=== PATIENT | female | born 1950 | race Caucasian/White ===

== ENCOUNTER 2016-05-20 14:57 | Emergency (ER) | payer MEDICAID, MEDICARE ==
[2016-05-20 15:08] VITALS: BP 148/75
--- NOTE | 2016-05-23 08:34 | ED ---
Medical Screening - HPI Summary HPI Summary: Patient arrives to ED with CC of oxycontin med request. She has been taking these medications for years and is prescribed 2 weeks at a time through the pain clinic. She states recently this has been happeneing and she normally will call the office to double check the prescriptions were sent. However, she forgot to do this, called the pharmacy who did not have her prescriptions. She called her doctor who was oncall but he stated she would need to come to the ED for a med refill. Istop verified that patient has been taking these medications. Patient states she has enough Dilaudid and only needs the 10mg Oxycontin. She has had enough for this morning so denies pain, but she took her last one this AM and must get through the weekend. She is under contract at the pain center - History of Current Complaint Chief Complaint: EDPrescriptionNeeded Stated Complaint: NEED PAIN MEDS Time Seen by Provider: 05/20/16 15:20 Onset/Duration: Started Hours Ago PMH/Surg Hx/FS Hx/Imm Hx Previously Healthy: No - diabetes, pain, pain control Endocrine/Hematology History: Reports: Hx Diabetes - TYPE II- ON ORAL MEDICATION AND INSULIN FOR, Hx Anemia - MILD IN THE PAST Denies: Hx Systemic Lupus Erythematosus Cardiovascular History: Reports: Hx Hypercholesterolemia, Hx Hypertension - ON MEDICATION FOR, Other Cardiovascular Problems/Disorders - SUPERIOR VENA CAVA [id number][facility] Denies: Hx Congestive Heart Failure - superior vena cava syndrome, Hx Pacemaker/ICD Respiratory History: Reports: Hx Asthma GI History: Reports: Hx Gastroesophageal Reflux Disease - ON MEDICATION FOR, Hx Hiatal Hernia, Other GI Disorders - HX DIVERTICULOSIS History: Denies: Hx Dialysis, Hx Renal Disease Musculoskeletal History: Reports: Hx Arthritis - OSTEO, Hx Osteoporosis, Hx Tendonitis - WRISTS AND ELBOWS, Other Musculoskeletal History - DEGEN DISC DISEASE Denies: Hx Rheumatoid Arthritis - myeloradicular neurapathy Sensory History: Reports: Hx Cataracts - BILAT, Hx Contacts or Glasses - READING GLASSES Denies: Hx Hearing Aid Opthamlomology History: Reports: Hx Cataracts - BILAT, Hx Contacts or Glasses - READING GLASSES Neurological History: Reports: Hx Headaches, Hx Migraine - 2-3 TIMES PER WEEK- TREATS WITH IMITREX, Other Neuro Impairments/Disorders - multiple sclerosis, FIBROMYALGIA, MYELORADICULAR NEUROPATHY Psychiatric History: Reports: Hx Depression - MILD Denies: Hx Panic Disorder - Cancer History Hx Chemotherapy: No - Surgical History Surgery Procedure, Year, and Place: Hysterectomy 1999 [facility] [place]. D+C 1999 [facility] [place]. BOWEL RESECTION, COLOSTOMY 1993. COLOSTOMY WITH REVERSAL 1994 [facility] [place]. OVARIAN CYSTECTOMY 1996 [facility] [place]. LAP CRISTIAN WITH INFUSAPORT REMOVAL 2013 [facility] [place]. APPY REMOVAL OF RIGHT OVARIAN CYST AND RESECTION 1968. T&A. DEVIATED SEPTUM REPAIR. SINUS SURGERY 2005 [facility] [place]. INFUSAPORT 2003. 2015- LEFT EYE CATARACT REMOVED Hx Anesthesia Reactions: No Infectious Disease History: No Infectious Disease History: Reports: Hx Hepatitis - "medical"- only while taking a medication-states no longer takes, name unkn Denies: Traveled Outside the [place] in Last 30 Days - Social History Occupation: Disabled Lives: With Family Alcohol Use: None Hx Substance Use: No Substance Use Type: Reports: None Hx Tobacco Use: Yes Smoking Status (MU): Former Smoker Type: Cigarettes Amount Used/How Often: 4 PPD X 15 YEARS Length of Time of Smoking/Using Tobacco: 20 YRS Have You Smoked in the Last Year: No Review of Systems Constitutional: Negative Cardiovascular: Negative Respiratory: Negative Positive: no symptoms reported, see HPI Musculoskeletal: Negative Skin: Negative Positive: Headache Psychological: Normal All Other Systems Reviewed And Are Negative: Yes Physical Exam Triage Information Reviewed: Yes Vital Signs On Initial Exam: Initial Vitals Temp Pulse Resp BP Pulse Ox 98.1 F 76 16 148/75 97 05/20/16 15:06 05/20/16 15:06 05/20/16 15:06 05/20/16 15:06 05/20/16 15:06 Vital Signs Reviewed: Yes Appearance: Positive: Well-Appearing, No Pain Distress, Well-Nourished Skin: Positive: Warm, Skin Color Reflects Adequate Perfusion Head/Face: Positive: Normal Head/Face Inspection Eyes: Positive: EOMI, Conjunctiva Clear Neck: Positive: Supple, No Lymphadenopathy Respiratory/Lung Sounds: Positive: Clear to Auscultation Cardiovascular: Positive: Normal, RRR Musculoskeletal: Positive: Normal, Strength/ROM Intact Neurological: Positive: Normal, Speech Normal Diagnostics - Vital Signs Vital Signs Temp Pulse Resp BP Pulse Ox 05/20/16 15:06 98.1 F 76 16 148/75 97 - Laboratory Lab Statement: Any lab studies that have been ordered have been reviewed, and results considered in the medical decision making process. Course/Dx - Course Course Of Treatment: Istop verified. Medications verified. Provider able to give weekend worth of oxycontin based on med history. Patient OK to call PCP on Sunday for refill of meds. - Diagnoses Provider Diagnoses: Medication refill Discharge - Discharge Plan Condition: Stable Disposition: HOME Prescriptions: oxyCODONE SR TAB(*) [Oxycontin 10 mg (*)] 10 mg PO Q12HR #5 tab.sr MDD 2 Referrals: Justa Hoskins MD [Primary Care Provider] - Additional Instructions: Follow up with Dr. Duncan
== END 2016-05-20 15:27 | disposition home or self-care (01) ==
LOC: ED 14:57
DX: Z76.0 Encounter for issue of repeat prescription (principal); R51 Headache; Z87.891 Personal history of nicotine dependence
CPT/HCPCS: 99281

== ENCOUNTER 2016-08-23 13:07 | Emergency (ER) | payer MEDICARE, MEDICAID ==
[2016-08-23] MEDS ORDERED: NS 0.9% 1000 ML* 1,000 ML IV ONE (14:42)
[2016-08-23 15:32] LABS: Hematocrit 39 % (35-47); Hemoglobin 12.5 g/dl (12.0-16.0); Mean Corpuscular HGB Conc 32 g/dl (31-36); Mean Corpuscular Hemoglobin 28 pg (27-31); Mean Corpuscular Volume 85 fL (80-97); Mean Platelet Volume 8 um3 (7.4-10.4); Red Blood Count 4.55 10^6/ul (4.0-5.4); Red Cell Distribution Width 18 % (10.5-15); White Blood Count 11.7 10^3/ul (3.5-10.8)
[2016-08-23 15:45] LABS: Albumin 3.8 g/dL (3.2-5.2); BUN/Creatinine Ratio 15.9 (8-20); C Reactive Protein 1.45 mg/L (< 5.00); Calcium 9.3 mg/dL (8.6-10.3); EGFR African American 46.3 (>60); Globulin 2.8 g/dL (2-4); Magnesium 2.6 mg/dL (1.9-2.7); Potassium 3.1 mmol/L (3.5-5.0); Total Bilirubin 0.8 mg/dL (0.2-1.0); Total Protein 6.6 g/dL (6.4-8.9)
[2016-08-23 15:46] LABS: Troponin I 0.01 ng/mL (<0.04)
[2016-08-23 16:01] LABS: Urine Bacteria 1+ (Absent); Urine Bilirubin Negative (Negative); Urine Glucose Negative (Negative); Urine Nitrite Negative (Negative)
[2016-08-23 16:16] LABS: TSH (Thyroid Stimulating Horm) 3.29 mcIU/mL (0.34-5.60)
[2016-08-23] MEDS ORDERED: Potassium Chlor TAB* 20 MEQ TAB.ER PO ONE (16:16)
[2016-08-23] MEDS ORDERED: Ciprofloxacin 400MG IVPREMIX(* 400 MG/200 ML BAG IVPB ONE (16:54)
[2016-08-23] MEDS ORDERED: HYDROmorphone* 1 MG/ML 1 ML SYR IV ONE ×2 (16:57→22:33)
[2016-08-23] MEDS ORDERED: Ondansetron INJ* 2 MG/ML VIAL IV ONE (18:11)
[2016-08-23 22:54] VITALS: BP 96/51
--- NOTE | 2016-08-23 22:55 | HP ---
H&P (Free Text) History and Physical: PCP: Mae Rayo MD Date/Time of Evaluation: 08/23/2016 6950 CC: generalized weakness HPI: Mrs Brown is a 65YO female w/ complex medical and allergy HX outlined below who was referred to [facility] by her PCP for concern of generalized weakness. Mrs Brown is a rather difficult tangential historian, but relates developing generalized weakness associated with N/V 3 weeks ago. She relates some subjective "low grade fevers", but denies chills and sweats. She has chronic pain which is currently exacerbated due to a fall. She reports B/U/F of urine, but no samuel hematuria. Bowels are stable. ED evaluation is notable for dehydration for which she has been given IVFs, a low potassium for which replacement was given, and a UTI which would explain her generalized weakness and urinary symptoms. However, she was initially refusing discharge prompting this consult request. 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 GERD chronic pain syndrome depression, major Vitamin D deficiency Ambulatory Orders Estradiol 1 mg PO QAM 12/28/11 HYDROmorphone TAB* [Dilaudid TAB*] 8 mg PO Q3HR PRN 12/28/11 Sunflower-3 Fatty Acids [Fish Oil] 2,000 mg PO BID 12/28/11 Topiramate TAB(*) [Topamax(*)] 50 mg PO BID 05/15/12 metFORMIN* [Glucophage*] 1,000 mg PO BID 03/31/13 Atenolol TAB* [Tenormin TAB*] 12.5 mg PO QAM 07/29/14 Baclofen TAB* [Lioresal TAB*] 20 mg PO QID 07/29/14 Bumetanide TAB* [Bumex TAB*] 2 mg PO BID 07/29/14 Dexlansoprazole (NF) [Dexilant (NF)] 60 mg PO 0700 07/29/14 Ipratropium Addison (Nasal) [Ipratropium Addison] 1 spray BOTH NARES QID Linaclotide (NF) [Linzess (NF)] 290 mcg PO QAM 07/29/14 Ondansetron TAB* [Zofran Tab*] 4 mg PO Q4HR 07/29/14 Alpha-Lipoic Acid (Thioctic AC [Alpha Lipoic Acid] 100 mg PO BID 01/27/15 LevoCETirizine TAB (NF) [Xyzal TAB (NF)] 5 mg PO DAILY 01/27/15 Magnesium 6 gm PO BID MDD powder in fluid 01/27/15 Azelastine 0.15% NASAL(NF) [Astepro 0.15% NASAL (NF)] 2 spray BOTH NARES BID 02/03 Brimonidine Tartrate (Topical) [Mirvaso] 1 applic TOPICAL DAILY PRN 03/02/15 Cholecalciferol [Vitamin D] 1,000 unit PO TID 03/02/15 Clobetasol 0.05% OINT* 1 applic TOPICAL BID 03/02/15 Metronidazole (TOPICAL)(NF) [Metrocream (NF)] 1 applic TOPICAL BID 03/02/15 Humalog 2 - 10 units SUBCUT DAILY MDD per sliding scale 03/03/15 Atorvastatin* [Lipitor*] 10 mg PO 1700 06/07/15 SUMAtriptan TAB* [Imitrex TAB*] 100 mg PO Q6HR 06/07/15 Bioflavonoid Products [Ysabel-C] 500 mg PO BID 10/22/15 Floradix 10 ml PO BID 10/22/15 Folic Acid TAB* [Folvite TAB*] 1 mg PO DAILY 10/22/15 Insulin Glulisine [Apidra Solostar] 47 unit SC BEDTIME 10/22/15 Magnesium Citrate (Bulk) [Magnesium Citrate] 6 gm PO BID 10/22/15 oxyCODONE SR TAB(*) [Oxycontin 10 mg (*)] 10 mg PO Q12HR #5 tab.sr MDD 2 Ciprofloxacin TAB* [Cipro Tab*] 500 mg PO BID #20 tab 08/23/16 Allergies Cortisone Allergy (Severe, Verified 10/22/15 15:30) Difficulty Breathing rashes, jittery with pills only Methylprednisolone [From Medrol] Allergy (Severe, Verified 10/22/15 15:30) Difficulty Breathing and swelling with pills Tizanidine [From Zanaflex] Allergy (Intermediate, Verified 10/22/15 15:30) lips and face swelling, Shortness of breath Ibuprofen [From Motrin] Allergy (Mild, Verified 08/23/16 23:03) Rash And Itching Itraconazole Allergy (Mild, Verified 08/23/16 23:03) Rash Lanolin Allergy (Mild, Verified 08/23/16 23:03) Rash Latex Allergy (Mild, Verified 08/23/16 23:03) SEVERE ITCHING Penicillins Allergy (Mild, Verified 08/23/16 23:03) Rash Propoxyphene [From Darvocet-N] Allergy (Mild, Verified 08/23/16 23:03) Rash NAUSEA Sulfasalazine Allergy (Mild, Verified 08/23/16 23:03) Rash Talc Allergy (Mild, Verified 08/23/16 23:03) Rash Sulindac [From Clinoril] Allergy (Unknown, Verified 08/23/16 23:03) Unknown Reaction Details RASH AND FEVER Acetaminophen [From Darvocet-N] Allergy (Verified 10/22/15 15:30) Unknown Reaction Details Adhesive Tape Allergy (Verified 10/22/15 15:30) Unknown Reaction Details PAPER TAPE OK Alprazolam [From Xanax] Allergy (Verified 10/22/15 15:30) Unknown Reaction Details Amitriptyline [From Elavil] Allergy (Verified 10/22/15 15:30) Unknown Reaction Details Aspirin Allergy (Verified 10/22/15 15:30) Unknown Reaction Details Cefaclor [From Ceclor] Allergy (Verified 10/22/15 15:30) Unknown Reaction Details Chlorine Allergy (Verified 10/22/15 15:30) Unknown Reaction Details CI Pigment Blue 63 [From Cymbalta] Allergy (Verified 10/22/15 15:30) Unknown Reaction Details Clarithromycin [From Biaxin] Allergy (Verified 10/22/15 15:30) Unknown Reaction Details Codeine Allergy (Verified 10/22/15 15:30) Unknown Reaction Details Desipramine [From Norpramin] Allergy (Verified 10/22/15 15:30) Unknown Reaction Details Diazepam [From Valium] Allergy (Verified 10/22/15 15:30) Unknown Reaction Details Diphenhydramine [From Benadryl] Allergy (Verified 10/22/15 15:30) Unknown Reaction Details Doxepin Allergy (Verified 10/22/15 15:30) Unknown Reaction Details Doxycycline Allergy (Verified 10/22/15 15:30) Unknown Reaction Details Duloxetine [From Cymbalta] Allergy (Verified 10/22/15 15:30) Unknown Reaction Details Fentanyl Allergy (Verified 10/22/15 15:30) Unknown Reaction Details CAUSED PAIN Fluoxetine [From Prozac] Allergy (Verified 10/22/15 15:30) Unknown Reaction Details Gabapentin [From Neurontin] Allergy (Verified 10/22/15 15:30) Unknown Reaction Details CAUSES PAIN Hydrocortisone [From Cortizone-5] Allergy (Verified 10/22/15 15:30) Unknown Reaction Details Hydromorphone [From Dilaudid] Allergy (Verified 10/22/15 15:30) Unknown Reaction Details GENERIC FORM ONLY CAUSES HEART PALPATATIONS CAN ONLY USE BRAND NAME Hydroxychloroquine Allergy (Verified 10/22/15 15:30) Unknown Reaction Details Naproxen [From Naprosyn] Allergy (Verified 10/22/15 15:30) Unknown Reaction Details Paroxetine [From Paxil] Allergy (Verified 10/22/15 15:30) Unknown Reaction Details Piroxicam [From Feldene] Allergy (Verified 10/22/15 15:30) Unknown Reaction Details INCREASED PAIN Trazodone Allergy (Verified 10/22/15 15:30) Unknown Reaction Details CONFUSION AND CAN'T SLEEP Methylparaben [From Opana ER] Adverse Reaction (Mild, Verified 08/23/16 23:03) Palpitations PAIN IN SHOULDERS AND CHEST Milnacipran [From Savella] Adverse Reaction (Mild, Verified 08/23/16 23:03) Swelling RASH ITCH Mometasone [From Nasonex] Adverse Reaction (Mild, Verified 08/23/16 23:03) Headache Morphine Adverse Reaction (Mild, Verified 08/23/16 23:03) Hallucinations Naloxone [From Talwin Nx] Adverse Reaction (Mild, Verified 08/23/16 23:03) Headache ALMOST PASSED OUT Ondansetron [From Zofran] Adverse Reaction (Mild, Verified 08/23/16 23:03) Headache MIGRAINE H/A Oxycodone Adverse Reaction (Mild, Verified 08/23/16 23:03) Palpitations CHEST AND STOMACH PAIN MUSCLE SPASMS WITH GENEREIC FORM ONLY Oxymorphone [From Opana ER] Adverse Reaction (Mild, Verified 08/23/16 23:03) Palpitations SEVERE CHEST PAIN Pentazocine [From Talwin Nx] Adverse Reaction (Mild, Verified 08/23/16 23:03) Palpitations SEVERE CHEST PAIN Perfume [Fragrance] Adverse Reaction (Mild, Verified 08/23/16 23:03) Coughing TROUBLE BREATHING Tramadol [From Ultram] Adverse Reaction (Mild, Verified 08/23/16 23:03) Muscle Ache INCREASED PAIN Tricyclic Antidepressants Adverse Reaction (Mild, Verified 08/23/16 23:03) See Comment MENTAL CONFUSION ALL MELONS Allergy (Severe, Uncoded 10/22/15 15:30) Anaphylatic Shock SWELLING AND RASH APPLE AND GRAPE JUICE Allergy (Severe, Uncoded 10/22/15 15:30) Anaphylatic Shock BLACK PEPPER Allergy (Intermediate, Uncoded 10/22/15 15:30) HIVES, TROUBLE BREATHING, ITCHING, BAD STOMACH PAIN MILK Allergy (Intermediate, Uncoded 08/23/16 23:03) HIVES, STOMACH PAIN, TROUBLE BREATING RAW ONIONS Allergy (Intermediate, Uncoded 08/23/16 23:03) TROUBLE BREATHING, HIVES VINEGAR Allergy (Intermediate, Uncoded 08/23/16 23:03) TROUBLE BREATHING APPLESAUCE Allergy (Mild, Uncoded 08/23/16 23:03) Edema THROAT SWELLING ENVRIONMENTAL Allergy (Mild, Uncoded 08/23/16 23:03) Sneezing PEPPERS Allergy (Uncoded 10/22/15 15:30) Unknown Reaction Details BANDAIDS Adverse Reaction (Mild, Uncoded 08/23/16 23:03) Blisters CIGARETTE SMOKE Adverse Reaction (Mild, Uncoded 08/23/16 23:03) Airway Obstruction ICEBERG LETTUCE Adverse Reaction (Mild, Uncoded 08/23/16 23:03) Stomach Cramps PSurgHx cataract extraction tonsillectomy cholecystectomy appendectomy hysterectomy SocHx: former smoker, denies alcohol or recreational drugs; lives alone, uses a wheelchair primarily with a walker for short distance in home; full code status FamHx: Mother: liver failure, melanoma, COPD, HTN, RA; Father: asthma, RA; Brother: addiction, depression; Sister: asthma, depression ROS: as above, otherwise reviewed and all were negative or unchanged from her baseline Constitutional: NAD, normally developed, overweight white female without objective signs of discomfort vitals: Vital Signs Temp 36.4 C 08/23/16 22:52 Pulse 71 08/23/16 22:52 Resp 15 08/23/16 22:52 BP 96/51 08/23/16 22:52 Pulse Ox 99 08/23/16 21:12 Intake & Output 08/22/16 08/23/16 08/23/16 23:59 11:59 23:59 Intake Total 1200 Balance 1200 Weight 68.946 kg Intake: IV Fluids 1200 Other: Estimated Stool Amount Medium HEENM: atraumatic; sclera/conjunctiva: non-icteric/clear; hearing: clinically intact; oropharynx: clear, mucosa moist Neck: soft tissue: non-tender; thyroid: non-tender Pulmonary: clear to auscultation bilaterally, good aeration, no accessory muscle use CV: RR/RR, normal S1S2, no carotid bruit, no jugular venous distention, 2+ B DP/ PT, no edema Abdominal: soft, non-distended, mild hypogastric discomfort, no rebound/guarding /rigidity, normoactive bowel sounds, no hepatosplenomegaly or masses, no costovertebral angle tenderness Musculoskeletal: general: grossly intact, able to sit up in bed without assist or objective discomfort; gait: observed by ED MD to ambulate to restroom with a walker w/ standby assist Integumental: recent ecchymosis L elbow w/ full ROM Psychiatric orientation: AA&O to PPS affect: calm mood: cooperative eye contact: good content: reliable responses: tangential insight: fair Testing: Lab Results 08/23/16 08/23/16 08/23/16 Range/Units 15:11 15:11 15:11 WBC 11.7 H (3.5-10.8) 10^3/ul RBC 4.55 (4.0-5.4) 10^6/ul Hgb 12.5 (12.0-16.0) g/dl Hct 39 (35-47) % MCV 85 (80-97) fL MCH 28 (27-31) pg MCHC 32 (31-36) g/dl RDW 18 H (10.5-15) % Plt Count 234 (150-450) 10^3/ul MPV 8 (7.4-10.4) um3 Neut % (Auto) 52.4 (38-83) % Lymph % (Auto) 39.0 (25-47) % [place] % (Auto) 2.7 (1-9) % Eos % (Auto) 5.1 (0-6) % Baso % (Auto) 0.8 (0-2) % Absolute Neuts (auto) 6.1 (1.5-7.7) 10^3/ul Absolute Lymphs (auto) 4.6 (1.0-4.8) 10^3/ul Absolute Monos (auto) 0.3 (0-0.8) 10^3/ul Absolute Eos (auto) 0.6 (0-0.6) 10^3/ul Absolute Basos (auto) 0.1 (0-0.2) 10^3/ul Absolute Nucleated RBC 0.01 10^3/ul Nucleated RBC % 0.1 INR (Anticoag Therapy) (0.89-1.11) Sodium 135 (133-145) mmol/L Potassium 3.1 L (3.5-5.0) mmol/L Chloride 98 L (101-111) mmol/L Carbon Dioxide 31 (22-32) mmol/L Anion Gap 6 (2-11) mmol/L BUN 23 (6-24) mg/dL Creatinine 1.45 H (0.51-0.95) mg/dL Est GFR ( Amer) 46.3 (>60) Est GFR (Non-Af Amer) 36.0 (>60) BUN/Creatinine Ratio 15.9 (8-20) Glucose 75 (70-100) mg/dL Lactic Acid 1.2 (0.5-2.0) mmol/L Calcium 9.3 (8.6-10.3) mg/dL Magnesium 2.6 (1.9-2.7) mg/dL Total Bilirubin 0.80 (0.2-1.0) mg/dL AST 27 (13-39) U/L ALT 38 (7-52) U/L Alkaline Phosphatase 57 (34-104) U/L Troponin I 0.01 (<0.04) ng/mL C-Reactive Protein 1.45 (< 5.00) mg/L Total Protein 6.6 (6.4-8.9) g/dL Albumin 3.8 (3.2-5.2) g/dL Globulin 2.8 (2-4) g/dL Albumin/Globulin Ratio 1.4 (1-3) TSH 3.29 (0.34-5.60) mcIU/mL Urine Color Urine Appearance Urine pH (5-9) Ur Specific [place] (1.010-1.030) Urine Protein (Negative) Urine Ketones (Negative) Urine Blood (Negative) Urine Nitrate (Negative) Urine Bilirubin (Negative) Urine Urobilinogen (Negative) Ur Leukocyte Esterase (Negative) Urine WBC (Auto) (Absent) Urine RBC (Auto) (Absent) Ur Squamous Epith Cells (Absent) Urine Bacteria (Absent) Hyaline Casts (Absent) Urine Glucose (Negative) 08/23/16 08/23/16 Range/Units 15:11 15:29 WBC (3.5-10.8) 10^3/ul RBC (4.0-5.4) 10^6/ul Hgb (12.0-16.0) g/dl Hct (35-47) % MCV (80-97) fL MCH (27-31) pg MCHC (31-36) g/dl RDW (10.5-15) % Plt Count (150-450) 10^3/ul MPV (7.4-10.4) um3 Neut % (Auto) (38-83) % Lymph % (Auto) (25-47) % [place] % (Auto) (1-9) % Eos % (Auto) (0-6) % Baso % (Auto) (0-2) % Absolute Neuts (auto) (1.5-7.7) 10^3/ul Absolute Lymphs (auto) (1.0-4.8) 10^3/ul Absolute Monos (auto) (0-0.8) 10^3/ul Absolute Eos (auto) (0-0.6) 10^3/ul Absolute Basos (auto) (0-0.2) 10^3/ul Absolute Nucleated RBC 10^3/ul Nucleated RBC % INR (Anticoag Therapy) 0.90 (0.89-1.11) Sodium (133-145) mmol/L Potassium (3.5-5.0) mmol/L Chloride (101-111) mmol/L Carbon Dioxide (22-32) mmol/L Anion Gap (2-11) mmol/L BUN (6-24) mg/dL Creatinine (0.51-0.95) mg/dL Est GFR ( Amer) (>60) Est GFR (Non-Af Amer) (>60) BUN/Creatinine Ratio (8-20) Glucose (70-100) mg/dL Lactic Acid (0.5-2.0) mmol/L Calcium (8.6-10.3) mg/dL Magnesium (1.9-2.7) mg/dL Total Bilirubin (0.2-1.0) mg/dL AST (13-39) U/L ALT (7-52) U/L Alkaline Phosphatase (34-104) U/L Troponin I (<0.04) ng/mL C-Reactive Protein (< 5.00) mg/L Total Protein (6.4-8.9) g/dL Albumin (3.2-5.2) g/dL Globulin (2-4) g/dL Albumin/Globulin Ratio (1-3) TSH (0.34-5.60) mcIU/mL Urine Color Yellow Urine Appearance Cloudy Urine pH 6.0 (5-9) Ur Specific [place] 1.008 L (1.010-1.030) Urine Protein Negative (Negative) Urine Ketones Negative (Negative) Urine Blood Negative (Negative) Urine Nitrate Negative (Negative) Urine Bilirubin Negative (Negative) Urine Urobilinogen Negative (Negative) Ur Leukocyte Esterase 3+ H (Negative) Urine WBC (Auto) 2+(11-20/hpf) H (Absent) Urine RBC (Auto) 2+(6-10/hpf) H (Absent) Ur Squamous Epith Cells Present H (Absent) Urine Bacteria 1+ H (Absent) Hyaline Casts Present H (Absent) Urine Glucose Negative (Negative) ECG, personally reviewed: sinus bradycardia rate 54, no ischemia Impression: 65F w/ complex medical & allergy HX outlined above presents with uncomplicated UTI DIAGNOSIS & PLAN Primary uncomplicated UTI : advised patient no indication for admission : patient agrees to discharge with PCP f/u : PO ciprofloxacin 500mg BID x5 days : follow urine CX results : PCP f/u in ~1week, sooner for worsening : return to ED for fever >101F, intractable N/V, flank pain, or other symptoms she feels warrant emergency evaluation Secondary DM2 : continue current outpatient regimen idiopathic peripheral neuropathy : continue current outpatient regimen GERD : continue current outpatient regimen chronic pain syndrome : continue current outpatient regimen depression, major : continue current outpatient regimen
--- NOTE | 2016-08-25 14:12 | ED ---
Bryan Starks SooYoung, scribed for Carlos Lainez MD on 08/23/16 at 1421 . Neurological HPI - HPI Summary HPI Summary: A 65 y/o F presents to ED referred by Dr. Hoskins with c/o worsening, acute on chronic weakness onset five days ago. Pert PMHx: autoimmune dz. Pt had a fall five days ago from standing. Associated sx: n/v, multiple ecchymosis from fall, dysuria, lower back pain, sharp abd pain onset approx few weeks ago. Aggravating factors: hot weather; palpation to abd. Pt lives alone, states she does not feel safe at home currently because she's too weak. Pt had Zofran at 1000. - History of Current Complaint Chief Complaint: EDWeakness Stated Complaint: VOMITING/HEADACHE Time Seen by Provider: 08/23/16 14:17 Hx Obtained From: Patient, Family/Solution Specialist - present Onset/Duration: Started days ago - five days ago, Still Present Timing: Constant Current Severity: Moderate Seizure Severity: Moderate Pain Intensity: 0 Pain Scale Used: 0-10 Numeric Character: Other: - pos: ecchymosis from fall, dysuria, Associated Signs and Symptoms: Positive: Pain - abd pain, lower back pain, Nausea/Vomiting - Allergy/Home Medications Allergies/Adverse Reactions: Allergies Allergy/AdvReac Type Severity Reaction Status Date / Time Cortisone Allergy Severe Difficulty Verified 10/22/15 15:30 Breathing Methylprednisolone Allergy Severe Difficulty Verified 10/22/15 15:30 [From Medrol] Breathing Tizanidine [From Zanaflex] Allergy Intermediate lips and Verified 10/22/15 15:30 face swelling, Shortness of breath Ibuprofen [From Motrin] Allergy Mild Rash And Verified 08/23/16 23:03 Itching Itraconazole Allergy Mild Rash Verified 08/23/16 23:03 Lanolin Allergy Mild Rash Verified 08/23/16 23:03 Latex Allergy Mild SEVERE Verified 08/23/16 23:03 ITCHING Penicillins Allergy Mild Rash Verified 08/23/16 23:03 Propoxyphene Allergy Mild Rash Verified 08/23/16 23:03 [From Darvocet-N] Sulfasalazine Allergy Mild Rash Verified 08/23/16 23:03 Talc Allergy Mild Rash Verified 08/23/16 23:03 Sulindac [From Clinoril] Allergy Unknown Unknown Verified 08/23/16 23:03 Reaction Details Acetaminophen Allergy Unknown Verified 10/22/15 15:30 [From Darvocet-N] Reaction Details Adhesive Tape Allergy Unknown Verified 10/22/15 15:30 Reaction Details Alprazolam [From Xanax] Allergy Unknown Verified 10/22/15 15:30 Reaction Details Amitriptyline [From Elavil] Allergy Unknown Verified 10/22/15 15:30 Reaction Details Aspirin Allergy Unknown Verified 10/22/15 15:30 Reaction Details Cefaclor [From Ceclor] Allergy Unknown Verified 10/22/15 15:30 Reaction Details Chlorine Allergy Unknown Verified 10/22/15 15:30 Reaction Details CI Pigment Blue 63 Allergy Unknown Verified 10/22/15 15:30 [From Cymbalta] Reaction Details Clarithromycin [From Biaxin] Allergy Unknown Verified 10/22/15 15:30 Reaction Details Codeine Allergy Unknown Verified 10/22/15 15:30 Reaction Details Desipramine [From Norpramin] Allergy Unknown Verified 10/22/15 15:30 Reaction Details Diazepam [From Valium] Allergy Unknown Verified 10/22/15 15:30 Reaction Details Diphenhydramine Allergy Unknown Verified 10/22/15 15:30 [From Benadryl] Reaction Details Doxepin Allergy Unknown Verified 10/22/15 15:30 Reaction Details Doxycycline Allergy Unknown Verified 10/22/15 15:30 Reaction Details Duloxetine [From Cymbalta] Allergy Unknown Verified 10/22/15 15:30 Reaction Details Fentanyl Allergy Unknown Verified 10/22/15 15:30 Reaction Details Fluoxetine [From Prozac] Allergy Unknown Verified 10/22/15 15:30 Reaction Details Gabapentin [From Neurontin] Allergy Unknown Verified 10/22/15 15:30 Reaction Details Hydrocortisone Allergy Unknown Verified 10/22/15 15:30 [From Cortizone-5] Reaction Details Hydromorphone [From Dilaudid] Allergy Unknown Verified 10/22/15 15:30 Reaction Details Hydroxychloroquine Allergy Unknown Verified 10/22/15 15:30 Reaction Details Naproxen [From Naprosyn] Allergy Unknown Verified 10/22/15 15:30 Reaction Details Paroxetine [From Paxil] Allergy Unknown Verified 10/22/15 15:30 Reaction Details Piroxicam [From Feldene] Allergy Unknown Verified 10/22/15 15:30 Reaction Details Trazodone Allergy Unknown Verified 10/22/15 15:30 Reaction Details Methylparaben [From Opana ER] AdvReac Mild Palpitation Verified 08/23/16 23:03 s Milnacipran [From Savella] AdvReac Mild Swelling Verified 08/23/16 23:03 Mometasone [From Nasonex] AdvReac Mild Headache Verified 08/23/16 23:03 Morphine AdvReac Mild Hallucinati Verified 08/23/16 23:03 ons Naloxone [From Talwin Nx] AdvReac Mild Headache Verified 08/23/16 23:03 Ondansetron [From Zofran] AdvReac Mild Headache Verified 08/23/16 23:03 Oxycodone AdvReac Mild Palpitation Verified 08/23/16 23:03 s Oxymorphone [From Opana ER] AdvReac Mild Palpitation Verified 08/23/16 23:03 s Pentazocine [From Talwin Nx] AdvReac Mild Palpitation Verified 08/23/16 23:03 s Perfume [Fragrance] AdvReac Mild Coughing Verified 08/23/16 23:03 Tramadol [From Ultram] AdvReac Mild Muscle Ache Verified 08/23/16 23:03 Tricyclic Antidepressants AdvReac Mild See Comment Verified 08/23/16 23:03 ALL MELONS Allergy Severe Anaphylatic Uncoded 10/22/15 15:30 Shock APPLE AND GRAPE JUICE Allergy Severe Anaphylatic Uncoded 10/22/15 15:30 Shock BLACK PEPPER Allergy Intermediate HIVES, Uncoded 10/22/15 15:30 TROUBLE BREATHING, ITCHING, BAD STOMACH PAIN MILK Allergy Intermediate HIVES, Uncoded 08/23/16 23:03 STOMACH PAIN, TROUBLE BREATING RAW ONIONS Allergy Intermediate TROUBLE Uncoded 08/23/16 23:03 BREATHING, HIVES VINEGAR Allergy Intermediate TROUBLE Uncoded 08/23/16 23:03 BREATHING APPLESAUCE Allergy Mild Edema Uncoded 08/23/16 23:03 ENVRIONMENTAL Allergy Mild Sneezing Uncoded 08/23/16 23:03 PEPPERS Allergy Unknown Uncoded 10/22/15 15:30 Reaction Details BANDAIDS AdvReac Mild Blisters Uncoded 08/23/16 23:03 CIGARETTE SMOKE AdvReac Mild Airway Uncoded 08/23/16 23:03 Obstruction ICEBERG LETTUCE AdvReac Mild Stomach Uncoded 08/23/16 23:03 Cramps PMH/Surg Hx/FS Hx/Imm Hx Previously Healthy: No Endocrine/Hematology History: Reports: Hx Diabetes - TYPE II- ON ORAL MEDICATION AND INSULIN FOR, Hx Anemia - MILD IN THE PAST Denies: Hx Systemic Lupus Erythematosus Cardiovascular History: Reports: Hx Hypercholesterolemia, Hx Hypertension - ON MEDICATION FOR, Other Cardiovascular Problems/Disorders - SUPERIOR VENA CAVA [id number]. [facility] Denies: Hx Congestive Heart Failure - superior vena cava syndrome, Hx Pacemaker/ICD Respiratory History: Reports: Hx Asthma GI History: Reports: Hx Gastroesophageal Reflux Disease - ON MEDICATION FOR, Hx Hiatal Hernia, Other GI Disorders - HX DIVERTICULOSIS History: Denies: Hx Dialysis, Hx Renal Disease Musculoskeletal History: Reports: Hx Arthritis - OSTEO, Hx Osteoporosis, Hx Tendonitis - WRISTS AND ELBOWS, Other Musculoskeletal History - DEGEN DISC DISEASE Denies: Hx Rheumatoid Arthritis - myeloradicular neurapathy Sensory History: Reports: Hx Cataracts - BILAT, Hx Contacts or Glasses - READING GLASSES Denies: Hx Hearing Aid Opthamlomology History: Reports: Hx Cataracts - BILAT, Hx Contacts or Glasses - READING GLASSES Neurological History: Reports: Hx Headaches, Hx Migraine - 2-3 TIMES PER WEEK- TREATS WITH IMITREX, Other Neuro Impairments/Disorders - multiple sclerosis, FIBROMYALGIA, MYELORADICULAR NEUROPATHY Psychiatric History: Reports: Hx Depression - MILD Denies: Hx Panic Disorder - Cancer History Hx Chemotherapy: No - Surgical History Surgery Procedure, Year, and Place: Hysterectomy 1999 [facility] [place]. D+C 1999 [facility] [place]. BOWEL RESECTION, COLOSTOMY 1993. COLOSTOMY WITH REVERSAL 1994 [facility] [place]. OVARIAN CYSTECTOMY 1996 [facility] [place]. LAP CRISTIAN WITH INFUSAPORT REMOVAL 2013 [facility] [place]. APPY REMOVAL OF RIGHT OVARIAN CYST AND RESECTION 1968. T&A. DEVIATED SEPTUM REPAIR. SINUS SURGERY 2006 [facility] [place]. INFUSAPORT 2004. 2014- LEFT EYE CATARACT REMOVED Hx Anesthesia Reactions: No Infectious Disease History: No Infectious Disease History: Reports: Hx Hepatitis - "medical"- only while taking a medication-states no longer takes, name unkn Denies: Traveled Outside the [place] in Last 30 Days - Family History Known Family History: Positive: Other - Breast CA; anasthesia reaction - Social History Occupation: Disabled Lives: Alone Alcohol Use: None Hx Substance Use: No Substance Use Type: Reports: None Hx Tobacco Use: Yes Smoking Status (MU): Former Smoker Type: Cigarettes Amount Used/How Often: 4 PPD X 15 YEARS Length of Time of Smoking/Using Tobacco: 20 YRS Have You Smoked in the Last Year: No Review of Systems Negative: Fever Positive: Abdominal Pain, Vomiting, Nausea Positive: dysuria Positive: Other - pos: back pain Positive: Bruising - from fall Positive: Weakness All Other Systems Reviewed And Are Negative: Yes Physical Exam Triage Information Reviewed: Yes Vital Signs On Initial Exam: Initial Vitals Temp Pulse Resp BP Pulse Ox 98.3 F 70 17 135/60 99 08/23/16 13:10 08/23/16 13:10 08/23/16 13:10 08/23/16 13:10 08/23/16 13:10 Vital Signs Reviewed: Yes Appearance: Positive: Well-Appearing, No Pain Distress Skin: Positive: Warm, Skin Color Reflects Adequate Perfusion, Dry Head/Face: Positive: Normal Head/Face Inspection Eyes: Positive: Normal ENT: Positive: Normal ENT inspection Neck: Positive: Supple, Nontender Respiratory/Lung Sounds: Positive: Clear to Auscultation, Breath Sounds Present Cardiovascular: Positive: RRR Abdomen Description: Positive: Soft, Other: - TENDERNESS IN BOTH LOWER QUADRANTS Bowel Sounds: Positive: Present Musculoskeletal: Positive: Normal Neurological: Positive: Normal Psychiatric: Positive: Normal, Affect/Mood Appropriate Diagnostics - Vital Signs Vital Signs Temp Pulse Resp BP Pulse Ox 08/23/16 13:10 98.3 F 70 17 135/60 99 - Laboratory Lab Results: Lab Results 08/23/16 08/23/16 08/23/16 Range/Units 15:11 15:11 15:11 WBC 11.7 H (3.5-10.8) 10^3/ul RBC 4.55 (4.0-5.4) 10^6/ul Hgb 12.5 (12.0-16.0) g/dl Hct 39 (35-47) % MCV 85 (80-97) fL MCH 28 (27-31) pg MCHC 32 (31-36) g/dl RDW 18 H (10.5-15) % Plt Count 234 (150-450) 10^3/ul MPV 8 (7.4-10.4) um3 Neut % (Auto) 52.4 (38-83) % Lymph % (Auto) 39.0 (25-47) % [place] % (Auto) 2.7 (1-9) % Eos % (Auto) 5.1 (0-6) % Baso % (Auto) 0.8 (0-2) % Absolute Neuts (auto) 6.1 (1.5-7.7) 10^3/ul Absolute Lymphs (auto) 4.6 (1.0-4.8) 10^3/ul Absolute Monos (auto) 0.3 (0-0.8) 10^3/ul Absolute Eos (auto) 0.6 (0-0.6) 10^3/ul Absolute Basos (auto) 0.1 (0-0.2) 10^3/ul Absolute Nucleated RBC 0.01 10^3/ul Nucleated RBC % 0.1 INR (Anticoag Therapy) (0.89-1.11) Sodium 135 (133-145) mmol/L Potassium 3.1 L (3.5-5.0) mmol/L Chloride 98 L (101-111) mmol/L Carbon Dioxide 31 (22-32) mmol/L Anion Gap 6 (2-11) mmol/L BUN 23 (6-24) mg/dL Creatinine 1.45 H (0.51-0.95) mg/dL Est GFR ( Amer) 46.3 (>60) Est GFR (Non-Af Amer) 36.0 (>60) BUN/Creatinine Ratio 15.9 (8-20) Glucose 75 (70-100) mg/dL Lactic Acid 1.2 (0.5-2.0) mmol/L Calcium 9.3 (8.6-10.3) mg/dL Magnesium 2.6 (1.9-2.7) mg/dL Total Bilirubin 0.80 (0.2-1.0) mg/dL AST 27 (13-39) U/L ALT 38 (7-52) U/L Alkaline Phosphatase 57 (34-104) U/L Troponin I 0.01 (<0.04) ng/mL C-Reactive Protein 1.45 (< 5.00) mg/L Total Protein 6.6 (6.4-8.9) g/dL Albumin 3.8 (3.2-5.2) g/dL Globulin 2.8 (2-4) g/dL Albumin/Globulin Ratio 1.4 (1-3) TSH 3.29 (0.34-5.60) mcIU/mL Urine Color Urine Appearance Urine pH (5-9) Ur Specific [place] (1.010-1.030) Urine Protein (Negative) Urine Ketones (Negative) Urine Blood (Negative) Urine Nitrate (Negative) Urine Bilirubin (Negative) Urine Urobilinogen (Negative) Ur Leukocyte Esterase (Negative) Urine WBC (Auto) (Absent) Urine RBC (Auto) (Absent) Ur Squamous Epith Cells (Absent) Urine Bacteria (Absent) Hyaline Casts (Absent) Urine Glucose (Negative) 08/23/16 08/23/16 Range/Units 15:11 15:29 WBC (3.5-10.8) 10^3/ul RBC (4.0-5.4) 10^6/ul Hgb (12.0-16.0) g/dl Hct (35-47) % MCV (80-97) fL MCH (27-31) pg MCHC (31-36) g/dl RDW (10.5-15) % Plt Count (150-450) 10^3/ul MPV (7.4-10.4) um3 Neut % (Auto) (38-83) % Lymph % (Auto) (25-47) % [place] % (Auto) (1-9) % Eos % (Auto) (0-6) % Baso % (Auto) (0-2) % Absolute Neuts (auto) (1.5-7.7) 10^3/ul Absolute Lymphs (auto) (1.0-4.8) 10^3/ul Absolute Monos (auto) (0-0.8) 10^3/ul Absolute Eos (auto) (0-0.6) 10^3/ul Absolute Basos (auto) (0-0.2) 10^3/ul Absolute Nucleated RBC 10^3/ul Nucleated RBC % INR (Anticoag Therapy) 0.90 (0.89-1.11) Sodium (133-145) mmol/L Potassium (3.5-5.0) mmol/L Chloride (101-111) mmol/L Carbon Dioxide (22-32) mmol/L Anion Gap (2-11) mmol/L BUN (6-24) mg/dL Creatinine (0.51-0.95) mg/dL Est GFR ( Amer) (>60) Est GFR (Non-Af Amer) (>60) BUN/Creatinine Ratio (8-20) Glucose (70-100) mg/dL Lactic Acid (0.5-2.0) mmol/L Calcium (8.6-10.3) mg/dL Magnesium (1.9-2.7) mg/dL Total Bilirubin (0.2-1.0) mg/dL AST (13-39) U/L ALT (7-52) U/L Alkaline Phosphatase (34-104) U/L Troponin I (<0.04) ng/mL C-Reactive Protein (< 5.00) mg/L Total Protein (6.4-8.9) g/dL Albumin (3.2-5.2) g/dL Globulin (2-4) g/dL Albumin/Globulin Ratio (1-3) TSH (0.34-5.60) mcIU/mL Urine Color Yellow Urine Appearance Cloudy Urine pH 6.0 (5-9) Ur Specific [place] 1.008 L (1.010-1.030) Urine Protein Negative (Negative) Urine Ketones Negative (Negative) Urine Blood Negative (Negative) Urine Nitrate Negative (Negative) Urine Bilirubin Negative (Negative) Urine Urobilinogen Negative (Negative) Ur Leukocyte Esterase 3+ H (Negative) Urine WBC (Auto) 2+(11-20/hpf) H (Absent) Urine RBC (Auto) 2+(6-10/hpf) H (Absent) Ur Squamous Epith Cells Present H (Absent) Urine Bacteria 1+ H (Absent) Hyaline Casts Present H (Absent) Urine Glucose Negative (Negative) Result Diagrams: 08/23/16 15:11 08/23/16 15:11 Lab Statement: Any lab studies that have been ordered have been reviewed, and results considered in the medical decision making process. - EKG 1 EKG Rhythm: Sinus Bradycardia Re-Evaluation - Re-Evaluation 1 Re-Evaluation Time: 18:12 Comment: Discussing results with pt. Pt is insistent that she be admitted. Course/Dx - Course Course Of Treatment: Ms. Brown presented C/o geneeralized weakness for several days getting gradually worse. She fell a couple days ago because of it. She was found to be dehydrated, a bit hypokalemic and to have a UTI. She was given fluids, K and IV antibiotics. She felt that she could not go home safely because of weakness (she lives alone) and the hospitalists were consulted. - Diagnoses Provider Diagnoses: UTI (urinary tract infection), Dehydration, Hypokalemia, Weakness - Physician Notifications Discussed Care Of Patient With: Jaimee Kim - hospitalist Time Discussed With Above Provider: 15:40 Instructed by Provider To: Admit As Inpatient Discharge - Discharge Plan Condition: Stable Disposition: HOME Prescriptions: Ciprofloxacin TAB* [Cipro Tab*] 500 mg PO BID #20 tab Patient Education Materials: Ciprofloxacin (By mouth), Urinary Tract Infection in Women (ED) Referrals: Justa Hoskins MD [Primary Care Provider] - 3 Days (Follow up in 2-3 days.) Additional Instructions: Follow up with Dr. Hoskins in 2-3 days. Please return to the ED if you experience new or worsening symptoms. Consult Consult: 1850: Consult with Dr. Samuel, hospitalist MD will see pt in ED. The documentation as recorded by the Bryan mayer SooYoung accurately reflects the service I personally performed and the decisions made by me, Carlos Lainez MD.
== END 2016-08-23 22:52 | disposition home or self-care (01) ==
LOC: ED 13:07
DX: N39.0 Urinary tract infection, site not specified (principal); E86.0 Dehydration; E87.6 Hypokalemia; R53.1 Weakness; Z87.891 Personal history of nicotine dependence; E78.00 Pure hypercholesterolemia, unspecified; I10 Essential (primary) hypertension; K21.9 Gastro-esophageal reflux disease without esophagitis; F32.9 Major depressive disorder, single episode, unspecified; Z79.4 Long term (current) use of insulin; G60.9 Hereditary and idiopathic neuropathy, unspecified; G89.4 Chronic pain syndrome; E55.9 Vitamin D deficiency, unspecified; Z79.84 Long term (current) use of oral hypoglycemic drugs
CPT/HCPCS: 36415; 80053; 81003; 81015; 83605; 83735; 84443; 84484; 85025; 85610; 86140; 87077; 87086; 93005; 99284; A9270-GY; J0744; J1170; J2405

== ENCOUNTER 2017-01-17 14:06 | Observation (INO) | payer MEDICARE, MEDICAID ==
[2017-01-17] MEDS ORDERED: Aspirin Low Dose CHEW TAB* 81 MG PO ONE (14:22)
[2017-01-17] MEDS ORDERED: SUMAtriptan TAB* 100 MG PO ONE (14:33)
[2017-01-17 14:51] LABS: Hematocrit 37 % (35-47); Hemoglobin 12.1 g/dl (12.0-16.0); Mean Corpuscular HGB Conc 33 g/dl (31-36); Mean Corpuscular Hemoglobin 29 pg (27-31); Mean Corpuscular Volume 90 fL (80-97); Mean Platelet Volume 8 um3 (7.4-10.4); Red Blood Count 4.12 10^6/ul (4.0-5.4); Red Cell Distribution Width 17 % (10.5-15); White Blood Count 7.2 10^3/ul (3.5-10.8)
--- NOTE | 2017-01-17 14:54 | RAD ---
Indication: Chest pain. Single frontal view of the chest performed at 1445 hours was reviewed. Comparison is made with previous exam dated July 06, 2016. No mediastinal shift is noted. Heart is of normal size and configuration. Lung campbell appear clear. IMPRESSION: NO ACTIVE CARDIOPULMONARY DISEASE IS NOTED.
[2017-01-17 15:06] LABS: Albumin 3.7 g/dL (3.2-5.2); BUN/Creatinine Ratio 17.4 (8-20); Calcium 9.2 mg/dL (8.6-10.3); EGFR African American 78.1 (>60); EGFR Non-African American 60.7 (>60); Globulin 2.5 g/dL (2-4); Potassium 3.3 mmol/L (3.5-5.0); Total Bilirubin 0.6 mg/dL (0.2-1.0); Total Protein 6.2 g/dL (6.4-8.9)
[2017-01-17] MEDS ORDERED: NS 0.9% 1000 ML* 1,000 ML IV ONE (15:12)
--- NOTE | 2017-01-17 15:27 | ED ---
Joya Starks Nilda, scribed for Alexandria Tracy MD on 01/17/17 at 1422 . HPI Chest Pain - HPI Summary HPI Summary: This patient is a 66 year old F BIBA to [facility] with a chief complaint of constant severe sharp left CP (radiates to left arm and jaw) that began at 1100 this morning. Initial pain rated 10/10 but is now an 8/10 in severity. Yesterday , pt saw Dr. Duncan for her chronic pain and started experiencing severe left arm pain that radiated to her jaw. She states this pain felt different from her baseline chronic pain. Symptoms aggravated and alleviated by nothing. Pt is allergic to aspirin. PMHx includes possible COPD, DM, HTN, Migraine, Heart mumur (resolved), and near AL when she ruptured her bowel. Pt states she has not had a stress test. Medications include atenolol and dilaudid. - History of Current Complaint Hx Obtained From: Patient Onset/Duration: Started Hours Ago Timing: Constant Initial Severity: Severe Current Severity: Severe Pain Intensity: 8 Pain Scale Used: 0-10 Numeric Chest Pain Location: Left Lateral Chest Pain Radiates: Yes Chest Pain Radiates To:: Shoulder - left, Jaw Character: Sharp/Stabbing Aggravating Factor(s): Nothing Alleviating Factor(s): Nothing Associated Signs and Symptoms: Positive: Other: - chest pain that radiates to left arm and jaw - Allergy/Home Medications Allergies/Adverse Reactions: Allergies Allergy/AdvReac Type Severity Reaction Status Date / Time Cortisone Allergy Severe Difficulty Verified 10/22/15 15:30 Breathing Methylprednisolone Allergy Severe Difficulty Verified 10/22/15 15:30 [From Medrol] Breathing Tizanidine [From Zanaflex] Allergy Intermediate lips and Verified 10/22/15 15:30 face swelling, Shortness of breath Ibuprofen [From Motrin] Allergy Mild Rash And Verified 08/23/16 23:03 Itching Itraconazole Allergy Mild Rash Verified 08/23/16 23:03 Lanolin Allergy Mild Rash Verified 08/23/16 23:03 Latex Allergy Mild SEVERE Verified 08/23/16 23:03 ITCHING Penicillins Allergy Mild Rash Verified 08/23/16 23:03 Propoxyphene Allergy Mild Rash Verified 08/23/16 23:03 [From Darvocet-N] Sulfasalazine Allergy Mild Rash Verified 08/23/16 23:03 Talc Allergy Mild Rash Verified 08/23/16 23:03 Sulindac [From Clinoril] Allergy Unknown Unknown Verified 08/23/16 23:03 Reaction Details Acetaminophen Allergy Unknown Verified 10/22/15 15:30 [From Darvocet-N] Reaction Details Adhesive Tape Allergy Unknown Verified 10/22/15 15:30 Reaction Details Alprazolam [From Xanax] Allergy Unknown Verified 10/22/15 15:30 Reaction Details Amitriptyline [From Elavil] Allergy Unknown Verified 10/22/15 15:30 Reaction Details Aspirin Allergy Unknown Verified 10/22/15 15:30 Reaction Details Cefaclor [From Ceclor] Allergy Unknown Verified 10/22/15 15:30 Reaction Details Chlorine Allergy Unknown Verified 10/22/15 15:30 Reaction Details CI Pigment Blue 63 Allergy Unknown Verified 10/22/15 15:30 [From Cymbalta] Reaction Details Clarithromycin [From Biaxin] Allergy Unknown Verified 10/22/15 15:30 Reaction Details Codeine Allergy Unknown Verified 10/22/15 15:30 Reaction Details Desipramine [From Norpramin] Allergy Unknown Verified 10/22/15 15:30 Reaction Details Diazepam [From Valium] Allergy Unknown Verified 10/22/15 15:30 Reaction Details Diphenhydramine Allergy Unknown Verified 10/22/15 15:30 [From Benadryl] Reaction Details Doxepin Allergy Unknown Verified 10/22/15 15:30 Reaction Details Doxycycline Allergy Unknown Verified 10/22/15 15:30 Reaction Details Duloxetine [From Cymbalta] Allergy Unknown Verified 10/22/15 15:30 Reaction Details Fentanyl Allergy Unknown Verified 10/22/15 15:30 Reaction Details Fluoxetine [From Prozac] Allergy Unknown Verified 10/22/15 15:30 Reaction Details Gabapentin [From Neurontin] Allergy Unknown Verified 10/22/15 15:30 Reaction Details Hydrocortisone Allergy Unknown Verified 10/22/15 15:30 [From Cortizone-5] Reaction Details Hydromorphone [From Dilaudid] Allergy Unknown Verified 10/22/15 15:30 Reaction Details Hydroxychloroquine Allergy Unknown Verified 10/22/15 15:30 Reaction Details Naproxen [From Naprosyn] Allergy Unknown Verified 10/22/15 15:30 Reaction Details Paroxetine [From Paxil] Allergy Unknown Verified 10/22/15 15:30 Reaction Details Piroxicam [From Feldene] Allergy Unknown Verified 10/22/15 15:30 Reaction Details Trazodone Allergy Unknown Verified 10/22/15 15:30 Reaction Details Methylparaben [From Opana ER] AdvReac Mild Palpitation Verified 08/23/16 23:03 s Milnacipran [From Savella] AdvReac Mild Swelling Verified 08/23/16 23:03 Mometasone [From Nasonex] AdvReac Mild Headache Verified 08/23/16 23:03 Morphine AdvReac Mild Hallucinati Verified 08/23/16 23:03 ons Naloxone [From Talwin Nx] AdvReac Mild Headache Verified 08/23/16 23:03 Ondansetron [From Zofran] AdvReac Mild Headache Verified 08/23/16 23:03 Oxycodone AdvReac Mild Palpitation Verified 08/23/16 23:03 s Oxymorphone [From Opana ER] AdvReac Mild Palpitation Verified 08/23/16 23:03 s Pentazocine [From Talwin Nx] AdvReac Mild Palpitation Verified 08/23/16 23:03 s Perfume [Fragrance] AdvReac Mild Coughing Verified 08/23/16 23:03 Tramadol [From Ultram] AdvReac Mild Muscle Ache Verified 08/23/16 23:03 Tricyclic Antidepressants AdvReac Mild See Comment Verified 08/23/16 23:03 ALL MELONS Allergy Severe Anaphylatic Uncoded 10/22/15 15:30 Shock APPLE AND GRAPE JUICE Allergy Severe Anaphylatic Uncoded 10/22/15 15:30 Shock BLACK PEPPER Allergy Intermediate HIVES, Uncoded 10/22/15 15:30 TROUBLE BREATHING, ITCHING, BAD STOMACH PAIN MILK Allergy Intermediate HIVES, Uncoded 08/23/16 23:03 STOMACH PAIN, TROUBLE BREATING RAW ONIONS Allergy Intermediate TROUBLE Uncoded 08/23/16 23:03 BREATHING, HIVES VINEGAR Allergy Intermediate TROUBLE Uncoded 08/23/16 23:03 BREATHING APPLESAUCE Allergy Mild Edema Uncoded 08/23/16 23:03 ENVRIONMENTAL Allergy Mild Sneezing Uncoded 08/23/16 23:03 PEPPERS Allergy Unknown Uncoded 10/22/15 15:30 Reaction Details BANDAIDS AdvReac Mild Blisters Uncoded 08/23/16 23:03 CIGARETTE SMOKE AdvReac Mild Airway Uncoded 08/23/16 23:03 Obstruction ICEBERG LETTUCE AdvReac Mild Stomach Uncoded 08/23/16 23:03 Cramps Home Medications: Home Medications Ascorbic Acid [Vitamin C Immune Health 500 mg] 1 waf PO DAILY 01/17/17 [History Confirmed 01/17/17] Atenolol TAB* [Tenormin TAB* 25 MG] 25 mg PO DAILY 01/17/17 [History Confirmed 01/17/17] Brimonidine Tartrate (Topical) [Mirvaso] 0.33 % TOPICAL BID 01/17/17 [History Confirmed 01/17/17] Cholecalciferol TAB* [Vitamin D TAB*] 4,000 units PO DAILY 01/17/17 [History Confirmed 01/17/17] Clobetasol Propionate [Temovate] 0.05 % TOPICAL BID PRN 01/17/17 [History Confirmed 01/17/17] Cyanocobalamin INJ * [Vitamin B12 INJ *] 1,000 mcg IM MONTHLY 01/17/17 [History Confirmed 01/17/17] Estradiol [Estrace] 1 mg PO DAILY 01/17/17 [History Confirmed 01/17/17] Insulin Aspart [Novolog Flexpen] 0 - 15 unit SUBCUT QID MDD 15 units 01/17/17 [ History Confirmed 01/17/17] Insulin GLARGINE(*) [Lantus(*)] 47 units SUBCUT BEDTIME 01/17/17 [History Confirmed 01/17/17] Ipratropium [place] (Nasal) [Ipratropium [place]] 0.06 % BOTH NARES QID PRN [History Confirmed 01/17/17] Iron Dextran W/ Folic Acid & V [Irofol] 10 ml PO BID 01/17/17 [History Confirmed 01/17/17] Metronidazole (Topical) [Metrogel] 1 % TOPICAL BID PRN 01/17/17 [History Confirmed 01/17/17] Milk Thistle (Silybum Marianum [Milk Thistle] 1,000 mg PO DAILY 01/17/17 [ History Confirmed 01/17/17] Kunia-3 Fatty Acids (Nf) [Fish Oil (NF)] 1,000 mg PO BID 01/17/17 [History Confirmed 01/17/17] Potassium Chlor TAB* [Klor Con ER TAB*] 10 meq PO BID 01/17/17 [History Confirmed 01/17/17] Potassium Chloride LIQUID* [Klor-Con LIQUID*] 20 meq PO DAILY 01/17/17 [History Confirmed 01/17/17] SUMAtriptan TAB* [Imitrex TAB*] 100 mg PO DAILY PRN MDD 200 mg 01/17/17 [ History Confirmed 01/17/17] oxyCODONE SR TAB(*) [Oxycontin 10 mg (*)] 10 mg PO BID 01/17/17 [History Confirmed 01/17/17] PMH/Surg Hx/FS Hx/Imm Hx Endocrine/Hematology History: Reports: Hx Diabetes - TYPE II- ON ORAL MEDICATION AND INSULIN FOR, Hx Anemia - MILD IN THE PAST Denies: Hx Systemic Lupus Erythematosus Cardiovascular History: Reports: Hx Hypercholesterolemia, Hx Hypertension - ON MEDICATION FOR, Other Cardiovascular Problems/Disorders - SUPERIOR VENA CAVA [id number] Denies: Hx Congestive Heart Failure - superior vena cava syndrome, Hx Pacemaker/ICD Respiratory History: Reports: Hx Asthma GI History: Reports: Hx Gastroesophageal Reflux Disease - ON MEDICATION FOR, Hx Hiatal Hernia, Other GI Disorders - HX DIVERTICULOSIS History: Denies: Hx Dialysis, Hx Renal Disease Musculoskeletal History: Reports: Hx Arthritis - OSTEO, Hx Osteoporosis, Hx Tendonitis - WRISTS AND ELBOWS, Other Musculoskeletal History - DEGEN DISC DISEASE; chronic pain Denies: Hx Rheumatoid Arthritis - myeloradicular neurapathy Sensory History: Reports: Hx Cataracts - BILAT, Hx Contacts or Glasses - READING GLASSES Denies: Hx Hearing Aid Opthamlomology History: Reports: Hx Cataracts - BILAT, Hx Contacts or Glasses - READING GLASSES Neurological History: Reports: Hx Headaches, Hx Migraine - 2-3 TIMES PER WEEK- TREATS WITH IMITREX, Other Neuro Impairments/Disorders - multiple sclerosis, FIBROMYALGIA, MYELORADICULAR NEUROPATHY Psychiatric History: Reports: Hx Depression - MILD Denies: Hx Panic Disorder - Cancer History Hx Chemotherapy: No - Surgical History Surgery Procedure, Year, and Place: [place]ste[place] [facility] [place] D[place]C 1999 [facility]. BOWEL RESECTION, COLOSTOMY 1993. COLOSTOMY WITH REVERSAL 1994 [facility] [place]. OVARIAN CYSTECTOMY 1996 [facility]. LAP CRISTIAN WITH INFUSAPORT REMOVAL 2013 [facility] [place]. APPY REMOVAL OF RIGHT OVARIAN CYST AND RESECTION 1968. T&A. DEVIATED SEPTUM REPAIR. SINUS SURGERY 2006 [facility] [place]. INFUSAPORT 2003. 2014- LEFT EYE CATARACT REMOVED Hx Anesthesia Reactions: No Infectious Disease History: Reports: Hx Hepatitis - "medical"- only while taking a medication-states no longer takes, name unkn - Family History Known Family History: Positive: Other - Breast CA; anasthesia reaction Negative: Cardiac Disease - Social History Lives: Alone Alcohol Use: None Hx Substance Use: No Substance Use Type: Reports: None Hx Tobacco Use: Yes Smoking Status (MU): Former Smoker Type: Cigarettes Amount Used/How Often: 4 PPD X 15 YEARS Length of Time of Smoking/Using Tobacco: 20 YRS Have You Smoked in the Last Year: No Review of Systems Positive: Chest Pain Positive: Other - pain in LUE and jaw; diffuse chronic muscle pain All Other Systems Reviewed And Are Negative: Yes Physical Exam - Summary Physical Exam Summary: General: Well appearing, no pain distress Skin: Warm, Skin Color Reflects Adequate Perfusion, Dry Eyes: EOMI, CHETAN ENT: Pharynx normal, TMs normal Neck: Supple, diffuse neck pain Respiratory: CTA, breath sounds present, no rhonchi, no wheezes, no rales Cardiovascular: RRR, no murmur, no rub, no gallop Abdomen: Soft, nontender, Non-distended, no guarding, no rebound Bowel: Present Musculoskeletal: THEODORE, No edema Neuro: Sensory/motor intact, A&Ox3, CN intact 2-12 Psych: Affect/mood appropriate Triage Information Reviewed: Yes Vital Signs On Initial Exam: Initial Vitals Temp Pulse Resp BP Pulse Ox 97.9 F 87 14 143/69 100 01/17/17 14:24 01/17/17 14:24 01/17/17 14:24 01/17/17 14:24 01/17/17 14:24 Vital Signs Reviewed: Yes Diagnostics - Vital Signs Vital Signs Temp Pulse Resp BP Pulse Ox 01/17/17 14:24 97.9 F 87 14 143/69 100 - Laboratory Lab Results: Lab Results 01/17/17 01/17/17 01/17/17 Range/Units 14:42 14:42 14:42 WBC 7.2 (3.5-10.8) 10^3/ul RBC 4.12 (4.0-5.4) 10^6/ul Hgb 12.1 (12.0-16.0) g/dl Hct 37 (35-47) % MCV 90 (80-97) fL MCH 29 (27-31) pg MCHC 33 (31-36) g/dl RDW 17 H (10.5-15) % Plt Count 216 (150-450) 10^3/ul MPV 8 (7.4-10.4) um3 Neut % (Auto) 40.2 (38-83) % Lymph % (Auto) 52.9 H (25-47) % Stafford % (Auto) 2.9 (1-9) % Eos % (Auto) 3.8 (0-6) % Baso % (Auto) 0.2 (0-2) % Absolute Neuts (auto) 2.9 (1.5-7.7) 10^3/ul Absolute Lymphs (auto) 3.8 (1.0-4.8) 10^3/ul Absolute Monos (auto) 0.2 (0-0.8) 10^3/ul Absolute Eos (auto) 0.3 (0-0.6) 10^3/ul Absolute Basos (auto) 0 (0-0.2) 10^3/ul Absolute Nucleated RBC 0 10^3/ul Nucleated RBC % 0 Sodium 136 (133-145) mmol/L Potassium 3.3 L (3.5-5.0) mmol/L Chloride 96 L (101-111) mmol/L Carbon Dioxide 31 (22-32) mmol/L Anion Gap 9 (2-11) mmol/L BUN 16 (6-24) mg/dL Creatinine 0.92 (0.51-0.95) mg/dL Est GFR ( Amer) 78.1 (>60) Est GFR (Non-Af Amer) 60.7 (>60) BUN/Creatinine Ratio 17.4 (8-20) Glucose 237 H (70-100) mg/dL Lactic Acid 3.3 H* (0.5-2.0) mmol/L Calcium 9.2 (8.6-10.3) mg/dL Total Bilirubin 0.60 (0.2-1.0) mg/dL AST 31 (13-39) U/L ALT 32 (7-52) U/L Alkaline Phosphatase 75 (34-104) U/L Troponin I 0.00 (<0.04) ng/mL Total Protein 6.2 L (6.4-8.9) g/dL Albumin 3.7 (3.2-5.2) g/dL Globulin 2.5 (2-4) g/dL Albumin/Globulin Ratio 1.5 (1-3) Result Diagrams: 01/17/17 14:42 01/17/17 14:42 Lab Statement: Any lab studies that have been ordered have been reviewed, and results considered in the medical decision making process. - Radiology CXR Radiology Interpretation Completed By: Radiologist - CXR reveals no active cardiopulmonary disease is noted. ED physician has reviewed this radiology report and agrees. - EKG 1446 Cardiac Rate: NL EKG Rhythm: Sinus Rhythm - [address] Segment: Normal EKG Interpretation: prolongued QT, no ST elevation, and unchanged from 08/23/16 Chest Pain Course/Dx - Course Assessment/Plan: Pending EKG and CXR. An EKG reveals NSR, 83 bpm, prolongued QT , no ST elevation, and unchanged from 08/23/16. CXR, per radiologist, reveals no active cardiopulmonary disease is noted. ED physician has reviewed this radiology report and agrees. pt accepted for admission by dr. Gomez, first lactic is 3.3 fluids ordered 2nd lactic ordered first trop is neg. [1429] Dr. Gomez (Hospitalist) accepts pt for admit. - Diagnoses Provider Diagnoses: Chest pain - Provider Notifications Discussed Care Of Patient With: Arden Gomez - Hospitalist Time Discussed With Above Provider: 14:28 Instructed by Provider To: Admit As Inpatient Discharge - Discharge Plan Condition: Stable Disposition: ADMITTED TO [facility] Referrals: Justa Hoskins MD [Primary Care Provider] - The documentation as recorded by the Joya mayer Nilda accurately reflects the service I personally performed and the decisions made by me, Alexandria Tracy MD.
[2017-01-17] MEDS ORDERED: HYDROmorphone TAB* 4 MG PO PRN (17:13)
[2017-01-17] MEDS ORDERED: Ondansetron TAB* 4 MG PO PRN (17:13)
[2017-01-17] MEDS ORDERED: Dextrose 50% Syringe 50 ML* 25 GM/50 ML SYRINGE IV PUSH PRN (17:19)
[2017-01-17] MEDS ORDERED: Clopidogrel TAB* 300 MG PO ONE (20:00)
[2017-01-17] MEDS ORDERED: Atorvastatin* 10 MG TAB PO SCH (21:00)
[2017-01-17] MEDS ORDERED: Bumetanide TAB* 2 MG PO SCH (21:00)
[2017-01-17] MEDS: Bumetanide IV* 0.25 MG/ML 4 ML VIAL SLOW PUSH SCH (21:13)
[2017-01-17] MEDS: BACLOFEN 20 MG PO SCH (21:13)
[2017-01-17] MEDS: IRON DEXTRAN PO SCH (21:15)
[2017-01-17] MEDS: [UNRECOGNIZED DRUG - OTHER] PO SCH (21:15)
[2017-01-17] MEDS: FOLIC ACID PO SCH (21:15)
[2017-01-17] MEDS: Insulin LISPRO* 1 UNITS UNIT SUBCUT SCH (21:21)
[2017-01-17] MEDS: oxyCODONE SR TAB(*) 10 MG TAB.SR PO SCH (21:36)
[2017-01-17] MEDS ORDERED: IPRATROPIUM BROMIDE 0.06% BOTH NARES PRN (21:45)
--- NOTE | 2017-01-17 22:33 | HP ---
HISTORY AND PHYSICAL: DATE OF ADMISSION: 01/17/17 ADMITTING PROVIDER: Arden Gomez MD PRIMARY CARE PHYSICIAN: Dr. Hoskins. CHIEF COMPLAINT: Left-sided arm, shoulder, jaw pain; substernal chest pain. PAST MEDICAL HISTORY: 1. Iron deficiency anemia. 2. Demyelinating disease of central nervous system. 3. Migraine with aura. 4. Idiopathic peripheral neuropathy. 5. Superior vena cava syndrome. 6. GERD. 7. Diverticular disease. 8. Dozens of medication allergies. 9. Inflammatory polyarthropathy. 10. Degenerative joint disease. 11. Osteoarthritis of the knee. 12. Fibromyalgia. 13. Osteoporosis. 14. Type 2 diabetes, insulin dependent. HISTORY OF PRESENT ILLNESS: Keila Brown is a 66-year-old female with complex medical history with PMH as above presenting with left arm, shoulder, jaw pain, progressive to left substernal chest pressure that was severe in onset. Symptoms began by 8 p.m. the night prior to admission with 10/10 left arm, shoulder, and jaw pain. The patient was able to go back to sleep. She called her primary care physician in the morning, which at that time around 11 a.m., she had developed severe 10/10 substernal chest pressure with a sensation of sitting on her chest. She was advised to present [place] [facility] [facility]. She said she has a history of "almost heart attack" 28 years ago at age 38. She was attempted to give an aspirin en route, but she says she has a severe ASPIRIN allergy based on allergy testing. She has tolerated in the past, although last time she took it, she thought she had some sensation of difficulty breathing and slight rash. So, she did not want to get any aspirin. On admission, she had an EKG with no acute ST elevation or depressions. No T- wave inversions or Q waves. She was in normal sinus rhythm. QTc was 495. She had a normal chest x-ray. Vital signs, hemodynamically stable, afebrile. She reports pains have improved to 7 to 8/10 in both her arm and chest, and then 10 minutes later when asked again, the chest pain was barely noticeable. The patient also reports that she has gained 20 pounds over the last 2 weeks despite being on her regular Bumex 2 mg b.i.d. She does get orthopneic, though had not realized it until I asked the question because she generally has GERD and sleeps at an angle anyway. She follows with multiple specialists for her fibromyalgia, neuropathic pains including Dr. Alberto, Dr. Briones. She has been evaluated by Dr. Ayoub in the past for iron deficiency anemia. She sees Dr. Duncan for chronic pain syndrome. She is currently taking Dilaudid 8 mg q.4 hours and OxyContin extended release 10 mg b.i.d. She reports a history of autoimmune disease creating whole body radicular neuropathic pains. She follows up with who has diagnosed her with these conditions. She has seen Dr. Negro in the past. She had a stress test 2 to 3 years ago in anticipation of possibly getting shoulder surgery, although she never had that operation. The patient is being admitted for ACS rule out. Initial troponin was 0.00. Lactic acid was elevated to 3.3, on repeat check was 1.7. MEDICATIONS: Include: 1. Dilaudid 8 mg tabs, 1 to 2 tab every 3 to 4 hours with maximum daily dose 7 tabs. 2. Dexilant 60 mg daily. 3. Vitamin B12 1000 mcg injected monthly. 4. Clobetasol 0.05% topical cream as needed for eczema. 5. Cholecalciferol 4000 international units daily. 6. Epiklor 20 mEq p.o. daily. 7. Estradiol 1 mg tablet daily. 8. Folic acid 1 mg tablet daily. 9. Humalog sliding scale. 10. Ipratropium bromide 2 nasal sprays 4 times a day. 11. Iron 10 mL b.i.d. (Floradix iron and herb liquid). 12. Lantus 47 units q.h.s. 13. Levocetirizine 5 mg daily. 14. Linzess 290 mcg daily. 15. Metformin 1000 mg daily. 16. Flagyl 1% topical gel. 17. Milk thistle. 18. Mirvaso 0.33% topical gel. 19. Many-3 fatty acid. 20. Zofran 4 mg disintegrating tablet 4 times a day p.r.n. 21. OxyContin 10 mg tablet b.i.d. 22. Sumatriptan 100 mg tablet p.r.n. for migraines. 23. Vandazole 0.75% vaginal gel. 24. Vitamin C 500 mg extended release daily. 25. Bumex 2 mg b.i.d. ALLERGIES: Quite extensive list including CORTISONE, METHYLPREDNISOLONE, TIZANIDINE, BUPROPION, ITRACONAZOLE, LANOLIN, LATEX, PENICILLIN, SULFASALAZINE, PROPOXYPHENE, CLINORIL, ACETAMINOPHEN, ADHESIVE TAPE, ALPRAZOLAM, AMITRIPTYLINE , ASPIRIN, CEFACLOR, KLORANE, CYMBALTA, CLARITHROMYCIN, CODEINE, DESIPRAMINE, DIAZEPAM, DIPHENHYDRAMINE, DOXEPIN, DOXYCYCLINE, DULOXETINE, FENTANYL, FLUOXETINE, GABAPENTIN, HYDROCORTISONE, HYDROMORPHONE, HYDROXYCHLOROQUINE, NAPROXEN, PAROXETINE, PIROXICAM, TRAZODONE, METHYLPARABEN, , PROMETHAZINE , MORPHINE, NALOXONE, ONDANSETRON, OXYCODONE, OXYMORPHONE, PENTAZOCINE, TRAMADOL , TRICYCLIC ANTIDEPRESSANTS, multiple environmental and food allergies. Clearly , some of these seem to be incorrect. She is currently taking hydromorphone. SOCIAL HISTORY: The patient is a former smoker, 4 packs a day for 15 years, quit 33 years ago. No current alcohol use. The patient requests that her son, Damaso Sin, is her medical proxy. She is a full code. Lives alone currently. FAMILY HISTORY: Is extensive with brother, depression; sister, depression; paternal grandmother, cancer of the colon; paternal grandfather, unknown; mother , liver disease, glaucoma, asthma, sleep apnea, myeloma, COPD, depression, hypertension, kidney disease, obesity, heart disease and rheumatoid arthritis; father, asthma and rheumatoid arthritis, and multiple other diseases in aunts and uncles. REVIEW OF SYSTEMS: Negative except as per HPI. PHYSICAL EXAMINATION GENERAL: No acute distress, lying in the [facility]. VITAL SIGNS: Blood pressure 143/69, satting 100% on room air, respiratory rate 14, pulse rate 87, temperature 97.9. HEENT: Normocephalic, atraumatic. Pupils equal, round, and reactive to light. Extraocular motions intact. Face with blanching erythema secondary to rosacea. NECK: No cervical lymphadenopathy. PULMONARY: Clear to auscultation bilaterally with no wheezing, rales, or rhonchi. CARDIOVASCULAR: Regular rate and rhythm. No murmurs, rubs, or gallops. ABDOMEN: Markedly distended, but soft. No tenderness. No rebound or guarding. No Cason's sign. EXTREMITIES: Warm, well perfused. Using compression stockings currently, but still with at least 1+ edema bilaterally. NEURO: Cranial nerves II through XII grossly intact. Moving all extremities. Fighter Pilot strength intact. Hip flexion intact bilaterally. Sensation intact. SKIN: No lesions. No rashes. LABORATORY EVALUATION: White count 7.2, hemoglobin 12.1, hematocrit 37, platelets 216. Sodium 136, potassium 3.3, chloride 96, carbon dioxide 31, BUN 16, creatinine 0.92. Lactic acid 3.3, improved to 1.7. Glucose 237. Troponin 0.00. LFTs within normal limits. IMAGING: Chest x-ray, no acute process. EKG, normal sinus rhythm, no ST change or elevations, prolonged QT 495, normal intervals. ASSESSMENT AND PLAN: The patient is a 66-year-old female with a complex past medical history including fibromyalgia, neuropathic pains thought to be ? autoimmune related, radiculopathies, chronic pain med requirements, former smoker, depression, rosacea, presenting with acute left arm, shoulder, jaw pain that progressed to chest pain. She is being admitted for ACS rule out. Continue troponins. Unfortunately, she states she has a severe ASPIRIN allergy. No clear use of Plavix in the past. We will give her 1 dose here today. Consider heparin drip if chest pain persists. It is now barely noticeable currently. We will put her n.p.o. midnight and consider stress test in the morning. For her chronic pains, we will continue her Dilaudid 8 mg q.4 hours p.r.n., oxycodone 10 mg extended release b.i.d. We will hold her sumatriptan in the setting of possible ischemic disease. For diabetes, we will put her on sliding scale insulin q.a.c. and q.h.s. Hold her metformin 1000 mg daily. Consider having her Lantus of 47 units home dose. Continue her Dexilant , her Lipitor 10 mg daily. We will get her lipid panel and an A1c. She is being admitted to observation status to Medicine on telemetry. Medical proxy is her son, Damaso Sin. Lactic acidosis has resolved, unclear etiology. For her 20 pound weight gain and edema, we will get an echocardiogram and continue her Bumex 2 mg p.o. b.i.d. with consideration for increasing that. Strict I's and O's, daily weights. We added BMP to previous labs. [id number]/[facility] #: [id number] [facility]
[2017-01-17] MEDS: Potassium Chlor TAB* 10 MEQ TAB.ER PO SCH (23:21)
[2017-01-18] MEDS: HYDROMORPHONE 8 MG PO PRN ×3 (00:40→09:28)
[2017-01-18] MEDS: Bumetanide IV* 0.25 MG/ML 4 ML VIAL SLOW PUSH SCH (04:55)
[2017-01-18 07:01] LABS: HDL Cholesterol 43.7 mg/dL
[2017-01-18 08:46] VITALS: BP 124/70
[2017-01-18] MEDS ORDERED: AZELASTINE 0.1% BOTH NARES SCH (09:00)
[2017-01-18] MEDS ORDERED: LINACLOTIDE 145 MCG PO SCH (09:00)
[2017-01-18] MEDS ORDERED: DEXLANSOPRAZOLE 60 MG PO SCH (09:00)
[2017-01-18] MEDS ORDERED: Cetirizine* 10 MG TAB PO SCH (09:00)
[2017-01-18] MEDS ORDERED: Potassium Chloride LIQUID* 20 MEQ PACKET PO SCH (09:00)
[2017-01-18] MEDS ORDERED: Atenolol TAB* 25 MG PO SCH (09:00)
[2017-01-18] MEDS ORDERED: Folic Acid TAB* 1 MG PO SCH (09:00)
[2017-01-18] MEDS: Insulin LISPRO* 1 UNITS UNIT SUBCUT SCH ×2 (09:06→12:22)
[2017-01-18] MEDS: oxyCODONE SR TAB(*) 10 MG TAB.SR PO SCH (09:06)
[2017-01-18] MEDS: Potassium Chlor TAB* 10 MEQ TAB.ER PO SCH (09:07)
[2017-01-18] MEDS: BACLOFEN 20 MG PO SCH ×2 (09:08→12:39)
[2017-01-18] MEDS: FOLIC ACID PO SCH (09:30)
[2017-01-18] MEDS: IRON DEXTRAN PO SCH (09:30)
[2017-01-18] MEDS: [UNRECOGNIZED DRUG - OTHER] PO SCH (09:30)
[2017-01-18] MEDS ORDERED: Bumetanide IV* 0.25 MG/ML 4 ML VIAL SLOW PUSH SCH (13:00)
[2017-01-18] MEDS ORDERED: HYDROMORPHONE 8 MG PO ONE (13:00)
[2017-01-18] MEDS ORDERED: Regadenoson* 0.4 MG/5 ML SYRINGE ONE (13:27)
--- NOTE | 2017-01-18 14:25 | DCNOTE ---
Patient seen this morning and again in the afternoon. She has multiple complaints including pain all over, fluid retention, says she gained 20 lbs in two weeks. Says she drinks a lot because she thought when you have DM that helps keep the blood sugar low. Had to talk to her into staying for the 2nd part of the stress test which she agreed to until she got down there and then refused. Now asking to leave. On exam, RRR, s1 and s2 present, no m/g/r, lungs CTA B/L, pitting edema to knees B/L Will not make patient leave AMA as trops have been negative and my concern for ischemia is low. Can schedule outpatient stress test and echo. Instructed the patient to monitor her fluid intake closely, stay under 2L/day and continue her current Bumex dose and monitor her weights. Told her to contact PCP on Sunday with results.
--- NOTE | 2017-01-19 03:05 | DS ---
CC: Dr. Justa Hoskins * DISCHARGE SUMMARY: DATE OF ADMISSION: 01/17/17 DATE OF DISCHARGE: 01/18/17 PRIMARY CARE PHYSICIAN: Dr. Justa Hoskins. PRINCIPAL DISCHARGE DIAGNOSES: 1. Chest pain. 2. Fluid retention. SECONDARY DIAGNOSES: 1. Iron deficiency anemia. 2. Demyelinating disease of central nervous system. 3. Migraine with aura. 4. Idiopathic peripheral neuropathy. 5. Superior vena cava syndrome. 6. Inflammatory polyarthropathy. 7. Chronic pain. 8. Osteoporosis. 9. Type 2 diabetes. DISCHARGE MEDICATION REGIMEN: 1. Dilaudid 8 mg by mouth every fours hours as needed for pain. 2. Sumatriptan 100 mg by mouth daily as needed for migraine. 3. Potassium chloride 10 mEq by mouth 2 times daily. 4. OxyContin 10 mg by mouth 2 times daily. 5. Potassium chloride 20 mEq by mouth daily. 6. Zofran 4 mg sublingual 4 times daily as needed for nausea. 7. [place]-3 fatty acids 1000 mg by mouth 2 times daily. 8. Insulin Aspart 0 to 15 units subcutaneously 4 times daily per sliding scale. 9. Brimonidine titrate 0.33% topical 2 times daily. 10. Milk thistle 1000 mg by mouth daily. 11. Metronidazole 1% topical 2 times daily as needed for itching. 12. Metformin 1000 mg by mouth 2 times daily. 13. Linzess 290 mcg by mouth daily. 14. Xyzal 5 mg by mouth daily. 15. Lantus 47 units subcutaneously at bedtime. 16. Iron dextran with folic acid 10 mL by mouth 2 times daily. 17. Ipratropium bromide 0.06% both nares 4 times daily as needed for congestion. 18. Lispro sliding scale daily. 19. Folic acid 1 mg by mouth daily. 20. Estradiol 1 mg by mouth daily. 21. Epiklor 20 mEq by mouth daily. 22. Dexilant 60 mg by mouth daily. 23. Vitamin B12 at 1000 mcg IM monthly. 24. Temovate 0.05% topical 2 times daily as needed for itching. 25. Vitamin D4 at 1000 units by mouth daily. 26. Bumex 2 mg by mouth 2 times daily. 27. Baclofen 20 mg by mouth 4 times daily. 28. Astepro 2 sprays in both nares 2 times daily. 29. Atorvastatin 10 mg by mouth at bedtime. 30. Atenolol 25 mg by mouth daily. 31. Vitamin C 500 mg by mouth daily. 32. Alpha-Lipoic acid 100 mg by mouth 2 times daily. STUDIES DONE DURING HOSPITALIZATION: Chest x-ray, impression: No active cardiopulmonary disease noted. HISTORY OF PRESENT ILLNESS AND HOSPITAL SUMMARY: Please see the full history and physical by Dr. Gomez for full details. Briefly, Ms. Brown is a 66-year- old female with a very complicated medical history and numerous drug allergies who presented to the hospital with chest pain. The patient apparently called her PCP, the day after the chest pain started and she was instructed to come to the hospital for further evaluation. The patient had no concerning EKG changes. She refused aspirin because she states she has an allergy to it. The patient had troponins trended during the hospitalization, they remained negative. Her chest pain resolved. Throughout the hospitalization, the patient had numerous complaints and was asking for additional doses of Dilaudid. She had no arrhythmias on telemetry and she was ordered to undergo a nuclear cardiac stress test. She underwent the first portion and then became concerned that she needed to get home because she had a supervised visiting nurse visit. search engine optimization manager was able to alleviate the patient's concerns and rescheduled the visit. However, despite this when the patient went down for her second portion of her stress test she refused and then asked to leave. She was ordered to have an echocardiogram done because she was complaining of some fluid retention, although a chest x-ray was negative and her B-natriuretic peptide was normal. She states that she had been drinking lot of fluid because she thought that would help to keep her blood sugars low. I instructed her to limit her fluid intake to 2000 mL per day and for now to continue her current Bumex dosing and to check her weights daily. I instructed to call her PCP after the weekend with some data to see if she needs her diuretic adjusted. The patient was ordered for an outpatient stress test to have if she is agreeable to this. I think this would be beneficial, although I think that this current chest pain episode was likely noncardiac. I do not feel it was necessary to have the patient sign out against medical advice. She was instructed to follow up with her PCP as an outpatient TIME SPENT: Total time spent on this discharge 45 minutes. This is a summary of hospitalization; please see full medical record for further details. [id number]/[facility] #: [id number] TIKI
[2017-02-15] MEDS ORDERED: Cyanocobalamin INJ * 1,000 MCG/ML VIAL 1 ML VIAL IM SCH (09:00)
== END 2017-01-18 16:45 | disposition home or self-care (01) ==
LOC: ED 14:06 → MEDTELE 16:16
PROVIDERS: ADMIT Internal Medicine; ATTEND Hospitalist
DX: R07.9 Chest pain, unspecified (principal); R60.9 Edema, unspecified; D50.9 Iron deficiency anemia, unspecified; G37.9 Demyelinating disease of central nervous system, unspecified; G43.909 Migraine, unspecified, not intractable, without status migrainosus; G60.9 Hereditary and idiopathic neuropathy, unspecified; I87.1 Compression of vein; M15.9 Polyosteoarthritis, unspecified; M81.0 Age-related osteoporosis without current pathological fracture; E11.9 Type 2 diabetes mellitus without complications; Z79.4 Long term (current) use of insulin; Z79.899 Other long term (current) drug therapy; Z88.8 Allergy status to other drugs, medicaments and biological substances; Z88.2 Allergy status to sulfonamides; Z88.1 Allergy status to other antibiotic agents; Z88.5 Allergy status to narcotic agent; K57.90 Diverticulosis of intestine, part unspecified, without perforation or abscess without bleeding; K21.9 Gastro-esophageal reflux disease without esophagitis; Z87.891 Personal history of nicotine dependence
CPT/HCPCS: 36415; 71010; 80053; 80061; 83036; 83605; 83880; 84484; 85025; 93005; 96360; 99284; A9270-GY; G0378; J2785

== ENCOUNTER 2017-05-10 21:06 | Inpatient (IN) | payer MEDICARE, MEDICAID ==
[2017-05-10] MEDS ORDERED: NS 0.9% 1000 ML* 1,000 ML IV ONE ×2 (22:07→23:46)
[2017-05-10] MEDS ORDERED: Ondansetron INJ* 2 MG/ML VIAL IV ONE (22:33)
[2017-05-10] MEDS ORDERED: methylPREDNISolone 125 MG* 2 ML VIAL IV ONE (22:33)
[2017-05-10] MEDS ORDERED: HYDROmorphone INJ* 1 MG/ML CARPUJECT SYRINGE IV SLOW PU ONE (22:33)
[2017-05-10 23:13] LABS: EGFR Non-African American 35.1 (>60)
[2017-05-10 23:17] LABS: ABS Basophils 0 10^3/ul (0-0.2); ABS Eosinophils 0 10^3/ul (0-0.6); ABS Lymphocytes 2.1 10^3/ul (1.0-4.8); ABS Monocytes 1.9 10^3/ul (0-0.8); ABS Neutrophils 12.2 10^3/ul (1.5-7.7); ABS Nucleated RBC 0 10^3/ul; Eosinophil % 0 % (0-6); Hematocrit 42 % (35-47); Hemoglobin 13.3 g/dl (12.0-16.0); Mean Corpuscular HGB Conc 31 g/dl (31-36); Mean Corpuscular Hemoglobin 28 pg (27-31); Mean Corpuscular Volume 90 fL (80-97); Mean Platelet Volume 8.6 um3 (7.4-10.4); Nucleated Red Blood Cells % 0; Platelet Count 188 10^3/ul (150-450); Red Cell Distribution Width 19 % (10.5-15); White Blood Count 16.1 10^3/ul (3.5-10.8)
[2017-05-10 23:57] LABS: Urine Appearance Clear; Urine Blood 1+ (Negative); Urine Color Straw; Urine Ketones Negative (Negative); Urine Protein Negative (Negative); Urine Specific Gravity 1.023 (1.010-1.030); Urine Urobilinogen Negative (Negative)
[2017-05-11] MEDS ORDERED: NS 0.9% 1000 ML* 2,000 ML IV ONE (00:53)
[2017-05-11] MEDS ORDERED: Docusate CAP* 100 MG PO PRN (01:09)
[2017-05-11] MEDS ORDERED: Senna TAB PO PRN (01:09)
[2017-05-11] MEDS ORDERED: Acetaminophen TAB* 325 MG PO PRN (01:09)
[2017-05-11] MEDS ORDERED: Al Hydrox/Mg Hydrox/Simet LIQ* 30 ML UDC PO PRN (01:09)
[2017-05-11] MEDS ORDERED: Ondansetron INJ* 2 MG/ML VIAL IV PRN (01:09)
[2017-05-11] MEDS ORDERED: PROCHLORPERAZINE INJ 5 MG/ML 2 ML VIAL IV PRN (01:22)
[2017-05-11] MEDS ORDERED: Insulin REGULAR(*) 1 UNITS UNIT IV PUSH ONE (01:28)
[2017-05-11 02:16] LABS: EGFR Non-African American 45.6 (>60)
[2017-05-11] MEDS: Insulin REGULAR IVPB 100 UNITS/100 ML UNIT IVPB ONE ×2 (03:33→10:10)
[2017-05-11] MEDS ORDERED: NS 0.9% 1000 ML* 1,000 ML IV SCH (04:30)
--- NOTE | 2017-05-11 04:36 | HP ---
CC: Anila Saul MD * HISTORY AND PHYSICAL: DATE OF ADMISSION: 05/11/17 TIME OF EVALUATION: 0100. PRIMARY CARE PHYSICIAN: Anila Saul MD CHIEF COMPLAINT: Weakness, nausea, vomiting. HISTORY OF PRESENT ILLNESS: This is a 66-year-old female with multiple comorbidities including type 2 diabetes, chronic pain and inflammatory polyarthropathy, who was brought to the emergency room via EMS after having intractable nausea, vomiting, and weakness. The history is poor as the patient continues to fall asleep and quite somnolent. Her friend is there and states that she found her on the ground in the bathroom very out of it. The patient states she began vomiting around noon yesterday. Has not been checking her sugars because she has not been feeling well for the past several days. Has not been taking her insulin because she also has not been feeling well for the past several days. The friend found her and called the EMS for further evaluation. The patient states she always has pain all over her. Her friend states she always rates the pain a 9-1/2. She always states she always had abdominal discomfort, which she is complaining of now as well. Otherwise, review of systems limited due to the patient's somnolence. In the emergency room , the patient had labs, imaging. She was found to have hyperosmolar hyperglycemic state. She was given IV fluids. She was given Solu- Medrol 125 mg, 1 mg Dilaudid, and was referred to the hospitalist service for further evaluation. PAST MEDICAL HISTORY: 1. Iron deficiency anemia. 2. History of demyelinating disease of central nervous system. 3. Migraine with aura. 4. Idiopathic peripheral neuropathy. 5. SVC syndrome. 6. GERD. 7. History of diverticular disease. 8. Multiple medication allergies. 9. Inflammatory polyarthropathy. 10. Degenerative joint disease. 11. Osteoarthritis of the knees. 12. Fibromyalgia. 13. Osteoporosis. 14. Type 2 diabetes, insulin dependent. 15. Chronic pain syndrome. MEDICATIONS: 1. Alpha lipoic acid 200 mg p.o. b.i.d. 2. Atenolol 12.5 mg p.o. daily. 3. Atorvastatin 10 mg p.o. daily. 4. Azelastine 2 sprays into each nostril b.i.d. 5. Baclofen 20 mg 4 times a day. 6. Bumex 2 mg b.i.d. 7. Dexilant DR 60 mg 1 time a day. 8. Dilaudid 8 mg every 3 hours as needed, maximum 7 times a day. 9. Epiklor 20 mEq daily. 10. Estradiol 1 mg in the morning. 11. Floradix Iron and Herb liquid 10 mL 2 times a day. 12. Humalog insulin sliding scale. 13. Imitrex 100 mg as needed. 14. Ipratropium 1 spray each nostril 4 times a day. 15. Lantus 47 units at bedtime. 16. Levocetirizine 5 mg daily. 17. Linzess 290 mcg daily. 18. Metformin 1000 mg p.o. b.i.d. 19. Methotrexate 0.6 mL under the skin 1 time a week. 20. Zofran 4 mg every 4 hours as needed for nausea. 21. OxyContin 10 mg 2 times a day. 22. Topiramate 50 mg b.i.d. 23. Vitamin D3 one softgel 4000 units daily. 24. Vitamin C 500 mg daily. 25. The patient is on several creams including clobetasol, metronidazole, Mirvaso, triple paste ointment. 26. Fish oil, omega-3 two softgels b.i.d. 27. Citrate of magnesia 6 mL b.i.d. 28. [place] vitamin C 2 times a day. 29. Folic acid daily. 30. Magnesium 6 g 2 times a day. 31. Maalox as needed. 32. Mylanta as needed. 33. Tums as needed. ALLERGIES: Multiple: ASPIRIN, BENADRYL, BIAXIN, CECLOR, CLARITHROMYCIN, CLINORIL, CODEINE, CORTISONE, CYMBALTA, DARVOCET, DARVON, DILAUDID, DOXEPIN, DOXYCYCLINE, ELAVIL, EXALGO, FELDENE, FENTANYL, HYDROXYCHLOROQUINE, ITRACONAZOLE , LANOLIN, MEDROL, MORPHINE, MOTRIN, NAPROSYN, NASACORT, NASONEX, NEURONTIN, NORPRAMIN, NUCYNTA, OPANA, OXYCODONE, MUPIROCIN, PAXIL, PENICILLIN, PERCOCET, PERCODAN, PROZAC, SAVELLA, SULFASALAZINE, TALWIN, TRAZODONE, TRICYCLICS, ULTRAM , VALIUM, XANAX, PILLS. FAMILY HISTORY: Her brother with depression, sister with depression. Otherwise reviewed and noncontributory. SOCIAL HISTORY: The patient lives at home alone. She seems to have a lot of friends involved in her life, who take her to her appointments. She ambulates with a cane. Sometimes when she goes out she uses a wheelchair. She quit smoking 33 years ago. She seems to be changing healthcare proxy. She would like it to be her friend, Deb, but this should be confirmed in the morning. Deb is at the bedside currently. Informant is Ms. Deb Lai. No alcohol use. Full code. REVIEW OF SYSTEMS: Limited due to the patient's somnolence. PHYSICAL EXAMINATION GENERAL: Somnolence. She does wake to voice. VITAL SIGNS: Temp 97.1, pulse rate 78, respiratory rate 26, oxygen saturation 94% on room air, blood pressure 117/86. HEENT: Head: Normocephalic. Pupils equal and reactive, anicteric. Mild conjunctival injection. Oropharynx: Mucous membranes dry. Lips are dry. NECK: Supple. No lymphadenopathy. RESPIRATORY: Diminished breath sounds. No wheezing, rhonchi, or rales. CARDIAC: Regular rate and rhythm. Soft systolic murmur heard throughout. ABDOMEN: Positive bowel sounds. Morbidly obese, soft, nondistended, nontender. EXTREMITIES: The patient with Rock wraps on her upper wrists and hands. No clubbing, cyanosis, or edema. +1 DPs. NEUROLOGIC: She is alert and oriented x3. No gross focal neurologic deficits. Generalized weakness. DIAGNOSTIC STUDIES/LAB DATA: White count 16.1, hemoglobin 13.3, hematocrit 42, platelets 188. Blood gas pH 7.3. Sodium 128, potassium 3.6, chloride 86, bicarb 29, BUN 17, creatinine 1.48, glucose 1116. Alk phos 148, lipase 325. UA shows negative ketones, +3 glucose, 1+ blood. Radiographic data: Chest x-ray, wet read, no significant findings. Head CT: Left high parietal subarachnoid cyst again noted without appreciable change in size. No hemorrhage, no solid mass, no obvious infarct. Osseous structure intact. ASSESSMENT AND PLAN: 1. This is a 66-year-old female with multiple comorbidities including type 2 diabetes, on insulin, and immunosuppressed who presents to the emergency room with nausea, vomiting, weakness, found to be in hyperosmolar hyperglycemic state , mild. The patient does appear quite somnolent. Plan: We will admit her to the ICU. Repeat a BMP now. Start her on insulin drip. Monitor glucose. Continue IV fluids with potassium replacement. The etiology behind her hyperosmolar non-ketotic hyperglycemia is unclear. It sounds like she was feeling unwell when she stopped taking her insulin. It just could be secondary to noncompliance. It is possible that she had developed gastroenteritis. She does have an elevated white count. There are no focal findings on exam. Her chest x- ray and the urine look unremarkable. We will obtain blood cultures in the setting of her immunosuppression. It is also possible she may have some mild pancreatitis that have triggered her hyperosmolar non-ketotic hyperglycemia. We will repeat her lipase in the morning as well and we will sign out to Dr. Saul's service. 2. Acute on chronic kidney injury likely prerenal azotemia in the setting of profound volume depletion. CHRONIC MEDICAL PROBLEMS: 1. We will resume her medications as prescribed with the exception of her Bumex in the setting of her dehydration. 2. FEN. We will keep her n.p.o. until she is more alert and her HONK resolves. 3. DVT prophylaxis. The patient scores high risk. We will place her on heparin subcu t.i.d. 4. Code status. Full code. PATIENT TIME: Greater than 60 minutes was spent doing history and physical, more than half the time spent in direct patient contact. [id number]/[facility] #: [id number] TIKI
[2017-05-11] MEDS ORDERED: Dextrose 50% Syringe 50 ML* 25 GM/50 ML SYRINGE IV PUSH PRN ×2 (04:39→04:40)
[2017-05-11] MEDS ORDERED: KCL 20 MEQ/100 ML IVPREMIX* 20 MEQ/100 ML BAG IV SCH (05:00)
[2017-05-11] MEDS ORDERED: Potassium Chloride IV* 40 MEQ in NS 0.9% 250 ML* 250 ML IVPB ONE (05:00)
[2017-05-11 05:13] LABS: ABS Basophils 0 10^3/ul (0-0.2); ABS Eosinophils 0 10^3/ul (0-0.6); ABS Lymphocytes 1.6 10^3/ul (1.0-4.8); ABS Monocytes 0.3 10^3/ul (0-0.8); ABS Neutrophils 11.8 10^3/ul (1.5-7.7); ABS Nucleated RBC 0 10^3/ul; Eosinophil % 0 % (0-6); Hematocrit 36 % (35-47); Hemoglobin 11.9 g/dl (12.0-16.0); Lymphocyte % 11.9 % (25-47); Mean Corpuscular HGB Conc 33 g/dl (31-36); Mean Corpuscular Hemoglobin 28 pg (27-31); Mean Corpuscular Volume 86 fL (80-97); Nucleated Red Blood Cells % 0; Platelet Count 165 10^3/ul (150-450); Red Blood Count 4.19 10^6/ul (4.0-5.4); Red Cell Distribution Width 19 % (10.5-15); White Blood Count 13.8 10^3/ul (3.5-10.8)
[2017-05-11] MEDS ORDERED: HYDROmorphone TAB* 4 MG PO PRN ×2 (05:17→06:16)
[2017-05-11] MEDS: Heparin VIAL(*) 5000 UNITS/ML VIAL (FIVE THOUSAND) SUBCUT SCH ×3 (05:58→23:46)
[2017-05-11] MEDS: Insulin GLARGINE(*) 1 UNITS UNIT SUBCUT SCH (05:58)
[2017-05-11] MEDS ORDERED: SUMAtriptan TAB* 100 MG PO PRN (06:12)
[2017-05-11] MEDS: oxyCODONE SR TAB(*) 10 MG TAB.SR PO SCH ×2 (06:38→17:33)
--- NOTE | 2017-05-11 07:32 | RAD ---
INDICATION: Chest pain. COMPARISON: Comparison is made with a prior study from January 17, 2017. TECHNIQUE: A portable view of the chest was obtained. FINDINGS: Cardiac and mediastinal contours appear to be within normal limits. There is elevation of the right hemidiaphragm which is unchanged. The lungs are underinflated and clear. No pleural effusion is seen. IMPRESSION: NO EVIDENCE FOR ACUTE FINDING.
[2017-05-11] MEDS: Insulin LISPRO* 1 UNITS UNIT SUBCUT SCH ×6 (07:46→17:05)
--- NOTE | 2017-05-11 07:55 | RAD ---
INDICATION: Headache and weakness. COMPARISON: Comparison is made with a prior CT brain from February 26, 2005. TECHNIQUE: Contiguous axial sections of the brain were obtained from the skull base to the vertex without contrast. FINDINGS: The ventricles and cisterns appear to be within normal limits. There is an arachnoid cyst present adjacent to the posterior superior left parietal lobe measuring 5.0 x 2.2 cm in size which is unchanged significantly. No other focal abnormality or significant mass effect is seen. There is no evidence for hemorrhage. No significant focal osseous abnormality is seen. The visualized portion of the paranasal sinuses and mastoid air cells appear clear. IMPRESSION: NO EVIDENCE FOR ACUTE INTRACRANIAL ABNORMALITY.
[2017-05-11] MEDS: Atenolol TAB* 25 MG PO SCH (07:57)
[2017-05-11] MEDS: Cetirizine* 10 MG TAB PO SCH (07:57)
[2017-05-11] MEDS: Cholecalciferol TAB* 1000 UNITS PO SCH (07:57)
[2017-05-11] MEDS: Folic Acid TAB* 1 MG PO SCH (07:59)
[2017-05-11] MEDS ORDERED: Linaclotide (NF) 145 MCG CAP PO SCH (09:00)
[2017-05-11] MEDS: Azelastine 0.15% NASAL(NF) 30 ML BTL BOTH NARES SCH ×2 (09:02→23:29)
[2017-05-11] MEDS: DEXLANSOPRAZOLE 60 MG PO SCH (09:02)
[2017-05-11] MEDS: Topiramate TAB(*) 25 MG PO SCH ×2 (09:27→21:11)
[2017-05-11] MEDS: Baclofen TAB* 20 MG PO SCH ×4 (09:27→21:10)
[2017-05-11] MEDS ORDERED: Iodixanol* (CONTRAST) 320 MG/ML 100 ML SDV IV ONE (10:46)
[2017-05-11] MEDS ORDERED: NS 0.9% w/ 20 Meq KCL 1000 ML* 1,000 ML IV ONE (11:00)
[2017-05-11] MEDS: HYDROmorphone INJ* 2 MG/ML CARPUJECT SYRINGE IV PRN ×3 (11:36→21:11)
--- NOTE | 2017-05-11 11:51 | RAD ---
INDICATION: Nausea, vomiting, abdominal tenderness. Post appendectomy, cholecystectomy, ovarian cystectomy, and bowel resection with colostomy and subsequent reversal. COMPARISON: January 29, 2017 abdominal ultrasound. October 02, 2016 CT. TECHNIQUE: Multidetector CT images were obtained from the lung bases to the ischial tuberosities with 96 mL Visipaque 320 IV and oral contrast. Multiplanar reformation. REPORT: Images through the inferior thorax are remarkable for mild bilateral dependent subsegmental atelectasis. 20.8 cm cephalocaudal liver is severely decreased in density consistent with hepatosteatosis with subcapsular and gallbladder fossa level sparing. No suspicious focal hepatic lesions evident. Post cholecystectomy. Negative for biliary dilatation. Mildly atrophic pancreas without suspicious finding. Unremarkable spleen. Bilateral mesenteric to normally opacified portal vein measures 1.6 cm diameter. Patent splenic vein and superior mesenteric vein. Systemic anterior abdominal wall shunts extending to the great saphenous veins adjacent to the saphenous femoral junctions. Mild perienteric edema present at the level of the first and second segments of the duodenum. No visualized neural thickening of the duodenum. Unremarkable jejunal and ileal small bowel loops. Post appendectomy. Unremarkable sigmoid colon bowel anastomosis. Negative for ascites or free air. Small fat-containing supraumbilical midline hernia containing lesser omentum fat and blood vessels without suggestion of inflammatory change. Normal adrenal glands. Symmetric mildly delayed nephrograms and pyelograms. Subcentimeter LEFT renal cortical lesions most consistent with benign cysts however too small to accurately characterize. No suspicious renal lesions or hydronephrosis. Unremarkable nondilated ureters and distended urinary bladder. Post hysterectomy. Unremarkable adnexal regions. Negative for retroperitoneal lymphadenopathy. Negative for aortoiliac aneurysm. Mild atherosclerotic plaque. Full physiologic distention of the IVC consistent with high volume state. IMPRESSION: 1. Mild inflammatory change around the first and second segments of the duodenum which may reflect presence of duodenitis. Negative for perienteric abscess or free air. 2. Hepatomegaly and hepatosteatosis with evidence for portal hypertension based on portosystemic shunts. 3. Negative for ascites. 4. Negative for splenomegaly. 5. Mildly delayed bilateral nephrograms and pyelograms. Correlate for potential early acute renal failure. 6. High volume state based on magnitude of distention of the inferior vena cava.
[2017-05-11 11:56] LABS: Hematocrit 34 % (35-47); Hemoglobin 11.1 g/dl (12.0-16.0); Mean Corpuscular HGB Conc 32 g/dl (31-36); Mean Corpuscular Hemoglobin 28 pg (27-31); Mean Corpuscular Volume 86 fL (80-97); Mean Platelet Volume 7.6 um3 (7.4-10.4); Platelet Count 160 10^3/ul (150-450); Red Blood Count 3.99 10^6/ul (4.0-5.4); Red Cell Distribution Width 19 % (10.5-15); White Blood Count 16.1 10^3/ul (3.5-10.8)
[2017-05-11 12:22] LABS: EGFR Non-African American 63.1 (>60)
--- NOTE | 2017-05-11 17:15 | ED ---
Felton Starks Stephanie, scribed for Talha Correa MD on 05/10/17 at 2234 . HPI Diabetic - HPI Summary HPI Summary: The pt is a 66 y/o F presenting to the ED with c/o weakness that began earlier today. Symptoms include V/D and PARKER. She denies nausea. She states a hx of abd pain and an autoimmune disorder. The pt is accompanied by a friend. The pt states she usually ambulates with a cane but today she had to use a wheelchair due to weakness. Pt states she had >10 episodes of diarrhea over the course of the day. Pt states she has been unable to take any of her medications due to weakness and diarrhea. Pt denies any headache or change vision. - History Of Current Complaint Chief Complaint: EDDiabeticProb Time Seen by Provider: 05/10/17 22:01 Hx Obtained From: Patient Onset/Duration: Sudden Onset, Lasting Hours, Still Present Timing: Constant Severity Currently: Severe Aggravating: Nothing Alleviating: Nothing Associated Signs & Symptoms: Diarrhea, Vomiting - Allergies/Home Medications Allergies/Adverse Reactions: Allergies Allergy/AdvReac Type Severity Reaction Status Date / Time cortisone Allergy Severe Difficulty Verified 05/11/17 03:42 Breathing methylprednisolone Allergy Severe Difficulty Verified 05/11/17 03:42 Breathing latex Allergy Intermediate Itching Verified 05/11/17 03:42 methylparaben Allergy Intermediate Pain Verified 05/11/17 04:18 morphine Allergy Intermediate Hallucinati Verified 05/11/17 04:18 ons piroxicam Allergy Intermediate Pain Verified 05/11/17 04:18 sulindac Allergy Intermediate See Comment Verified 05/11/17 04:18 tizanidine Allergy Intermediate Swelling Verified 05/11/17 03:42 Of Face,Lips,& Throat Tricyclic Compounds Allergy Intermediate Altered Verified 05/11/17 04:18 Mental Status hydromorphone Allergy Mild See Comment Verified 05/11/17 04:18 ibuprofen Allergy Mild Rash And Verified 05/11/17 03:42 Itching itraconazole Allergy Mild Rash Verified 05/11/17 03:42 lanolin Allergy Mild Rash Verified 05/11/17 03:42 milnacipran Allergy Mild Rash And Verified 05/11/17 04:18 Itching mometasone furoate Allergy Mild Headache Verified 05/11/17 04:18 naloxone Allergy Mild Headache Verified 05/11/17 04:18 ondansetron Allergy Mild Headache Verified 05/11/17 04:18 oxycodone Allergy Mild Palpitation Verified 05/11/17 04:18 s oxymorphone Allergy Mild Palpitation Verified 05/11/17 04:18 s Penicillins Allergy Mild Rash Verified 05/11/17 03:42 pentazocine Allergy Mild Palpitation Verified 05/11/17 04:18 s propoxyphene Allergy Mild Rash Verified 05/11/17 03:42 sulfasalazine Allergy Mild Rash Verified 05/11/17 03:42 talc Allergy Mild Rash Verified 05/11/17 03:42 tramadol Allergy Mild Muscle Ache Verified 05/11/17 04:18 trazodone Allergy Mild Insomnia Verified 05/11/17 04:18 acetaminophen Allergy Unknown Unknown Verified 05/11/17 04:18 Reaction Details Adhesive Tape Allergy Unknown Unknown Verified 05/11/17 04:18 Reaction Details alprazolam Allergy Unknown Unknown Verified 05/11/17 04:18 Reaction Details amitriptyline Allergy Unknown Unknown Verified 05/11/17 04:18 Reaction Details aspirin Allergy Unknown Unknown Verified 05/11/17 04:18 Reaction Details cefaclor Allergy Unknown Unknown Verified 05/11/17 04:18 Reaction Details clarithromycin Allergy Unknown Unknown Verified 05/11/17 04:18 Reaction Details codeine Allergy Unknown Unknown Verified 05/11/17 04:18 Reaction Details desipramine Allergy Unknown Unknown Verified 05/11/17 04:18 Reaction Details diazepam Allergy Unknown Unknown Verified 05/11/17 04:18 Reaction Details diphenhydramine Allergy Unknown Unknown Verified 05/11/17 04:18 Reaction Details doxepin Allergy Unknown Unknown Verified 05/11/17 04:18 Reaction Details doxycycline Allergy Unknown Unknown Verified 05/11/17 04:18 Reaction Details duloxetine Allergy Unknown Unknown Verified 05/11/17 04:18 Reaction Details fentanyl Allergy Unknown See Comment Verified 05/11/17 04:18 fluoxetine Allergy Unknown Unknown Verified 05/11/17 04:18 Reaction Details gabapentin Allergy Unknown See Comment Verified 05/11/17 04:18 hydrocortisone Allergy Unknown Unknown Verified 05/11/17 04:18 Reaction Details hydroxychloroquine Allergy Unknown Unknown Verified 05/11/17 04:18 Reaction Details naproxen Allergy Unknown Unknown Verified 05/11/17 04:18 Reaction Details paroxetine Allergy Unknown Unknown Verified 05/11/17 04:18 Reaction Details Perfume [Fragrance] AdvReac Mild Coughing Verified 05/11/17 01:03 ALL MELONS Allergy Severe Anaphylatic Uncoded 05/11/17 01:03 Shock APPLE AND GRAPE JUICE Allergy Severe Anaphylatic Uncoded 05/11/17 01:03 Shock BLACK PEPPER Allergy Intermediate HIVES, Uncoded 05/11/17 01:03 TROUBLE BREATHING, ITCHING, BAD STOMACH PAIN MILK Allergy Intermediate HIVES, Uncoded 05/11/17 01:03 STOMACH PAIN, TROUBLE BREATING RAW ONIONS Allergy Intermediate TROUBLE Uncoded 05/11/17 01:03 BREATHING, HIVES VINEGAR Allergy Intermediate TROUBLE Uncoded 05/11/17 01:03 BREATHING APPLESAUCE Allergy Mild Edema Uncoded 05/11/17 01:03 ENVRIONMENTAL Allergy Mild Sneezing Uncoded 05/11/17 01:03 chlorine Allergy Unknown Unknown Uncoded 05/11/17 04:18 Reaction Details CI pigment blue 63 Allergy Unknown Unknown Uncoded 05/11/17 04:18 Reaction Details PEPPERS Allergy Unknown Unknown Uncoded 05/11/17 04:18 Reaction Details BANDAIDS AdvReac Mild Blisters Uncoded 05/11/17 01:03 CIGARETTE SMOKE AdvReac Mild Airway Uncoded 05/11/17 01:03 Obstruction ICEBERG LETTUCE AdvReac Mild Stomach Uncoded 05/11/17 01:03 Cramps Home Medications: Home Medications Citrate of Magnesia* 6 ml PO BID 05/11/17 [History Confirmed 05/11/17] Methotrexate 50 mg/2 ml Vial 0.6 ml SUBCUT WEEKLY 05/11/17 [History Confirmed ] Oxycontin 10 mg (*) 10 mg PO BID 05/11/17 [History Confirmed 05/11/17] Topiramate TAB(*) 50 mg PO BID 05/11/17 [History Confirmed 05/11/17] PMH/Surg Hx/FS Hx/Imm Hx Endocrine/Hematology History: Reports: Hx Diabetes - TYPE II- ON ORAL MEDICATION AND INSULIN FOR, Hx Anemia - MILD IN THE PAST Denies: Hx Systemic Lupus Erythematosus Cardiovascular History: Reports: Hx Hypercholesterolemia, Hx Hypertension - ON MEDICATION FOR, Other Cardiovascular Problems/Disorders - SUPERIOR VENA CAVA [id number]. [facility] Denies: Hx Congestive Heart Failure - superior vena cava syndrome, Hx Pacemaker/ICD Respiratory History: Reports: Hx Asthma GI History: Reports: Hx Gastroesophageal Reflux Disease - ON MEDICATION FOR, Hx Hiatal Hernia, Other GI Disorders - HX DIVERTICULOSIS History: Denies: Hx Dialysis, Hx Renal Disease Musculoskeletal History: Reports: Hx Arthritis - OSTEO, Hx Osteoporosis, Hx Tendonitis - WRISTS AND ELBOWS, Other Musculoskeletal History - DEGEN DISC DISEASE; chronic pain Denies: Hx Rheumatoid Arthritis - myeloradicular neurapathy Sensory History: Reports: Hx Cataracts - BILAT, Hx Contacts or Glasses - READING GLASSES Denies: Hx Hearing Aid Opthamlomology History: Reports: Hx Cataracts - BILAT, Hx Contacts or Glasses - READING GLASSES Neurological History: Reports: Hx Headaches, Hx Migraine - 2-3 TIMES PER WEEK- TREATS WITH IMITREX, Other Neuro Impairments/Disorders - multiple sclerosis, FIBROMYALGIA, MYELORADICULAR NEUROPATHY Psychiatric History: Reports: Hx Depression - MILD Denies: Hx Panic Disorder - Cancer History Hx Chemotherapy: No - Surgical History Surgery Procedure, Year, and Place: Hysterectomy 1999 [facility]. D+C 1999 [facility]. BOWEL RESECTION, COLOSTOMY 1993. COLOSTOMY WITH REVERSAL 1994 [facility]. OVARIAN CYSTECTOMY 1996 [facility]. LAP CRISTIAN WITH INFUSAPORT REMOVAL 2013 [facility]. APPY REMOVAL OF RIGHT OVARIAN CYST AND RESECTION 1967. T&A. DEVIATED SEPTUM REPAIR. SINUS SURGERY 2006 [facility]. INFUSAPORT 2004. 2015- LEFT EYE CATARACT REMOVED Hx Anesthesia Reactions: No - Immunization History Date of Influenza Vaccine: hsa not received Infectious Disease History: No Infectious Disease History: Reports: Hx Hepatitis - "medical"- only while taking a medication-states no longer takes, name unkn Denies: Traveled Outside the [place] in Last 30 Days - Family History Known Family History: Positive: Other - Breast CA; anasthesia reaction Negative: Cardiac Disease - Social History Occupation: Disabled Lives: Assisted Living Alcohol Use: None Hx Substance Use: No Substance Use Type: Reports: None Hx Tobacco Use: Yes Smoking Status (MU): Former Smoker Type: Cigarettes Amount Used/How Often: 4 PPD X 15 YEARS Length of Time of Smoking/Using Tobacco: 20 YRS Have You Smoked in the Last Year: No Review of Systems Negative: Fever Positive: Vomiting, Diarrhea. Negative: Nausea Positive: Headache, Weakness All Other Systems Reviewed And Are Negative: Yes Physical Exam - Summary Physical Exam Summary: Appearance: Well-appearing, no distress, Well-nourished Skin: Warm, dry Head: Normal Head/Face inspection Eyes: Conjunctiva clear ENT: severely dry oral mucosa Neck: Supple, no nodes, no JVD. Respiratory: Lungs clear, Normal breath sounds, no respiratory distress Cardio: RRR, No murmur, pulses normal, brisk capillary refill Abdomen: soft, nontender, no guarding, no rebound Bowel sounds: present Musculoskeletal: Strength Intact/ ROM intact. No calf tenderness. No edema. Neuro: Alert, muscle tone normal, facial symmetry, speech normal, sensory/motor intact Psychological: Normal Triage Information Reviewed: Yes Vital Signs On Initial Exam: Initial Vitals Temp Pulse Resp BP Pulse Ox 97.1 F 68 20 126/60 98 05/10/17 21:10 05/10/17 21:10 05/10/17 21:10 05/10/17 21:10 05/10/17 21:10 Vital Signs Reviewed: Yes Diagnostics - Vital Signs Vital Signs Temp Pulse Resp BP Pulse Ox 05/10/17 22:15 66 15 97 05/10/17 22:13 108/62 05/10/17 21:10 97.1 F 68 20 126/60 98 - Laboratory Lab Results: Lab Results 05/10/17 05/10/17 05/10/17 Range/Units 22:40 22:40 23:15 WBC 16.1 H (3.5-10.8) 10^3/ul RBC 4.70 (4.0-5.4) 10^6/ul Hgb 13.3 (12.0-16.0) g/dl Hct 42 (35-47) % MCV 90 (80-97) fL MCH 28 (27-31) pg MCHC 31 (31-36) g/dl RDW 19 H (10.5-15) % Plt Count 188 (150-450) 10^3/ul MPV 8.6 (7.4-10.4) um3 Neut % (Auto) 75.4 (38-83) % Lymph % (Auto) 13.0 L (25-47) % Bandera % (Auto) 11.5 H (0-7) % Eos % (Auto) 0 (0-6) % Baso % (Auto) 0.1 (0-2) % Absolute Neuts (auto) 12.2 H (1.5-7.7) 10^3/ul Absolute Lymphs (auto) 2.1 (1.0-4.8) 10^3/ul Absolute Monos (auto) 1.9 H (0-0.8) 10^3/ul Absolute Eos (auto) 0 (0-0.6) 10^3/ul Absolute Basos (auto) 0 (0-0.2) 10^3/ul Absolute Nucleated RBC 0 10^3/ul Nucleated RBC % 0 VBG pH 7.30 L (7.33-7.43) VBG pCO2 69 H (41-51) mmHg VBG pO2 19 L (35-45) mmHg VBG HCO3 27.0 (24-28) mmol/L VBG O2 Saturation 33.0 L (70-80) % VBG Base Excess 5.1 H (0-4) Sodium 128 L (133-145) mmol/L Potassium 3.6 (3.5-5.0) mmol/L Chloride 86 L (101-111) mmol/L Carbon Dioxide 29 (22-32) mmol/L Anion Gap 13 H (2-11) mmol/L BUN 17 (6-24) mg/dL Creatinine 1.48 H (0.51-0.95) mg/dL Est GFR ( Amer) 45.1 (>60) Est GFR (Non-Af Amer) 35.1 (>60) BUN/Creatinine Ratio 11.5 (8-20) Glucose 1116 H* (70-100) mg/dL Calcium 9.7 (8.6-10.3) mg/dL Magnesium 2.5 (1.9-2.7) mg/dL Total Bilirubin 0.80 (0.2-1.0) mg/dL AST 28 (13-39) U/L ALT 34 (7-52) U/L Alkaline Phosphatase 148 H (34-104) U/L Troponin I 0.01 (<0.04) ng/mL Total Protein 6.8 (6.4-8.9) g/dL Albumin 3.8 (3.2-5.2) g/dL Globulin 3.0 (2-4) g/dL Albumin/Globulin Ratio 1.3 (1-3) Lipase 325 H (11.0-82.0) U/L Urine Color Urine Appearance Urine pH (5-9) Ur Specific Larimore (1.010-1.030) Urine Protein (Negative) Urine Ketones (Negative) Urine Blood (Negative) Urine Nitrate (Negative) Urine Bilirubin (Negative) Urine Urobilinogen (Negative) Ur Leukocyte Esterase (Negative) Urine WBC (Auto) (Absent) Urine RBC (Auto) (Absent) Ur Squamous Epith Cells (Absent) Urine Bacteria (Absent) Urine Glucose (Negative) 05/10/17 Range/Units 23:35 WBC (3.5-10.8) 10^3/ul RBC (4.0-5.4) 10^6/ul Hgb (12.0-16.0) g/dl Hct (35-47) % MCV (80-97) fL MCH (27-31) pg MCHC (31-36) g/dl RDW (10.5-15) % Plt Count (150-450) 10^3/ul MPV (7.4-10.4) um3 Neut % (Auto) (38-83) % Lymph % (Auto) (25-47) % Bandera % (Auto) (0-7) % Eos % (Auto) (0-6) % Baso % (Auto) (0-2) % Absolute Neuts (auto) (1.5-7.7) 10^3/ul Absolute Lymphs (auto) (1.0-4.8) 10^3/ul Absolute Monos (auto) (0-0.8) 10^3/ul Absolute Eos (auto) (0-0.6) 10^3/ul Absolute Basos (auto) (0-0.2) 10^3/ul Absolute Nucleated RBC 10^3/ul Nucleated RBC % VBG pH (7.33-7.43) VBG pCO2 (41-51) mmHg VBG pO2 (35-45) mmHg VBG HCO3 (24-28) mmol/L VBG O2 Saturation (70-80) % VBG Base Excess (0-4) Sodium (133-145) mmol/L Potassium (3.5-5.0) mmol/L Chloride (101-111) mmol/L Carbon Dioxide (22-32) mmol/L Anion Gap (2-11) mmol/L BUN (6-24) mg/dL Creatinine (0.51-0.95) mg/dL Est GFR ( Amer) (>60) Est GFR (Non-Af Amer) (>60) BUN/Creatinine Ratio (8-20) Glucose (70-100) mg/dL Calcium (8.6-10.3) mg/dL Magnesium (1.9-2.7) mg/dL Total Bilirubin (0.2-1.0) mg/dL AST (13-39) U/L ALT (7-52) U/L Alkaline Phosphatase (34-104) U/L Troponin I (<0.04) ng/mL Total Protein (6.4-8.9) g/dL Albumin (3.2-5.2) g/dL Globulin (2-4) g/dL Albumin/Globulin Ratio (1-3) Lipase (11.0-82.0) U/L Urine Color Straw Urine Appearance Clear Urine pH 6.0 (5-9) Ur Specific Larimore 1.023 (1.010-1.030) Urine Protein Negative (Negative) Urine Ketones Negative (Negative) Urine Blood 1+ A (Negative) Urine Nitrate Negative (Negative) Urine Bilirubin Negative (Negative) Urine Urobilinogen Negative (Negative) Ur Leukocyte Esterase Negative (Negative) Urine WBC (Auto) Trace(0-5/hpf) (Absent) Urine RBC (Auto) Trace(0-2/hpf) (Absent) Ur Squamous Epith Cells Present A (Absent) Urine Bacteria 1+ A (Absent) Urine Glucose 3+(>=500 mg/dl) A (Negative) Result Diagrams: 05/11/17 11:40 05/11/17 11:40 Lab Statement: Any lab studies that have been ordered have been reviewed, and results considered in the medical decision making process. - CT Head CT Interpretation: No Acute Changes CT Interpretation Completed By: Radiologist - L high parietal subarachnoid cyst is again noted without appreciable change in size. No hemorrhage. No solid mass. No obvious infarct. Osseous structures are intact. On the prior scan, there was opacification of the sphenoid sinus with unspecified material. on the current scan, it looks to have been cleared. - EKG 22:33 Cardiac Rate: NL EKG Rhythm: Sinus Rhythm - 67 BPM EKG Interpretation: prolonged QT interval, nml axis, no STTwave changes Re-Evaluation - Re-Evaluation First Eval Re-Evaluation Time: 00:40 Change: Improved Comment: Pt resting comfortably in bed. pt hemodynamically stable. Pt symptomatically improved with IVF. pt now more awake and responsive. pt states she feels symptomatically better. Diabetic Course/Dx - Course Assessment/Plan: Pt with evidence of severe dehydration resulting on HONC. Plan for continuous IVF and admission. - Diagnoses Differential Dx: Diabetic Ketoacidosis, Hyperglycemia, Hyperosmolar State, Hypoglycemia, New Onset Diabetes Provider Diagnoses: Hyperosmolar (nonketotic) coma - Physician Notifications Discussed Care Of Patient With: Ginger Vazquez - Agrees to admit the pt. Time Discussed With Above Provider: 00:40 - Critical Care Time Critical Care Time: 30-74 min Discharge - Sign-Out/Discharge Documenting (check all that apply): Discharge - Discharge Plan Condition: Improved Disposition: ADMITTED TO [facility] - Billing Disposition and Condition Condition: IMPROVED Disposition: [facility] The documentation as recorded by the Felton mayer Stephanie accurately reflects the service I personally performed and the decisions made by , Talha Correa MD.
[2017-05-11] MEDS: Atorvastatin* 10 MG TAB PO SCH (21:10)
[2017-05-12] MEDS: HYDROmorphone INJ* 2 MG/ML CARPUJECT SYRINGE IV PRN ×4 (00:20→11:04)
[2017-05-12] MEDS: Insulin GLARGINE(*) 1 UNITS UNIT SUBCUT SCH (05:55)
[2017-05-12] MEDS: oxyCODONE SR TAB(*) 10 MG TAB.SR PO SCH ×2 (05:55→18:33)
[2017-05-12] MEDS: Heparin VIAL(*) 5000 UNITS/ML VIAL (FIVE THOUSAND) SUBCUT SCH ×3 (05:55→21:38)
[2017-05-12 06:22] LABS: Hematocrit 36 % (35-47); Hemoglobin 11.5 g/dl (12.0-16.0); Mean Corpuscular HGB Conc 32 g/dl (31-36); Mean Corpuscular Hemoglobin 28 pg (27-31); Mean Corpuscular Volume 86 fL (80-97); Mean Platelet Volume 7.9 um3 (7.4-10.4); Platelet Count 159 10^3/ul (150-450); Red Blood Count 4.14 10^6/ul (4.0-5.4); Red Cell Distribution Width 20 % (10.5-15); White Blood Count 14.4 10^3/ul (3.5-10.8)
[2017-05-12 06:41] LABS: EGFR Non-African American 63.1 (>60)
[2017-05-12] MEDS: DEXLANSOPRAZOLE 60 MG PO SCH (07:55)
[2017-05-12] MEDS: Topiramate TAB(*) 25 MG PO SCH ×2 (07:56→20:45)
[2017-05-12] MEDS: PTO:Linaclotide (NF) 290 MCG CAP PO SCH (07:56)
[2017-05-12] MEDS: Azelastine 0.15% NASAL(NF) 30 ML BTL BOTH NARES SCH ×2 (07:57→20:53)
[2017-05-12] MEDS: Cetirizine* 10 MG TAB PO SCH (07:57)
[2017-05-12] MEDS: Baclofen TAB* 20 MG PO SCH ×4 (07:57→20:44)
[2017-05-12] MEDS: Folic Acid TAB* 1 MG PO SCH (07:57)
[2017-05-12] MEDS: Atenolol TAB* 25 MG PO SCH (07:57)
[2017-05-12] MEDS: Cholecalciferol TAB* 1000 UNITS PO SCH (07:57)
[2017-05-12] MEDS: Insulin LISPRO* 1 UNITS UNIT SUBCUT SCH ×8 (08:38→21:26)
[2017-05-12] MEDS: HYDROMORPHONE 4 MG PO PRN ×3 (14:02→21:35)
[2017-05-12] MEDS: Bumetanide TAB* 2 MG PO SCH ×2 (14:03→20:44)
[2017-05-12] MEDS: Potassium Chlor TAB* 20 MEQ TAB.ER PO SCH (14:03)
[2017-05-12] MEDS: Potassium & Sodium Phos 250MG* = 1 PACKET PO SCH ×2 (14:03→20:45)
--- NOTE | 2017-05-12 14:58 | RAD ---
HISTORY: Pancreatitis, elevated transaminases COMPARISONS: CT dated May 11, 2017 TECHNIQUE: Multiple transverse and longitudinal ultrasound images were obtained of the pancreas using grayscale and color Doppler imaging. FINDINGS: Evaluation of the tail of pancreas is limited by overlying bowel gas. The head of the pancreas is unremarkable. The body of the pancreas is grossly normal. The pancreatic duct is normal in caliber measuring 0.1 cm. The distal common bile duct measures 0.7 cm. The common hepatic duct measures 0.3 cm in caliber. There is no appreciable stone IMPRESSION: UNREMARKABLE ULTRASOUND OF THE PANCREAS. THE COMMON DUCT MEASURES UP TO 0.7 CM. THE PANCREATIC DUCT IS NORMAL IN CALIBER. THERE IS NO APPRECIABLE CHOLEDOCHOLITHIASIS
[2017-05-12] MEDS: Atorvastatin* 10 MG TAB PO SCH (20:45)
[2017-05-13] MEDS: HYDROMORPHONE 4 MG PO PRN ×6 (01:00→23:24)
[2017-05-13] MEDS: Heparin VIAL(*) 5000 UNITS/ML VIAL (FIVE THOUSAND) SUBCUT SCH ×3 (06:12→23:02)
[2017-05-13] MEDS: oxyCODONE SR TAB(*) 10 MG TAB.SR PO SCH ×3 (06:13→18:34)
[2017-05-13] MEDS: Insulin GLARGINE(*) 1 UNITS UNIT SUBCUT SCH (06:13)
[2017-05-13 06:18] LABS: ABS Basophils 0 10^3/ul (0-0.2); ABS Eosinophils 0.3 10^3/ul (0-0.6); ABS Lymphocytes 4.3 10^3/ul (1.0-4.8); ABS Monocytes 1.1 10^3/ul (0-0.8); ABS Neutrophils 4.3 10^3/ul (1.5-7.7); ABS Nucleated RBC 0 10^3/ul; Eosinophil % 2.5 % (0-6); Hematocrit 39 % (35-47); Hemoglobin 12.6 g/dl (12.0-16.0); Lymphocyte % 43.2 % (25-47); Mean Corpuscular HGB Conc 33 g/dl (31-36); Mean Corpuscular Hemoglobin 28 pg (27-31); Mean Corpuscular Volume 86 fL (80-97); Mean Platelet Volume 7.9 um3 (7.4-10.4); Nucleated Red Blood Cells % 0; Platelet Count 170 10^3/ul (150-450); Red Blood Count 4.48 10^6/ul (4.0-5.4); Red Cell Distribution Width 20 % (10.5-15); White Blood Count 9.9 10^3/ul (3.5-10.8)
[2017-05-13 06:47] LABS: EGFR Non-African American 56.4 (>60)
[2017-05-13] MEDS: Insulin LISPRO* 1 UNITS UNIT SUBCUT SCH ×7 (08:17→23:03)
[2017-05-13] MEDS: Folic Acid TAB* 1 MG PO SCH (08:29)
[2017-05-13] MEDS: Potassium Chlor TAB* 20 MEQ TAB.ER PO SCH (08:29)
[2017-05-13] MEDS: Cetirizine* 10 MG TAB PO SCH (08:29)
[2017-05-13] MEDS: Bumetanide TAB* 2 MG PO SCH (08:29)
[2017-05-13] MEDS: Topiramate TAB(*) 25 MG PO SCH ×2 (08:30→23:05)
[2017-05-13] MEDS: Cholecalciferol TAB* 1000 UNITS PO SCH (08:30)
[2017-05-13] MEDS: Atenolol TAB* 25 MG PO SCH (08:30)
[2017-05-13] MEDS: Baclofen TAB* 20 MG PO SCH ×4 (08:30→23:06)
[2017-05-13] MEDS: Potassium & Sodium Phos 250MG* = 1 PACKET PO SCH (08:30)
[2017-05-13] MEDS: DEXLANSOPRAZOLE 60 MG PO SCH (08:30)
[2017-05-13] MEDS: PTO:Linaclotide (NF) 290 MCG CAP PO SCH (08:31)
[2017-05-13] MEDS: Potassium Chloride LIQUID* 20 MEQ PACKET PO SCH (09:55)
[2017-05-13] MEDS: Azelastine 0.15% NASAL(NF) 30 ML BTL BOTH NARES SCH (09:55)
--- NOTE | 2017-05-13 12:52 | PN ---
Subjective - Subjective History: I have assumed care of Jessica Brown while Dr. Anila Saul is out of town. She signed her out to me in detail and I have also reviewed her EHR. She is feeling improved. She has been eating and drinking and has constipation - passing flatus. She has no fevers/sweats/chills. She has her usual chronic pain syndrome. She notes her mental state has improved. Metabolic developmental history: maternal uneventful weight 6 lbs 2 oz full term Bottle fed Elementary school - skinny Menarche [age] years. Her menses were regular Mild hirsutism on arms As teen - played softball, but not athlete, dancer or cheerleader Body image disorder, but no anorexia or bulemia nervosa 16 years 110 lbs 67" No GDM - weights of babies 6 lbs 3 oz, 6 lbs 7 oz 38 years - she developed T2D - this improved after she went to a healing service at [employer] 60 years developed T2D again. Doesn't remember her sequence of treatments Post hysterectomy. Menopause "late" Risk factors - former smoker. No alcohol. Dyslipidemia Microvascular complications: neuropathy - no nephropathy or retinopathy Macrovascular disease - denies CAD, cerebro vascular disease, PVD. Has venous insufficiency FH: T2D - maternal aunt and uncle CAD both granedfathers Autoimmune disease - mat. aunt - SLE Chronic pain syndrome "undiagnosed autoimmune disease" - after 2nd - pain everywhere, weakness, blurred vision. Chronic pain syndrome: Opioiod dependence - takes hydromorphone 8 mg 1 - 2 tablets every 3 hours MDD 7 and oxycodone 10 mg bid She states after November 2016 stopped taking care of her T2D - only taking insulin 4 - 5 times per week. In the weeks leading up to her admission - took insulin 1 - 2 times per week. Uncontrolled T2D She describes her presentation as being associated with nausea/vomiting diarrhea and altered mental state. SH She lives in [facility] and has an aide 4 times per week Active Problems: Active Problems Acute pancreatitis (Acute) K85.90 Hyperosmolar non-ketotic state in patient with type 2 diabetes mellitus (Acute) E11.01 Chronic pain syndrome (Chronic) G89.4 Diverticulosis (Chronic) K57.90 Fibromyalgia (Chronic) M79.7 GERD (gastroesophageal reflux disease) (Chronic) K21.9 History of cholecystectomy (Chronic) Z90.49 Multiple drug allergies (Chronic) Z88.9 Opioid dependence (Chronic) F11.20 Polypharmacy (Chronic) Z79.899 Psychosocial impairment (Chronic) Z65.9 Status post laparoscopic cholecystectomy (Chronic) Z90.49 Type 2 diabetes, uncontrolled, 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, E11.65 Current Medications: Current Medications Acetaminophen (Tylenol Tab*) 650 mg PO Q4H PRN PRN Reason: FEVER/PAIN Al Hydrox/Mg Hydrox/Simethicone (Maalox Plus*) 30 ml PO Q6H PRN PRN Reason: INDIGESTION Atenolol (Tenormin Tab*) 12.5 mg PO DAILY [facility] Last Admin: 05/13/17 08:30 Dose: 12.5 mg Atorvastatin Calcium (Lipitor*) 10 mg PO BEDTIME [facility] Last Admin: 05/12/17 20:45 Dose: 10 mg Azelastine HCl (Astepro 0.15% Nasal (Nf)) 2 spray BOTH NARES BID [facility] Last Admin: 05/13/17 09:55 Dose: Not Given Baclofen (Lioresal Tab*) 20 mg PO QID [facility] Last Admin: 05/13/17 08:30 Dose: 20 mg Bumetanide (Bumex Tab*) 2 mg PO BID [facility] Last Admin: 05/13/17 08:29 Dose: 2 mg Cetirizine HCl (Zyrtec*) 10 mg PO DAILY [facility] Last Admin: 05/13/17 08:29 Dose: 10 mg Cholecalciferol (Vitamin D Tab*) 4,000 units PO DAILY [facility] Last Admin: 05/13/17 08:30 Dose: 4,000 units Dexlansoprazole (Dexilant (Nf)) 60 mg PO DAILY [facility] Last Admin: 05/13/17 08:30 Dose: 60 mg Dextrose (D50w Syringe 50 Ml*) 12.5 gm IV PUSH .FOR FS < 60 - SS PRN PRN Reason: FS < 60 Docusate Sodium (Colace Cap*) 100 mg PO BID PRN PRN Reason: CONSTIPATION Folic Acid (Folvite Tab*) 1 mg PO DAILY [facility] Last Admin: 05/13/17 08:29 Dose: 1 mg Heparin Sodium (Porcine) (Heparin Vial(*)) 5,000 units SUBCUT Q8HR [facility] Last Admin: 05/13/17 06:12 Dose: 5,000 units Hydromorphone HCl (Dilaudid Tab*) 8 mg PO Q3H PRN PRN Reason: PAIN Last Admin: 05/13/17 08:29 Dose: 8 mg Insulin Glargine (Lantus(*)) 40 units SUBCUT Q24H [facility] Last Admin: 05/13/17 06:13 Dose: 40 units Insulin Human Lispro (Humalog*) 0 units SUBCUT AC [facility] PRN Reason: Protocol Last Admin: 05/13/17 09:56 Dose: 1 units Insulin Human Lispro (Humalog*) 0 units SUBCUT ACHS [facility] PRN Reason: Protocol Last Admin: 05/13/17 08:17 Dose: Not Given Linaclotide (Linzess (Nf)) 290 mcg PO QAM [facility] Last Admin: 05/13/17 08:31 Dose: 290 mcg Oxycodone HCl (Oxycontin(*)) 10 mg PO 0600,1800 [facility] Last Admin: 05/13/17 06:27 Dose: 10 mg Potassium Chloride (Klor-Con Liquid*) 20 meq PO DAILY [facility] Last Admin: 05/13/17 09:55 Dose: Not Given Potassium Phos/Sodium Phos (Neutra Phos 250 Mg Justin*) 250 mg PO TID [facility] Last Admin: 05/13/17 08:30 Dose: 250 mg Prochlorperazine Edisylate (Compazine Inj*) 5 mg IV Q6H PRN PRN Reason: NAUSEA/VOMITING Last Admin: 05/11/17 08:32 Dose: 5 mg Senna (Senokot Tab*) 1 tab PO BID PRN PRN Reason: CONSTIPATION Last Admin: 05/13/17 05:02 Dose: 1 tab Sumatriptan Succinate (Imitrex Tab*) 100 mg PO DAILY PRN PRN Reason: MIGRAINE HEADACHE Topiramate (Topamax(*)) 50 mg PO BID [facility] Last Admin: 05/13/17 08:30 Dose: 50 mg Home Medications: Home Medications Medication Instructions Recorded Confirmed Type metFORMIN* [Glucophage 1000 MG TAB 1,000 mg PO BID 03/31/13 05/11/17 History *] Baclofen TAB* [Lioresal TAB*] 20 mg PO QID 07/29/14 05/11/17 History Bumetanide TAB* [Bumex 2 MG TAB*] 2 mg PO BID 07/29/14 05/11/17 History Dexlansoprazole (NF) [Dexilant 60 mg PO DAILY 07/29/14 05/11/17 History (NF)] Linaclotide (NF) [Linzess (NF)] 290 mcg PO QAM 07/29/14 05/11/17 History Ondansetron TAB* [Zofran 4 MG Tab*] 4 mg SL QID PRN 07/29/14 05/11/17 History LevoCETirizine TAB (NF) [Xyzal TAB 5 mg PO DAILY 01/27/15 05/11/17 History (NF)] Azelastine 0.15% NASAL(NF) 2 spray BOTH NARES BID 03/02/15 05/11/17 History [Astepro 0.15% NASAL (NF)] Insulin Lispro [Humalog Kwikpen 0 - 100 unit SUBCUT DAILY MDD per 03/03/1505/11 History U-100] sliding scale Atorvastatin* [Lipitor 10 MG*] 10 mg PO BEDTIME 06/07/15 05/11/17 History Epiklor 20 meq PO DAILY 10/04/16 05/11/17 History Alpha-Lipoic Acid (Thioctic AC 100 mg PO BID 10/06/16 05/11/17 History [Alpha Lipoic Acid] Folic Acid TAB* [Folvite TAB*] 1 mg PO DAILY 10/06/16 05/11/17 History Ascorbic Acid/Ascorbate Sodium 1 waf PO DAILY 01/17/17 05/11/17 History [Vitamin C 500 mg Wafer] Atenolol TAB* [Tenormin TAB* 25 MG] 12.5 mg PO DAILY 01/17/17 05/11/17 History Brimonidine Tartrate [Mirvaso] 0.33 % TOPICAL BID 01/17/17 05/11/17 History Cholecalciferol TAB* [Vitamin D 4,000 units PO DAILY 01/17/17 05/11/17 History TAB*] Clobetasol Propionate [Temovate] 0.05 % TOPICAL BID PRN 01/17/17 05/11/17 History Estradiol [Estrace] 1 mg PO DAILY 01/17/17 05/11/17 History Hydromorphone HCl [Dilaudid] 8 mg PO Q3HR 01/17/17 05/11/17 History Insulin GLARGINE(*) [Lantus(*)] 47 units SUBCUT BEDTIME 01/17/17 05/11/17 History Ipratropium [place] 0.06 % BOTH NARES QID PRN 01/17/17 05/11/17 History [place]-3 Fatty Acids (Nf) [Fish Oil 1,000 mg PO BID 01/17/17 05/11/17 History (NF)] SUMAtriptan TAB* [Imitrex TAB*] 100 mg PO DAILY PRN MDD 200 mg 01/17/17 History metroNIDAZOLE [Metrogel] 1 % TOPICAL BID PRN 01/17/17 05/11/17 History Citrate of Magnesia* 6 ml PO BID 05/11/17 05/11/17 History Methotrexate 50 mg/2 ml Vial 0.6 ml SUBCUT WEEKLY 05/11/17 05/11/17 History Oxycontin 10 mg (*) 10 mg PO BID 05/11/17 05/11/17 History Topiramate TAB(*) 50 mg PO BID 05/11/17 05/11/17 History Allergies: Allergies Allergy/AdvReac Type Severity Reaction Status Date / Time cortisone Allergy Severe Difficulty Verified 05/11/17 03:42 Breathing methylprednisolone Allergy Severe Difficulty Verified 05/11/17 03:42 Breathing latex Allergy Intermediate Itching Verified 05/11/17 03:42 methylparaben Allergy Intermediate Pain Verified 05/11/17 04:18 morphine Allergy Intermediate Hallucinati Verified 05/11/17 04:18 ons piroxicam Allergy Intermediate Pain Verified 05/11/17 04:18 sulindac Allergy Intermediate See Comment Verified 05/11/17 04:18 tizanidine Allergy Intermediate Swelling Verified 05/11/17 03:42 Of Face,Lips,& Throat Tricyclic Compounds Allergy Intermediate Altered Verified 05/11/17 04:18 Mental Status hydromorphone Allergy Mild See Comment Verified 05/11/17 04:18 ibuprofen Allergy Mild Rash And Verified 05/11/17 03:42 Itching itraconazole Allergy Mild Rash Verified 05/11/17 03:42 lanolin Allergy Mild Rash Verified 05/11/17 03:42 milnacipran Allergy Mild Rash And Verified 05/11/17 04:18 Itching mometasone furoate Allergy Mild Headache Verified 05/11/17 04:18 naloxone Allergy Mild Headache Verified 05/11/17 04:18 ondansetron Allergy Mild Headache Verified 05/11/17 04:18 oxycodone Allergy Mild Palpitation Verified 05/11/17 04:18 s oxymorphone Allergy Mild Palpitation Verified 05/11/17 04:18 s Penicillins Allergy Mild Rash Verified 05/11/17 03:42 pentazocine Allergy Mild Palpitation Verified 05/11/17 04:18 s propoxyphene Allergy Mild Rash Verified 05/11/17 03:42 sulfasalazine Allergy Mild Rash Verified 05/11/17 03:42 talc Allergy Mild Rash Verified 05/11/17 03:42 tramadol Allergy Mild Muscle Ache Verified 05/11/17 04:18 trazodone Allergy Mild Insomnia Verified 05/11/17 04:18 acetaminophen Allergy Unknown Unknown Verified 05/11/17 04:18 Reaction Details Adhesive Tape Allergy Unknown Unknown Verified 05/11/17 04:18 Reaction Details alprazolam Allergy Unknown Unknown Verified 05/11/17 04:18 Reaction Details amitriptyline Allergy Unknown Unknown Verified 05/11/17 04:18 Reaction Details aspirin Allergy Unknown Unknown Verified 05/11/17 04:18 Reaction Details cefaclor Allergy Unknown Unknown Verified 05/11/17 04:18 Reaction Details clarithromycin Allergy Unknown Unknown Verified 05/11/17 04:18 Reaction Details codeine Allergy Unknown Unknown Verified 05/11/17 04:18 Reaction Details desipramine Allergy Unknown Unknown Verified 05/11/17 04:18 Reaction Details diazepam Allergy Unknown Unknown Verified 05/11/17 04:18 Reaction Details diphenhydramine Allergy Unknown Unknown Verified 05/11/17 04:18 Reaction Details doxepin Allergy Unknown Unknown Verified 05/11/17 04:18 Reaction Details doxycycline Allergy Unknown Unknown Verified 05/11/17 04:18 Reaction Details duloxetine Allergy Unknown Unknown Verified 05/11/17 04:18 Reaction Details fentanyl Allergy Unknown See Comment Verified 05/11/17 04:18 fluoxetine Allergy Unknown Unknown Verified 05/11/17 04:18 Reaction Details gabapentin Allergy Unknown See Comment Verified 05/11/17 04:18 hydrocortisone Allergy Unknown Unknown Verified 05/11/17 04:18 Reaction Details hydroxychloroquine Allergy Unknown Unknown Verified 05/11/17 04:18 Reaction Details naproxen Allergy Unknown Unknown Verified 05/11/17 04:18 Reaction Details paroxetine Allergy Unknown Unknown Verified 05/11/17 04:18 Reaction Details Perfume [Fragrance] AdvReac Mild Coughing Verified 05/11/17 01:03 ALL MELONS Allergy Severe Anaphylatic Uncoded 05/11/17 01:03 Shock APPLE AND GRAPE JUICE Allergy Severe Anaphylatic Uncoded 05/11/17 01:03 Shock BLACK PEPPER Allergy Intermediate HIVES, Uncoded 05/11/17 01:03 TROUBLE BREATHING, ITCHING, BAD STOMACH PAIN MILK Allergy Intermediate HIVES, Uncoded 05/11/17 01:03 STOMACH PAIN, TROUBLE BREATING RAW ONIONS Allergy Intermediate TROUBLE Uncoded 05/11/17 01:03 BREATHING, HIVES VINEGAR Allergy Intermediate TROUBLE Uncoded 05/11/17 01:03 BREATHING APPLESAUCE Allergy Mild Edema Uncoded 05/11/17 01:03 ENVRIONMENTAL Allergy Mild Sneezing Uncoded 05/11/17 01:03 chlorine Allergy Unknown Unknown Uncoded 05/11/17 04:18 Reaction Details CI pigment blue 63 Allergy Unknown Unknown Uncoded 05/11/17 04:18 Reaction Details PEPPERS Allergy Unknown Unknown Uncoded 05/11/17 04:18 Reaction Details BANDAIDS AdvReac Mild Blisters Uncoded 05/11/17 01:03 CIGARETTE SMOKE AdvReac Mild Airway Uncoded 05/11/17 01:03 Obstruction ICEBERG LETTUCE AdvReac Mild Stomach Uncoded 05/11/17 01:03 Cramps Objective - Vital Signs Vital Signs: Vital Signs 05/12/17 05/12/17 05/12/17 14:02 15:31 16:50 Temperature 97.4 F Pulse Rate 65 Respiratory 20 16 20 Rate Blood Pressure 129/60 (mmHg) O2 Sat by Pulse 97 Oximetry 05/12/17 05/12/17 05/12/17 18:33 19:11 20:00 Temperature 98.0 F Pulse Rate 66 Respiratory 18 18 16 Rate Blood Pressure 130/66 (mmHg) O2 Sat by Pulse 98 Oximetry 05/12/17 05/12/17 05/12/17 20:41 20:44 21:35 Temperature Pulse Rate Respiratory 16 18 16 Rate Blood Pressure (mmHg) O2 Sat by Pulse Oximetry 05/12/17 05/12/17 05/13/17 23:35 23:55 01:00 Temperature 97.8 F Pulse Rate 59 Respiratory 16 18 16 Rate Blood Pressure 150/69 (mmHg) O2 Sat by Pulse 100 Oximetry 05/13/17 05/13/17 05/13/17 03:00 03:14 05:02 Temperature 98.6 F Pulse Rate 65 Respiratory 16 18 18 Rate Blood Pressure 119/58 (mmHg) O2 Sat by Pulse 98 Oximetry 05/13/17 05/13/17 05/13/17 06:27 07:26 08:00 Temperature 98.8 F Pulse Rate 66 Respiratory 20 18 18 Rate Blood Pressure 148/73 (mmHg) O2 Sat by Pulse 97 Oximetry 05/13/17 05/13/17 05/13/17 08:29 08:54 11:22 Temperature Pulse Rate Respiratory 18 18 18 Rate Blood Pressure (mmHg) O2 Sat by Pulse Oximetry - Intake and Output Intake and Output: Intake & Output 05/11/17 05/12/17 05/13/17 05/14/17 11:59 11:59 11:59 11:59 Intake Total 1947.7 3404.2 1288 Output Total 250 7700 Balance 1947.7 3154.2 -6412 Weight 169 lb 15.622 oz 174 lb 13.225 oz 168 lb 8 oz Intake: IV Fluids 1000 2776 58 KCL 270 NS (0.9%) 2506 58 IVPB 533 NS (0.9%) 533 Medicated IV 14.7 28.2 CC - Insulin 14.7 28.2 Oral 445 019 1422 Output: Urine 250 7700 Other: Estimated Void Medium Medium # Bowel Movements 0 # Voids 2 2 ADLs: Meal Record Start: 05/11/17 02: 56 Freq: 09,13,18 Status: Complete Protocol: Document 05/11/17 08:46 [id number] (Rec: 05/11/17 08:46 [id number] ICU-C07) Document 05/11/17 13:00 [id number] (Rec: 05/11/17 13:15 [id number] ICU-C07) Document 05/11/17 18:00 [id number] (Rec: 05/11/17 19:02 [id number] ICU-C07) ADLs: Meal Record Start: 05/12/17 11: 59 Freq: DAILY@0900,1400,1800 Status: Active Protocol: Created 05/12/17 11:59 [id number] (Rec: 05/12/17 11:59 [id number] ICU-C07) Document 05/12/17 14:00 [id number] (Rec: 05/12/17 14:56 [id number] MED-C04) Document 05/12/17 18:00 [id number] (Rec: 05/12/17 18:55 [id number] MED-C11) Document 05/13/17 09:00 [id number] (Rec: 05/13/17 09:59 [id number] MED-C11) Intake and Output Start: 05/11/17 02: 56 Freq: 06,14,22 Status: Complete Protocol: Document 05/11/17 05:25 [id number] (Rec: 05/11/17 05:25 [id number] ICU-C20) Document 05/11/17 14:00 [id number] (Rec: 05/11/17 14:25 [id number] ICU-M12) Document 05/11/17 22:00 [id number] (Rec: 05/12/17 02:41 [id number] ICU-C07) Document 05/12/17 06:00 [id number] (Rec: 05/12/17 06:54 [id number] ICU-C07) Intake and Output Start: 05/12/17 11: 59 Freq: DAILY@0600,1400,2200 Status: Active Protocol: Created 05/12/17 11:59 [id number] (Rec: 05/12/17 11:59 [id number] ICU-C07) Document 05/12/17 14:00 [id number] (Rec: 05/12/17 14:56 [id number] MED-C04) Document 05/12/17 20:46 [id number] (Rec: 05/12/17 20:46 [id number] MED-C11) Document 05/13/17 03:26 [id number] (Rec: 05/13/17 03:26 [id number] MED-C11) Document 05/13/17 06:00 [id number] (Rec: 05/13/17 06:48 [id number] MED-C11) Document 05/13/17 09:50 [id number] (Rec: 05/13/17 09:50 [id number] MED-C11) Document 05/13/17 10:28 [id number] (Rec: 05/13/17 10:29 [id number] MED-C11) Document 05/13/17 11:10 [id number] (Rec: 05/13/17 11:10 [id number] MED-C11) - Physical Exam General Physical Exam Comment: Pterygium right lateral eye. General: No Cyanosis, No Anemia, No Jaundice, No Clubbing Skin: Normal: Rash Endocrine: Yes Central Obesity, No Hirsuitism, No Virilism, No Acromegaly, No Vitiligo, No Flushing, No Acanthosis nigricans, No Violaceious striae, No [place] Syndrome, No Buccal pigmenatation, No Chin Crease Pigmentation Lungs and Chest: Yes: Chest Expansion Full, Chest Expansion Symetrica, Percussion Note Resonant. No: Vessicular Breath Sounds, Crackles, Wheezes, Respiratory Distress Heart Rate and Rhythm: Regular JVP: Not Elevated Additional Cardiovascular: Yes: Normal Heart Sounds. No: Heart Murmur, Pedal Edema Abdominal Exam: Yes: Distention, Soft, Abdominal Tenderness - on the slightest touch, Guarding, Bowel Sounds Present. No: Abdominal Mass, Hepatomegaly, Rebound Tenderness Results - Results Lab Results: Laboratory Results - last 24 hr 05/12/17 05/12/17 05/13/17 17:00 20:41 05:38 WBC 9.9 RBC 4.48 Hgb 12.6 Hct 39 MCV 86 MCH 28 MCHC 33 RDW 20 H Plt Count 170 MPV 7.9 Neut % (Auto) 43.3 Lymph % (Auto) 43.2 Jack % (Auto) 10.8 H Eos % (Auto) 2.5 Baso % (Auto) 0.2 Absolute Neuts (auto) 4.3 Absolute Lymphs (auto) 4.3 Absolute Monos (auto) 1.1 H Absolute Eos (auto) 0.3 Absolute Basos (auto) 0 Absolute Nucleated RBC 0 Nucleated RBC % 0 Sodium Potassium Chloride Carbon Dioxide Anion Gap BUN Creatinine Est GFR ( Amer) Est GFR (Non-Af Amer) BUN/Creatinine Ratio Glucose POC Glucose (mg/dL) 224 H 261 H Calcium Phosphorus Magnesium Total Bilirubin AST ALT Alkaline Phosphatase Total Protein Albumin Globulin Albumin/Globulin Ratio 05/13/17 05/13/17 05/13/17 05:38 07:55 12:02 WBC RBC Hgb Hct MCV MCH MCHC RDW Plt Count MPV Neut % (Auto) Lymph % (Auto) Jack % (Auto) Eos % (Auto) Baso % (Auto) Absolute Neuts (auto) Absolute Lymphs (auto) Absolute Monos (auto) Absolute Eos (auto) Absolute Basos (auto) Absolute Nucleated RBC Nucleated RBC % Sodium 141 Potassium 3.2 L Chloride 109 Carbon Dioxide 26 Anion Gap 6 BUN 12 Creatinine 0.98 H Est GFR ( Amer) 72.6 Est GFR (Non-Af Amer) 56.4 BUN/Creatinine Ratio 12.2 Glucose 100 POC Glucose (mg/dL) 72 132 H Calcium 8.1 L Phosphorus 2.9 Magnesium 2.0 Total Bilirubin 0.60 AST 37 ALT 40 Alkaline Phosphatase 93 Total Protein 5.6 L Albumin 3.0 L Globulin 2.6 Albumin/Globulin Ratio 1.2 Radiology Results: Patient Name: JESSICA BROWN Medical Record#: [id number] Ordering Physician: Anila Saul MD Acct.#: [id number] : 1950 Age: 66 Sex: F Location: [facility] Exam Date: 05/11/17 1017 ADM Status: ADM IN Order Information: CT ABD/PEL W Accession Number: [id number] CPT: 70107 INDICATION: Nausea, vomiting, abdominal tenderness. Post appendectomy, cholecystectomy, ovarian cystectomy, and bowel resection with colostomy and subsequent reversal. COMPARISON: January 29, 2017 abdominal ultrasound. October 02, 2016 CT. TECHNIQUE: Multidetector CT images were obtained from the lung bases to the ischial tuberosities with 96 mL Visipaque 320 IV and oral contrast. Multiplanar reformation. REPORT: Images through the inferior thorax are remarkable for mild bilateral dependent subsegmental atelectasis. 20.8 cm cephalocaudal liver is severely decreased in density consistent with hepatosteatosis with subcapsular and gallbladder fossa level sparing. No suspicious focal hepatic lesions evident. Post cholecystectomy. Negative for biliary dilatation. Mildly atrophic pancreas without suspicious finding. Unremarkable spleen. Bilateral mesenteric to normally opacified portal vein measures 1.6 cm diameter. Patent splenic vein and superior mesenteric vein. Systemic anterior abdominal wall shunts extending to the great saphenous veins adjacent to the saphenous femoral junctions. Mild perienteric edema present at the level of the first and second segments of the duodenum. No visualized neural thickening of the duodenum. Unremarkable jejunal and ileal small bowel loops. Post appendectomy. Unremarkable sigmoid colon bowel anastomosis. Negative for ascites or free air. Small fat-containing supraumbilical midline hernia containing lesser omentum fat and blood vessels without suggestion of inflammatory change. Normal adrenal glands. Symmetric mildly delayed nephrograms and pyelograms. Subcentimeter LEFT renal cortical lesions most consistent with benign cysts however too small to accurately characterize. No suspicious renal lesions or hydronephrosis. Unremarkable nondilated ureters and distended urinary bladder. Post hysterectomy. Unremarkable adnexal regions. Negative for retroperitoneal lymphadenopathy. Negative for aortoiliac aneurysm. Mild atherosclerotic plaque. Full physiologic distention of the IVC consistent with high volume state. IMPRESSION: 1. Mild inflammatory change around the first and second segments of the duodenum which may reflect presence of duodenitis. Negative for perienteric abscess or free air. 2. Hepatomegaly and hepatosteatosis with evidence for portal hypertension based on portosystemic shunts. 3. Negative for ascites. 4. Negative for splenomegaly. 5. Mildly delayed bilateral nephrograms and pyelograms. Correlate for potential early acute renal failure. 6. High volume state based on magnitude of distention of the inferior vena cava. <Electronically signed by Tony Cali MD in [place]> 05/11/17 1148 Dictated By: Tony Cali MD Dictated Date/Time: 05/11/17 1148 Transcribed Date/Time: 05/11/17 1130 1 of 2 Patient Name: JESSICA BROWN Medical Record#: [id number] Ordering Physician: Anila Saul MD Acct.#: [id number] : 1950 Age: 66 Sex: F Location: [address] [place] [address] - MEDICAL Exam Date: 05/12/17 1113 ADM Status: ADM IN Order Information: US PANCREAS Accession Number: [id number] CPT: 15173 HISTORY: Pancreatitis, elevated transaminases COMPARISONS: CT dated May 11, 2017 TECHNIQUE: Multiple transverse and longitudinal ultrasound images were obtained of the pancreas using grayscale and color Doppler imaging. FINDINGS: Evaluation of the tail of pancreas is limited by overlying bowel gas. The head of the pancreas is unremarkable. The body of the pancreas is grossly normal. The pancreatic duct is normal in caliber measuring 0.1 cm. The distal common bile duct measures 0.7 cm. The common hepatic duct measures 0.3 cm in caliber. There is no appreciable stone IMPRESSION: UNREMARKABLE ULTRASOUND OF THE PANCREAS. THE COMMON DUCT MEASURES UP TO 0.7 CM. THE PANCREATIC DUCT IS NORMAL IN CALIBER. THERE IS NO APPRECIABLE CHOLEDOCHOLITHIASIS <Electronically signed by Ilan Villegas MD in [place]> 05/12/171454 Dictated By: Ilan Villegas MD Dictated Date/Time: 05/12/171454 Transcribed Date/Time: 05/12/171453 Copy to: CC:Willi Keith MD; Anila Saul MD; Ginger Vazquez DO [facility] [address] [address] ph [phone]) ph ([phone]) ph [phone]) Patient Name: JESSICA BROWN Medical Record#: [id number] Ordering Physician: Talha Correa MD Acct.#: [id number] : 1950 Age: 66 Sex: F Location: [facility] Exam Date: 05/10/172233 ADM Status: ADM IN Order Information: CHEST AP PORTABLE Accession Number: [id number] CPT: 03288 INDICATION: Chest pain. COMPARISON: Comparison is made with a prior study from January 17, 2017. TECHNIQUE: A portable view of the chest was obtained. FINDINGS: Cardiac and mediastinal contours appear to be within normal limits. There is elevation of the right hemidiaphragm which is unchanged. The lungs are underinflated and clear. No pleural effusion is seen. IMPRESSION: NO EVIDENCE FOR ACUTE FINDING. <Electronically signed by Dirk Echevarria MD in [place]> 05/11/17727 Dictated By: Dirk Echevarria MD Dictated Date/Time: 05/11/17727 Transcribed Date/Time: 05/11/17726 Copy to: CC:Anila Saul MD; Ginger Vazquez DO; Talha Correa MD Imaging - [facility] - [place] [facility] Imaging - [facility] [address] [address] ph [phone]) ph ([phone]) ph ([phone]) Assessment - Problem List Assessment: Patient Problems Thyroid nodule (Acute) Arthritis (Acute) Diabetes mellitus (Acute) Acute pancreatitis (Acute) Hyperosmolar non-ketotic state in patient with type 2 diabetes mellitus (Acute) Chronic pain syndrome (Chronic) Diverticulosis (Chronic) Fibromyalgia (Chronic) GERD (gastroesophageal reflux disease) (Chronic) History of cholecystectomy (Chronic) Multiple drug allergies (Chronic) Opioid dependence (Chronic) Polypharmacy (Chronic) Psychosocial impairment (Chronic) Status post laparoscopic cholecystectomy (Chronic) Type 2 diabetes, uncontrolled, with neuropathy (Chronic) Plan: Hyperosmolar non-ketotic state in patient with type 2 diabetes mellitus (Acute) E11.01Acute pancreatitis (Acute) K85.90 She presented with poor control of T2D due to non compliance. She had nausea/vomiting/abdo pain. She has mild elevation of her pancreatic enzymes. She has had successful treatment of her hyperosmolar state and is now eating and drinking. Imaging does not show acute pancreatitis (US or CT), so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
[2017-05-13] MEDS: SUMAtriptan SQ* 6 MG/0.5 ML VIAL SUBCUT PRN ×2 (15:51→18:34)
[2017-05-13] MEDS: metFORMIN* 1,000 MG TAB PO SCH (18:34)
[2017-05-13] MEDS: Atorvastatin* 10 MG TAB PO SCH (23:04)
[2017-05-13] MEDS: AZELASTINE 0.1% BOTH NARES SCH (23:21)
[2017-05-14] MEDS: oxyCODONE SR TAB(*) 10 MG TAB.SR PO SCH ×2 (06:25→17:57)
[2017-05-14] MEDS: Heparin VIAL(*) 5000 UNITS/ML VIAL (FIVE THOUSAND) SUBCUT SCH ×2 (06:25→13:03)
[2017-05-14] MEDS: Insulin GLARGINE(*) 1 UNITS UNIT SUBCUT SCH (06:26)
[2017-05-14] MEDS: HYDROMORPHONE 4 MG PO PRN ×3 (06:34→20:24)
[2017-05-14 06:53] LABS: EGFR Non-African American 62.3 (>60)
--- NOTE | 2017-05-14 08:39 | PN ---
Subjective - Subjective Reason for Note: Progress Note History: She is feeling much better and is stronger. She states she can walk independently and doesn't think she requires a stay in a SNF. I note she had a hypoglycemic episode yesterday followed by rebound hyperglycemia. This morning her glucose is above target - I have reduced her Lantus from 40 units to 25 units. She has no other focal symptoms Active Problems: Active Problems Acute pancreatitis (Acute) K85.90 Autoimmune disease (Acute) D89.89 Hyperosmolar non-ketotic state in patient with type 2 diabetes mellitus (Acute) E11.01 Chronic pain syndrome (Chronic) G89.4 Diverticulosis (Chronic) K57.90 Fibromyalgia (Chronic) M79.7 GERD (gastroesophageal reflux disease) (Chronic) K21.9 History of cholecystectomy (Chronic) Z90.49 Multiple drug allergies (Chronic) Z88.9 Opioid dependence (Chronic) F11.20 Polypharmacy (Chronic) Z79.899 Psychosocial impairment (Chronic) Z65.9 Status post laparoscopic cholecystectomy (Chronic) Z90.49 Type 2 diabetes, uncontrolled, 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, E11.65 Current Medications: Current Medications Acetaminophen (Tylenol Tab*) 650 mg PO Q4H PRN PRN Reason: FEVER/PAIN Al Hydrox/Mg Hydrox/Simethicone (Maalox Plus*) 30 ml PO Q6H PRN PRN Reason: INDIGESTION Atenolol (Tenormin Tab*) 12.5 mg PO DAILY [facility] Last Admin: 05/13/17 08:30 Dose: 12.5 mg Atorvastatin Calcium (Lipitor*) 10 mg PO BEDTIME [facility] Last Admin: 05/13/17 23:04 Dose: 10 mg Azelastine HCl (Astepro 0.15% Nasal (Nf)) 2 spray BOTH NARES BID [facility] Last Admin: 05/13/17 23:21 Dose: 2 spray Baclofen (Lioresal Tab*) 20 mg PO QID [facility] Last Admin: 05/13/17 23:06 Dose: 20 mg Bumetanide (Bumex Tab*) 2 mg PO DAILY [facility] Cetirizine HCl (Zyrtec*) 10 mg PO DAILY [facility] Last Admin: 05/13/17 08:29 Dose: 10 mg Cholecalciferol (Vitamin D Tab*) 1,000 units PO DAILY [facility] Dexlansoprazole (Dexilant (Nf)) 60 mg PO DAILY [facility] Last Admin: 05/13/17 08:30 Dose: 60 mg Dextrose (D50w Syringe 50 Ml*) 12.5 gm IV PUSH .FOR FS < 60 - SS PRN PRN Reason: FS < 60 Docusate Sodium (Colace Cap*) 100 mg PO BID PRN PRN Reason: CONSTIPATION Heparin Sodium (Porcine) (Heparin Vial(*)) 5,000 units SUBCUT Q8HR [facility] Last Admin: 05/14/17 06:25 Dose: 5,000 units Hydromorphone HCl (Dilaudid Tab*) 8 mg PO Q3H PRN PRN Reason: PAIN Last Admin: 05/14/17 06:34 Dose: 8 mg Insulin Glargine (Lantus(*)) 25 units SUBCUT 0600 [facility] Last Admin: 05/14/17 06:26 Dose: 25 units Insulin Human Lispro (Humalog*) 0 units SUBCUT AC [facility] PRN Reason: Protocol Last Admin: 05/13/17 18:19 Dose: Not Given Insulin Human Lispro (Humalog*) 0 units SUBCUT ACHS [facility] PRN Reason: Protocol Last Admin: 05/13/17 23:03 Dose: 10 unit Linaclotide (Linzess (Nf)) 290 mcg PO QAM [facility] Last Admin: 05/13/17 08:31 Dose: 290 mcg Metformin HCl (Glucophage*) 1,000 mg PO 0800,1700 [facility] Last Admin: 05/13/17 18:34 Dose: 1,000 mg Oxycodone HCl (Oxycontin(*)) 10 mg PO 0600,1800 [facility] Last Admin: 05/14/17 06:25 Dose: 10 mg Potassium Chloride (Klor-Con Liquid*) 20 meq PO DAILY [facility] Last Admin: 05/13/17 09:55 Dose: Not Given Senna (Senokot Tab*) 1 tab PO BID PRN PRN Reason: CONSTIPATION Last Admin: 05/13/17 05:02 Dose: 1 tab Sumatriptan Succinate (Imitrex Sq*) 6 mg SUBCUT .SEE DIRECTIONS PRN PRN Reason: HEADACHE Last Admin: 05/13/17 18:34 Dose: 6 mg Topiramate (Topamax(*)) 50 mg PO BID [facility] Last Admin: 05/13/17 23:05 Dose: Not Given Home Medications: Home Medications Medication Instructions Recorded Confirmed Type metFORMIN* [Glucophage 1000 MG TAB 1,000 mg PO BID 03/31/13 05/11/17 History *] Baclofen TAB* [Lioresal TAB*] 20 mg PO QID 07/29/14 05/11/17 History Bumetanide TAB* [Bumex 2 MG TAB*] 2 mg PO BID 07/29/14 05/11/17 History Dexlansoprazole (NF) [Dexilant 60 mg PO DAILY 07/29/14 05/11/17 History (NF)] Linaclotide (NF) [Linzess (NF)] 290 mcg PO QAM 07/29/14 05/11/17 History Ondansetron TAB* [Zofran 4 MG Tab*] 4 mg SL QID PRN 07/29/14 05/11/17 History LevoCETirizine TAB (NF) [Xyzal TAB 5 mg PO DAILY 01/27/15 05/11/17 History (NF)] Azelastine 0.15% NASAL(NF) 2 spray BOTH NARES BID 03/02/15 05/11/17 History [Astepro 0.15% NASAL (NF)] Insulin Lispro [Humalog Kwikpen 0 - 100 unit SUBCUT DAILY MDD per 03/03/1505/11 History U-100] sliding scale Atorvastatin* [Lipitor 10 MG*] 10 mg PO BEDTIME 06/07/15 05/11/17 History Epiklor 20 meq PO DAILY 10/04/16 05/11/17 History Alpha-Lipoic Acid (Thioctic AC 100 mg PO BID 10/06/16 05/11/17 History [Alpha Lipoic Acid] Folic Acid TAB* [Folvite TAB*] 1 mg PO DAILY 10/06/16 05/11/17 History Ascorbic Acid/Ascorbate Sodium 1 waf PO DAILY 01/17/17 05/11/17 History [Vitamin C 500 mg Wafer] Atenolol TAB* [Tenormin TAB* 25 MG] 12.5 mg PO DAILY 01/17/17 05/11/17 History Brimonidine Tartrate [Mirvaso] 0.33 % TOPICAL BID 01/17/17 05/11/17 History Cholecalciferol TAB* [Vitamin D 4,000 units PO DAILY 01/17/17 05/11/17 History TAB*] Clobetasol Propionate [Temovate] 0.05 % TOPICAL BID PRN 01/17/17 05/11/17 History Estradiol [Estrace] 1 mg PO DAILY 01/17/17 05/11/17 History Hydromorphone HCl [Dilaudid] 8 mg PO Q3HR 01/17/17 05/11/17 History Insulin GLARGINE(*) [Lantus(*)] 47 units SUBCUT BEDTIME 01/17/17 05/11/17 History Ipratropium [place] 0.06 % BOTH NARES QID PRN 01/17/17 05/11/17 History [place]-3 Fatty Acids (Nf) [Fish Oil 1,000 mg PO BID 01/17/17 05/11/17 History (NF)] SUMAtriptan TAB* [Imitrex TAB*] 100 mg PO DAILY PRN MDD 200 mg 01/17/17 History metroNIDAZOLE [Metrogel] 1 % TOPICAL BID PRN 01/17/17 05/11/17 History Citrate of Magnesia* 6 ml PO BID 05/11/17 05/11/17 History Methotrexate 50 mg/2 ml Vial 0.6 ml SUBCUT WEEKLY 05/11/17 05/11/17 History Oxycontin 10 mg (*) 10 mg PO BID 05/11/17 05/11/17 History Topiramate TAB(*) 50 mg PO BID 05/11/17 05/11/17 History Allergies: Allergies Allergy/AdvReac Type Severity Reaction Status Date / Time cortisone Allergy Severe Difficulty Verified 05/11/17 03:42 Breathing methylprednisolone Allergy Severe Difficulty Verified 05/11/17 03:42 Breathing latex Allergy Intermediate Itching Verified 05/11/17 03:42 methylparaben Allergy Intermediate Pain Verified 05/11/17 04:18 morphine Allergy Intermediate Hallucinati Verified 05/11/17 04:18 ons piroxicam Allergy Intermediate Pain Verified 05/11/17 04:18 sulindac Allergy Intermediate See Comment Verified 05/11/17 04:18 tizanidine Allergy Intermediate Swelling Verified 05/11/17 03:42 Of Face,Lips,& Throat Tricyclic Compounds Allergy Intermediate Altered Verified 05/11/17 04:18 Mental Status hydromorphone Allergy Mild See Comment Verified 05/11/17 04:18 ibuprofen Allergy Mild Rash And Verified 05/11/17 03:42 Itching itraconazole Allergy Mild Rash Verified 05/11/17 03:42 lanolin Allergy Mild Rash Verified 05/11/17 03:42 milnacipran Allergy Mild Rash And Verified 05/11/17 04:18 Itching mometasone furoate Allergy Mild Headache Verified 05/11/17 04:18 naloxone Allergy Mild Headache Verified 05/11/17 04:18 ondansetron Allergy Mild Headache Verified 05/11/17 04:18 oxycodone Allergy Mild Palpitation Verified 05/11/17 04:18 s oxymorphone Allergy Mild Palpitation Verified 05/11/17 04:18 s Penicillins Allergy Mild Rash Verified 05/11/17 03:42 pentazocine Allergy Mild Palpitation Verified 05/11/17 04:18 s propoxyphene Allergy Mild Rash Verified 05/11/17 03:42 sulfasalazine Allergy Mild Rash Verified 05/11/17 03:42 talc Allergy Mild Rash Verified 05/11/17 03:42 tramadol Allergy Mild Muscle Ache Verified 05/11/17 04:18 trazodone Allergy Mild Insomnia Verified 05/11/17 04:18 acetaminophen Allergy Unknown Unknown Verified 05/11/17 04:18 Reaction Details Adhesive Tape Allergy Unknown Unknown Verified 05/11/17 04:18 Reaction Details alprazolam Allergy Unknown Unknown Verified 05/11/17 04:18 Reaction Details amitriptyline Allergy Unknown Unknown Verified 05/11/17 04:18 Reaction Details aspirin Allergy Unknown Unknown Verified 05/11/17 04:18 Reaction Details cefaclor Allergy Unknown Unknown Verified 05/11/17 04:18 Reaction Details clarithromycin Allergy Unknown Unknown Verified 05/11/17 04:18 Reaction Details codeine Allergy Unknown Unknown Verified 05/11/17 04:18 Reaction Details desipramine Allergy Unknown Unknown Verified 05/11/17 04:18 Reaction Details diazepam Allergy Unknown Unknown Verified 05/11/17 04:18 Reaction Details diphenhydramine Allergy Unknown Unknown Verified 05/11/17 04:18 Reaction Details doxepin Allergy Unknown Unknown Verified 05/11/17 04:18 Reaction Details doxycycline Allergy Unknown Unknown Verified 05/11/17 04:18 Reaction Details duloxetine Allergy Unknown Unknown Verified 05/11/17 04:18 Reaction Details fentanyl Allergy Unknown See Comment Verified 05/11/17 04:18 fluoxetine Allergy Unknown Unknown Verified 05/11/17 04:18 Reaction Details gabapentin Allergy Unknown See Comment Verified 05/11/17 04:18 hydrocortisone Allergy Unknown Unknown Verified 05/11/17 04:18 Reaction Details hydroxychloroquine Allergy Unknown Unknown Verified 05/11/17 04:18 Reaction Details naproxen Allergy Unknown Unknown Verified 05/11/17 04:18 Reaction Details paroxetine Allergy Unknown Unknown Verified 05/11/17 04:18 Reaction Details Perfume [Fragrance] AdvReac Mild Coughing Verified 05/11/17 01:03 ALL MELONS Allergy Severe Anaphylatic Uncoded 05/11/17 01:03 Shock APPLE AND GRAPE JUICE Allergy Severe Anaphylatic Uncoded 05/11/17 01:03 Shock BLACK PEPPER Allergy Intermediate HIVES, Uncoded 05/11/17 01:03 TROUBLE BREATHING, ITCHING, BAD STOMACH PAIN MILK Allergy Intermediate HIVES, Uncoded 05/11/17 01:03 STOMACH PAIN, TROUBLE BREATING RAW ONIONS Allergy Intermediate TROUBLE Uncoded 05/11/17 01:03 BREATHING, HIVES VINEGAR Allergy Intermediate TROUBLE Uncoded 05/11/17 01:03 BREATHING APPLESAUCE Allergy Mild Edema Uncoded 05/11/17 01:03 ENVRIONMENTAL Allergy Mild Sneezing Uncoded 05/11/17 01:03 chlorine Allergy Unknown Unknown Uncoded 05/11/17 04:18 Reaction Details CI pigment blue 63 Allergy Unknown Unknown Uncoded 05/11/17 04:18 Reaction Details PEPPERS Allergy Unknown Unknown Uncoded 05/11/17 04:18 Reaction Details BANDAIDS AdvReac Mild Blisters Uncoded 05/11/17 01:03 CIGARETTE SMOKE AdvReac Mild Airway Uncoded 05/11/17 01:03 Obstruction ICEBERG LETTUCE AdvReac Mild Stomach Uncoded 05/11/17 01:03 Cramps Objective - Vital Signs Vital Signs: Vital Signs 05/13/17 05/13/17 05/13/17 08:54 11:22 11:29 Temperature 97.9 F Pulse Rate 61 Respiratory 18 18 18 Rate Blood Pressure 110/62 (mmHg) O2 Sat by Pulse 100 Oximetry 05/13/17 05/13/17 05/13/17 13:32 15:32 16:59 Temperature 97.6 F Pulse Rate 38 Respiratory 18 16 18 Rate Blood Pressure 137/68 (mmHg) O2 Sat by Pulse 98 Oximetry 05/13/17 05/13/17 05/13/17 18:34 19:24 22:34 Temperature 97.6 F Pulse Rate 71 Respiratory 18 20 20 Rate Blood Pressure 150/74 (mmHg) O2 Sat by Pulse 85 Oximetry 05/13/17 05/13/17 05/13/17 22:52 23:19 23:24 Temperature 98.0 F Pulse Rate 79 Respiratory 20 20 20 Rate Blood Pressure 141/72 (mmHg) O2 Sat by Pulse 100 Oximetry 05/13/17 05/14/17 05/14/17 23:30 01:30 03:09 Temperature 97.6 F Pulse Rate 71 Respiratory 20 16 20 Rate Blood Pressure 116/64 (mmHg) O2 Sat by Pulse 99 Oximetry 05/14/17 05/14/17 06:25 06:34 Temperature Pulse Rate Respiratory 20 20 Rate Blood Pressure (mmHg) O2 Sat by Pulse Oximetry - Intake and Output Intake and Output: Intake & Output 05/11/17 05/12/17 05/13/17 05/14/17 11:59 11:59 11:59 11:59 Intake Total 1947.7 3404.2 1288 1520 Output Total 250 7700 1823 Balance 1947.7 3154.2 -6412 -303 Weight 169 lb 15.622 oz 174 lb 13.225 oz 168 lb 8 oz 162 lb 6.4 oz Intake: IV Fluids 1000 2776 58 KCL 270 NS (0.9%) 2506 58 IVPB 533 NS (0.9%) 533 Medicated IV 14.7 28.2 CC - Insulin 14.7 28.2 Oral 356 313 8575 1520 Output: Urine 250 7700 1823 Other: Estimated Void Medium Medium Medium # Bowel Movements 0 1 Estimated Stool Amount Medium # Voids 2 2 0 ADLs: Meal Record Start: 05/11/17 02: 56 Freq: ,,18 Status: Complete Protocol: Document 05/11/17 08:46 [id number] (Rec: 05/11/17 08:46 [id number] ICU-C07) Document 05/11/17 13:00 [id number] (Rec: 05/11/17 13:15 [id number] ICU-C07) Document 05/11/17 18:00 [id number] (Rec: 05/11/17 19:02 [id number] ICU-C07) ADLs: Meal Record Start: 05/12/17 11: 59 Freq: DAILY@0900,1400,1800 Status: Active Protocol: Created 05/12/17 11:59 [id number] (Rec: 05/12/17 11:59 [id number] ICU-C07) Document 05/12/17 14:00 [id number] (Rec: 05/12/17 14:56 [id number] MED-C04) Document 05/12/17 18:00 [id number] (Rec: 05/12/17 18:55 [id number] MED-C11) Document 05/13/17 09:00 [id number] (Rec: 05/13/17 09:59 [id number] MED-C11) Document 05/13/17 13:24 [id number] (Rec: 05/13/17 13:25 [id number] MED-C11) Document 05/13/17 18:00 [id number] (Rec: 05/13/17 18:21 [id number] MED-M01) Intake and Output Start: 05/11/17 02: 56 Freq: 06,14,22 Status: Complete Protocol: Document 05/11/17 05:25 [id number] (Rec: 05/11/17 05:25 [id number] ICU-C20) Document 05/11/17 14:00 [id number] (Rec: 05/11/17 14:25 [id number] ICU-M12) Document 05/11/17 22:00 [id number] (Rec: 05/12/17 02:41 [id number] ICU-C07) Document 05/12/17 06:00 [id number] (Rec: 05/12/17 06:54 [id number] ICU-C07) Intake and Output Start: 05/12/17 11: 59 Freq: DAILY@0600,1400,2200 Status: Active Protocol: Created 05/12/17 11:59 [id number] (Rec: 05/12/17 11:59 [id number] ICU-C07) Document 05/12/17 14:00 [id number] (Rec: 05/12/17 14:56 [id number] MED-C04) Document 05/12/17 20:46 [id number] (Rec: 05/12/17 20:46 [id number] MED-C11) Document 05/13/17 03:26 [id number] (Rec: 05/13/17 03:26 [id number] MED-C11) Document 05/13/17 06:00 [id number] (Rec: 05/13/17 06:48 [id number] MED-C11) Document 05/13/17 09:50 [id number] (Rec: 05/13/17 09:50 [id number] MED-C11) Document 05/13/17 10:28 [id number] (Rec: 05/13/17 10:29 [id number] MED-C11) Document 05/13/17 11:10 [id number] (Rec: 05/13/17 11:10 [id number] MED-C11) Document 05/13/17 14:00 [id number] (Rec: 05/13/17 14:05 [id number] MED-C11) Document 05/13/17 22:00 [id number] (Rec: 05/13/17 22:18 [id number] MED-C07) Document 05/14/17 06:00 [id number] (Rec: 05/14/17 06:23 [id number] MED-C07) - Physical Exam General: No Cyanosis, No Anemia, No Jaundice, No Clubbing Endocrine: Yes Central Obesity, No Hirsuitism, No Virilism, No Acromegaly, No Vitiligo, No Flushing, No Acanthosis nigricans, No Violaceious striae, No [place] Syndrome, No Buccal pigmenatation, No Chin Crease Pigmentation Lungs and Chest: Yes: Chest Expansion Full, Chest Expansion Symetrica, Percussion Note Resonant, Vessicular Breath Sounds. No: Crackles, Wheezes Heart Rate and Rhythm: Regular Additional Cardiovascular: Yes: Normal Heart Sounds. No: Heart Murmur, Pedal Edema Abdominal Exam: Yes: Soft, Bowel Sounds Present. No: Distention, Abdominal Tenderness - Neuro Orientation: A/O x3 Speech: Normal Results - Results Lab Results: Laboratory Results - last 24 hr 05/13/17 05/13/17 05/13/17 12:02 16:14 16:31 Sodium Potassium Chloride Carbon Dioxide Anion Gap BUN Creatinine Est GFR ( Amer) Est GFR (Non-Af Amer) BUN/Creatinine Ratio Glucose POC Glucose (mg/dL) 132 H 51 L 82 Calcium Lipase 05/13/17 05/14/17 05/14/17 22:21 05:58 07:51 Sodium 137 Potassium 3.7 Chloride 105 Carbon Dioxide 25 Anion Gap 7 BUN 12 Creatinine 0.90 Est GFR ( Amer) 80.1 Est GFR (Non-Af Amer) 62.3 BUN/Creatinine Ratio 13.3 Glucose 155 H POC Glucose (mg/dL) 369 H 193 H Calcium 9.0 Lipase 315 H Assessment - Problem List Assessment: Patient Problems Acute pancreatitis (Acute) Autoimmune disease (Acute) Hyperosmolar non-ketotic state in patient with type 2 diabetes mellitus (Acute) Chronic pain syndrome (Chronic) Diverticulosis (Chronic) Fibromyalgia (Chronic) GERD (gastroesophageal reflux disease) (Chronic) History of cholecystectomy (Chronic) Multiple drug allergies (Chronic) Opioid dependence (Chronic) Polypharmacy (Chronic) Psychosocial impairment (Chronic) Status post laparoscopic cholecystectomy (Chronic) Type 2 diabetes, uncontrolled, with neuropathy (Chronic) Arthritis (Acute) Diabetes mellitus (Acute) Thyroid nodule (Acute) Plan: Acute pancreatitis (Acute) Her lipase is not coming down, but she is asymptomatic, eating and drinking and her US/CT pancreas were normal. I will continue to watch her clinically. Hyperosmolar non-ketotic state in patient with type 2 diabetes mellitus (Acute) Her glycemic control is too tight on her usual insulin regimen. Clearly, non compliance is the cause of her current presentation. She had chest pain after taking metformin 1,000 mg - she thinks she takes 500 mg twice daily (or at least the pills are smaller). Chronic pain syndrome (Chronic) No especial pain this morning. 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 She has had IV solumedrol prescribed by Dr. Barroso that helps. She has not had an MRI of her brain in more than 10 years. More recently she has seen Dr. Alberto. I will discuss this with them. She attributes hot weather in November as causing her the problems with compliance with diabetes management over the winter leading to her hyperglycemic hyperosmolar presentation. I told her I am skeptical of this as she sought no help and did not advocate for herself, despite having a PROFESSOR OF LITERACY visiting, a new PCP and also an RN at [employer] [employer] who could look after her. I told her that there is no problem managing her T2D in the hospital - in fact her usual medication is too much if she is on the correct diet. I told her that we need a safe plan of discharge and that she requires diabetes education. 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 Psychosocial impairment (Chronic) Diverticulosis (Chronic) inactive Fibromyalgia (Chronic) secondary diagnosis GERD (gastroesophageal reflux disease) (Chronic) secondary diagnosis History of cholecystectomy (Chronic) Multiple drug allergies (Chronic) Opioid dependence (Chronic) Polypharmacy (Chronic) Status post laparoscopic cholecystectomy (Chronic) I discussed the above with the patient and suggested she remain in the hospital for this evaluation/diabetes education one more night - home discharge tomorrow.
[2017-05-14] MEDS: Potassium Chloride LIQUID* 20 MEQ PACKET PO SCH (09:01)
[2017-05-14] MEDS: PTO:Linaclotide (NF) 290 MCG CAP PO SCH (09:01)
[2017-05-14] MEDS: AZELASTINE 0.1% BOTH NARES SCH ×2 (09:01→20:23)
[2017-05-14] MEDS: DEXLANSOPRAZOLE 60 MG PO SCH (09:01)
[2017-05-14] MEDS: Cetirizine* 10 MG TAB PO SCH (09:01)
[2017-05-14] MEDS: Atenolol TAB* 25 MG PO SCH (09:02)
[2017-05-14] MEDS: Topiramate TAB(*) 25 MG PO SCH ×2 (09:02→23:41)
[2017-05-14] MEDS: Cholecalciferol TAB* 1000 UNITS PO SCH (09:03)
[2017-05-14] MEDS: Baclofen TAB* 20 MG PO SCH ×4 (09:03→20:24)
[2017-05-14] MEDS: Bumetanide TAB* 2 MG PO SCH (09:03)
[2017-05-14] MEDS: Insulin LISPRO* 1 UNITS UNIT SUBCUT SCH ×7 (09:04→20:35)
[2017-05-14] MEDS: metFORMIN* 500 MG TAB PO SCH ×2 (09:45→17:15)
[2017-05-14] MEDS: metFORMIN* 1,000 MG TAB PO SCH (10:04)
[2017-05-14] MEDS: SUMAtriptan SQ* 6 MG/0.5 ML VIAL SUBCUT PRN ×2 (10:15→13:04)
--- NOTE | 2017-05-14 11:23 | CONSULT ---
Subjective Reason for Visit: Diabetes education History Of Present Illness: 66 year old woman admitted through the ED with Hyperosmolic Non-Ketotic state due to poorly controlled type 2 diabetes. The details of her admission state are outlined in the note of Dr Morgan on 05/11/17 and subsequent notes by Dr Willi Keith who has been following her through this hospitalization. There is some concern regarding her compliance with use of diabetes medications and self-care at home. She is currently having a psychological evaluation regarding her ability to take care of herself and use her medications. Patient History Surgical History: Yes Surgery Procedure, Year, and Place: [place] [facility] [place] [facility] [place] BOWEL RESECTION, COLOSTOMY 1993. [place] WITH REVERSAL [place] [facility] [place]. [place]OM[place] [facility] [place] LAP CRISTIAN WITH INFUSAPORT REMOVAL 2013 [facility] [place] APPY REMOVAL OF RIGHT OVARIAN CYST AND RESECTION 1967. T&A. DEVIATED SEPTUM REPAIR. SINUS SURGERY 2006 [facility] [place] 2004. 2015- LEFT EYE CATARACT REMOVED Lives With: Self - at [facility] with home care 4 days/week Preferred/Primary Language: Albanian Hx Tobacco Use: Yes Objective Allergies Allergy/AdvReac Type Severity Reaction Status Date / Time cortisone Allergy Severe Difficulty Verified 05/11/17 03:42 Breathing methylprednisolone Allergy Severe Difficulty Verified 05/11/17 03:42 Breathing latex Allergy Intermediate Itching Verified 05/11/17 03:42 methylparaben Allergy Intermediate Pain Verified 05/11/17 04:18 morphine Allergy Intermediate Hallucinati Verified 05/11/17 04:18 ons piroxicam Allergy Intermediate Pain Verified 05/11/17 04:18 sulindac Allergy Intermediate See Comment Verified 05/11/17 04:18 tizanidine Allergy Intermediate Swelling Verified 05/11/17 03:42 Of Face,Lips,& Throat Tricyclic Compounds Allergy Intermediate Altered Verified 05/11/17 04:18 Mental Status hydromorphone Allergy Mild See Comment Verified 05/11/17 04:18 ibuprofen Allergy Mild Rash And Verified 05/11/17 03:42 Itching itraconazole Allergy Mild Rash Verified 05/11/17 03:42 lanolin Allergy Mild Rash Verified 05/11/17 03:42 milnacipran Allergy Mild Rash And Verified 05/11/17 04:18 Itching mometasone furoate Allergy Mild Headache Verified 05/11/17 04:18 naloxone Allergy Mild Headache Verified 05/11/17 04:18 ondansetron Allergy Mild Headache Verified 05/11/17 04:18 oxycodone Allergy Mild Palpitation Verified 05/11/17 04:18 s oxymorphone Allergy Mild Palpitation Verified 05/11/17 04:18 s Penicillins Allergy Mild Rash Verified 05/11/17 03:42 pentazocine Allergy Mild Palpitation Verified 05/11/17 04:18 s propoxyphene Allergy Mild Rash Verified 05/11/17 03:42 sulfasalazine Allergy Mild Rash Verified 05/11/17 03:42 talc Allergy Mild Rash Verified 05/11/17 03:42 tramadol Allergy Mild Muscle Ache Verified 05/11/17 04:18 trazodone Allergy Mild Insomnia Verified 05/11/17 04:18 acetaminophen Allergy Unknown Unknown Verified 05/11/17 04:18 Reaction Details Adhesive Tape Allergy Unknown Unknown Verified 05/11/17 04:18 Reaction Details alprazolam Allergy Unknown Unknown Verified 05/11/17 04:18 Reaction Details amitriptyline Allergy Unknown Unknown Verified 05/11/17 04:18 Reaction Details aspirin Allergy Unknown Unknown Verified 05/11/17 04:18 Reaction Details cefaclor Allergy Unknown Unknown Verified 05/11/17 04:18 Reaction Details clarithromycin Allergy Unknown Unknown Verified 05/11/17 04:18 Reaction Details codeine Allergy Unknown Unknown Verified 05/11/17 04:18 Reaction Details desipramine Allergy Unknown Unknown Verified 05/11/17 04:18 Reaction Details diazepam Allergy Unknown Unknown Verified 05/11/17 04:18 Reaction Details diphenhydramine Allergy Unknown Unknown Verified 05/11/17 04:18 Reaction Details doxepin Allergy Unknown Unknown Verified 05/11/17 04:18 Reaction Details doxycycline Allergy Unknown Unknown Verified 05/11/17 04:18 Reaction Details duloxetine Allergy Unknown Unknown Verified 05/11/17 04:18 Reaction Details fentanyl Allergy Unknown See Comment Verified 05/11/17 04:18 fluoxetine Allergy Unknown Unknown Verified 05/11/17 04:18 Reaction Details gabapentin Allergy Unknown See Comment Verified 05/11/17 04:18 hydrocortisone Allergy Unknown Unknown Verified 05/11/17 04:18 Reaction Details hydroxychloroquine Allergy Unknown Unknown Verified 05/11/17 04:18 Reaction Details naproxen Allergy Unknown Unknown Verified 05/11/17 04:18 Reaction Details paroxetine Allergy Unknown Unknown Verified 05/11/17 04:18 Reaction Details Perfume [Fragrance] AdvReac Mild Coughing Verified 05/11/17 01:03 ALL MELONS Allergy Severe Anaphylatic Uncoded 05/11/17 01:03 Shock APPLE AND GRAPE JUICE Allergy Severe Anaphylatic Uncoded 05/11/17 01:03 Shock BLACK PEPPER Allergy Intermediate HIVES, Uncoded 05/11/17 01:03 TROUBLE BREATHING, ITCHING, BAD STOMACH PAIN MILK Allergy Intermediate HIVES, Uncoded 05/11/17 01:03 STOMACH PAIN, TROUBLE BREATING RAW ONIONS Allergy Intermediate TROUBLE Uncoded 05/11/17 01:03 BREATHING, HIVES VINEGAR Allergy Intermediate TROUBLE Uncoded 05/11/17 01:03 BREATHING APPLESAUCE Allergy Mild Edema Uncoded 05/11/17 01:03 ENVRIONMENTAL Allergy Mild Sneezing Uncoded 05/11/17 01:03 chlorine Allergy Unknown Unknown Uncoded 05/11/17 04:18 Reaction Details CI pigment blue 63 Allergy Unknown Unknown Uncoded 05/11/17 04:18 Reaction Details PEPPERS Allergy Unknown Unknown Uncoded 05/11/17 04:18 Reaction Details BANDAIDS AdvReac Mild Blisters Uncoded 05/11/17 01:03 CIGARETTE SMOKE AdvReac Mild Airway Uncoded 05/11/17 01:03 Obstruction ICEBERG LETTUCE AdvReac Mild Stomach Uncoded 05/11/17 01:03 Cramps Home Medications Medication Instructions Recorded Confirmed Type metFORMIN* [Glucophage 1000 MG TAB 1,000 mg PO BID 03/31/13 05/11/17 History *] Baclofen TAB* [Lioresal TAB*] 20 mg PO QID 07/29/14 05/11/17 History Bumetanide TAB* [Bumex 2 MG TAB*] 2 mg PO BID 07/29/14 05/11/17 History Dexlansoprazole (NF) [Dexilant 60 mg PO DAILY 07/29/14 05/11/17 History (NF)] Linaclotide (NF) [Linzess (NF)] 290 mcg PO QAM 07/29/14 05/11/17 History Ondansetron TAB* [Zofran 4 MG Tab*] 4 mg SL QID PRN 07/29/14 05/11/17 History LevoCETirizine TAB (NF) [Xyzal TAB 5 mg PO DAILY 01/27/15 05/11/17 History (NF)] Azelastine 0.15% NASAL(NF) 2 spray BOTH NARES BID 03/02/15 05/11/17 History [Astepro 0.15% NASAL (NF)] Insulin Lispro [Humalog Kwikpen 0 - 100 unit SUBCUT DAILY MDD per 03/03/1505/11 History U-100] sliding scale Atorvastatin* [Lipitor 10 MG*] 10 mg PO BEDTIME 06/07/15 05/11/17 History Epiklor 20 meq PO DAILY 10/04/16 05/11/17 History Alpha-Lipoic Acid (Thioctic AC 100 mg PO BID 10/06/16 05/11/17 History [Alpha Lipoic Acid] Folic Acid TAB* [Folvite TAB*] 1 mg PO DAILY 10/06/16 05/11/17 History Ascorbic Acid/Ascorbate Sodium 1 waf PO DAILY 01/17/17 05/11/17 History [Vitamin C 500 mg Wafer] Atenolol TAB* [Tenormin TAB* 25 MG] 12.5 mg PO DAILY 01/17/17 05/11/17 History Brimonidine Tartrate [Mirvaso] 0.33 % TOPICAL BID 01/17/17 05/11/17 History Cholecalciferol TAB* [Vitamin D 4,000 units PO DAILY 01/17/17 05/11/17 History TAB*] Clobetasol Propionate [Temovate] 0.05 % TOPICAL BID PRN 01/17/17 05/11/17 History Estradiol [Estrace] 1 mg PO DAILY 01/17/17 05/11/17 History Hydromorphone HCl [Dilaudid] 8 mg PO Q3HR 01/17/17 05/11/17 History Insulin GLARGINE(*) [Lantus(*)] 47 units SUBCUT BEDTIME 01/17/17 05/11/17 History Ipratropium [place] 0.06 % BOTH NARES QID PRN 01/17/17 05/11/17 History Malott-3 Fatty Acids (Nf) [Fish Oil 1,000 mg PO BID 01/17/17 05/11/17 History (NF)] SUMAtriptan TAB* [Imitrex TAB*] 100 mg PO DAILY PRN MDD 200 mg 01/17/17 History metroNIDAZOLE [Metrogel] 1 % TOPICAL BID PRN 01/17/17 05/11/17 History Citrate of Magnesia* 6 ml PO BID 05/11/17 05/11/17 History Methotrexate 50 mg/2 ml Vial 0.6 ml SUBCUT WEEKLY 05/11/17 05/11/17 History Oxycontin 10 mg (*) 10 mg PO BID 05/11/17 05/11/17 History Topiramate TAB(*) 50 mg PO BID 05/11/17 05/11/17 History Hospital Medications: Current Medications Acetaminophen (Tylenol Tab*) 650 mg PO Q4H PRN PRN Reason: FEVER/PAIN Al Hydrox/Mg Hydrox/Simethicone (Maalox Plus*) 30 ml PO Q6H PRN PRN Reason: INDIGESTION Atenolol (Tenormin Tab*) 12.5 mg PO DAILY [facility] Last Admin: 05/14/17 09:02 Dose: 12.5 mg Atorvastatin Calcium (Lipitor*) 10 mg PO BEDTIME [facility] Last Admin: 05/13/17 23:04 Dose: 10 mg Azelastine HCl (Astepro 0.15% Nasal (Nf)) 2 spray BOTH NARES BID [facility] Last Admin: 05/14/17 09:01 Dose: 2 spray Baclofen (Lioresal Tab*) 20 mg PO QID [facility] Last Admin: 05/14/17 09:03 Dose: 20 mg Bumetanide (Bumex Tab*) 2 mg PO DAILY [facility] Last Admin: 05/14/17 09:03 Dose: 2 mg Cetirizine HCl (Zyrtec*) 10 mg PO DAILY [facility] Last Admin: 05/14/17 09:01 Dose: 10 mg Cholecalciferol (Vitamin D Tab*) 1,000 units PO DAILY [facility] Last Admin: 05/14/17 09:03 Dose: 1,000 units Dexlansoprazole (Dexilant (Nf)) 60 mg PO DAILY [facility] Last Admin: 05/14/17 09:01 Dose: 60 mg Dextrose (D50w Syringe 50 Ml*) 12.5 gm IV PUSH .FOR FS < 60 - SS PRN PRN Reason: FS < 60 Docusate Sodium (Colace Cap*) 100 mg PO BID PRN PRN Reason: CONSTIPATION Heparin Sodium (Porcine) (Heparin Vial(*)) 5,000 units SUBCUT Q8HR [facility] Last Admin: 05/14/17 06:25 Dose: 5,000 units Hydromorphone HCl (Dilaudid Tab*) 8 mg PO Q3H PRN PRN Reason: PAIN Last Admin: 05/14/17 09:45 Dose: 8 mg Insulin Glargine (Lantus(*)) 25 units SUBCUT 0600 [facility] Last Admin: 05/14/17 06:26 Dose: 25 units Insulin Human Lispro (Humalog*) 0 units SUBCUT AC [facility] PRN Reason: Protocol Last Admin: 05/14/17 09:44 Dose: 2 units Insulin Human Lispro (Humalog*) 0 units SUBCUT ACHS [facility] PRN Reason: Protocol Last Admin: 05/14/17 09:04 Dose: 2 unit Linaclotide (Linzess (Nf)) 290 mcg PO QAM [facility] Last Admin: 05/14/17 09:01 Dose: 290 mcg Metformin HCl (Glucophage*) 500 mg PO 0800,1700 [facility] Last Admin: 05/14/17 09:45 Dose: 500 mg Oxycodone HCl (Oxycontin(*)) 10 mg PO 0600,1800 [facility] Last Admin: 05/14/17 06:25 Dose: 10 mg Potassium Chloride (Klor-Con Liquid*) 20 meq PO DAILY [facility] Last Admin: 05/14/17 09:01 Dose: 20 meq Senna (Senokot Tab*) 1 tab PO BID PRN PRN Reason: CONSTIPATION Last Admin: 05/13/17 05:02 Dose: 1 tab Sumatriptan Succinate (Imitrex Sq*) 6 mg SUBCUT .SEE DIRECTIONS PRN PRN Reason: HEADACHE Last Admin: 05/14/17 10:15 Dose: 6 mg Topiramate (Topamax(*)) 50 mg PO BID [facility] Last Admin: 05/14/17 09:02 Dose: 50 mg Lab Data: VBG pH 7.30 (7.33-7.43) L 05/10/17 23:15 Sodium 137 mmol/L (133-145) 05/14/17 05:58 Potassium 3.7 mmol/L (3.5-5.0) 05/14/17 05:58 BUN 12 mg/dL (6-24) 05/14/17 05:58 Creatinine 0.90 mg/dL (0.51-0.95) 05/14/17 05:58 Hemoglobin A1c 11.0 % (4.0-5.6) H 05/10/17 22:40 Calcium 9.0 mg/dL (8.6-10.3) 05/14/17 05:58 Magnesium 2.0 mg/dL (1.9-2.7) 05/13/17 05:38 AST 37 U/L (13-39) 05/13/17 05:38 ALT 40 U/L (7-52) 05/13/17 05:38 Vital Signs: Vital Signs 05/14/17 05/14/17 05/14/17 06:25 06:34 07:57 Temperature 98.0 F Pulse Rate 71 Respiratory 20 20 16 Rate Blood Pressure 142/74 (mmHg) O2 Sat by Pulse 100 Oximetry 05/14/17 05/14/17 08:35 09:45 Temperature Pulse Rate Respiratory 20 18 Rate Blood Pressure (mmHg) O2 Sat by Pulse Oximetry Height: 5 ft 4 in Weight: 162 lb 6.4 oz Body Mass Index (BMI): 27.8 Goals Goals: Importance of consistent insulin use was discussed with her. She needed teaching reinforcement on the mechanism of action of long acting and short acting insulin. Her insulin injection sites were inspected and she was able to demonstrate how she rotates injection sites when she uses insulin. She will follow up at Dr Keith's office for diabetes education and is willing to come to [facility] for MNT visits. She would benefit from in home support to follow up on her medication compliance
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
[2017-05-14] MEDS: Atorvastatin* 10 MG TAB PO SCH (20:24)
[2017-05-15] MEDS: Heparin VIAL(*) 5000 UNITS/ML VIAL (FIVE THOUSAND) SUBCUT SCH ×3 (00:54→13:20)
[2017-05-15] MEDS ORDERED: oxyCODONE TAB* 5 MG TAB PO ONE (01:20)
[2017-05-15] MEDS: oxyCODONE SR TAB(*) 10 MG TAB.SR PO SCH ×2 (06:38→17:47)
[2017-05-15] MEDS: Insulin GLARGINE(*) 1 UNITS UNIT SUBCUT SCH (06:39)
[2017-05-15] MEDS: DEXLANSOPRAZOLE 60 MG PO SCH (08:43)
[2017-05-15] MEDS: AZELASTINE 0.1% BOTH NARES SCH (08:43)
[2017-05-15] MEDS: HYDROMORPHONE 4 MG PO PRN ×2 (08:44→12:19)
[2017-05-15] MEDS: Cholecalciferol TAB* 1000 UNITS PO SCH (08:44)
[2017-05-15] MEDS: PTO:Linaclotide (NF) 290 MCG CAP PO SCH (08:44)
[2017-05-15] MEDS: Topiramate TAB(*) 25 MG PO SCH (08:45)
[2017-05-15] MEDS: Atenolol TAB* 25 MG PO SCH (08:45)
[2017-05-15] MEDS: Bumetanide TAB* 2 MG PO SCH (08:46)
[2017-05-15] MEDS: Potassium Chloride LIQUID* 20 MEQ PACKET PO SCH (08:46)
[2017-05-15] MEDS: Cetirizine* 10 MG TAB PO SCH (08:46)
[2017-05-15] MEDS: metFORMIN* 500 MG TAB PO SCH ×2 (08:46→16:40)
[2017-05-15] MEDS: Insulin LISPRO* 1 UNITS UNIT SUBCUT SCH ×6 (08:46→17:48)
--- NOTE | 2017-05-15 09:33 | PN ---
Subjective - Subjective Reason for Note: Progress Note History: She discovered last night that she has been receiving hydromorphone and not brand dilaudid since she has been in the hospital and promptly developed intolerance to the hydromorphone. This morning she won't allow me to examine her as she is in so much pain. She states she cannot go home - even though her outpatient brand dilaudid awaits her. Otherwise, she is physically stable Active Problems: Active Problems Acute pancreatitis (Acute) K85.90 Autoimmune disease (Acute) D89.89 Hyperosmolar non-ketotic state in patient with type 2 diabetes mellitus (Acute) E11.01 Chronic pain syndrome (Chronic) G89.4 Diverticulosis (Chronic) K57.90 Fibromyalgia (Chronic) M79.7 GERD (gastroesophageal reflux disease) (Chronic) K21.9 History of cholecystectomy (Chronic) Z90.49 Multiple drug allergies (Chronic) Z88.9 Opioid dependence (Chronic) F11.20 Polypharmacy (Chronic) Z79.899 Psychosocial impairment (Chronic) Z65.9 Status post laparoscopic cholecystectomy (Chronic) Z90.49 Type 2 diabetes, uncontrolled, 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, E11.65 Current Medications: Current Medications Acetaminophen (Tylenol Tab*) 650 mg PO Q4H PRN PRN Reason: FEVER/PAIN Al Hydrox/Mg Hydrox/Simethicone (Maalox Plus*) 30 ml PO Q6H PRN PRN Reason: INDIGESTION Atenolol (Tenormin Tab*) 12.5 mg PO DAILY [facility] Last Admin: 05/15/17 08:45 Dose: 12.5 mg Atorvastatin Calcium (Lipitor*) 10 mg PO BEDTIME [facility] Last Admin: 05/14/17 20:24 Dose: 10 mg Azelastine HCl (Astepro 0.15% Nasal (Nf)) 2 spray BOTH NARES BID [facility] Last Admin: 05/15/17 08:43 Dose: 2 spray Baclofen (Lioresal Tab*) 20 mg PO QID [facility] Last Admin: 05/14/17 20:24 Dose: 20 mg Bumetanide (Bumex Tab*) 2 mg PO DAILY [facility] Last Admin: 05/15/17 08:46 Dose: 2 mg Cetirizine HCl (Zyrtec*) 10 mg PO DAILY [facility] Last Admin: 05/15/17 08:46 Dose: 10 mg Cholecalciferol (Vitamin D Tab*) 1,000 units PO DAILY [facility] Last Admin: 05/15/17 08:44 Dose: 1,000 units Dexlansoprazole (Dexilant (Nf)) 60 mg PO DAILY [facility] Last Admin: 05/15/17 08:43 Dose: 60 mg Dextrose (D50w Syringe 50 Ml*) 12.5 gm IV PUSH .FOR FS < 60 - SS PRN PRN Reason: FS < 60 Docusate Sodium (Colace Cap*) 100 mg PO BID PRN PRN Reason: CONSTIPATION Heparin Sodium (Porcine) (Heparin Vial(*)) 5,000 units SUBCUT Q8HR [facility] Last Admin: 05/15/17 06:40 Dose: 5,000 units Hydromorphone HCl (Dilaudid Tab*) 8 mg PO Q3H PRN PRN Reason: PAIN Last Admin: 05/15/17 08:44 Dose: 8 mg Insulin Glargine (Lantus(*)) 25 units SUBCUT 0600 [facility] Last Admin: 05/15/17 06:39 Dose: 25 units Insulin Human Lispro (Humalog*) 0 units SUBCUT AC [facility] PRN Reason: Protocol Last Admin: 05/15/17 09:12 Dose: Not Given Insulin Human Lispro (Humalog*) 0 units SUBCUT ACHS [facility] PRN Reason: Protocol Last Admin: 05/15/17 08:46 Dose: 2 unit Linaclotide (Linzess (Nf)) 290 mcg PO QAM [facility] Last Admin: 05/15/17 08:44 Dose: 290 mcg Metformin HCl (Glucophage*) 500 mg PO 0800,1700 [facility] Last Admin: 05/15/17 08:46 Dose: 500 mg Oxycodone HCl (Oxycontin(*)) 10 mg PO 0600,1800 [facility] Last Admin: 05/15/17 06:38 Dose: 10 mg Potassium Chloride (Klor-Con Liquid*) 20 meq PO DAILY [facility] Last Admin: 05/15/17 08:46 Dose: 20 meq Senna (Senokot Tab*) 1 tab PO BID PRN PRN Reason: CONSTIPATION Last Admin: 05/13/17 05:02 Dose: 1 tab Sumatriptan Succinate (Imitrex Sq*) 6 mg SUBCUT .SEE DIRECTIONS PRN PRN Reason: HEADACHE Last Admin: 05/14/17 13:04 Dose: 6 mg Topiramate (Topamax(*)) 50 mg PO BID [facility] Last Admin: 05/15/17 08:45 Dose: 50 mg Home Medications: Home Medications Medication Instructions Recorded Confirmed Type metFORMIN* [Glucophage 1000 MG TAB 1,000 mg PO BID 03/31/13 05/11/17 History *] Baclofen TAB* [Lioresal TAB*] 20 mg PO QID 07/29/14 05/11/17 History Bumetanide TAB* [Bumex 2 MG TAB*] 2 mg PO BID 07/29/14 05/11/17 History Dexlansoprazole (NF) [Dexilant 60 mg PO DAILY 07/29/14 05/11/17 History (NF)] Linaclotide (NF) [Linzess (NF)] 290 mcg PO QAM 07/29/14 05/11/17 History Ondansetron TAB* [Zofran 4 MG Tab*] 4 mg SL QID PRN 07/29/14 05/11/17 History LevoCETirizine TAB (NF) [Xyzal TAB 5 mg PO DAILY 01/27/15 05/11/17 History (NF)] Azelastine 0.15% NASAL(NF) 2 spray BOTH NARES BID 03/02/15 05/11/17 History [Astepro 0.15% NASAL (NF)] Insulin Lispro [Humalog Kwikpen 0 - 100 unit SUBCUT DAILY MDD per 03/03/1505/11 History U-100] sliding scale Atorvastatin* [Lipitor 10 MG*] 10 mg PO BEDTIME 06/07/15 05/11/17 History Epiklor 20 meq PO DAILY 10/04/16 05/11/17 History Alpha-Lipoic Acid (Thioctic AC 100 mg PO BID 10/06/16 05/11/17 History [Alpha Lipoic Acid] Folic Acid TAB* [Folvite TAB*] 1 mg PO DAILY 10/06/16 05/11/17 History Ascorbic Acid/Ascorbate Sodium 1 waf PO DAILY 01/17/17 05/11/17 History [Vitamin C 500 mg Wafer] Atenolol TAB* [Tenormin TAB* 25 MG] 12.5 mg PO DAILY 01/17/17 05/11/17 History Brimonidine Tartrate [Mirvaso] 0.33 % TOPICAL BID 01/17/17 05/11/17 History Cholecalciferol TAB* [Vitamin D 4,000 units PO DAILY 01/17/17 05/11/17 History TAB*] Clobetasol Propionate [Temovate] 0.05 % TOPICAL BID PRN 01/17/17 05/11/17 History Estradiol [Estrace] 1 mg PO DAILY 01/17/17 05/11/17 History Hydromorphone HCl [Dilaudid] 8 mg PO Q3HR 01/17/17 05/11/17 History Insulin GLARGINE(*) [Lantus(*)] 47 units SUBCUT BEDTIME 01/17/17 05/11/17 History Ipratropium [place] 0.06 % BOTH NARES QID PRN 01/17/17 05/11/17 History [place]-3 Fatty Acids (Nf) [Fish Oil 1,000 mg PO BID 01/17/17 05/11/17 History (NF)] SUMAtriptan TAB* [Imitrex TAB*] 100 mg PO DAILY PRN MDD 200 mg 01/17/17 History metroNIDAZOLE [Metrogel] 1 % TOPICAL BID PRN 01/17/17 05/11/17 History Citrate of Magnesia* 6 ml PO BID 05/11/17 05/11/17 History Methotrexate 50 mg/2 ml Vial 0.6 ml SUBCUT WEEKLY 05/11/17 05/11/17 History Oxycontin 10 mg (*) 10 mg PO BID 05/11/17 05/11/17 History Topiramate TAB(*) 50 mg PO BID 05/11/17 05/11/17 History Allergies: Allergies Allergy/AdvReac Type Severity Reaction Status Date / Time cortisone Allergy Severe Difficulty Verified 05/11/17 03:42 Breathing methylprednisolone Allergy Severe Difficulty Verified 05/11/17 03:42 Breathing latex Allergy Intermediate Itching Verified 05/11/17 03:42 methylparaben Allergy Intermediate Pain Verified 05/11/17 04:18 morphine Allergy Intermediate Hallucinati Verified 05/11/17 04:18 ons piroxicam Allergy Intermediate Pain Verified 05/11/17 04:18 sulindac Allergy Intermediate See Comment Verified 05/11/17 04:18 tizanidine Allergy Intermediate Swelling Verified 05/11/17 03:42 Of Face,Lips,& Throat Tricyclic Compounds Allergy Intermediate Altered Verified 05/11/17 04:18 Mental Status hydromorphone Allergy Mild See Comment Verified 05/11/17 04:18 ibuprofen Allergy Mild Rash And Verified 05/11/17 03:42 Itching itraconazole Allergy Mild Rash Verified 05/11/17 03:42 lanolin Allergy Mild Rash Verified 05/11/17 03:42 milnacipran Allergy Mild Rash And Verified 05/11/17 04:18 Itching mometasone furoate Allergy Mild Headache Verified 05/11/17 04:18 naloxone Allergy Mild Headache Verified 05/11/17 04:18 ondansetron Allergy Mild Headache Verified 05/11/17 04:18 oxycodone Allergy Mild Palpitation Verified 05/11/17 04:18 s oxymorphone Allergy Mild Palpitation Verified 05/11/17 04:18 s Penicillins Allergy Mild Rash Verified 05/11/17 03:42 pentazocine Allergy Mild Palpitation Verified 05/11/17 04:18 s propoxyphene Allergy Mild Rash Verified 05/11/17 03:42 sulfasalazine Allergy Mild Rash Verified 05/11/17 03:42 talc Allergy Mild Rash Verified 05/11/17 03:42 tramadol Allergy Mild Muscle Ache Verified 05/11/17 04:18 trazodone Allergy Mild Insomnia Verified 05/11/17 04:18 acetaminophen Allergy Unknown Unknown Verified 05/11/17 04:18 Reaction Details Adhesive Tape Allergy Unknown Unknown Verified 05/11/17 04:18 Reaction Details alprazolam Allergy Unknown Unknown Verified 05/11/17 04:18 Reaction Details amitriptyline Allergy Unknown Unknown Verified 05/11/17 04:18 Reaction Details aspirin Allergy Unknown Unknown Verified 05/11/17 04:18 Reaction Details cefaclor Allergy Unknown Unknown Verified 05/11/17 04:18 Reaction Details clarithromycin Allergy Unknown Unknown Verified 05/11/17 04:18 Reaction Details codeine Allergy Unknown Unknown Verified 05/11/17 04:18 Reaction Details desipramine Allergy Unknown Unknown Verified 05/11/17 04:18 Reaction Details diazepam Allergy Unknown Unknown Verified 05/11/17 04:18 Reaction Details diphenhydramine Allergy Unknown Unknown Verified 05/11/17 04:18 Reaction Details doxepin Allergy Unknown Unknown Verified 05/11/17 04:18 Reaction Details doxycycline Allergy Unknown Unknown Verified 05/11/17 04:18 Reaction Details duloxetine Allergy Unknown Unknown Verified 05/11/17 04:18 Reaction Details fentanyl Allergy Unknown See Comment Verified 05/11/17 04:18 fluoxetine Allergy Unknown Unknown Verified 05/11/17 04:18 Reaction Details gabapentin Allergy Unknown See Comment Verified 05/11/17 04:18 hydrocortisone Allergy Unknown Unknown Verified 05/11/17 04:18 Reaction Details hydroxychloroquine Allergy Unknown Unknown Verified 05/11/17 04:18 Reaction Details naproxen Allergy Unknown Unknown Verified 05/11/17 04:18 Reaction Details paroxetine Allergy Unknown Unknown Verified 05/11/17 04:18 Reaction Details Perfume [Fragrance] AdvReac Mild Coughing Verified 05/11/17 01:03 ALL MELONS Allergy Severe Anaphylatic Uncoded 05/11/17 01:03 Shock APPLE AND GRAPE JUICE Allergy Severe Anaphylatic Uncoded 05/11/17 01:03 Shock BLACK PEPPER Allergy Intermediate HIVES, Uncoded 05/11/17 01:03 TROUBLE BREATHING, ITCHING, BAD STOMACH PAIN MILK Allergy Intermediate HIVES, Uncoded 05/11/17 01:03 STOMACH PAIN, TROUBLE BREATING RAW ONIONS Allergy Intermediate TROUBLE Uncoded 05/11/17 01:03 BREATHING, HIVES VINEGAR Allergy Intermediate TROUBLE Uncoded 05/11/17 01:03 BREATHING APPLESAUCE Allergy Mild Edema Uncoded 05/11/17 01:03 ENVRIONMENTAL Allergy Mild Sneezing Uncoded 05/11/17 01:03 chlorine Allergy Unknown Unknown Uncoded 05/11/17 04:18 Reaction Details CI pigment blue 63 Allergy Unknown Unknown Uncoded 05/11/17 04:18 Reaction Details PEPPERS Allergy Unknown Unknown Uncoded 05/11/17 04:18 Reaction Details BANDAIDS AdvReac Mild Blisters Uncoded 05/11/17 01:03 CIGARETTE SMOKE AdvReac Mild Airway Uncoded 05/11/17 01:03 Obstruction ICEBERG LETTUCE AdvReac Mild Stomach Uncoded 05/11/17 01:03 Cramps Objective - Vital Signs Vital Signs: Vital Signs 05/14/17 05/14/17 05/14/17 09:45 11:50 15:50 Temperature 98.1 F Pulse Rate 62 Respiratory 18 18 16 Rate Blood Pressure 123/58 (mmHg) O2 Sat by Pulse 93 Oximetry 05/14/17 05/14/17 05/14/17 17:57 20:07 20:18 Temperature 98.4 F Pulse Rate 69 Respiratory 18 20 20 Rate Blood Pressure 123/68 (mmHg) O2 Sat by Pulse 97 Oximetry 05/14/17 05/14/17 05/14/17 20:24 20:25 23:29 Temperature 97.9 F Pulse Rate 64 Respiratory 20 20 18 Rate Blood Pressure 139/72 (mmHg) O2 Sat by Pulse 96 Oximetry 05/15/17 05/15/17 05/15/17 01:01 02:26 02:27 Temperature 97.6 F Pulse Rate 65 Respiratory 20 18 20 Rate Blood Pressure 159/79 (mmHg) O2 Sat by Pulse 100 Oximetry 05/15/17 05/15/17 06:38 08:44 Temperature Pulse Rate Respiratory 20 20 Rate Blood Pressure (mmHg) O2 Sat by Pulse Oximetry - Intake and Output Intake and Output: Intake & Output 05/12/17 05/13/17 05/14/17 05/15/17 11:59 11:59 11:59 11:59 Intake Total 3404.2 1288 1960 1300 Output Total 250 7700 2423 3250 Balance 3154.2 -6412 -463 -1950 Weight 174 lb 13.225 oz 168 lb 8 oz 162 lb 6.4 oz 162 lb 6.4 oz Intake: IV Fluids 2776 58 KCL 270 NS (0.9%) 2506 58 Medicated IV 28.2 CC - Insulin 28.2 Oral 600 1230 1960 1300 Output: Urine 250 7700 2423 3250 Other: Estimated Void Medium Medium Medium Medium Date of Last Bowel 05/14/17 Movement # Bowel Movements 0 1 0 Estimated Stool Amount Medium Small # Voids 2 2 0 1 ADLs: Meal Record Start: 05/11/17 02: 56 Freq: ,,18 Status: Complete Protocol: Document 05/11/17 08:46 [id number] (Rec: 05/11/17 08:46 [id number] ICU-C07) Document 05/11/17 13:00 [id number] (Rec: 05/11/17 13:15 [id number] ICU-C07) Document 05/11/17 18:00 [id number] (Rec: 05/11/17 19:02 [id number] ICU-C07) ADLs: Meal Record Start: 05/12/17 11: 59 Freq: DAILY@0900,1400,1800 Status: Active Protocol: Created 05/12/17 11:59 [id number] (Rec: 05/12/17 11:59 [id number] ICU-C07) Document 05/12/17 14:00 [id number] (Rec: 05/12/17 14:56 [id number] MED-C04) Document 05/12/17 18:00 [id number] (Rec: 05/12/17 18:55 [id number] MED-C11) Document 05/13/17 09:00 [id number] (Rec: 05/13/17 09:59 [id number] MED-C11) Document 05/13/17 13:24 [id number] (Rec: 05/13/17 13:25 [id number] MED-C11) Document 05/13/17 18:00 [id number] (Rec: 05/13/17 18:21 [id number] MED-M01) Document 05/14/17 09:00 [id number] (Rec: 05/14/17 12:46 [id number] MED-C11) Document 05/14/17 13:36 [id number] (Rec: 05/14/17 13:36 [id number] MED-C11) Document 05/14/17 18:00 [id number] (Rec: 05/14/17 18:09 [id number] MED-C11) Intake and Output Start: 05/11/17 02: 56 Freq: 06,14,22 Status: Complete Protocol: Document 05/11/17 05:25 [id number] (Rec: 05/11/17 05:25 [id number] ICU-C20) Document 05/11/17 14:00 [id number] (Rec: 05/11/17 14:25 [id number] ICU-M12) Document 05/11/17 22:00 [id number] (Rec: 05/12/17 02:41 [id number] ICU-C07) Document 05/12/17 06:00 [id number] (Rec: 05/12/17 06:54 [id number] ICU-C07) Intake and Output Start: 05/12/17 11: 59 Freq: DAILY@0600,1400,2200 Status: Active Protocol: Created 05/12/17 11:59 [id number] (Rec: 05/12/17 11:59 [id number] ICU-C07) Document 05/12/17 14:00 [id number] (Rec: 05/12/17 14:56 [id number] MED-C04) Document 05/12/17 20:46 [id number] (Rec: 05/12/17 20:46 [id number] MED-C11) Document 05/13/17 03:26 [id number] (Rec: 05/13/17 03:26 [id number] MED-C11) Document 05/13/17 06:00 [id number] (Rec: 05/13/17 06:48 [id number] MED-C11) Document 05/13/17 09:50 [id number] (Rec: 05/13/17 09:50 [id number] MED-C11) Document 05/13/17 10:28 [id number] (Rec: 05/13/17 10:29 [id number] MED-C11) Document 05/13/17 11:10 [id number] (Rec: 05/13/17 11:10 [id number] MED-C11) Document 05/13/17 14:00 [id number] (Rec: 05/13/17 14:05 [id number] MED-C11) Document 05/13/17 22:00 [id number] (Rec: 05/13/17 22:18 [id number] MED-C07) Document 05/14/17 06:00 [id number] (Rec: 05/14/17 06:23 [id number] MED-C07) Document 05/14/17 10:51 [id number] (Rec: 05/14/17 10:51 [id number] MED-C15) Document 05/14/17 14:00 [id number] (Rec: 05/14/17 14:39 [id number] MED-C11) Document 05/14/17 16:59 [id number] (Rec: 05/14/17 16:59 [id number] MED-C07) Document 05/14/17 22:00 [id number] (Rec: 05/14/17 23:51 [id number] MED-C09) Document 05/15/17 05:52 [id number] (Rec: 05/15/17 05:53 [id number] MED-C16) Results - Results Lab Results: Laboratory Results - last 24 hr 05/14/17 05/14/17 05/14/17 11:44 16:37 20:28 POC Glucose (mg/dL) 246 H 185 H 151 H 05/15/17 07:56 POC Glucose (mg/dL) 200 H Assessment - Problem List Assessment: Patient Problems Acute pancreatitis (Acute) Autoimmune disease (Acute) Hyperosmolar non-ketotic state in patient with type 2 diabetes mellitus (Acute) Chronic pain syndrome (Chronic) Diverticulosis (Chronic) Fibromyalgia (Chronic) GERD (gastroesophageal reflux disease) (Chronic) History of cholecystectomy (Chronic) Multiple drug allergies (Chronic) Opioid dependence (Chronic) Polypharmacy (Chronic) Psychosocial impairment (Chronic) Status post laparoscopic cholecystectomy (Chronic) Type 2 diabetes, uncontrolled, with neuropathy (Chronic) Arthritis (Acute) Diabetes mellitus (Acute) Thyroid nodule (Acute) Plan: Opioid dependence (Chronic) Multiple drug allergies (Chronic) Chronic pain syndrome (Chronic) She has declined further hydromorphone - will only use brand. She states she is not mobile enough to go home. I spoke with pharmacy - they will give permission under these particular circumstances to bring in her own supply of dilaudid brand. 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 Type 2 diabetes mellitus: I appreciate the consultation by Britney Tang NP. She is ready for discharge. I spoke to the patient and told her that she is ready for discharge. I hope with brand dilaudid she will feel improved enough to leave this afternoon.
[2017-05-15] MEDS: Baclofen TAB* 20 MG PO SCH ×3 (09:49→17:47)
[2017-05-15] MEDS: SUMAtriptan SQ* 6 MG/0.5 ML VIAL SUBCUT PRN (14:53)
[2017-05-15 15:55] VITALS: BP 135/61
[2017-05-15] MEDS ORDERED: HYDROMORPHONE 8 MG PO ONE (16:00)
== END 2017-05-15 18:45 | disposition home or self-care (01) | DRG 438 ==
LOC: ED 21:06 → ICU 05-11 01:30 → MED 05-12 12:40
PROVIDERS: ADMIT Pediatrics; ATTEND Internal Medicine
DX: K85.90 Acute pancreatitis without necrosis or infection, unspecified (principal); E11.00 Type 2 diabetes mellitus with hyperosmolarity without nonketotic hyperglycemic-hyperosmolar coma (NKHHC); F11.20 Opioid dependence, uncomplicated; D89.89 Other specified disorders involving the immune mechanism, not elsewhere classified; G89.4 Chronic pain syndrome; K57.90 Diverticulosis of intestine, part unspecified, without perforation or abscess without bleeding; M79.7 Fibromyalgia; K21.9 Gastro-esophageal reflux disease without esophagitis; E11.65 Type 2 diabetes mellitus with hyperglycemia; E11.40 Type 2 diabetes mellitus with diabetic neuropathy, unspecified; K59.00 Constipation, unspecified; F60.81 Narcissistic personality disorder; Z87.891 Personal history of nicotine dependence; Z82.49 Family history of ischemic heart disease and other diseases of the circulatory system; Z84.89 Family history of other specified conditions; Z82.61 Family history of arthritis; Z80.0 Family history of malignant neoplasm of digestive organs
CPT/HCPCS: 36415; 70450; 71045; 74177; 76705; 80048; 80053; 81003; 81015; 82150; 82803; 82947; 83036; 83605; 83690; 83735; 84100; 84484; 85025; 85027; 86140; 87040; 87077; 87086; 87186; 87502; 93005; 94760; 99284; A9270-GY; G8978-GP-CJ; G8979-GP-CI; G8987-GO-CM; G8988-GO-CL; J0780; J1170; J1644; J1815; J2405; J2930; J3030; J3480; Q9967

== ENCOUNTER 2017-05-21 11:44 | Emergency (ER) | payer MEDICARE, MEDICAID ==
[2017-05-21] MEDS ORDERED: diPHENhydraMINE IV* 25 MG in NS 0.9% 50 ML* 50 ML IVPB ONE (12:21)
[2017-05-21] MEDS ORDERED: Famotidine IV * 20 MG in NS 0.9% 100 ML* 100 ML IV ONE (12:21)
[2017-05-21] MEDS ORDERED: Dexamethasone IV* 10 MG in NS 0.9% 50 ML* 50 ML IVPB ONE (12:24)
[2017-05-21 13:08] LABS: ABS Basophils 0.1 10^3/ul (0-0.2); ABS Eosinophils 0.2 10^3/ul (0-0.6); ABS Lymphocytes 4.9 10^3/ul (1.0-4.8); ABS Monocytes 0.9 10^3/ul (0-0.8); ABS Neutrophils 8.3 10^3/ul (1.5-7.7); ABS Nucleated RBC 0 10^3/ul; Eosinophil % 1.3 % (0-6); Hematocrit 38 % (35-47); Hemoglobin 12.5 g/dl (12.0-16.0); Lymphocyte % 34.1 % (25-47); Mean Corpuscular HGB Conc 33 g/dl (31-36); Mean Corpuscular Hemoglobin 28 pg (27-31); Mean Corpuscular Volume 85 fL (80-97); Mean Platelet Volume 7.6 um3 (7.4-10.4); Nucleated Red Blood Cells % 0; Platelet Count 295 10^3/ul (150-450); Red Blood Count 4.44 10^6/ul (4.0-5.4); Red Cell Distribution Width 20 % (10.5-15); White Blood Count 14.3 10^3/ul (3.5-10.8)
[2017-05-21] MEDS ORDERED: Dexamethasone IV* 4 MG/ML 5 ML VIAL (20 MG) ONE (13:17)
[2017-05-21] MEDS ORDERED: Famotidine IV* 10 MG/ML 2 ML (20 mg) ONE (13:17)
[2017-05-21] MEDS ORDERED: diPHENhydraMINE IV* 50 MG/ML 1 ml VIAL (BENADRYL) ONE (13:17)
[2017-05-21 13:23] LABS: EGFR Non-African American 59.2 (>60)
[2017-05-21] MEDS ORDERED: Famotidine IV* 10 MG/ML 2 ML (20 mg) IV SLOW PU ONE (13:27)
[2017-05-21] MEDS ORDERED: diPHENhydraMINE IV* 50 MG/ML 1 ml VIAL (BENADRYL) SLOW PUSH ONE (13:27)
[2017-05-21] MEDS ORDERED: Dexamethasone IV* 4 MG/ML 1 ML (4 MG) ONE (13:37)
[2017-05-21] MEDS ORDERED: Dexamethasone IV* 4 MG/ML 1 ML (4 MG) IV SLOW PU ONE (13:39)
[2017-05-21] MEDS ORDERED: oxyCODONE SR TAB(*) 10 MG TAB.SR PO ONE (13:50)
--- NOTE | 2017-05-21 14:01 | RAD ---
HISTORY: Chest tightness COMPARISONS: May 10, 2017 VIEWS: 1: frontal portable view of the chest at 1:40 PM FINDINGS: LINES AND TUBES: None. CARDIOMEDIASTINAL SILHOUETTE: The cardiomediastinal silhouette is normal for portable technique. PLEURA: The costophrenic angles are sharp. No pleural abnormalities are noted. LUNG PARENCHYMA: The lungs are clear. ABDOMEN: The upper abdomen is clear. There is no subphrenic gas. BONES AND SOFT TISSUES: No bone or soft tissue abnormalities are noted. IMPRESSION: NO ACTIVE CARDIOPULMONARY DISEASE.
[2017-05-21 15:15] VITALS: BP 143/83
--- NOTE | 2017-05-21 21:08 | ED ---
Joya Starks Nilda, scribed for Olimpia Mejia MD on 05/21/17 at 1208 . Allergic Reaction/Systemic - HPI Summary HPI Summary: This patient is a 66 year old F presenting to [facility] with a chief complaint of constant severe generalized pain for the past 5 days. The patient rates the pain 10/10 in severity. Symptoms aggravated by medication change and alleviated by nothing. Patient reports nausea, chest tightness, burning rash in bilat thigh, insomnia secondary to pain, and V/D (yesterday). She denies fever and chills. Medications include Dilaudid for pain secondary to undiagnosed autoimmune disease but due to insurance issues pt was recently switched to Hydromorphone which she is allergic to. Pt states she last took Hydromorphone on 05/18/17. Pt states shes seeing Dr. Lowe and Dr. Guidry for her pain. - History of Current Complaint Chief Complaint: EDAllergicReaction Time Seen by Provider: 05/21/17 11:54 Hx Obtained From: Patient Onset/Duration: Sudden Onset, Started days ago, Still Present Timing: Constant Severity Currently: Severe Pain Intensity: 10 Pain Scale Used: 0-10 Numeric Character: Pain Aggravating Factor(s): Other - change in medication (hydromorphone) Alleviating Factor(s): Nothing Associated Signs And Symptoms: Positive: Other: - reports nausea, chest tightness, burning rash in bilat thigh, insomnia secondary, V/D (yesterday). She denies fever and chills. - Allergies/Home Medications Allergies/Adverse Reactions: Allergies Allergy/AdvReac Type Severity Reaction Status Date / Time cortisone Allergy Severe Difficulty Verified 05/11/17 03:42 Breathing methylprednisolone Allergy Severe Difficulty Verified 05/11/17 03:42 Breathing latex Allergy Intermediate Itching Verified 05/11/17 03:42 methylparaben Allergy Intermediate Pain Verified 05/11/17 04:18 morphine Allergy Intermediate Hallucinati Verified 05/11/17 04:18 ons piroxicam Allergy Intermediate Pain Verified 05/11/17 04:18 sulindac Allergy Intermediate See Comment Verified 05/11/17 04:18 tizanidine Allergy Intermediate Swelling Verified 05/11/17 03:42 Of Face,Lips,& Throat Tricyclic Compounds Allergy Intermediate Altered Verified 05/11/17 04:18 Mental Status hydromorphone Allergy Mild See Comment Verified 05/11/17 04:18 ibuprofen Allergy Mild Rash And Verified 05/11/17 03:42 Itching itraconazole Allergy Mild Rash Verified 05/11/17 03:42 lanolin Allergy Mild Rash Verified 05/11/17 03:42 milnacipran Allergy Mild Rash And Verified 05/11/17 04:18 Itching mometasone furoate Allergy Mild Headache Verified 05/11/17 04:18 naloxone Allergy Mild Headache Verified 05/11/17 04:18 ondansetron Allergy Mild Headache Verified 05/11/17 04:18 oxycodone Allergy Mild Palpitation Verified 05/11/17 04:18 s oxymorphone Allergy Mild Palpitation Verified 05/11/17 04:18 s Penicillins Allergy Mild Rash Verified 05/11/17 03:42 pentazocine Allergy Mild Palpitation Verified 05/11/17 04:18 s propoxyphene Allergy Mild Rash Verified 05/11/17 03:42 sulfasalazine Allergy Mild Rash Verified 05/11/17 03:42 talc Allergy Mild Rash Verified 05/11/17 03:42 tramadol Allergy Mild Muscle Ache Verified 05/11/17 04:18 trazodone Allergy Mild Insomnia Verified 05/11/17 04:18 acetaminophen Allergy Unknown Unknown Verified 05/11/17 04:18 Reaction Details Adhesive Tape Allergy Unknown Unknown Verified 05/11/17 04:18 Reaction Details alprazolam Allergy Unknown Unknown Verified 05/11/17 04:18 Reaction Details amitriptyline Allergy Unknown Unknown Verified 05/11/17 04:18 Reaction Details aspirin Allergy Unknown Unknown Verified 05/11/17 04:18 Reaction Details cefaclor Allergy Unknown Unknown Verified 05/11/17 04:18 Reaction Details clarithromycin Allergy Unknown Unknown Verified 05/11/17 04:18 Reaction Details codeine Allergy Unknown Unknown Verified 05/11/17 04:18 Reaction Details desipramine Allergy Unknown Unknown Verified 05/11/17 04:18 Reaction Details diazepam Allergy Unknown Unknown Verified 05/11/17 04:18 Reaction Details diphenhydramine Allergy Unknown Unknown Verified 05/11/17 04:18 Reaction Details doxepin Allergy Unknown Unknown Verified 05/11/17 04:18 Reaction Details doxycycline Allergy Unknown Unknown Verified 05/11/17 04:18 Reaction Details duloxetine Allergy Unknown Unknown Verified 05/11/17 04:18 Reaction Details fentanyl Allergy Unknown See Comment Verified 05/11/17 04:18 fluoxetine Allergy Unknown Unknown Verified 05/11/17 04:18 Reaction Details gabapentin Allergy Unknown See Comment Verified 05/11/17 04:18 hydrocortisone Allergy Unknown Unknown Verified 05/11/17 04:18 Reaction Details hydroxychloroquine Allergy Unknown Unknown Verified 05/11/17 04:18 Reaction Details naproxen Allergy Unknown Unknown Verified 05/11/17 04:18 Reaction Details paroxetine Allergy Unknown Unknown Verified 05/11/17 04:18 Reaction Details Perfume [Fragrance] AdvReac Mild Coughing Verified 05/11/17 01:03 ALL MELONS Allergy Severe Anaphylatic Uncoded 05/11/17 01:03 Shock APPLE AND GRAPE JUICE Allergy Severe Anaphylatic Uncoded 05/11/17 01:03 Shock BLACK PEPPER Allergy Intermediate HIVES, Uncoded 05/11/17 01:03 TROUBLE BREATHING, ITCHING, BAD STOMACH PAIN MILK Allergy Intermediate HIVES, Uncoded 05/11/17 01:03 STOMACH PAIN, TROUBLE BREATING RAW ONIONS Allergy Intermediate TROUBLE Uncoded 05/11/17 01:03 BREATHING, HIVES VINEGAR Allergy Intermediate TROUBLE Uncoded 05/11/17 01:03 BREATHING APPLESAUCE Allergy Mild Edema Uncoded 05/11/17 01:03 ENVRIONMENTAL Allergy Mild Sneezing Uncoded 05/11/17 01:03 chlorine Allergy Unknown Unknown Uncoded 05/11/17 04:18 Reaction Details CI pigment blue 63 Allergy Unknown Unknown Uncoded 05/11/17 04:18 Reaction Details PEPPERS Allergy Unknown Unknown Uncoded 05/11/17 04:18 Reaction Details BANDAIDS AdvReac Mild Blisters Uncoded 05/11/17 01:03 CIGARETTE SMOKE AdvReac Mild Airway Uncoded 05/11/17 01:03 Obstruction ICEBERG LETTUCE AdvReac Mild Stomach Uncoded 05/11/17 01:03 Cramps Home Medications: Home Medications Alpha Lipoic Acid 200 mg PO BID 05/21/17 [History Confirmed 05/21/17] Ascorbic Acid TAB* [Vitamin C TAB*] 500 mg PO DAILY 05/21/17 [History Confirmed 05/21/17] Brimonidine Tartrate [Mirvaso] 30 gm TOPICAL DAILY PRN 05/21/17 [History Confirmed 05/21/17] Clobetasol 0.05% OINT* 1 applic TOPICAL BID 05/21/17 [History Confirmed 05/21/17 ] Clotrimazole/Betamethasone* [Lotrisone Cream*] 1 applic TOPICAL BID 05/21/17 [ History Confirmed 05/21/17] Estradiol (NF) 1 mg PO QAM 05/21/17 [History Confirmed 05/21/17] Insulin GLARGINE(*) [Lantus(*)] 47 units SUBCUT BEDTIME 05/21/17 [History Confirmed 05/21/17] Insulin LISPRO* [HumaLOG*] 2 - 10 units SUBCUT QID 05/21/17 [History Confirmed 05/21/17] Magnesium CITRATE* [Citrate of Magnesia*] 6 ml PO BID 05/21/17 [History Confirmed 05/21/17] Methotrexate* 0.5 ml SUBCUT .Thursdays05/21/17 [History Confirmed 05/21/17] Metronidazole (TOPICAL)(NF) [Metrocream (NF)] 1 applic TOPICAL BID 05/21/17 [ History Confirmed 05/21/17] Milk Thistle Seed Extract [Milk Thistle Extract] 70 mg PO DAILY 05/21/17 [ History Confirmed 05/21/17] Potassium Chlor TAB* [Klor Con ER TAB 10 MEQ*] 10 meq PO BID 05/21/17 [History Confirmed 05/21/17] SUMAtriptan SQ* [Imitrex SQ*] 6 mg SUBCUT DAILY PRN 05/21/17 [History Confirmed 05/21/17] SUMAtriptan TAB* [Imitrex TAB*] 100 mg PO DAILY PRN 05/21/17 [History Confirmed 05/21/17] oxyCODONE SR TAB(*) [Oxycontin 10 mg (*)] 10 mg PO Q12HR 05/21/17 [History Confirmed 05/21/17] PMH/Surg Hx/FS Hx/Imm Hx Endocrine/Hematology History: Reports: Hx Diabetes Denies: Hx Systemic Lupus Erythematosus, Hx Anemia Cardiovascular History: Reports: Hx Hypercholesterolemia, Hx Hypertension - ON MEDICATION FOR, Other Cardiovascular Problems/Disorders - SUPERIOR VENA CAVA [id number]. [facility] Denies: Hx Congestive Heart Failure - superior vena cava syndrome, Hx Pacemaker/ICD Respiratory History: Reports: Hx Asthma GI History: Reports: Hx Gastroesophageal Reflux Disease - ON MEDICATION FOR, Hx Hiatal Hernia, Other GI Disorders - HX DIVERTICULOSIS Denies: Hx Jaundice History: Denies: Hx Dialysis, Hx Renal Disease Musculoskeletal History: Reports: Hx Arthritis - OSTEO, Hx Osteoporosis, Hx Tendonitis - WRISTS AND ELBOWS, Other Musculoskeletal History - DEGEN DISC DISEASE; chronic pain Denies: Hx Rheumatoid Arthritis - myeloradicular neurapathy Sensory History: Reports: Hx Cataracts - BILAT, Hx Contacts or Glasses - READING GLASSES Denies: Hx Hearing Aid Opthamlomology History: Reports: Hx Cataracts - BILAT, Hx Contacts or Glasses - READING GLASSES Neurological History: Reports: Hx Headaches, Hx Migraine - 2-3 TIMES PER WEEK- TREATS WITH IMITREX, Other Neuro Impairments/Disorders - multiple sclerosis, FIBROMYALGIA, MYELORADICULAR NEUROPATHY Psychiatric History: Reports: Hx Depression - MILD Denies: Hx Panic Disorder - Cancer History Hx Chemotherapy: No - Surgical History Surgery Procedure, Year, and Place[place] [facility] [place] [facility] [place] BOWEL RESECTION, COLOSTOMY 1993. [place] [facility] [place] [facility] [place] LAP CRISTIAN WITH INFUSAPORT REMOVAL [place] [facility] [place] APPY REMOVAL OF RIGHT OVARIAN CYST AND RESECTION 1968. T&A. DEVIATED SEPTUM REPAIR. SINUS SURG[place] 2006 [facility] [place]. 2015- LEFT EYE CATARACT REMOVED Hx Anesthesia Reactions: No - Immunization History Date of Influenza Vaccine: hsa not received Infectious Disease History: No Infectious Disease History: Reports: Hx Hepatitis - "medical"- only while taking a medication-states no longer takes, name unkn Denies: Traveled Outside the [place] in Last 30 Days - Family History Known Family History: Positive: Other - Breast CA; anasthesia reaction Negative: Cardiac Disease - Social History Lives: Assisted Living Alcohol Use: None Hx Substance Use: No Substance Use Type: Reports: None Hx Tobacco Use: Yes Smoking Status (MU): Former Smoker Type: Cigarettes Amount Used/How Often: 4 PPD X 15 YEARS Length of Time of Smoking/Using Tobacco: 20 YRS Have You Smoked in the Last Year: No Review of Systems Negative: Fever, Chills Positive: Chest Pain - chest tightness Positive: Vomiting, Diarrhea, Nausea Positive: Other - generalized pain Positive: Rash - burning, bilat thigh Neurological: Other - insomnia secondary to pain All Other Systems Reviewed And Are Negative: Yes Physical Exam - Summary Physical Exam Summary: GENERAL: Patient is a well developed and nourished F who is restless in the stretcher. Patient is not in any acute respiratory distress. HEAD AND FACE: Normocephalic EYES: PERRLA, EOMI x 2. EARS: Hearing grossly intact. MOUTH: Oropharynx within normal limits.Uvula is midline and unswollen. NECK: Supple, trachea is midline, no adenopathy, no JVD, no carotid bruit. CHEST: Symmetric, no tenderness at palpation LUNGS: Clear to auscultation bilaterally. No wheezing or crackles. CVS: Regular rate and rhythm, S1 and S2 present, no murmurs or gallops appreciated. ABDOMEN: Soft, non-tender. Bowel sounds are normal. No abdominal abnormal pulsations. EXTREMITIES: Full ROM in all major joints, no edema, no cyanosis or clubbing. NEURO: Alert and oriented x 3. No acute neurological deficits. Speech is normal and follows commands. SKIN: Dry and warm, Bilat interior thigh has blanching, erythematous rash. Triage Information Reviewed: Yes Vital Signs On Initial Exam: Initial Vitals Temp Pulse Resp BP Pulse Ox 98.6 F 92 16 151/70 96 05/21/17 11:51 05/21/17 11:51 05/21/17 11:51 05/21/17 11:51 05/21/17 11:51 Vital Signs Reviewed: Yes Diagnostics - Vital Signs Vital Signs Temp Pulse Resp BP Pulse Ox 05/21/17 11:51 98.6 F 92 16 151/70 96 - Laboratory Result Diagrams: 05/21/17 12:58 05/21/17 12:58 Lab Statement: Any lab studies that have been ordered have been reviewed, and results considered in the medical decision making process. - Radiology CXR Radiology Interpretation Completed By: Radiologist - CXR reveals no active cardiopulmonary disease. Dr. Mejia has reviewed this radiology report. - EKG 1301 Cardiac Rate: NL EKG Rhythm: Sinus Rhythm - 81 bpm EKG Interpretation: nml intervals Re-Evaluation - Re-Evaluation First Eval Re-Evaluation Time: 14:37 Change: Improved Comment: Pt is much improved. She is no longer restless. Rash in bilat thighs are much improved as well. Allergic Reaction Course/Dx - Course Assessment/Plan: This patient is a 66 year old F presenting to [facility] with a chief complaint of constant severe generalized pain for the past 5 days. The patient rates the pain 10/10 in severity. Symptoms aggravated by medication change and alleviated by nothing. Patient reports nausea, chest tightness, burning rash in bilat thigh, insomnia secondary to pain, and V/D (yesterday). She denies fever and chills. Medications include Dilaudid for undiagnosed autoimmune disease but due to insurance issues pt was recently switched to Hydromorphone which she is allergic to. Pt states she last took Hydromorphone on 05/18/17. Pt states shes seeing Dr. Lowe and Dr. Guidry for her pain. Upon re-eval, pt is much improved and is no longer restless. I reviewed the labs and she does have leukocytosis with a white count of 14, but its similar to previous labs. CXR unremarkable. I discussed the results with the pt in great detail. She is hemodynamically stable and is safe for D/C home with strict return precautions. She will otherwise f/u with PCP. Pt will be sent home with Benadryl, prednisone. Pt understands and is agreeable with this plan. - Diagnoses Provider Diagnoses: Rash Discharge - Sign-Out/Discharge Documenting (check all that apply): Discharge - home - Discharge Plan Condition: Improved Disposition: HOME Prescriptions: diPHENhydraMINE PO* [Benadryl PO 25 MG TAB*] 25 mg PO Q6H PRN #20 tab PRN Reason: Hives EPINEPHrine [Epipen 2-Justin] 0.3 mg IM ONCE PRN #1 auto.injct PRN Reason: anaphylaxis predniSONE TAB* [Deltasone TAB*] 40 mg PO DAILY #8 tab Patient Education Materials: Acute Rash (ED) Referrals: Anila Saul MD [Primary Care Provider] - 3 Days Additional Instructions: RETURN TO THE EMERGENCY DEPARTMENT FOR CHANGING OR WORSENING SYMPTOMS. The documentation as recorded by the Joya mayer Nilda accurately reflects the service I personally performed and the decisions made by me, Zach Mejia MD.
== END 2017-05-21 15:14 | disposition home or self-care (01) ==
LOC: ED 11:44
DX: R21 Rash and other nonspecific skin eruption (principal); R11.0 Nausea; R07.89 Other chest pain; G47.00 Insomnia, unspecified; E11.9 Type 2 diabetes mellitus without complications; Z79.4 Long term (current) use of insulin; Z79.84 Long term (current) use of oral hypoglycemic drugs; E78.00 Pure hypercholesterolemia, unspecified; I10 Essential (primary) hypertension; J45.909 Unspecified asthma, uncomplicated; K21.9 Gastro-esophageal reflux disease without esophagitis; K44.9 Diaphragmatic hernia without obstruction or gangrene; K57.90 Diverticulosis of intestine, part unspecified, without perforation or abscess without bleeding; G43.909 Migraine, unspecified, not intractable, without status migrainosus; F32.9 Major depressive disorder, single episode, unspecified; Z88.6 Allergy status to analgesic agent; Z88.1 Allergy status to other antibiotic agents; Z91.040 Latex allergy status; Z88.5 Allergy status to narcotic agent; Z88.0 Allergy status to penicillin; Z88.8 Allergy status to other drugs, medicaments and biological substances; Z91.048 Other nonmedicinal substance allergy status; Z87.891 Personal history of nicotine dependence
CPT/HCPCS: 36415; 71045; 80053; 84484; 85025; 93005; 96374; 96375; 99282; J1100; J1200

== ENCOUNTER 2017-05-29 16:36 | Observation (INO) | payer MEDICARE, MEDICAID ==
[2017-05-29] MEDS ORDERED: Dextrose 50% Syringe 50 ML* 25 GM/50 ML SYRINGE IV PUSH PRN (18:08)
[2017-05-29] MEDS ORDERED: IPRATROPIUM BROMIDE 0.06% NASAL PRN (18:23)
[2017-05-29] MEDS ORDERED: Ondansetron TAB* 4 MG PO PRN (18:27)
[2017-05-29] MEDS ORDERED: HYDROmorphone TAB* 4 MG PO PRN (19:07)
[2017-05-29] MEDS ORDERED: SUMAtriptan TAB* 100 MG PO PRN (19:08)
[2017-05-29 20:21] LABS: Hematocrit 38 % (35-47); Hemoglobin 12.4 g/dl (12.0-16.0); Mean Corpuscular HGB Conc 33 g/dl (31-36); Mean Corpuscular Hemoglobin 28 pg (27-31); Mean Corpuscular Volume 87 fL (80-97); Mean Platelet Volume 7.1 um3 (7.4-10.4); Platelet Count 170 10^3/ul (150-450); Red Blood Count 4.39 10^6/ul (4.0-5.4); Red Cell Distribution Width 21 % (10.5-15); White Blood Count 7.3 10^3/ul (3.5-10.8)
[2017-05-29 20:37] LABS: EGFR Non-African American 71.3 (>60)
[2017-05-29] MEDS: oxyCODONE SR TAB(*) 10 MG TAB.SR PO SCH (21:44)
[2017-05-29] MEDS: Baclofen TAB* 20 MG PO SCH (22:16)
[2017-05-29] MEDS: Azelastine 0.15% NASAL(NF) 30 ML BTL BOTH NARES SCH (22:16)
[2017-05-29] MEDS: metFORMIN* 1,000 MG TAB PO SCH (22:16)
[2017-05-29] MEDS: Insulin LISPRO* 1 UNITS UNIT SUBCUT SCH (22:16)
[2017-05-29] MEDS: Insulin GLARGINE(*) 1 UNITS UNIT SUBCUT SCH (22:17)
[2017-05-29] MEDS: ALPHA LIPOIC ACID 100 MG PO SCH (22:18)
[2017-05-29] MEDS: OMEGA-3 FATTY ACIDS (NF) 1,000 MG CAP PO SCH (22:18)
[2017-05-29] MEDS: HYDROmorphone INJ* 2 MG/ML CARPUJECT SYRINGE IV PRN (23:09)
--- NOTE | 2017-05-30 01:59 | HP ---
HISTORY AND PHYSICAL: DATE OF ADMISSION: 05/29/17 HISTORY OF PRESENT ILLNESS: Keila Brown is a 66-year-old woman admitted for weakness, difficulty functioning at home. The patient had been admitted here on 05/15/17. At that time, she came into the hospital with uncontrolled diabetes, pancreatitis. She was in intensive care. She had acute diabetic hyperosmolar hyperglycemic syndrome. She had not been taking her insulin properly. She accepted diabetes education during her hospitalization and had a psychiatric nurse practitioner consultation. She was concerned about going home. She has chronic pain. She was concerned about being able to manage, but did agree to go home. She came in today for a hospital followup. In the meantime, she had fallen and had been to the emergency room on 05/21/17. She had pivoted the wrong way and lost her balance at home. She said that she felt that she should have gone to the prison on discharge, was not doing well. She has never been in a prison before, but is barely functioning at home. She has a home health aide who has been bringing her breakfast, but then has only been eating tomato soup for supper. She feels that she is in a lot of pain and not sleeping and requested to be hospitalized. She came in today with her business case analyst from [facility] who said that she would help arrange for admission. She is being on admitted at this time. PAST MEDICAL HISTORY: Significant for the following medical problems: 1. Type 2 diabetes mellitus. 2. 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 3. Migraine with aura. 4. Peripheral neuropathy. 5. Superior vena cava syndrome. 6. Gastroesophageal reflux disease. 7. History of iron deficiency anemia. 8. History of diverticular disease. 9. Multiple medication allergies. 10. Inflammatory polyarthropathy. 11. Degenerative joint disease. 12. Fibromyalgia. 13. Osteoporosis. 14. Chronic pain syndrome. MEDICATIONS: 1. Alpha lipoic acid 100 mg t.i.d. 2. Atenolol 12.5 mg daily. 3. Atorvastatin 10 mg daily. 4. Azelastine 2 sprays twice a day. 5. Baclofen 20 mg 4 times a day. 6. Bumetanide 2 mg p.o. b.i.d. 7. Dexilant ER 60 mg daily. 8. Hydromorphone 8 mg p.o. q.4h. p.r.n. 9. Dilaudid MERLIN. 10. Potassium chloride 20 mEq daily. 11. Estradiol 1 mg p.o. daily. 12. OxyContin 10 mg p.o. b.i.d. 13. Vitamin D3 4000 International Units daily. 14. Vitamin C 500 mg daily. 15. Comstock-3 1000 mg b.i.d. 16. Folic acid 1 mg daily. 17. Thyroid magnesium 6 g p.o. daily. 18. Floradix iron 10 mg per 10 mL p.o. daily. 19. Humalog 60 units sliding scale. 20. Imitrex 100 mg p.o. q.12h. p.r.n. migraine 21. Ipratropium bromide 0.06% 1 spray nasal 4 times a day p.r.n. 22. Lantus 60 units daily at bedtime. 23. Levocetirizine 5 mg p.o. daily. 24. Linzess 290 mcg p.o. daily. in the a.m. 25. Metformin 1000 mg p.o. b.i.d. 26. Methotrexate 0.6 mL subcu weekly. 27. Ondansetron 4 mg p.o. q.4h. p.r.n. ALLERGIES: ASPIRIN, BENADRYL, BIAXIN, CECLOR, CLARITHROMYCIN, CLINORIL, CODEINE , CORTISONE, CYMBALTA, DARVOCET, DARVON, DOXEPIN, DOXYCYCLINE, ELAVIL, EXALGO, FELDENE, FENTANYL, HYDROXYCHLOROQUINE, ITRACONAZOLE, LANOLIN, MEDROL, MORPHINE, MOTRIN, NAPROSYN, NASACORT, NASONEX, NEURONTIN, NORPRAMIN, NUCYNTA, OPANA, OXYCODONE, MUPIROCIN, PAXIL, PENICILLIN, PERCOCET, PERCODAN, PROZAC, SAVELLA, SULFASALAZINE, TALWIN, TRAZODONE, TRICYCLICS, ULTRAM, VALIUM, XANAX. FAMILY HISTORY: Positive for depression. SOCIAL HISTORY: The patient lives alone. She has a friend Arden, who comes to her appointments. She has grown sons. REVIEW OF SYSTEMS: Generally, she has been feeling very weak. She has been having chills, but no fevers or sweats. Her appetite is poor. She is not eating much. Skin: Negative. HEENT: She has chronic eye pain, blurred vision. She reports pain in her ears. She has had nose bleeds in the past, sinus trouble, hay fever and allergies. She has had prolonged hoarseness. She has difficulty swallowing. Heme: Easy bruisability. Endocrine: See above. She has intolerance to heat. Breast: She reports pain in her breast. Nodes: Negative. Respiratory: She has dyspnea on exertion. Cardiovascular: She reports swollen ankles. GI: She has had persistent nausea and vomiting, vomited every day until yesterday. She has chronic abdominal pain. She takes Linzess for irritable bowel syndrome. She has hemorrhoids. : She has decreased in the flow or force of her urine. MALTSTER: She is menopausal. Musculoskeletal: She has pain in her neck, back and all her joints. Neurologic : She has tremors, muscle weakness, numbness and tingling, frequent headaches, dizziness. PHYSICAL EXAMINATION VITAL SIGNS: Blood pressure 120/82, pulse 96, respirations 20, temperature 97.7. She has erythematous facies with signs of superior vena cava syndrome. HEENT: PERRLA. She has a conjunctival injection. Mucous membranes appear dry. NECK: Supple. NODES: Without adenopathy. CHEST: Chest is clear. HEART: Normal S1, S2. She has a 1/6 systolic murmur. Pulses are full. ABDOMEN: Soft, mildly tender in the upper abdomen. No rebound or guarding. Normal bowel sounds. EXTREMITIES: Show no edema. NEUROLOGIC: She moves all extremities. A detailed neurologic exam was not performed. LABORATORY: Pending. IMPRESSION: This 66-year-old female with weakness and persistent vomiting since recent admission for hyperosmolar diabetic syndrome. She is not managing well at home. Plan is to admit her for observation and get PT/OT evaluations and social work evaluation, possible prison placement. We will decide on DVT prophylaxis depending on how long she stays in the hospital. Her usual medications will be continued. She requests IV Dilaudid rather than generic hydromorphone. She states she does not tolerate this. She is a full code. Also , of note, the business case analyst mentions that in order to urinate she has to lift up her primary and bend forward. I will consider imaging her kidneys and her bladder if this has not previously been done. [id number]/[facility] #: [id number] [facility]ITAL[facility]
[2017-05-30] MEDS: HYDROmorphone INJ* 2 MG/ML CARPUJECT SYRINGE IV PRN ×5 (03:16→22:44)
[2017-05-30] MEDS: Azelastine 0.15% NASAL(NF) 30 ML BTL BOTH NARES SCH ×2 (08:53→21:16)
[2017-05-30] MEDS: oxyCODONE SR TAB(*) 10 MG TAB.SR PO SCH ×2 (08:55→20:57)
[2017-05-30] MEDS: Insulin LISPRO* 1 UNITS UNIT SUBCUT SCH ×4 (08:55→20:58)
[2017-05-30] MEDS: Cholecalciferol TAB* 1000 UNITS PO SCH (08:55)
[2017-05-30] MEDS: metFORMIN* 1,000 MG TAB PO SCH ×2 (08:55→20:58)
[2017-05-30] MEDS: Atenolol TAB* 25 MG PO SCH (08:55)
[2017-05-30] MEDS: Folic Acid TAB* 1 MG PO SCH (08:55)
[2017-05-30] MEDS: Cetirizine* 10 MG TAB PO SCH (08:55)
[2017-05-30] MEDS: Atorvastatin* 10 MG TAB PO SCH (08:55)
[2017-05-30] MEDS: Ascorbic Acid TAB* 500 MG PO SCH (08:55)
[2017-05-30] MEDS: Baclofen TAB* 20 MG PO SCH ×4 (08:55→20:58)
[2017-05-30] MEDS: Potassium Chlor TAB* 20 MEQ TAB.ER PO SCH (08:55)
[2017-05-30] MEDS: ALPHA LIPOIC ACID 100 MG PO SCH ×3 (08:56→21:16)
[2017-05-30] MEDS: Dexlansoprazole (NF) 60 MG CAP PO SCH (08:56)
[2017-05-30] MEDS: Estradiol TAB(NF) 1 MG TAB PO SCH (08:56)
[2017-05-30] MEDS: MAGNESIUM PO SCH (08:56)
[2017-05-30] MEDS: OMEGA-3 FATTY ACIDS (NF) 1,000 MG CAP PO SCH ×2 (08:57→21:16)
[2017-05-30] MEDS: [UNRECOGNIZED DRUG - OTHER] PO SCH (08:57)
[2017-05-30] MEDS: Heparin VIAL(*) 5000 UNITS/ML VIAL (FIVE THOUSAND) SUBCUT SCH ×2 (15:49→20:57)
[2017-05-30] MEDS: Bumetanide TAB* 2 MG PO SCH (17:45)
[2017-05-30] MEDS: Insulin GLARGINE(*) 1 UNITS UNIT SUBCUT SCH (20:59)
[2017-05-31] MEDS: HYDROmorphone INJ* 2 MG/ML CARPUJECT SYRINGE IV PRN ×3 (02:58→12:17)
[2017-05-31] MEDS: Heparin VIAL(*) 5000 UNITS/ML VIAL (FIVE THOUSAND) SUBCUT SCH (05:25)
[2017-05-31] MEDS: Insulin LISPRO* 1 UNITS UNIT SUBCUT SCH ×2 (08:47→12:47)
[2017-05-31] MEDS: Ascorbic Acid TAB* 500 MG PO SCH (08:48)
[2017-05-31] MEDS: Atenolol TAB* 25 MG PO SCH (08:48)
[2017-05-31] MEDS: Atorvastatin* 10 MG TAB PO SCH (08:49)
[2017-05-31] MEDS: Cetirizine* 10 MG TAB PO SCH (08:49)
[2017-05-31] MEDS: Folic Acid TAB* 1 MG PO SCH (08:49)
[2017-05-31] MEDS: oxyCODONE SR TAB(*) 10 MG TAB.SR PO SCH (08:49)
[2017-05-31] MEDS: Cholecalciferol TAB* 1000 UNITS PO SCH (08:50)
[2017-05-31] MEDS: metFORMIN* 1,000 MG TAB PO SCH (08:50)
[2017-05-31] MEDS: Potassium Chlor TAB* 20 MEQ TAB.ER PO SCH (08:51)
[2017-05-31] MEDS: Baclofen TAB* 20 MG PO SCH (08:51)
[2017-05-31] MEDS: Bumetanide TAB* 2 MG PO SCH (08:52)
[2017-05-31] MEDS: Azelastine 0.15% NASAL(NF) 30 ML BTL BOTH NARES SCH (08:56)
[2017-05-31] MEDS: OMEGA-3 FATTY ACIDS (NF) 1,000 MG CAP PO SCH (08:57)
[2017-05-31] MEDS: Dexlansoprazole (NF) 60 MG CAP PO SCH (08:57)
[2017-05-31] MEDS: [UNRECOGNIZED DRUG - OTHER] PO SCH (08:57)
[2017-05-31] MEDS: MAGNESIUM PO SCH (08:57)
[2017-05-31] MEDS: Estradiol TAB(NF) 1 MG TAB PO SCH (08:57)
[2017-05-31] MEDS: ALPHA LIPOIC ACID 100 MG PO SCH (08:57)
--- NOTE | 2017-05-31 11:33 | TRS ---
CC: [facility]; Dr. Briones; Dr. Duncan * DATE OF ADMISSION: 05/29/2017. DATE OF TRANSFER: 05/31/2017. TRANSFER DIAGNOSES: 1. Weakness, difficulty functioning at home. 2. Right leg pain, status post recent fall. 3. Type 2 diabetes mellitus. 4. History of recent pancreatitis. 5. Chronic pain. 6. 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 7. Migraine. 8. Superior vena cava syndrome. 9. Gastroesophageal reflux disease. 10. History of iron deficiency anemia. 11. Diverticulosis. 12. Multiple medication allergies. 13. Inflammatory polyarthropathy, treated with Methotrexate. 14. Degenerative joint disease. 15. Fibromyalgia. 16. Osteoporosis. HISTORY: Keila Brown is a 66-year-old woman admitted for weakness and difficulty functioning at home. Please see the dictated admission note for details of the present illness, past medical history, family history, social and personal history, review of systems, and physical examination. LABORATORY DATA: CBC: WBC 7.3, H and H 12.4/38, MCV 87, PLT 170k. Chemistries : Sodium 135, potassium 3.7, chloride 96, CO2 32, BUN and creatinine 10/0.8, glucose 256. Rest of her comprehensive metabolic panel was within normal limits except for total protein and albumin slightly low at 5.5/3. Amylase and lipase were normal. C-reactive protein was normal at 1.74. Glucoses ranged from 142 to 246. HOSPITAL COURSE: The patient was admitted. She was maintained on her usual medications, except since she could not get MERLIN Dilaudid in the hospital, she was switched to IV Hydromorphone. She had her blood sugars monitored. She received occupational therapy and physical therapy evaluations. Physical therapy evaluation showed that the patient was able to ambulate 40 , but her hips were hurting and she needed to return to the bed. They noted very short step length and little or no swing phase. She had poor endurance and she refused sitting up in a chair to eat lunch for 30 to 40 minutes. The physical therapist felt that she would benefit from strengthening and endurance training , good pain control to maximize therapy sessions, and she would benefit from CARLA stay to maximize her potential. The occupational therapist noted that her pain was 8.5/10 in her joints and muscles with her legs hurting a lot. She felt that her group insurance special agent strength was 2+/5. Other strength testing deferred due to pain. Her endurance was fair due to pain. She was able to don/doff housecoat with setup. She felt that she was at baseline. The patient was able to keep down diet while in the hospital. She had been vomiting prior to admission. By the time of transfer, she was feeling better except for persistent pain in her right leg since a recent fall. She felt that it was improving. It was diffuse through the right leg and it was not felt that x-rays would be helpful. She wanted to go to [facility] in order to recuperate. She was discharged. MEDICATIONS: At that time of discharge her medications are as follows: 1. Alpha Lipoic Acid 100 mg three times a day. 2. Atenolol 12.5 mg daily. 3. Atorvastatin 10 mg daily. 4. Azelastine 0.15% two sprays in each nostril b.i.d. 5. Baclofen 20 mg p.o. q.i.d. 6. Bumetanide 2 mg p.o. b.i.d. 7. Dexilant 60 mg p.o. daily. 8. Dilaudid MERLIN 8 mg p.o. q.4 hours prn pain. 9. Potassium Chloride 20 mEq p.o. daily. 10. Estradiol 1 mg p.o. daily. 11. Floradix Iron 10 mg/10 ml p.o. daily. 12. Imitrex 100 mg p.o. q.12 hours prn migraine. 13. Ipratropium 0.06% one nasal spray q.i.d. prn nasal congestion. 14. Lantus 60 units subcutaneous daily. 15. Humalog sliding scale 2 units for glucose 151 to 200 subcutaneously a.c. and at bedtime, 4 units 201 to 250, 6 units for glucose 251 to 300, 8 units for glucose 301 to 350, and 10 units for glucose 351 to 400. 16. Levocetirizine 5 mg p.o. daily. 17. Linzess 290 mcg p.o. q.a.m. 18. Metformin 1,000 mg p.o. b.i.d. 19. Methotrexate 50 mg/2 ml inject 0.6 ml subcutaneously once a week. This is equal to 30 mg. 20. Ondansetron 4 mg p.o. q.4 hours prn nausea. 21. OxyContin 10 mg p.o. b.i.d. 22. Vitamin D3 4,000 units p.o. daily. 23. Vitamin C 500 mg p.o. daily. 24. Cost-3 1,000 mg p.o. b.i.d. 25. Folic Acid 1 mg p.o. daily. 26. Magnesium 6 gm p.o. daily. She is a full code. She should have physical therapy at the senior living, as well as occupational therapy. [id number]/[facility] #: [id number] TIKI
[2017-05-31 11:38] VITALS: BP 123/59
== END 2017-05-31 14:50 ==
LOC: MED 17:17
PROVIDERS: ADMIT Internal Medicine Geriatric Medicine; ATTEND Internal Medicine Geriatric Medicine
DX: R53.1 Weakness (principal); E11.9 Type 2 diabetes mellitus without complications; G43.109 Migraine with aura, not intractable, without status migrainosus; G62.9 Polyneuropathy, unspecified; I87.1 Compression of vein; K21.9 Gastro-esophageal reflux disease without esophagitis; Z86.2 Personal history of diseases of the blood and blood-forming organs and certain disorders involving the immune mechanism; M06.4 Inflammatory polyarthropathy; M19.90 Unspecified osteoarthritis, unspecified site; M79.7 Fibromyalgia; M81.0 Age-related osteoporosis without current pathological fracture; G89.4 Chronic pain syndrome; Z88.1 Allergy status to other antibiotic agents; Z88.6 Allergy status to analgesic agent; F11.20 Opioid dependence, uncomplicated; Z79.84 Long term (current) use of oral hypoglycemic drugs; I10 Essential (primary) hypertension; E78.00 Pure hypercholesterolemia, unspecified; J45.909 Unspecified asthma, uncomplicated; K44.9 Diaphragmatic hernia without obstruction or gangrene; K57.90 Diverticulosis of intestine, part unspecified, without perforation or abscess without bleeding; F32.9 Major depressive disorder, single episode, unspecified; Z88.5 Allergy status to narcotic agent; Z88.8 Allergy status to other drugs, medicaments and biological substances; Z91.048 Other nonmedicinal substance allergy status; Z87.891 Personal history of nicotine dependence
CPT/HCPCS: 36415; 80053; 82150; 83690; 83735; 84100; 85027; 86140; A9270-GY; G0378; G8978-GP-CJ; G8978-GP-CK; G8979-GP-CI; G8987-GO-CK; G8988-GO-CK; G8989-GO-CK; J1170; J1644

== ENCOUNTER 2017-05-31 18:53 | Emergency (ER) | payer MEDICARE, MEDICAID ==
[2017-05-31] MEDS ORDERED: HYDROmorphone INJ* 2 MG/ML CARPUJECT SYRINGE IM ONE ×2 (20:59→21:12)
[2017-05-31] MEDS ORDERED: oxyCODONE SR TAB(*) 10 MG TAB.SR PO ONE (21:09)
[2017-06-01 00:33] VITALS: BP 141/74
--- NOTE | 2017-06-01 02:38 | ED ---
Aditya Starks Gabriel, scribed for Gino Ramirez MD on 05/31/17 at 2115 . Complex/Multi-Sys Presentation - HPI Summary HPI Summary: This patient is a 66 year old F presenting [facility] sent from [place] for pain management. Pt was admitted for glucose issues and was discharged this morning. Laurenkt ann sent he here because they cant handle her medication list. She has been on the pain mediation for several years. She has only has a dose of dilaudid at 1200 today. The patient rates the whole body pain 9/10 in severity. - History Of Current Complaint Chief Complaint: EDGeneral Time Seen by Provider: 05/31/17 20:59 Hx Obtained From: Patient Onset/Duration: Still Present Timing: Constant Severity Currently: Severe Severity Initially: Severe Location: Pain At: - whole body - Allergies/Home Medications Allergies/Adverse Reactions: Allergies Allergy/AdvReac Type Severity Reaction Status Date / Time methylparaben Allergy Intermediate Pain Verified 05/29/17 18:06 morphine Allergy Intermediate Hallucinati Verified 05/29/17 18:06 ons tizanidine Allergy Intermediate Swelling Verified 05/29/17 18:06 Of Face,Lips,& Throat Tricyclic Compounds Allergy Intermediate Altered Verified 05/29/17 18:06 Mental Status hydromorphone Allergy Mild See Comment Verified 05/29/17 18:06 itraconazole Allergy Mild Rash Verified 05/29/17 18:06 lanolin Allergy Mild Rash Verified 05/29/17 18:06 milnacipran Allergy Mild Rash And Verified 05/29/17 18:06 Itching mometasone furoate Allergy Mild Headache Verified 05/29/17 18:06 naloxone Allergy Mild Headache Verified 05/29/17 18:06 ondansetron Allergy Mild Headache Verified 05/29/17 18:06 oxycodone Allergy Mild Palpitation Verified 05/29/17 18:06 s oxymorphone Allergy Mild Palpitation Verified 05/29/17 18:06 s Penicillins Allergy Mild Rash Verified 05/29/17 18:06 pentazocine Allergy Mild Palpitation Verified 05/29/17 18:06 s propoxyphene Allergy Mild Rash Verified 05/29/17 18:06 sulfasalazine Allergy Mild Rash Verified 05/29/17 18:06 talc Allergy Mild Rash Verified 05/29/17 18:06 tramadol Allergy Mild Muscle Ache Verified 05/29/17 18:06 trazodone Allergy Mild Insomnia Verified 05/29/17 18:06 Adhesive Tape Allergy Unknown Unknown Verified 05/29/17 18:06 Reaction Details alprazolam Allergy Unknown Unknown Verified 05/29/17 18:06 Reaction Details aspirin Allergy Unknown Unknown Verified 05/29/17 18:06 Reaction Details cefaclor Allergy Unknown Unknown Verified 05/29/17 18:06 Reaction Details clarithromycin Allergy Unknown Unknown Verified 05/29/17 18:06 Reaction Details codeine Allergy Unknown Unknown Verified 05/29/17 18:06 Reaction Details diazepam Allergy Unknown Unknown Verified 05/29/17 18:06 Reaction Details diphenhydramine Allergy Unknown Unknown Verified 05/29/17 18:06 Reaction Details doxycycline Allergy Unknown Unknown Verified 05/29/17 18:06 Reaction Details duloxetine Allergy Unknown Unknown Verified 05/29/17 18:06 Reaction Details fentanyl Allergy Unknown See Comment Verified 05/29/17 18:06 fluoxetine Allergy Unknown Unknown Verified 05/29/17 18:06 Reaction Details gabapentin Allergy Unknown See Comment Verified 05/29/17 18:06 hydroxychloroquine Allergy Unknown Unknown Verified 05/29/17 18:06 Reaction Details paroxetine Allergy Unknown Unknown Verified 05/29/17 18:06 Reaction Details Corticosteroids Allergy Unknown Verified 05/29/17 18:06 (Glucocorticoids) Reaction Details mupirocin Allergy Unknown Verified 05/29/17 18:06 Reaction Details NSAIDS (Non-Steroidal Allergy Unknown Verified 05/29/17 18:06 Anti-Inflamma Reaction Details tapentadol [From Nucynta] Allergy Unknown Verified 05/29/17 18:06 Reaction Details ALL MELONS Allergy Severe Anaphylatic Uncoded 05/29/17 18:06 Shock APPLE AND GRAPE JUICE Allergy Severe Anaphylatic Uncoded 05/29/17 18:06 Shock BLACK PEPPER Allergy Intermediate HIVES, Uncoded 05/29/17 18:06 TROUBLE BREATHING, ITCHING, BAD STOMACH PAIN RAW ONIONS Allergy Intermediate TROUBLE Uncoded 05/29/17 18:06 BREATHING, HIVES VINEGAR Allergy Intermediate TROUBLE Uncoded 05/29/17 18:06 BREATHING APPLESAUCE Allergy Mild Edema Uncoded 05/29/17 18:06 ENVRIONMENTAL Allergy Mild Sneezing Uncoded 05/29/17 18:06 chlorine Allergy Unknown Unknown Uncoded 05/29/17 18:06 Reaction Details PEPPERS Allergy Unknown Unknown Uncoded 05/29/17 18:06 Reaction Details BANDAIDS AdvReac Mild Blisters Uncoded 05/29/17 18:06 CIGARETTE SMOKE AdvReac Mild Airway Uncoded 05/29/17 18:06 Obstruction ICEBERG LETTUCE AdvReac Mild Stomach Uncoded 05/29/17 18:06 Cramps Home Medications: Home Medications Ascorbic Acid TAB* [Vitamin C TAB*] 500 mg PO DAILY 05/31/17 [History Confirmed 05/31/17] Potassium Chlor TAB* [Klor Con ER TAB*] 20 meq PO DAILY 05/31/17 [History Confirmed 05/31/17] PMH/Surg Hx/FS Hx/Imm Hx Endocrine/Hematology History: Reports: Hx Diabetes Denies: Hx Systemic Lupus Erythematosus, Hx Anemia Cardiovascular History: Reports: Hx Hypercholesterolemia, Hx Hypertension - ON MEDICATION FOR, Other Cardiovascular Problems/Disorders - SUPERIOR VENA CAVA [id number]. [facility] Denies: Hx Congestive Heart Failure - superior vena cava syndrome, Hx Pacemaker/ICD Respiratory History: Reports: Hx Asthma GI History: Reports: Hx Gastroesophageal Reflux Disease - ON MEDICATION FOR, Hx Hiatal Hernia, Other GI Disorders - HX DIVERTICULOSIS Denies: Hx Jaundice History: Denies: Hx Dialysis, Hx Renal Disease Musculoskeletal History: Reports: Hx Arthritis - OSTEO, Hx Osteoporosis, Hx Tendonitis - WRISTS AND ELBOWS, Other Musculoskeletal History - DEGEN DISC DISEASE; chronic pain Denies: Hx Rheumatoid Arthritis - myeloradicular neurapathy Sensory History: Reports: Hx Cataracts - BILAT, Hx Contacts or Glasses Denies: Hx Hearing Aid Opthamlomology History: Reports: Hx Cataracts - BILAT, Hx Contacts or Glasses Neurological History: Reports: Hx Headaches, Hx Migraine - 2-3 TIMES PER WEEK- TREATS WITH IMITREX, Other Neuro Impairments/Disorders - multiple sclerosis, FIBROMYALGIA, MYELORADICULAR NEUROPATHY Psychiatric History: Reports: Hx Depression - MILD Denies: Hx Panic Disorder - Cancer History Hx Chemotherapy: No - Surgical History Surgery Procedure, Year, and Place: Hysterectomy 1999 [facility]. D+C 1999 [facility]. BOWEL RESECTION, COLOSTOMY 1993. COLOSTOMY WITH REVERSAL 1994 [facility]. OVARIAN CYSTECTOMY 1996 [facility]. LAP CRISTIAN WITH INFUSAPORT REMOVAL 2013 [facility]. APPY REMOVAL OF RIGHT OVARIAN CYST AND RESECTION 1968. T&A. DEVIATED SEPTUM REPAIR. SINUS SURGERY 2006 [facility]. INFUSAPORT 2003. 2014- LEFT EYE CATARACT REMOVED Hx Anesthesia Reactions: No - Immunization History Date of Influenza Vaccine: hsa not received Infectious Disease History: No Infectious Disease History: Reports: Hx Hepatitis - "medical"- only while taking a medication-states no longer takes, name unkn Denies: Traveled Outside the [place] in Last 30 Days - Family History Known Family History: Positive: Other - Breast CA; anasthesia reaction Negative: Cardiac Disease - Social History Alcohol Use: None Hx Substance Use: No Substance Use Type: Reports: None Hx Tobacco Use: Yes Smoking Status (MU): Former Smoker Type: Cigarettes Amount Used/How Often: 4 PPD X 15 YEARS Length of Time of Smoking/Using Tobacco: 20 YRS Have You Smoked in the Last Year: No Review of Systems Negative: Fever Positive: Other - whole body pain chronic All Other Systems Reviewed And Are Negative: Yes Physical Exam - Summary Physical Exam Summary: Appearance: Well appearing, no pain distress Skin: warm, dry, reflects adequate perfusion Head/face: normal Eyes: EOMI, CHETAN ENT: normal Neck: supple, non-tender Respiratory: CTA, breath sounds present Cardiovascular: RRR, pulses symmetrical Abdomen: non-tender, soft Bowel Sounds: present Musculoskeletal: normal, strength/ROM intact Neuro: normal, sensory motor intact, A&Ox3 Triage Information Reviewed: Yes Vital Signs On Initial Exam: Initial Vitals Temp Pulse Resp BP Pulse Ox 97.5 F 85 20 147/79 96 05/31/17 18:58 05/31/17 18:58 05/31/17 18:58 05/31/17 18:58 05/31/17 18:58 Vital Signs Reviewed: Yes Diagnostics - Vital Signs Vital Signs Temp Pulse Resp BP Pulse Ox 05/31/17 18:58 97.5 F 85 20 147/79 96 - Laboratory Lab Statement: Any lab studies that have been ordered have been reviewed, and results considered in the medical decision making process. Complex Multi-Symp Course/Dx Course Of Treatment: Pt was discharged from this facility to rehab site. On arrival there she demanded IV/IM dilaudid (which they cannot provide) and they promptly returned her here. Pt has chronic pain on mult opiates. She was tx for her pain here and was very comfortable. She maintains that she cannot take "anything but brand name" diluadid (pill) which she understands may be difficult to obtain for the rehab facility. She was tx with her oral oxycontin here prior to arrangements made for facility to accept her back. - Diagnoses Provider Diagnoses: Chronic pain syndrome, Opioid dependence Discharge - Sign-Out/Discharge Documenting (check all that apply): Discharge - Discharge Plan Condition: Good Disposition: INTERMEDIATE CARE FACILITY Patient Education Materials: Chronic Pain (ED) Referrals: Anila Saul MD [Primary Care Provider] - Additional Instructions: Have your medications filled in the morning and take as ordered. Return if worse or other concerns. - Billing Disposition and Condition Condition: GOOD Disposition: ICF The documentation as recorded by the Aditya mayer Gabriel accurately reflects the service I personally performed and the decisions made by me, Gino Ramirez MD.
== END 2017-06-01 00:32 ==
LOC: ED 18:53
DX: G89.4 Chronic pain syndrome (principal); F11.20 Opioid dependence, uncomplicated; E11.9 Type 2 diabetes mellitus without complications; Z79.84 Long term (current) use of oral hypoglycemic drugs; I10 Essential (primary) hypertension; E78.00 Pure hypercholesterolemia, unspecified; J45.909 Unspecified asthma, uncomplicated; K21.9 Gastro-esophageal reflux disease without esophagitis; K44.9 Diaphragmatic hernia without obstruction or gangrene; K57.90 Diverticulosis of intestine, part unspecified, without perforation or abscess without bleeding; G43.909 Migraine, unspecified, not intractable, without status migrainosus; F32.9 Major depressive disorder, single episode, unspecified; Z88.6 Allergy status to analgesic agent; Z88.1 Allergy status to other antibiotic agents; Z88.5 Allergy status to narcotic agent; Z88.0 Allergy status to penicillin; Z88.2 Allergy status to sulfonamides; Z88.8 Allergy status to other drugs, medicaments and biological substances; Z91.048 Other nonmedicinal substance allergy status; Z87.891 Personal history of nicotine dependence
CPT/HCPCS: 96372; 99282; A9270-GY; J1170

== ENCOUNTER 2017-08-10 13:35 | Emergency (ER) | payer MEDICARE, MEDICAID ==
[2017-08-10] MEDS ORDERED: Ondansetron ODT TAB* 4 MG PO ONE (14:36)
[2017-08-10 14:44] LABS: ABS Basophils 0 10^3/ul (0-0.2); ABS Eosinophils 0 10^3/ul (0-0.6); ABS Lymphocytes 2.2 10^3/ul (1.0-4.8); ABS Monocytes 1.2 10^3/ul (0-0.8); ABS Neutrophils 9.5 10^3/ul (1.5-7.7); ABS Nucleated RBC 0 10^3/ul; Eosinophil % 0.1 % (0-6); Hematocrit 43 % (35-47); Hemoglobin 14.3 g/dl (12.0-16.0); Lymphocyte % 16.9 % (25-47); Mean Corpuscular HGB Conc 33 g/dl (31-36); Mean Corpuscular Hemoglobin 28 pg (27-31); Mean Corpuscular Volume 83 fL (80-97); Mean Platelet Volume 7.3 um3 (7.4-10.4); Nucleated Red Blood Cells % 0; Platelet Count 247 10^3/ul (150-450); Red Blood Count 5.18 10^6/ul (4.00-5.40); Red Cell Distribution Width 19 % (10.5-15); White Blood Count 12.9 10^3/ul (3.5-10.8)
[2017-08-10 14:49] LABS: INR 1.08 (0.77-1.02)
[2017-08-10 14:51] LABS: Urine Appearance Cloudy; Urine Blood Negative (Negative); Urine Color Yellow; Urine Ketones 1+ (Negative); Urine Protein 1+(30 mg/dL) (Negative); Urine Specific Gravity 1.011 (1.010-1.030); Urine Urobilinogen Negative (Negative)
[2017-08-10 15:01] LABS: EGFR Non-African American 43.8 (>60)
[2017-08-10] MEDS ORDERED: Potassium Chlor TAB* 20 MEQ TAB.ER PO ONE (15:40)
[2017-08-10] MEDS ORDERED: NS 0.9% 1000 ML* 1,000 ML IV ONE (15:41)
[2017-08-10] MEDS ORDERED: HYDROmorphone INJ* 2 MG/ML CARPUJECT SYRINGE IM ONE (18:43)
[2017-08-10 20:33] VITALS: BP 170/85
--- NOTE | 2017-08-12 06:42 | PN ---
Progress Note - Progress Note Date of Service: 08/10/17 Note: Urine culture preliminary grew Klebsiella pneumonia Patient was not placed on medications prior to discharge We will await sensitivities prior to administration of medication
--- NOTE | 2017-08-13 08:28 | PN ---
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
--- NOTE | 2017-08-15 08:06 | ED ---
Fidelia Starks Rebecca, scribed for Breanna Noriega MD on 08/10/17 at 1358 . Abdominal Pain/Female - HPI Summary HPI Summary: Pt is a 66 y/o F BIBA who presents to ED c/o diffuse abdominal pain with N/V. Ate a "cold plate" from [employer] a few days ago and sx began a few hours after ingestion. On triage, pain is severe, ranked 9/10 and characterized as cramping. Additionally c/o subjective fever and constipation. Tried a double dose of milk of magnesia which did not improve sx. Last BM 3 days ago, but she usually has one every day. PMHx diverticulitis (requiring surgery) and DM - did not take insulin this morning. On examination, vital signs are: HR of 78, O2 saturation of 98, BP of 165/77. Pt has chronic pain and is on prescribed opiates. - History of Current Complaint Chief Complaint: EDAbdPain Stated Complaint: VOMITING,GENERAL ILLNESS Time Seen by Provider: 08/10/17 13:55 Hx Obtained From: Patient Onset/Duration: Gradual Onset, Lasting Days, Still Present Timing: Constant Severity Initially: Moderate Severity Currently: Severe Pain Intensity: 9 Pain Scale Used: 0-10 Numeric Location: Diffuse Radiates: No Character: Cramping Aggravating Factor(s): Nothing Alleviating Factor(s): Nothing Associated Signs and Symptoms: Positive: Fever, Constipation, Nausea, Vomiting Allergies/Adverse Reactions: Allergies Allergy/AdvReac Type Severity Reaction Status Date / Time methylparaben Allergy Intermediate Pain Verified 05/29/17 18:06 morphine Allergy Intermediate Hallucinati Verified 05/29/17 18:06 ons tizanidine Allergy Intermediate Swelling Verified 05/29/17 18:06 Of Face,Lips,& Throat Tricyclic Compounds Allergy Intermediate Altered Verified 05/29/17 18:06 Mental Status hydromorphone Allergy Mild See Comment Verified 05/29/17 18:06 itraconazole Allergy Mild Rash Verified 05/29/17 18:06 lanolin Allergy Mild Rash Verified 05/29/17 18:06 milnacipran Allergy Mild Rash And Verified 05/29/17 18:06 Itching mometasone furoate Allergy Mild Headache Verified 05/29/17 18:06 naloxone Allergy Mild Headache Verified 05/29/17 18:06 ondansetron Allergy Mild Headache Verified 05/29/17 18:06 oxycodone Allergy Mild Palpitation Verified 05/29/17 18:06 s oxymorphone Allergy Mild Palpitation Verified 05/29/17 18:06 s Penicillins Allergy Mild Rash Verified 05/29/17 18:06 pentazocine Allergy Mild Palpitation Verified 05/29/17 18:06 s propoxyphene Allergy Mild Rash Verified 05/29/17 18:06 sulfasalazine Allergy Mild Rash Verified 05/29/17 18:06 talc Allergy Mild Rash Verified 05/29/17 18:06 tramadol Allergy Mild Muscle Ache Verified 05/29/17 18:06 trazodone Allergy Mild Insomnia Verified 05/29/17 18:06 Adhesive Tape Allergy Unknown Unknown Verified 05/29/17 18:06 Reaction Details alprazolam Allergy Unknown Unknown Verified 05/29/17 18:06 Reaction Details aspirin Allergy Unknown Unknown Verified 05/29/17 18:06 Reaction Details cefaclor Allergy Unknown Unknown Verified 05/29/17 18:06 Reaction Details clarithromycin Allergy Unknown Unknown Verified 05/29/17 18:06 Reaction Details codeine Allergy Unknown Unknown Verified 05/29/17 18:06 Reaction Details diazepam Allergy Unknown Unknown Verified 05/29/17 18:06 Reaction Details diphenhydramine Allergy Unknown Unknown Verified 05/29/17 18:06 Reaction Details doxycycline Allergy Unknown Unknown Verified 05/29/17 18:06 Reaction Details duloxetine Allergy Unknown Unknown Verified 05/29/17 18:06 Reaction Details fentanyl Allergy Unknown See Comment Verified 05/29/17 18:06 fluoxetine Allergy Unknown Unknown Verified 05/29/17 18:06 Reaction Details gabapentin Allergy Unknown See Comment Verified 05/29/17 18:06 hydroxychloroquine Allergy Unknown Unknown Verified 05/29/17 18:06 Reaction Details paroxetine Allergy Unknown Unknown Verified 05/29/17 18:06 Reaction Details Corticosteroids Allergy Unknown Verified 05/29/17 18:06 (Glucocorticoids) Reaction Details mupirocin Allergy Unknown Verified 05/29/17 18:06 Reaction Details NSAIDS (Non-Steroidal Allergy Unknown Verified 05/29/17 18:06 Anti-Inflamma Reaction Details tapentadol [From Nucynta] Allergy Unknown Verified 05/29/17 18:06 Reaction Details ALL MELONS Allergy Severe Anaphylatic Uncoded 05/29/17 18:06 Shock APPLE AND GRAPE JUICE Allergy Severe Anaphylatic Uncoded 05/29/17 18:06 Shock BLACK PEPPER Allergy Intermediate HIVES, Uncoded 05/29/17 18:06 TROUBLE BREATHING, ITCHING, BAD STOMACH PAIN RAW ONIONS Allergy Intermediate TROUBLE Uncoded 05/29/17 18:06 BREATHING, HIVES VINEGAR Allergy Intermediate TROUBLE Uncoded 05/29/17 18:06 BREATHING APPLESAUCE Allergy Mild Edema Uncoded 05/29/17 18:06 ENVRIONMENTAL Allergy Mild Sneezing Uncoded 05/29/17 18:06 chlorine Allergy Unknown Unknown Uncoded 05/29/17 18:06 Reaction Details PEPPERS Allergy Unknown Unknown Uncoded 05/29/17 18:06 Reaction Details BANDAIDS AdvReac Mild Blisters Uncoded 05/29/17 18:06 CIGARETTE SMOKE AdvReac Mild Airway Uncoded 05/29/17 18:06 Obstruction ICEBERG LETTUCE AdvReac Mild Stomach Uncoded 05/29/17 18:06 Cramps Home Medications: Home Medications Atenolol TAB* [Tenormin TAB* 25 MG] 25 mg PO DAILY 08/10/17 [History Confirmed 08/10/17] Atorvastatin* [Lipitor 10 MG*] 5 mg PO DAILY 08/10/17 [History Confirmed ] Baclofen TAB* [Lioresal TAB*] 20 mg PO QID PRN 08/10/17 [History Confirmed ] Clobetasol 0.05% OINT* 1 applic TOPICAL BID 08/10/17 [History Confirmed 08/10/17 ] Clotrimazole/Betamethasone* [Lotrisone Cream*] 1 applic TOPICAL BID 08/10/17 [ History Confirmed 08/10/17] Cyanocobalamin INJ * [Vitamin B12 INJ *] 1,000 mcg IM MONTHLY 08/10/17 [History Confirmed 08/10/17] Insulin Lispro [Humalog] 2 - 10 units SUBCUT QID 08/10/17 [History Confirmed ] Magnesium Hydroxide LIQ* [Milk of Magnesia LIQ*] 30 ml PO TID PRN 08/10/17 [ History Confirmed 08/10/17] Metronidazole (TOPICAL)(NF) [Metrocream (NF)] 1 applic TOPICAL BID PRN 08/10/17 [History Confirmed 08/10/17] Milk Thistle 1,000 mg PO DAILY 08/10/17 [History Confirmed 08/10/17] Mupirocin 2% OINT* [Bactroban 2 % Oint*] 1 applic TOPICAL TID 08/10/17 [History Confirmed 08/10/17] Peg 400/Hypromellose/Glycerin [Visine Dry Eye Relief Drop] 1 drop BOTH EYES Q4HR PRN 08/10/17 [History Confirmed 08/10/17] SUMAtriptan SQ* [Imitrex SQ*] 6 mg SUBCUT DAILY PRN 08/10/17 [History Confirmed 08/10/17] PMH/Surg Hx/FS Hx/Imm Hx Previously Healthy: No Endocrine/Hematology History: Reports: Hx Diabetes Denies: Hx Systemic Lupus Erythematosus, Hx Anemia Cardiovascular History: Reports: Hx Hypercholesterolemia, Hx Hypertension, Other Cardiovascular Problems/Disorders - SU[employer]IOR [employer]- [employer]PER[employer]-DR[facility] Denies: Hx Congestive Heart Failure - superior vena cava syndrome, Hx Pacemaker/ICD Respiratory History: Reports: Hx Asthma GI History: Reports: Hx Diverticulosis, Hx Gastroesophageal Reflux Disease, Hx Hiatal Hernia Denies: Hx Jaundice History: Denies: Hx Dialysis, Hx Renal Disease Musculoskeletal History: Reports: Hx Arthritis - OSTEO, Hx Osteoporosis, Hx Tendonitis - WRISTS AND ELBOWS, Other Musculoskeletal History - DEGEN DISC DISEASE; chronic pain Denies: Hx Rheumatoid Arthritis - myeloradicular neurapathy Sensory History: Reports: Hx Cataracts - BILAT, Hx Contacts or Glasses Denies: Hx Hearing Aid Opthamlomology History: Reports: Hx Cataracts - BILAT, Hx Contacts or Glasses Neurological History: Reports: Hx Headaches, Hx Migraine - 2-3 TIMES PER WEEK- TREATS WITH IMITREX, Other Neuro Impairments/Disorders - multiple sclerosis, FIBROMYALGIA, MYELORADICULAR NEUROPATHY Psychiatric History: Reports: Hx Depression Denies: Hx Panic Disorder - Cancer History Hx Chemotherapy: No - Surgical History Surgery Procedure, Year, and Place: Hysterectomy 1999 [facility] [place]. D+C 1999 [facility] [place]. BOWEL RESECTION, COLOSTOMY 1993. COLOSTOMY WITH REVERSAL 1994 [facility] [place]. OVARIAN CYSTECTOMY 1996 [facility] [place]. LAP CRISTIAN WITH INFUSAPORT REMOVAL 2013 [facility] [place]. APPY REMOVAL OF RIGHT OVARIAN CYST AND RESECTION 1968. T&A. DEVIATED SEPTUM REPAIR. SINUS SURGERY 2006 [facility] [place]. INFUSAPORT 2004. 2015- LEFT EYE CATARACT REMOVED Hx Anesthesia Reactions: No - Immunization History Date of Influenza Vaccine: hsa not received Infectious Disease History: Yes Infectious Disease History: Reports: Hx Hepatitis - "medical"- only while taking a medication-states no longer takes, name unkn Denies: Traveled Outside the [place] in Last 30 Days - Family History Known Family History: Positive: Other - Breast CA; anesthesia reaction Negative: Cardiac Disease - Social History Alcohol Use: None Hx Substance Use: No Substance Use Type: Reports: None Hx Tobacco Use: Yes Smoking Status (MU): Former Smoker Type: Cigarettes Amount Used/How Often: 4 PPD X 15 YEARS Length of Time of Smoking/Using Tobacco: 20 YRS Have You Smoked in the Last Year: No Review of Systems Positive: Fever - subjective Cardiovascular: Negative Respiratory: Negative Positive: Abdominal Pain, Vomiting, Nausea, Other - Constipation Positive: Other - chronic pain Skin: Negative Neurological: Negative Psychological: Normal All Other Systems Reviewed And Are Negative: Yes Physical Exam - Summary Physical Exam Summary: Appearance: Chronically ill-appearing, moderate pain distress, obese Skin: Warm, color reflects adequate perfusion, dry, facial redness Head: Redness bilateral cheeks and forehead, atraumatic Eyes: Conjunctiva clear ENT: Normal inspection Neck: Supple, no nodes, no JVD Respiratory: Lungs clear, normal breath sounds, no respiratory distress Cardio: RRR, No murmur, pulses normal, brisk capillary refill Abdomen: Soft, tender LLQ, no masses, no guarding, no rebound Bowel sounds: Present Musculoskeletal: Strength Intact/ROM intact, no calf tenderness, no edema. Psychological: Depressed affect Neuro: Alert, muscle tone normal, no focal deficit Rectal: (commander internal affairs is Conchita, ED aide) External hemorrhoids, no impaction, minimal brown stool in rectum, soft, stool sent for occult blood diagnostic testing Triage Information Reviewed: Yes Vital Signs On Initial Exam: Initial Vitals Temp Pulse Resp BP Pulse Ox 99.0 F 87 15 168/84 95 08/10/17 13:43 08/10/17 13:43 08/10/17 13:43 08/10/17 13:43 08/10/17 13:43 Vital Signs Reviewed: Yes Diagnostics - Vital Signs Vital Signs Temp Pulse Resp BP Pulse Ox 08/10/17 13:43 99.0 F 87 15 168/84 95 - Laboratory Lab Results: Lab Results 0608/10/17 08/10/17 Range/Units 14:26 14:34 14:34 WBC 12.9 H (3.5-10.8) 10^3/ul RBC 5.18 (4.00-5.40) 10^6/ul Hgb 14.3 (12.0-16.0) g/dl Hct 43 (35-47) % MCV 83 (80-97) fL MCH 28 (27-31) pg MCHC 33 (31-36) g/dl RDW 19 H (10.5-15) % Plt Count 247 (150-450) 10^3/ul MPV 7.3 L (7.4-10.4) um3 Neut % (Auto) 73.7 (38-83) % Lymph % (Auto) 16.9 L (25-47) % [place] % (Auto) 9.1 H (0-7) % Eos % (Auto) 0.1 (0-6) % Baso % (Auto) 0.2 (0-2) % Absolute Neuts (auto) 9.5 H (1.5-7.7) 10^3/ul Absolute Lymphs (auto) 2.2 (1.0-4.8) 10^3/ul Absolute Monos (auto) 1.2 H (0-0.8) 10^3/ul Absolute Eos (auto) 0 (0-0.6) 10^3/ul Absolute Basos (auto) 0 (0-0.2) 10^3/ul Absolute Nucleated RBC 0 10^3/ul Nucleated RBC % 0 INR (Anticoag Therapy) 1.08 H (0.77-1.02) Sodium (135-145) mmol/L Potassium (3.5-5.0) mmol/L Chloride (101-111) mmol/L Carbon Dioxide (22-32) mmol/L Anion Gap (2-11) mmol/L BUN (6-24) mg/dL Creatinine (0.51-0.95) mg/dL Est GFR ( Amer) (>60) Est GFR (Non-Af Amer) (>60) BUN/Creatinine Ratio (8-20) Glucose (70-100) mg/dL Lactic Acid (0.5-2.0) mmol/L Calcium (8.6-10.3) mg/dL Magnesium (1.9-2.7) mg/dL Total Bilirubin (0.2-1.0) mg/dL AST (13-39) U/L ALT (7-52) U/L Alkaline Phosphatase (34-104) U/L Total Creatine Kinase (10-223) U/L Troponin I (<0.04) ng/mL C-Reactive Protein (<8.01) mg/L Total Protein (6.4-8.9) g/dL Albumin (3.2-5.2) g/dL Globulin (2-4) g/dL Albumin/Globulin Ratio (1-3) Amylase (29-103) U/L Lipase (11.0-82.0) U/L Urine Color Yellow Urine Appearance Cloudy Urine pH 8.0 (5-9) Ur Specific [place] 1.011 (1.010-1.030) Urine Protein 1+(30 mg/dl) A (Negative) Urine Ketones 1+ A (Negative) Urine Blood Negative (Negative) Urine Nitrate Negative (Negative) Urine Bilirubin Negative (Negative) Urine Urobilinogen Negative (Negative) Ur Leukocyte Esterase 1+ A (Negative) Urine WBC (Auto) 3+(>20/hpf) A (Absent) Urine RBC (Auto) 1+(3-5/hpf) A (Absent) Ur Squamous Epith Cells Present A (Absent) Urine Bacteria 1+ A (Absent) Urine Glucose Negative (Negative) 08/10/17 08/10/17 Range/Units 14:34 14:34 WBC (3.5-10.8) 10^3/ul RBC (4.00-5.40) 10^6/ul Hgb (12.0-16.0) g/dl Hct (35-47) % MCV (80-97) fL MCH (27-31) pg MCHC (31-36) g/dl RDW (10.5-15) % Plt Count (150-450) 10^3/ul MPV (7.4-10.4) um3 Neut % (Auto) (38-83) % Lymph % (Auto) (25-47) % [place] % (Auto) (0-7) % Eos % (Auto) (0-6) % Baso % (Auto) (0-2) % Absolute Neuts (auto) (1.5-7.7) 10^3/ul Absolute Lymphs (auto) (1.0-4.8) 10^3/ul Absolute Monos (auto) (0-0.8) 10^3/ul Absolute Eos (auto) (0-0.6) 10^3/ul Absolute Basos (auto) (0-0.2) 10^3/ul Absolute Nucleated RBC 10^3/ul Nucleated RBC % INR (Anticoag Therapy) (0.77-1.02) Sodium 138 (135-145) mmol/L Potassium 3.1 L (3.5-5.0) mmol/L Chloride 94 L (101-111) mmol/L Carbon Dioxide 32 (22-32) mmol/L Anion Gap 12 H (2-11) mmol/L BUN 19 (6-24) mg/dL Creatinine 1.22 H (0.51-0.95) mg/dL Est GFR ( Amer) 53.0 (>60) Est GFR (Non-Af Amer) 43.8 (>60) BUN/Creatinine Ratio 15.6 (8-20) Glucose 241 H (70-100) mg/dL Lactic Acid 1.5 (0.5-2.0) mmol/L Calcium 9.6 (8.6-10.3) mg/dL Magnesium 2.4 (1.9-2.7) mg/dL Total Bilirubin 1.00 (0.2-1.0) mg/dL AST 29 (13-39) U/L ALT 20 (7-52) U/L Alkaline Phosphatase 106 H (34-104) U/L Total Creatine Kinase 43 (10-223) U/L Troponin I 0.00 (<0.04) ng/mL C-Reactive Protein 6.45 (<8.01) mg/L Total Protein 7.3 (6.4-8.9) g/dL Albumin 3.9 (3.2-5.2) g/dL Globulin 3.4 (2-4) g/dL Albumin/Globulin Ratio 1.1 (1-3) Amylase 52 (29-103) U/L Lipase 47 (11.0-82.0) U/L Urine Color Urine Appearance Urine pH (5-9) Ur Specific [place] (1.010-1.030) Urine Protein (Negative) Urine Ketones (Negative) Urine Blood (Negative) Urine Nitrate (Negative) Urine Bilirubin (Negative) Urine Urobilinogen (Negative) Ur Leukocyte Esterase (Negative) Urine WBC (Auto) (Absent) Urine RBC (Auto) (Absent) Ur Squamous Epith Cells (Absent) Urine Bacteria (Absent) Urine Glucose (Negative) Result Diagrams: 08/10/17 14:34 08/10/17 14:34 Lab Statement: Any lab studies that have been ordered have been reviewed, and results considered in the medical decision making process. Re-Evaluation - Re-Evaluation First Eval Re-Evaluation Time: 18:28 Change: Improved Comment: Discussed results. Reports chronic shoulder pain as well as abdominal pain that is worse than usual, which she believes is secondary to vomiting. Rectal exam was performed with Conchita hodges) as commander internal affairs. Nausea is now controlled and reports that she has Zofran at home. Typically takes Dilaudid for chronic pain and she reports being overdue for it and requests a shot of Dilaudid. States that she would need help getting into her room at home. Vitals signs are: HR of 86 bpm, respiratory rate of 21, BP of 152/98. Abdominal Pain Fem Course/Dx - Course Course Of Treatment: Pt with hx diverticulitis, bowel resection with colostomy reversal, hx chronic pain on opiates, presents with few day hx of diffuse abd pain after eating "[employer]" cold plate. Pt reports nausea and vomiting and subjective fever at home. Pt has nausea but no vomiting in the ED, and nausea is relieved in the ED with po zofran. Pt's abd remains soft with mild diffuse tenderness and some LLQ tenderness. Pt has bowel sounds. Pt c/o constipation. Rectal exam shows small amount brown stool, guaiac neg, not impacted. Pt was given IV dilaudid in the ED in place of her usual po dilaudid (because she is "allergic to our oral dilaudid"). No imaging was done as pt remains afebrile, not vomiting and pain and nausea is controlled with pt's usual medications. Pt has mildly elevated WBC count in the ED, without left shift, and without elevated CRP. Urine shows probable UTI, but with pt's multiple allergies, will hold on antibiotics until culture results return. Pt's DM is poorly controlled , however pt states she did not take her insulin this am, and states she will resume her medications. Pt agrees to discharge. - Diagnoses Differential Diagnosis: Positive: Bowel Obstruction, Constipation, Diverticulitis, Urinary Tract Infection Provider Diagnoses: Abdominal pain in female, Poorly controlled diabetes mellitus Discharge - Sign-Out/Discharge Documenting (check all that apply): Discharge/Admit/Transfer - Discharge - Discharge Plan Condition: Stable Disposition: HOME Prescriptions: Levofloxacin TAB* [Levaquin TAB*] 500 mg PO DAILY #5 tab Patient Education Materials: Acute Nausea and Vomiting (ED), Acute Abdominal Pain (ED) Referrals: Anila Saul MD [Primary Care Provider] - 2 Days Additional Instructions: You were given ondansetron 4mg ODT and dilaudid 2mg injectable while you were in the ER today. Your stool did not show any blood, and you were not impacted. Return to the ER if you have any new or worsening symptoms. - Billing Disposition and Condition Condition: STABLE Disposition: Home The documentation as recorded by the Fidelia mayer Rebecca accurately reflects the service I personally performed and the decisions made by , Breanna Noriega MD.
== END 2017-08-10 19:40 | disposition home or self-care (01) ==
LOC: ED 13:35
DX: R10.9 Unspecified abdominal pain (principal); R11.2 Nausea with vomiting, unspecified; M25.519 Pain in unspecified shoulder; G89.29 Other chronic pain; K21.9 Gastro-esophageal reflux disease without esophagitis; I10 Essential (primary) hypertension; E11.9 Type 2 diabetes mellitus without complications; Z87.19 Personal history of other diseases of the digestive system; Z79.4 Long term (current) use of insulin; Z87.891 Personal history of nicotine dependence; Z79.899 Other long term (current) drug therapy; Z88.5 Allergy status to narcotic agent; Z88.8 Allergy status to other drugs, medicaments and biological substances; Z88.0 Allergy status to penicillin; Z88.6 Allergy status to analgesic agent; Z88.2 Allergy status to sulfonamides
CPT/HCPCS: 36415; 80053; 81003; 81015; 82150; 82272; 82550; 83605; 83690; 83735; 84484; 85025; 85610; 86140; 87077; 87086; 87186; 99283; A9270-GY; J1170

== ENCOUNTER 2017-11-20 15:21 | Inpatient (IN) | payer MEDICARE, MEDICAID ==
--- NOTE | 2017-11-20 15:42 | ED ---
GI/ HPI - HPI Summary HPI Summary: This patient is a 67 year old F BIBA to [facility] with several complaints. 5 days ago the patient had n/v and has had decreased PO intake since then. A day later the patient reports dizziness, syncope, and falls. Today the patient has had a migraine and she has a history of migraines. She has not been eating or drinking recently, she is concerned with dehydration. Pt lives alone and is visited by home health aide. The patient rates the pain 8/10 in severity. Symptoms aggravated by standing. Patient reports diarrhea. Pt has chronic abd pain and takes dilaudid daily. Pt states she also has a bladder infection, dx a couple weeks ago. She was given an abx but had a recent change due to ineffectiveness but she has not begun the new one yet. Hx of dm and states her blood glucose has been high, EMS reports reading of 219. - History of Current Complaint Stated Complaint: SYNCOPE/HEADACHE Hx Obtained From: Patient Onset/Duration: Started Days Ago, Still Present Timing: Constant Severity: Moderate Current Severity: Moderate Pain Intensity: 8 Location of Pain: Diffuse Associated Signs and Symptoms: Positive: Other: - PARKER, n/v/d, abd pain, LOC, fall - Additional Pertinent History Primary Care Physician: [id number] - Allergy/Home Medications Allergies/Adverse Reactions: Allergies Allergy/AdvReac Type Severity Reaction Status Date / Time methylparaben Allergy Intermediate Pain Verified 05/29/17 18:06 morphine Allergy Intermediate Hallucinati Verified 05/29/17 18:06 ons tizanidine Allergy Intermediate Swelling Verified 05/29/17 18:06 Of Face,Lips,& Throat Tricyclic Compounds Allergy Intermediate Altered Verified 05/29/17 18:06 Mental Status hydromorphone Allergy Mild See Comment Verified 05/29/17 18:06 itraconazole Allergy Mild Rash Verified 05/29/17 18:06 lanolin Allergy Mild Rash Verified 05/29/17 18:06 milnacipran Allergy Mild Rash And Verified 05/29/17 18:06 Itching mometasone furoate Allergy Mild Headache Verified 05/29/17 18:06 naloxone Allergy Mild Headache Verified 05/29/17 18:06 ondansetron Allergy Mild Headache Verified 05/29/17 18:06 oxycodone Allergy Mild Palpitation Verified 05/29/17 18:06 s oxymorphone Allergy Mild Palpitation Verified 05/29/17 18:06 s Penicillins Allergy Mild Rash Verified 05/29/17 18:06 pentazocine Allergy Mild Palpitation Verified 05/29/17 18:06 s propoxyphene Allergy Mild Rash Verified 05/29/17 18:06 sulfasalazine Allergy Mild Rash Verified 05/29/17 18:06 talc Allergy Mild Rash Verified 05/29/17 18:06 tramadol Allergy Mild Muscle Ache Verified 05/29/17 18:06 trazodone Allergy Mild Insomnia Verified 05/29/17 18:06 Adhesive Tape Allergy Unknown Unknown Verified 05/29/17 18:06 Reaction Details alprazolam Allergy Unknown Unknown Verified 05/29/17 18:06 Reaction Details aspirin Allergy Unknown Unknown Verified 05/29/17 18:06 Reaction Details cefaclor Allergy Unknown Unknown Verified 05/29/17 18:06 Reaction Details clarithromycin Allergy Unknown Unknown Verified 05/29/17 18:06 Reaction Details codeine Allergy Unknown Unknown Verified 05/29/17 18:06 Reaction Details diazepam Allergy Unknown Unknown Verified 05/29/17 18:06 Reaction Details diphenhydramine Allergy Unknown Unknown Verified 05/29/17 18:06 Reaction Details doxycycline Allergy Unknown Unknown Verified 05/29/17 18:06 Reaction Details duloxetine Allergy Unknown Unknown Verified 05/29/17 18:06 Reaction Details fentanyl Allergy Unknown See Comment Verified 05/29/17 18:06 fluoxetine Allergy Unknown Unknown Verified 05/29/17 18:06 Reaction Details gabapentin Allergy Unknown See Comment Verified 05/29/17 18:06 hydroxychloroquine Allergy Unknown Unknown Verified 05/29/17 18:06 Reaction Details paroxetine Allergy Unknown Unknown Verified 05/29/17 18:06 Reaction Details Corticosteroids Allergy Unknown Verified 05/29/17 18:06 (Glucocorticoids) Reaction Details mupirocin Allergy Unknown Verified 05/29/17 18:06 Reaction Details NSAIDS (Non-Steroidal Allergy Unknown Verified 05/29/17 18:06 Anti-Inflamma Reaction Details tapentadol [From Nucynta] Allergy Unknown Verified 05/29/17 18:06 Reaction Details ALL MELONS Allergy Severe Anaphylatic Uncoded 05/29/17 18:06 Shock APPLE AND GRAPE JUICE Allergy Severe Anaphylatic Uncoded 05/29/17 18:06 Shock BLACK PEPPER Allergy Intermediate HIVES, Uncoded 05/29/17 18:06 TROUBLE BREATHING, ITCHING, BAD STOMACH PAIN RAW ONIONS Allergy Intermediate TROUBLE Uncoded 05/29/17 18:06 BREATHING, HIVES VINEGAR Allergy Intermediate TROUBLE Uncoded 05/29/17 18:06 BREATHING APPLESAUCE Allergy Mild Edema Uncoded 05/29/17 18:06 ENVRIONMENTAL Allergy Mild Sneezing Uncoded 05/29/17 18:06 chlorine Allergy Unknown Unknown Uncoded 05/29/17 18:06 Reaction Details PEPPERS Allergy Unknown Unknown Uncoded 05/29/17 18:06 Reaction Details BANDAIDS AdvReac Mild Blisters Uncoded 05/29/17 18:06 CIGARETTE SMOKE AdvReac Mild Airway Uncoded 05/29/17 18:06 Obstruction ICEBERG LETTUCE AdvReac Mild Stomach Uncoded 05/29/17 18:06 Cramps PMH/Surg Hx/FS Hx/Imm Hx Endocrine/Hematology History: Reports: Hx Diabetes Denies: Hx Systemic Lupus Erythematosus, Hx Anemia Cardiovascular History: Reports: Hx Hypercholesterolemia, Hx Hypertension, Other Cardiovascular Problems/Disorders - 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 Denies: Hx Congestive Heart Failure - superior vena cava syndrome, Hx Pacemaker/ICD Respiratory History: Reports: Hx Asthma GI History: Reports: Hx Diverticulosis, Hx Gastroesophageal Reflux Disease, Hx Hiatal Hernia, Other GI Disorders - HX DIVERTICULOSIS Denies: Hx Jaundice History: Denies: Hx Dialysis, Hx Renal Disease Musculoskeletal History: Reports: Hx Arthritis - OSTEO, Hx Osteoporosis, Hx Tendonitis - WRISTS AND ELBOWS, Other Musculoskeletal History - DEGEN DISC DISEASE; chronic pain Denies: Hx Rheumatoid Arthritis - myeloradicular neurapathy Sensory History: Reports: Hx Cataracts - BILAT, Hx Contacts or Glasses Denies: Hx Hearing Aid Opthamlomology History: Reports: Hx Cataracts - BILAT, Hx Contacts or Glasses Neurological History: Reports: Hx Headaches, Hx Migraine - 2-3 TIMES PER WEEK- TREATS WITH IMITREX, Other Neuro Impairments/Disorders - multiple sclerosis, FIBROMYALGIA, MYELORADICULAR NEUROPATHY Psychiatric History: Reports: Hx Depression Denies: Hx Panic Disorder - Cancer History Hx Chemotherapy: No - Surgical History Surgery Procedure, Year, and Place: [place] [facility] [place] [facility] [place] [facility] [place] [place]. BOWEL RESECTION, COLOSTOMY 1993. COLOSTOMY WITH REVERSAL 1994 [facility] [place] [facility] [place] OVARIAN CYSTECTOMY 1996 [facility] [place] [facility] [place] LAP CRISTIAN WITH INFUSAPORT REMOVAL 2013 [facility] [place] [facility] [place]. APPY REMOVAL OF RIGHT OVARIAN CYST AND RESECTION 1968. T&A. DEVIATED SEPTUM REPAIR. SINUS SURGERY 2006 [facility] [place] [facility] [place]. INFUSAPORT 2003. 2015- LEFT EYE CATARACT REMOVED Hx Anesthesia Reactions: No - Immunization History Date of Influenza Vaccine: hsa not received Infectious Disease History: Reports: Hx Hepatitis - "medical"- only while taking a medication-states no longer takes, name unkn - Family History Known Family History: Positive: Other - Breast CA; anesthesia reaction Negative: Cardiac Disease - Social History Alcohol Use: None Hx Substance Use: No Substance Use Type: Reports: None Hx Tobacco Use: Yes Smoking Status (MU): Former Smoker Type: Cigarettes Amount Used/How Often: 4 PPD X 15 YEARS Length of Time of Smoking/Using Tobacco: 20 YRS Have You Smoked in the Last Year: No Review of Systems Constitutional: Other - possible dehydration Positive: Other - falls Positive: Abdominal Pain, Vomiting, Diarrhea, Nausea Genitourinary: Other - bladder infection Neurological: Other - dizziness Positive: Headache, Syncope All Other Systems Reviewed And Are Negative: Yes Physical Exam - Summary Physical Exam Summary: Appearance: Well-appearing, Well-nourished, lying in bed comfortably Skin: Warm, dry, no obvious rash Eyes: sclera anicteric, no conjunctival pallor ENT: Mucus membranes are dry Neck: Supple, nontender Respiratory: Clear to auscultation, no signs of respiratory distress Cardiovascular: Normal S1, S2. No murmurs. Normal distal pulses in tibial and radial bilaterally. Abdomen: Soft, nontender, normal active bowel sounds present Musculoskeletal: Normal, Strength/ROM Intact Neurological: A&Ox3, awake and alert, mentation is normal, speech is fluent and appropriate Psychiatric: affect is normal, does not appear anxious or depressed Diagnostics - Laboratory Result Diagrams: 11/20/17 16:30 11/20/17 16:30 Lab Statement: Any lab studies that have been ordered have been reviewed, and results considered in the medical decision making process. - EKG 1549 Cardiac Rate: NL EKG Rhythm: Sinus Rhythm - NSR at 71 BPM, P waves, QRS complex, and T waves are within normal limits, T waves and intervals are normal, no ischemic changes. This is a normal EKG GIGU Course/Dx - Course Assessment/Plan: This patient is a 67 year old F BIBA to [facility] with several complaints. 5 days ago the patient had n/v and has had decreased PO intake since then. A day later the patient reports dizziness, syncope, and falls. Today the patient has had a migraine and she has a history of migraines. She has not been eating or drinking recently, she is concerned with dehydration. Pt lives alone and is visited by home health aide. The patient rates the pain 8/ 10 in severity. Symptoms aggravated by standing. Patient reports diarrhea. Pt has chronic abd pain and takes dilaudid daily. Pt states she also has a bladder infection, dx a couple weeks ago. She was given an abx but had a recent change due to ineffectiveness but she has not begun the new one yet. Hx of dm and states her blood glucose has been high, EMS reports reading of 219. An EKG reveals NSR. Blood work obtained. In the ED course the patient was given IV fluids and dilaudid. Pt improved with these medications. We discussed patient care with Dr Tucker and he has agreed to admit the patient. Patient will be admitted. The patient is agreeable with this plan. - Diagnoses Provider Diagnoses: Dehydration, Acute renal insufficiency - Physician Notifications Discussed Care Of Patient With: Crow Tucker Time Discussed With Above Provider: 17:28 Instructed by Provider To: Admit As Inpatient Discharge - Sign-Out/Discharge Documenting (check all that apply): Patient Departure - Discharge Plan Condition: Fair Disposition: ADMITTED TO [facility] Referrals: Anila Saul MD [Primary Care Provider] - - Attestation Statements Document Initiated by Scribe: Yes Documenting Scribe: Zaheer Burgess Provider For Whom Bishop is Documenting (Include Credential): Carlos Akins MD Scribe Attestation: Zaheer Starks, scribed for Carlos Akins MD on 11/20/17 at 6199.
[2017-11-20] MEDS: NS 0.9% 1000 ML* 2,000 ML IV ONE ×2 (15:44→18:12)
[2017-11-20] MEDS ORDERED: HYDROmorphone TAB* 4 MG PO ONE (16:18)
[2017-11-20 16:59] LABS: Hematocrit 41 % (35-47); Hemoglobin 13.2 g/dl (12.0-16.0); Mean Corpuscular HGB Conc 32 g/dl (31-36); Mean Corpuscular Hemoglobin 27 pg (27-31); Mean Corpuscular Volume 82 fL (80-97); Mean Platelet Volume 7.9 um3 (7.4-10.4); Platelet Count 254 10^3/ul (150-450); Red Blood Count 4.97 10^6/ul (4.00-5.40); Red Cell Distribution Width 17 % (10.5-15)
[2017-11-20 17:10] LABS: EGFR Non-African American 16.6 (>60)
[2017-11-20] MEDS ORDERED: HYDROmorphone INJ* 2 MG/ML CARPUJECT SYRINGE IV SLOW PU ONE (17:17)
[2017-11-20] MEDS ORDERED: HYDROmorphone INJ1* 1 MG/ML SYRINGE ONE (17:27)
[2017-11-20 17:30] LABS: ABS Basophils 0.1 10^3/ul (0-0.2); ABS Eosinophils 0.3 10^3/ul (0-0.6); ABS Lymphocytes 5.7 10^3/ul (1.0-4.8); ABS Monocytes 1.3 10^3/ul (0-0.8); ABS Neutrophils 6.7 10^3/ul (1.5-7.7); ABS Nucleated RBC 0 10^3/ul; Eosinophil % 1.9 % (0-6); Lymphocyte % 40.3 % (25-47); Nucleated Red Blood Cells % 0.1
[2017-11-20] MEDS ORDERED: NS 0.9% 1000 ML* 1,000 ML IV ONE (18:07)
[2017-11-20] MEDS ORDERED: Acetaminophen TAB* 325 MG PO PRN (18:07)
[2017-11-20] MEDS ORDERED: Dextrose 50% Syringe 50 ML* 25 GM/50 ML SYRINGE IV PUSH PRN (18:07)
[2017-11-20] MEDS ORDERED: HYDROMORPHONE 8 MG PO PRN (18:11)
[2017-11-20] MEDS ORDERED: NS 0.9% 1000 ML* 1,000 ML IV SCH (18:15)
[2017-11-20] MEDS ORDERED: Albuterol 2.5 MG/3 ML NEB.SOL* (0.083%) INH PRN (18:35)
--- NOTE | 2017-11-20 19:11 | RAD ---
EXAM: CT Head Without Intravenous Contrast CLINICAL HISTORY: 67 years old, female; Signs and symptoms; Syncope and collapse TECHNIQUE: Axial computed tomography images of the head/brain without intravenous contrast. All CT scans at this facility use at least one of these dose optimization techniques: automated exposure control; mA and/or kV adjustment per patient size (includes targeted exams where dose is matched to clinical indication); or iterative reconstruction. COMPARISON: No relevant prior studies available. FINDINGS: Brain: Unchanged CSF isodense extra-axial lesion along the left superior parietal convexity measuring up to 2.1 cm in thickness, likely representing arachnoid cyst. No intracranial hemorrhage or extra-axial fluid collection. No evidence of mass effect or midline shift. Klein-white matter differentiation is normal. Ventricles: Unremarkable. No ventriculomegaly. Bones/joints: Unremarkable. No acute fracture. Soft tissues: Unremarkable. Sinuses: Unremarkable as visualized. No acute sinusitis. Mastoid air cells: Unremarkable as visualized. No mastoid effusion. IMPRESSION: 1. No acute intracranial pathology. 2. Unchanged left parietal convexity arachnoid cyst. To contact [facility] with a general question: [facility] - [phone] For direct physician to physician contact: Physician Hotline - [phone] [facility] ([facility] Facility ID #[id number])
--- NOTE | 2017-11-20 19:22 | RAD ---
EXAM: CT Abdomen and Pelvis Without Intravenous Contrast CLINICAL HISTORY: 67 years old, female; Signs and symptoms; Nausea and vomiting; Additional info: Arf TECHNIQUE: Axial computed tomography images of the abdomen and pelvis without intravenous contrast. All CT scans at this facility use at least one of these dose optimization techniques: automated exposure control; mA and/or kV adjustment per patient size (includes targeted exams where dose is matched to clinical indication); or iterative reconstruction. Coronal and sagittal reformatted images were created and reviewed. COMPARISON: No relevant prior studies available. FINDINGS: Lung bases: Mild bibasilar dependent atelectasis of the lung bases. ABDOMEN: Liver: Unremarkable. Gallbladder and bile ducts: The gallbladder is surgically absent. No ductal dilation. Pancreas: Unremarkable. No ductal dilation. Spleen: Unremarkable. No splenomegaly. Adrenals: Unremarkable. No mass. Kidneys and ureters: 0.6 cm exophytic low density lesion in the right kidney, too small to characterize though statistically representing cysts. No obstructing stones. No hydronephrosis. Stomach and bowel: Postoperative changes compatible with partial distal colectomy. No obstruction. PELVIS: Appendix: No evidence of acute appendicitis. Bladder: Unremarkable. No stones. Reproductive: Unremarkable as visualized. ABDOMEN and PELVIS: Intraperitoneal space: Unremarkable. No free air. No significant fluid collection. Bones/joints: Approximately 1.8 cm round sclerotic lesion in the S1 vertebral body with well-defined borders, likely representing a large bone island. Multilevel degenerative changes of the visualized spine. No acute fracture. No dislocation. Soft tissues: Unremarkable. Vasculature: Prominent varicosities along the anterior abdominal and chest wall. Atherosclerotic calcifications of the aorta and major branches. No abdominal aortic aneurysm. Lymph nodes: Unremarkable. No enlarged lymph nodes. IMPRESSION: 1. No acute intra-abdominal pathology. 2. Prominent varicosities along the anterior abdominal and chest wall. 3. Other chronic findings, as above. To contact [facility] with a general question: [facility] - [phone] For direct physician to physician contact: Physician Hotline - [phone] [facility] ([facility] Facility ID #[id number])
[2017-11-20] MEDS: Heparin VIAL(*) 5000 UNITS/ML VIAL (FIVE THOUSAND) SUBCUT SCH (20:43)
[2017-11-20] MEDS: HYDROmorphone INJ1* 1 MG/ML SYRINGE IV SLOW PU PRN (20:43)
[2017-11-20] MEDS: Atorvastatin* 10 MG TAB PO SCH (20:44)
[2017-11-20] MEDS ORDERED: Insulin GLARGINE(*) 1 UNITS UNIT SUBCUT SCH (21:00)
[2017-11-20] MEDS: SUMAtriptan TAB* 100 MG PO PRN (22:57)
[2017-11-20] MEDS: Melatonin 3 MG TAB PO PRN (23:21)
[2017-11-21] MEDS: hydrOXYzine HCL TAB* 50 MG PO PRN ×2 (00:09→21:02)
[2017-11-21] MEDS: HYDROmorphone INJ1* 1 MG/ML SYRINGE IV SLOW PU PRN ×5 (01:09→20:09)
[2017-11-21 04:01] LABS: Urine Appearance Cloudy; Urine Blood 1+ (Negative); Urine Color Straw; Urine Ketones Negative (Negative); Urine Protein Negative (Negative); Urine Red Blood Cell 2+(6-10/hpf) (Absent); Urine Specific Gravity 1.003 (1.010-1.030); Urine Urobilinogen Negative (Negative); Urine White Blood Cell 3+(>20/hpf) (Absent)
[2017-11-21] MEDS: Heparin VIAL(*) 5000 UNITS/ML VIAL (FIVE THOUSAND) SUBCUT SCH ×3 (05:10→21:02)
--- NOTE | 2017-11-21 05:53 | HP ---
CC: Anila Saul MD * HISTORY AND PHYSICAL: DATE OF ADMISSION: 11/20/17 PRIMARY CARE PROVIDER: Anila Saul MD ATTENDING PHYSICIAN WHILE IN THE HOSPITAL: Flora Em MD * (report dictated by Andrés Jack NP) CHIEF COMPLAINT: 1. Syncope. 2. Nausea, vomiting, diarrhea. HISTORY OF PRESENT ILLNESS: Mrs. Brown is a 67-year-old female patient. She carries a history of diabetes. She has a history of a demyelinating neuro disease, history of migraines, fibromyalgia, peripheral neuropathy, polyarthropathy, chronic pain syndrome, anemia, diverticulitis, history of degenerative joint disease, asthma, hypertension, GERD, osteoporosis, and a history of SVC syndrome, also a history of multiple medical allergies. She is coming into the ED today. She states that over the last 3 to 4 days she has had worsening nausea, vomiting. She did have some intermittent type diarrhea. She states the diarrhea has now subsided. She is actually constipated. She took milk of mag yesterday, but she has noticed that she has not really been able to keep anything down. She denied any abdominal pain. She states she has not really been urinating. She has not really been able to eat or drink. She just has not felt like she has been fatigued. There have been no fevers or chills that were reported to us. She denies any chest pain. Denies having a cough. She denies any worsening shortness of breath or orthopnea. She states she has not had any lower leg swelling. No open areas were reported, but she was concerned because of the nausea, vomiting, not able to keep anything down. She denied abdominal distention. Denied abdominal pain. Denied having any flank pain. She states that she has been taking her medications. She was concerned because today and yesterday she had a few episodes where she thought was becoming dizzy, particularly with position change and she fainted. She denied any chest pain prior to or after these events and denied having any, again, worsening shortness of breath. She came in to the ED today. It was noted that she appeared to be in acute renal failure. She appeared to be significantly dehydrated. There was concern for the syncope and we were asked to evaluate for admission. PAST MEDICAL HISTORY: Significant for: 1. Diabetes. 2. Demyelinating disease. 3. Migraines. 4. Fibromyalgia. 5. Peripheral neuropathy. 6. Polyarthropathy. 7. SVC syndrome. 8. GERD. 9. Osteoporosis. 10. Anemia. 11. Diverticulosis. 12. Chronic pain syndrome. 13. Degenerative joint disease. 14. Asthma. 15. Hypertension. PAST SURGICAL HISTORY: 1. The patient has had a laparoscopic cholecystectomy. 2. She has had exploratory laparotomy with colostomy and reversal. 3. Hysterectomy. MEDICATIONS: Home medications include: 1. Milk of mag 30 cc p.o. b.i.d. as needed. 2. Calcium carbonate 1000 mg p.o. b.i.d. as needed. 3. Maalox 1 chew p.o. t.i.d. as needed. 4. Ysabel-C 1 tablet p.o. b.i.d. 5. Mag citrate 6 cc p.o. b.i.d. 6. Zinc oxide 1 application topically b.i.d. as needed. 7. Miconazole nitrate 2% topically b.i.d. as needed. 8. Mirvaso 1 application topically daily as needed. 9. Vitamin D 4000 units daily. 10. Methotrexate 50 mg subcu on . 11. Iron 10 cc p.o. b.i.d. with meals. 12. Estradiol 1 mg p.o. daily. 13. EpiPen 0.3 mg IM once as needed for reaction. 14. Potassium 20 mEq p.o. daily. 15. Alpha-lipoic acid 200 mg b.i.d. 16. Tenormin 12.5 mg daily. 17. Vitamin C 500 mg daily. 18. Lipitor 10 mg at bedtime. 19. Bactrim 20 mg 4 times a day as needed. 20. Astepro 2 sprays both nares b.i.d. 21. Clobetasol 1 application topically b.i.d. 22. Bumex 2 mg p.o. b.i.d. 23. Dexilant 60 mg daily. 24. Lotrisone 1 application topically b.i.d. 25. Dilaudid 8 mg every 3 hours as needed. 26. Folic acid 1 mg daily. 27. Lantus 80 units subcu at bedtime. 28. Insulin sliding scale 4 times a day as directed. 29. Levocetirizine 5 mg daily. 30. Ipratropium bromide 1 spray both nares 4 times a day as needed. 31. Linzess 290 mcg p.o. daily. 32. Metronidazole 1 application topically b.i.d. as needed. 33. Milk thistle 70 mg p.o. daily. 34. Zofran 4 mg sublingual q.4 hours p.r.n. nausea. 35. Fish oil 2000 mg p.o. b.i.d. 36. Potassium 10 mEq p.o. b.i.d. 37. Imitrex 6 mg subcu daily as needed. 38. Imitrex 100 mg p.o. daily as needed. 39. Metformin 1000 mg p.o. b.i.d. 40. Oxycodone 10 mg p.o. b.i.d. as needed. ALLERGIES TO MEDICATIONS: Include METHYLPARABEN, MORPHINE, TIZANIDINE, TRICYCLIC COMPOUNDS, HYDROMORPHONE, ITRACONAZOLE, LANOLIN, MILNACIPRAN, MOMETASONE, NALOXONE, ZOFRAN, OXYCODONE, OXYMORPHONE, PENICILLINS, PENTAZOCINE, PROPOXYPHENE, SULFA, , TRAMADOL, TRAZODONE, ADHESIVE TAPES, XANAX, ASPIRIN , CEFACLOR, CLARITHROMYCIN, CODEINE, DIAZEPAM, DIPHENHYDRAMINE, DOXYCYCLINE, FENTANYL, GABAPENTIN, PLAQUENIL, PAXIL, CORTICOSTEROIDS, BACTROBAN, NSAIDS, NUCYNTA. ALL MELONS, APPLE and GRAPE JUICE, PEPPER, ONIONS, VINEGAR, APPLESAUCE , ENVIRONMENTAL ALLERGIES, CHLORINE, BANANAS, CIGARETTE SMOKE, ICEBERG LETTUCE. FAMILY HISTORY: Mother had a history of CHF. Father had a history of stomach cancer. SOCIAL HISTORY: She does not smoke. She does not drink. She lives alone. Surrogate decision maker is her family. REVIEW OF SYSTEMS: There is no documented fever. She denied any significant weight change. There is no double vision. She denies having any ear discharge. She denied having any rhinorrhea. No sore throat. No thyroid enlargement. Denied any chest pain. There is no orthopnea. No nocturnal dyspnea. She denies having any abdominal pain but there was nausea, there was vomiting. There is no dysuria. There is no frequency. There was a loss of consciousness. There is no pruritus. No skin ulcerations. Review of 14 systems completed, all others negative. PHYSICAL EXAMINATION GENERAL: At this time, Mrs. Brown is a 67-year-old female patient. She is sitting in the ED stretcher. She does not appear to be in any acute distress. She is chronically ill appearing. VITAL SIGNS: Blood pressure 140/70, pulse 66, respirations were 20, O2 saturation is 93% on room air, temperature 97.6. HEENT: Head: Atraumatic, normocephalic. Eyes: EOMs are intact. Sclerae anicteric and not pale. Throat: Oral mucosa appears to be dry. No oropharyngeal erythema. NECK: Supple. LUNGS: Clear to auscultation. No wheezes, rales, or rhonchi. HEART: Sounds S1, S2. She had a regular rate and rhythm. She had no murmurs, rubs, or gallops. ABDOMEN: Soft, flat, nontender. Bowel sounds were present. EXTREMITIES: Pulses were 2+ throughout. She is moving all 4 extremities with 5 /5 strength. NEUROLOGICAL: She is awake, alert. She is oriented x3. Tongue is midline. Light Industrial Supervisor were equal. She had no gross focal deficits. SKIN: Intact. LABORATORY DATA/DIAGNOSTIC STUDIES: WBC of 14.0, RBC of 4.97, hemoglobin of 13.2, hematocrit of 41, she had a platelet count of 254,000. Sodium was 139, potassium 3.5, chloride of 99, bicarb 30, BUN 26, creatinine of 2.82, baseline creatinine is right around 1, glucose 156. Lactate 3.2. Calcium 9.3. Total bili 0.6, AST 21, ALT 15, alk phos 107. Troponin 0. CRP pending. Albumin was 3.8. EKG obtained today shows normal sinus rhythm, rate of 71, no ST elevations or T wave inversions were noted. Old medical records were reviewed. ASSESSMENT AND PLAN: Mrs. Brown is a 67-year-old female patient with a complex medical history, coming in to the ED today with complaints of a syncopal episode with nausea, vomiting. We were asked to evaluate for admission. She will be admitted under inpatient status for: 1. Syncope. I suspect this is probably secondary to hypovolemia. She was complaining of dizziness with position change; however, I will cycle her troponins. We will check an echo and place her on telemetry. We will get orthostatic blood pressures. I will hydrate her and will continue to follow. We will check a CT brain. 2. Acute renal failure. This is probably secondary to prerenal. I will send off a FENa. I will get a CT abdomen and pelvis without contrast to evaluate for obstructive uropathy. I suspect this is unlikely. We will get a UA. She was bladder scanned. She had 60 cc in her bladder. We will give her another liter of bolus. In addition to this, we will continue maintenance fluids. We will hold nephrotoxic agents. We will continue to follow. 3. Lactic acidosis. Etiology is unclear. It is probably elevated in the setting of metformin use with acute renal failure. I am panculturing the patient. Given the high white count and the lactic, we will send off urine. Get chest x- ray, blood cultures. No antibiotics just yet unless she spikes a fever. We will continue to monitor. I am also checking a flu swab. 4. Diabetes. She will be on lispro sliding scale. We will continue her Lantus. 5. History of demyelinating disease. Continue with her current medical regimen. 6. Migraines. I have ordered p.r.n. Imitrex. 7. Fibromyalgia. Continue pain meds as prescribed. 8. Peripheral neuropathy. Continue her meds as prescribed. 9. History of superior vena cava syndrome. Follow up with PCP. It is stable. 10. Gastroesophageal reflux disease. Continue PPI therapy. 11. Osteoporosis. Follow up with PCP. 12. History of polyarthropathy. I am holding the methotrexate in the possible setting of infection. 13. Chronic pain syndrome. Continue meds as prescribed. 14. Anemia. H and H stable. We will monitor. 15. Degenerative joint disease. Continue p.r.n. pain medications. 16. Asthma. We will continue p.r.n. albuterol, although she states she has not taken this in some time. 17. Hypertension. Continue meds as prescribed with the exception of her Bumex. 18. Nausea, vomiting. Also checking CT abdomen and pelvis as well. 19. DVT prophylaxis. I have ordered heparin subcu as she is high risk. 20. Code status. Full code. 21. Fluids, electrolytes, and nutrition. She can have a clear liquid diet. TIME SPENT: On the admission was 60 minutes, greater than half of the time spent [id number] with the patient obtaining my history and physical, the other half of the time was spent going over the plan of care with the patient and implementing the plan of care. I discussed the plan with my attending, Dr. Em; she is in agreement. ANDRÉS JACK, GIANLUCA [id number]/CPS #: [id number] TIKI
[2017-11-21 05:56] LABS: ABS Basophils 0 10^3/ul (0-0.2); ABS Eosinophils 0.3 10^3/ul (0-0.6); ABS Monocytes 1.1 10^3/ul (0-0.8); ABS Neutrophils 3.6 10^3/ul (1.5-7.7); ABS Nucleated RBC 0 10^3/ul; Eosinophil % 3.3 % (0-6); Hematocrit 38 % (35-47); Hemoglobin 12.4 g/dl (12.0-16.0); Lymphocyte % 49.3 % (25-47); Mean Corpuscular HGB Conc 32 g/dl (31-36); Mean Corpuscular Hemoglobin 27 pg (27-31); Mean Corpuscular Volume 83 fL (80-97); Mean Platelet Volume 7.7 um3 (7.4-10.4); Nucleated Red Blood Cells % 0.2; Platelet Count 183 10^3/ul (150-450); Red Blood Count 4.61 10^6/ul (4.00-5.40); Red Cell Distribution Width 18 % (10.5-15)
[2017-11-21 07:03] LABS: EGFR Non-African American 29.4 (>60)
--- NOTE | 2017-11-21 07:38 | RAD ---
HISTORY: syncope COMPARISONS: May 21, 2017 VIEWS: 1: frontal AP view of the chest at 6:41 PM FINDINGS: LINES AND TUBES: None. CARDIOMEDIASTINAL SILHOUETTE: The cardiomediastinal silhouette is normal for portable technique. PLEURA: The costophrenic angles are sharp. No pleural abnormalities are noted. LUNG PARENCHYMA: The lungs are clear. ABDOMEN: The upper abdomen is clear. There is no subphrenic gas. BONES AND SOFT TISSUES: No bone or soft tissue abnormalities are noted. IMPRESSION: NO ACTIVE CARDIOPULMONARY DISEASE. R1
[2017-11-21] MEDS: Insulin LISPRO* 1 UNITS UNIT SUBCUT SCH ×3 (08:02→17:24)
[2017-11-21] MEDS ORDERED: HYDROmorphone INJ1* 1 MG/ML SYRINGE IV ONE (09:00)
--- NOTE | 2017-11-21 10:06 | ECHO ---
Patient: JESSICA GRAFF [facility] Rec#: [id number] : 1950 Date: 11/21/2017 Age: 67y Height: 163 cm / 64.2 in Weight: 70 kg / 154.3 lbs Sex: F BSA: 1.8 Room#: 434 Admit Date#: 11/20/2017 Type: Inpatient Referring: Andrés Jack NP Reading: Mary Negro MD Front Desk Manager: Iris Allen RN RDCS CC: Anila Saul MD Transthoracic Echocardiogram Indication: Syncope BP: 142/63 HR: 65 Rhythm: NSR Findings History: HTN, HLD, DM, asthma, hepatitis, migraines, SVC syndrome Technical Comments: The study is technically limited due to poor acoustic windows. Left Ventricle: The left ventricular chamber size is normal. Septal wall hypertrophy is observed. Global left ventricular wall motion and contractility are within normal limits. The left ventricle appears hyperdynamic. The estimated ejection fraction is greater than 65%. There is no consistent Doppler evidence of clinically significant diastolic dysfunction. The patient was unable to perform a Valsalva maneuver. Left Atrium: The left atrial chamber size is normal. Right Ventricle: The right ventricular cavity size is normal. The right ventricular global systolic function is normal. Right Atrium: The right atrium is not well visualized. Aortic Valve: The aortic valve leaflets are mildly thickened. There is no evidence of aortic regurgitation. There is no evidence of aortic stenosis. Mitral Valve: The mitral valve leaflets are mildly thickened. There is a trace of mitral regurgitation. There is no evidence of mitral stenosis. Tricuspid Valve: The tricuspid valve leaflets are normal. There is trace to mild tricuspid regurgitation. The right ventricular systolic pressure is estimated at 35 mmHg. There is evidence of borderline pulmonary hypertension. There is no tricuspid stenosis. Pulmonic Valve: The pulmonic valve structure is not well visualized. There is no evidence of pulmonic regurgitation. There is no pulmonic stenosis. Pericardium: There is no significant pericardial effusion. A pericardial fat pad is visualized. Aorta: There is no dilatation of the ascending aorta. There is no dilatation of the aortic arch. There is no dilation of the aortic root. Pulmonary Artery: The main pulmonary artery is not well visualized. Venous: The inferior vena cava is dilated. There is a greater than 50% respiratory change in the inferior vena cava dimension. Conclusions Global left ventricular wall motion and contractility are within normal limits. Septal wall hypertrophy is observed. The left ventricle appears hyperdynamic. The estimated ejection fraction is greater than 65%. The right ventricular global systolic function is normal. The aortic valve leaflets are mildly thickened with normal function. There is a trace of mitral regurgitation. There is trace to mild tricuspid regurgitation. There is evidence of borderline pulmonary hypertension estimated at 35 mmHg. Compared with prior echo of 05/03/17, EF is stable, valve function is stable. No significant changes. Measurements Name Value Normal Range RVIDd (AP) 2D 2.5 cm (0.9 - 2.6) RVDdMajor (2D) 2.5 cm (2.2 - 4.4) RAd ISD 4CH 3.7 cm (3.4 - 4.9) IVSd (2D) 1.1 cm (0.6 - 1) LVPWd (2D) 0.9 cm (0.6 - 1) LVIDd (2D) 3.6 cm (3.6 - 5.4) Aortic Annulus 1.9 cm (1.4 - 2.6) Ao root diameter (2D) 3.1 cm (2.1 - 3.5) Ascending Ao 3.1 cm (2.1 - 3.4) Aortic arch 2.4 cm (1.8 - 3.4) LA dimension (AP) 2D 2.4 cm (2.3 - 3.8) LAd ISD 4CH 3.3 cm (2.9 - 5.3) LA ISD 4CH W 3.1 cm (2.5 - 4.5) Name Value Normal Range MV E-wave Vmax 1.2 m/sec - MV deceleration time 254 msec - MV A-wave Vmax 1.1 m/sec - MV E:A ratio 1.1 ratio - LV septal e' Vmax 0.1 m/sec - LV lateral e' Vmax 0.1 m/sec - LV E:e' septal ratio 12 ratio - LV E:e' lateral ratio 12 ratio - Name Value Normal Range AV Vmax 1.6 m/sec - AV VTI 30.4 cm - AV peak gradient 10 mmHg - AV mean gradient 5 mmHg - LVOT Vmax 1.2 m/sec - LVOT VTI 28.2 cm - LVOT peak gradient 6 mmHg - LVOT mean gradient 3 mmHg - ANGELES Vmax 0.67 m/sec - Name Value Normal Range TR Vmax 2.6 m/sec - TR peak gradient 27 mmHg - RAP 8 mmHg - RVSP 35 mmHg - IVC diameter 2.2 cm - Name Value Normal Range PV Vmax 0.87 m/sec -
[2017-11-21] MEDS: DEXLANSOPRAZOLE 60 MG PO SCH (10:53)
[2017-11-21] MEDS: Potassium Chloride LIQUID* 20 MEQ PACKET PO SCH ×2 (10:56→20:08)
[2017-11-21] MEDS: Atenolol TAB* 25 MG PO SCH (10:58)
[2017-11-21] MEDS: NS 0.9% w/ 40 Meq KCL 1000 ML* 1,000 ML IV SCH ×2 (10:59→20:08)
[2017-11-21] MEDS: Nitrofurantoin Macrocrystals* 100 MG CAP PO SCH ×2 (12:31→20:08)
[2017-11-21] MEDS: Cetirizine* 10 MG TAB PO SCH (17:33)
[2017-11-21] MEDS: Atorvastatin* 10 MG TAB PO SCH (20:08)
[2017-11-21 20:09] LABS: INR 1.05 (0.77-1.02)
[2017-11-21] MEDS: Melatonin 3 MG TAB PO PRN (20:09)
[2017-11-21] MEDS ORDERED: Insulin GLARGINE(*) 1 UNITS UNIT SUBCUT SCH (21:00)
[2017-11-22] MEDS: HYDROmorphone INJ1* 1 MG/ML SYRINGE IV SLOW PU PRN ×6 (00:27→23:04)
[2017-11-22] MEDS: Heparin VIAL(*) 5000 UNITS/ML VIAL (FIVE THOUSAND) SUBCUT SCH ×3 (05:02→20:29)
[2017-11-22] MEDS: NS 0.9% w/ 40 Meq KCL 1000 ML* 1,000 ML IV SCH (05:02)
[2017-11-22 06:03] LABS: ABS Basophils 0 10^3/ul (0-0.2); ABS Eosinophils 0.3 10^3/ul (0-0.6); ABS Lymphocytes 4.2 10^3/ul (1.0-4.8); ABS Monocytes 0.8 10^3/ul (0-0.8); ABS Neutrophils 2.3 10^3/ul (1.5-7.7); ABS Nucleated RBC 0 10^3/ul; Hematocrit 37 % (35-47); Hemoglobin 12.1 g/dl (12.0-16.0); Lymphocyte % 54.5 % (25-47); Mean Corpuscular HGB Conc 33 g/dl (31-36); Mean Corpuscular Hemoglobin 27 pg (27-31); Mean Corpuscular Volume 82 fL (80-97); Nucleated Red Blood Cells % 0.1; Platelet Count 177 10^3/ul (150-450); Red Blood Count 4.47 10^6/ul (4.00-5.40); Red Cell Distribution Width 18 % (10.5-15); White Blood Count 7.6 10^3/ul (3.5-10.8)
[2017-11-22 07:02] LABS: EGFR Non-African American 65.4 (>60)
[2017-11-22] MEDS: Baclofen TAB* 20 MG PO PRN ×2 (09:23→21:05)
[2017-11-22] MEDS: Potassium Chloride LIQUID* 20 MEQ PACKET PO SCH ×2 (09:24→20:29)
[2017-11-22] MEDS: Atenolol TAB* 25 MG PO SCH (09:25)
[2017-11-22] MEDS: Nitrofurantoin Macrocrystals* 100 MG CAP PO SCH ×2 (09:25→20:28)
[2017-11-22] MEDS: Insulin LISPRO* 1 UNITS UNIT SUBCUT SCH ×3 (09:26→16:53)
[2017-11-22] MEDS: DEXLANSOPRAZOLE 60 MG PO SCH (09:26)
--- NOTE | 2017-11-22 10:09 | CONSULT ---
Consult Consult: [facility] Inpatient Consult Note Date of Consult: 11/22/17 Reason for Consult: type 2 diabetes Reason for Admission: syncope ASSESSMENT: 67 yo F with long-standing, inadequately-controlled diabetes presenting with chronic GI symptoms, dehydration and syncope. Her complaints of chronic abdominal and musculoskeletal pain suggest the possibility of occult adrenal insufficiency -- this diagnosis can be excluded with high-dose (250mcg) ACTH stimulation test. Her A1c has risen in the past 3 months despite basal/ bolus insulin therapy, although she has been able to remain metabolically compensated. Her insulin requirement is approximately 40 units/day and she has expressed interest in resuming a mixed insulin regimen twice daily. High-dose insulin glargine given during this admission caused significant hypoglycemia. I recommend initiation of 4-shot regular/NPH insulin this admission, which can then be consolidated into 2-shot mixed insulin regimen at discharge when dosing is determined. Scheduled dose of regular/NPH should be adjusted to target pre- meal BG 100-180. Metformin has not been effective for her, but may be continued at low dose to avoid GI side effects. She has not used glipizide (or similar) in many years, but this is a consideration for her in the future if she is unable/unwilling to use insulin. Insulin-sparing agents such as SGLT2i or GLP1RA may also be used, with cautious use of the former in women with history of genitourinary infections. Januvia (or similar) is not effective in patients who require insulin. PLAN: - perform 250mcg ACTH stimulation test, with baseline and 60 minute cortisol levels - d/c insulin glargine - d/c insulin lispro - start regular insulin 5 units TID with meals - start regular insulin sliding-scale, as follows - add 2 unit for BG 201-250 - add 3 units for BG 251-300 - add 4 units for BG 301-350 - add 5 units for BD >351 - start NPH insulin 5 units QHS - recommend metformin XR 500mg at discharge - recommend insulin 70/30 BID at discharge (dose to be determined by regimen above) - follow-up in my clinic 2 weeks after discharge SUBJECTIVE: History of Present Illness: Mrs. Brown is a 67 yo F with history of diabetes ( A1C 9-11% in the past year, complicated by neuropathy and HHS), as well as chronic pain syndrome (migraine, fibromyalgia types), anemia, diverticular disease, DJD, asthma, hypertension, GERD, osteoporosis multiple medical intolerances. She was admitted to [facility] on 11/20/17 with worsening nausea/vomiting with syncope and dehydration. Since admission, she has experienced overnight hypoglycemia after receiving 80 units, then 40 units, the previous evening. She has not required correction during, although her appetite remains poor. She has had chronic GI symptoms ( nausea, vomiting) for several months and is increasingly frustrated by these symptoms. She gets her food through [employer] and eats no more than twice daily, with the largest meal of the day prepared by a home health aide. Type of Diabetes: Diabetes Onset: >30 years ago Complications of Diabetes: neuropathy, severe hyperglycemia Last A1c: 10.8% (7.1-11.0% in the past 12 months) Last Eye Exam: unknown Last LDL: 37 in April 2017 Last Microalbumin: negative in February 2017 Medication Regimen: Basal: glargine 80 units/day (not using consistently) Bolus: lispro 10-12 units with meals (not using) Oral Agents: metformin She has a long history of non-adherence to glucose-lowering medications, specifically insulin. 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 PMH: 1. Diabetes. 2. Demyelinating disease. 3. Migraines. 4. Fibromyalgia. 5. Peripheral neuropathy. 6. Polyarthropathy. 7. SVC syndrome. 8. GERD. 9. Osteoporosis. 10. Anemia. 11. Diverticulosis. 12. Chronic pain syndrome. 13. Degenerative joint disease. 14. Asthma. 15. Hypertension. PSH: 1. Laparoscopic cholecystectomy. 2. Exploratory laparotomy with colostomy and reversal. 3. Hysterectomy. HOME MEDICATIONS: 1. Milk of mag 30 cc p.o. b.i.d. as needed. 2. Calcium carbonate 1000 mg p.o. b.i.d. as needed. 3. Maalox 1 chew p.o. t.i.d. as needed. 4. Ysabel-C 1 tablet p.o. b.i.d. 5. Mag citrate 6 cc p.o. b.i.d. 6. Zinc oxide 1 application topically b.i.d. as needed. 7. Miconazole nitrate 2% topically b.i.d. as needed. 8. Mirvaso 1 application topically daily as needed. 9. Vitamin D 4000 units daily. 10. Methotrexate 50 mg subcu on . 11. Iron 10 cc p.o. b.i.d. with meals. 12. Estradiol 1 mg p.o. daily. 13. EpiPen 0.3 mg IM once as needed for reaction. 14. Potassium 20 mEq p.o. daily. 15. Alpha-lipoic acid 200 mg b.i.d. 16. Tenormin 12.5 mg daily. 17. Vitamin C 500 mg daily. 18. Lipitor 10 mg at bedtime. 19. Bactrim 20 mg 4 times a day as needed. 20. Astepro 2 sprays both nares b.i.d. 21. Clobetasol 1 application topically b.i.d. 22. Bumex 2 mg p.o. b.i.d. 23. Dexilant 60 mg daily. 24. Lotrisone 1 application topically b.i.d. 25. Dilaudid 8 mg every 3 hours as needed. 26. Folic acid 1 mg daily. 27. Lantus 80 units subcu at bedtime. 28. Insulin sliding scale 4 times a day as directed. 29. Levocetirizine 5 mg daily. 30. Ipratropium bromide 1 spray both nares 4 times a day as needed. 31. Linzess 290 mcg p.o. daily. 32. Metronidazole 1 application topically b.i.d. as needed. 33. Milk thistle 70 mg p.o. daily. 34. Zofran 4 mg sublingual q.4 hours p.r.n. nausea. 35. Fish oil 2000 mg p.o. b.i.d. 36. Potassium 10 mEq p.o. b.i.d. 37. Imitrex 6 mg subcu daily as needed. 38. Imitrex 100 mg p.o. daily as needed. 39. Metformin 1000 mg p.o. b.i.d. 40. Oxycodone 10 mg p.o. b.i.d. as needed. INPATIENT MEDICATIONS Acetaminophen (Tylenol Tab*) 650 mg PO Q4H PRN PRN Reason: FEVER/PAIN Albuterol (Ventolin 2.5 Mg/3 Ml Neb.Francine*) 2.5 mg INH Q2H PRN PRN Reason: SOB/WHEEZING Atenolol (Tenormin Tab*) 12.5 mg PO DAILY [facility] Last Admin: 11/22/17 09:25 Dose: 12.5 mg Atorvastatin Calcium (Lipitor*) 10 mg PO BEDTIME [facility] Last Admin: 11/21/17 20:08 Dose: 10 mg Baclofen (Lioresal Tab*) 20 mg PO QID PRN PRN Reason: PAIN Last Admin: 11/22/17 09:23 Dose: 20 mg Cetirizine HCl (Zyrtec*) 10 mg PO QPM [facility] Last Admin: 11/21/17 17:33 Dose: 10 mg Dexlansoprazole (Dexilant (Nf)) 60 mg PO DAILY [facility] Last Admin: 11/22/17 09:26 Dose: Not Given Dextrose (D50w Syringe 50 Ml*) 12.5 gm IV PUSH .FOR FS < 60 - SS PRN PRN Reason: FS < 60 Heparin Sodium (Porcine) (Heparin Vial(*)) 5,000 units SUBCUT Q8HR [facility] Last Admin: 11/22/17 05:02 Dose: 5,000 units Hydromorphone HCl (Dilaudid Inj1s*) 1 mg IV SLOW PU Q4H PRN PRN Reason: PAIN Last Admin: 11/22/17 09:20 Dose: 1 mg Hydroxyzine HCl (Atarax Tab*) 50 mg PO Q6H PRN PRN Reason: ANXIETY Last Admin: 11/21/17 21:02 Dose: 50 mg Insulin Glargine (Lantus(*)) 40 units SUBCUT BEDTIME [facility] Last Admin: 11/21/17 20:07 Dose: 40 units Insulin Human Lispro (Humalog*) 0 units SUBCUT AC [facility]; Protocol Last Admin: 11/22/17 09:26 Dose: Not Given Melatonin (Melatonin) 3 mg PO BEDTIME PRN; Protocol PRN Reason: SLEEP Last Admin: 11/21/17 20:09 Dose: 3 mg Nitrofurantoin Macrocrystals (Macrodantin*) 100 mg PO BID [facility] Last Admin: 11/22/17 09:25 Dose: 100 mg Potassium Chloride (Klor-Con Liquid*) 20 meq PO BID [facility] Last Admin: 11/22/17 09:24 Dose: 20 meq Sumatriptan Succinate (Imitrex Tab*) 100 mg PO DAILY PRN PRN Reason: MIGRAINE HEADACHE Last Admin: 11/20/17 22:57 Dose: 100 mg Allergies/Intolerances: numerous (reviewed) Social History: She lives alone with cat(s). No tobacco or alcohol. Family History: Mother had a history of CHF. Father had a history of stomach cancer. Review of Systems: As above. 12 system review is otherwise negative. OBJECTIVE: Vital Signs: Temp Pulse Resp BP Pulse Ox 97.8 F 69 18 143/60 98 11/22/17 07:32 11/22/17 07:32 11/22/17 09:20 11/22/17 07:32 11/22/17 07:32 General: alert, pleasant, oriented, no distress ENT: neck supple, no thyromegaly, no bruit is heard Chest: CTAB, no wheezing or crackles CV: RRR, no murmur Abdomen: soft, non-tender Extremities: no edema, distal pulses intact Skin: warm, dry, no rash Neuro: grossly intact motor/sensory in extremities Psych: restricted affect, pleasant Glucose Results Document 11/21/17 07:52 47 Document 11/21/17 08:33 69 Document 11/21/17 09:47 117 Document 11/21/17 11:49 77 Document 11/21/17 16:49 85 11/22/17 05:37 11/22/17 05:37 INR (Anticoag Therapy) 1.05 (0.77-1.02) H 11/21/17 19:50 APTT 29.2 seconds (26.0-36.3) 11/21/17 19:50 Total Bilirubin 0.60 mg/dL (0.2-1.0) 11/20/17 16:30 AST 21 U/L (13-39) 11/20/17 16:30 ALT 15 U/L (7-52) 11/20/17 16:30 Alkaline Phosphatase 107 U/L (34-104) H 11/20/17 16:30 Total Protein 6.6 g/dL (6.4-8.9) 11/20/17 16:30 Albumin 3.8 g/dL (3.2-5.2) 11/20/17 16:30 Globulin 2.8 g/dL (2-4) 11/20/17 16:30 Albumin/Globulin Ratio 1.4 (1-3) 11/20/17 16:30 TSH 3.68 mcIU/mL (0.34-5.60) 11/20/17 16:30 11/20/17 11/20/17 16:30 19:20 Troponin I 0.00 0.00
[2017-11-22] MEDS: SUMAtriptan TAB* 100 MG PO PRN ×2 (10:36→21:09)
--- NOTE | 2017-11-22 10:55 | RAD ---
HISTORY: cough COMPARISONS: November 20, 2017 VIEWS: 2: Frontal and lateral views of the chest. FINDINGS: CARDIOMEDIASTINAL SILHOUETTE: The cardiomediastinal silhouette is normal. CHELA: The chela are normal. PLEURA: The costophrenic angles are sharp. No pleural abnormalities are noted. LUNG PARENCHYMA: The lungs are clear. ABDOMEN: The upper abdomen is clear. There is no subphrenic gas. BONES AND SOFT TISSUES: Degenerative changes are noted along the spine. OTHER: None. IMPRESSION: NO ACTIVE CARDIOPULMONARY DISEASE.
[2017-11-22] MEDS: hydrOXYzine HCL TAB* 50 MG PO PRN (12:53)
[2017-11-22] MEDS ORDERED: HYDROmorphone INJ* 1 MG/ML CARPUJECT SYRINGE IV ONE (16:00)
[2017-11-22] MEDS: Magnesium Hydroxide LIQ* 30 ML UDC PO PRN ×2 (16:07→20:58)
[2017-11-22] MEDS ORDERED: HYDROmorphone INJ1* 1 MG/ML SYRINGE IV ONE ×2 (17:00→20:00)
[2017-11-22] MEDS: Cetirizine* 10 MG TAB PO SCH (17:48)
[2017-11-22] MEDS: Insulin REGULAR(*) 1 UNITS UNIT SUBCUT SCH (17:49)
[2017-11-22] MEDS: Atorvastatin* 10 MG TAB PO SCH (20:27)
[2017-11-22] MEDS: Insulin NPH(*) 1 UNITS UNIT SUBCUT SCH (20:27)
[2017-11-22] MEDS: Melatonin 3 MG TAB PO PRN (23:05)
[2017-11-23] MEDS: Magnesium Hydroxide LIQ* 30 ML UDC PO PRN (02:09)
[2017-11-23] MEDS: Baclofen TAB* 20 MG PO PRN ×3 (02:12→23:58)
[2017-11-23] MEDS: Calcium Carbonate CHEW TAB* 500 MG (TUMS) PO PRN ×2 (02:33→22:42)
[2017-11-23] MEDS: HYDROmorphone INJ1* 1 MG/ML SYRINGE IV SLOW PU PRN ×6 (03:07→22:29)
[2017-11-23] MEDS: hydrOXYzine HCL TAB* 50 MG PO PRN ×2 (03:50→15:20)
[2017-11-23 06:04] LABS: ABS Basophils 0 10^3/ul (0-0.2); ABS Eosinophils 0.2 10^3/ul (0-0.6); ABS Lymphocytes 4.1 10^3/ul (1.0-4.8); ABS Monocytes 0.9 10^3/ul (0-0.8); ABS Neutrophils 3.1 10^3/ul (1.5-7.7); ABS Nucleated RBC 0 10^3/ul; Eosinophil % 2.7 % (0-6); Hematocrit 41 % (35-47); Hemoglobin 13.3 g/dl (12.0-16.0); Lymphocyte % 48.7 % (25-47); Mean Corpuscular HGB Conc 33 g/dl (31-36); Mean Corpuscular Hemoglobin 27 pg (27-31); Mean Corpuscular Volume 82 fL (80-97); Mean Platelet Volume 8.3 um3 (7.4-10.4); Nucleated Red Blood Cells % 0.1; Platelet Count 173 10^3/ul (150-450); Red Blood Count 4.95 10^6/ul (4.00-5.40); Red Cell Distribution Width 19 % (10.5-15); White Blood Count 8.3 10^3/ul (3.5-10.8)
[2017-11-23] MEDS: Heparin VIAL(*) 5000 UNITS/ML VIAL (FIVE THOUSAND) SUBCUT SCH ×3 (06:22→21:21)
[2017-11-23 06:23] LABS: EGFR Non-African American 68.2 (>60)
[2017-11-23] MEDS: Insulin REGULAR(*) 1 UNITS UNIT SUBCUT SCH ×6 (10:13→18:25)
[2017-11-23] MEDS: DEXLANSOPRAZOLE 60 MG PO SCH (10:15)
[2017-11-23] MEDS ORDERED: Metformin ER (NF) 500 MG TAB PO SCH (11:00)
[2017-11-23] MEDS: Atenolol TAB* 25 MG PO SCH (11:17)
[2017-11-23] MEDS: oxyCODONE SR TAB(*) 10 MG TAB.SR PO SCH ×2 (11:18→21:19)
[2017-11-23] MEDS: Potassium Chloride LIQUID* 20 MEQ PACKET PO SCH ×2 (11:19→21:20)
[2017-11-23] MEDS: Nitrofurantoin Macrocrystals* 100 MG CAP PO SCH ×2 (11:28→21:20)
[2017-11-23] MEDS ORDERED: Cosyntropin* 0.25 MG VIAL IV ONE (12:30)
[2017-11-23] MEDS: SUMAtriptan TAB* 100 MG PO PRN (15:31)
[2017-11-23] MEDS: PTO:Linaclotide (NF) 290 MCG CAP PO SCH (16:38)
[2017-11-23] MEDS: Cetirizine* 10 MG TAB PO SCH (18:26)
[2017-11-23] MEDS: Atorvastatin* 10 MG TAB PO SCH (21:20)
[2017-11-23] MEDS: Insulin NPH(*) 1 UNITS UNIT SUBCUT SCH (21:21)
[2017-11-23] MEDS: Melatonin 3 MG TAB PO PRN (23:58)
[2017-11-24] MEDS: HYDROmorphone INJ1* 1 MG/ML SYRINGE IV SLOW PU PRN ×4 (01:31→11:51)
[2017-11-24] MEDS: hydrOXYzine HCL TAB* 50 MG PO PRN (04:49)
[2017-11-24] MEDS: Heparin VIAL(*) 5000 UNITS/ML VIAL (FIVE THOUSAND) SUBCUT SCH ×3 (05:40→21:25)
[2017-11-24] MEDS: oxyCODONE SR TAB(*) 10 MG TAB.SR PO SCH ×2 (08:28→21:24)
[2017-11-24] MEDS: Nitrofurantoin Macrocrystals* 100 MG CAP PO SCH ×2 (08:28→21:30)
[2017-11-24] MEDS: Baclofen TAB* 20 MG PO PRN ×3 (08:28→17:57)
[2017-11-24] MEDS: Atenolol TAB* 25 MG PO SCH (08:29)
[2017-11-24] MEDS: Potassium Chloride LIQUID* 20 MEQ PACKET PO SCH ×2 (08:37→21:24)
[2017-11-24] MEDS: Insulin REGULAR(*) 1 UNITS UNIT SUBCUT SCH ×6 (08:38→17:51)
[2017-11-24] MEDS: PTO:Linaclotide (NF) 290 MCG CAP PO SCH (08:40)
[2017-11-24] MEDS: DEXLANSOPRAZOLE 60 MG PO SCH (08:40)
--- NOTE | 2017-11-24 10:27 | RAD ---
Indication: RIGHT shoulder pain and bruising following injury. Comparison: April 22, [address] Technique: Internal rotation AP, external rotation Grashey, scapular Y, axillary views RIGHT shoulder REPORT AND IMPRESSION: #. Negative for fracture or articular malalignment. #. Moderately severe acromioclavicular joint osteoarthritis and moderate inferior acromial bone spur. #. Negative for significant glenohumeral joint space narrowing. #. Small focus of calcific tendinopathy at the greater tuberosity insertion. #. Unremarkable soft tissue contours.
[2017-11-24] MEDS ORDERED: SUMAtriptan SQ* 6 MG/0.5 ML VIAL SUBCUT PRN (13:53)
[2017-11-24] MEDS: HYDROMORPHONE 8 MG PO PRN ×3 (14:54→21:24)
[2017-11-24] MEDS: Cetirizine* 10 MG TAB PO SCH (17:51)
[2017-11-24] MEDS: hydrOXYzine HCL TAB* 25 MG PO PRN (21:25)
[2017-11-24] MEDS: Atorvastatin* 10 MG TAB PO SCH (21:25)
[2017-11-24] MEDS: Insulin NPH(*) 1 UNITS UNIT SUBCUT SCH (21:25)
[2017-11-25] MEDS: Melatonin 3 MG TAB PO PRN (00:42)
[2017-11-25] MEDS: HYDROMORPHONE 8 MG PO PRN ×5 (00:42→21:15)
[2017-11-25] MEDS: Baclofen TAB* 20 MG PO PRN ×2 (00:42→14:49)
[2017-11-25] MEDS: hydrOXYzine HCL TAB* 50 MG PO PRN ×2 (02:32→17:05)
[2017-11-25] MEDS: Heparin VIAL(*) 5000 UNITS/ML VIAL (FIVE THOUSAND) SUBCUT SCH ×3 (05:59→21:16)
--- NOTE | 2017-11-25 06:23 | PN ---
Progress Note - Progress Note Date of Service: 11/25/17 Note: [facility] Inpatient Consult Note Reason for Consult: type 2 diabetes Reason for Admission: dehydration ASSESSMENT: 67 yo F with inadequately-controlled diabetes, admitted for syncope and dehydration. Her fingerstick BG have remained 140-230 in the past 48 hours on current R/N insulin regimen at 20 units/day.. Her estimated insulin requirement is approximately 30-40 units/day. She is no longer experiencing hypoglycemia and had a normal response to ACTH stimulation. PLAN: - increase regular insulin to 6 units TID-AC - increase NPH insulin to 6 units QHS - continue current correction insulin scale - recommend consolidating 4-shot regimen to 2-shot regimen at discharge - 70/30 insulin 16 units AM with first meal of the day - 70/30 insulin 8 units PM with last meal of the day SUBJECTIVE: Patient not examined or interviewed. OBJECTIVE: 11/22/17 11/22/17 11/22/17 05:37 07:41 12:09 WBC RBC Hgb Hct MCV MCH MCHC RDW Plt Count MPV Neut % (Auto) Lymph % (Auto) [place] % (Auto) Eos % (Auto) Baso % (Auto) Absolute Neuts (auto) Absolute Lymphs (auto) Absolute Monos (auto) Absolute Eos (auto) Absolute Basos (auto) Absolute Nucleated RBC Nucleated RBC % Sodium 143 Potassium 4.2 Chloride 114 H Carbon Dioxide 24 Anion Gap 5 BUN 10 Creatinine 0.86 Est GFR ( Amer) 79.2 Est GFR (Non-Af Amer) 65.4 BUN/Creatinine Ratio 11.6 Glucose 67 L POC Glucose (mg/dL) 92 159 H Calcium 8.3 L Phosphorus 2.2 L Magnesium 1.9 C-Reactive Protein 1.96 Cortisol 11/22/17 11/23/17 11/23/17 16:20 05:34 05:34 WBC 8.3 RBC 4.95 Hgb 13.3 Hct 41 MCV 82 MCH 27 MCHC 33 RDW 19 H Plt Count 173 MPV 8.3 Neut % (Auto) 36.9 L Lymph % (Auto) 48.7 H [place] % (Auto) 11.3 H Eos % (Auto) 2.7 Baso % (Auto) 0.4 Absolute Neuts (auto) 3.1 Absolute Lymphs (auto) 4.1 Absolute Monos (auto) 0.9 H Absolute Eos (auto) 0.2 Absolute Basos (auto) 0 Absolute Nucleated RBC 0 Nucleated RBC % 0.1 Sodium 141 Potassium 4.7 Chloride 111 Carbon Dioxide 22 Anion Gap 8 BUN 9 Creatinine 0.83 Est GFR ( Amer) 82.5 Est GFR (Non-Af Amer) 68.2 BUN/Creatinine Ratio 10.8 Glucose 154 H POC Glucose (mg/dL) 115 H Calcium 9.2 Phosphorus Magnesium C-Reactive Protein Cortisol 11/23/17 11/23/17 11/23/17 08:21 11:29 16:24 WBC RBC Hgb Hct MCV MCH MCHC RDW Plt Count MPV Neut % (Auto) Lymph % (Auto) [place] % (Auto) Eos % (Auto) Baso % (Auto) Absolute Neuts (auto) Absolute Lymphs (auto) Absolute Monos (auto) Absolute Eos (auto) Absolute Basos (auto) Absolute Nucleated RBC Nucleated RBC % Sodium Potassium Chloride Carbon Dioxide Anion Gap BUN Creatinine Est GFR ( Amer) Est GFR (Non-Af Amer) BUN/Creatinine Ratio Glucose POC Glucose (mg/dL) 145 H 273 H 179 H Calcium Phosphorus Magnesium C-Reactive Protein Cortisol 11/23/17 11/23/17 11/23/17 17:07 18:16 18:47 WBC RBC Hgb Hct MCV MCH MCHC RDW Plt Count MPV Neut % (Auto) Lymph % (Auto) [place] % (Auto) Eos % (Auto) Baso % (Auto) Absolute Neuts (auto) Absolute Lymphs (auto) Absolute Monos (auto) Absolute Eos (auto) Absolute Basos (auto) Absolute Nucleated RBC Nucleated RBC % Sodium Potassium Chloride Carbon Dioxide Anion Gap BUN Creatinine Est GFR ( Amer) Est GFR (Non-Af Amer) BUN/Creatinine Ratio Glucose POC Glucose (mg/dL) Calcium Phosphorus Magnesium C-Reactive Protein Cortisol 11.07 33.51 35.39 11/24/17 11/24/17 11/24/17 07:34 12:14 16:12 WBC RBC Hgb Hct MCV MCH MCHC RDW Plt Count MPV Neut % (Auto) Lymph % (Auto) [place] % (Auto) Eos % (Auto) Baso % (Auto) Absolute Neuts (auto) Absolute Lymphs (auto) Absolute Monos (auto) Absolute Eos (auto) Absolute Basos (auto) Absolute Nucleated RBC Nucleated RBC % Sodium Potassium Chloride Carbon Dioxide Anion Gap BUN Creatinine Est GFR ( Amer) Est GFR (Non-Af Amer) BUN/Creatinine Ratio Glucose POC Glucose (mg/dL) 178 H 182 H 230 H Calcium Phosphorus Magnesium C-Reactive Protein Cortisol
[2017-11-25] MEDS: PTO:Linaclotide (NF) 290 MCG CAP PO SCH (07:22)
[2017-11-25] MEDS: hydrOXYzine HCL TAB* 25 MG PO PRN (07:22)
[2017-11-25] MEDS: oxyCODONE SR TAB(*) 10 MG TAB.SR PO SCH ×2 (08:10→21:15)
[2017-11-25] MEDS: Potassium Chloride LIQUID* 20 MEQ PACKET PO SCH ×2 (08:10→21:16)
[2017-11-25] MEDS: Insulin REGULAR(*) 1 UNITS UNIT SUBCUT SCH ×6 (08:10→17:05)
[2017-11-25] MEDS: DEXLANSOPRAZOLE 60 MG PO SCH (08:10)
[2017-11-25] MEDS: Nitrofurantoin Macrocrystals* 100 MG CAP PO SCH ×2 (08:10→21:16)
[2017-11-25] MEDS: Atenolol TAB* 25 MG PO SCH (08:10)
[2017-11-25] MEDS: Cetirizine* 10 MG TAB PO SCH (17:05)
[2017-11-25] MEDS ORDERED: Insulin NPH(*) 1 UNITS UNIT SUBCUT SCH (21:00)
[2017-11-25] MEDS: Atorvastatin* 10 MG TAB PO SCH (21:17)
[2017-11-26] MEDS: Baclofen TAB* 20 MG PO PRN (01:35)
[2017-11-26] MEDS: HYDROMORPHONE 8 MG PO PRN ×2 (01:35→08:14)
[2017-11-26] MEDS: Melatonin 3 MG TAB PO PRN (01:35)
[2017-11-26] MEDS: hydrOXYzine HCL TAB* 50 MG PO PRN (04:20)
[2017-11-26] MEDS: Heparin VIAL(*) 5000 UNITS/ML VIAL (FIVE THOUSAND) SUBCUT SCH (07:23)
[2017-11-26] MEDS: Insulin REGULAR(*) 1 UNITS UNIT SUBCUT SCH ×2 (08:04→08:15)
[2017-11-26] MEDS: Potassium Chloride LIQUID* 20 MEQ PACKET PO SCH (08:13)
[2017-11-26] MEDS: oxyCODONE SR TAB(*) 10 MG TAB.SR PO SCH (08:13)
[2017-11-26] MEDS: Atenolol TAB* 25 MG PO SCH (08:15)
[2017-11-26] MEDS: Nitrofurantoin Macrocrystals* 100 MG CAP PO SCH (08:15)
[2017-11-26] MEDS: DEXLANSOPRAZOLE 60 MG PO SCH (08:15)
[2017-11-26] MEDS: PTO:Linaclotide (NF) 290 MCG CAP PO SCH (08:16)
[2017-11-26 08:20] VITALS: BP 102/48
--- NOTE | 2017-11-26 15:07 | DS ---
CC: Dr. Coleman Coch * DISCHARGE SUMMARY: DATE OF ADMISSION: 11/20/17 DATE OF DISCHARGE: 11/26/17 DISCHARGE DIAGNOSES: 1. Urinary tract infection. 2. Medication noncompliance. 3. Diabetes mellitus, uncontrolled. 4. Acute kidney injury due to volume depletion. 5. Chronic pain. 6. Hyperlipidemia. 7. Allergies. 8. Gastroesophageal reflux disease. 9. Pruritus. 10. Chronic constipation. 11. Insomnia. 12. Chronic demyelinating disease. 13. Fibromyalgia. 14. Peripheral neuropathy. 15. Polyarthropathy. 16. History of superior vena cava syndrome. 17. Osteoporosis. 18. Diverticulosis. 19. Degenerative joint disease. 20. History of asthma. 21. History of hypertension. 22. Migraine headaches. 23. Hypokalemia. HISTORY: Keila Brown is a 67-year-old woman admitted on 11/20/17 with syncope, nausea, vomiting, diarrhea in the setting of urinary tract infection, which she had not taken medication for at home. She had also not been taking insulin regularly. Please see the dictated admission note for details of the present illness, past medical history, family history, social and personal history, review of systems, and physical examination. LABORATORY DATA: Initial labs: CBC: WBC 14, H and H 13.2/41, MCV 82, PLT 254k , sed rate 15. CBC on 11/23/17, WBC 8.3, H and H 13.3/41, MCV 82, PLT 173k. INR 1.05, PTT 29.2. Chemistries on admission, sodium 139, potassium 3.5, chloride 99, CO2 of 30, BUN and creatinine 26/2.82, glucose 156, rest of the comprehensive metabolic panel was within normal limits, except for alk phos of 107. Troponin was normal at 0. TSH was normal at 3.68. Potassium subsequently went down as low as 3.1. CRP was normal at 1.60, repeat 1.96. Lactic acid was elevated at 3.2 on admission, came down to 1.4 later that day. Magnesium was normal at 1.9. Cortisone stimulation test during admission 11.07, 30 minutes 33.51, 60 minutes 35.35 normal. Serial troponins were normal. Urinalysis straw, cloudy, specific gravity 1.03, pH 6. Dipsticks positive for blood 1+, esterase 3+, wbc's 3+, rbc's 2+, bacteria 1+. Random creatinine 36.64 , random sodium 45. Urine glucose negative. Influenza A and B were negative. Urine culture grew out Staph hemolytics, greater than 75,000 to 100,000 colonies. IMAGING: Abdominal pelvis CT on 11/20/17 showed no acute abdominal pathology, prominent varicosities along the anterior abdominal and chest wall with chronic findings as noted. Brain CT showed no acute intracranial pathology, unchanged left parietal convexity or arachnoid cyst. Chest x-ray on 11/20/17 showed no acute cardiopulmonary disease. Chest x-ray on 11/22/17 was unchanged. Shoulder x-ray on 11/24/17 showed degenerative changes without fracture. EKGs read as sinus bradycardia, otherwise normal. Transthoracic echocardiogram on showed normal function of the left ventricle and right ventricle. There was septal wall hypertrophy. The estimated EF was greater than 65%. There was a trace of mitral regurgitation, trace to mild tricuspid regurgitation, borderline pulmonary hypertension at 35 mmHg, felt to be stable, no changes from 05/03/17. HOSPITAL COURSE: The patient was admitted. She was volume depleted. She received IV fluids. It was felt that her syncope was due to hypovolemia. Her troponins were followed. She did not have an KS. It was felt that her elevated lactic acid level was due to metformin use with acute renal failure. Cultures were done. She had UTI. She received antibiotics for the urinary tract infection. She was continued on Lantus, lispro sliding scale initially. She was seen in consultation by Dr. Jared Henderson for Endocrinology. He switched her to NPH and regular. Imitrex was given for her migraines. She was continued on IV Dilaudid for her pain and then subsequently switched to p.o. Dilaudid [place]. She was continued on PPI for gastroesophageal reflux disease. Methotrexate was held in the setting of infection. She was a full code. She was initially placed on a clear liquid diet, subsequently placed on consistent carbohydrate diet, which she did not like, so then put on a regular diet. She gradually improved. By the time of discharge, she was walking in hallways. Her potassium had been repleted. She denied depression. It was felt, however, that she did have some significant depression. She was restarted on her Linzess for constipation. At the time of discharge, she is to be on a regular diet. Activity as per usual. Her medications are as follows: 1. Metformin XR 500 mg once a day. 2. Insulin 70/30, 16 units before breakfast and 8 units before dinner. 3. Bumetanide 2 mg twice a day. 4. Ondansetron 4 mg every 4 hours as needed for nausea. 5. Dexilant 60 mg once a day. 6. Linzess 290 mcg once a day. 7. Levocetirizine 5 mg once a day. 8. Hydromorphone 8 mg 7 per day as needed for pain. 9. Sumatriptan 6 mg subcu or 100 mg p.o. as needed for migraine. 10. Potassium chloride 20 mEq once a day. 11. Estradiol 1 mg once a day. 12. Atenolol 25 mg one-half pill daily. 13. Atorvastatin 10 mg one-half pill daily. 14. Oxycodone extended release 10 mg every 12 hours. 15. Folic acid 1 mg once a day. 16. Vitamin C 100 mg once a day. 17. Methotrexate 60 mg weekly. 18. Baclofen 20 mg 4 times a day as needed for muscle spasm. 19. Azelastine nasal spray 0.15%, 2 sprays twice a day. 20. Ipratropium nasal spray 0.06%, 4 times a day as needed. 21. Nitrofurantoin 100 mg twice a day for 2 more days. FOLLOWUP: She is to follow up with me in 1 week, at which time she should have blood work, CBC, and a BMP. [id number]/[facility] #: [id number] TIKI
== END 2017-11-26 12:00 | disposition home health service (06) | DRG 690 ==
LOC: ED 15:21 → MEDTELE 18:02 → OBSVTOIN 11-22 11:42
PROVIDERS: ADMIT Internal Medicine; ATTEND Internal Medicine Geriatric Medicine
DX: N39.0 Urinary tract infection, site not specified (principal); G37.9 Demyelinating disease of central nervous system, unspecified; E87.2 Acidosis; N17.9 Acute kidney failure, unspecified; I87.1 Compression of vein; G43.909 Migraine, unspecified, not intractable, without status migrainosus; M79.7 Fibromyalgia; E11.42 Type 2 diabetes mellitus with diabetic polyneuropathy; E11.618 Type 2 diabetes mellitus with other diabetic arthropathy; G89.4 Chronic pain syndrome; M19.90 Unspecified osteoarthritis, unspecified site; J45.909 Unspecified asthma, uncomplicated; I10 Essential (primary) hypertension; K21.9 Gastro-esophageal reflux disease without esophagitis; M81.0 Age-related osteoporosis without current pathological fracture; K57.90 Diverticulosis of intestine, part unspecified, without perforation or abscess without bleeding; E78.00 Pure hypercholesterolemia, unspecified; E11.36 Type 2 diabetes mellitus with diabetic cataract; F32.9 Major depressive disorder, single episode, unspecified; G35 Multiple sclerosis; E11.649 Type 2 diabetes mellitus with hypoglycemia without coma; E86.9 Volume depletion, unspecified; E87.6 Hypokalemia; E11.65 Type 2 diabetes mellitus with hyperglycemia; M25.519 Pain in unspecified shoulder; L29.9 Pruritus, unspecified; R55 Syncope and collapse; E86.0 Dehydration; E78.5 Hyperlipidemia, unspecified; K59.09 Other constipation; G47.00 Insomnia, unspecified; I08.1 Rheumatic disorders of both mitral and tricuspid valves; I27.20 Pulmonary hypertension, unspecified; Z90.49 Acquired absence of other specified parts of digestive tract; Z90.710 Acquired absence of both cervix and uterus; Z88.5 Allergy status to narcotic agent; Z88.8 Allergy status to other drugs, medicaments and biological substances; Z88.1 Allergy status to other antibiotic agents; Z88.0 Allergy status to penicillin; Z91.018 Allergy to other foods; Z91.048 Other nonmedicinal substance allergy status; Z82.49 Family history of ischemic heart disease and other diseases of the circulatory system; Z80.0 Family history of malignant neoplasm of digestive organs; Z87.891 Personal history of nicotine dependence; Z91.14 Patient's other noncompliance with medication regimen; Z79.4 Long term (current) use of insulin
CPT/HCPCS: 36415; 70450; 71045; 71046; 74176; 80048; 80053; 81003; 81015; 82533; 82570; 82947; 83605; 83735; 84100; 84300; 84443; 84484; 85025; 85610; 85652; 85730; 86140; 87040; 87077; 87086; 87186; 93005; 93306; 94640; 99283; A9270-GY; G0378; G8978-GP-CJ; G8979-GP-CI; J0834; J1170; J1644; J1815

== ENCOUNTER 2018-03-21 17:03 | Inpatient (IN) | payer MEDICARE, MEDICAID ==
--- OUTSIDE RECORDS SUMMARY | 2018-03-21 17:41 | XMS REPORT | Continuity of Care Document ---
:1950 External Reference #:[id number] Author Name Kaiden Duncan DO, MPH Address [address] [facility], [address] [place] [address] Care Team Providers Name Role Phone Ghazala Martino MD Care Team Information Supervisor [employer] Unavailable Anila Saul M.D. Primary Care Physician Unavailable Payers Type Date Identification Numbers Payment Provider Subscriber Expires: Policy Number: [id number] [employer] Jessica Brown 2013 Health PayID: [id number] [address] [address] [place] [address] Effective: 2013 Policy Number: [id number] Medicare [facility] Jessica Brown PayID: [id number] [address] [place] [address] Policy Number: [id number] Medicaid [place] Jessica Brown PayID: [id number] [address] [place] [address] Advance Directives Description No Information Available Problems Date Description Provider Status Onset: 09/03/2013 Type 2 diabetes mellitus Kaiden Duncan DO, MPH Active Family History Date Family Member(s) Problem(s) Comments Father due to Stomach Cancer () Mother due to Congestive Heart Failure () Mother due to Cancer () - kidney Mother due to COPD () Children 2 Siblings 3 Grandchildren 5 Social History Type Date Description Comments Sex Unknown Marital Status Occupation Disabled Work Status Not Currently Working Cigarette Use Former Cigarette Smoker 4 Packs Daily ETOH Use Denies alcohol use Tobacco Use Start: Unknown End: Unknown Patient is a former smoker Smoking Status Reviewed: 02/20/18 Patient is a former smoker Allergies, Adverse Reactions, Alerts Date Description Reaction Status Severity Comments 09/03/2013 Aspirin Active 09/03/2013 Benadryl Active in pink pill form 09/03/2013 Ceclor Active 09/03/2013 Clinoril Active 09/03/2013 Codeine Active 09/03/2013 Cortisone Active 09/03/2013 Cymbalta Active 09/03/2013 Darvocet Active 09/03/2013 Darvon Active 09/03/2013 Dilaudid Active generic only 09/03/2013 Doxepin Active 09/03/2013 Doxycycline Active 09/03/2013 Elavil Active 09/03/2013 Feldene Active 09/03/2013 Fentanyl Active 09/03/2013 Hydroxyquinoline Active 09/03/2013 Itraconazole Active 09/03/2013 Lanolin Active 09/03/2013 Medrol Active 09/03/2013 Morphine Active 09/03/2013 Motrin Active 09/03/2013 Naprosyn Active 09/03/2013 Nasonex Active 09/03/2013 Neurontin Active 09/03/2013 Norpramin Active 09/03/2013 Oxymorphone Active 09/03/2013 Oxycodone Active generic only 09/03/2013 Paxil Active 09/03/2013 Penicillin Active 09/03/2013 Percocet Active 09/03/2013 Percodan Active 09/03/2013 Prozac Active 09/03/2013 Savella Active 09/03/2013 Sulfasalazine Active 09/03/2013 Talc Active 09/03/2013 Talwin Nx Active 09/03/2013 Trazodone Active 09/03/2013 Tricyclics Active 09/03/2013 Ultram Active 09/03/2013 Valium Active 09/03/2013 Xanax Active 09/03/2013 Zanaflex Active 09/03/2013 Zofran Active pills only 09/03/2013 Adhesives Active tape 09/03/2013 Lanolin Active 09/03/2013 Chlorine Active 09/03/2013 Apples Active juice, applesauce 09/03/2013 Cantaloupe Active 09/03/2013 Honeydew Active 09/03/2013 [place] Lettuce Active 09/03/2013 Melon Active 09/03/2013 Black Pepper Active 09/03/2013 Peppers Active green, yellow, red 09/03/2013 Onion Active raw 09/03/2013 Cats Active 09/03/2013 Cigarette Smoke Active 09/03/2013 Dust Active 09/03/2013 Ragweed Active 10/06/2013 Nucynta rash, watery eyes, Active sinus issues, lungs filling with fluid Medications Medication Date Status Form Strength Qnty SIG Indications Ordering Provider Dilaudid 01/20 Active Tablets 8mg 210ta si-2 by Dakota bs mouth q3-4 Kaiden, hours as DO, MPH directed chronic pain patient Oxycontin 01/20 Active Tab ER 12H 10mg 60tab take one [place] Abuse-Det s tablet by Kaiden, mouth every DO, MPH 12 hours as directed chronic pain. Epiklor Active Packet 20Meq 1 daily Unknown / Folic Acid Active Tablets 1mg 1 po qd Unknown Imitrex Active Tablets 50mg 20tab 1-2 by mouth Unknown / s every day as directed Metformin HCL Active Tablets 1000mg 1 po bid Unknown / Ondansetron Active Tablets 4mg 1 q 4 hrs for Unknown HCL / nausea Clobetasol Active Cream 0.05% Unknown Propionate / Metronidazole Active Gel 1% Unknown / Fish Oil Active Capsules 1000mg 1 po tid Unknown / Vitamin D Active Tablets 1000Unit 1 po qid /0000 Maalox Active Chewtabs 600mg prn Unknown /0000 Mylanta Gas Active Capsules 125mg prn Unknown Relief Maximum /0000 Strength Tums E-X 750 Active Chewtabs 750mg prn Unknown /0000 Linzess Active Capsules 145mcg 30cap si po qd Unknown /0000 s [address] C[address] 60mg 30cap si po qd Unknown /0000 s Fluticasone Active Suspension 50mcg/Act 2 sprays in Unknown Propionate /0000 each nostril bid Azelastine HCL Active Solution 137mcg/Sp Unknown / ray Mupirocin Active Ointment 2% Unknown / Lipitor Active Tablets 10mg 1 by mouth Unknown / daily Magnesium Active Capsules 400mg Unknown /0000 Ysabel-C Active Tablets 500mg 1 by mouth Unknown twice daily Floradix Active Liquid 2 teaspoon Unknown /0000 twice daily before meals Methotrexate Active Solution 50mg/2ML inject 0.4 mL Unknown Sodium (PF) under the skin each week Baclofen Active Tablets 20mg 1 by mouth Unknown every 6-8 hours Lasix Active Tablets 20mg bid Unknown Clotrimazole/B Active Cream 1-0.05% Unknown etamethasone Dipropionate Lidocaine Active Cream 4% sig: apply Unknown cream to affected area three times a day. chronic pain patient Sumatriptan Active Solution 6mg/0.5ML Unknown Succinate Auto-Inject Novolin 70/30 Active Supn (70-30)10 Unknown Flexpen 0Unit/ML Cane 10/26 Hx Misc 1unit use as Dakota s directed Guero Richey DO, MPH 12/07 Alpha-Lipoic 09/09 Hx Capsules 200mg 60cap si by [place], s mouth every Kaiden, - 12 hours DO, MPH 01/30 Oxycontin 01/20 Hx Tab ER 12H 10mg 30tab take one [place] Abuse-Det s tablet by Kaiden, - mouth every DO, MPH 12/07 12 hours directed chronic pain, second script- fill in 2 weeks Dilaudid 09/11 Hx Tablets 8mg 105ta si-2 by [place] bs mouth q3-4h Kaiden, - as directed DO, MPH 12/07 chronic pain, second script to be filled in 2 weeks Nucynta 09/11 Hx Tablets 50mg 60tab si po [place], s q12h ud Kaiden, Guero DO, MPH 10/06 chronic pain patient Aciphex Hx Tablets DR 20mg 30tab 1 po bid ud s - 02/20 Estradiol Hx Tablets 1mg 1 po q am - 02/20 Lactulose Hx Solution 10GM/15ML 1bott 1 tablespoon le bid for - constipation 02/20 Topiramate Hx Tablets 50mg 1 po bid - 02/20 Zyrtec Allergy Hx Tablets 10mg 60tab Si PO Unknown /0000 s Q12H - 03/18 Lantus Hx Solution 100Unit/M 20 units Unknown /0000 L - 06/02 Ciprofloxacin Hx Solution 0.2% Unknown HCL / - 02/20 Levemir Hx Solution 100Unit/M 44 units at Unknown /0000 L night - 02/20 Lantus Hx Solution 100Unit/M 47 units Unknown Solostar /0000 Pen-Inject L daily - 02/20 Jardiance Hx Tablets 10mg Unknown / - 02/20 Levofloxacin Hx Tablets 250mg Unknown / - 02/20 Immunizations Description No Information Available Vital Signs Date Vital Result Comment 02/20/2018 3:35pm BP Systolic 122 mmHg BP Diastolic 74 mmHg Heart Rate 76 /min Respiratory Rate 20 /min Height 64 inches 5'4" Weight 150.00 lb Pain Level 8 Pain at this time. Pain Level With Medicine 8 on average with meds Pain Level Without Medicine 11/28 without meds BMI (Body Mass Index) 25.7 kg/m2 01/18/2018 2:46pm BP Systolic 122 mmHg BP Diastolic 74 mmHg Heart Rate 76 /min Respiratory Rate 20 /min Height 64 inches 5'4" Weight 179.00 lb Pain Level 7 Pain at this time. Pain Level With Medicine 6 on average with meds Pain Level Without Medicine 11/28 without meds BMI (Body Mass Index) 30.7 kg/m2 12/18/2017 3:05pm BP Systolic 130 mmHg BP Diastolic 78 mmHg Heart Rate 74 /min Respiratory Rate 20 /min Height 64 inches 5'4" Weight 178.00 lb Pain Level 6 Pain at this time. Pain Level With Medicine 5 on average with meds Pain Level Without Medicine 11/28 without meds BMI (Body Mass Index) 30.6 kg/m2 11/15/2017 3:44pm BP Systolic 122 mmHg BP Diastolic 74 mmHg Heart Rate 76 /min Respiratory Rate 20 /min Height 64 inches 5'4" Weight 172.00 lb Pain Level 7 Pain at this time. Pain Level With Medicine 6 on average with meds Pain Level Without Medicine 11/28 without meds BMI (Body Mass Index) 29.5 kg/m2 10/16/2017 2:41pm BP Systolic 126 mmHg BP Diastolic 70 mmHg Heart Rate 74 /min Respiratory Rate 20 /min Height 64 inches 5'4" Weight 172.00 lb Pain Level 9 Pain at this time. Pain Level With Medicine 8 on average with meds Pain Level Without Medicine 10 11/28 without meds BMI (Body Mass Index) 29.5 kg/m2 09/18/2017 3:56pm BP Systolic 120 mmHg BP Diastolic 70 mmHg Heart Rate 74 /min Respiratory Rate 20 /min Height 64 inches 5'4" Weight 174.00 lb Pain Level 9 Pain at this time. Pain Level With Medicine 8 on average with meds Pain Level Without Medicine 10 11/28 without meds BMI (Body Mass Index) 29.9 kg/m2 08/17/2017 2:31pm BP Systolic 122 mmHg BP Diastolic 68 mmHg Heart Rate 70 /min Respiratory Rate 20 /min Height 64 inches 5'4" Weight 172.00 lb Pain Level 9 Pain at this time. Pain Level With Medicine 7 on average with meds Pain Level Without Medicine 10 11/28 without meds BMI (Body Mass Index) 29.5 kg/m2 07/18/2017 2:26pm BP Systolic 118 mmHg BP Diastolic 72 mmHg Heart Rate 74 /min Respiratory Rate 20 /min Height 64 inches 5'4" Weight 172.00 lb Pain Level 9 Pain at this time. Pain Level With Medicine 8 on average with meds Pain Level Without Medicine 10 11/28 without meds BMI (Body Mass Index) 29.5 kg/m2 06/18/2017 10:14am BP Systolic 116 mmHg BP Diastolic 62 mmHg Heart Rate 70 /min Respiratory Rate 20 /min Height 64 inches 5'4" Weight 172.00 lb Pain Level 9 Pain at this time. Pain Level With Medicine 8 on average with meds Pain Level Without Medicine 10 11/28 without meds BMI (Body Mass Index) 29.5 kg/m2 04/16/2017 3:18pm BP Systolic 122 mmHg BP Diastolic 70 mmHg Heart Rate 76 /min Respiratory Rate 20 /min Height 64 inches 5'4" Weight 172.00 lb Pain Level 9 Pain at this time. Pain Level With Medicine 8 on average with meds Pain Level Without Medicine 10 11/28 without meds BMI (Body Mass Index) 29.5 kg/m2 03/15/2017 3:54pm BP Systolic 134 mmHg BP Diastolic 80 mmHg Respiratory Rate 20 /min Height 64 inches 5'4" Weight 172.00 lb Pain Level 9 Pain at this time. Pain Level With Medicine 8 on average with meds Pain Level Without Medicine 10 11/28 without meds BMI (Body Mass Index) 29.5 kg/m2 02/15/2017 3:39pm BP Systolic 128 mmHg BP Diastolic 86 mmHg Heart Rate 80 /min Respiratory Rate 20 /min Height 64 inches 5'4" Weight 172.00 lb pt in a wheelchair Pain Level 9 Pain at this time. Pain Level With Medicine 8 on average with meds Pain Level Without Medicine 10 11/28 without meds BMI (Body Mass Index) 29.5 kg/m2 01/16/2017 3:53pm BP Systolic 126 mmHg BP Diastolic 78 mmHg Heart Rate 74 /min Respiratory Rate 20 /min Height 64 inches 5'4" Weight 170.00 lb Pain Level 7 Pain at this time. Pain Level With Medicine 6 on average with meds Pain Level Without Medicine 10 11/28 without meds Pain Level After Procedure 5 BP Systolic Recheck 120 mmHg Pulse: 76 BP Diastolic Recheck 72 mmHg Pulse: 76 BMI (Body Mass Index) 29.2 kg/m2 12/07/2016 3:20pm BP Systolic 116 mmHg BP Diastolic 74 mmHg Heart Rate 72 /min Respiratory Rate 20 /min Height 64 inches 5'4" Weight 148.00 lb Pain Level 4 Pain at this time. Pain Level With Medicine 3 on average with meds Pain Level Without Medicine 10 11/28 without meds BMI (Body Mass Index) 25.4 kg/m2 10/26/2016 4:22pm BP Systolic 138 mmHg BP Diastolic 86 mmHg Heart Rate 84 /min Respiratory Rate 20 /min Height 64 inches 5'4" Weight 148.00 lb Pain Level 9 Pain at this time. Pain Level With Medicine 8 on average with meds Pain Level Without Medicine 10 11/28 without meds BMI (Body Mass Index) 25.4 kg/m2 09/20/2016 3:30pm BP Systolic 130 mmHg BP Diastolic 78 mmHg Heart Rate 76 /min Respiratory Rate 20 /min Height 64 inches 5'4" Weight 148.00 lb Pain Level 9 Pain at this time. Pain Level With Medicine 8 on average with meds Pain Level Without Medicine 10 11/28 without meds BMI (Body Mass Index) 25.4 kg/m2 08/30/2016 3:57pm BP Systolic 122 mmHg BP Diastolic 74 mmHg Heart Rate 72 /min Respiratory Rate 20 /min Height 64 inches 5'4" Weight 152.00 lb Pain Level 8 Pain at this time. Pain Level With Medicine 7 on average with meds Pain Level Without Medicine 10 11/28 without meds BMI (Body Mass Index) 26.1 kg/m2 08/02/2016 4:21pm BP Systolic 120 mmHg BP Diastolic 70 mmHg Heart Rate 74 /min Respiratory Rate 20 /min Height 64 inches 5'4" Weight 152.00 lb Pain Level 9 Pain at this time. Pain Level With Medicine 7 on average with meds Pain Level Without Medicine 10 11/28 without meds BMI (Body Mass Index) 26.1 kg/m2 07/04/2016 3:41pm BP Systolic 122 mmHg BP Diastolic 70 mmHg Heart Rate 78 /min Respiratory Rate 18 /min Height 64 inches 5'4" Weight 150.00 lb Pain Level 8 Pain at this time. Pain Level With Medicine 6 on average with meds Pain Level Without Medicine 11/28 without meds BMI (Body Mass Index) 25.7 kg/m2 06/26/2016 4:11pm BP Systolic 130 mmHg BP Diastolic 76 mmHg Heart Rate 74 /min Respiratory Rate 20 /min Height 64 inches 5'4" Weight 150.00 lb Pain Level 8 Pain at this time. Pain Level With Medicine 7 on average with meds Pain Level Without Medicine 11/28 without meds BMI (Body Mass Index) 25.7 kg/m2 06/05/2016 4:27pm BP Systolic 128 mmHg BP Diastolic 78 mmHg Heart Rate 80 /min Respiratory Rate 20 /min Height 64 inches 5'4" Weight 151.00 lb Pain Level 8 Pain at this time. Pain Level With Medicine 7 on average with meds Pain Level Without Medicine 10 11/28 without meds BMI (Body Mass Index) 25.9 kg/m2 05/04/2016 3:28pm BP Systolic 120 mmHg BP Diastolic 74 mmHg Heart Rate 76 /min Respiratory Rate 20 /min Height 64 inches 5'4" Weight 151.00 lb Pain Level 9 Pain at this time. Pain Level With Medicine 7 on average with meds Pain Level Without Medicine 10 11/28 without meds BMI (Body Mass Index) 25.9 kg/m2 03/30/2016 3:53pm BP Systolic 116 mmHg BP Diastolic 70 mmHg Heart Rate 72 /min Respiratory Rate 18 /min Height 64 inches 5'4" Pain Level 9 Pain at this time. Pain Level With Medicine 7 on average with meds Pain Level Without Medicine 10 11/28 without meds 03/02/2016 4:06pm BP Systolic 122 mmHg BP Diastolic 70 mmHg Heart Rate 68 /min Respiratory Rate 20 /min Height 64 inches 5'4" Pain Level 8 Pain at this time. Pain Level With Medicine 7 on average with meds Pain Level Without Medicine 11/28 without meds 02/01/2016 3:51pm BP Systolic 122 mmHg BP Diastolic 76 mmHg Heart Rate 74 /min Respiratory Rate 20 /min Height 64 inches 5'4" Weight 174.00 lb Pain Level 5 Pain at this time. Pain Level With Medicine 5 on average with meds Pain Level Without Medicine 11/28 without meds BMI (Body Mass Index) 29.9 kg/m2 12/30/2015 3:37pm BP Systolic 116 mmHg BP Diastolic 72 mmHg Heart Rate 70 /min Respiratory Rate 20 /min Height 64 inches 5'4" Pain Level 6 Pain at this time. Pain Level With Medicine 5 on average with meds Pain Level Without Medicine 11/28 without meds Pain Level After Procedure 4 BP Systolic Recheck 126 mmHg Pulse:72 BP Diastolic Recheck 70 mmHg Pulse:72 12/08/2015 3:40pm BP Systolic 128 mmHg BP Diastolic 82 mmHg Heart Rate 84 /min Respiratory Rate 20 /min Height 64 inches 5'4" Pain Level 8 Pain at this time. Pain Level With Medicine 7 on average with meds Pain Level Without Medicine 11/28 without meds 11/04/2015 4:13pm BP Systolic 122 mmHg BP Diastolic 74 mmHg Heart Rate 72 /min Respiratory Rate 20 /min Height 64 inches 5'4" Pain Level 7 Pain at this time. Pain Level With Medicine 7 on average with meds Pain Level Without Medicine 10 11/28 without meds 10/07/2015 4:19pm BP Systolic 122 mmHg BP Diastolic 74 mmHg Heart Rate 72 /min Respiratory Rate 20 /min Height 64 inches 5'4" Weight 174.00 lb Pain Level 5 Pain at this time. Pain Level With Medicine 4 on average with meds Pain Level Without Medicine 10 11/28 without meds BMI (Body Mass Index) 29.9 kg/m2 09/02/2015 11:59am BP Systolic 128 mmHg BP Diastolic 78 mmHg Heart Rate 76 /min Respiratory Rate 18 /min Height 64 inches 5'4" Weight 178.00 lb Pain Level 9 Pain at this time. Pain Level With Medicine 8 on average with meds Pain Level Without Medicine 10 11/28 without meds BMI (Body Mass Index) 30.6 kg/m2 08/03/2015 3:55pm BP Systolic 122 mmHg BP Diastolic 74 mmHg Heart Rate 78 /min Respiratory Rate 18 /min Height 64 inches 5'4" Weight 172.00 lb Pain Level 8 Pain at this time. Pain Level With Medicine 7 on average with meds Pain Level Without Medicine 10 11/28 without meds BMI (Body Mass Index) 29.5 kg/m2 07/01/2015 4:11pm BP Systolic 136 mmHg BP Diastolic 82 mmHg Heart Rate 84 /min Respiratory Rate 20 /min Height 64 inches 5'4" Weight 170.00 lb Pain Level 8 Pain at this time. Pain Level With Medicine 7 on average with meds Pain Level Without Medicine 10 11/28 without meds Pain Level After Procedure 6 BP Systolic Recheck 128 mmHg Pulse: 76 BP Diastolic Recheck 82 mmHg Pulse: 76 BMI (Body Mass Index) 29.2 kg/m2 06/14/2015 3:52pm BP Systolic 140 mmHg BP Diastolic 84 mmHg Heart Rate 86 /min Respiratory Rate 20 /min Height 64 inches 5'4" Weight 170.00 lb Pain Level 8 Pain at this time. Pain Level With Medicine 7 on average with meds Pain Level Without Medicine 10 11/28 without meds Pain Level After Procedure 6 BP Systolic Recheck 122 mmHg Pulse: 84 BP Diastolic Recheck 78 mmHg Pulse: 84 BMI (Body Mass Index) 29.2 kg/m2 06/03/2015 4:18pm BP Systolic 128 mmHg BP Diastolic 72 mmHg Heart Rate 76 /min Respiratory Rate 18 /min Height 64 inches 5'4" Weight 170.00 lb pt report Pain Level 6 Pain at this time. Pain Level With Medicine 5 on average with meds Pain Level Without Medicine 10 11/28 without meds BMI (Body Mass Index) 29.2 kg/m2 04/28/2015 4:05pm BP Systolic 126 mmHg BP Diastolic 70 mmHg Heart Rate 68 /min Respiratory Rate 20 /min Height 64 inches 5'4" Pain Level 9 Pain at this time. Pain Level With Medicine 9 on average with meds Pain Level Without Medicine 10 11/28 without meds 04/01/2015 4:09pm BP Systolic 104 mmHg BP Diastolic 68 mmHg Heart Rate 70 /min Respiratory Rate 20 /min Height 64 inches 5'4" Pain Level 9 Pain at this time. Pain Level With Medicine 8 on average with meds Pain Level Without Medicine 10 11/28 without meds 03/04/2015 4:10pm BP Systolic 126 mmHg BP Diastolic 72 mmHg Heart Rate 74 /min Respiratory Rate 20 /min Height 64 inches 5'4" Weight 170.00 lb Pain Level 7 Pain at this time. Pain Level With Medicine 7 on average with meds Pain Level Without Medicine 10 11/28 without meds BMI (Body Mass Index) 29.2 kg/m2 02/03/2015 4:01pm BP Systolic 120 mmHg BP Diastolic 78 mmHg Heart Rate 72 /min Respiratory Rate 18 /min Height 64 inches 5'4" Weight 169.00 lb Pain Level 7 7/10, Pain at this time. Pain Level With Medicine 7 710, on average with meds Pain Level Without Medicine 10 11/28 without meds BMI (Body Mass Index) 29.0 kg/m2 01/04/2015 4:07pm BP Systolic 116 mmHg BP Diastolic 72 mmHg Heart Rate 72 /min Respiratory Rate 18 /min Height 64 inches 5'4" Weight 169.00 lb Pain Level 8 810, Pain at this time. Pain Level With Medicine 7 710, on average with meds Pain Level Without Medicine 10 11/28 without meds BMI (Body Mass Index) 29.0 kg/m2 12/03/2014 4:06pm BP Systolic 112 mmHg BP Diastolic 68 mmHg Heart Rate 64 /min Respiratory Rate 20 /min Height 64 inches 5'4" Weight 159.00 lb Pain Level 9 Pain at this time. Pain Level With Medicine 8 on average with meds Pain Level Without Medicine 10 11/28 without meds BMI (Body Mass Index) 27.3 kg/m2 11/05/2014 4:01pm BP Systolic 118 mmHg BP Diastolic 70 mmHg Heart Rate 78 /min Respiratory Rate 18 /min Height 64 inches 5'4" Weight 159.00 lb Pain Level 8 8/10, Pain at this time. Pain Level With Medicine 7 7/10, on average with meds Pain Level Without Medicine 10 11/28 without meds BMI (Body Mass Index) 27.3 kg/m2 10/07/2014 4:16pm BP Systolic 122 mmHg BP Diastolic 76 mmHg Heart Rate 72 /min Respiratory Rate 18 /min Height 64 inches 5'4" Weight 162.00 lb Pain Level 9 9/10, Pain at this time. Pain Level With Medicine 8 8/10, on average with meds Pain Level Without Medicine 10 10/10 without meds BMI (Body Mass Index) 27.8 kg/m2 09/09/2014 4:03pm BP Systolic 122 mmHg BP Diastolic 72 mmHg Heart Rate 74 /min Respiratory Rate 18 /min Height 64 inches 5'4" Weight 162.00 lb Pain Level 7 Pain at this time. Pain Level With Medicine 5 on average with meds Pain Level Without Medicine 10 10/10 without meds BMI (Body Mass Index) 27.8 kg/m2 08/10/2014 4:30pm BP Systolic 122 mmHg BP Diastolic 74 mmHg Heart Rate 78 /min Respiratory Rate 20 /min Height 64 inches 5'4" Weight 159.00 lb Pain Level 8 8/10, Pain at this time. Pain Level With Medicine 7 7/10, on average with meds Pain Level Without Medicine 10 10/10 without meds BMI (Body Mass Index) 27.3 kg/m2 07/10/2014 1:43pm BP Systolic 122 mmHg BP Diastolic 70 mmHg Heart Rate 76 /min Respiratory Rate 18 /min Height 64 inches 5'4" Weight 159.00 lb Pain Level 8 Pain at this time. Pain Level With Medicine 7 on average with meds Pain Level Without Medicine 10 10/10 without meds BMI (Body Mass Index) 27.3 kg/m2 06/11/2014 3:20pm BP Systolic 118 mmHg BP Diastolic 70 mmHg Heart Rate 74 /min Respiratory Rate 18 /min Height 64 inches 5'4" Pain Level 9 9/10, Pain at this time. Pain Level With Medicine 8 8/10, on average with meds Pain Level Without Medicine 10 10/10 without meds Pain Level After Procedure 8 BP Systolic Recheck 110 mmHg Pulse:72 BP Diastolic Recheck 70 mmHg Pulse:72 05/14/2014 3:54pm BP Systolic 120 mmHg BP Diastolic 74 mmHg Heart Rate 70 /min Respiratory Rate 20 /min Height 64 inches 5'4" Weight 167.00 lb Pain Level 8 Pain at this time. Pain Level With Medicine 7 on average with meds Pain Level Without Medicine 10 10/10 without meds BMI (Body Mass Index) 28.7 kg/m2 04/15/2014 2:56pm BP Systolic 114 mmHg BP Diastolic 68 mmHg Heart Rate 64 /min Respiratory Rate 20 /min Height 64 inches 5'4" Weight 180.00 lb Pain Level 8 Pain at this time. Pain Level With Medicine 7 on average with meds Pain Level Without Medicine 10 11/28 without meds BMI (Body Mass Index) 30.9 kg/m2 03/18/2014 2:33pm BP Systolic 118 mmHg BP Diastolic 68 mmHg Heart Rate 64 /min Respiratory Rate 20 /min Height 64 inches 5'4" Weight 168.00 lb Pain Level 9 Pain at this time. Pain Level With Medicine 7 on average with meds Pain Level Without Medicine 10 11/28 without meds Pain Level After Procedure 7 BP Systolic Recheck 112 mmHg Pulse: 68 BP Diastolic Recheck 70 mmHg Pulse: 68 BMI (Body Mass Index) 28.8 kg/m2 01/20/2014 4:28pm BP Systolic 126 mmHg BP Diastolic 78 mmHg Heart Rate 78 /min Respiratory Rate 20 /min Height 64 inches 5'4" Pain Level 8 8/10, Pain at this time. Pain Level With Medicine 8 8/10, on average with meds Pain Level Without Medicine 10 11/28 without meds 12/22/2013 4:25pm BP Systolic 122 mmHg BP Diastolic 74 mmHg Heart Rate 76 /min Respiratory Rate 18 /min Height 64 inches 5'4" Weight 165.00 lb Pain Level 7.5 Pain at this time. Pain Level With Medicine 7.5 on average with meds Pain Level Without Medicine 10 11/28 without meds BMI (Body Mass Index) 28.3 kg/m2 11/19/2013 4:48pm BP Systolic 124 mmHg BP Diastolic 68 mmHg Heart Rate 64 /min Respiratory Rate 18 /min Pain Level 7 7/10, Pain at this time. Pain Level With Medicine 6 6/10, on average with meds Pain Level Without Medicine 10 11/28 without meds 10/22/2013 4:22pm BP Systolic 124 mmHg BP Diastolic 72 mmHg Heart Rate 74 /min Respiratory Rate 18 /min Pain Level 7 Pain at this time. Pain Level With Medicine 6-7 on average with meds Pain Level Without Medicine 10 11/28 without meds 10/06/2013 4:26pm BP Systolic 126 mmHg BP Diastolic 78 mmHg Heart Rate 76 /min Respiratory Rate 18 /min Pain Level 8.5 Pain at this time. Pain Level With Medicine 8 on average with meds Pain Level Without Medicine 10 11/28 without meds 09/24/2013 4:22pm BP Systolic 130 mmHg BP Diastolic 80 mmHg Respiratory Rate 18 /min Height 64 inches 5'4" Weight 163.00 lb pt home scale, she is in a wheelchair Pain Level 8.5 Pain at this time. Pain Level With Medicine 7 on average with meds Pain Level Without Medicine 10 11/28 without meds BMI (Body Mass Index) 28.0 kg/m2 09/11/2013 4:44pm BP Systolic 126 mmHg BP Diastolic 78 mmHg Heart Rate 74 /min Respiratory Rate 20 /min Height 64 inches 5'4" Weight 170.00 lb Pain Level 9.5 9.5/10, Pain at this time. Pain Level With Medicine 9 9/10, on average with meds Pain Level Without Medicine 10 11/28 without meds BMI (Body Mass Index) 29.2 kg/m2 09/03/2013 3:17pm BP Systolic 138 mmHg BP Diastolic 74 mmHg Heart Rate 76 /min Respiratory Rate 18 /min Height 64 inches 5'4" Weight 170.00 lb Pain Level 9 9/10, Pain at this time. Pain Level Without Medicine 10 11/28 without meds BMI (Body Mass Index) 29.2 kg/m2 Results Test Date Facility Test Result H/L Range Note Laboratory test 12/28/2016 [facility] Erythrocyte Sed 11 mm/Hr N 0-40 1, [address] [place] [address] [phone] Urine Culture SEE RESULT BELOW 3 CBC Auto Diff 12/28/2016 [facility] White Blood 10.3 10^3/uL N 3.5-10.[address] Count [place], [place] [id number] [phone] Red Blood Count 4.42 10^6/uL N 4.0-5.4 Hemoglobin 12.8 g/dL N 12.0-16.0 Hematocrit 40 % N 35-47 Mean Corpuscular Volume 89 fL N 80-97 Mean Corpuscular Hemoglobin 29 pg N 27-31 Mean Corpuscular HGB Conc 33 g/dL N 31-36 Red Cell Distribution Width 17 % High 10.5-15 Platelet Count 264 10^3/uL N 150-450 Mean Platelet Volume 8 um3 N 7.4-10.4 Abs Neutrophils 4.7 10^3/uL N 1.5-7.7 Abs Lymphocytes 4.7 10^3/uL N 1.0-4.8 Abs Monocytes 0.5 10^3/uL N 0-0.8 Abs Eosinophils 0.3 10^3/uL N 0-0.6 Abs Basophils 0 10^3/uL N 0-0.2 Abs Nucleated RBC 0.01 10^3/uL Granulocyte % 45.8 % N 38-83 Lymphocyte % 45.2 % N 25-47 Monocyte % 5.3 % N 1-9 Eosinophil % 3.3 % N 0-6 Basophil % 0.4 % N 0-2 Nucleated Red Blood Cells % 0.1 Urinalysis Profile 12/28/2016 [facility] Urine Color Yellow [address] [place] [address] [phone] Urine Appearance Cloudy Urine Specific [place] 1.020 N 1.010-1.030 Urine pH 8.0 N 5-9 Urine Urobilinogen Negative Negative Urine Ketones Negative Negative Urine Protein 1+(30 mg/dL) Abnormal Negative Urine Leukocytes 3+ Abnormal Negative Urine Blood Negative Negative Urine Nitrite Negative Negative Urine Bilirubin Negative Negative Urine Glucose 1+(50 mg/dL) Abnormal Negative Urine White Blood Cell 1+(6-10/hpf) Abnormal Absent Urine Red Blood Cell Absent Absent Urine Bacteria Absent Absent Urine Squamous Epithelial Cell Present Abnormal Absent Urine Hyaline Casts Present Abnormal Absent Laboratory test 12/28/2016 [facility] Creatine 34 U/L N 10-223 4 finding 101 [facility] Kinase(CK) [place] [address] [phone] C Reactive Protein 1.61 mg/L N < 5.00 5 Comp Metabolic Panel 12/28/2016 [facility] Sodium 140 mmol/L N 133-145 [address] [place] [address] [phone] Potassium 3.6 mmol/L N 3.5-5.0 Chloride 97 mmol/L Low 101-111 Co2 Carbon Dioxide 38 mmol/L High 22-32 Anion Gap 5 mmol/L N 2-11 Glucose 175 mg/dL High 70-100 Blood Urea Nitrogen 11 mg/dL N 6-24 Creatinine 0.91 mg/dL N 0.51-0.95 BUN/Creatinine Ratio 12.1 N 8-20 Calcium 9.5 mg/dL N 8.6-10.3 Total Protein 6.4 g/dL N 6.4-8.9 Albumin 3.9 g/dL N 3.2-5.2 Globulin 2.5 g/dL N 2-4 Albumin/Globulin Ratio 1.6 N 1-3 Total Bilirubin 0.60 mg/dL N 0.2-1.0 Alkaline Phosphatase 80 U/L N 34-104 Alt 32 U/L N 7-52 Ast 38 U/L N 13-39 Egfr Non- 61.5 >60 Egfr 79.1 >60 6 Comp Metabolic Panel 10/12/2016 [facility] Sodium 137 mmol/L N 133-145 [address] [place] [address] [phone] Potassium 3.5 mmol/L N 3.5-5.0 Chloride 96 mmol/L Low 101-111 Co2 Carbon Dioxide 31 mmol/L N 22-32 Anion Gap 10 mmol/L N 2-11 Glucose 192 mg/dL High 70-100 Blood Urea Nitrogen 29 mg/dL High 6-24 Creatinine 1.00 mg/dL High 0.51-0.95 BUN/Creatinine Ratio 29.0 High 8-20 Calcium 9.5 mg/dL N 8.6-10.3 Total Protein 6.4 g/dL N 6.4-8.9 Albumin 4.2 g/dL N 3.2-5.2 Globulin 2.2 g/dL N 2-4 Albumin/Globulin Ratio 1.9 N 1-3 Total Bilirubin 0.40 mg/dL N 0.2-1.0 Alkaline Phosphatase 67 U/L N 34-104 Alt 78 U/L High 7-52 Ast 55 U/L High 13-39 Egfr Non- 55.1 N >60 Egfr 70.9 N >60 7 Laboratory test 04/22/2014 [facility] Troponin I 0.01 ng/mL N <0.03 8 finding [address] [place] [address] [phone] Urinalysis Profile 04/22/2014 [facility] Urine Color Yellow N [address] [place] [address] [phone] Urine Appearance Cloudy N Urine Specific [place] 1.020 N 1.010-1.030 Urine pH 5.0 N 5-9 Urine Urobilinogen Negative N Negative Urine Ketones Negative N Negative Urine Protein Negative N Negative Urine Leukocytes Negative N Negative Urine Blood Negative N Negative Urine Nitrite Negative N Negative Urine Bilirubin Negative N Negative Urine Glucose Negative N Negative Laboratory test 04/22/2014 [facility] Ammonia 32 mol/ L N 16-53 finding [address] [place] [address] [phone] CBC Auto Diff 04/22/2014 [facility] White Blood 11.3 High 4.8-10.8 DRIVE Count 10^3/[place] [address] [phone] Red Blood Count 5.16 10^6/uL N 4.0-5.4 Hemoglobin 10.5 g/dL Low 12.0-16.0 Hematocrit 36 % N 35-47 Mean Corpuscular Volume 70 fL Low 80-97 9 Mean Corpuscular Hemoglobin 20 pg Low 27-31 Mean Corpuscular HGB Conc 29 g/dL Low 31-36 Red Cell Distribution Width 18 % High 10.5-15 Platelet Count 275 10^3/uL N 150-450 Mean Platelet Volume 8 um3 N 7.4-10.4 Abs Neutrophils 6.2 10^3/uL N 1.5-7.7 Abs Lymphocytes 3.0 10^3/uL N 1.0-4.8 Abs Monocytes 0.9 10^3/uL High 0-0.8 Abs Eosinophils 0.7 10^3/uL High 0-0.6 Abs Basophils 0.5 10^3/uL High 0-0.2 Abs Nucleated RBC 0 10^3/uL N Granulocyte % 55.2 % N 38-83 Lymphocyte % 26.5 % N 25-47 Monocyte % 8.0 % N 1-9 Eosinophil % 6.0 % N 0-6 Basophil % 4.3 % High 0-2 Nucleated Red Blood Cells % 0 N Inr/Protime 04/22/2014 [facility] Inr 1.00 N 0.78- 1.07 [address] [place] [address] [phone] Laboratory test 04/22/2014 [facility] Activated 27.1 N 26.0-36.3 [address] [place] [address] Thrombo Time [phone] Lactic Acid 1.9 mmol/L N 0.5-2.2 B Type Natriuretic Peptide 43 pg/mL N 11 Comp Metabolic 04/22/2014 [facility] Sodium 131 mmol/ L Low 133-[address] [place] [address] [phone] Potassium 4.1 mmol/L N 3.5-5.0 Chloride 101 mmol/L N 101-111 Co2 Carbon Dioxide 25 mmol/L N 22-32 Anion Gap 5 mmol/L N 2-11 Glucose 264 mg/dL High 70-100 Blood Urea Nitrogen 13 mg/dL N 6-24 Creatinine 0.75 mg/dL N 0.51-0.95 BUN/Creatinine Ratio 17.3 N 8-20 Calcium 9.5 mg/dL N 8.6-10.3 Total Protein 6.9 g/dL N 6.4-8.9 Albumin 4.2 g/dL N 3.2-5.2 Globulin 2.7 g/dL N 2-4 Albumin/Globulin Ratio 1.6 N 1-3 Total Bilirubin 0.30 mg/dL N 0.2-1.0 Alkaline Phosphatase 73 U/L N 34-104 Alt 20 U/L N 7-52 Ast 18 U/L N 13-39 Egfr Non- 77.6 N >60 Egfr 99.7 N >60 12 Laboratory test 04/22/2014 [facility] Magnesium 1.6 mg /dL Low 1.9-2.[address] [place] [address] [phone] Lipase 37 U/L N 11.0-82.0 Creatine Kinase 32 U/L N 10-223 CKMB 04/22/2014 [facility] CKMB ng/mL 2.1 ng/mL N 0.6-6.[address] [place] [address] [phone] Laboratory test 04/22/2014 [facility] Troponin I 0.01 ng/mL N <0.03 [address] [place] [address] [phone] Acetaminophen < 15 g/mL N 14 Alcohol < 10 mg/dL N <10 C Reactive Protein 1.54 mg/L N < 5.00 15 Laboratory test 02/17/2014 [facility] Hemoglobin A1c 8.3 % High Less than [address] 6[address]0 [place] [address] [phone] Comp Metabolic 02/17/2014 [facility] Sodium 133 133 -[address] mmol/[place] [address] [phone] Potassium 3.9 mmol/L 3.5-5.0 Chloride 104 mmol/L 101-111 Co2 Carbon Dioxide 21 mmol/L Low 22-32 Anion Gap 8 mmol/L 2-11 Glucose 137 mg/dL High 70-100 Blood Urea Nitrogen 17 mg/dL 6-24 Creatinine 0.62 mg/dL 0.51-0.95 BUN/Creatinine Ratio 27.4 High 8-20 Calcium 8.7 mg/dL 8.6-10.3 Total Protein 6.7 g/dL 6.4-8.9 Albumin 3.9 g/dL 3.2-5.2 Globulin 2.8 g/dL 2-4 Albumin/Globulin Ratio 1.4 1-3 Total Bilirubin 0.20 mg/dL 0.2-1.0 Alkaline Phosphatase 71 U/L 34-104 Alt 10 U/L 7-52 Ast 11 U/L Low 13-39 Egfr Non- 96.6 >60 Egfr 124.2 >60 17 Lipid Profile 02/17/2014 [facility] Triglycerides 309 mg/dL 18 (Trig/Chol/HDL) [address] [place] [address] [phone] Cholesterol 179 mg/dL 19 HDL Cholesterol 41.6 mg/dL 20 LDL Cholesterol 76 mg/dL 21 Laboratory test 02/17/2014 [facility] Vitamin B12 239 pg/mL 180-914 [address] [place] [address] [phone] TSH (Thyroid Stimulating Horm) 1.86 IU/mL 0.34-5.60 23 Vitamin D, 25 02/17/2014 [facility] 25-Hydroxy Vitamin <4.0 ng/mL Hydroxy [address] [place] [address] [phone] 25-Hydroxy Vitamin D3 97 ng/mL 25-Hydroxy Vitamin D Total 97 ng/mL Abnormal 24 1 [id number] 2 [id number] 3 SEE RESULT BELOW Name: JESSICA BROWN : [address]: Jayson Briones MD Acct: [id number] Unit: [id number] AGE: 66 Location: [facility] Re12/28/16 SEX: F Status: REG REF SPEC: [id number] BETHANY: 12/28/16-1210 [facility] DR: Jayson Briones MD REQ: [id number] RECD: 12/28/163 STATUS: ANIKA GREGORIO DR: Elli Duncan DO _ SOURCE: URINE SPDESC: ORDERED: Urine Culture Procedure Result Reported Site Urine Culture Final 12/30/16- 1241 ML No growth of clinically significant organisms * ML - MAIN LAB (PSC1) . END OF REPORT * ML=Testing performed at Main Lab DEPARTMENT OF PATHOLOGY, [address] [place] [address] Sebas Lund M.D. Director [facility] # [id number] 4 [id number] 5 Acute inflammation: >10.00 6 Because ethnic data is not always readily available, this report includes an eGFR for both -Americans and non- Americans. The National Kidney Disease Education Program (NKDEP) does not endorse the use of the MDRD equation for patients that are not between the ages of 18 and 70, are , have extremes of body size, muscle mass, or nutritional status, or are non- or non-. According to the National Kidney Foundation, irrespective of diagnosis, the stage of the disease is based on the level of kidney function: Stage Description GFR(mL/min/1.73 m(2)) 1 Kidney damage with normal or decreased GFR 90 2 Kidney damage with mild decrease in GFR 60-89 3 Moderate decrease in GFR 30-59 4 Severe decrease in GFR 15-29 5 Kidney failure <15 (or dialysis) 7 Because ethnic data is not always readily available, this report includes an eGFR for both -Americans and non- Americans. The National Kidney Disease Education Program (NKDEP) does not endorse the use of the MDRD equation for patients that are not between the ages of 18 and 70, are , have extremes of body size, muscle mass, or nutritional status, or are non- or non-. According to the National Kidney Foundation, irrespective of diagnosis, the stage of the disease is based on the level of kidney function: Stage Description GFR(mL/min/1.73 m(2)) 1 Kidney damage with normal or decreased GFR 90 2 Kidney damage with mild decrease in GFR 60-89 3 Moderate decrease in GFR 30-59 4 Severe decrease in GFR 15-29 5 Kidney failure <15 (or dialysis) 8 Reference Range and Interpretation: TnI (ng/mL) Interpretation Less Than 0.03 ng/mL Not supportive of diagnosis of SD 0.03 - 0.50 ng/mL Indeterminate: suggest serial studies if clinically indicated. Greater than 0.5 ng/mL Consistent with diagnosis of SD 9 Consistent with previous results on 02/17/14. 10 Effective April 17, 2014 at 12:00pm there is an updated reference range. 11 >100 to <200 pg/mL: likely compensated congestive heart failure (CHF) 200 to 400 pg/mL: likely moderate CHF >400 pg/mL: likely moderate to severe CHF [place] [facility] 12 Because ethnic data is not always readily available, this report includes an eGFR for both -Americans and non- Americans. The National Kidney Disease Education Program (NKDEP) does not endorse the use of the MDRD equation for patients that are not between the ages of 18 and 70, are , have extremes of body size, muscle mass, or nutritional status, or are non- or non-. According to the National Kidney Foundation, irrespective of diagnosis, the stage of the disease is based on the level of kidney function: Stage Description GFR(mL/min/1.73 m(2)) 1 Kidney damage with normal or decreased GFR 90 2 Kidney damage with mild decrease in GFR 60-89 3 Moderate decrease in GFR 30-59 4 Severe decrease in GFR 15-29 5 Kidney failure <15 (or dialysis) 13 Reference Range and Interpretation: TnI (ng/mL) Interpretation Less Than 0.03 ng/mL Not supportive of diagnosis of SD 0.03 - 0.50 ng/mL Indeterminate: suggest serial studies if clinically indicated. Greater than 0.5 ng/mL Consistent with diagnosis of SD 14 Therapeutic concentration: <50 ug/mL Toxic concentration: >120 ug/mL 15 Acute inflammation: >10.00 16 Therapeutic target for the treatment of diabetes Mellitus patients is <7% HBA1C, and in selective patients <6.0%.Please refer to [place] [employer] Diabetic care guidelines for further information. 17 Because ethnic data is not always readily available, this report includes an eGFR for both -Americans and non- Americans. The National Kidney Disease Education Program (NKDEP) does not endorse the use of the MDRD equation for patients that are not between the ages of 18 and 70, are , have extremes of body size, muscle mass, or nutritional status, or are non- or non-. According to the National Kidney Foundation, irrespective of diagnosis, the stage of the disease is based on the level of kidney function: Stage Description GFR(mL/min/1.73 m(2)) 1 Kidney damage with normal or decreased GFR 90 2 Kidney damage with mild decrease in GFR 60-89 3 Moderate decrease in GFR 30-59 4 Severe decrease in GFR 15-29 5 Kidney failure <15 (or dialysis) 18 Desirable <150 Borderline high 150-199 High 200-499 Very High >500 19 Desirable <200 Borderline high 200-239 High >239 20 Low <40 Desirable: 40-60 High: >60 21 Desirable <100 Near Optimal 100-129 Borderline high 130-159 High 160-189 Very High >189 22 Normal Range 180 to 914 Indeterminate Range 145 to 180 Deficient Range <145 23 FASTING 24 Interpretation: >80 ng/mL (toxicity possible) REFERENCE VALUE 25-HYDROXY D TOTAL (D2+D3) Optimum levels in the healthy population are 20-50, patients with bone disease may benefit from higher levels within this range. Test Performed by: [facility] [address] [address] [employer]: Fransisco Best M.D. Procedures Date Code Description Status 01/18/2018 29457 Therapeutic, Prophylactic Or Diagnostic Injection Subq/Im Completed 11/15/2017 97875 Therapeutic, Prophylactic Or Diagnostic Injection Subq/Im Completed 10/16/2017 35119 Therapeutic, Prophylactic Or Diagnostic Injection Subq/Im Completed 09/18/2017 41454 Therapeutic, Prophylactic Or Diagnostic Injection Subq/Im Completed 08/17/2017 73305 Therapeutic, Prophylactic Or Diagnostic Injection Subq/Im Completed 07/18/2017 25959 Omt 3-4 Body Regions Completed 07/18/2017 89917 Therapeutic, Prophylactic Or Diagnostic Injection Subq/Im Completed 06/18/2017 35901 Omt 3-4 Body Regions Completed 06/18/2017 95257 Therapeutic, Prophylactic Or Diagnostic Injection Subq/Im Completed 04/16/2017 80635 Therapeutic, Prophylactic Or Diagnostic Injection Subq/Im Completed 04/16/2017 35812 Omt 3-4 Body Regions Completed 03/15/2017 14943 Omt 3-4 Body Regions Completed 03/15/2017 75356 Therapeutic, Prophylactic Or Diagnostic Injection Subq/Im Completed 02/15/2017 38091 Omt 3-4 Body Regions Completed 02/15/2017 38879 Therapeutic, Prophylactic Or Diagnostic Injection Subq/Im Completed 01/16/2017 90176 Therapeutic, Prophylactic Or Diagnostic Injection Subq/Im Completed 12/07/2016 50932 Omt 3-4 Body Regions Completed 12/07/2016 27662 Therapeutic, Prophylactic Or Diagnostic Injection Subq/Im Completed 10/26/2016 47897 Omt 1-2 Body Regions Completed 10/26/2016 51993 Therapeutic, Prophylactic Or Diagnostic Injection Subq/Im Completed 09/20/2016 51815 Therapeutic, Prophylactic Or Diagnostic Injection Subq/Im Completed 09/20/2016 07564 Omt 1-2 Body Regions Completed 08/30/2016 24424 Omt 3-4 Body Regions Completed 08/30/2016 70303 Therapeutic, Prophylactic Or Diagnostic Injection Subq/Im Completed 08/02/2016 92270 Omt 3-4 Body Regions Completed 07/04/2016 81789 Omt 1-2 Body Regions Completed 07/04/2016 20429 Therapeutic, Prophylactic Or Diagnostic Injection Subq/Im Completed 06/26/2016 03766 Omt 3-4 Body Regions Completed 06/05/2016 49386 Omt 3-4 Body Regions Completed 06/05/2016 13330 Therapeutic, Prophylactic Or Diagnostic Injection Subq/Im Completed 05/04/2016 31651 Therapeutic, Prophylactic Or Diagnostic Injection Subq/Im Completed 03/30/2016 65249 Therapeutic, Prophylactic Or Diagnostic Injection Subq/Im Completed 03/30/2016 80283 Omt 3-4 Body Regions Completed 03/02/2016 66896 Therapeutic, Prophylactic Or Diagnostic Injection Subq/Im Completed 02/01/2016 66040 Therapeutic, Prophylactic Or Diagnostic Injection Subq/Im Completed 12/30/2015 83354 Omt 1-2 Body Regions Completed 12/30/2015 21726 Therapeutic, Prophylactic Or Diagnostic Injection Subq/Im Completed 12/30/201525731 Arthrocentesis Aspiration Inj, Small Joint/Bursa W US Completed Guidance 12/08/2015 34463 Omt 3-4 Body Regions Completed 12/08/2015 87236 Therapeutic, Prophylactic Or Diagnostic Injection Subq/Im Completed 11/04/2015 71487 Therapeutic, Prophylactic Or Diagnostic Injection Subq/Im Completed 11/04/2015 62140 Omt 3-4 Body Regions Completed 10/07/2015 28478 Omt 3-4 Body Regions Completed 10/07/2015 36509 Therapeutic, Prophylactic Or Diagnostic Injection Subq/Im Completed 09/02/2015 90440 Omt 3-4 Body Regions Completed 09/02/2015 27176 Therapeutic, Prophylactic Or Diagnostic Injection Subq/Im Completed 08/03/2015 97162 Omt 3-4 Body Regions Completed 07/01/2015 09081 Therapeutic, Prophylactic Or Diagnostic Injection Subq/Im Completed 07/01/201587618 Arthrocentesis Aspiration Inj, Small Joint/Bursa W US Completed Guidance 06/14/201561612 Arthrocentesis Aspiration Inj, Small Joint/Bursa W US Completed Guidance 06/14/2015 58510 Omt 1-2 Body Regions Completed 06/03/2015 21999 Omt 3-4 Body Regions Completed 06/03/2015 10988 Therapeutic, Prophylactic Or Diagnostic Injection Subq/Im Completed 04/28/2015 68855 Omt 3-4 Body Regions Completed 04/28/2015 11837 Therapeutic, Prophylactic Or Diagnostic Injection Subq/Im Completed 04/01/2015 03978 Omt 3-4 Body Regions Completed 04/01/2015 60220 Therapeutic, Prophylactic Or Diagnostic Injection Subq/Im Completed 03/04/2015 14585 Omt 1-2 Body Regions Completed 02/03/2015 74237 Therapeutic, Prophylactic Or Diagnostic Injection Subq/Im Completed 01/04/2015 23834 Test Autonomic Nervous System, Sudomotor Completed 01/04/2015 85757 Therapeutic, Prophylactic Or Diagnostic Injection Subq/Im Completed 01/04/2015 40675 Omt 1-2 Body Regions Completed 12/03/2014 48917 Omt 1-2 Body Regions Completed 12/03/2014 26222 Therapeutic, Prophylactic Or Diagnostic Injection Subq/Im Completed 11/05/2014 05629 Omt 1-2 Body Regions Completed 11/05/2014 51001 Therapeutic, Prophylactic Or Diagnostic Injection Subq/Im Completed 09/09/2014 01864 Therapeutic, Prophylactic Or Diagnostic Injection Subq/Im Completed 07/10/2014 55354 Therapeutic, Prophylactic Or Diagnostic Injection Subq/Im Completed 07/10/2014 61283 Test Autonomic Nervous System, Sudomotor Completed 06/11/201438752 Inject Tendon/Ligament Completed 06/11/201419279 Inject Tendon/Ligament Completed 06/11/2014 29430 Inject Tendon/Ligament Completed 06/11/2014 06984 Injection, Single Or Mutiple Trigger Points One Or Two Completed Muscles 06/11/2014 31288 Therapeutic, Prophylactic Or Diagnostic Injection Subq/Im Completed 03/18/201414581 Injection Single Or Multiple Trigger Points Three Or More Completed Muscles 03/18/201483972 Inject Tendon/Ligament Completed 03/18/201412650 Inject Tendon/Ligament Completed 03/18/201460274 Inject Tendon/Ligament Completed 02/02/2014 43224 Injection, Single Or Mutiple Trigger Points One Or Two Completed Muscles 02/02/2014 07909 Inject Tendon/Ligament Completed 02/02/2014 23027 Inject Tendon/Ligament Completed 02/02/201432863 Inject Tendon/Ligament Completed Encounters Type Date Location Provider Dx Diagnosis Office Visit 01/18/2018 Main Office as Of Kaiden Duncan DO, 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 M54.5 Low back pain M54.2 Cervicalgia R53.83 Other fatigue Z71.89 Other specified counseling 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 Office Visit 11/15/2017 3:15p Main Office as Kaiden Duncan 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, 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 M54.6 Pain in thoracic spine M54.5 Low back pain M54.2 Cervicalgia Z79.891 longterm (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 analgesic R53.83 Other fatigue Office Visit 10/16/2017 2:45p Main Office as DuncanKaiden zavaleta, 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, 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 M54.5 Low back pain M54.6 Pain in thoracic spine R53.83 Other fatigue Z79.891 longterm (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 analgesic Office Visit 09/18/2017 4:15p Main Office as DuncanKaiden zavaleta, 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, 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 M54.2 Cervicalgia M54.5 Low back pain Z71.89 Other specified counseling R53.83 Other fatigue 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 Office Visit 08/17/2017 2:15p Main Office as DuncanKaiden zavaleta, G63 Polyneuropathy in Of 03/22/13 DO, MPH diseases classified elsewhere M54.2 Cervicalgia M54.6 Pain in thoracic spine M25.512 Pain in left shoulder M25.511 Pain in right shoulder R53.83 Other fatigue 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 Office Visit 07/18/2017 2:15p Main Office as DuncanNila zavaletaph, G63 Polyneuropathy in Of 03/22/13 DO, MPH diseases classified elsewhere M54.2 Cervicalgia M99.01 Segmental and somatic dysfunction of cervical region M54.6 Pain in thoracic spine M99.02 Segmental and somatic dysfunction of thoracic region M25.512 Pain in left shoulder M25.511 Pain in right shoulder M99.07 Segmental and somatic dysfunction of upper extremity R53.83 Other fatigue Z79.891 longterm (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 analgesic Office Visit 06/18/2017 10:00a Main Office as DuncanNila zavaletaph, G63 Polyneuropathy in Of 03/22/13 DO, MPH diseases classified elsewhere M54.2 Cervicalgia M99.01 Segmental and somatic dysfunction of cervical region M54.6 Pain in thoracic spine M99.02 Segmental and somatic dysfunction of thoracic region M25.512 Pain in left shoulder M99.07 Segmental and somatic dysfunction of upper extremity R53.83 Other fatigue 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 Office Visit 04/16/2017 3:15p Main Office as Kaiden Duncan, G89.29 Other chronic Of 03/22/13 DO, MPH pain G63 Polyneuropathy in diseases classified elsewhere G60.9 Hereditary and idiopathic neuropathy, unspecified M54.2 Cervicalgia M99.01 Segmental and somatic dysfunction of cervical region M54.6 Pain in thoracic spine M99.02 Segmental and somatic dysfunction of thoracic region M25.512 Pain in left shoulder M99.07 Segmental and somatic dysfunction of upper extremity M54.5 Low back pain R53.83 Other fatigue 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 Z13.89 Encounter for screening for other disorder Office Visit 03/15/2017 3:45p Main Office as Kaiden Duncan, G89.29 Other chronic Of 03/22/13 DO, MPH pain G60.9 Hereditary and idiopathic neuropathy, unspecified G63 Polyneuropathy in diseases classified elsewhere M54.2 Cervicalgia M99.01 Segmental and somatic dysfunction of cervical region M54.6 Pain in thoracic spine M99.02 Segmental and somatic dysfunction of thoracic region M54.5 Low back pain M99.03 Segmental and somatic dysfunction of lumbar region R53.83 Other fatigue Z79.891 longterm (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 analgesic Office Visit 02/15/2017 3:45p Main Office as Kaiden Duncan, G89.29 Other chronic Of 03/22/13 DO, MPH pain G63 Polyneuropathy in diseases classified elsewhere G60.9 Hereditary and idiopathic neuropathy, unspecified M54.2 Cervicalgia M99.01 Segmental and somatic dysfunction of cervical region M54.6 Pain in thoracic spine M99.02 Segmental and somatic dysfunction of thoracic region M79.601 Pain in right arm R53.83 Other fatigue M79.602 Pain in left arm Z79.891 longterm (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 analgesic M25.531 Pain in right wrist M25.532 Pain in left wrist M99.07 Segmental and somatic dysfunction of upper extremity R26.0 Ataxic gait M79.9 Soft tissue disorder, unspecified Office Visit 01/16/2017 3:45p Main Office as Kaiden Duncan, G89.29 Other chronic Of 03/22/13 DO, MPH pain G63 Polyneuropathy in diseases classified elsewhere G60.9 Hereditary and idiopathic neuropathy, unspecified M54.2 Cervicalgia M54.6 Pain in thoracic spine M79.1 Myalgia R53.83 Other fatigue R26.0 Ataxic gait M79.9 Soft tissue disorder, unspecified 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 Office Visit 12/07/2016 3:45p Main Office as Kaiden Duncan, G89.29 Other chronic Of 03/22/13 DO, MPH pain G60.9 Hereditary and idiopathic neuropathy, unspecified G63 Polyneuropathy in diseases classified elsewhere M54.2 Cervicalgia M99.01 Segmental and somatic dysfunction of cervical region M79.1 Myalgia R53.83 Other fatigue M54.6 Pain in thoracic spine M99.02 Segmental and somatic dysfunction of thoracic region M25.511 Pain in right shoulder M99.07 Segmental and somatic dysfunction of upper extremity 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 Office Visit 10/26/2016 4:15p Main Office as Kaiden Duncan, G89.29 Other chronic Of 03/22/13 DO, MPH pain G63 Polyneuropathy in diseases classified elsewhere G60.9 Hereditary and idiopathic neuropathy, unspecified M54.2 Cervicalgia M99.01 Segmental and somatic dysfunction of cervical region M79.1 Myalgia R53.83 Other fatigue Z79.891 longterm (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 analgesic Office Visit 09/20/2016 3:15p Main Office as Kaiden Duncan, G89.29 Other chronic Of 03/22/13 DO, MPH pain G63 Polyneuropathy in diseases classified elsewhere G60.9 Hereditary and idiopathic neuropathy, unspecified M54.2 Cervicalgia M99.01 Segmental and somatic dysfunction of cervical region R53.83 Other fatigue M79.1 Myalgia 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 Office Visit 08/30/2016 4:15p Main Office as Kaiden Duncan, G89.29 Other chronic Of 03/22/13 DO, MPH pain G63 Polyneuropathy in diseases classified elsewhere G60.9 Hereditary and idiopathic neuropathy, unspecified M54.2 Cervicalgia M99.01 Segmental and somatic dysfunction of cervical region M54.6 Pain in thoracic spine M99.02 Segmental and somatic dysfunction of thoracic region R53.83 Other fatigue M25.511 Pain in right shoulder M99.07 Segmental and somatic dysfunction of upper extremity M79.1 Myalgia Z79.891 longterm (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 analgesic M25.531 Pain in right wrist M25.532 Pain in left wrist Office Visit 08/02/2016 4:00p Main Office as Kaiden Duncan, G89.29 Other chronic Of 03/22/13 DO, MPH pain G63 Polyneuropathy in diseases classified elsewhere G60.9 Hereditary and idiopathic neuropathy, unspecified M54.2 Cervicalgia M99.01 Segmental and somatic dysfunction of cervical region M54.6 Pain in thoracic spine M99.02 Segmental and somatic dysfunction of thoracic region M25.511 Pain in right shoulder M99.07 Segmental and somatic dysfunction of upper extremity M79.1 Myalgia 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 Office Visit 07/04/2016 3:30p Main Office as Kaiden Duncan, G89.29 Other chronic Of 03/22/13 DO, MPH pain G63 Polyneuropathy in diseases classified elsewhere G60.9 Hereditary and idiopathic neuropathy, unspecified M54.2 Cervicalgia M99.01 Segmental and somatic dysfunction of cervical region M54.6 Pain in thoracic spine M99.02 Segmental and somatic dysfunction of thoracic region M25.511 Pain in right shoulder M99.07 Segmental and somatic dysfunction of upper extremity M79.1 Myalgia R53.83 Other fatigue 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 Office Visit 06/26/2016 4:00p Main Office as Kaiden Duncan, G89.29 Other chronic Of 03/22/13 DO, MPH pain G60.9 Hereditary and idiopathic neuropathy, unspecified G63 Polyneuropathy in diseases classified elsewhere M54.2 Cervicalgia M99.01 Segmental and somatic dysfunction of cervical region M54.6 Pain in thoracic spine M99.02 Segmental and somatic dysfunction of thoracic region M25.511 Pain in right shoulder M99.07 Segmental and somatic dysfunction of upper extremity M79.1 Myalgia Office Visit 06/05/2016 4:30p Main Office as Kaiden Duncan, G89.29 Other chronic Of 03/22/13 DO, MPH pain G60.9 Hereditary and idiopathic neuropathy, unspecified G63 Polyneuropathy in diseases classified elsewhere M54.2 Cervicalgia M99.01 Segmental and somatic dysfunction of cervical region M54.6 Pain in thoracic spine M99.02 Segmental and somatic dysfunction of thoracic region M25.511 Pain in right shoulder M99.07 Segmental and somatic dysfunction of upper extremity M79.1 Myalgia R53.83 Other fatigue 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 R26.0 Ataxic gait Office Visit 05/04/2016 3:00p Main Office as Kaiden Duncan G89.29 Other chronic Of 03/22/13 DO, MPH pain G60.9 Hereditary and idiopathic neuropathy, unspecified G63 Polyneuropathy in diseases classified elsewhere M54.2 Cervicalgia M99.01 Segmental and somatic dysfunction of cervical region M54.6 Pain in thoracic spine M99.02 Segmental and somatic dysfunction of thoracic region M25.511 Pain in right shoulder M99.07 Segmental and somatic dysfunction of upper extremity M79.1 Myalgia R53.83 Other fatigue Z79.891 longterm (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 analgesic R26.0 Ataxic gait K21.9 Gastro-esophageal reflux disease without esophagitis Office Visit 03/30/2016 3:30p Main Office as Kaiden Duncan, G89.29 Other chronic Of 03/22/13 DO, MPH pain G63 Polyneuropathy in diseases classified elsewhere G60.9 Hereditary and idiopathic neuropathy, unspecified M54.2 Cervicalgia M99.01 Segmental and somatic dysfunction of cervical region M54.6 Pain in thoracic spine M99.02 Segmental and somatic dysfunction of thoracic region M25.511 Pain in right shoulder M79.1 Myalgia M99.07 Segmental and somatic dysfunction of upper extremity Z79.891 longterm (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 analgesic E11.43 Type 2 diabetes w diabetic autonomic (poly)neuropathy K21.9 Gastro-esophageal reflux disease without esophagitis R26.0 Ataxic gait R53.83 Other fatigue Office Visit 03/02/2016 3:45p Main Office as Kaiden Duncan G89.29 Other chronic Of 03/22/13 DO, MPH pain G63 Polyneuropathy in diseases classified elsewhere G60.9 Hereditary and idiopathic neuropathy, unspecified M54.2 Cervicalgia M54.6 Pain in thoracic spine M25.511 Pain in right shoulder R53.83 Other fatigue Office Visit 02/01/2016 3:30p Main Office as Kaiden Duncan, G89.29 Other chronic Of 03/22/13 DO, MPH pain G63 Polyneuropathy in diseases classified elsewhere G60.9 Hereditary and idiopathic neuropathy, unspecified M54.2 Cervicalgia M54.6 Pain in thoracic spine R53.83 Other fatigue 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 Office Visit 12/30/2015 3:30p Main Office as Kaiden Duncan G89.29 Other chronic Of 03/22/13 DO, MPH pain G63 Polyneuropathy in diseases classified elsewhere G60.9 Hereditary and idiopathic neuropathy, unspecified M54.2 Cervicalgia M99.01 Segmental and somatic dysfunction of cervical region M54.6 Pain in thoracic spine M99.02 Segmental and somatic dysfunction of thoracic region M25.511 Pain in right shoulder M99.07 Segmental and somatic dysfunction of upper extremity R53.83 Other fatigue M79.641 Pain in right hand Office Visit 12/08/2015 3:15p Main Office as Kaiden Duncan, G89.29 Other chronic Of 03/22/13 DO, MPH pain G63 Polyneuropathy in diseases classified elsewhere G60.9 Hereditary and idiopathic neuropathy, unspecified M54.2 Cervicalgia M99.01 Segmental and somatic dysfunction of cervical region M54.6 Pain in thoracic spine M99.02 Segmental and somatic dysfunction of thoracic region M25.511 Pain in right shoulder M99.07 Segmental and somatic dysfunction of upper extremity R53.83 Other fatigue 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 Office Visit 11/04/2015 3:45p Main Office as Kaiden Duncan G89.29 Other chronic Of 03/22/13 DO, MPH pain G63 Polyneuropathy in diseases classified elsewhere G60.9 Hereditary and idiopathic neuropathy, unspecified M54.2 Cervicalgia M99.01 Segmental and somatic dysfunction of cervical region M54.6 Pain in thoracic spine M99.02 Segmental and somatic dysfunction of thoracic region M25.511 Pain in right shoulder M99.07 Segmental and somatic dysfunction of upper extremity R53.83 Other fatigue 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 Office Visit 10/07/2015 4:00p Main Office as Kaiden Duncan 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 Of 03/22/13 DO, MPH (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 analgesic G89.29 Other chronic pain G63 Polyneuropathy in diseases classified elsewhere G60.9 Hereditary and idiopathic neuropathy, unspecified M53.82 Other specified dorsopathies, cervical region M99.01 Segmental and somatic dysfunction of cervical region M54.6 Pain in thoracic spine M99.02 Segmental and somatic dysfunction of thoracic region M25.511 Pain in right shoulder M99.07 Segmental and somatic dysfunction of upper extremity R53.83 Other fatigue Z79.891 longterm (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 analgesic Office Visit 09/02/2015 11:45a Main Office as Kaiden Duncan G89.29 Other chronic Of 03/22/13 DO, MPH pain G63 Polyneuropathy in diseases classified elsewhere G60.9 Hereditary and idiopathic neuropathy, unspecified M53.82 Other specified dorsopathies, cervical region M99.01 Segmental and somatic dysfunction of cervical region M54.6 Pain in thoracic spine M99.02 Segmental and somatic dysfunction of thoracic region M25.511 Pain in right shoulder M99.07 Segmental and somatic dysfunction of upper extremity R53.83 Other fatigue 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 Office Visit 08/03/2015 3:45p Main Office as Kaiden Duncan G89.29 Other chronic Of 03/22/13 DO, MPH pain G63 Polyneuropathy in diseases classified elsewhere G60.9 Hereditary and idiopathic neuropathy, unspecified M53.82 Other specified dorsopathies, cervical region M99.01 Segmental and somatic dysfunction of cervical region M54.6 Pain in thoracic spine M99.02 Segmental and somatic dysfunction of thoracic region M25.511 Pain in right shoulder M99.07 Segmental and somatic dysfunction of upper extremity R53.83 Other fatigue 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 Office Visit 07/01/2015 4:00p Main Office as Kaiden Duncan 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 Of 03/22/13 DO, MPH (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 analgesic G89.29 Other chronic pain G63 Polyneuropathy in diseases classified elsewhere G60.9 Hereditary and idiopathic neuropathy, unspecified M53.82 Other specified dorsopathies, cervical region M79.642 Pain in left hand R53.83 Other fatigue Office Visit 06/14/2015 4:00p Main Office as Kaiden Duncan, G89.29 Other chronic Of 03/22/13 DO, MPH pain G63 Polyneuropathy in diseases classified elsewhere G60.9 Hereditary and idiopathic neuropathy, unspecified M53.82 Other specified dorsopathies, cervical region M99.01 Segmental and somatic dysfunction of cervical region M79.642 Pain in left hand Office Visit 06/03/2015 4:00p Main Office as Kaiden Duncan, 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 Of 03/22/13 DO, MPH (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 analgesic G89.29 Other chronic pain G63 Polyneuropathy in diseases classified elsewhere G60.9 Hereditary and idiopathic neuropathy, unspecified M53.82 Other specified dorsopathies, cervical region Z79.891 longterm (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 analgesic R53.83 Other fatigue M99.00 Segmental and somatic dysfunction of head region M99.01 Segmental and somatic dysfunction of cervical region M99.02 Segmental and somatic dysfunction of thoracic region M99.07 Segmental and somatic dysfunction of upper extremity M54.6 Pain in thoracic spine M25.511 Pain in right shoulder M25.512 Pain in left shoulder Office Visit 04/28/2015 4:00p Main Office as Kaiden Duncan, G89.29 Other chronic Of 03/22/13 DO, MPH pain G63 Polyneuropathy in diseases classified elsewhere G60.9 Hereditary and idiopathic neuropathy, unspecified M53.82 Other specified dorsopathies, cervical region M99.01 Segmental and somatic dysfunction of cervical region M79.601 Pain in right arm M79.602 Pain in left arm M99.07 Segmental and somatic dysfunction of upper extremity M54.6 Pain in thoracic spine M99.02 Segmental and somatic dysfunction of thoracic region R53.83 Other fatigue Office Visit 04/01/2015 4:15p Main Office as Kaiden Duncan, 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 Of 03/22/13 DO, MPH (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 analgesic G89.29 Other chronic pain G63 Polyneuropathy in diseases classified elsewhere G60.9 Hereditary and idiopathic neuropathy, unspecified M53.82 Other specified dorsopathies, cervical region M99.01 Segmental and somatic dysfunction of cervical region M79.601 Pain in right arm M79.602 Pain in left arm M99.07 Segmental and somatic dysfunction of upper extremity M25.531 Pain in right wrist M25.532 Pain in left wrist R53.83 Other fatigue M54.6 Pain in thoracic spine M99.02 Segmental and somatic dysfunction of thoracic region Z79.891 longterm (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 analgesic Office Visit 03/04/2015 4:00p Main Office as Kaiden Duncan G89.4 Chronic pain Of 03/22/13 DO, MPH syndrome G63 Polyneuropathy in diseases classified elsewhere G60.9 Hereditary and idiopathic neuropathy, unspecified M53.82 Other specified dorsopathies, cervical region M99.01 Segmental and somatic dysfunction of cervical region Office Visit 02/03/2015 4:00p Main Office as Of Kaiden Duncan, R53.83 Other fatigue 03/22/13 DO, MPH G89.4 Chronic pain syndrome G63 Polyneuropathy in diseases classified elsewhere M53.82 Other specified dorsopathies, cervical region G60.9 Hereditary and idiopathic neuropathy, unspecified R53.83 Other fatigue Office Visit 01/04/2015 4:00p Main Office as Kaiden Duncan G89.4 Chronic pain Of 03/22/13 DO, MPH syndrome G63 Polyneuropathy in diseases classified elsewhere M53.82 Other specified dorsopathies, cervical region M99.01 Segmental and somatic dysfunction of cervical region G60.9 Hereditary and idiopathic neuropathy, unspecified R53.83 Other fatigue G90.3 Multi-system degeneration of the autonomic nervous system Office Visit 12/03/2014 3:45p Main Office as Kaiden Duncan 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 Of 03/22/13 DO, MPH (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 analgesic G89.4 Chronic pain syndrome G63 Polyneuropathy in diseases classified elsewhere M53.82 Other specified dorsopathies, cervical region G60.9 Hereditary and idiopathic neuropathy, unspecified R53.83 Other fatigue Z79.891 longterm (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 analgesic M54.2 Cervicalgia M99.01 Segmental and somatic dysfunction of cervical region Office Visit 11/05/2014 4:00p Main Office as Kaiden Duncan, 338.4 Chronic Pain Of 03/22/13 DO, MPH Syndrome 357.4 Polyneuropathy Other Disease Class Elsewhere 780.96 Generalized Pain 780.79 Malaise And Fatigue Other 723.9 Cervical Region Musculoskeletal Disorders & Symptoms Unspec 739.1 Lesion Nonallopathic Cervical Region Not Elsewhere Class 719.49 Pain Joint Multiple Sites Office Visit 10/07/2014 4:00p Main Office as Kaiden Duncan, 338.4 Chronic Pain Of 03/22/13 DO, MPH Syndrome 357.4 Polyneuropathy Other Disease Class Elsewhere 780.96 Generalized Pain 780.79 Malaise And Fatigue Other Office Visit 09/09/2014 4:00p Main Office as Kaiden Duncan, 338.4 Chronic Pain Of 03/22/13 DO, MPH Syndrome 357.4 Polyneuropathy Other Disease Class Elsewhere 723.9 Cervical Region Musculoskeletal Disorders & Symptoms Unspec 729.1 Myalgia & Myositis Unspec 780.96 Generalized Pain 719.49 Pain Joint Multiple Sites 780.79 Malaise And Fatigue Other Office Visit 08/10/2014 4:15p Main Office as Kaiden Duncan, 338.4 Chronic Pain Of 03/22/13 DO, MPH Syndrome 357.4 Polyneuropathy Other Disease Class Elsewhere 723.9 Cervical Region Musculoskeletal Disorders & Symptoms Unspec 729.1 Myalgia & Myositis Unspec 780.96 Generalized Pain 719.49 Pain Joint Multiple Sites Office Visit 07/10/2014 1:45p Main Office as Kaiden Duncan, 338.4 Chronic Pain Of 03/22/13 DO, MPH Syndrome 357.4 Polyneuropathy Other Disease Class Elsewhere 723.9 Cervical Region Musculoskeletal Disorders & Symptoms Unspec 729.1 Myalgia & Myositis Unspec 727.00 Synovitis & Tenosynovitis Unspec 780.96 Generalized Pain 780.79 Malaise And Fatigue Other 337.9 Autonomic Nervous System Disorder Unspec Office Visit 06/11/2014 3:15p Main Office as Kaiden Duncan, 338.4 Chronic Pain Of 03/22/13 DO, MPH Syndrome 357.4 Polyneuropathy Other Disease Class Elsewhere 723.9 Cervical Region Musculoskeletal Disorders & Symptoms Unspec 729.1 Myalgia & Myositis Unspec 727.00 Synovitis & Tenosynovitis Unspec 780.96 Generalized Pain 780.79 Malaise And Fatigue Other Office Visit 05/14/2014 4:00p Main Office as Kaiden Duncan, 338.4 Chronic Pain Of 03/22/13 DO, MPH Syndrome 357.4 Polyneuropathy Other Disease Class Elsewhere 723.9 Cervical Region Musculoskeletal Disorders & Symptoms Unspec 726.19 Shoulder Disorders Other 729.1 Myalgia & Myositis Unspec 719.49 Pain Joint Multiple Sites Office Visit 04/15/2014 2:45p Main Office as Kaiden Duncan, 338.4 Chronic Pain Of 03/22/13 DO, MPH Syndrome 357.4 Polyneuropathy Other Disease Class Elsewhere 723.9 Cervical Region Musculoskeletal Disorders & Symptoms Unspec 726.19 Shoulder Disorders Other 729.1 Myalgia & Myositis Unspec 719.49 Pain Joint Multiple Sites Office Visit 03/18/2014 2:30p Main Office as Kaiden Duncan, 338.4 Chronic Pain Of 03/22/13 DO, MPH Syndrome 723.9 Cervical Region Musculoskeletal Disorders & Symptoms Unspec 729.1 Myalgia & Myositis Unspec 727.00 Synovitis & Tenosynovitis Unspec 719.49 Pain Joint Multiple Sites 357.4 Polyneuropathy Other Disease Class Elsewhere Office Visit 02/02/2014 3:30p Main Office as Kaiden Duncan, 338.4 Chronic Pain Of 03/22/13 DO, MPH Syndrome 356.9 Neuropathy Peripheral Idiopathic Unspec 723.9 Cervical Region Musculoskeletal Disorders & Symptoms Unspec 729.1 Myalgia & Myositis Unspec 727.00 Synovitis & Tenosynovitis Unspec Office Visit 01/20/2014 4:15p Main Office as Kaiden Duncan, 338.4 Chronic Pain Of 03/22/13 DO, MPH Syndrome 356.9 Neuropathy Peripheral Idiopathic Unspec 726.19 Shoulder Disorders Other 724.5 Backache Unspec 719.49 Pain Joint Multiple Sites 780.96 Generalized Pain V58.69 Medications Dishroom Attendant (Current) Use Encounter Office Visit 12/22/2013 4:15p Main Office as Kaiden Duncan, 338.4 Chronic Pain Of 03/22/13 DO, MPH Syndrome 357.4 Polyneuropathy Other Disease Class Elsewhere 724.5 Backache Unspec 719.49 Pain Joint Multiple Sites 780.96 Generalized Pain Office Visit 11/19/2013 4:30p Main Office as Kaiden Duncan, 338.4 Chronic Pain Of 03/22/13 DO, MPH Syndrome 357.4 Polyneuropathy Other Disease Class Elsewhere 724.5 Backache Unspec 719.49 Pain Joint Multiple Sites 780.96 Generalized Pain Office Visit 10/22/2013 4:15p Main Office as Kaiden Duncan, 338.4 Chronic Pain Of 03/22/13 DO, MPH Syndrome 357.4 Polyneuropathy Other Disease Class Elsewhere 724.5 Backache Unspec 719.49 Pain Joint Multiple Sites 780.96 Generalized Pain 726.19 Shoulder Disorders Other Office Visit 10/06/2013 4:15p Main Office as Kaiden Duncan, 338.4 Chronic Pain Of 03/22/13 DO, MPH Syndrome 357.4 Polyneuropathy Other Disease Class Elsewhere 724.5 Backache Unspec 719.49 Pain Joint Multiple Sites 780.96 Generalized Pain Office Visit 09/24/2013 4:15p Main Office as Kaiden Duncan, 338.4 Chronic Pain Of 03/22/13 DO, MPH Syndrome 357.4 Polyneuropathy Other Disease Class Elsewhere 724.5 Backache Unspec 719.49 Pain Joint Multiple Sites 726.19 Shoulder Disorders Other Office Visit 09/11/2013 4:15p Main Office as Kaiden Duncan, 338.4 Chronic Pain Of 03/22/13 DO, MPH Syndrome 357.4 Polyneuropathy Other Disease Class Elsewhere 724.5 Backache Unspec 719.49 Pain Joint Multiple Sites 726.19 Shoulder Disorders Other Office Visit 09/03/2013 2:00p Main Office as Kaiden Duncan, 338.4 Chronic Pain Of 03/22/13 DO, MPH Syndrome 719.46 Pain Joint Knee 250.00 Diabetes Mellitus W/O Compl Type II Or Unspec Controlled 719.41 Pain Joint Shoulder Region 781.2 Gait Abnormality V58.83 Encounter For Therapeutic Drug Monitoring 357.4 Polyneuropathy Other Disease Class Elsewhere Plan of Treatment Future Appointment(s):03/21/2018 3:00 pm - Kaiden Duncan DO MPH at Main Office as Of 03/22/1400 - Kaiden Duncan DO, MPHG89.21 Chronic pain due to traumaComments:Chronic. Symptoms and complaints discussed and reviewed today. No significant changes in physical findings. Continue current medical pain management.M54.5 Low back painComments:Chronic. Symptoms and complaints discussed and reviewed today.No changes in physical findings. Patient is stable and comfortable when current medical therapy is rendered.R53.83 Other fatigueComments:Symptoms and complaints discussed and reviewed today. No significant changes in physical findings. Continue current medical pain management. B12 injection administered after patient evaluated. 1ml IM for fatigue. (See Consent for injection-B12 document for lot number and expiration date.)Z71.89 Other specified counselingComments:CAGE reviewed with patient. Counseled not to drive or use opioids while drinking. The patient clearly understands and agrees. No intervention necessary at this time. Will continue to monitor ETOH in UDT's.Z79.891 longterm (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 analgesicNew Labs:Urine Drug Screen, Ordered: 02/20/18Comments:Urine drug screen sample taken today to monitor opiate use and to monitor use of illicit substances.Will discuss results at next appointment.The following tests were ordered:6 AM, AMPH , JIL, IGGY, BUP, CARIS, COCM, COT, ETG, FENT, MCSHSG, OPI, OXY, PCP, TAPEN, XTSY, ZOLP. ~I_A urine drug test (UDT) was ordered for this patient and collected on site today. Creatinine has been ordered as well for specimen validity, not for kidney function. Preliminary UDT results are not final and should not be used to determine patient care or plan of treatment. Initially a qualitative immunoassay screen will be done. Any inconsistent or positive findings will be further tested with a more comprehensive quantitative confirmation LCMS study. It is part of the treatment process of prescribing controlled substances and is considered standard of care.~i_AllComments:All above symptoms and complaints discussed as well as diagnoses reviewed.Continue trial of opioid pain management - note changes below; injection therapy, osteopathic manipulation (OMT), PT / modalities, and consults as needed to manage chronic pain.Side effects discussed; anticipatory guidance given. Patient clearly understands and agrees with all medical treatments and suggestions. All medicines prescribed are adequate and appropriate for this patient's complaint of pain, medical history, physical, and personal goals.Goals of Treatment are to provide adequate and appropriate multidisciplinary medical pain management to increase/ maintain patient's quality of life and functionality while maintaining satisfactory side effect profile and minimizing long term care administrator end-organ damage. Activity as toleratedContinue with PCP
[2018-03-21 17:55] LABS: ABS Basophils 0 10^3/ul (0-0.2); ABS Eosinophils 0.2 10^3/ul (0-0.6); ABS Lymphocytes 3.3 10^3/ul (1.0-4.8); ABS Monocytes 0.7 10^3/ul (0-0.8); ABS Neutrophils 2.7 10^3/ul (1.5-7.7); ABS Nucleated RBC 0 10^3/ul; Eosinophil % 2.7 %; Hematocrit 37 % (35-47); Hemoglobin 11.9 g/dl (12.0-16.0); Mean Corpuscular HGB Conc 33 g/dl (31-36); Mean Corpuscular Hemoglobin 25 pg (27-31); Mean Corpuscular Volume 78 fL (80-97); Nucleated Red Blood Cells % 0; Platelet Count 253 10^3/ul (150-450); Red Blood Count 4.71 10^6/ul (4.00-5.40); Red Cell Distribution Width 16 % (10.5-15)
[2018-03-21 18:03] LABS: Activated Partial Thrombo Time 27.2 seconds (26.0-36.3); INR 0.9 (0.77-1.02)
[2018-03-21 18:15] LABS: Albumin 3.9 g/dL (3.2-5.2); Albumin/Globulin Ratio 1.3 (1-3); BUN/Creatinine Ratio 12.6 (8-20); EGFR African American 64.3 (>60); EGFR Non-African American 53.1 (>60); Potassium 3.8 mmol/L (3.5-5.0); Total Bilirubin 0.3 mg/dL (0.2-1.0); Total Protein 6.9 g/dL (6.4-8.9)
[2018-03-21 18:19] LABS: Troponin I 0.06 ng/mL (<0.04)
--- NOTE | 2018-03-21 18:20 | ED ---
Complex/Multi-Sys Presentation - HPI Summary HPI Summary: 67 [address] Dr. Duncan to [facility] accompanied by girl friend Deb with a chief complaint of fever 102 F since this afternoon. She additionally complains of bilateral back pain, noting that the left is more severe than the right. The patient rates the pain 9/10 in severity. Symptoms aggravated by nothing. Symptoms alleviated by nothing. Patient reports abdominal pain. Patient denies diaphoresis, chills, dysuria, hematuria, urine frequency, cough, sore throat, chest pain, shortness of breath. Patient has hx bladder infections. She reports that she has an unspecified autoimmune disease. Patient is taking Methotrexate. Patient forgot to take her insulin this afternoon. - History Of Current Complaint Chief Complaint: EDFluSymptoms Time Seen by Provider: 03/21/18 17:24 Hx Obtained From: Patient Onset/Duration: Lasting Hours - this afternoon, Still Present Timing: Constant Severity Currently: Severe Aggravating Factor(s): Nothing Alleviating Factor(s): Nothing Associated Signs And Symptoms: Positive: Other - Abdominal pain; NEGATIVE: diaphoresis, chills, dysuria, hematuria, urine frequency, cough, sore throat, chest pain, shortness of breath - Allergies/Home Medications Allergies/Adverse Reactions: Allergies Allergy/AdvReac Type Severity Reaction Status Date / Time methylparaben Allergy Intermediate Pain Verified 03/21/18 17:28 morphine Allergy Intermediate Hallucinati Verified 03/21/18 17:28 ons tizanidine Allergy Intermediate Swelling Verified 03/21/18 17:28 Of Face,Lips,& Throat Tricyclic Compounds Allergy Intermediate Altered Verified 03/21/18 17:28 Mental Status hydromorphone Allergy Mild See Comment Verified 03/21/18 17:28 itraconazole Allergy Mild Rash Verified 03/21/18 17:28 lanolin Allergy Mild Rash Verified 03/21/18 17:28 milnacipran Allergy Mild Rash And Verified 03/21/18 17:28 Itching mometasone furoate Allergy Mild Headache Verified 03/21/18 17:28 naloxone Allergy Mild Headache Verified 03/21/18 17:28 ondansetron Allergy Mild Headache Verified 03/21/18 17:28 oxycodone Allergy Mild Palpitation Verified 03/21/18 17:28 s oxymorphone Allergy Mild Palpitation Verified 03/21/18 17:28 s Penicillins Allergy Mild Rash Verified 03/21/18 17:28 pentazocine Allergy Mild Palpitation Verified 03/21/18 17:28 s propoxyphene Allergy Mild Rash Verified 03/21/18 17:28 sulfasalazine Allergy Mild Rash Verified 03/21/18 17:28 talc Allergy Mild Rash Verified 03/21/18 17:28 tramadol Allergy Mild Muscle Ache Verified 03/21/18 17:28 trazodone Allergy Mild Insomnia Verified 03/21/18 17:28 Adhesive Tape Allergy Unknown Unknown Verified 03/21/18 17:28 Reaction Details alprazolam Allergy Unknown Unknown Verified 03/21/18 17:28 Reaction Details aspirin Allergy Unknown Unknown Verified 03/21/18 17:28 Reaction Details cefaclor Allergy Unknown Unknown Verified 03/21/18 17:28 Reaction Details clarithromycin Allergy Unknown Unknown Verified 03/21/18 17:28 Reaction Details codeine Allergy Unknown Unknown Verified 03/21/18 17:28 Reaction Details diazepam Allergy Unknown Unknown Verified 03/21/18 17:28 Reaction Details diphenhydramine Allergy Unknown Unknown Verified 03/21/18 17:28 Reaction Details doxycycline Allergy Unknown Unknown Verified 03/21/18 17:28 Reaction Details duloxetine Allergy Unknown Unknown Verified 03/21/18 17:28 Reaction Details fentanyl Allergy Unknown See Comment Verified 03/21/18 17:28 fluoxetine Allergy Unknown Unknown Verified 03/21/18 17:28 Reaction Details gabapentin Allergy Unknown See Comment Verified 03/21/18 17:28 hydroxychloroquine Allergy Unknown Unknown Verified 03/21/18 17:28 Reaction Details paroxetine Allergy Unknown Unknown Verified 03/21/18 17:28 Reaction Details adhesive Allergy Blisters Verified 03/21/18 17:28 apple Allergy Anaphylatic Verified 03/21/18 17:28 Shock black pepper Allergy Hives/Diff. Verified 03/21/18 17:28 Breathing/I tching Bleach (Sodium Hypochlorite) Allergy Unknown Verified 03/21/18 17:28 Reaction Details capsaicin Allergy Unknown Verified 03/21/18 17:28 Reaction Details cigarette smoke Allergy Difficulty Verified 03/21/18 17:28 Breathing Corticosteroids Allergy Unknown Verified 03/21/18 17:28 (Glucocorticoids) Reaction Details melon Allergy Anaphylatic Verified 03/21/18 17:28 Shock mupirocin Allergy Unknown Verified 03/21/18 17:28 Reaction Details NSAIDS (Non-Steroidal Allergy Unknown Verified 03/21/18 17:28 Anti-Inflamma Reaction Details onion Allergy Hives/Diff. Verified 03/21/18 17:28 Breathing/I tching pepper (genus Capsicum) Allergy Unknown Verified 03/21/18 17:28 Reaction Details tapentadol [From Nucynta] Allergy Unknown Verified 03/21/18 17:28 Reaction Details lettuce AdvReac Stomach Verified 03/21/18 17:28 Cramps VINEGAR Allergy Intermediate TROUBLE Uncoded 03/21/18 17:28 BREATHING APPLESAUCE Allergy Mild Edema Uncoded 03/21/18 17:28 ENVRIONMENTAL Allergy Mild Sneezing Uncoded 03/21/18 17:28 chlorine Allergy Unknown Unknown Uncoded 03/21/18 17:28 Reaction Details PEPPERS Allergy Unknown Unknown Uncoded 03/21/18 17:28 Reaction Details BANDAIDS AdvReac Mild Blisters Uncoded 03/21/18 17:28 PMH/Surg Hx/FS Hx/Imm Hx Previously Healthy: No Endocrine/Hematology History: Reports: Hx Diabetes Denies: Hx Systemic Lupus Erythematosus, Hx Anemia Cardiovascular History: Reports: Hx Hypercholesterolemia, Hx Hypertension, Other Cardiovascular Problems/Disorders - SU[employer]- [employer]IL[employer]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 Denies: Hx Congestive Heart Failure - superior vena cava syndrome, Hx Pacemaker/ICD Respiratory History: Reports: Hx Asthma GI History: Reports: Hx Diverticulosis, Hx Gastroesophageal Reflux Disease, Hx Hiatal Hernia, Other GI Disorders - HX DIVERTICULOSIS Denies: Hx Jaundice History: Denies: Hx Dialysis, Hx Renal Disease Musculoskeletal History: Reports: Hx Arthritis - OSTEO, Hx Osteoporosis, Hx Tendonitis - WRISTS AND ELBOWS, Other Musculoskeletal History - DEGEN DISC DISEASE; chronic pain Denies: Hx Rheumatoid Arthritis - myeloradicular neurapathy Sensory History: Reports: Hx Cataracts - BILAT, Hx Contacts or Glasses Denies: Hx Hearing Aid Opthamlomology History: Reports: Hx Cataracts - BILAT, Hx Contacts or Glasses Neurological History: Reports: Hx Headaches, Hx Migraine - 2-3 TIMES PER WEEK- TREATS WITH IMITREX, Other Neuro Impairments/Disorders - multiple sclerosis, FIBROMYALGIA, MYELORADICULAR NEUROPATHY Psychiatric History: Reports: Hx Depression Denies: Hx Panic Disorder - Cancer History Hx Chemotherapy: No - Surgical History Surgery Procedure, Year, and Place: Hysterectomy 1999 [place]. D+C 1999 [place]. BOWEL RESECTION, COLOSTOMY 1993. COLOSTOMY WITH REVERSAL 1994 [place]. OVARIAN CYSTECTOMY 1996 [place]. LAP CRISTIAN WITH INFUSAPORT REMOVAL 2013 [place]. APPY REMOVAL OF RIGHT OVARIAN CYST AND RESECTION 1968. T&A. DEVIATED SEPTUM REPAIR. SINUS SURGERY 2005 [place]. INFUSAPORT 2004. 2015- LEFT EYE CATARACT REMOVED Hx Anesthesia Reactions: No - Immunization History Date of Influenza Vaccine: hsa not received Immunizations Up to Date: Yes Infectious Disease History: No Infectious Disease History: Reports: Hx Hepatitis - "medical"- only while taking a medication-states no longer takes, name unkn Denies: Traveled Outside the [place] in Last 30 Days - Family History Known Family History: Positive: Other - Breast CA; anesthesia reaction Negative: Cardiac Disease - Social History Alcohol Use: None Hx Substance Use: No Substance Use Type: Reports: None Hx Tobacco Use: Yes Smoking Status (MU): Former Smoker Type: Cigarettes Amount Used/How Often: 4 PPD X 15 YEARS Length of Time of Smoking/Using Tobacco: 20 YRS Have You Smoked in the Last Year: No Review of Systems Positive: Fever. Negative: Chills, Skin Diaphoresis Negative: Erythema Negative: Sore Throat Negative: Chest Pain Negative: Shortness Of Breath, Cough Negative: Abdominal Pain, Vomiting, Nausea Negative: dysuria, frequency, hematuria Positive: Other - bilateral back pain. Negative: Myalgia, Edema Negative: Rash Neurological: Negative - Dizziness All Other Systems Reviewed And Are Negative: Yes Physical Exam - Summary Physical Exam Summary: Constitutional: Well-developed, Well-nourished, Alert. (-) Distressed Skin: Patient's forehead is hot to touch, which warrants suspicion of fever HENT: Normocephalic; Atraumatic Eyes: Conjunctiva normal Neck: Musculoskeletal ROM normal neck. (-) JVD, (-) Stridor, (-) Tracheal deviation Cardio: Rhythm regular, rate normal, Heart sounds normal; Intact distal pulses; The pedal pulses are 2+ and symmetric. Radial pulses are 2+ and symmetric. (-) Murmur Pulmonary/Chest wall: Effort normal. (-) Respiratory distress, (-) Wheezes, (-) Rales Back: Bilateral CVA tenderness Abd: Soft, (-) epigastric tenderness, (-) Distension, (-) Guarding, (-) Rebound Musculoskeletal: (-) Edema Lymph: (-) Cervical adenopathy Neuro: Alert, Oriented x3 Psych: Mood and affect Normal Triage Information Reviewed: Yes Vital Signs On Initial Exam: Initial Vitals Temp Pulse Resp BP Pulse Ox 100.1 F 80 18 146/79 95 03/21/18 17:03 03/21/18 17:03 03/21/18 17:03 03/21/18 17:03 03/21/18 17:03 Vital Signs Reviewed: Yes Diagnostics - Vital Signs Vital Signs Temp Pulse Resp BP Pulse Ox 03/21/18 17:24 78 95 03/21/18 17:23 77 144/90 96 03/21/18 17:03 100.1 F 80 18 146/79 95 - Laboratory Lab Results: Lab Results 03/21/18 03/21/18 Range/Units 17:45 17:45 WBC 7.0 (3.5-10.8) 10^3/ul RBC 4.71 (4.00-5.40) 10^6/ul Hgb 11.9 L (12.0-16.0) g/dl Hct 37 (35-47) % MCV 78 L (80-97) fL MCH 25 L (27-31) pg MCHC 33 (31-36) g/dl RDW 16 H (10.5-15) % Plt Count 253 (150-450) 10^3/ul MPV 7.0 L (7.4-10.4) fL Neut % (Auto) 38.7 % Lymph % (Auto) 48.0 % [place] % (Auto) 10.3 % Eos % (Auto) 2.7 % Baso % (Auto) 0.3 % Absolute Neuts (auto) 2.7 (1.5-7.7) 10^3/ul Absolute Lymphs (auto) 3.3 (1.0-4.8) 10^3/ul Absolute Monos (auto) 0.7 (0-0.8) 10^3/ul Absolute Eos (auto) 0.2 (0-0.6) 10^3/ul Absolute Basos (auto) 0 (0-0.2) 10^3/ul Absolute Nucleated RBC 0 10^3/ul Nucleated RBC % 0 INR (Anticoag Therapy) 0.90 (0.77-1.02) APTT 27.2 (26.0-36.3) seconds Result Diagrams: 03/22/18 06:36 03/22/18 06:36 Lab Statement: Any lab studies that have been ordered have been reviewed, and results considered in the medical decision making process. - Radiology CXR Radiology Interpretation Completed By: ED Physician Summary of Radiographic Findings: No acute disease. Pending official report. - CT Abd/Pel CT Interpretation Completed By: Radiologist Summary of CT Findings: 1. No visible renal, ureteral or bladder calculi. 2. No other acute CT pathology. ED physician has reviewed this report. Re-Evaluation - Re-Evaluation First Eval Re-Evaluation Time: 20:45 Comment: She is agreeable to admission if needed Second Eval Re-Evaluation Time: 21:57 Change: Improved Comment: Patient's lactic acid has decreased with fluid boluses. Patient feels better. She is agreeable to admission. Complex Multi-Symp Course/Dx Course Of Treatment: 67 year old F from pain clinic to [facility] with a chief complaint of fever and low back pain since this afternoon. CT Abd/Pel shows no other acute CT pathology. In ED course, patient was given insulin, Dilaudid, and IV fluids. Bloodwork was remarkable for lactic acid 2.7 and troponin 0.06. Patient is diabetic. She takes Methotrexate. She has an unspecified immune disease. She reports no instrumentation in back and no spinal epidural injection. Because of possible sepsis, elevated troponin, and is immune compromised, we will ask the hospitalist to admit. Broad spectrum antibiotics were administered. Patient also found to have hx fibromyalgia. She reports having no chest pain. Consider epidural abscess. Spoke with Dr. Kim, hospitalist, at 22:00, who agrees to admit patient. Patient will be admitted to hospitalist. She is agreeable to this plan. - Diagnoses Provider Diagnoses: Sepsis, Fever of unknown origin, Elevated troponin, Lactic acidosis - Physician Notifications Discussed Care Of Patient With: Jaimee Kim Time Discussed With Above Provider: 22:00 Instructed by Provider To: Other - saleem Herrera, agrees to admit patient Discharge - Sign-Out/Discharge Documenting (check all that apply): Patient Departure - Admit Patient Received Moderate/Deep Sedation with Procedure: No - Discharge Plan Condition: Stable Disposition: ADMITTED TO [facility] - Billing Disposition and Condition Condition: STABLE Disposition: Admitted to [facility] - Attestation Statements Document Initiated by Shantaibe: Yes Documenting Scribe: Carmen Kim Provider For Whom Bishop is Documenting (Include Credential): Pawan Pyle MD Scribe Attestation: ICarmen, scribed for Pawan Pyle MD on 03/22/18 at 1307. Scribe Documentation Reviewed: Yes Provider Attestation: The documentation as recorded by the scribCarmen beltre accurately reflects the service I personally performed and the decisions made by me, Pawan Pyle MD Status of Scribe Document: Viewed
[2018-03-21] MEDS ORDERED: NS 0.9% 1000 ML** 2,100 ML IV ONE (18:24)
[2018-03-21] MEDS ORDERED: HYDROmorphone INJ* 1 MG/ML CARPUJECT SYRINGE IV SLOW PU ONE (18:26)
[2018-03-21 19:59] LABS: Urine Appearance Cloudy; Urine Bilirubin Negative (Negative); Urine Blood Negative (Negative); Urine Color Yellow; Urine Glucose 1+(50 mg/dL) (Negative); Urine Ketones Negative (Negative); Urine Nitrite Negative (Negative); Urine Protein Negative (Negative); Urine Specific Gravity 1.013 (1.010-1.030); Urine Urobilinogen Negative (Negative)
[2018-03-21] MEDS ORDERED: HYDROmorphone INJ1* 1 MG/ML SYRINGE IV ONE (20:00)
[2018-03-21] MEDS ORDERED: Insulin REGULAR(*) 1 UNITS UNIT SUBCUT ONE (20:29)
[2018-03-21] MEDS ORDERED: Ciprofloxacin 400MG IVPREMIX(* 400 MG/200 ML BAG IVPB ONE (20:35)
[2018-03-21] MEDS ORDERED: metroNIDAZOLE IV 500 MG/100ML* 500 MG/100 ML BAG IVPB ONE (20:35)
[2018-03-21] MEDS ORDERED: Vancomycin(*) 1,000 MG VIAL IVPB SCH (21:00)
[2018-03-21 21:10] LABS: Influenza A Molecular NEGATIVE (Negative); Influenza B Molecular NEGATIVE (Negative)
[2018-03-21] MEDS ORDERED: Vancomycin(*) 1,000 MG - ED ONCE IVPB ONE ×2 (22:00)
[2018-03-21] MEDS ORDERED: Morphine INJ* 2 MG/ML 1 ML SYRINGE (TWO MG - NEW SYRINGE VERSION) IV PRN (22:20)
[2018-03-21] MEDS ORDERED: Magnesium Hydroxide LIQ* 30 ML UDC PO PRN (22:23)
[2018-03-21] MEDS ORDERED: IPRATROPIUM BR (NF)0.03% NASAL 1 SPRAY BTL BOTH NARES PRN (22:23)
[2018-03-21] MEDS ORDERED: Baclofen TAB* 20 MG PO PRN (22:23)
[2018-03-21] MEDS ORDERED: Dextrose 50% Syringe 50 ML* 25 GM/50 ML SYRINGE IV PUSH PRN (22:27)
[2018-03-21] MEDS ORDERED: NS 0.9% 1000 ML** 1,000 ML IV SCH (22:30)
[2018-03-21] MEDS: oxyCODONE SR TAB(*) 10 MG TAB.SR PO PRN (23:58)
[2018-03-22] MEDS: metroNIDAZOLE IV 500 MG/100ML* 500 MG/100 ML BAG IVPB SCH ×3 (00:32→15:17)
--- NOTE | 2018-03-22 00:38 | HP ---
CC: Dr. Anila Saul * HISTORY AND PHYSICAL: DATE OF ADMISSION: 03/21/18 PRIMARY CARE PROVIDER: Dr. Anila Saul. CHIEF COMPLAINT: Abdominal pain and fever. HISTORY OF PRESENT ILLNESS: Keila Brown is a 67-year-old female with a history of insulin-dependent diabetes, fibromyalgia, and polyarthropathy; on methotrexate who went to see Dr. Duncan today for pain management and she skipped her insulin dose in the morning. Subsequently, she developed fevers and high sugars. She presented to the ED for evaluation. She had noted to be somewhat nauseated and complained of right lower quadrant abdominal pain. She stated that in the morning she felt like she was going to have diarrhea, but she had semi-formed bowel movement. She had not had any bowel movement since then. She complains of lower abdominal cramping. She also complains that her diffuse aches and pains that she usually has with fibromyalgia have exacerbated , specifically left flank pain. She is going to be admitted with diagnosis of sepsis, likely diverticulitis. PAST MEDICAL HISTORY: 1. History of diabetes, insulin-dependent. 2. History of demyelinating disease. 3. Migraines. 4. Fibromyalgia. 5. Peripheral neuropathy. 6. Polyarthropathy. 7. SVC syndrome. 8. Gastroesophageal reflux disease. 9. Osteoporosis. 10. Anemia. 11. Diverticulosis. 12. Chronic pain. 13. Degenerative disk disease. 14. Asthma. 15. Hypertension. 16. Status post laparoscopic cholecystectomy. 17. History of exploratory laparotomy with colostomy and reversal in the past. 18. History of hysterectomy. MEDICATIONS: Include: 1. Insulin NPH 70/30 at 45 units in the morning and 30 at bedtime. 2. Atenolol 12.5 mg daily. 3. Vitamin C 500 mg daily. 4. Ascorbate calcium/Ysabel-C tablet, the patient takes 500 mg b.i.d. 5. Alpha-lipoic acid 200 mg b.i.d. 6. Brimonidine tartrate 1 topically daily p.r.n. 7. Baclofen 20 mg up to 4 times a day p.r.n. 8. Astepro nasal spray 2 sprays both nostrils b.i.d. 9. Lipitor 10 mg at bedtime. 10. Clobetasol ointment 0.05% one application b.i.d. 11. Vitamin D3 at 4000 units daily. 12. Calcium carbonate 1000 mg b.i.d. p.r.n. 13. Maalox Advanced 1 chewable 3 times a day p.r.n. 14. Bumex 2 mg b.i.d. 15. Dexilant 60 mg b.i.d. 16. Dilaudid 8 mg every 3 hours p.r.n. 17. Folic acid 1 mg daily. 18. Floradix 10 mg b.i.d. 19. Estradiol 1 mg daily. 20. Linzess 290 mcg q.a.m. 21. Xyzal 5 mg daily. 22. Atrovent nasal 1 spray both nostrils 4 times a day p.r.n. 23. Insulin lispro sliding scale. 24. Methotrexate 50 mg subcutaneously every . Patient missed the dose today. 25. Milk of magnesia on a p.r.n. basis. 26. Milk thistle supplement 1 tablet daily. 27. Metronidazole topical 1 application b.i.d. p.r.n. 28. Zofran on a p.r.n. basis. 29. [place]-3 fatty acids at 2000 mg b.i.d. 30. Potassium chloride 10 mEq b.i.d. 31. Imitrex 100 mg tablet daily p.r.n. 32. Imitrex 6 mg subcutaneously daily p.r.n. 33. Zinc oxide paste on a p.r.n. basis. 34. Metformin 1000 mg b.i.d. 35. Oxycodone 10 mg b.i.d. p.r.n. ALLERGIES: Are multiple and include: methylparaben, MORPHINE, TIZANIDINE, TRICYCLIC COMPOUNDS, hydromorphone (please also note that patient's allergy is mild and patient also takes hydromorphone), ITRACONAZOLE, LANOLIN, MILNACIPRAN, MOMETASONE, NALOXONE, ZOFRAN, OXYCODONE, OXYMORPHONE, PENICILLINS, PENTAZOCINE, PROPOXYPHENE, SULFASALAZINE, talc, TRAMADOL, TRAZODONE, adhesive tape, ALPRAZOLAM, ASPIRIN, CEFACLOR, CLARITHROMYCIN, CODEINE, DIAZEPAM, BENADRYL, DOXYCYCLINE, DULOXETINE, FENTANYL, FLUOXETINE, GABAPENTIN, HYDROXYCHLOROQUINE, PAROXETINE, adhesives, apple, black pepper, bleach, CAPSAICIN, cigarette smoke, CORTICOSTEROIDS, melon, NONSTEROIDAL ANTIINFLAMMATORY MEDICATIONS, onion, pepper , NUCYNTA, lettuce, vinegar, applesauce, chlorine, Band-Aids. FAMILY HISTORY: Mother with history of CHF. Father with history of stomach cancer. SOCIAL HISTORY: Patient denies any tobacco, alcohol, or drug use. She lives alone with a cat. Her surrogate decision maker is her friend, Deb. REVIEW OF SYSTEMS: Please see history of present illness. The patient complains of chronic pain and has pressure points that are always tender and that is all exacerbated today. As above mentioned, she had GI complaints. Fever developed just today. She denies any shortness of breath. She denies any chest pain. Her legs are swollen all the time and she uses compression stockings. All the remaining 12 systems were reviewed with the patient and were, otherwise , negative. PHYSICAL EXAMINATION GENERAL: Patient is a pleasant 67-year-old female who is in no acute distress. Alert, awake, and oriented x3. VITAL SIGNS: Blood pressure of 140/81, heart rate of 69 and regular, respiratory rate 20, oxygen saturation 97% on room air, temperature of 100.1. HEENT: Head atraumatic and normocephalic. Eyes: Pupils are equal and reactive to light and accommodation. Oropharynx clear. Mucosa very dry. NECK: Supple. No JVD, no bruits bilaterally. RESPIRATORY: Clear to auscultation bilaterally. CARDIOVASCULAR: Regular rate and rhythm. No murmur. ABDOMEN: Soft, tender in the right lower quadrant with no rebound and no guarding. Bowel sounds present in all 4 quadrants. EXTREMITIES: There is bilateral +1 pedal edema. Pulses are +2 bilaterally. There is no clubbing or cyanosis. NEUROLOGIC: Speech clear. Cranial nerves II through XII are grossly intact. Motor strength is 5/5 bilaterally. On palpation of the patient's back and feet , the patient is tender to palpation on all the pressure points consistent with fibromyalgia. She appears to be more tender at the base of the left flank than on the right. She is not tender on palpation of her spine. PSYCHIATRIC EVALUATION: Alert and oriented x3 with no anxiety or depression. DIAGNOSTIC STUDIES/LAB DATA: Laboratory data showed influenza testing was negative. White blood cell count of 7.0, hemoglobin of 11.9, hematocrit of 37, and platelets of 233. Sodium 133, potassium 3.8, chloride was 98, carbon dioxide 27, BUN 13, creatinine 1.03. Liver function tests were unremarkable, apart from a slight elevation of alkaline phosphatase of 107. Troponin was 0.06. Lactic acid initially was 2.7; after fluid, it went down to 1.7. Glucose was 301 on presentation. Urinalysis was grossly unremarkable, apart from positive glucose. Portable chest x-ray reviewed by myself prior to the official radiologist's report did not show any acute cardiopulmonary abnormalities. Patient does have elevation of right hemidiaphragm. Patient's abdomen and pelvis CT, impression: "No visible renal, ureteral or bladder calculi. No acute CT pathology." Patient's EKG is pending at the time of dictation. ASSESSMENT AND PLAN: 1. Patient is septic. It appears to be related to her right lower quadrant abdominal pain. There is no pathology noted on the CT. I suspect patient may have episode of diverticulitis. She is going to be placed on ciprofloxacin and metronidazole that was already started in the emergency department. For her sepsis, patient already received an IV fluid bolus and IV fluid is going to be continued. Patient also is going to be placed on a clear liquid diet. 2. Patient's troponin is mildly elevated, but she complains of no chest pain or shortness of breath. We will check an echocardiogram in the morning and follow up troponins. 3. In regards to patient's history of polyarthralgia, her methotrexate is going to be held. 4. For her history of chronic pain syndrome/fibromyalgia, her outpatient narcotics are going to be continued. 5. Patient is markedly dehydrated and her diabetes is uncontrolled. Patient is going to be placed on insulin Lantus at a lower dose due to being on clear liquid diet only as well as lispro sliding scale. 6. For DVT prophylaxis, patient is going to be placed on heparin subcutaneously. 7. Patient's code status is full and her surrogate is her friend, Deb. TIME SPENT: Approximately 65 minutes were spent on the admission of this patient, more than half that time was spent [id number] with the patient during the interview and physical exam. [id number]/[facility] #: [id number] [facility]
[2018-03-22] MEDS: HYDROmorphone INJ1* 1 MG/ML SYRINGE IV SLOW PU PRN ×6 (01:15→18:16)
[2018-03-22] MEDS: Insulin LISPRO* 1 UNITS UNIT SUBCUT SCH ×5 (02:17→22:14)
[2018-03-22] MEDS: Insulin GLARGINE(*) 1 UNITS UNIT SUBCUT SCH ×2 (03:20→22:15)
[2018-03-22] MEDS: HYDROmorphone TAB* 4 MG PO SCH ×2 (03:21→05:12)
[2018-03-22] MEDS: Heparin VIAL(*) 5000 UNITS/ML VIAL (FIVE THOUSAND) SUBCUT SCH ×3 (06:30→22:15)
[2018-03-22 06:46] LABS: ABS Basophils 0 10^3/ul (0-0.2); ABS Eosinophils 0.2 10^3/ul (0-0.6); ABS Lymphocytes 2.6 10^3/ul (1.0-4.8); ABS Monocytes 0.9 10^3/ul (0-0.8); ABS Neutrophils 4.2 10^3/ul (1.5-7.7); ABS Nucleated RBC 0 10^3/ul; Eosinophil % 2.9 %; Hematocrit 35 % (35-47); Hemoglobin 11.3 g/dl (12.0-16.0); Lymphocyte % 33.1 %; Mean Corpuscular HGB Conc 32 g/dl (31-36); Mean Corpuscular Hemoglobin 25 pg (27-31); Mean Corpuscular Volume 78 fL (80-97); Mean Platelet Volume 7.1 fL (7.4-10.4); Nucleated Red Blood Cells % 0; Platelet Count 230 10^3/ul (150-450); Red Blood Count 4.47 10^6/ul (4.00-5.40); Red Cell Distribution Width 16 % (10.5-15); White Blood Count 7.9 10^3/ul (3.5-10.8)
[2018-03-22 07:07] LABS: BUN/Creatinine Ratio 10.2 (8-20); Calcium 8.9 mg/dL (8.6-10.3); EGFR African American 77.1 (>60); EGFR Non-African American 63.7 (>60); Potassium 3.8 mmol/L (3.5-5.0)
[2018-03-22 07:27] LABS: Troponin I 0.05 ng/mL (<0.04)
[2018-03-22] MEDS: Atenolol TAB* 25 MG PO SCH (09:25)
[2018-03-22] MEDS: Clobetasol 0.05% OINT* 30 GM TUBE TOPICAL SCH ×2 (09:26→22:21)
[2018-03-22] MEDS: HYDROMORPHONE 8 MG PO SCH ×5 (09:36→21:49)
[2018-03-22 10:03] LABS: C Reactive Protein 1.3 mg/L (<8.01)
[2018-03-22 10:03] LABS: C Reactive Protein 1.04 mg/L (<8.01)
[2018-03-22] MEDS: oxyCODONE SR TAB(*) 10 MG TAB.SR PO PRN (12:11)
[2018-03-22] MEDS: Pantoprazole TAB * 40 MG TAB PO SCH (12:11)
[2018-03-22] MEDS: Ciprofloxacin 400MG IVPREMIX(* 400 MG/200 ML BAG IVPB SCH ×2 (12:12→23:22)
--- NOTE | 2018-03-22 12:35 | ECHO ---
Patient: JESSICA GRAFF [facility] Rec#: [id number] : 1950 Date: 03/22/2018 Age: 67y Height: 162.6 cm / 64.0 in Weight: 68 kg / 149.9 lbs Sex: F BSA: 1.7 Room#: [facility] Admit Date#: 03/21/2018 Type: Inpatient Referring: Jaimee Kim MD Reading: Vipin Manley DO Security Infrastructure Engineer: Iris Allen RN RDCS CC: Anila Saul MD Transthoracic Echocardiogram Indication: Elevated troponin level, SOB BP: 110/51 HR: 68 Rhythm: NSR Findings History: HTN, HLD, DM, asthma, GERD, anemia, migraines, demyelinating disease, SVC syndrome. Technical Comments: The study quality is fair. The study is technically limited due to poor acoustic windows. The study was technically limited due to the patient's inability to lay in the left lateral decubitus position. The patient had chest wall tenderness. She refused Definity. Left Ventricle: The left ventricular chamber size is normal. Mild concentric left ventricular hypertrophy is observed. Global left ventricular wall motion and contractility are within normal limits. There is normal left ventricular systolic function. The estimated ejection fraction is 55-60%. There is no consistent Doppler evidence of clinically significant diastolic dysfunction. The patient was unable to perform a Valsalva maneuver. Left Atrium: The left atrial chamber size is normal. Right Ventricle: The right ventricular chamber size and systolic function are within normal limits. Right Atrium: The right atrial cavity size is normal. Aortic Valve: The aortic valve leaflets are mildly thickened. There is no evidence of aortic regurgitation. There is no evidence of aortic stenosis. Mitral Valve: The mitral valve leaflets are mildly thickened. There is trace to mild mitral regurgitation. There is no evidence of mitral stenosis. Tricuspid Valve: The tricuspid valve leaflets are normal. There is mild tricuspid regurgitation. Unable to estimate the right ventricular systolic pressure. There is no tricuspid stenosis. Pulmonic Valve: The pulmonic valve structure is not well visualized. There is a trace pulmonic regurgitation. There is no pulmonic stenosis. Pericardium: There is no significant pericardial effusion. Aorta: There is no dilatation of the ascending aorta. There is no dilatation of the aortic arch. There is no dilation of the aortic root. Pulmonary Artery: The main pulmonary artery is not well visualized. Venous: The inferior vena cava is dilated. There is less than 50% respiratory change in the inferior vena cava dimension. Conclusions The left ventricular chamber size is normal. Mild concentric left ventricular hypertrophy is observed. There is normal left ventricular systolic function. The estimated ejection fraction is 55-60% without any obvious segmental wall motion abnormalities on fair quality imaging. Patient declined definity imaging enhancement agent. The left atrial chamber size is normal. The right ventricular chamber size and systolic function are within normal limits. Unable to estimate the right ventricular systolic pressure. No significant valvular abnormalities noted Compared to prior study from 11/2017, LVEF previously hyperdynamic Measurements Name Value Normal Range RVDdMajor (2D) 3.1 cm (2.2 - 4.4) RAd ISD 4CH 4 cm (3.4 - 4.9) RA (A4C)W 3.6 cm (2.9 - 4.6) IVSd (2D) 1.2 cm (0.6 - 1) LVPWd (2D) 1.1 cm (0.6 - 1) Aortic Annulus 1.9 cm (1.4 - 2.6) Ao root diameter (2D) 3.1 cm (2.1 - 3.5) Ascending Ao 3.3 cm (2.1 - 3.4) Aortic arch 2.3 cm (1.8 - 3.4) LA dimension (AP) 2D 3 cm (2.3 - 3.8) LAd ISD 4CH 3.4 cm (2.9 - 5.3) LA ISD 4CH W 4.4 cm (2.5 - 4.5) Name Value Normal Range LA ESV SP 4CH (A/L) 30 ml - LA ESV SP 2CH (A/L) 33 ml - LA ESV BP (A/L) 34 ml - LA ESV BP (A/L) index 19.8 ml/m2 - LA ESV SP 4CH (MOD) 28 ml - LA ESV SP 2CH (MOD) 31 ml - Name Value Normal Range MV E-wave Vmax 0.93 m/sec - MV deceleration time 249 msec - MV A-wave Vmax 0.97 m/sec - MV E:A ratio 0.96 ratio - LV septal e' Vmax 0.09 m/sec - LV lateral e' Vmax 0.1 m/sec - LV E:e' septal ratio 10.3 ratio - LV E:e' lateral ratio 9.3 ratio - Name Value Normal Range AV Vmax 1.1 m/sec - AV VTI 26.7 cm - AV peak gradient 5 mmHg - AV mean gradient 3 mmHg - LVOT Vmax 0.87 m/sec - LVOT VTI 20.8 cm - LVOT peak gradient 3 mmHg - LVOT mean gradient 2 mmHg - ANGELES Vmax 0.53 m/sec - Name Value Normal Range IVC diameter 2.4 cm - Name Value Normal Range PV Vmax 0.69 m/sec -
[2018-03-22] MEDS ORDERED: SUMAtriptan SQ* 6 MG/0.5 ML VIAL SUBCUT PRN (19:16)
[2018-03-23] MEDS: metroNIDAZOLE IV 500 MG/100ML* 500 MG/100 ML BAG IVPB SCH ×2 (00:41→09:52)
[2018-03-23 03:19] VITALS: BP 116/65
[2018-03-23] MEDS: HYDROMORPHONE 8 MG PO SCH ×5 (03:33→12:20)
[2018-03-23] MEDS ORDERED: diPHENhydraMINE IV* 50 MG/ML 1 ml VIAL (BENADRYL) ONE (06:26)
[2018-03-23] MEDS: diPHENhydraMINE IV* 50 MG/ML 1 ml VIAL (BENADRYL) IV PRN ×2 (06:31→10:59)
[2018-03-23 06:32] LABS: Hematocrit 37 % (35-47); Hemoglobin 12.1 g/dl (12.0-16.0); Mean Corpuscular HGB Conc 33 g/dl (31-36); Mean Corpuscular Hemoglobin 26 pg (27-31); Mean Corpuscular Volume 78 fL (80-97); Red Blood Count 4.74 10^6/ul (4.00-5.40); Red Cell Distribution Width 16 % (10.5-15); White Blood Count 9.4 10^3/ul (3.5-10.8)
[2018-03-23 06:33] LABS: Albumin 3.4 g/dL (3.2-5.2); Albumin/Globulin Ratio 1.1 (1-3); C Reactive Protein 1.28 mg/L (<8.01); Calcium 9.2 mg/dL (8.6-10.3); EGFR African American 79.2 (>60); EGFR Non-African American 65.4 (>60); Potassium 3.9 mmol/L (3.5-5.0); Total Bilirubin 0.6 mg/dL (0.2-1.0); Total Protein 6.4 g/dL (6.4-8.9)
[2018-03-23] MEDS: HYDROmorphone INJ1* 1 MG/ML SYRINGE IV SLOW PU PRN ×2 (06:44→09:45)
[2018-03-23] MEDS: Heparin VIAL(*) 5000 UNITS/ML VIAL (FIVE THOUSAND) SUBCUT SCH (06:44)
[2018-03-23 06:59] LABS: ABS Basophils 0.1 10^3/ul (0-0.2); ABS Eosinophils 0.3 10^3/ul (0-0.6); ABS Lymphocytes 4.6 10^3/ul (1.0-4.8); ABS Monocytes 0.8 10^3/ul (0-0.8); ABS Neutrophils 3.7 10^3/ul (1.5-7.7); ABS Nucleated RBC 0 10^3/ul; Eosinophil % 3.1 %; Lymphocyte % 48.5 %; Nucleated Red Blood Cells % 0.1; Platelet Count 218 10^3/ul (150-450)
[2018-03-23] MEDS: Clobetasol 0.05% OINT* 30 GM TUBE TOPICAL SCH (08:31)
[2018-03-23] MEDS: Atenolol TAB* 25 MG PO SCH (09:38)
[2018-03-23] MEDS: Pantoprazole TAB * 40 MG TAB PO SCH (09:39)
[2018-03-23] MEDS: Insulin LISPRO* 1 UNITS UNIT SUBCUT SCH ×2 (09:42→12:53)
[2018-03-23] MEDS ORDERED: SUMAtriptan SQ* 6 MG/0.5 ML VIAL SUBCUT PRN (12:15)
[2018-03-23] MEDS: Ciprofloxacin 400MG IVPREMIX(* 400 MG/200 ML BAG IVPB SCH (12:19)
--- NOTE | 2018-03-24 22:41 | DS ---
CC: Dr. Jared Henderson; Dr. Kaiden Duncan * DISCHARGE SUMMARY: DATE OF ADMISSION: 03/21/18 DATE OF DISCHARGE: 03/23/18 DISCHARGE DIAGNOSES: 1. Sepsis. 2. Fever, likely respiratory infection. 3. Type 2 diabetes mellitus. 4. Elevated troponin due to stress ischemia. 5. Multiple allergies. 6. Migraine headache. 7. Medication noncompliance. 8. Chronic pain. 9. Hyperlipidemia. 10. Gastroesophageal reflux disease. 11. Chronic constipation. 12. Chronic demyelinating disease. 13. Fibromyalgia. 14. Peripheral neuropathy. 15. Polyarthropathy. 16. History of superior vena cava syndrome. 17. Osteoporosis. 18. Diverticulosis. 19. Degenerative joint disease. 20. History of asthma. 21. History of hypertension. HISTORY: Keila Brown is a 67-year-old woman admitted with fever. Please see the dictated admission note for details of the present illness, past medical history, family history, social and personal history, review of systems , and physical examination. DIAGNOSTIC STUDIES/LAB DATA: CBC on 03/21/18: WBC 7, H and H 11.9/37, MCV 78, PLT 253K. CBC on 03/22/18: WBC 7.9, H and H 11.3/35, MCV 78, PLT 230K. CBC on 03/23/18: WBC 9.4, H and H 12.1/37, MCV 78, PLT 218K. INR 0.90, PTT 27.2, both normal. Chemistries on admission: Sodium 133, potassium 3.8, chloride 98 , CO2 27, BUN and creatinine 13/1.03, glucose 301. Rest of her comprehensive metabolic panel was within normal limits except for alkaline phosphatase slightly elevated at 107. Lactic acid was 2.7 on 03/21/18 at 1745; 1.7 on at 2116. Troponin serially followed was 0.06, 0.07, 0.05. [id number]-[id number] glucoses ranged from 65 to 204. CRPs were 1.3 on 03/21/18, 1.04 on 03/22/18, and 1.28 on 03/23/18. Urinalysis: Yellow, cloudy, specific gravity 1.013, pH 7 , dipsticks negative except for 1+ glucose. Serology for influenza A and B was negative. Blood cultures x2 with no growth up until now. Imaging: Chest x-ray showed no acute disease. CT of the abdomen and pelvis showed diverticulosis without evidence of diverticulitis. There were noted to be bibasilar atelectatic changes or scarring in the lower thorax. She had stable possible bone islands and sclerotic hemangioma of the L5 vertebral body, stable subcutaneous varicose collateral veins of the ventral abdomen and pelvis , stable atherosclerotic aortic and iliac artery calcifications. No acute pathology was noted. EKG on 03/21/18 showed sinus rhythm, borderline low-voltage extremity leads, otherwise normal EKG. Anterior voltage had increased in T-waves were more prominent bu otherwise no significant changes since the previous record of 05/06. Telemetry monitoring during admission showed normal sinus rhythm. Transthoracic echocardiogram, 03/21/18, showed mild concentric LVH, EF 55% to 60 %, no diastolic dysfunction. She refused DEFINITY. Echo was essentially within normal limits. HOSPITAL COURSE: The patient was admitted. She was initially thought to have possible diverticulitis as the cause of her fever. She was placed on metronidazole and Cipro. Her methotrexate was held. Her usual narcotics were continued. She was felt to be volume depleted. She received IV fluids. She was placed on Lantus at a lower dose due to being on clear liquid diet and a lispro sliding scale. She was given heparin subcutaneously for DVT prophylaxis. She had low-grade fever of 100 initially. She defervesced after being admitted and did not have any fever after that. Exam showed bilateral lower quadrant tenderness to exam on the day following admission and she had rales at the right base. It was felt that she might have a respiratory infection versus diverticulitis. Labs were followed. She never had a rise in her CRP. She might have had a respiratory viral illness or may have had a mild pneumonia. By 03/23/18, she was feeling like she was having an allergic reaction to something, possibly the linens, possibly the Dilaudid she was receiving, although it was noted that she was getting MERLIN Dilaudid just like she takes at home. She had been treated for migraine headache with Imitrex on 03/22/18 and again on 03/23/18. She did feel up to feeling go home on 03/23/18 , did not see any reason to stay in the hospital. On exam, her skin was flushed. She had rales at the right base on exam. Her abdomen has had mild diffuse tenderness. With the normal CRP and the lack of evidence of diverticulitis on the CT, it was felt unlikely that she had diverticulitis. The etiology of her fever was uncertain, possibly respiratory illness, possibly bacterial, possibly viral. It was felt that she could be discharged home on Levaquin. At the time of discharge, she is being discharged on her usual diet. She should follow up with me in 4-7 days. She will be on her usual diet. MEDICATIONS: As follows: 1. Levaquin 250 mg daily for 5 days. 2. Metformin 1000 mg twice daily. 3. Bumex 2 mg twice a day. 4. Ondansetron 4 mg every 4 hours as needed. 5. Dexilant 60 mg every day. 6. Linzess 290 mcg every morning. 7. Levocetirizine 5 mg every day. 8. Azelastine nasal spray, 2 sprays both nostrils twice daily. 9. Folic acid 1 mg once daily with meals. 10. [place]-3 fatty acids 2000 mg twice a day. 11. Ipratropium 0.03% nasal spray 4 times a day as needed. 12. Dilaudid MERLIN 8 mg every 3 hours, not to exceed 56 mg per day. 13. Oxycodone SR 10 mg twice daily as needed, not to exceed 20 mg per day. 14. Sumatriptan 100 mg every day orally or 6 mg subcu. 15. Alpha-lipoic acid 200 mg twice daily. 16. Ascorbic acid/vitamin C 500 mg every day. 17. Baclofen 20 mg 4 times a day as needed. 18. Clobetasol ointment twice daily as directed. 19. Metronidazole cream 1 application twice daily as needed. 20. Milk thistle 70 mg every day. 21. Clotrimazole/betamethasone (Lotrisone cream as directed). 22. Humalog 2 to 10 units 4 times a day as needed. 23. Atorvastatin 10 mg daily. 24. Atenolol 12.5 mg every day. 25. Magnesium hydroxide liquid 30 mL twice daily as needed for constipation or indigestion. 26. Calcium carbonate 1000 mg twice daily as needed. 27. Ysabel-C 500 mg twice a day. 28. Zinc oxide as needed. 29. Brimonidine tartrate/Mirvaso 1 application topically every day as needed. 30. Floradix 10 mL twice a day with meals. 31. Estradiol 1 mg every day. 32. Epinephrine 0.3 as needed. 33. Potassium chloride 10 mEq twice a day. 34. NovoLog 70/30, 40 units subcutaneous in the morning and 30 units in the evening. [id number]/CPS #: [id number] MTDD
== END 2018-03-23 13:15 | disposition home or self-care (01) | DRG 872 ==
LOC: ED 17:03 → MED 22:20 → OBSVTOIN 03-22 12:00
PROVIDERS: ADMIT Internal Medicine; ATTEND Internal Medicine Geriatric Medicine
DX: A41.9 Sepsis, unspecified organism (principal); E87.2 Acidosis; G37.9 Demyelinating disease of central nervous system, unspecified; I24.8 Other forms of acute ischemic heart disease; D89.89 Other specified disorders involving the immune mechanism, not elsewhere classified; I10 Essential (primary) hypertension; J45.909 Unspecified asthma, uncomplicated; K21.9 Gastro-esophageal reflux disease without esophagitis; K57.90 Diverticulosis of intestine, part unspecified, without perforation or abscess without bleeding; K44.9 Diaphragmatic hernia without obstruction or gangrene; G43.909 Migraine, unspecified, not intractable, without status migrainosus; G35 Multiple sclerosis; M79.7 Fibromyalgia; F32.9 Major depressive disorder, single episode, unspecified; R74.8 Abnormal levels of other serum enzymes; G89.4 Chronic pain syndrome; E11.65 Type 2 diabetes mellitus with hyperglycemia; E86.0 Dehydration; M13.0 Polyarthritis, unspecified; J98.8 Other specified respiratory disorders; E11.42 Type 2 diabetes mellitus with diabetic polyneuropathy; E78.5 Hyperlipidemia, unspecified; K59.09 Other constipation; M81.0 Age-related osteoporosis without current pathological fracture; E11.36 Type 2 diabetes mellitus with diabetic cataract; Z88.8 Allergy status to other drugs, medicaments and biological substances; Z88.5 Allergy status to narcotic agent; Z88.0 Allergy status to penicillin; Z88.2 Allergy status to sulfonamides; Z88.1 Allergy status to other antibiotic agents; Z91.018 Allergy to other foods; Z90.710 Acquired absence of both cervix and uterus; Z98.42 Cataract extraction status, left eye; Z80.3 Family history of malignant neoplasm of breast; Z87.891 Personal history of nicotine dependence; Z90.49 Acquired absence of other specified parts of digestive tract; Z93.3 Colostomy status; Z82.49 Family history of ischemic heart disease and other diseases of the circulatory system; Z80.0 Family history of malignant neoplasm of digestive organs; Z91.14 Patient's other noncompliance with medication regimen; Z79.84 Long term (current) use of oral hypoglycemic drugs
CPT/HCPCS: 36415; 71045; 74176; 80048; 80053; 81003; 83605; 84145; 84484; 85025; 85610; 85730; 86140; 87040; 93005; 93306; 99285; A9270-GY; J0744; J1170; J1200; J1644; J2270; J3030; J3370; J3490

== ENCOUNTER 2018-10-23 09:42 | Inpatient (IN) | payer MEDICARE, MEDICAID ==
--- OUTSIDE RECORDS SUMMARY | 2018-10-23 11:01 | XMS REPORT | Continuity of Care Document ---
:1950 External Reference #:[id number] Author Name Kaiden Duncan DO, MPH Address [address] [place] [address], [address] [place] [address] Care Team Providers Name Role Phone Anila Saul M.D. - Internal Care Team Information Sports Medicine Coordinator Medicine Problems Active Problems Provider Date Type 2 diabetes mellitus Kaiden Duncan DO, MPH Onset: 09/03/2013 Social History Type Date Description Comments Sex Unknown Cigarette Use Former Cigarette Smoker 4 Packs Daily ETOH Use Denies alcohol use Tobacco Use Start: Unknown End: Unknown Patient is a former smoker Smoking Status Reviewed: 09/23/18 Patient is a former smoker Allergies, Adverse Reactions, Alerts Active Allergies Reaction Severity Comments Date Aspirin 09/03/2013 Benadryl in pink pill form 09/03/2013 Ceclor 09/03/2013 Clinoril 09/03/2013 Codeine 09/03/2013 Cortisone 09/03/2013 Cymbalta 09/03/2013 Darvocet 09/03/2013 Darvon 09/03/2013 Dilaudid generic only 09/03/2013 Doxepin 09/03/2013 Doxycycline 09/03/2013 Elavil 09/03/2013 Feldene 09/03/2013 Fentanyl 09/03/2013 Hydroxyquinoline 09/03/2013 Itraconazole 09/03/2013 Lanolin 09/03/2013 Medrol 09/03/2013 Morphine 09/03/2013 Motrin 09/03/2013 Naprosyn 09/03/2013 Nasonex 09/03/2013 Neurontin 09/03/2013 Norpramin 09/03/2013 Oxymorphone 09/03/2013 Oxycodone generic only 09/03/2013 Paxil 09/03/2013 Penicillin 09/03/2013 Percocet 09/03/2013 Percodan 09/03/2013 Prozac 09/03/2013 Savella 09/03/2013 Sulfasalazine 09/03/2013 Talc 09/03/2013 Talwin Nx 09/03/2013 Trazodone 09/03/2013 Tricyclics 09/03/2013 Ultram 09/03/2013 Valium 09/03/2013 Xanax 09/03/2013 Zanaflex 09/03/2013 Zofran pills only 09/03/2013 Adhesives tape 09/03/2013 Lanolin 09/03/2013 Chlorine 09/03/2013 Apples juice, applesauce 09/03/2013 Cantaloupe 09/03/2013 Honeydew 09/03/2013 [place] Lettuce 09/03/2013 Melon 09/03/2013 Black Pepper 09/03/2013 Peppers green, yellow, red 09/03/2013 Onion raw 09/03/2013 Cats 09/03/2013 Cigarette Smoke 09/03/2013 Dust 09/03/2013 Ragweed 09/03/2013 Nucynta rash, watery eyes, sinus 10/06/2013 issues, lungs filling with fluid Medications Active Medications SIG Qnty Indications Ordering Date Provider Dilrichard si-2 by mouth 210tabs Kaiden Duncan, 01/20/2014 8mg Tablets q3-4 hours as DO, [facility] directed chronic pain patient Lidocaine sig: apply cream Unknown 4% Cream to affected area three times a day. chronic pain patient Sumatriptan Succinate Unknown 6mg/0.5ML Solution Auto-Inject Alpha-Lipoic Acid take one capsule Unknown 100mg by mouth every Capsules 8-12 hours as directed chronic pain. Atenolol 1 by mouth every Unknown 25mg Tablets day Bumex Unknown 2mg Tablets Epinephrine Unknown 0.3mg/0.3ML Solution Auto-Inject Estradiol si by mouth Unknown 1mg Tablets every day Ipratropium [place] Unknown 0.06% Solution Levocetirizine sig: take 1 by Unknown Dihydrochloride mouth daily 5mg Tablets Vitamin C si by mouth Unknown 500mg Tablets twice a day Metronidazole Unknown 1% Gel Triple Paste Unknown 12.8% Ointment Fish Oil 2 by mouth every Unknown 1000mg Capsules day as directed Jardiance Unknown 10mg Tablets Xultophy Unknown 100-3.6Unit-mg/ML Solution Pen-Inject Novolog Penfill Unknown 100Unit/ML Solution Cartridge Epiklor 1 daily Unknown 20Meq Packet Folic Acid 1 po qd Unknown 1mg Tablets Imitrex 1-2 by mouth 20tabs Unknown 50mg Tablets every day as directed Metformin HCL 1 po bid Unknown 1000mg Tablets Ondansetron HCL 1 q 4 hrs for Unknown 4mg Tablets nausea Clobetasol Propionate Unknown 0.05% Cream Vitamin D 1 po qid Unknown 1000Unit Tablets Maalox prn Unknown 600mg Chewtabs Mylanta Gas Relief prn Unknown Maximum Strength 125mg Capsules Linzess si po qd 30caps Unknown 145mcg Capsules Dexilant si po qd 30caps Unknown 60mg Capsules DR Azelastine HCL Unknown 137mcg/Arnold Solution Lipitor 1 by mouth daily Unknown 10mg Tablets Floradix 2 teaspoon twice Unknown Liquid daily before meals Baclofen 1 by mouth every Unknown 20mg Tablets 6-8 hours Clotrimazole/Betamethas Unknown one Dipropionate 1-0.05% Cream History Medications Xtampza ER take 1 by mouth every 60units Kaiden Duncan, 05/07/2018 - 9mg 12 hours as directed , MPH 06/11/2018 C12a chronic pain. new medication. Immunizations Description No Information Available Vital Signs Date Vital Result Comment 09/23/2018 2:59pm BP Systolic 130 mmHg BP Diastolic 82 mmHg Heart Rate 84 /min Respiratory Rate 20 /min Height 64 inches 5'4" Weight 162.00 lb Pain Level 8 Pain at this time. Pain Level With Medicine 7 on average with meds Pain Level Without Medicine 9 without meds BMI (Body Mass Index) 27.8 kg/m2 08/26/2018 2:44pm BP Systolic 128 mmHg BP Diastolic 74 mmHg Heart Rate 76 /min Respiratory Rate 20 /min Height 64 inches 5'4" Weight 162.00 lb Pain Level 8 Pain at this time. Pain Level With Medicine 8 on average with meds Pain Level Without Medicine 9 without meds BMI (Body Mass Index) 27.8 kg/m2 Results Description No Information Available Procedures Date Code Description Status 08/26/2018 86198 Therapeutic, Prophylactic Or Diagnostic Injection Subq/Im Completed 07/23/2018 91685 Therapeutic, Prophylactic Or Diagnostic Injection Subq/Im Completed 06/11/2018 94013 Omt 1-2 Body Regions Completed 06/11/2018 29669 Therapeutic, Prophylactic Or Diagnostic Injection Subq/Im Completed 05/16/2018 76886 Therapeutic, Prophylactic Or Diagnostic Injection Subq/Im Completed 04/18/2018 66319 Brief Emotional/Behav Assessment W/ Scoring Doc Per Completed Standard Inst Medical Devices Description No Information Available Encounters Type Date Location Provider Dx Diagnosis Office Visit 08/26/2018 Main Office as Of Kaiden Duncan DO 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 M54.2 Cervicalgia M54.5 Low back pain 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 R53.83 Other fatigue Office Visit 07/23/2018 2:45p Main Office as Kaiden Duncan 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, 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 M54.5 Low back pain M54.2 Cervicalgia R53.83 Other fatigue Z79.891 [facility] (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 analgesic Office Visit 06/11/2018 2:30p Main Office as Kaiden Duncan 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, 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 M54.2 Cervicalgia M54.5 Low back pain M99.01 Segmental and somatic dysfunction of cervical region R53.83 Other fatigue Z79.891 [facility] (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 analgesic Office Visit 06/05/2018 2:30p Main Office as Kaiden Duncan 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, 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 M54.5 Low back pain Office Visit 05/16/2018 3:00p Main Office as Kaiden Duncan 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, 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 M54.5 Low back pain M54.2 Cervicalgia M79.7 Fibromyalgia M06.89 Other specified rheumatoid arthritis, multiple sites E11.8 Type 2 diabetes mellitus with unspecified complications K59.00 Constipation, unspecified R53.83 Other fatigue 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 Office Visit 04/18/2018 3:00p Main Office as Kaiden Duncan 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, 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 M54.5 Low back pain M54.2 Cervicalgia E11.9 Type 2 diabetes mellitus without complications E78.2 Mixed hyperlipidemia I10 Essential (primary) hypertension E11.8 Type 2 diabetes mellitus with unspecified complications 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 Z13.31 Encounter for screening for depression Assessments Date Code Description Provider 09/23/2018 G89.21 Chronic pain due to trauma Duncan, Kaiden, DO, MPH 09/23/2018 M54.2 Cervicalgia Duncan, Kaiden, DO, MPH 09/23/2018 M54.5 Low back pain Duncan, Kaiden, DO, MPH 09/23/2018 R53.83 Other fatigue Duncan, Kaiden, DO, MPH 09/23/2018 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 Duncan, Kaiden , DO, MPH 08/26/2018 G89.21 Chronic pain due to trauma Duncan, Kaiden, DO, MPH 08/26/2018 M54.2 Cervicalgia Duncan, Kaiden, DO, MPH 08/26/2018 M54.5 Low back pain Duncan, Kaiden, DO, MPH 08/26/2018 Z79.891 [facility] (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 analgesic Duncan, Kaiden , DO, MPH 08/26/2018 R53.83 Other fatigue Duncan, Kaiden, DO, MPH 07/23/2018 G89.21 Chronic pain due to trauma Duncan, Kaiden, DO, MPH 07/23/2018 M54.5 Low back pain Duncan, Kaiden, DO, MPH 07/23/2018 M54.2 Cervicalgia Duncan, Kaiden, DO, MPH 07/23/2018 R53.83 Other fatigue Duncan, Kaiden, DO, MPH 07/23/2018 Z79.891 [facility] (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 analgesic Duncan, Kaiden , DO, MPH 06/11/2018 G89.21 Chronic pain due to trauma Duncan, Kaiden, DO, MPH 06/11/2018 M54.2 Cervicalgia Duncan, Kaiden, DO, MPH 06/11/2018 M54.5 Low back pain Duncan, Kaiden, DO, MPH 06/11/2018 M99.01 Segmental and somatic dysfunction of Duncan, Kaiden, DO, MPH cervical region 06/11/2018 R53.83 Other fatigue Duncan, Kaiden, DO, MPH 06/11/2018 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 Duncan, Kaiden , DO, MPH 06/05/2018 G89.21 Chronic pain due to trauma Duncan, Kaiden, DO, MPH 06/05/2018 M54.5 Low back pain Duncan, Kaiden, DO, MPH 05/16/2018 G89.21 Chronic pain due to trauma Duncan, Kaiden, DO, MPH 05/16/2018 M54.5 Low back pain Duncan, Kaiden, DO, MPH 05/16/2018 M54.2 Cervicalgia Duncan, Kaiden, DO, MPH 05/16/2018 M79.7 Fibromyalgia Duncan, Kaiden, DO, MPH 05/16/2018 M06.89 Other specified rheumatoid arthritis, Duncan, Kaiden, DO, MPH multiple sites 05/16/2018 E11.8 Type 2 diabetes mellitus with unspecified Duncan, Kaiden, DO , MPH complications 05/16/2018 K59.00 Constipation, unspecified Duncan, Kaiden, DO, MPH 05/16/2018 R53.83 Other fatigue Duncan, Kaiden, DO, MPH 05/16/2018 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 Duncan, Kaiden , DO, MPH 04/18/2018 G89.21 Chronic pain due to trauma Kaiden Duncan DO MPH 04/18/2018 M54.5 Low back pain Kaiden Duncan DO MPH 04/18/2018 M54.2 Cervicalgia Kaiden Duncan DO MPH 04/18/2018 E11.9 Type 2 diabetes mellitus without Kaiden Duncan DO MPH complications 04/18/2018 E78.2 Mixed hyperlipidemia Kaiden Duncan DO MPH 04/18/2018 I10 Essential (primary) hypertension Kaiden Duncan DO MPH 04/18/2018 E11.8 Type 2 diabetes mellitus with unspecified Kaiden Duncan DO MPH complications 04/18/2018 Z79.891 [facility] (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 analgesic Kaiden Duncan DO, MPH 04/18/2018 Z13.31 Encounter for screening for depression Kaiden Duncan DO MPH Plan of Treatment Future Appointment(s):10/25/2018 2:45 pm - Kaiden Duncan DO MPH at Main Office as Of 03/22/1407 - Kaiden Duncan DO MPHG89.21 Chronic pain due to traumaComments:Chronic. Symptoms and complaints discussed and reviewed today. No significant changes in physical findings. Continue current medical pain management.M54.2 CervicalgiaComments:Chronic. Symptoms and complaints discussed and reviewed today. [...] injection-B12 document for lot number and expiration date.)Z79.891 [facility] (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 analgesicNew Labs: Urine Drug Screen, Ordered: 09/23/18Comments:Urine drug screen sample taken today to monitor opiate use and to monitor use of illicit substances.Will discuss results at next appointment.The following tests were ordered:6 AM, AMPH , JIL, IGGY, BUP, CARIS, COCM, COT, ETG, FENT, MCSHSG, OPI, OXY, PCP, TAPEN, XTSY, ZOLP. A urine drug test (UDT) was ordered for [...] controlled substances and is considered standard of care.AllComments:Continue current medical pain management; injection therapy, osteopathic manipulation, PT / modalities, and consults as needed to manage chronic pain.Non - opioid pain management discussed and optionsdiscussed.Side effects discussed; anticipatory guidance given. Patient clearly understand and agree with all medical treatments and suggestions. 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 Importance of regular nutrition throughout the day discussed.Activity as toleratedContinue with PCP Functional Status Description No Information Available Mental Status Description No Information Available Referrals Description No Information Available
[2018-10-23] MEDS ORDERED: NS 0.9% 1000 ML** 1,000 ML IV ONE (11:19)
[2018-10-23] MEDS ORDERED: Ondansetron INJ* 2 MG/ML VIAL IV ONE (11:19)
--- NOTE | 2018-10-23 11:22 | ED ---
Headache - HPI Summary HPI Summary: The patient is a 68 y/o F presenting to [facility] accompanied by friend with a chief complaint of a headache accompanied by nausea and vomiting over the last 2 -3 days. She reports that she is concerned that she is experiencing detox symptoms because she has been unable to take her pain medications (8mg Dilaudid every 4 hours) since prior to the onset of her current presentation. She states that her emesis has a bile-like appearance, and the headache is described as horrible. She additionally c/o diffuse pain all over with generalized weakness that is also chronic secondary to an undiagnosed autoimmune disease and doesn't seem particularly worse than usual. She denies any diarrhea. Her current pain is rated 9/10 in severity. PMHx: DM, HLD, HTN (Atenolol), asthma, diverticulosis , GERD, acute renal failure, headaches, migraines, multiple sclerosis, fibromyalgia, hepatitis. Former smoker, no EtOH, no substance use. Medications reviewed. Allergies noted. - History Of Current Complaint Chief Complaint: EDHeadache Stated Complaint: GENERAL ILLNESS PER EMS Time Seen by Provider: 10/23/18 09:58 Hx Obtained From: Patient Onset/Duration: Gradual Onset, Started days ago - 2-3, Still Present Initially Headache Was: Mild Currently Pain Is: Current Pain Scale(0-10)= - 9 Timing: Days Character: Migraine Location of Headache: Diffuse Aggravating Factor: Other - unable to take pain medications Allevating Factors: Nothing Associated Signs And Symptoms: Nausea, Vomiting, Other (Noted In Comments) - Positive: diffuse pain, generalized weakness. Negative: fever, diarrhea. - Allergies/Home Medications Allergies/Adverse Reactions: Allergies Allergy/AdvReac Type Severity Reaction Status Date / Time methylparaben Allergy Intermediate Pain Verified 08/21/18 13:52 morphine Allergy Intermediate Hallucinati Verified 08/21/18 13:52 ons tizanidine Allergy Intermediate Swelling Verified 08/21/18 13:52 Of Face,Lips,& Throat Tricyclic Compounds Allergy Intermediate Altered Verified 08/21/18 13:52 Mental Status hydromorphone Allergy Mild See Comment Verified 08/21/18 13:52 itraconazole Allergy Mild Rash Verified 08/21/18 13:52 lanolin Allergy Mild Rash Verified 08/21/18 13:52 milnacipran Allergy Mild Rash And Verified 08/21/18 13:52 Itching mometasone furoate Allergy Mild Headache Verified 08/21/18 13:52 naloxone Allergy Mild Headache Verified 08/21/18 13:52 ondansetron Allergy Mild Headache Verified 08/21/18 13:52 oxycodone Allergy Mild Palpitation Verified 08/21/18 13:52 s oxymorphone Allergy Mild Palpitation Verified 08/21/18 13:52 s Penicillins Allergy Mild Rash Verified 08/21/18 13:52 pentazocine Allergy Mild Palpitation Verified 08/21/18 13:52 s propoxyphene Allergy Mild Rash Verified 08/21/18 13:52 sulfasalazine Allergy Mild Rash Verified 08/21/18 13:52 talc Allergy Mild Rash Verified 08/21/18 13:52 tramadol Allergy Mild Muscle Ache Verified 08/21/18 13:52 trazodone Allergy Mild Insomnia Verified 08/21/18 13:52 Adhesive Tape Allergy Unknown Unknown Verified 08/21/18 13:52 Reaction Details alprazolam Allergy Unknown Unknown Verified 08/21/18 13:52 Reaction Details aspirin Allergy Unknown Unknown Verified 08/21/18 13:52 Reaction Details cefaclor Allergy Unknown Unknown Verified 08/21/18 13:52 Reaction Details clarithromycin Allergy Unknown Unknown Verified 08/21/18 13:52 Reaction Details codeine Allergy Unknown Unknown Verified 08/21/18 13:52 Reaction Details diazepam Allergy Unknown Unknown Verified 08/21/18 13:52 Reaction Details diphenhydramine Allergy Unknown Unknown Verified 08/21/18 13:52 Reaction Details doxycycline Allergy Unknown Unknown Verified 08/21/18 13:52 Reaction Details duloxetine Allergy Unknown Unknown Verified 08/21/18 13:52 Reaction Details fentanyl Allergy Unknown See Comment Verified 08/21/18 13:52 fluoxetine Allergy Unknown Unknown Verified 08/21/18 13:52 Reaction Details gabapentin Allergy Unknown See Comment Verified 08/21/18 13:52 hydroxychloroquine Allergy Unknown Unknown Verified 08/21/18 13:52 Reaction Details paroxetine Allergy Unknown Unknown Verified 08/21/18 13:52 Reaction Details adhesive Allergy Blisters Verified 08/21/18 13:52 apple Allergy Anaphylatic Verified 08/21/18 13:52 Shock black pepper Allergy Hives/Diff. Verified 08/21/18 13:52 Breathing/I tching Bleach (Sodium Hypochlorite) Allergy Unknown Verified 08/21/18 13:52 Reaction Details capsaicin Allergy Unknown Verified 08/21/18 13:52 Reaction Details cigarette smoke Allergy Difficulty Verified 08/21/18 13:52 Breathing Corticosteroids Allergy Unknown Verified 08/21/18 13:52 (Glucocorticoids) Reaction Details melon Allergy Anaphylatic Verified 08/21/18 13:52 Shock mupirocin Allergy Unknown Verified 08/21/18 13:52 Reaction Details NSAIDS (Non-Steroidal Allergy Unknown Verified 08/21/18 13:52 Anti-Inflamma Reaction Details onion Allergy Hives/Diff. Verified 08/21/18 13:52 Breathing/I tching pepper (genus Capsicum) Allergy Unknown Verified 08/21/18 13:52 Reaction Details tapentadol [From Nucynta] Allergy Unknown Verified 08/21/18 13:52 Reaction Details lettuce AdvReac Stomach Verified 08/21/18 13:52 Cramps VINEGAR Allergy Intermediate TROUBLE Uncoded 08/21/18 13:52 BREATHING ENVRIONMENTAL Allergy Mild Sneezing Uncoded 08/21/18 13:52 BANDAIDS AdvReac Mild Blisters Uncoded 08/21/18 13:52 Home Medications: Home Medications Al Hydrox/Mg Hydrox/Anders BULK* [Mylanta - BULK BOT*] 1 karishma PO Q4HR PRN 10/23/18 [History Confirmed 10/23/18] Ascorbate Calcium/Bioflavonoid [Ysabel-C 500 mg Tablet] 1 each PO BID WITH MEALS 10/23/18 [History Confirmed 10/23/18] Brimonidine Tartrate [Mirvaso] 1 applic TOPICAL DAILY PRN 10/23/18 [History Confirmed 10/23/18] Calcium Carbonate CHEW TAB* [Tums*] 500 mg PO BID PRN 10/23/18 [History Confirmed 10/23/18] Calcium Carbonate/Simethicone [Maalox Advanced Tab Chew] 1 each PO Q4HR PRN 06/07 [History Confirmed 10/23/18] Empaglifozin (NF) [Jardiance (Nf)] 10 mg PO DAILY 10/23/18 [History Confirmed ] Insulin ASPART (NF) [Novolog (NF)] 15 unit SC QPM 10/23/18 [History Confirmed ] Insulin ASPART (NF) [Novolog (NF)] 20 unit SC 1300 10/23/18 [History Confirmed 10/23/18] Insulin Degludec/Liraglutide [Xultophy 100/3.6 100-3.6 Unit-mg/ml] 50 units SC BEDTIME 10/23/18 [History Confirmed 10/23/18] Magnesium CITRATE* [Citrate of Magnesia*] 6 ml PO BID 10/23/18 [History Confirmed 10/23/18] PMH/Surg Hx/FS Hx/Imm Hx Endocrine/Hematology History: Reports: Hx Diabetes, Autoimmune Disease - unknown dx Denies: Hx Systemic Lupus Erythematosus, Hx Thyroid Disease - But has thyroid tumor that needs annual check, Hx Anemia Cardiovascular History: Reports: Hx Hypercholesterolemia, Hx Hypertension, Other Cardiovascular Problems/Disorders - 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 Denies: Hx Congestive Heart Failure - superior vena cava syndrome, Hx Pacemaker/ICD Respiratory History: Reports: Hx Asthma GI History: Reports: Hx Diverticulosis, Hx Gastroesophageal Reflux Disease, Hx Hiatal Hernia, Other GI Disorders - HX DIVERTICULOSIS Denies: Hx Jaundice History: Reports: Hx Acute Renal Failure Denies: Hx Dialysis, Hx Renal Disease Musculoskeletal History: Reports: Hx Arthritis - OSTEO, Hx Back Problems - degenerative disc disease, Hx Osteoporosis, Hx Tendonitis - WRISTS AND ELBOWS, Other Musculoskeletal History - DEGEN DISC DISEASE; chronic pain Denies: Hx Rheumatoid Arthritis - myeloradicular neurapathy Sensory History: Reports: Hx Cataracts - BILAT, Hx Contacts or Glasses Denies: Hx Hearing Aid Opthamlomology History: Reports: Hx Cataracts - BILAT, Hx Contacts or Glasses Neurological History: Reports: Hx Headaches, Hx Migraine - 2-3 TIMES PER WEEK- TREATS WITH IMITREX, Other Neuro Impairments/Disorders - multiple sclerosis, FIBROMYALGIA, MYELORADICULAR NEUROPATHY Denies: Hx Seizures Psychiatric History: Reports: Hx Depression Denies: Hx Panic Disorder - Cancer History Hx Chemotherapy: No Hx Radiation Therapy: No - Surgical History Surgery Procedure, Year, and Place: [place] [facility] [place] [facility] [place]OW[place], COLOSTOMY 1993. [place] WITH [place]AL [place] [facility] [place] [facility] [place] LAP CRISTIAN WITH INFUSAPORT REMOVAL [place] [facility] [place] APPY REMOVAL OF RIGHT OVARIAN CYST AND RESECTION 1968. T&A. DEVIATED SEPTUM REPAIR. SINUS [place] [facility] [place]. 2015- LEFT EYE CATARACT REMOVED Hx Anesthesia Reactions: No - Immunization History Date of Influenza Vaccine: hsa not received Infectious Disease History: No Infectious Disease History: Reports: Hx Hepatitis - "medical"- only while taking a medication-states no longer takes, name unkn Denies: Traveled Outside the [place] in Last 30 Days - Family History Known Family History: Positive: Other - Breast CA; anesthesia reaction Negative: Cardiac Disease - Social History Alcohol Use: None Hx Substance Use: No Substance Use Type: Reports: None Hx Tobacco Use: Yes Smoking Status (MU): Former Smoker Type: Cigarettes Amount Used/How Often: 4 PPD X 15 YEARS Length of Time of Smoking/Using Tobacco: 20 YRS Have You Smoked in the Last Year: No Review of Systems Positive: Other - generalized pain and weakness. Negative: Fever Positive: Vomiting, Nausea. Negative: Diarrhea Positive: Headache - diffuse All Other Systems Reviewed And Are Negative: Yes Physical Exam - Summary Physical Exam Summary: Constitutional: Well-developed, Well-nourished, Alert. (+) Distressed, Actively wretching in room Skin: Warm, Dry HENT: Normocephalic; Atraumatic Eyes: Conjunctiva normal Neck: Musculoskeletal ROM normal neck. (-) JVD, (-) Stridor, (-) Tracheal deviation Cardio: Rhythm regular, rate normal, Heart sounds normal; Intact distal pulses; The pedal pulses are 2+ and symmetric. Radial pulses are 2+ and symmetric. (-) Murmur Pulmonary/Chest wall: Effort normal. (-) Respiratory distress, (-) Wheezes, (-) Rales Abd: Soft, (-) tenderness, (-) Distension, (-) Guarding, (-) Rebound Musculoskeletal: (-) Edema Lymph: (-) Cervical adenopathy Neuro: Alert, Oriented x3, Strength normal, Cranial nerves II-XII are grossly intact. (-) Dysmetria, (-) Nystagmus, (-) Ataxia by finger to nose testing, (-) Sensory deficit. GCS: 15. Psych: Mood and affect Normal Triage Information Reviewed: Yes Vital Signs On Initial Exam: Initial Vitals Temp Pulse Resp BP Pulse Ox 98.2 F 83 17 154/108 93 10/23/18 09:43 10/23/18 09:43 10/23/18 09:43 10/23/18 09:43 10/23/18 09:43 Vital Signs Reviewed: Yes - [place] Coma Scale Best Eye Response: 4 - Spontaneous Best Motor Response: 6 - Obeys Commands Best Verbal Response: 5 - Oriented Coma Scale Total: 15 Diagnostics - Vital Signs Vital Signs Temp Pulse Resp BP Pulse Ox 10/23/18 09:43 98.2 F 83 17 154/108 93 - Laboratory Result Diagrams: 10/23/18 11:26 10/23/18 11:26 Lab Statement: Any lab studies that have been ordered have been reviewed, and results considered in the medical decision making process. - CT Vipin CT CT Interpretation Completed By: Radiologist Summary of CT Findings: Impression: No acute intracranial pathology. Stable arachnoid cyst. ED physician has reviewed this radiology report. - EKG 1211 Cardiac Rate: NL - 78 bpm EKG Rhythm: Sinus Rhythm Summary of EKG Findings: An EKG at 1211 reveals NSR at 78 bpm. No STEMI. Re-Evaluation - Re-Evaluation First Eval Re-Evaluation Time: 12:16 Comment: Pt is having IV placed and being given pain medications at this time. We will re-evaluate in 30 minutes. Second Eval Re-Evaluation Time: 12:51 Change: Improved Comment: Pt's pain has slightly improved. She feels unsafe going home with current symptoms. We will consult the hospitalist for possible admission secondary to dehydration and intractable vomting. Headache Course/Dx - Course Course Of Treatment: Patient is here with headache and vomiting. Patient vomiting for the past 3 days with no other symptoms outside of her headache. Patient had negative CT head for any acute intrarenal 100 mildly. Patient was given a liter of fluids, 2 mg of IV Dilaudid, Motrin and Zofran with mild improvement in her symptoms. Patient had blood performed which was grossly unremarkable outside of evidence of dehydration. Patient is likely suffering from a migraine causing her to vomit and going to detox from not using her opiates. Patient is admitted for intractable vomiting. - Diagnoses Provider Diagnoses: Dehydration, Intractable vomiting - Physician Notifications Discussed Care Of Patient With: Jolene Low - hospitalist Time Discussed With Above Provider: 13:05 Instructed by Provider To: Other - Dr. Low accepts the patient for admission. Discharge ED - Sign-Out/Discharge Documenting (check all that apply): Patient Departure - Patient accepted for admission by Dr. Low. Patient Received Moderate/Deep Sedation with Procedure: No - Discharge Plan Condition: Stable Disposition: ADMITTED TO [facility] - Billing Disposition and Condition Condition: STABLE Disposition: Admitted to [facility] - Attestation Statements Document Initiated by Bishop: Yes Documenting Scribe: Brynn Willingham Provider For Whom Bishop is Documenting (Include Credential): Dr. Archie Chino MD Scribe Attestation: Brynn Starks scribed for Dr. Archie Chino MD on 10/23/18 at 1619. Scribe Documentation Reviewed: Yes Provider Attestation: The documentation as recorded by the Brynn mayer accurately reflects the service I personally performed and the decisions made by me, Dr. Archie Chino MD Status of Scribe Document: Viewed
[2018-10-23 11:39] LABS: ABS Lymphocytes 1.8 10^3/ul (1.0-4.8); ABS Monocytes 0.4 10^3/ul (0-0.8); ABS Neutrophils 6.4 10^3/ul (1.5-7.7); Eosinophil % 0.2 %; Hematocrit 51 % (35-47); Hemoglobin 17.5 g/dL (12.0-16.0); Lymphocyte % 20.7 %; Mean Corpuscular HGB Conc 34 g/dL (31-36); Mean Corpuscular Hemoglobin 30 pg (27-31); Mean Corpuscular Volume 86 fL (80-97); Mean Platelet Volume 7.4 fL (7.4-10.4); Platelet Count 223 10^3/uL (150-450); Red Blood Count 5.94 10^6 /uL (3.70-4.87); Red Cell Distribution Width 24 % (10-15); White Blood Count 8.6 10^3/uL (3.5-10.8)
[2018-10-23 11:55] LABS: Albumin 4.1 g/dL (3.2-5.2); Albumin/Globulin Ratio 1.2 (1-3); Calcium 10.1 mg/dL (8.6-10.3); EGFR African American 83.4 (>60); EGFR Non-African American 68.9 (>60); Globulin 3.3 g/dL (2-4); Potassium 3.5 mmol/L (3.5-5.0); Total Bilirubin 0.6 mg/dL (0.2-1.0); Total Protein 7.4 g/dL (6.4-8.9)
[2018-10-23] MEDS ORDERED: HYDROmorphone INJ* 0.5 MG/0.5 ML SYRINGE IV ONE (12:19)
[2018-10-23 13:34] LABS: C Reactive Protein 4.39 mg/L (<8.01)
[2018-10-23 13:47] LABS: TSH (Thyroid Stimulating Horm) 0.46 mcIU/mL (0.34-5.60)
[2018-10-23] MEDS ORDERED: Magnesium Hydroxide LIQ* 30 ML UDC PO PRN (14:32)
[2018-10-23 15:53] LABS: Urine Appearance Cloudy; Urine Bacteria 1+ (Absent); Urine Bilirubin Negative (Negative); Urine Blood Negative (Negative); Urine Color Amber; Urine Glucose 3+(>=500 mg/dL) (Negative); Urine Ketones Trace (Negative); Urine Nitrite Negative (Negative); Urine Protein Negative (Negative); Urine Red Blood Cell Trace(0-2/hpf) (Absent); Urine Specific Gravity 1.016 (1.010-1.030); Urine Squamous Epithelial Cell Present (Absent); Urine Urobilinogen Negative (Negative); Urine White Blood Cell 3+(>20/hpf) (Absent)
[2018-10-23] MEDS ORDERED: Dextrose 50% VIAL 50 ml IV PUSH PRN (16:59)
[2018-10-23] MEDS: NS 0.9% 1000 ML** 1,000 ML IV SCH (17:00)
[2018-10-23] MEDS: Enoxaparin(*) 40 MG/0.4 ML SYR SUBCUT SCH (17:00)
[2018-10-23] MEDS: HYDROmorphone INJ1* 1 MG/ML SYRINGE IV SLOW PU PRN ×2 (17:36→21:22)
--- NOTE | 2018-10-23 19:06 | HP ---
CC: Dr. Anila Saul HISTORY AND PHYSICAL: DATE OF ADMISSION: 10/23/18 PRIMARY CARE PHYSICIAN: Anila Saul MD HEALTHCARE PROXY: Her friend, Dottie Pleitez. CODE STATUS: Full. CHIEF COMPLAINT: Nausea and vomiting for 3 days. HISTORY OF PRESENT ILLNESS: Ms. Brown is a 68-year-old woman with diabetes, type 2, on insulin; fibromyalgia; polyarthropathy; and history of demyelinating disease, on methotrexate and opioid therapy; who is presenting today after 3 days of nausea and vomiting. She reports that she was in her usual state of health until she developed migraine approximately 3 days ago that was accompanied by nausea with vomiting. She reports the vomitus is bilious and does not have black flecks or blood. As she was unable to keep down her medications during this headache. She was missing doses of her Dilaudid for which she receives 8 mg orally every 3 hours as needed for pain. She denies recent sick contacts or eating spoiled food or new foods. She thinks that she began to withdraw from opioid as she was unable to take her home doses of Dilaudid and states that her pain began to get worse and worse including her chronic arm and leg pain. Of note, she does deny abdominal pain or dysuria. She also denies fevers or chills. Eventually, she presented to the emergency room for persistent nausea, vomiting, dehydration, and inability to take her oral medications. The patient also denied constipation or diarrhea. She states that she is chronically constipated from opioids, but takes laxatives and has approximately 2 bowel movements per day. Otherwise, a complete 10-point review of systems was performed and negative. In the emergency room, the patient was thought to be dehydrated and given 1 L of normal saline. She was also given IV Dilaudid with good relief. The head CT showed no acute finding. She was also given Zofran with significant improvement in her nausea. The patient had declined abdominal CT scan and she reports she has had this many times before, she does not think it would be useful and she is denying abdominal symptoms except for nausea at this time. Of note, the patient had an admission in March of this year. At that time, she was experiencing right lower quadrant abdominal pain, but no pathology was noted on CT scan. She was treated with ciprofloxacin and metronidazole for possible diverticulitis. In April of last year, she was admitted for persistent nausea and vomiting and was found to have a diabetic hyperosmolar hyperglycemic syndrome. Also in November 2017, she was admitted for nausea, vomiting, and diarrhea in the setting of a urinary tract infection. For each of this prior admission, she was noted to have an elevated lactate level. PAST MEDICAL HISTORY: 1. Diabetes, on insulin. 2. History of demyelinating disease with peripheral neuropathy, on methotrexate. 3. Fibromyalgia. 4. Migraines. 5. Heart failure, preserved ejection fraction. 6. SVC syndrome. 7. Reflux. 8. Osteoporosis. 9. Anemia. 10. Diverticulosis. 11. Degenerative disk disease complicated by chronic pain. 12. Hypertension. 13. History of laparoscopic cholecystectomy. 14. History of exploratory laparotomy with colostomy and reversal in the past. 15. History of hysterectomy. HOME MEDICATIONS: 1. Insulin degludec/liraglutide 50 units subcu at bedtime. 2. Insulin aspart 20 units in the afternoon. 3. Insulin aspart 15 units in the evening. 4. Methotrexate 0.5 mL subcu on . 5. Metformin 1000 mg twice a day. 6. Linaclotide 290 mcg daily. 7. Levocetirizine 5 mg daily. 8. Empagliflozin 10 mg daily. 9. Sumatriptan 100 mg daily as needed for migraine. 10. Floradix Iron and Herb 10 mg twice a day with meals. 11. Estradiol 1 mg daily. 12. Hydromorphone 8 mg every 3 hours as needed for pain. 13. Dexlansoprazole 60 mg daily. 14. Bumetanide 2 mg twice a day. 15. Baclofen 20 mg 4 times a day as needed. 16. Atorvastatin 10 mg nightly. 17. Atenolol 12.5 mg daily. Of note, the patient is on multiple supplements and [id number] medications as well as topicals. These have been reviewed in the EMR. DRUG ALLERGIES: Multiple drug allergies noted in the EMR. Please see allergy tab. FAMILY HISTORY: Mother had CHF. Father had stomach cancer. SOCIAL HISTORY: The patient lives alone and has a home health aide 6 days a week. 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 She quit tobacco at the age of 33. She denies alcohol or other drug use. PHYSICAL EXAMINATION GENERAL: She is an elderly woman who appears her stated age, in no acute distress, but does appear mildly uncomfortable, she is still pleasant, alert, and interactive. VITAL SIGNS: Afebrile, heart rate 70s, blood pressure 148/82, respiratory rate 17, oxygen saturation 92% on room air. HEENT: Dry mucous membranes. NECK: No JVD. Supple. LUNGS: Clear to auscultation bilaterally. HEART: Regular rate and rhythm. No murmurs, gallops, or rubs. ABDOMEN: Soft, nontender, nondistended. No guarding or rebound. Negative Cason sign. BACK: No CVA tenderness. EXTREMITIES: Warm and well perfused. No evidence of edema. NEURO: A and O x3. DIAGNOSTIC STUDIES/LAB DATA: CBC significant for hemoglobin elevated at 17.5 without leukocytosis. BMP notable for mildly increased BUN to creatinine ratio and a glucose of 155. LFTs, B12, and TSH were normal. Lactate normal. UA with trace ketones and leukocyte esterase with 3+ wbc and 1+ bacteria. Brain CT was without acute intracranial pathology and with a stable arachnoid cyst. EKG was with normal sinus rhythm of a rate 78, QTc 470. ASSESSMENT AND PLAN: Ms. Brown is a 68-year-old woman with multiple medical problems including diabetes, on insulin; unknown demyelinating disease and peripheral neuropathy, on methotrexate; reflux; degenerative disk disease and chronic pain, on high- dose opioids; who is presenting with 3 days of nausea and vomiting following a migraine causing her to miss all of her doses of opioids and now resulting in likely opioid withdrawal and chronic pain. She was found without significant lab abnormalities except for likely hemoconcentration on CBC and possible infected urinalysis, although the patient is currently denying symptoms and she will be admitted for IV hydration with IV pain control. 1. Nausea and vomiting. The patient reports this started with her migraine. She will be continued on IV Zofran as needed with IV Dilaudid for pain control while she is unable to tolerate her oral Dilaudid doses. She will be maintained on maintenance fluids. She is currently refusing an abdomen and pelvis CT as she reports she has had this before and she does not think that it will help with her diagnostic workup, although she understands that this may be necessary if she is not improving. She will be ordered for a clear liquid diet. Blood cultures have been ordered. Of note, the patient had a similar presentation in the past when she had a urinary tract infection; however, given no symptoms of dysuria at this time, we will hold off on antibiotics until urine cultures result as the patient has no other infectious symptoms including fever, leukocytosis, or lactate. Unclear if polypharmacy is contributing to the patient's symptoms as she is on a significant number of medications including prescription medications, controlled substances, [id number], and supplements. It seems she has had an issue with medication adherence in the past and some of her medications may also interact with each other. Given that, we will only order what is essential for this hospitalization and the patient's chronic medical problems. 2. Hypertension. Continue the patient's home atenolol 12.5 mg daily as her blood pressure is mildly elevated at this time. 3. Chronic pain. We will continue the patient's opioids as above through the IV, also can continue baclofen 20 mg orally every 6 hours as needed for muscle spasm. 4. Gastroesophageal reflux disease. Continue home pantoprazole 40 mg daily. 5. History of constipation. This is likely from chronic opioid use. We will order the patient for bowel regimen when she is able to tolerate p.o. If she does not have a bowel movement in the next day or 2, should consider enema. 6. Seasonal allergies. Continue cetirizine. 7. DVT prophylaxis. Initiate Lovenox subcu daily. 8. Code status. Full code. TIME SPENT: Approximately 60 minutes was spent on admission of this patient, more than half of which was spent at bedside for interview and exam. [id number]/[facility] #: [id number] TIKI
[2018-10-23] MEDS: Insulin LISPRO* 1 UNITS UNIT SUBCUT SCH (21:02)
[2018-10-23] MEDS: Atorvastatin* 10 MG TAB PO SCH (21:03)
[2018-10-23] MEDS: Senna TAB 8.6 mg* TAB PO SCH (21:04)
[2018-10-24] MEDS: HYDROmorphone INJ1* 1 MG/ML SYRINGE IV SLOW PU PRN ×4 (04:31→15:48)
[2018-10-24] MEDS: NS 0.9% 1000 ML** 1,000 ML IV SCH ×2 (04:31→15:47)
[2018-10-24] MEDS: Insulin LISPRO* 1 UNITS UNIT SUBCUT SCH ×4 (07:43→20:25)
[2018-10-24] MEDS: Acetaminophen TAB* 325 MG PO PRN (08:25)
[2018-10-24] MEDS: Pantoprazole TAB * 40 MG TAB PO SCH (08:26)
[2018-10-24] MEDS: Atenolol TAB* 25 MG PO SCH (08:26)
[2018-10-24] MEDS: CMCS:Estradiol TAB(NF) 1 MG TAB PO SCH (08:27)
[2018-10-24] MEDS: Senna TAB 8.6 mg* TAB PO SCH ×2 (08:27→20:46)
[2018-10-24] MEDS ORDERED: SUMAtriptan SQ* 6 MG/0.5 ML VIAL SUBCUT ONE ×2 (08:59→19:33)
[2018-10-24 11:59] LABS: Hematocrit 46 % (35-47); Hemoglobin 15.8 g/dL (12.0-16.0); Mean Corpuscular HGB Conc 34 g/dL (31-36); Mean Corpuscular Hemoglobin 30 pg (27-31); Mean Corpuscular Volume 87 fL (80-97); Mean Platelet Volume 7.5 fL (7.4-10.4); Platelet Count 200 10^3/uL (150-450); Red Blood Count 5.32 10^6 /uL (3.70-4.87); Red Cell Distribution Width 24 % (10-15); White Blood Count 9.2 10^3/uL (3.5-10.8)
[2018-10-24 12:06] LABS: ALT 26 U/L (7-52); Albumin 3.6 g/dL (3.2-5.2); Albumin/Globulin Ratio 1.4 (1-3); Alkaline Phosphatase 86 U/L (34-104); BUN/Creatinine Ratio 17.9 (8-20); Blood Urea Nitrogen 14 mg/dL (6-24); CO2 Carbon Dioxide 27 mmol/L (22-32); Calcium 9.1 mg/dL (8.6-10.3); Chloride 102 mmol/L (101-111); EGFR African American 88.3 (>60); Globulin 2.5 g/dL (2-4); Glucose 275 mg/dL (70-100); Magnesium 2.1 mg/dL (1.9-2.7); Sodium 137 mmol/L (135-145); Total Protein 6.1 g/dL (6.4-8.9)
[2018-10-24 12:19] LABS: Anion Gap 8 mmol/L (2-11)
[2018-10-24] MEDS: Enoxaparin(*) 40 MG/0.4 ML SYR SUBCUT SCH (15:34)
[2018-10-24] MEDS: Nitrofurantoin Macrocrystals* 100 MG CAP PO SCH ×2 (17:39→20:46)
[2018-10-24] MEDS: HYDROmorphone TAB* 4 MG PO PRN ×2 (18:46→22:08)
[2018-10-24] MEDS: Cetirizine* 10 MG TAB PO SCH (20:45)
[2018-10-24] MEDS: Atorvastatin* 10 MG TAB PO SCH (20:46)
[2018-10-25] MEDS: NS 0.9% 1000 ML** 1,000 ML IV SCH ×3 (01:05→22:23)
[2018-10-25] MEDS: HYDROmorphone TAB* 4 MG PO PRN ×6 (01:05→20:49)
[2018-10-25] MEDS: Insulin LISPRO* 1 UNITS UNIT SUBCUT SCH ×4 (07:52→21:30)
[2018-10-25] MEDS: Senna TAB 8.6 mg* TAB PO SCH ×2 (07:53→20:48)
[2018-10-25] MEDS: Pantoprazole TAB * 40 MG TAB PO SCH (07:53)
[2018-10-25] MEDS: Atenolol TAB* 25 MG PO SCH (07:54)
[2018-10-25] MEDS: CMCS:Estradiol TAB(NF) 1 MG TAB PO SCH (07:55)
[2018-10-25] MEDS: Nitrofurantoin Macrocrystals* 100 MG CAP PO SCH ×2 (07:55→10:34)
[2018-10-25] MEDS ORDERED: SUMAtriptan SQ* 6 MG/0.5 ML VIAL SUBCUT ONE ×2 (08:31→16:35)
[2018-10-25 10:38] LABS: Ferritin 96.2 ng/mL (11-307)
[2018-10-25] MEDS: Cephalexin CAP* 500 MG PO SCH ×2 (11:17→20:48)
[2018-10-25 12:10] LABS: ABS Eosinophils 0.1 10^3/ul (0-0.6); ABS Lymphocytes 2.2 10^3/ul (1.0-4.8); ABS Monocytes 0.7 10^3/ul (0-0.8); Eosinophil % 0.9 %; Hematocrit 49 % (35-47); Hemoglobin 16.7 g/dL (12.0-16.0); Lymphocyte % 27.7 %; Mean Corpuscular HGB Conc 34 g/dL (31-36); Mean Corpuscular Hemoglobin 29 pg (27-31); Mean Corpuscular Volume 87 fL (80-97); Mean Platelet Volume 7.4 fL (7.4-10.4); Platelet Count 180 10^3/uL (150-450); Red Cell Distribution Width 24 % (10-15); White Blood Count 7.9 10^3/uL (3.5-10.8)
[2018-10-25] MEDS: Ondansetron INJ* 2 MG/ML VIAL IV PRN (13:11)
[2018-10-25] MEDS: Enoxaparin(*) 40 MG/0.4 ML SYR SUBCUT SCH (15:47)
[2018-10-25] MEDS: Cetirizine* 10 MG TAB PO SCH (17:28)
[2018-10-25 17:35] LABS: Albumin 3.6 g/dL (3.2-5.2); Calcium 8.3 mg/dL (8.6-10.3); Total Bilirubin 0.7 mg/dL (0.2-1.0)
[2018-10-25 17:41] LABS: Albumin/Globulin Ratio 1.2 (1-3); BUN/Creatinine Ratio 12.3 (8-20); EGFR Non-African American 90.1 (>60); Globulin 2.9 g/dL (2-4); Phosphorus 2.6 mg/dL (2.5-5.0); Total Protein 6.5 g/dL (6.4-8.9)
[2018-10-25 17:47] LABS: Magnesium 1.9 mg/dL (1.9-2.7)
[2018-10-25] MEDS: Atorvastatin* 10 MG TAB PO SCH (20:48)
[2018-10-26] MEDS: HYDROmorphone TAB* 4 MG PO PRN ×7 (00:34→21:10)
[2018-10-26] MEDS: Senna TAB 8.6 mg* TAB PO SCH ×2 (07:53→20:47)
[2018-10-26] MEDS: Cephalexin CAP* 500 MG PO SCH ×2 (07:55→21:10)
[2018-10-26] MEDS: Atenolol TAB* 25 MG PO SCH (07:56)
[2018-10-26] MEDS: Pantoprazole TAB * 40 MG TAB PO SCH (07:56)
[2018-10-26] MEDS: Acetaminophen TAB* 325 MG PO PRN ×2 (07:56→21:11)
[2018-10-26] MEDS: Baclofen TAB* 20 MG PO PRN ×3 (07:57→15:12)
[2018-10-26] MEDS: Insulin LISPRO* 1 UNITS UNIT SUBCUT SCH ×4 (08:08→21:41)
[2018-10-26] MEDS: CMCS:Estradiol TAB(NF) 1 MG TAB PO SCH (08:08)
[2018-10-26] MEDS ORDERED: SUMAtriptan SQ* 6 MG/0.5 ML VIAL SUBCUT ONE (09:00)
[2018-10-26] MEDS: NS 0.9% 1000 ML** 1,000 ML IV SCH (10:00)
[2018-10-26] MEDS ORDERED: Atenolol TAB* 25 MG PO ONE (11:40)
[2018-10-26] MEDS: Enoxaparin(*) 40 MG/0.4 ML SYR SUBCUT SCH ×2 (12:57→15:18)
[2018-10-26] MEDS: Nitroglycerin TAB 0.4 MG* 0.4 MG TAB PO PRN ×3 (15:35→15:45)
[2018-10-26] MEDS ORDERED: Nitroglycerin TAB 0.4 MG* 0.4 MG TAB ONE (15:37)
[2018-10-26] MEDS ORDERED: Nitroglycerin TAB 0.4 MG* 0.4 MG TAB PO ONE (15:40)
[2018-10-26] MEDS ORDERED: Iodixanol* (CONTRAST) 320 MG/ML 100 ML SDV IV ONE (16:23)
[2018-10-26] MEDS ORDERED: HYDROmorphone INJ1* 1 MG/ML SYRINGE IV SLOW PU ONE (16:24)
[2018-10-26 16:28] LABS: BUN/Creatinine Ratio 7.2 (8-20); Calcium 8.4 mg/dL (8.6-10.3); EGFR African American 82.2 (>60); Potassium 3.4 mmol/L (3.5-5.0)
[2018-10-26 16:58] LABS: ABS Eosinophils 0.4 10^3/ul (0-0.6); ABS Lymphocytes 3.1 10^3/ul (1.0-4.8); ABS Monocytes 1.1 10^3/ul (0-0.8); ABS Neutrophils 4.9 10^3/ul (1.5-7.7); Hematocrit 45 % (35-47); Lymphocyte % 32.6 %; Mean Corpuscular HGB Conc 33 g/dL (31-36); Mean Corpuscular Hemoglobin 29 pg (27-31); Mean Corpuscular Volume 87 fL (80-97); Mean Platelet Volume 7.2 fL (7.4-10.4); Platelet Count 187 10^3/uL (150-450); Red Blood Count 5.15 10^6 /uL (3.70-4.87); Red Cell Distribution Width 24 % (10-15); White Blood Count 9.5 10^3/uL (3.5-10.8)
[2018-10-26] MEDS ORDERED: HYDROmorphone INJ1* 1 MG/ML SYRINGE IV ONE (18:00)
[2018-10-26] MEDS: Cetirizine* 10 MG TAB PO SCH (18:10)
[2018-10-26] MEDS: Enoxaparin(*) 80 MG/0.8 ML SYR SUBCUT SCH (18:10)
--- NOTE | 2018-10-26 18:45 | PN ---
Hospitalist Progress Note Date of Service: 10/26/18 CAT called due to chest pain radiating into back and neck with associated SOB. EKG non-schemic, showed new Afib. Given estrogen therapy and hospitalization, CTA ordered which was negative. Trops trended, initially 0.00. Some response to Nitro with CP. Nitro patch ordered. BB ordered. Exam unremarkable. Transfer to Tele. On Lovenox for Afib and possible ACS. Discussed case with Anila Saul.
[2018-10-26] MEDS: KCL 20 MEQ/100 ML IVPREMIX* 20 MEQ/100 ML BAG IV SCH ×2 (18:53→21:15)
[2018-10-26] MEDS: Nitroglycerin 0.3 MG/HR PATCH* (7.5 MG) TRANSDERM SCH (18:53)
[2018-10-26] MEDS: PTO:IPRATROPIUM BR (NF)0.06% NASAL 1 SPRAY BTL BOTH NARES SCH ×2 (20:19→21:20)
[2018-10-26] MEDS: Ondansetron INJ* 2 MG/ML VIAL IV PRN (21:10)
[2018-10-26] MEDS: Atorvastatin* 10 MG TAB PO SCH (21:11)
[2018-10-26] MEDS: Al Hydrox/Mg Hydrox/Simet LIQ* 30 ML UDC PO PRN (21:15)
[2018-10-27] MEDS: HYDROmorphone TAB* 4 MG PO PRN ×5 (03:45→21:00)
[2018-10-27 06:39] LABS: Hematocrit 43 % (35-47); Hemoglobin 14.5 g/dL (12.0-16.0); Mean Corpuscular HGB Conc 34 g/dL (31-36); Mean Corpuscular Hemoglobin 30 pg (27-31); Mean Corpuscular Volume 87 fL (80-97); Mean Platelet Volume 7.7 fL (7.4-10.4); Platelet Count 169 10^3/uL (150-450); Red Cell Distribution Width 23 % (10-15); White Blood Count 7.2 10^3/uL (3.5-10.8)
[2018-10-27] MEDS: Enoxaparin(*) 80 MG/0.8 ML SYR SUBCUT SCH ×2 (06:45→17:37)
[2018-10-27] MEDS: Nitro Patch/OINT Remove PATCH OFF SCH (06:46)
[2018-10-27 06:53] LABS: BUN/Creatinine Ratio 10.3 (8-20); C Reactive Protein 1.64 mg/L (<8.01); Calcium 8.2 mg/dL (8.6-10.3); EGFR African American 103.5 (>60); EGFR Non-African American 85.5 (>60); Potassium 3.9 mmol/L (3.5-5.0)
[2018-10-27 07:03] LABS: ABS Eosinophils 0.4 10^3/ul (0-0.6); ABS Monocytes 0.8 10^3/ul (0-0.8); ABS Neutrophils 2.9 10^3/ul (1.5-7.7); Eosinophil % 6.1 %; Lymphocyte % 41.7 %
[2018-10-27] MEDS: Insulin LISPRO* 1 UNITS UNIT SUBCUT SCH ×4 (09:17→21:00)
[2018-10-27] MEDS: Cephalexin CAP* 500 MG PO SCH ×2 (09:18→21:00)
[2018-10-27] MEDS: PTO:IPRATROPIUM BR (NF)0.06% NASAL 1 SPRAY BTL BOTH NARES SCH ×4 (09:18→21:00)
[2018-10-27] MEDS: Pantoprazole TAB * 40 MG TAB PO SCH (09:18)
[2018-10-27] MEDS: Senna TAB 8.6 mg* TAB PO SCH ×2 (09:18→21:00)
[2018-10-27] MEDS: Atenolol TAB* 25 MG PO SCH (09:19)
[2018-10-27] MEDS ORDERED: Insulin GLARGINE(*) 1 UNITS UNIT SUBCUT ONE (12:10)
[2018-10-27] MEDS: Baclofen TAB* 20 MG PO PRN ×2 (12:55→21:00)
[2018-10-27] MEDS: Potassium Chlor TAB* 10 MEQ TAB.ER PO SCH ×2 (12:55→21:00)
[2018-10-27] MEDS: CMCS:Estradiol TAB(NF) 1 MG TAB PO SCH (12:56)
[2018-10-27] MEDS: Cetirizine* 10 MG TAB PO SCH (17:37)
[2018-10-27] MEDS: Al Hydrox/Mg Hydrox/Simet LIQ* 30 ML UDC PO PRN (21:00)
[2018-10-27] MEDS: Nitroglycerin 0.3 MG/HR PATCH* (7.5 MG) TRANSDERM SCH (21:00)
[2018-10-27] MEDS: Acetaminophen TAB* 325 MG PO PRN (21:00)
[2018-10-27] MEDS: diPHENhydraMINE PO* 50 MG PO PRN (21:00)
[2018-10-27] MEDS: Atorvastatin* 10 MG TAB PO SCH (21:00)
[2018-10-28] MEDS: HYDROmorphone TAB* 4 MG PO PRN ×4 (05:34→23:55)
[2018-10-28] MEDS: Enoxaparin(*) 80 MG/0.8 ML SYR SUBCUT SCH ×2 (05:35→17:29)
[2018-10-28] MEDS: Acetaminophen TAB* 325 MG PO PRN (05:35)
[2018-10-28] MEDS: Nitro Patch/OINT Remove PATCH OFF SCH (05:38)
[2018-10-28 07:01] LABS: ABS Eosinophils 0.4 10^3/ul (0-0.6); ABS Lymphocytes 2.7 10^3/ul (1.0-4.8); ABS Monocytes 0.7 10^3/ul (0-0.8); Eosinophil % 5.4 %; Hematocrit 42 % (35-47); Hemoglobin 14.3 g/dL (12.0-16.0); Lymphocyte % 39.7 %; Mean Corpuscular HGB Conc 34 g/dL (31-36); Mean Corpuscular Hemoglobin 30 pg (27-31); Mean Corpuscular Volume 87 fL (80-97); Mean Platelet Volume 7.8 fL (7.4-10.4); Nucleated Red Blood Cells % 0.1; Platelet Count 168 10^3/uL (150-450); Red Blood Count 4.81 10^6 /uL (3.70-4.87); Red Cell Distribution Width 24 % (10-15); White Blood Count 6.7 10^3/uL (3.5-10.8)
[2018-10-28 07:02] LABS: BUN/Creatinine Ratio 11.8 (8-20); Calcium 8.7 mg/dL (8.6-10.3); EGFR Non-African American 66.1 (>60); Phosphorus 2.2 mg/dL (2.5-5.0); Potassium 4.4 mmol/L (3.5-5.0)
[2018-10-28] MEDS: Insulin LISPRO* 1 UNITS UNIT SUBCUT SCH ×4 (07:58→21:05)
[2018-10-28] MEDS: Potassium Chlor TAB* 10 MEQ TAB.ER PO SCH ×2 (08:56→21:04)
[2018-10-28] MEDS: Pantoprazole TAB * 40 MG TAB PO SCH (08:56)
[2018-10-28] MEDS: Senna TAB 8.6 mg* TAB PO SCH ×2 (08:56→21:04)
[2018-10-28] MEDS: Cephalexin CAP* 500 MG PO SCH ×2 (08:57→21:04)
[2018-10-28] MEDS: CMCS:Estradiol TAB(NF) 1 MG TAB PO SCH (09:00)
[2018-10-28] MEDS ORDERED: Regadenoson* 0.4 MG/5 ML SYRINGE ONE (11:35)
[2018-10-28] MEDS: PTO:IPRATROPIUM BR (NF)0.06% NASAL 1 SPRAY BTL BOTH NARES SCH ×4 (13:57→21:08)
[2018-10-28] MEDS: Atenolol TAB* 25 MG PO SCH (14:03)
[2018-10-28] MEDS: [UNRECOGNIZED DRUG - OTHER] SUBCUT SCH (14:04)
[2018-10-28] MEDS: INSULIN DEGLUDEC SUBCUT SCH (14:04)
[2018-10-28] MEDS: Baclofen TAB* 20 MG PO PRN ×2 (14:11→21:04)
--- NOTE | 2018-10-28 16:14 | ECHO ---
*[facility]* [place] [address] Fax #: [phone] Transthoracic Echocardiogram Patient: Keila Brown : 1950 Study Date: 10/28/2018 Age: 68 Gender: F HR: 54 bpm Height: 64 in /162.6 cm BSA: 1.78 m^2 Weight: 159.7 lb /72.6 kg BMI: 27.5 kg/m^2 *Field Service Rep: * Sonam Peace [facility] *Referring Physician: * Micheal Saul *Reading Physician: * Ubaldo Castellano MD Indications: Atrial Fibrillation. History: Asthma. Superior vena cava Syndrome. Risk factors: Hypertension. Diabetes mellitus. Dyslipidemia. Conclusions Summary: - Left ventricle: The cavity size is below normal. Wall thickness is mildly increased. Systolic function is normal. The estimated ejection fraction is 60-65%. Wall motion is normal; there are no regional wall motion abnormalities. - Functionally benign heart valves. - Since the prior echocardiogram completed 03/22/18, there appears to be little change. Study data: Transthoracic echocardiogram. Procedure: Transthoracic echocardiography was performed. Image quality was fair. Complete 2D, spectral Doppler, and color flow Doppler. Location: Bedside. Patient status: Inpatient. Patient room number: 443-02. Rhythm: Bradycardia. Findings Left ventricle: The cavity size is below normal. Wall thickness is mildly increased. Systolic function is normal. The estimated ejection fraction is 60-65%. Wall motion is normal; there are no regional wall motion abnormalities. There is no consistent Doppler evidence of clinically significant diastolic dysfunction. Right ventricle: The cavity size is normal. Systolic function is normal. Left atrium: The atrium is normal in size. Right atrium: The atrium is normal in size. Mitral valve: The leaflets are mildly thickened. There is no evidence of stenosis. There is trace regurgitation. Aortic valve: The valve is trileaflet. The leaflets are mildly thickened. There is no evidence of stenosis. There is no significant regurgitation. Tricuspid valve: The valve is structurally normal. There is trace regurgitation. Pulmonic valve: Not well visualized. There is no evidence of stenosis nor regugitation. Aorta: Ascending aorta: The ascending aorta is appears normal. The aortic root appears normal. The aortic arch appears normal. Pericardium: A prominent pericardial fat pad is present. There is no pericardial effusion. Pulmonary arteries: Not well visualized. Systolic pressure can not be accurately estimated. Systemic veins: Inferior vena cava: The vessel is dilated. There is (< 50%) respiratory change in the IVC dimension. Measurements Left ventricle Value Ref Aortic valve Value Ref RIVAS, LAX (L) 3.7 cm 3.8 - 5.2 Michael diam, ED 1.7 cm ---- ESD, LAX 2.6 cm 2.2 - 3.5 Peak v, S 1.1 m/sec ---- FS, LAX 30 % 27 - 45 VTI, S 24.8 cm ---- PW, ED, LAX (H) 1.1 cm 0.6 - 0.9 Mean grad, S 2.0 mm Hg ---- FS 30 % 27 - 45 Peak grad, S 5.0 mm Hg ---- PW, ED (H) 1.1 cm 0.6 - 0.9 LVOT/AV, VTI ratio 1.05 ---- E', lat michael, TDI (L) 9.2 cm/sec >=10.0 E/e', lat michael, 12 Mitral valve Value Ref TDI Peak E 1.14 m/sec ---- E', med michael, TDI 9.4 cm/sec >=7.0 Peak A 0.88 m/sec -- -- E/e', med michael, 12 Decel time 192 ms ---- TDI Peak grad, D 5.2 mm Hg ---- E', avg, TDI 9.3 cm/sec Peak E/A ratio 1.3 ---- E/e', avg, TDI 12 <=14 Pulmonic valve Value Ref LVOT Value Ref Peak v, S 0.75 m/sec ---- Peak deb, S 1.08 m/sec Peak grad, S 2.0 mm Hg ---- VTI, S 26.0 cm Mean grad, S 2 mm Hg Aortic root Value Ref Root diam 3.1 cm <4.0 Ventricular septum Value Ref Root max diam, ED 3.1 cm <4.0 IVS, ED (H) 1.1 cm 0.6 - 0.9 Ascending aorta Value Ref Right ventricle Value Ref AAo AP diam, S 3.0 cm ---- RIVAS, LAX 3.1 cm Aortic arch Value Ref Left atrium Value Ref Arch diam 1.7 cm ---- AP dim, ES 3.50 cm 2.70 - 3.80 Decending aorta Value Ref ML dim, A4C 3.8 cm Paige peak deb 0.62 m/sec ---- SI dim, A4C 4.4 cm Vol/bsa, ES, 1-p 26 ml/m^2 11 - 40 Inferior vena cava Value Ref A4C Diam 2.6 cm ---- Vol/bsa, ES, A/L 27 ml/m^2 16 - 34 Right atrium Value Ref SI dim, ES 4.2 cm 3.4 - 5.3 ML dim, ES, A4C 3.5 cm 2.6 - 4.4 SI dim, ES, A4C 4.2 cm 3.4 - 5.3 Estimated RAP 15 mm Hg Legend: (L) and (H) misha values outside specified reference range. Prepared and electronically signed by Ubaldo Castellano MD 10/28/2018 16:14
[2018-10-28] MEDS: Cetirizine* 10 MG TAB PO SCH (17:28)
[2018-10-28] MEDS: Atorvastatin* 10 MG TAB PO SCH (21:04)
[2018-10-28] MEDS: Nitroglycerin 0.3 MG/HR PATCH* (7.5 MG) TRANSDERM SCH (21:05)
[2018-10-29] MEDS: HYDROmorphone TAB* 4 MG PO PRN ×7 (03:07→21:39)
[2018-10-29] MEDS: diPHENhydraMINE PO* 50 MG PO PRN (03:10)
[2018-10-29] MEDS: Baclofen TAB* 20 MG PO PRN ×3 (06:10→21:23)
[2018-10-29] MEDS: Enoxaparin(*) 80 MG/0.8 ML SYR SUBCUT SCH ×2 (06:11→18:44)
[2018-10-29] MEDS: Nitro Patch/OINT Remove PATCH OFF SCH (06:13)
[2018-10-29] MEDS: Insulin LISPRO* 1 UNITS UNIT SUBCUT SCH ×4 (08:24→21:18)
[2018-10-29] MEDS: Acetaminophen TAB* 325 MG PO PRN ×2 (09:15→15:30)
[2018-10-29] MEDS: Potassium Chlor TAB* 10 MEQ TAB.ER PO SCH ×2 (09:17→21:22)
[2018-10-29] MEDS: Cephalexin CAP* 500 MG PO SCH ×2 (09:17→21:23)
[2018-10-29] MEDS: Senna TAB 8.6 mg* TAB PO SCH ×2 (09:17→21:22)
[2018-10-29] MEDS: Atenolol TAB* 25 MG PO SCH (09:17)
[2018-10-29] MEDS: Pantoprazole TAB * 40 MG TAB PO SCH (09:17)
[2018-10-29] MEDS: CMCS:Estradiol TAB(NF) 1 MG TAB PO SCH (09:18)
[2018-10-29] MEDS: PTO:IPRATROPIUM BR (NF)0.06% NASAL 1 SPRAY BTL BOTH NARES SCH ×4 (09:19→21:24)
[2018-10-29] MEDS: [UNRECOGNIZED DRUG - OTHER] SUBCUT SCH (09:24)
[2018-10-29] MEDS: INSULIN DEGLUDEC SUBCUT SCH (09:24)
[2018-10-29] MEDS ORDERED: SUMAtriptan SQ* 6 MG/0.5 ML VIAL SUBCUT ONE (09:38)
[2018-10-29] MEDS ORDERED: Ondansetron ODT TAB* 4 MG PO PRN (09:39)
[2018-10-29] MEDS: Ondansetron INJ* 2 MG/ML VIAL IV PRN ×2 (10:16→21:19)
[2018-10-29] MEDS: Cetirizine* 10 MG TAB PO SCH (18:37)
[2018-10-29] MEDS: Nitroglycerin 0.3 MG/HR PATCH* (7.5 MG) TRANSDERM SCH (19:35)
[2018-10-29] MEDS: Atorvastatin* 10 MG TAB PO SCH (21:23)
[2018-10-30] MEDS: diPHENhydraMINE PO* 50 MG PO PRN (00:41)
[2018-10-30] MEDS: HYDROmorphone TAB* 4 MG PO PRN ×5 (00:41→13:48)
[2018-10-30] MEDS: Nitro Patch/OINT Remove PATCH OFF SCH (05:55)
[2018-10-30] MEDS: Enoxaparin(*) 80 MG/0.8 ML SYR SUBCUT SCH (05:58)
[2018-10-30 06:30] LABS: Anion Gap 6 mmol/L (2-11); BUN/Creatinine Ratio 9.1 (8-20); Blood Urea Nitrogen 8 mg/dL (6-24); C Reactive Protein < 1.00 mg/L (<8.01); CO2 Carbon Dioxide 27 mmol/L (22-32); Calcium 9.3 mg/dL (8.6-10.3); Chloride 107 mmol/L (101-111); EGFR African American 76.9 (>60); EGFR Non-African American 63.5 (>60); Glucose 106 mg/dL (70-100); Magnesium 1.9 mg/dL (1.9-2.7); Phosphorus 4.3 mg/dL (2.5-5.0); Potassium 3.9 mmol/L (3.5-5.0); Sodium 140 mmol/L (135-145)
[2018-10-30 07:56] VITALS: BP 125/62
[2018-10-30] MEDS: CMCS:Estradiol TAB(NF) 1 MG TAB PO SCH (09:05)
[2018-10-30] MEDS: Senna TAB 8.6 mg* TAB PO SCH (09:05)
[2018-10-30] MEDS: Insulin LISPRO* 1 UNITS UNIT SUBCUT SCH ×2 (09:05→13:48)
[2018-10-30] MEDS: Potassium Chlor TAB* 10 MEQ TAB.ER PO SCH (09:05)
[2018-10-30] MEDS: Atenolol TAB* 25 MG PO SCH (09:06)
[2018-10-30] MEDS: PTO:IPRATROPIUM BR (NF)0.06% NASAL 1 SPRAY BTL BOTH NARES SCH ×2 (09:06→13:50)
[2018-10-30] MEDS: Cephalexin CAP* 500 MG PO SCH (09:06)
[2018-10-30] MEDS: Pantoprazole TAB * 40 MG TAB PO SCH (09:06)
[2018-10-30] MEDS: INSULIN DEGLUDEC SUBCUT SCH (09:12)
[2018-10-30] MEDS: [UNRECOGNIZED DRUG - OTHER] SUBCUT SCH (09:12)
[2018-10-30] MEDS: Baclofen TAB* 20 MG PO PRN (11:08)
--- NOTE | 2018-11-01 12:10 | DS ---
cc: Dr. Jared Henderson; Visiting Nurse Service* DISCHARGE SUMMARY: DATE OF ADMISSION: 10/23/18 DATE OF DISCHARGE: 10/30/18 DISCHARGE DIAGNOSES: 1. Nausea and vomiting. 2. Migraine headache. 3. Urinary tract infection. 4. Type 2 diabetes, poorly controlled. 5. Paroxysmal atrial fibrillation. 6. Hypokalemia. 7. Multiple allergies. 8. Medication nonadherence. 9. Chronic pain, on chronic opioid therapy. 10. Hyperlipidemia. 11. History of gastroesophageal reflux disease. 12. Chronic constipation. 13. Chronic demyelinating disease. 14. Fibromyalgia. 15. History of peripheral neuropathy. 16. Polyarthropathy. 17. Superior vena cava syndrome. 18. Osteoporosis. 19. Diverticulosis. 20. Degenerative joint disease. 21. History of asthma. 22. History of hypertension. 23. Right knee pain. HISTORY OF PRESENT ILLNESS: Keila Brown is a 68-year-old woman admitted with nausea and vomiting. Please see the dictated admission note for details of the present illness, past medical history, family history, social and personal history, review of systems, and physical examination. DIAGNOSTIC STUDIES/LAB DATA: Laboratory Data: CBC on 03/21/18: WBC 7, H and H 11.9/37, MCV 78, PLT 253,000. CBC on 10/23/18: WBC 8.6, H and H 17.5/51, MCV 86, PLT 223,000. CBC prior to discharge: WBC 6.7, H and H 14.3/42, MCV 87 , PLT 168,000. INR 0.90, PTT 27.2, both normal. ABGs on 10/26/18: pH 7.40, pCO2 of 33, pO2 of 81. Chemistries on admission, 10/23/18: Sodium 140, potassium 3.5, chloride 101, CO2 of 31, BUN and creatinine 18/0.82, glucose 155. Rest of the comprehensive metabolic panel was within normal limits. B12 was normal at 797. TSH was normal at 0.46. Lipase normal at 37. Troponin normal at 0. Lactic acid normal at 1. Potassium went down to 3.4 on 10/26/18, was 4.4 on 10/28/18, 3.9 on 10/30/18. Blood sugars ranged from 70 to 298. Hemoglobin A1c was 10.8%. A 25- hydroxyvitamin D was 55.9. Troponin was 0 x3 on 10/26/18. Urinalysis on 10/23/18, armin, cloudy, specific gravity 1.016, pH 7, dipsticks positive for trace esterase, wbc's 3+, rbc's trace, bacteria 1+, glucose 3+. Urine culture grew out E. coli greater than 100,000 CFU/mL, sensitive to all antibiotics tested. Imaging: Brain CT on 10/23/18 showed no acute intracranial pathology. There was a stable arachnoid cyst in the left frontoparietal convexity. Chest thorax CTA on 10/26/18 was negative for pulmonary emboli. 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 Nuclear stress test 10/28/18 showed no focal areas of stress-induced ischemia or infarct. She did have elevated transient ischemic dilatation favoring distal small-vessel disease. Cardiovascular, EKG on 10/23/18: Sinus rhythm, normal EKG, QRS leftward than EKG. EKG on 10/26/18 showed irregular rhythm, probable sinus with frequent PACs. EKG on 10/26/18 at 1745 showed atrial fibrillation, ventricular rate 80/146, nonspecific T-wave abnormalities, rhythm new; otherwise, no significant change. EKG on 10/27/18: Sinus bradycardia, nonspecific T-wave abnormalities, sinus rhythm replaces atrial fibrillation. Transthoracic echocardiogram on 10/26/18 showed normal LV function with mildly thickened wall thickness. No significant change since 03/22/18 EKG. HOSPITAL COURSE: The patient was initially admitted with nausea and vomiting, which was felt to have started when she had migraine. She was treated with IV Zofran, IV Dilaudid as she was unable to keep down her oral Dilaudid doses. She was maintained on intravenous fluids. She declined an abdomen and pelvis CT. She was placed on a clear liquid diet. Urine culture did reveal a urinary tract infection, which was subsequently treated with cephalexin. It was felt that perhaps her symptoms might have related to that in addition to the migraine. She was continued on home pantoprazole for gastroesophageal reflux disease. Baclofen was ordered p.r.n. for muscle spasm. Lovenox was given for DVT prophylaxis. She was a full code. On 10/24/18, she was keeping down Jell- O. She had a headache, was requesting subcutaneous sumatriptan, which she takes at home and which was ordered several times during her hospitalization. She did admit to frequency and urgency of urination. She was placed on diabetes sliding scale insulin. Her long-acting Xultophy was initially held. On 10/25/18, she was eating better, but still had migraine; better after taking sumatriptan. Of note, initially, she got a dose of nitrofurantoin prior to starting Keflex and this caused her to have shaking and so she requested a different antibiotic and at that point, it was switched. She was initially given IV fluids, which were discontinued on 10/25/18 as she was eating. On 10/26, she still had migraine. She requested a brace for her right knee pain. She also requested Benadryl for stuffiness at night, had been taking 50 mg at home and ipratropium nasal spray. She had been walking in the [place]. Her beta micah was increased thinking that that might help with her migraines, which had been more frequent recently. Her blood sugar was up, so she was given Lantus and told to bring in the Xultophy from home. Her blood pressure was high. It was felt that her IV fluids had contributed to this. On the evening of 10/26/18, there was a CAT call because she developed chest pain and then atrial fibrillation. AK was ruled out with serial troponins. She subsequently underwent stress testing as noted above. This showed no signs of myocardial ischemia on the stress test and the nuclear portion suggested possible small- vessel disease, did not need a heart catheterization. It was felt that increasing her atenolol will help. She may need to be switched to a different beta micah. The patient tells me she also had been taking Jardiance at home for her diabetes. This has not been on her original list. It was felt that her hypokalemia could have contributed to the atrial fibrillation and this was repleted. She was on enoxaparin during the hospitalization, which was increased to full treatment because of the atrial fibrillation. On 10/28/18, she said she felt better than she had in a month, had not had a migraine in a couple of days. This was the day that she was having her nuclear stress test. It was noted that her vitamin D, which had previously been very high at home because she was taking too much vitamin D, had come down to a reasonable level. It was felt that she could be discharged the following day. Xultophy was resumed because of high blood sugar. On 10/29/18, she was going to be sent home , but then had a terrible migraine which had begun in the middle of the night. It was decided that she should not go home that day. It was noted that her hemoglobin A1c was elevated, indicating continued poor control of her diabetes as she is not always adherent with her medication. She was no longer vomiting. On 10/30/18, she was feeling better and felt up to going home. She had a ride set up. We discussed her estradiol, which could also be contributing to the headaches. She said she takes it because of sweating. It was felt that her urinary tract infection had been adequately treated. A UA was ordered prior to discharge, but not obtained. Her blood sugars were better. Her migraine had resolved. It was felt that we were going to cut back on her dose of estradiol to see if she had fewer migraines. Nausea and vomiting had resolved. DISCHARGE PLAN: She is being discharged on the usual diet. Activity as tolerated. VNS will be seeing her at home. . DISCHARGE MEDICATIONS: Her medications are to be as follows: 1. Xultophy 50 units at bedtime. 2. Jardiance 10 mg daily. 3. Metformin 1000 mg twice a day. 4. Bumetanide 2 mg 2-1/2 pills daily. She spreads these throughout the day. 5. Ondansetron 4 mg every 4 hours as needed for nausea. 6. Dexilant 60 mg daily. 7. Linzess 290 mg daily. 8. Levocetirizine 5 mg daily. 9. Azelastine 0.15%, 2 sprays to both nostrils twice a day. 10. Folic acid 1 mg daily. 11. [place]-3 fish oil 2000 mg twice a day. 12. Ipratropium 0.03% one spray to both nostrils daily (?0.06%). 13. Dilaudid 8 mg every 3 hours p.r.n.; she takes 7 per day. 14. Sumatriptan 100 mg daily or 6 mg subcutaneously as needed for migraine. 15. Alpha lipoic acid 200 mg twice a day. 16. Ascorbic acid 500 mg daily. 17. Baclofen 20 mg 4 times a day as needed. 18. Clobetasol ointment topically twice a day as needed. 19. Metronidazole cream twice a day as needed. 20. Milk thistle 70 mg daily. 21. Clotrimazole/betamethasone, Lotrisone cream twice a day as needed. 22. Atorvastatin 5 mg at bedtime. 23. Atenolol 25 mg daily. 24. Cholecalciferol; this is on the med list, should not be taking. 25. Estradiol 0.5 mg daily. 26. Potassium chloride 10 mEq twice a day. 27. Calcium carbonate as needed. 28. Mylanta as needed. 29. Ysabel-C 500 mg twice a day. 30. Brimonidine tartrate (Mirvaso) 30 g p.r.n. 31. NovoLog subcutaneously with meals as before. FOLLOWUP: Should be with me in 1 to 2 weeks. CONDITION: Improved. DISPOSITION: Discharge is to home. [id number]/[facility] #: [id number] [facility]
== END 2018-10-30 14:00 | disposition home health service (06) | DRG 690 ==
LOC: ED 09:42 → MED 14:21 → MEDTELE 10-26 21:11
PROVIDERS: ADMIT Internal Medicine; ATTEND Internal Medicine Geriatric Medicine
DX: N39.0 Urinary tract infection, site not specified (principal); I50.32 Chronic diastolic (congestive) heart failure; I87.1 Compression of vein; G37.9 Demyelinating disease of central nervous system, unspecified; E11.65 Type 2 diabetes mellitus with hyperglycemia; G43.909 Migraine, unspecified, not intractable, without status migrainosus; K59.09 Other constipation; E11.42 Type 2 diabetes mellitus with diabetic polyneuropathy; M79.7 Fibromyalgia; M81.0 Age-related osteoporosis without current pathological fracture; K21.9 Gastro-esophageal reflux disease without esophagitis; D64.9 Anemia, unspecified; K57.90 Diverticulosis of intestine, part unspecified, without perforation or abscess without bleeding; G89.29 Other chronic pain; E78.00 Pure hypercholesterolemia, unspecified; M19.90 Unspecified osteoarthritis, unspecified site; F32.9 Major depressive disorder, single episode, unspecified; E11.36 Type 2 diabetes mellitus with diabetic cataract; E86.0 Dehydration; E86.9 Volume depletion, unspecified; M25.561 Pain in right knee; I27.20 Pulmonary hypertension, unspecified; J45.909 Unspecified asthma, uncomplicated; M62.838 Other muscle spasm; R07.9 Chest pain, unspecified; I48.0 Paroxysmal atrial fibrillation; E87.6 Hypokalemia; I11.0 Hypertensive heart disease with heart failure; G35 Multiple sclerosis; Z88.8 Allergy status to other drugs, medicaments and biological substances; Z88.5 Allergy status to narcotic agent; Z88.1 Allergy status to other antibiotic agents; Z88.6 Allergy status to analgesic agent; Z90.49 Acquired absence of other specified parts of digestive tract; Z90.710 Acquired absence of both cervix and uterus; Z82.49 Family history of ischemic heart disease and other diseases of the circulatory system; Z80.0 Family history of malignant neoplasm of digestive organs; Z87.891 Personal history of nicotine dependence; Z88.0 Allergy status to penicillin; Z88.2 Allergy status to sulfonamides; Z91.018 Allergy to other foods; Z91.048 Other nonmedicinal substance allergy status; Z98.42 Cataract extraction status, left eye; Z80.3 Family history of malignant neoplasm of breast; Z91.14 Patient's other noncompliance with medication regimen; Z79.84 Long term (current) use of oral hypoglycemic drugs
CPT/HCPCS: 36415; 36600; 70450; 71275; 78452; 80048; 80053; 81003; 81015; 82306; 82607; 82728; 82803; 83036; 83605; 83690; 83735; 84100; 84443; 84484; 85025; 85027; 86140; 87040; 87077; 87086; 87186; 93005; 93017; 93306; 99284; A9270-GY; A9502; G8978-GP-CI; G8978-GP-CJ; G8979-GP-CJ; J1170; J1650; J2405; J2785; J3030; J3480; Q9967

== ENCOUNTER 2018-12-10 02:09 | Inpatient (IN) | payer MEDICARE, MEDICAID ==
[2018-12-10] MEDS ORDERED: NS 0.9% 1000 ML** 1,000 ML IV ONE (02:45)
[2018-12-10 03:17] LABS: Urine Appearance Clear; Urine Bilirubin Negative (Negative); Urine Blood Negative (Negative); Urine Color Yellow; Urine Glucose 3+(>=500 mg/dL) (Negative); Urine Ketones 1+ (Negative); Urine Nitrite Negative (Negative); Urine Protein Negative (Negative); Urine Specific Gravity 1.028 (1.010-1.030); Urine Urobilinogen Negative (Negative)
--- OUTSIDE RECORDS SUMMARY | 2018-12-10 03:18 | XMS REPORT | Continuity of Care Document ---
:1950 External Reference #:[id number] Author Name Kaiden Duncan DO, MPH Address [address] [place] [address], [address] [place] [address] Care Team Providers Name Role Phone Anila Saul M.D. - Internal Care Team Information Customer Account Specialist Medicine Problems Active Problems Provider Date Type 2 diabetes mellitus Kaiden Duncan DO, MPH Onset: 09/03/2013 Social History Type Date Description Comments Sex Unknown Cigarette Use Former Cigarette Smoker 4 Packs Daily ETOH Use Denies alcohol use Tobacco Use Start: Unknown End: Unknown Patient is a former smoker Smoking Status Reviewed: 11/01/18 Patient is a former smoker Allergies, Adverse [...] 01/20/2014 8mg Tablets q3-4 hours as DO, [facility] directed chronic pain patient Lidocaine sig: [...] mouth Unknown 1mg Tablets every day Ipratropium [place] Unknown 0.06% Solution Levocetirizine sig: take 1 [...] Unknown 60mg Capsules DR Azelastine HCL Unknown 137mcg/[place] Solution Lipitor 1 by mouth daily Unknown [...] Available Vital Signs Date Vital Result Comment 11/01/2018 2:08pm BP Systolic 122 mmHg BP Diastolic 74 mmHg Heart Rate 76 /min Respiratory Rate 20 /min Height 64 inches 5'4" Weight 161.00 lb Pain Level 8 Pain at this time. Pain Level With Medicine 8 on average with meds Pain Level Without Medicine 9 without meds BMI (Body Mass Index) 27.6 kg/m2 09/23/2018 2:59pm BP Systolic 130 mmHg BP [...] Information Available Procedures Date Code Description Status 09/23/2018 68253 Therapeutic, Prophylactic Or Diagnostic Injection Subq/Im Completed 08/26/2018 72235 Therapeutic, Prophylactic Or Diagnostic Injection Subq/Im Completed 07/23/2018 60050 Therapeutic, Prophylactic Or Diagnostic Injection Subq/Im Completed 06/11/2018 34532 Omt 1-2 Body Regions Completed 06/11/2018 14558 Therapeutic, Prophylactic Or Diagnostic Injection Subq/Im Completed 05/16/2018 82377 Therapeutic, Prophylactic Or Diagnostic Injection Subq/Im Completed Medical Devices Description No Information Available Encounters Type Date Location Provider Dx Diagnosis Office Visit 09/23/2018 Main Office as Of Kaiden Duncan DO G89.21 Chronic pain due 3:15p 03/22/13 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 M54.2 Cervicalgia M54.5 Low back pain R53.83 Other fatigue Z79.891 custodial (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 analgesic Office Visit 08/26/2018 2:30p Main Office as Kaiden Duncan 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, 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 M54.2 Cervicalgia M54.5 Low back pain Z79.891 intermodal customer service (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 analgesic R53.83 Other fatigue Office Visit 07/23/2018 2:45p Main Office as Kaiden Duncan 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, 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 M54.5 Low back pain M54.2 Cervicalgia R53.83 Other fatigue Z79.891 custodial (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 analgesic Office Visit 06/11/2018 2:30p Main Office as Kaiden Duncan 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, 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 M54.2 Cervicalgia M54.5 Low back pain M99.01 Segmental and somatic dysfunction of cervical region R53.83 Other fatigue Z79.891 intermodal customer service (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 analgesic Office Visit 06/05/2018 2:30p Main Office as Kaiden Duncan, 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, 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 M54.5 Low back pain Office Visit 05/16/2018 3:00p Main Office as DuncanNila zavaletaph, 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, 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 M54.5 Low back pain M54.2 Cervicalgia M79.7 Fibromyalgia M06.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21 Chronic pain due to trauma Duncan, Kaiden, DO, MPH 09/23/2018 M54.2 Cervicalgia Duncan, Kaiden, DO, MPH 09/23/2018 M54.5 Low back pain Duncan, Kaiden, DO, MPH 09/23/2018 R53.83 Other fatigue Duncan, Kaiden, DO, MPH 09/23/2018 Z79.891 intermodal customer service (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 analgesic Duncan, Kaiden , DO, MPH 08/26/2018 G89.21 Chronic pain due to trauma Duncan, Kaiden, DO, MPH 08/26/2018 M54.2 Cervicalgia Duncan, Kaiden, DO, MPH 08/26/2018 M54.5 Low back pain Duncan, Kaiden, DO, MPH 08/26/2018 Z79.891 custodial (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 analgesic Duncan, Kaiden , DO, MPH 08/26/2018 R53.83 Other fatigue Duncan, Kaiden, DO, MPH 07/23/2018 G89.21 Chronic pain due to trauma Duncan, Kaiden, DO, MPH 07/23/2018 M54.5 Low back pain Duncan, Kaiden, DO, MPH 07/23/2018 M54.2 Cervicalgia Duncan, Kaiden, DO, MPH 07/23/2018 R53.83 Other fatigue Duncan, Kaiden, DO, MPH 07/23/2018 Z79.891 custodial (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 analgesic Duncan, Kaiden , DO, MPH 06/11/2018 G89.21 Chronic pain due to trauma Duncan, Kaiden, DO, MPH 06/11/2018 M54.2 Cervicalgia Duncan, Kaiden, DO, MPH 06/11/2018 M54.5 Low back pain Duncan, Kaiden, DO, MPH 06/11/2018 M99.01 Segmental and somatic dysfunction of Duncan, Kaiden, DO, MPH cervical region 06/11/2018 R53.83 Other fatigue Duncan, Kaiden, DO, MPH 06/11/2018 Z79.891 intermodal customer service (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 analgesic Duncan, Akiden , DO, MPH 06/05/2018 G89.21 Chronic pain [...] , MPH complications 05/16/2018 K59.00 Constipation, unspecified Kaiden Duncan DO, MPH 05/16/2018 R53.83 Other fatigue Kaiden Duncan DO, MPH 05/16/2018 Z79.891 custodial (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 analgesic Kaiden Duncan DO, MPH Plan of Treatment Future Appointment(s):11/21/2018 3:15 pm - Kaiden Duncan DO, MPH at Main Office as Of 03/22/1408 - Kaiden Duncan DO, MPHAllComments:Continue current medical pain management; injection therapy, osteopathic [...] while maintaining satisfactory side effect profile andminimizing manager terminal end-organ damage. Importance of regular nutrition throughout the day discussed.Activity as toleratedContinue with PCP Functional Status Description No Information Available Mental Status Description No Information Available Referrals Description No Information Available
--- OUTSIDE RECORDS SUMMARY | 2018-12-10 03:18 | XMS REPORT | Continuity of Care Document ---
:1950 External Reference #:[id number] Author Name Kaiden Duncan DO, MPH Address [address] [place] [address], [address] [place] [address] Care Team Providers Name Role Phone Anila Saul M.D. - Internal Care Team Information Permanent Mold Supervisor [phone] Medicine Problems Active Problems Provider Date Type 2 diabetes mellitus Kaiden Duncan DO, MPH Onset: 09/03/2013 Social History Type Date Description Comments Sex Unknown Cigarette Use Former Cigarette Smoker 4 Packs Daily ETOH Use Denies alcohol use Tobacco Use Start: Unknown End: Unknown Patient is a former smoker Smoking Status Reviewed: 11/21/18 Patient is a former smoker Allergies, Adverse [...] 01/20/2014 8mg Tablets q3-4 hours as DO, [facility] directed chronic pain patient Lidocaine sig: [...] mouth Unknown 1mg Tablets every day Ipratropium [place] Unknown 0.06% Solution Levocetirizine sig: take 1 by Unknown Dihydrochloride mouth daily 5mg Tablets Vitamin C si by mouth Unknown 500mg Tablets twice a day Metronidazole Unknown 1% Gel Triple Paste Unknown 12.8% Ointment Fish Oil 2 by mouth every Unknown 1000mg Capsules day as directed Jardiance Unknown 10mg Tablets Xultophy Unknown 100-3.6Unit-mg/ML Solution Pen-Inject Novolog Penfill Unknown 100Unit/ML Solution Cartridge Clotrimazole/Betamethas Unknown one Dipropionate 1-0.05% Cream Baclofen 1 by mouth every Unknown 20mg Tablets 6-8 hours Floradix 2 teaspoon twice Unknown Liquid daily before meals Lipitor 1 by mouth daily Unknown 10mg Tablets Azelastine HCL Unknown 137mcg/Sugarcreek Solution Dexilant si po qd 30caps Unknown 60mg Capsules DR Vargas si po qd 30caps Unknown 145mcg Capsules Mylanta Gas Relief prn Unknown Maximum Strength 125mg Capsules Maalox prn Unknown 600mg Chewtabs Vitamin D 1 po qid Unknown 1000Unit Tablets Clobetasol Propionate Unknown 0.05% Cream Ondansetron HCL 1 q 4 hrs for Unknown 4mg Tablets nausea Metformin HCL 1 po bid Unknown 1000mg Tablets Imitrex 1-2 by mouth 20tabs Unknown 50mg Tablets every day as directed Folic Acid 1 po qd Unknown 1mg Tablets Epiklor 1 daily Unknown 20Meq Packet Immunizations Description No Information Available Vital Signs Date Vital Result Comment 11/21/2018 3:27pm BP Systolic 120 mmHg BP Diastolic 74 mmHg Heart Rate 76 /min Respiratory Rate 20 /min Height 64 inches 5'4" Weight 154.00 lb Pain Level 9 Pain at this time. Pain Level With Medicine 9 on average with meds Pain Level Without Medicine 9 without meds BMI (Body Mass Index) 26.4 kg/m2 11/01/2018 2:08pm BP Systolic 122 mmHg BP Diastolic 74 mmHg Heart Rate 76 /min Respiratory Rate 20 /min Height 64 inches 5'4" Weight 161.00 lb Pain Level 8 Pain at this time. Pain Level With Medicine 8 on average with meds Pain Level Without Medicine 9 without meds BMI (Body Mass Index) 27.6 kg/m2 Results Description No Information Available Procedures Date Code Description Status 11/01/2018 08256 Therapeutic, Prophylactic Or Diagnostic Injection Subq/Im Completed 09/23/2018 35468 Therapeutic, Prophylactic Or Diagnostic Injection Subq/Im Completed 08/26/2018 21363 Therapeutic, Prophylactic Or Diagnostic Injection Subq/Im Completed 07/23/2018 62474 Therapeutic, Prophylactic Or Diagnostic Injection Subq/Im Completed 06/11/2018 45700 Omt 1-2 Body Regions Completed 06/11/2018 82764 Therapeutic, Prophylactic Or Diagnostic Injection Subq/Im Completed Medical Devices Description No Information Available Encounters Type Date Location Provider Dx Diagnosis Office Visit 11/01/2018 Main Office as Of Kaiden Duncan DO, G89.21 Chronic pain due 1:45p 03/22/13 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 M54.2 Cervicalgia M54.5 Low back pain 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 R53.83 Other fatigue Office Visit 09/23/2018 3:15p Main Office as Kaiden Duncan G89.Tiffanie Chronic pain due Of 03/22/13 DO, 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 M54.2 Cervicalgia M54.5 Low back pain R53.83 Other fatigue Z79.891 [facility] (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 analgesic Office Visit 08/26/2018 2:30p Main Office as Kaiden Duncan G89.Tiffanie Chronic pain due Of 03/22/13 DO, 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 M54.2 Cervicalgia M54.5 Low back pain Z79.891 [facility]PC (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 analgesic R53.83 Other fatigue Office Visit 07/23/2018 2:45p Main Office as Kaiden Duncan 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, 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 M54.5 Low back pain M54.2 Cervicalgia R53.83 Other fatigue Z79.891 FPC (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 analgesic Office Visit 06/11/2018 2:30p Main Office as Duncan, Kaiden, 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, 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 M54.2 Cervicalgia M54.5 Low back pain M99.01 Segmental and somatic dysfunction of cervical region R53.83 Other fatigue Z79.891 [facility]PC (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 analgesic Office Visit 06/05/2018 2:30p Main Office as Duncan, Kaiden, 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, 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 M54.5 Low back pain Assessments Date Code Description Provider 11/21/2018 G89.21 Chronic pain due to trauma Duncan, Kaiden, DO, MPH 11/21/2018 M54.2 Cervicalgia Duncan, Kaiden, DO, MPH 11/21/2018 M54.5 Low back pain Duncan, Kaiden, DO, MPH 11/21/2018 R53.83 Other fatigue Duncan, Kaiden, DO, MPH 11/21/2018 Z79.891 FPC (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 analgesic Duncan, Kaiden , DO, MPH 11/01/2018 G89.21 Chronic pain due to trauma Duncan, Kaiden, DO, MPH 11/01/2018 M54.2 Cervicalgia Duncan, Kaiden, DO, MPH 11/01/2018 M54.5 Low back pain Duncan, Kaiden, DO, MPH 11/01/2018 Z79.891 FPC (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 analgesic Duncan, Kaiden , DO, MPH 11/01/2018 R53.83 Other fatigue Duncan, Kaiden, DO, MPH 09/23/2018 G89.21 Chronic pain due to trauma Duncan, Kaiden, DO, MPH 09/23/2018 M54.2 Cervicalgia Duncan, Kaiden, DO, MPH 09/23/2018 M54.5 Low back pain Duncan, Kaiden, DO, MPH 09/23/2018 R53.83 Other fatigue Duncan, Kaiden, DO, MPH 09/23/2018 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 Duncan, Kaiden , DO, MPH 08/26/2018 G89.21 Chronic pain due to trauma Duncan, Kaiden, DO, MPH 08/26/2018 M54.2 Cervicalgia DuncanKaiden zavaleta DO, MPH 08/26/2018 M54.5 Low back pain DuncanKaiden zavaleta DO, MPH 08/26/2018 Z79.891 FPC (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 analgesic DuncanKaiden zavaleta , DO, MPH 08/26/2018 R53.83 Other fatigue Kaiden Duncan DO, MPH 07/23/2018 G89.21 Chronic pain due to trauma Kaiden Duncan DO, MPH 07/23/2018 M54.5 Low back pain DuncanKaiden zavaleta DO, MPH 07/23/2018 M54.2 Cervicalgia DuncanKaiden zavaleta DO, MPH 07/23/2018 R53.83 Other fatigue DuncanKaiden zavaleta DO, MPH 07/23/2018 Z79.891 FPC (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 analgesic DuncanKaiden zavaleta , DO, MPH 06/11/2018 G89.21 Chronic pain due to trauma Kaiden Duncan DO, MPH 06/11/2018 M54.2 Cervicalgia Kaiden Duncan DO, MPH 06/11/2018 M54.5 Low back pain DuncanKaiden zavaleta DO, MPH 06/11/2018 M99.01 Segmental and somatic dysfunction of Kaiden Duncan DO, MPH cervical region 06/11/2018 R53.83 Other fatigue Kaiden Duncan DO, MPH 06/11/2018 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 Kaiden Duncan DO, MPH 06/05/2018 G89.21 Chronic pain due to trauma Kaiden Duncan DO, MPH 06/05/2018 M54.5 Low back pain Kaiden Duncan DO, MPH Plan of Treatment Future Appointment(s):01/02/2019 3:30 pm - Kaiden Duncan DO MPH at Main Office as Of 03/22/1409 - Kaiden Duncan DO, MPHG89.21 Chronic pain [...] document for lot number and expiration date.)Z79.891 [facility]PC (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 analgesicNew Labs: Urine Drug Screen, Ordered: 11/21/18Comments:Urine drug screen sample taken today to monitor [...] while maintaining satisfactory side effect profile andminimizing care home end-organ damage. Importance of regular nutrition throughout the day discussed.Activity as toleratedContinue with PCP Functional Status Description No Information Available Mental Status Description No Information Available Referrals Description No Information Available
[2018-12-10 03:30] LABS: Urine Benzodiazepine Screen None Detected (None Detect); Urine Opiates Screen Presumptive Positive (None Detect)
[2018-12-10 03:47] LABS: INR 1.02 (0.82-1.09)
[2018-12-10 04:03] LABS: ALT 7 U/L (7-52); AST 6 U/L (13-39); Alkaline Phosphatase 43 U/L (34-104); Blood Urea Nitrogen 7 mg/dL (6-24); EGFR African American 266.1 (>60); EGFR Non-African American 219.9 (>60); Glucose 219 mg/dL (70-100); Sodium 145 mmol/L (135-145)
[2018-12-10 04:05] LABS: Troponin I 0.01 ng/mL (<0.04)
--- NOTE | 2018-12-10 04:10 | ED ---
Complex/Multi-Sys Presentation - HPI Summary HPI Summary: Patient is a 68 y/o F presenting to [facility] via EMS with non-specific complaints of pain. Upon arrival to ED via EMS, the patient moans loudly and repeatedly says it hurts while lying in stretcher. She is rolling around in bed. During assessment, patient reports that she has been having back pain which she has had "for a long time". She states that she called the ambulance because she felt "really really awful". Patient is on Dilaudid. She is inconsistent with whether or not she has taken any prior to coming to ED. Patient notes that the EKG stickers are painful to her chest. She claims that she has diarrhea, PARKER, tingling/numbness of her feet, neck pain, and SOB but denies N/V. Patient claims to live alone and to have called EMS herself. Patient appears to be of altered mental status. Home medications and allergies are reviewed. - History Of Current Complaint Chief Complaint: EDAltMentalStatus Time Seen by Provider: 12/10/18 02:40 Hx Obtained From: Patient Onset/Duration: Still Present Timing: Constant Severity Currently: Severe Location: Pain At: - back Associated Signs And Symptoms: Positive: Headache, SOB, Diarrhea, Back Pain, Other - positive - PARKER, tingling/numbness of feet, neck pain, pain from EKG stickers. Negative: Nausea, Vomiting - Allergies/Home Medications Allergies/Adverse Reactions: Allergies Allergy/AdvReac Type Severity Reaction Status Date / Time methylparaben Allergy Intermediate Pain Verified 12/10/18 02:18 morphine Allergy Intermediate Hallucinati Verified 12/10/18 02:18 ons tizanidine Allergy Intermediate Swelling Verified 12/10/18 02:18 Of Face,Lips,& Throat Tricyclic Compounds Allergy Intermediate Altered Verified 12/10/18 02:18 Mental Status hydromorphone Allergy Mild See Comment Verified 12/10/18 02:18 itraconazole Allergy Mild Rash Verified 12/10/18 02:18 lanolin Allergy Mild Rash Verified 12/10/18 02:18 milnacipran Allergy Mild Rash And Verified 12/10/18 02:18 Itching mometasone furoate Allergy Mild Headache Verified 12/10/18 02:18 naloxone Allergy Mild Headache Verified 12/10/18 02:18 ondansetron Allergy Mild Headache Verified 12/10/18 02:18 oxycodone Allergy Mild Palpitation Verified 12/10/18 02:18 s oxymorphone Allergy Mild Palpitation Verified 12/10/18 02:18 s Penicillins Allergy Mild Rash Verified 12/10/18 02:18 pentazocine Allergy Mild Palpitation Verified 12/10/18 02:18 s propoxyphene Allergy Mild Rash Verified 12/10/18 02:18 sulfasalazine Allergy Mild Rash Verified 12/10/18 02:18 talc Allergy Mild Rash Verified 12/10/18 02:18 tramadol Allergy Mild Muscle Ache Verified 12/10/18 02:18 trazodone Allergy Mild Insomnia Verified 12/10/18 02:18 Adhesive Tape Allergy Unknown Unknown Verified 12/10/18 02:18 Reaction Details alprazolam Allergy Unknown Unknown Verified 12/10/18 02:18 Reaction Details aspirin Allergy Unknown Unknown Verified 12/10/18 02:18 Reaction Details cefaclor Allergy Unknown Unknown Verified 12/10/18 02:18 Reaction Details clarithromycin Allergy Unknown Unknown Verified 12/10/18 02:18 Reaction Details codeine Allergy Unknown Unknown Verified 12/10/18 02:18 Reaction Details diazepam Allergy Unknown Unknown Verified 12/10/18 02:18 Reaction Details diphenhydramine Allergy Unknown Unknown Verified 12/10/18 02:18 Reaction Details doxycycline Allergy Unknown Unknown Verified 12/10/18 02:18 Reaction Details duloxetine Allergy Unknown Unknown Verified 12/10/18 02:18 Reaction Details fentanyl Allergy Unknown See Comment Verified 12/10/18 02:18 fluoxetine Allergy Unknown Unknown Verified 12/10/18 02:18 Reaction Details gabapentin Allergy Unknown See Comment Verified 12/10/18 02:18 hydroxychloroquine Allergy Unknown Unknown Verified 12/10/18 02:18 Reaction Details paroxetine Allergy Unknown Unknown Verified 12/10/18 02:18 Reaction Details adhesive Allergy Blisters Verified 12/10/18 02:18 apple Allergy Anaphylatic Verified 12/10/18 02:18 Shock black pepper Allergy Hives/Diff. Verified 12/10/18 02:18 Breathing/I tching Bleach (Sodium Hypochlorite) Allergy Unknown Verified 12/10/18 02:18 Reaction Details capsaicin Allergy Unknown Verified 12/10/18 02:18 Reaction Details cigarette smoke Allergy Difficulty Verified 12/10/18 02:18 Breathing Corticosteroids Allergy Unknown Verified 12/10/18 02:18 (Glucocorticoids) Reaction Details melon Allergy Anaphylatic Verified 12/10/18 02:18 Shock mupirocin Allergy Unknown Verified 12/10/18 02:18 Reaction Details NSAIDS (Non-Steroidal Allergy Unknown Verified 12/10/18 02:18 Anti-Inflamma Reaction Details onion Allergy Hives/Diff. Verified 12/10/18 02:18 Breathing/I tching pepper (genus Capsicum) Allergy Unknown Verified 12/10/18 02:18 Reaction Details tapentadol [From Nucynta] Allergy Unknown Verified 12/10/18 02:18 Reaction Details lettuce AdvReac Stomach Verified 12/10/18 02:18 Cramps VINEGAR Allergy Intermediate TROUBLE Uncoded 12/10/18 02:18 BREATHING ENVRIONMENTAL Allergy Mild Sneezing Uncoded 12/10/18 02:18 BANDAIDS AdvReac Mild Blisters Uncoded 12/10/18 02:18 PMH/Surg Hx/FS Hx/Imm Hx Endocrine/Hematology History: Reports: Hx Diabetes Denies: Hx Systemic Lupus Erythematosus, Hx Thyroid Disease - But has thyroid tumor that needs annual check, Hx Anemia Cardiovascular History: Reports: Hx Angina, Hx Hypercholesterolemia, Hx Hypertension, Other Cardiovascular Problems/Disorders - SUPERIOR VENA CAVA [id number]. [facility] Denies: Hx Congestive Heart Failure - superior vena cava syndrome, Hx Coronary Artery Disease, Hx Pacemaker/ICD, Hx Valvular Heart Disease Respiratory History: Reports: Hx Asthma GI History: Reports: Hx Diverticulosis, Hx Gastroesophageal Reflux Disease, Hx Hiatal Hernia, Other GI Disorders - HX DIVERTICULOSIS Denies: Hx Jaundice History: Reports: Hx Acute Renal Failure Denies: Hx Chronic Renal Failure, Hx Dialysis, Hx Renal Disease Musculoskeletal History: Reports: Hx Arthritis - OSTEO, Hx Back Problems - degenerative disc disease, Hx Osteoporosis, Hx Tendonitis - WRISTS AND ELBOWS, Other Musculoskeletal History - DEGEN DISC DISEASE; chronic pain Denies: Hx Rheumatoid Arthritis - myeloradicular neurapathy Sensory History: Reports: Hx Cataracts - BILAT, Hx Contacts or Glasses Denies: Hx Hearing Aid Opthamlomology History: Reports: Hx Cataracts - BILAT, Hx Contacts or Glasses Neurological History: Reports: Hx Headaches, Hx Migraine - 2-3 TIMES PER WEEK- TREATS WITH IMITREX, Other Neuro Impairments/Disorders - multiple sclerosis, FIBROMYALGIA, MYELORADICULAR NEUROPATHY Denies: Hx Seizures Psychiatric History: Reports: Hx Depression Denies: Hx Panic Disorder - Cancer History Hx Chemotherapy: No Hx Radiation Therapy: No - Surgical History Surgery Procedure, Year, and Place: [place] [facility] [place] [facility] [place]OWEL RESE[place], COLOSTOMY 1993. [place] [facility] [place] [facility] [place] CRISTIAN WITH [place]APORT [place] [facility] [place] APPY REMOVAL OF RIGHT OVARIAN CYST AND RESECTION 1967. T&A. DEVIATED SEPTUM REPAIR. SINUS SURG[place] 2006 [facility] [place]. 2015- LEFT EYE CATARACT REMOVED Hx Anesthesia Reactions: No - Immunization History Date of Influenza Vaccine: hsa not received Infectious Disease History: No Infectious Disease History: Reports: Hx Hepatitis - "medical"- only while taking a medication-states no longer takes, name unkn Denies: Traveled Outside the in Last 30 Days - Family History Known Family History: Positive: Other - Breast CA; anesthesia reaction Negative: Cardiac Disease - Social History Alcohol Use: None Hx Substance Use: No Substance Use Type: Reports: None Hx Tobacco Use: Yes Smoking Status (MU): Former Smoker Type: Cigarettes Amount Used/How Often: 4 PPD X 15 YEARS Length of Time of Smoking/Using Tobacco: 20 YRS Have You Smoked in the Last Year: No Review of Systems Positive: Shortness Of Breath Positive: Diarrhea. Negative: Vomiting, Nausea Musculoskeletal: Other - positive - neck pain, back pain, generalized pain Skin: Other - positive - EKG stickers are painful Neurological: Other - positive - AMS Positive: Headache, Numbness - and tingling of feet All Other Systems Reviewed And Are Negative: Yes Physical Exam - Summary Physical Exam Summary: General: Well-developed, Well-nourished female, no acute distress. Sleepy but arousable. Rolling around in bed. HEENT: Normocephalic, Atraumatic. Eyes: Conjuctiva normal, PERRL. Ears: TMs within normal limits. Nares: (-) discharge, (-) erythema. Oropharynx: Clear, mucous membranes moist, (-) exudates. Neck: Soft, FROM, (-) lymphadenopathy, (-) thyromegaly, (-) JVD. Cardiovascular: Normal sinus rhythm, (-) murmur. Lungs: Clear to auscultation bilaterally (-) wheezes, (-) rales, (-) rhonchi. Abdomen: Soft, non-tender, non-distended, (-) organomegaly, normal bowel sounds. Back: (-) CVA tenderness Extremities: No edema. Skin: Warm, dry, (-) rash. Neuro: Patient is confused. Slurring her words. GCS 14. Psychiatric: Unable to assess due to alerted mental status Triage Information Reviewed: Yes Vital Signs On Initial Exam: Initial Vitals Temp Pulse Resp BP Pulse Ox 96.7 F 73 16 160/94 97 12/10/18 02:10 12/10/18 02:10 12/10/18 02:10 12/10/18 02:10 12/10/18 02:10 Vital Signs Reviewed: Yes Completion Of Physical Exam Limited Due To: Altered Mental Status - Rubén Coma Scale Best Eye Response: 4 - Spontaneous Best Motor Response: 6 - Obeys Commands Best Verbal Response: 4 - Confused Coma Scale Total: 14 Procedures - Sedation Patient Received Moderate/Deep Sedation with Procedure: No Diagnostics - Vital Signs Vital Signs Temp Pulse Resp BP Pulse Ox 12/10/18 02:19 77 19 155/92 97 12/10/18 02:18 72 97 12/10/18 02:10 96.7 F 73 16 160/94 97 - Laboratory Lab Results: Lab Results 12/10/18 12/10/18 12/10/18 Range/Units 02:22 02:50 02:50 INR (Anticoag Therapy) (0.82-1.09) ABG pH (7.35-7.45) ABG pCO2 (35-45) mmHg ABG pO2 (80-100) mmHg ABG HCO3 (19-31) mmol/L ABG O2 Saturation (94.0-98.0) % ABG Base Excess (-2.0-2.0) mmol/L POC Glucose (mg/dL) > 444 H* (70-100) mg/dL Urine Color Yellow Urine Appearance Clear Urine pH 9.0 (5-9) Ur Specific [place] 1.028 (1.010-1.030) Urine Protein Negative (Negative) Urine Ketones 1+ A (Negative) Urine Blood Negative (Negative) Urine Nitrate Negative (Negative) Urine Bilirubin Negative (Negative) Urine Urobilinogen Negative (Negative) Ur Leukocyte Esterase Negative (Negative) Urine Glucose 3+(>=500 mg/dl) A (Negative) Urine Ascorbic Acid * A (Negative) Urine Opiates Screen Presumptive positive A (None Detect) Ur Barbiturates Screen None detected (None Detect) Ur Phencyclidine Scrn None detected (None Detect) Ur Amphetamines Screen None detected (None Detect) U Benzodiazepines Scrn None detected (None Detect) Urine Cocaine Screen None detected (None Detect) U Cannabinoids Screen None detected (None Detect) 12/10/18 12/10/18 Range/Units 03:00 03:31 INR (Anticoag Therapy) 1.02 (0.82-1.09) ABG pH 7.49 H (7.35-7.45) ABG pCO2 33 L (35-45) mmHg ABG pO2 86 (80-100) mmHg ABG HCO3 26.6 (19-31) mmol/L ABG O2 Saturation 98.9 H (94.0-98.0) % ABG Base Excess 2.2 H (-2.0-2.0) mmol/L POC Glucose (mg/dL) (70-100) mg/dL Urine Color Urine Appearance Urine pH (5-9) Ur Specific [place] (1.010-1.030) Urine Protein (Negative) Urine Ketones (Negative) Urine Blood (Negative) Urine Nitrate (Negative) Urine Bilirubin (Negative) Urine Urobilinogen (Negative) Ur Leukocyte Esterase (Negative) Urine Glucose (Negative) Urine Ascorbic Acid (Negative) Urine Opiates Screen (None Detect) Ur Barbiturates Screen (None Detect) Ur Phencyclidine Scrn (None Detect) Ur Amphetamines Screen (None Detect) U Benzodiazepines Scrn (None Detect) Urine Cocaine Screen (None Detect) U Cannabinoids Screen (None Detect) Result Diagrams: 12/10/18 06:20 12/10/18 04:24 Lab Statement: Any lab studies that have been ordered have been reviewed, and results considered in the medical decision making process. - CT BRAIN CT CT Interpretation Completed By: Radiologist Summary of CT Findings: IMPRESSION: No acute intracranial pathology. THIS REPORT WAS REVIEWED BY DR. SCOTT. - EKG 0256 Cardiac Rate: NL - rate of 76 BPM EKG Rhythm: Sinus Rhythm Summary of EKG Findings: EKG showed NSR with rate of 76 BPM, no STEMI. This EKG was reviewed and interpreted by Dr. Scott. Re-Evaluation - Re-Evaluation First Eval Re-Evaluation Time: 05:39 Comment: While hooking up potassium, patient began to vomit. CT ABD/PEL to be obtained. Complex Multi-Symp Course/Dx Course Of Treatment: 68-year-old female with bizarre behavior. Moaning, agitated in the bed. Patient was about to be referred to hospitalist for change of mental status when she started vomiting bile. CT abdomen ordered and patient signed out at change of shift. - Diagnoses Provider Diagnoses: AMS (altered mental status), Hyperglycemia - Critical Care Time Critical Care Time: 75-104 min - 100 minutes CCT Discharge ED - Sign-Out/Discharge Documenting (check all that apply): Sign-Out Patient Signing out patient TO: Uzma Sutton - Discharge Plan Condition: Stable Disposition: ADMITTED TO [facility] - Billing Disposition and Condition Condition: STABLE Disposition: Admitted to [facility] - Attestation Statements Document Initiated by Scribe: Yes Documenting Scribe: RABIA CAVAZOS Provider For Whom Scribe is Documenting (Include Credential): JAIME SCOTT MD Scribe Attestation: RABIA Starks, scribed for JAIME SCOTT MD on 12/11/18 at 0048. Scribe Documentation Reviewed: Yes Provider Attestation: The documentation as recorded by the RABIA mayer accurately reflects the service I personally performed and the decisions made by me, JAIME SCOTT MD Status of Scribe Document: Viewed
[2018-12-10 04:11] LABS: Albumin < 1.5 g/dL (3.2-5.2); Anion Gap 4 mmol/L (2-11); CO2 Carbon Dioxide 11 mmol/L (22-32); Calcium < 4.0 mg/dL (8.6-10.3); Chloride 130 mmol/L (101-111); Globulin 1.5 g/dL (2-4); Hematocrit 24 % (35-47); Hemoglobin 8.4 g/dL (12.0-16.0); Magnesium 0.6 mg/dL (1.9-2.7); Mean Corpuscular HGB Conc 34 g/dL (31-36); Mean Corpuscular Hemoglobin 31 pg (27-31); Mean Corpuscular Volume 92 fL (80-97); Mean Platelet Volume 7.5 fL (7.4-10.4); Platelet Count 90 10^3/uL (150-450); Potassium 1.6 mmol/L (3.5-5.0); Red Blood Count 2.66 10^6 /uL (3.70-4.87); Red Cell Distribution Width 14 % (10-15); Total Protein < 3.0 g/dL (6.4-8.9); White Blood Count 5.5 10^3/uL (3.5-10.8)
[2018-12-10 04:16] LABS: Acetaminophen < 15 mcg/mL; Alcohol < 10 mg/dL (<10); Salicylate < 2.50 mg/dL (<30)
[2018-12-10 04:31] LABS: TSH (Thyroid Stimulating Horm) 0.12 mcIU/mL (0.34-5.60)
[2018-12-10 04:49] LABS: Albumin 3.9 g/dL (3.2-5.2); Albumin/Globulin Ratio 1.3 (1-3); BUN/Creatinine Ratio 15.9 (8-20); Calcium 9.4 mg/dL (8.6-10.3); EGFR African American 76.9 (>60); EGFR Non-African American 63.5 (>60); Globulin 3.1 g/dL (2-4); Total Bilirubin 0.8 mg/dL (0.2-1.0)
[2018-12-10 05:06] LABS: ABS Lymphocytes 1.1 10^3/ul (1.0-4.8); ABS Monocytes 0.4 10^3/ul (0-0.8); ABS Neutrophils 3.9 10^3/ul (1.5-7.7); Eosinophil % 0.2 %; Lymphocyte % 20.1 %; Nucleated Red Blood Cells % 0.1
[2018-12-10 05:19] LABS: Potassium 3.6 mmol/L (3.5-5.0)
[2018-12-10] MEDS ORDERED: Potassium Chlor TAB* 20 MEQ TAB.ER PO ONE (05:23)
[2018-12-10] MEDS ORDERED: KCL 10 MEQ/50 ML IVPREMIX* 10 MEQ/50 ML BAG IV ONE (05:23)
[2018-12-10] MEDS ORDERED: Ondansetron INJ* 2 MG/ML VIAL IV ONE (06:16)
[2018-12-10 06:25] LABS: ABS Lymphocytes 1.9 10^3/ul (1.0-4.8); ABS Monocytes 0.7 10^3/ul (0-0.8); ABS Neutrophils 8.1 10^3/ul (1.5-7.7); Eosinophil % 0.1 %; Hematocrit 47 % (35-47); Hemoglobin 16.1 g/dL (12.0-16.0); Lymphocyte % 17.7 %; Mean Corpuscular HGB Conc 35 g/dL (31-36); Mean Corpuscular Hemoglobin 31 pg (27-31); Mean Corpuscular Volume 90 fL (80-97); Mean Platelet Volume 7.7 fL (7.4-10.4); Platelet Count 154 10^3/uL (150-450); Red Cell Distribution Width 15 % (10-15); White Blood Count 10.7 10^3/uL (3.5-10.8)
[2018-12-10 06:42] LABS: Amylase 55 U/L (29-103)
[2018-12-10] MEDS ORDERED: Iodixanol* (CONTRAST) 320 MG/ML 100 ML SDV IV ONE (06:48)
--- NOTE | 2018-12-10 07:19 | ED ---
Progress - Progress Note Progress Note: Pt is a sign out from Dr. Kary Scott at 07:00 on 12/10/18 at shift change, pending abdomen/pelvis CT imaging results. Abdomen/Pelvic CT IMPRESSION: 1. Mild distention of loops of small bowel in the central abdomen. No bowel wall thickening or pneumatosis. Transition is not clear. The distal small bowel is of normal caliber. No abdominal mass. 2. Patient status post cholecystectomy. No distention of the common bile duct. No intrahepatic biliary distention. 3. Persistent presence of collateral vessels located in the subcutaneous tissues of the abdominal wall as well as dilated azygos and hemiazygos system in the upper abdomen lower thoracic cage. This is been noted on prior CT study of the abdomen and chest. 4. Larry catheter located in the bladder. Air is seen within the bladder lumen. This most likely related to the Larry catheter. Cannot exclude a cystitis with gas-forming organism. At 07:48, Dr. Smith who agrees to admit the pt [place] [facility] with a diagnosis of AMS and hyperglycemia. Pt will be admitted to [facility] with a diagnosis of AMS and hyperglycemia. - Results/Orders Results/Orders: Abdomen/Pelvic CT IMPRESSION: 1. Mild distention of loops of small bowel in the central abdomen. No bowel wall thickening or pneumatosis. Transition is not clear. The distal small bowel is of normal caliber. No abdominal mass. 2. Patient status post cholecystectomy. No distention of the common bile duct. No intrahepatic biliary distention. 3. Persistent presence of collateral vessels located in the subcutaneous tissues of the abdominal wall as well as dilated azygos and hemiazygos system in the upper abdomen lower thoracic cage. This is been noted on prior CT study of the abdomen and chest. 4. Larry catheter located in the bladder. Air is seen within the bladder lumen. This most likely related to the Larry catheter. Cannot exclude a cystitis with gas-forming organism. - EKG/XRAY/CT CT: Abdomen/Pelvic CT - Consult/PCP Time Called: 07:48 Consult/PCP: Dr. Bon Smith Consult Reason/Comments: At 07:48, Dr. Bynum who agrees to admit the pt to [facility] Re-Evaluation - Re-Evaluation First Eval Re-Evaluation Time: 05:39 Comment: While hooking up potassium, patient began to vomit. CT ABD/PEL to be obtained. Course/Dx - Diagnoses Provider Diagnoses: AMS (altered mental status), Hyperglycemia - Critical Care Time Critical Care Time: 75-104 min - 100 minutes CCT Discharge ED - Sign-Out/Discharge Documenting (check all that apply): Patient Departure - Admit, Receiving Sign- Out Receiving patient FROM: Kary Scott - 07:00 on 12/10/18 - Discharge Plan Condition: Stable Disposition: ADMITTED TO [facility] Referrals: Anila Saul MD [Primary Care Provider] - - Billing Disposition and Condition Condition: STABLE Disposition: Admitted to [facility] - Attestation Statements Document Initiated by Scribe: Yes Documenting Scribe: Lin Adames Provider For Whom Bishop is Documenting (Include Credential): Uzma Sutton MD Scribe Attestation: Lin Starks, scribed for Uzma Sutton MD on 12/10/18 at 0757. Scribe Documentation Reviewed: Yes Provider Attestation: The documentation as recorded by the Lin mayer accurately reflects the service I personally performed and the decisions made by Uzma collier MD Status of Scribe Document: Viewed
[2018-12-10] MEDS ORDERED: NS 0.9% 1000 ML** 1,000 ML IV SCH (08:30)
[2018-12-10] MEDS ORDERED: Insulin GLARGINE(*) 1 UNITS UNIT SUBCUT ONE (08:42)
[2018-12-10] MEDS ORDERED: Dextrose 50% VIAL 50 ml IV PUSH PRN (08:44)
[2018-12-10] MEDS ORDERED: Albuterol/Ipratropium NEB.SOL* Albuterol 2.5 MG/Ipratropium 0.5 MG 3 ML INH PRN (08:50)
[2018-12-10 09:02] LABS: Magnesium 1.8 mg/dL (1.9-2.7); Phosphorus 2.5 mg/dL (2.5-5.0)
[2018-12-10] MEDS: HYDROmorphone TAB* 4 MG PO PRN ×2 (10:45→20:37)
[2018-12-10] MEDS: Pantoprazole IV* 40 MG IV SCH (10:45)
[2018-12-10] MEDS: Baclofen TAB* 20 MG PO PRN ×2 (10:45→20:37)
[2018-12-10] MEDS: Potassium Chlor TAB* 10 MEQ TAB.ER PO SCH ×2 (10:45→20:25)
[2018-12-10] MEDS: Atenolol TAB* 25 MG PO SCH (10:46)
[2018-12-10] MEDS: Folic Acid TAB* 1 MG PO SCH (10:46)
[2018-12-10] MEDS: Insulin LISPRO* 1 UNITS UNIT SUBCUT SCH ×3 (13:10→21:51)
[2018-12-10] MEDS: Heparin VIAL(*) 5000 UNITS/ML VIAL (FIVE THOUSAND) SUBCUT SCH ×2 (13:10→20:25)
--- NOTE | 2018-12-10 19:30 | HP ---
CC: Dr. Anila Saul * HISTORY AND PHYSICAL: DATE OF ADMISSION: 12/10/18 PRIMARY CARE PROVIDER: Dr. Anila Saul. CHIEF COMPLAINT: Was sent to the emergency room for vomiting and altered mental status. HISTORY OF PRESENT ILLNESS: The patient was seen in the emergency room. She was sent to the ER after she pulled the cord in the bathroom calling for help. She was assisted to her room and then she went back again to the bathroom for her diarrhea and called the wilder again and finally they brought her to the ER. In the emergency room when I was contacted, I was notified that the patient was here due to altered mental status. On evaluation, she was fully awake, alert, oriented. She is calling the wilder. She has no symptoms of altered mentation whatsoever. She did have increased weakness. She states that she has been having increased diarrhea for the past 2 days, having difficulty keeping her oral foods by mouth. Of note, in the emergency room, her blood pressure at one time was as high as 215/116. On further history obtaining, the patient is on chronic Dilaudid. Apparently, she states she could not take her medication by mouth. She only was able to take it once yesterday, which possibly could explain her hypertension due to some withdrawal symptoms and also exacerbated some of her diarrhea as well; therefore, I elected to admit the patient under observational status with gentle IV fluids. I elected to keep her on Dilaudid p.o. to see if she can tolerate it with premedication with Zofran and if she does not tolerate her Dilaudid, we will place her on IV Dilaudid instead, but at this time, she seems much more stable with Zofran and IV fluids and she tolerated her first dose of Dilaudid after the Zofran in the ER. Blood pressure was repeated and has slowly come down to 169/90 and later on was down to 133/75. PAST MEDICAL HISTORY: 1. Diabetes. 2. Hyperlipidemia. 3. Hypertension. 4. SVC syndrome. 5. Asthma. 6. GERD. 7. Diverticulosis. 8. Back pain. 9. Degenerative joint disease. 10. History of migraine. PAST SURGICAL HISTORY: 1. Hysterectomy. 2. D and C. 3. Cataract. 4. Colon resection, status post colostomy in 1993 and reversal in 1994. 5. Cholecystectomy. MEDICATIONS: 1. Mirvaso 0.33% topical daily. 2. Bumex 2 mg b.i.d. 3. Vitamin B12 1000 IM monthly. 4. Artificial tears. 5. Estradiol 0.5 mg daily 6. Feraheme 30 mg IV weekly. 7. Dilaudid 8 mg q.3 p.r.n. 8. Liraglutide 50 units at bedtime. 9. Milk of mag 30 mL t.i.d. 10. Methotrexate 50 mg IM weekly. 11. Oxycodone 10 mg p.o. q.12. 12. topical cream. 13. Alpha-lipoic acid. 14. Preparation H b.i.d. topically. 15. Vitamin C 100 mg daily. 16. Astepro 2 sprays nasally twice a day. 17. Lotrisone cream b.i.d. 18. Dexilant 60 mg daily. 19. Jardiance 10 daily. 20. NovoLog 20 units at 1 p.m. 21. Ipratropium nasally 4 times a day. 22. Xyzal 10 mg daily. 23. Linzess 290 mcg daily. 24. Metformin 1000 b.i.d. 25. Flagyl topical cream twice a day. 26. [place] 1000 b.i.d. 27. Zofran 4 mg 4 times daily. 28. Sumatriptan 6 mg subcu daily as needed. 29. Imitrex 100 mg p.o. daily p.r.n. 30. Atenolol 25 daily. 31. Lipitor 5 mg at bedtime. 32. Baclofen 20 four times daily. 33. Folic acid 1 mg daily. ALLERGIES: Multiple listed including MORPHINE, TIZANIDINE, TRICYCLIC COMPOUNDS. FAMILY HISTORY: Mother had history of CHF and father had stomach cancer. SOCIAL HISTORY: She lives alone. 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 Quit tobacco use. No illicit drug use. REVIEW OF SYSTEMS: Limited to HPI, otherwise unremarkable. PHYSICAL EXAMINATION GENERAL: She is awake, alert, oriented, follows simple commands. VITAL SIGNS: On presentation, 160/94 and was up to 213/116, started on her oral narcotic Dilaudid, blood pressure is down to 133/75; temperature 98.2; pulse 61; respiratory rate 20. HEENT: Head and Neck: Normocephalic, atraumatic. Dry oral mucosa. LUNGS: Clear to auscultation bilaterally. CARDIOVASCULAR: S1, S2. Regular rate and rhythm. ABDOMEN: Soft. No tenderness. No rebound. EXTREMITIES: No pedal edema. DIAGNOSTIC STUDIES/LAB DATA: CBC: White count 10.7, hemoglobin 16, hematocrit 47, platelets 154. Chemistry: Sodium 136, potassium 3.6, chloride 104, BUN 14, creatinine 0.8, sugar 457, calcium 9.4, lactic acid 0.8. AST 19, ALT 21, total bili 0.8, amylase 55, lipase 96. CT head shows no acute disease. CT abdomen: Questionable dilation, ileus. No transition or evidence of bowel obstruction. EKG: Normal sinus rhythm, pulse 76, DC 169, QRS 83, QTc [address]-T wave changes. IMPRESSION AND PLAN: Generally, she is a 68-year-old female who comes in with nausea, vomiting and decreased oral intake, was altered and elevated blood pressure on presentation. She will be admitted for nausea, vomiting, possible ileus versus gastroparesis given her narcotic and diabetes, exacerbated by inability to keep her oral narcotic causing nausea, vomiting and diarrhea; therefore, she will be admitted in medical service under observation. We will start her on IV fluids normal saline at 100 cc an hour. Zofran p.r.n. Protonix [address] her on clear liquid that can be advanced tomorrow as tolerated. For her chronic opioid dependency which probably exacerbated her blood pressure , diarrhea and vomiting as she was not able to tolerate them, I am going to premedicate her with Zofran, give her Dilaudid. We will keep her by mouth to make sure if she tolerates by mouth then she can be discharged tomorrow. If I was to put her on Dilaudid IV, then we will need to try oral therapy tomorrow before deciding on whether or not she can be discharged. For now, we will put her on Dilaudid and to call us if she is not able to tolerate the p.o. Given her history of vomiting, I am going to obtain chest x-ray to rule out aspiration. I am going to hold her Bumex. I am going to hold off on starting antibiotics for now. We will repeat her chemistry and follow up final report of the chest x-ray and monitor for any fever before committing her on any antibiotics. For her hypertensive urgency, blood pressure was 213/116, I think this is probably withdrawal, we will premedicate with Zofran and opioid, follow blood pressure and resume her atenolol at home. Continue the remaining of her medications otherwise uninterrupted with the exception of placing her on sliding scale and lower her insulin to Lantus 12 units only as she is going to be on clear liquid diet only. DVT prophylaxis: Heparin 5000 q.8 hours. [id number]/[facility] #: [id number] TIKI
[2018-12-10] MEDS: Atorvastatin* 10 MG TAB PO SCH (20:24)
[2018-12-10] MEDS: Acetaminophen TAB* 325 MG PO PRN (20:26)
[2018-12-10] MEDS: Insulin GLARGINE(*) 1 UNITS UNIT SUBCUT SCH (21:50)
[2018-12-11] MEDS: Acetaminophen TAB* 325 MG PO PRN ×2 (01:00→11:32)
[2018-12-11] MEDS: HYDROmorphone TAB* 4 MG PO PRN ×4 (01:00→21:24)
[2018-12-11] MEDS: Baclofen TAB* 20 MG PO PRN (05:30)
[2018-12-11] MEDS: Heparin VIAL(*) 5000 UNITS/ML VIAL (FIVE THOUSAND) SUBCUT SCH ×3 (05:32→21:25)
[2018-12-11 05:35] LABS: Hematocrit 44 % (35-47); Hemoglobin 14.9 g/dL (12.0-16.0); Mean Corpuscular HGB Conc 34 g/dL (31-36); Mean Corpuscular Hemoglobin 31 pg (27-31); Mean Corpuscular Volume 91 fL (80-97); Mean Platelet Volume 7.4 fL (7.4-10.4); Platelet Count 172 10^3/uL (150-450); Red Blood Count 4.82 10^6 /uL (3.70-4.87); Red Cell Distribution Width 14 % (10-15); White Blood Count 10.4 10^3/uL (3.5-10.8)
[2018-12-11 05:40] LABS: ABS Eosinophils 0.2 10^3/ul (0-0.6); ABS Lymphocytes 5.3 10^3/ul (1.0-4.8); ABS Monocytes 0.8 10^3/ul (0-0.8); ABS Neutrophils 4.1 10^3/ul (1.5-7.7); Eosinophil % 2.1 %; Lymphocyte % 50.8 %; Nucleated Red Blood Cells % 0.2
[2018-12-11 05:52] LABS: Albumin 3.1 g/dL (3.2-5.2); Albumin/Globulin Ratio 1.1 (1-3); BUN/Creatinine Ratio 14.9 (8-20); Calcium 8.7 mg/dL (8.6-10.3); EGFR African American 93.9 (>60); EGFR Non-African American 77.6 (>60); Globulin 2.7 g/dL (2-4); Indirect Bilirubin 0.6 mg/dL (0.3-1.0); Magnesium 1.9 mg/dL (1.9-2.7); Phosphorus 3.6 mg/dL (2.5-5.0); Potassium 3.7 mmol/L (3.5-5.0); Total Bilirubin 0.7 mg/dL (0.2-1.0); Total Protein 5.8 g/dL (6.4-8.9)
[2018-12-11 06:14] LABS: TSH (Thyroid Stimulating Horm) 1.13 mcIU/mL (0.34-5.60)
[2018-12-11] MEDS: Insulin LISPRO* 1 UNITS UNIT SUBCUT SCH ×4 (09:42→21:25)
[2018-12-11] MEDS: Potassium Chlor TAB* 10 MEQ TAB.ER PO SCH ×2 (10:20→21:23)
[2018-12-11] MEDS: Folic Acid TAB* 1 MG PO SCH (10:20)
[2018-12-11] MEDS: Pantoprazole IV* 40 MG IV SCH (10:20)
[2018-12-11] MEDS: Atenolol TAB* 25 MG PO SCH (10:20)
[2018-12-11 10:27] LABS: C Reactive Protein 4.62 mg/L (<8.01)
[2018-12-11] MEDS: SUMAtriptan SQ* 6 MG/0.5 ML VIAL SUBCUT PRN ×2 (11:31→23:59)
[2018-12-11] MEDS: Atorvastatin* 10 MG TAB PO SCH (21:22)
[2018-12-11] MEDS: Cetirizine* 10 MG TAB PO PRN (21:23)
[2018-12-11] MEDS: Insulin GLARGINE(*) 1 UNITS UNIT SUBCUT SCH (21:25)
[2018-12-12] MEDS: HYDROmorphone TAB* 4 MG PO PRN ×5 (01:22→21:50)
[2018-12-12] MEDS: Acetaminophen TAB* 325 MG PO PRN ×3 (03:05→22:29)
[2018-12-12] MEDS: Baclofen TAB* 20 MG PO PRN ×3 (03:05→13:50)
[2018-12-12] MEDS: Heparin VIAL(*) 5000 UNITS/ML VIAL (FIVE THOUSAND) SUBCUT SCH ×3 (05:25→21:52)
[2018-12-12 06:31] LABS: ABS Eosinophils 0.3 10^3/ul (0-0.6); ABS Lymphocytes 4.3 10^3/ul (1.0-4.8); ABS Monocytes 0.7 10^3/ul (0-0.8); ABS Neutrophils 3.1 10^3/ul (1.5-7.7); Eosinophil % 3.1 %; Hematocrit 43 % (35-47); Hemoglobin 15.4 g/dL (12.0-16.0); Mean Corpuscular HGB Conc 35 g/dL (31-36); Mean Corpuscular Hemoglobin 32 pg (27-31); Mean Corpuscular Volume 90 fL (80-97); Mean Platelet Volume 7.6 fL (7.4-10.4); Nucleated Red Blood Cells % 0.1; Platelet Count 162 10^3/uL (150-450); Red Blood Count 4.84 10^6 /uL (3.70-4.87); Red Cell Distribution Width 14 % (10-15); White Blood Count 8.3 10^3/uL (3.5-10.8)
[2018-12-12 06:45] LABS: BUN/Creatinine Ratio 10.6 (8-20); C Reactive Protein 2.14 mg/L (<8.01); Calcium 8.5 mg/dL (8.6-10.3); EGFR African American 107.1 (>60); EGFR Non-African American 88.5 (>60); Potassium 3.8 mmol/L (3.5-5.0)
[2018-12-12] MEDS: Insulin LISPRO* 1 UNITS UNIT SUBCUT SCH ×4 (08:44→21:53)
[2018-12-12] MEDS: Potassium Chlor TAB* 10 MEQ TAB.ER PO SCH ×2 (08:45→21:48)
[2018-12-12] MEDS: Folic Acid TAB* 1 MG PO SCH (08:45)
[2018-12-12] MEDS: Pantoprazole IV* 40 MG IV SCH (08:45)
[2018-12-12] MEDS: Atenolol TAB* 25 MG PO SCH (08:46)
[2018-12-12] MEDS: Pantoprazole TAB * 40 MG TAB PO SCH (09:35)
[2018-12-12] MEDS: SUMAtriptan SQ* 6 MG/0.5 ML VIAL SUBCUT PRN (12:20)
[2018-12-12] MEDS: Ondansetron INJ* 2 MG/ML VIAL IV PRN ×2 (16:45→21:52)
[2018-12-12] MEDS: Cetirizine* 10 MG TAB PO PRN (21:51)
[2018-12-12] MEDS: Atorvastatin* 10 MG TAB PO SCH (21:51)
[2018-12-12] MEDS: Insulin GLARGINE(*) 1 UNITS UNIT SUBCUT SCH (21:52)
[2018-12-12] MEDS: diPHENhydraMINE LIQ* 12.5 MG/5 ML UDC PO PRN (22:38)
[2018-12-13] MEDS: SUMAtriptan SQ* 6 MG/0.5 ML VIAL SUBCUT PRN ×2 (00:04→17:10)
[2018-12-13] MEDS: HYDROmorphone TAB* 4 MG PO PRN ×5 (02:45→22:50)
[2018-12-13] MEDS: Baclofen TAB* 20 MG PO PRN ×3 (02:46→18:45)
[2018-12-13] MEDS: Heparin VIAL(*) 5000 UNITS/ML VIAL (FIVE THOUSAND) SUBCUT SCH ×3 (06:11→21:36)
[2018-12-13] MEDS: Pantoprazole TAB * 40 MG TAB PO SCH (07:57)
[2018-12-13] MEDS: Folic Acid TAB* 1 MG PO SCH (07:57)
[2018-12-13] MEDS: Atenolol TAB* 25 MG PO SCH (07:58)
[2018-12-13] MEDS: Potassium Chlor TAB* 10 MEQ TAB.ER PO SCH ×2 (07:58→21:36)
[2018-12-13] MEDS: Insulin LISPRO* 1 UNITS UNIT SUBCUT SCH ×4 (08:05→21:36)
[2018-12-13] MEDS: Lisinopril TAB* 10 MG PO SCH (11:30)
[2018-12-13] MEDS: Atorvastatin* 10 MG TAB PO SCH (21:35)
[2018-12-13] MEDS: Insulin GLARGINE(*) 1 UNITS UNIT SUBCUT SCH (21:37)
[2018-12-13] MEDS: Acetaminophen TAB* 325 MG PO PRN (21:43)
[2018-12-14] MEDS: Ondansetron INJ* 2 MG/ML VIAL IV PRN ×3 (00:20→21:41)
[2018-12-14] MEDS: SUMAtriptan SQ* 6 MG/0.5 ML VIAL SUBCUT PRN ×2 (00:36→20:53)
[2018-12-14] MEDS: diPHENhydraMINE LIQ* 12.5 MG/5 ML UDC PO PRN (02:21)
[2018-12-14] MEDS: Baclofen TAB* 20 MG PO PRN ×3 (02:21→17:09)
[2018-12-14] MEDS: HYDROmorphone TAB* 4 MG PO PRN ×5 (03:42→21:41)
[2018-12-14] MEDS: Heparin VIAL(*) 5000 UNITS/ML VIAL (FIVE THOUSAND) SUBCUT SCH ×3 (06:19→21:41)
[2018-12-14] MEDS: Insulin LISPRO* 1 UNITS UNIT SUBCUT SCH ×4 (08:12→20:54)
[2018-12-14] MEDS: Folic Acid TAB* 1 MG PO SCH (08:13)
[2018-12-14] MEDS: Pantoprazole TAB * 40 MG TAB PO SCH (08:13)
[2018-12-14] MEDS: Atenolol TAB* 25 MG PO SCH (08:14)
[2018-12-14] MEDS: Potassium Chlor TAB* 10 MEQ TAB.ER PO SCH ×2 (08:14→20:55)
[2018-12-14] MEDS: Lisinopril TAB* 10 MG PO SCH (08:14)
[2018-12-14] MEDS: Acetaminophen TAB* 325 MG PO PRN (11:30)
[2018-12-14] MEDS: Magnesium Hydroxide LIQ* 30 ML UDC PO PRN ×2 (12:30→20:55)
[2018-12-14] MEDS: Insulin GLARGINE(*) 1 UNITS UNIT SUBCUT SCH (20:54)
[2018-12-14] MEDS: Atorvastatin* 10 MG TAB PO SCH (20:55)
[2018-12-15] MEDS ORDERED: diPHENhydraMINE LIQ* 12.5 MG/5 ML UDC PO PRN (02:00)
[2018-12-15] MEDS: HYDROmorphone TAB* 4 MG PO PRN ×5 (02:02→21:24)
[2018-12-15] MEDS: Ondansetron INJ* 2 MG/ML VIAL IV PRN ×2 (05:03→08:48)
[2018-12-15] MEDS: SUMAtriptan SQ* 6 MG/0.5 ML VIAL SUBCUT PRN ×2 (05:05→20:28)
[2018-12-15] MEDS: Heparin VIAL(*) 5000 UNITS/ML VIAL (FIVE THOUSAND) SUBCUT SCH ×3 (05:06→21:24)
[2018-12-15] MEDS: Acetaminophen TAB* 325 MG PO PRN (05:09)
[2018-12-15] MEDS: Atenolol TAB* 25 MG PO SCH (08:04)
[2018-12-15] MEDS: Folic Acid TAB* 1 MG PO SCH (08:04)
[2018-12-15] MEDS: Potassium Chlor TAB* 10 MEQ TAB.ER PO SCH ×2 (08:04→20:28)
[2018-12-15] MEDS: Insulin LISPRO* 1 UNITS UNIT SUBCUT SCH ×7 (08:04→17:49)
[2018-12-15] MEDS: Pantoprazole TAB * 40 MG TAB PO SCH (08:04)
[2018-12-15] MEDS: Lisinopril TAB* 10 MG PO SCH (08:04)
[2018-12-15] MEDS: Magnesium Hydroxide LIQ* 30 ML UDC PO PRN ×2 (09:19→12:14)
--- NOTE | 2018-12-15 09:41 | PN ---
Subjective - Subjective Reason for Note: Progress Note History: Keila Brown was feeling well when Dr. Anila Saul rounded on her yesterday. She had walked [place], her headache and body pain was gone. After lunch yesterday they returned. She reports she developed a migraine headache and she had body aches all over. Aside, from this exacerbation , her main symptom is 4 days of constipation. She was hyperglycemic yesterday (169 - 312 mg/dl). Her blood pressure is at target. She denies any chest pain. 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, E11.65 Current Medications: Current Medications Acetaminophen (Tylenol Tab*) 975 mg PO Q4H PRN PRN Reason: PAIN - MODERATE Last Admin: 12/15/18 05:09 Dose: 975 mg Albuterol/Ipratropium (Duoneb (Albuterol 2.5 Mg/Ipratropium 0.5 Mg)) 1 neb INH Q2H PRN PRN Reason: SOB/WHEEZING Atenolol (Tenormin Tab*) 25 mg PO DAILY PETER Last Admin: 12/15/18 08:04 Dose: 25 mg Atorvastatin Calcium (Lipitor*) 5 mg PO BEDTIME PETER Last Admin: 12/14/18 20:55 Dose: 5 mg Baclofen (Lioresal Tab*) 20 mg PO QID PRN PRN Reason: PAIN Last Admin: 12/14/18 17:09 Dose: 20 mg Cetirizine HCl (Zyrtec*) 10 mg PO Q12H PRN PRN Reason: ALLERGIES Last Admin: 12/12/18 21:51 Dose: 10 mg Dextrose (Dextrose 50% Vial 50 Ml*) 25 ml IV PUSH .FOR FS < 60 - SS PRN PRN Reason: FS < 60 Diphenhydramine HCl (Benadryl Liq*) 25 mg PO 2100 PRN PRN Reason: INSOMNIA Folic Acid (Folvite Tab*) 1 mg PO DAILY WITH MEAL [facility] Last Admin: 12/15/18 08:04 Dose: 1 mg Heparin Sodium (Porcine) (Heparin Vial(*)) 5,000 units SUBCUT Q8HR [facility] Last Admin: 12/15/18 05:06 Dose: 5,000 units Hydromorphone HCl (Dilaudid Tab*) 8 mg PO Q4H PRN PRN Reason: PAIN - SEVERE Last Admin: 12/15/18 08:04 Dose: 8 mg Insulin Glargine (Lantus(*)) 16 units SUBCUT BEDTIME [facility] Last Admin: 12/14/18 20:54 Dose: 16 units Insulin Human Lispro (Humalog*) 0 units SUBCUT ACHS [facility]; Protocol Last Admin: 12/15/18 08:04 Dose: 2 units Lisinopril (Prinivil Tab*) 10 mg PO DAILY [facility] Last Admin: 12/15/18 08:04 Dose: 10 mg Magnesium Hydroxide (Milk Of Magnesia Liq*) 30 ml PO Q2H PRN PRN Reason: CONSTIPATION Last Admin: 12/15/18 09:19 Dose: 30 ml Ondansetron HCl (Zofran Inj*) 4 mg IV Q4H PRN PRN Reason: NAUSEA/VOMITING Last Admin: 12/15/18 08:48 Dose: 4 mg Pantoprazole Sodium (Protonix Tab*) 40 mg PO DAILY [facility] Last Admin: 12/15/18 08:04 Dose: 40 mg Potassium Chloride (Klor Con Er Tab*) 10 meq PO BID [facility] Last Admin: 12/15/18 08:04 Dose: 10 meq Sumatriptan Succinate (Imitrex Sq*) 6 mg SUBCUT .SEE DIRECTIONS PRN PRN Reason: MIGRAINE HEADACHE Last Admin: 12/15/18 05:05 Dose: 6 mg - Review of Systems Constitutional Symptoms: Yes: Fatigue, No: Fever, Night Sweats Eyes: Positive: Change in Vision - with migraine Pulmonary: Negative: Cough, Sputum, Respiratory Distress, Shortness of Breath Cardiology: Positive: Swelling of Ankles - slight Negative: Chest Pain, Palpitations Gastroenterology: Positive: Nausea - she ate b'fast after ondansetron, Constipation Negative: Abdominal Pain, Vomiting Genital - Urinary: Negative: Dysuria Neurology: Positive: Headache, Change in Vision, Dizziness Home Medications: Home Medications Medication Instructions Recorded Confirmed Type metFORMIN* [Glucophage 1000 MG TAB 1,000 mg PO BID 03/31/13 12/10/18 History *] Dexlansoprazole (NF) [Dexilant 60 mg PO DAILY 07/29/14 12/10/18 History (NF)] Linaclotide (NF) [Linzess (NF)] 290 mcg PO QAM 07/29/14 12/10/18 History Ondansetron TAB* [Zofran 4 MG Tab*] 4 mg SL QID PRN 07/29/14 12/10/18 History LevoCETirizine TAB (NF) [Xyzal TAB 5 mg PO DAILY 01/27/15 12/10/18 History (NF)] Azelastine 0.15% NASAL(NF) 2 spray BOTH NARES BID 03/02/15 12/10/18 History [Astepro 0.15% NASAL (NF)] Folic Acid TAB* [Folvite TAB*] 1 mg PO DAILY WITH MEAL 10/06/16 12/10/18 History HYDROmorphone TAB(NF) [Dilaudid 8 mg PO Q3HR MDD 56 mg 01/17/17 12/10/18 History TAB(NF)] Ipratropium Br (Nf)0.03% Nasal 1 spray BOTH NARES QID PRN 01/17/17 12/10/18 History [Ipratropium [place]] [place]-3 Fatty Acids (Nf) [Fish Oil 1,000 mg PO BID 01/17/17 12/10/18 History (NF)] Alpha Lipoic Acid 600 mg PO DAILY 05/21/17 12/10/18 History SUMAtriptan TAB* [Imitrex TAB*] 100 mg PO DAILY PRN 05/21/17 12/10/18 History Ascorbic Acid TAB* [Vitamin C 100 mg PO DAILY 05/31/17 12/10/18 History TAB*] Atorvastatin* [Lipitor 10 MG*] 5 mg PO BEDTIME 08/10/17 12/10/18 History Baclofen TAB* [Lioresal TAB*] 20 mg PO QID PRN 08/10/17 12/10/18 History Clobetasol 0.05% OINT* 1 applic TOPICAL BID MDD 2 weeks 08/10/17 12/10/18 History Clotrimazole/Betamethasone* 1 applic TOPICAL BID MDD 2 weeks 08/10/17 12/10/18 History [Lotrisone Cream*] Metronidazole (TOPICAL)(NF) 1 applic TOPICAL BID PRN 08/10/17 12/10/18 History [Metrocream (NF)] Milk Thistle 1,000 mg PO DAILY 08/10/17 12/10/18 History SUMAtriptan SQ* [Imitrex SQ*] 6 mg SUBCUT DAILY PRN 08/10/17 12/10/18 History Potassium Chlor TAB (NF) 10 meq PO BID 11/20/17 12/10/18 History [Kaon-Cl-10 TAB (NF)] Empaglifozin (NF) [Jardiance (Nf)] 10 mg PO DAILY 10/23/18 12/10/18 History Insulin ASPART (NF) [Novolog (NF)] 20 unit SC 1300 10/23/18 12/10/18 History Insulin Degludec/Liraglutide 50 units SC BEDTIME 10/23/18 12/10/18 History [Xultophy 100 Unit-3.6MG/ml Pen] Atenolol TAB* [Tenormin TAB* 25 MG] 25 mg PO DAILY #30 tab 10/30/18 12/10/18 Rx Bumetanide TAB* [Bumex 2 MG TAB*] 5 mg PO BID #0 10/30/18 12/10/18 Rx HYDROmorphone TAB* [Dilaudid Tab*] 8 mg PO Q3H PRN tab 10/30/18 12/10/18 Rx Brimonidine Tartrate [Mirvaso] 0.33 % TOPICAL DAILY 12/10/18 12/10/18 History Bumetanide TAB* [Bumex 2 MG TAB*] 2 mg PO BID 12/10/18 12/10/18 History Cyanocobalamin INJ * [Vitamin B12 1,000 mcg IM MONTHLY 12/10/18 12/10/18 History INJ *] Dextran 70/Hypromellose Tears 1 drop BOTH EYES DAILY PRN 12/10/18 12/10/18 History [Natural Balance Tears 70.01-0.3 %] Estradiol (NF) 0.5 mg PO DAILY 12/10/18 12/10/18 History Estradiol TAB(NF) 1 mg PO DAILY 12/10/18 12/10/18 History Ferumoxytol(NF) [Feraheme(NF)] 30 mg IV WEEKLY 12/10/18 12/10/18 History HYDROmorphone TAB(NF) [Dilaudid 8 mg PO Q4HR PRN 12/10/18 12/10/18 History TAB(NF)] Insulin Degludec/Liraglutide 50 units SUBCUT DAILY 12/10/18 12/10/18 History [Xultophy 100 Unit-3.6MG/ml Pen] Magnesium Hydroxide LIQ* [Milk of 30 ml PO TID PRN 12/10/18 12/10/18 History Magnesia LIQ*] Proctosol Hc 2.5% Topical Cream 1 applic TOPICAL BID 12/10/18 12/10/18 History metHOTREXate sodium [Methotrexate] 50 mg INJ WEEKLY 12/10/18 12/10/18 History oxyCODONE SR TAB(*) [Oxycontin 10 10 mg PO Q12HR 12/10/18 12/10/18 History mg (*)] Allergies: Allergies Allergy/AdvReac Type Severity Reaction Status Date / Time methylparaben Allergy Intermediate Pain Verified 12/10/18 02:18 morphine Allergy Intermediate Hallucinati Verified 12/10/18 02:18 ons tizanidine Allergy Intermediate Swelling Verified 12/10/18 02:18 Of Face,Lips,& Throat Tricyclic Compounds Allergy Intermediate Altered Verified 12/10/18 02:18 Mental Status diphenhydramine Allergy Mild See Comment Verified 12/12/18 22:03 hydromorphone Allergy Mild See Comment Verified 12/10/18 02:18 itraconazole Allergy Mild Rash Verified 12/10/18 02:18 lanolin Allergy Mild Rash Verified 12/10/18 02:18 milnacipran Allergy Mild Rash And Verified 12/10/18 02:18 Itching mometasone furoate Allergy Mild Headache Verified 12/10/18 02:18 naloxone Allergy Mild Headache Verified 12/10/18 02:18 ondansetron Allergy Mild Headache Verified 12/10/18 02:18 oxycodone Allergy Mild Palpitation Verified 12/10/18 02:18 s oxymorphone Allergy Mild Palpitation Verified 12/10/18 02:18 s Penicillins Allergy Mild Rash Verified 12/10/18 02:18 pentazocine Allergy Mild Palpitation Verified 12/10/18 02:18 s propoxyphene Allergy Mild Rash Verified 12/10/18 02:18 sulfasalazine Allergy Mild Rash Verified 12/10/18 02:18 talc Allergy Mild Rash Verified 12/10/18 02:18 tramadol Allergy Mild Muscle Ache Verified 12/10/18 02:18 trazodone Allergy Mild Insomnia Verified 12/10/18 02:18 Adhesive Tape Allergy Unknown Unknown Verified 12/10/18 02:18 Reaction Details alprazolam Allergy Unknown Unknown Verified 12/10/18 02:18 Reaction Details aspirin Allergy Unknown Unknown Verified 12/10/18 02:18 Reaction Details cefaclor Allergy Unknown Unknown Verified 12/10/18 02:18 Reaction Details clarithromycin Allergy Unknown Unknown Verified 12/10/18 02:18 Reaction Details codeine Allergy Unknown Unknown Verified 12/10/18 02:18 Reaction Details diazepam Allergy Unknown Unknown Verified 12/10/18 02:18 Reaction Details doxycycline Allergy Unknown Unknown Verified 12/10/18 02:18 Reaction Details duloxetine Allergy Unknown Unknown Verified 12/10/18 02:18 Reaction Details fentanyl Allergy Unknown See Comment Verified 12/10/18 02:18 fluoxetine Allergy Unknown Unknown Verified 12/10/18 02:18 Reaction Details gabapentin Allergy Unknown See Comment Verified 12/10/18 02:18 hydroxychloroquine Allergy Unknown Unknown Verified 12/10/18 02:18 Reaction Details paroxetine Allergy Unknown Unknown Verified 12/10/18 02:18 Reaction Details adhesive Allergy Blisters Verified 12/10/18 02:18 apple Allergy Anaphylatic Verified 12/10/18 02:18 Shock black pepper Allergy Hives/Diff. Verified 12/10/18 02:18 Breathing/I tching Bleach (Sodium Hypochlorite) Allergy Unknown Verified 12/10/18 02:18 Reaction Details capsaicin Allergy Unknown Verified 12/10/18 02:18 Reaction Details cigarette smoke Allergy Difficulty Verified 12/10/18 02:18 Breathing Corticosteroids Allergy Unknown Verified 12/10/18 02:18 (Glucocorticoids) Reaction Details melon Allergy Anaphylatic Verified 12/10/18 02:18 Shock mupirocin Allergy Unknown Verified 12/10/18 02:18 Reaction Details NSAIDS (Non-Steroidal Allergy Unknown Verified 12/10/18 02:18 Anti-Inflamma Reaction Details onion Allergy Hives/Diff. Verified 12/10/18 02:18 Breathing/I tching pepper (genus Capsicum) Allergy Unknown Verified 12/10/18 02:18 Reaction Details tapentadol [From Nucynta] Allergy Unknown Verified 12/10/18 02:18 Reaction Details lettuce AdvReac Stomach Verified 12/10/18 02:18 Cramps VINEGAR Allergy Intermediate TROUBLE Uncoded 12/10/18 02:18 BREATHING ENVRIONMENTAL Allergy Mild Sneezing Uncoded 12/10/18 02:18 BANDAIDS AdvReac Mild Blisters Uncoded 12/10/18 02:18 Objective - Vital Signs Vital Signs: Vital Signs 12/14/18 12/14/18 12/14/18 10:05 12:04 12:32 Temperature 97.8 F Pulse Rate Respiratory 17 18 18 Rate Blood Pressure 118/53 (mmHg) O2 Sat by Pulse 97 Oximetry 12/14/18 12/14/18 12/14/18 15:01 15:28 17:09 Temperature 97.2 F Pulse Rate 55 Respiratory 17 18 17 Rate Blood Pressure 129/65 (mmHg) O2 Sat by Pulse 98 Oximetry 12/14/18 12/14/18 12/14/18 18:48 19:10 20:36 Temperature 98.1 F Pulse Rate 63 Respiratory 18 18 18 Rate Blood Pressure 119/59 (mmHg) O2 Sat by Pulse 98 Oximetry 12/14/18 12/14/18 12/14/18 21:41 23:40 23:41 Temperature 98.3 F Pulse Rate 59 Respiratory 18 20 18 Rate Blood Pressure 134/84 (mmHg) O2 Sat by Pulse 98 Oximetry 12/15/18 12/15/18 12/15/18 02:02 07:24 08:00 Temperature 97.8 F Pulse Rate 58 Respiratory 18 20 18 Rate Blood Pressure 123/60 (mmHg) O2 Sat by Pulse 97 Oximetry 12/15/18 08:04 Temperature Pulse Rate Respiratory 17 Rate Blood Pressure (mmHg) O2 Sat by Pulse Oximetry - Intake and Output Intake and Output: Intake & Output 12/12/18 12/13/18 12/14/18 12/15/18 11:59 11:59 11:59 11:59 Intake Total 6592 737 6608 1010 Output Total 825 0 0 0 Balance 887 479 7955 1010 Intake: Oral 9882 095 9036 1010 Output: Urine 500 0 0 0 Larry 325 Other: Estimated Void Medium Medium # Bowel Movements 1 Estimated Stool Amount Medium Small # Voids 4 ADLs: Meal Record Start: 12/10/18 09: 12 Freq: DAILY@0900,1400,1800 Status: Active Protocol: Created 12/10/18 09:12 System (Rec: 12/10/18 09:12 System [facility]- [id number]) Document 12/10/18 14:00 [id number] (Rec: 12/10/18 14:15 [id number] TELE-C07) Document 12/10/18 18:00 [id number] (Rec: 12/10/18 18:19 [id number] TELE-C05) Document 12/11/18 09:00 [id number] (Rec: 12/11/18 10:56 [id number] TELE-M03) Document 12/11/18 13:19 [id number] (Rec: 12/11/18 13:21 [id number] TELE-C13) Document 12/11/18 18:00 [id number] (Rec: 12/11/18 21:01 [id number] TELE-C13) Document 12/12/18 09:00 [id number] (Rec: 12/12/18 13:56 [id number] TELE-C13) Document 12/12/18 13:56 [id number] (Rec: 12/12/18 13:57 [id number] TELE-C13) Document 12/12/18 18:00 [id number] (Rec: 12/12/18 18:52 [id number] TELE-C01) Document 12/13/18 09:00 [id number] (Rec: 12/13/18 09:33 [id number] TELE-C08) Document 12/13/18 14:00 [id number] (Rec: 12/13/18 14:02 [id number] TELE-C08) Document 12/13/18 18:00 [id number] (Rec: 12/13/18 18:37 [id number] TELE-C13) Document 12/14/18 09:00 [id number] (Rec: 12/14/18 10:37 [id number] TELE-C07) Document 12/14/18 14:00 [id number] (Rec: 12/14/18 14:28 [id number] TELE-C10) Intake and Output Start: 12/10/18 02: 17 Freq: Status: Active Protocol: Created 12/10/18 02:17 System (Rec: 12/10/18 02:17 System [id number]) Document 12/11/18 06:00 [id number] (Rec: 12/11/18 06:37 [id number] TELE-C05) Intake and Output Start: 12/10/18 09: 12 Freq: DAILY@0600,1400,2200 Status: Active Protocol: Created 12/10/18 09:12 System (Rec: 12/10/18 09:12 System [facility]- [id number]) Document 12/10/18 13:17 [id number] (Rec: 12/10/18 13:17 [id number] [facility]- [id number]) Document 12/10/18 14:00 [id number] (Rec: 12/10/18 14:19 [id number] TELE-C07) Document 12/10/18 22:00 [id number] (Rec: 12/10/18 22:17 [id number] TELE-C05) Document 12/11/18 05:14 [id number] (Rec: 12/11/18 05:14 [id number] TELE-C03) Document 12/11/18 05:37 [id number] (Rec: 12/11/18 05:37 [id number] TELE-M21) Document 12/11/18 06:00 [id number] (Rec: 12/11/18 06:37 [id number] TELE-C05) Document 12/11/18 12:09 [id number] (Rec: 12/11/18 12:09 [id number] MED-M01) Document 12/11/18 13:21 [id number] (Rec: 12/11/18 13:23 IIT3409 TELE-C13) Document 12/11/18 21:31 [id number] (Rec: 12/11/18 21:33 [id number] TELE-C13) Document 12/12/18 06:00 [id number] (Rec: 12/12/18 06:33 ZWA1626 TELE-C11) Document 12/12/18 13:57 [id number] (Rec: 12/12/18 13:57 [id number] TELE-C13) Document 12/12/18 21:09 [id number] (Rec: 12/12/18 21:16 [id number] TELE-C03) Document 12/13/18 06:00 [id number] (Rec: 12/13/18 06:19 [id number] TELE-C10) Document 12/13/18 14:00 [id number] (Rec: 12/13/18 14:10 [id number] TELE-C08) Document 12/13/18 14:00 [id number] (Rec: 12/13/18 14:06 [id number] TELE-C05) Document 12/13/18 22:00 [id number] (Rec: 12/13/18 22:22 [id number] TELE-C13) Document 12/14/18 05:58 [id number] (Rec: 12/14/18 05:59 [id number] TELE-C13) Document 12/14/18 14:00 [id number] (Rec: 12/14/18 14:21 [id number] TELE-C05) Document 12/14/18 21:47 [id number] (Rec: 12/14/18 21:48 [id number] TELE-M12) Document 12/15/18 06:00 [id number] (Rec: 12/15/18 07:06 [id number] TELE-C11) - Physical Exam General Physical Exam Comment: Warm and well perfused, sitting in a cardiac chair. She is fully oriented and has normal speech. She is not in any acute distress. General: No Cyanosis, No Anemia, No Jaundice, No Clubbing Endocrine: Yes Central Obesity, No Virilism, No Acromegaly, No Vitiligo, No Flushing, No Acanthosis nigricans, No Violaceious striae, No [place] Syndrome Lungs and Chest: Yes: Chest Expansion Full, Chest Expansion Symetrica, Percussion Note Resonant, Vessicular Breath Sounds. No: Crackles, Wheezes Heart Rate and Rhythm: Regular Additional Cardiovascular: Yes: Normal Heart Sounds. No: Heart Murmur, Pedal Edema Abdominal Exam: Yes: Soft, Bowel Sounds Present. No: Distention - obese, Rigidity, Abdominal Tenderness, Guarding - Extremities Cranial Nerves II-XII Intact: Yes Limbs: Normal Power, Normal Tone, Normal Coordination - finger nose/rapid alt. movts/fine finger movts - Neuro Orientation: A/O x3 Psychiatric: Normal, Anxious Speech: Normal Results - Results Lab Results: Laboratory Results - last 24 hr 12/14/18 12/14/18 12/14/18 11:23 16:36 20:06 POC Glucose (mg/dL) 261 H 296 H Glucose Meter Confirm 312 H 12/15/18 07:18 POC Glucose (mg/dL) 193 H Glucose Meter Confirm Assessment - Problem List Assessment: Patient Problems Accelerated hypertension (Acute) Chronic pain syndrome (Acute) Constipation (Acute) Migraine (Acute) Arthritis (Chronic) Autoimmune disease (Chronic) Diverticulosis (Chronic) Fibromyalgia (Chronic) GERD (gastroesophageal reflux disease) (Chronic) History of cholecystectomy (Chronic) Multiple drug allergies (Chronic) Opioid dependence (Chronic) Polypharmacy (Chronic) Psychosocial impairment (Chronic) Thyroid nodule (Chronic) Type 2 diabetes, uncontrolled, with neuropathy (Chronic) Diabetes mellitus (Chronic) Plan: Migraine (Acute) She has had a recurrence of headache. The cause is unknown. However, she received hydromorphone 8 mg this morning and also ondansetron for nausea. I cannot rule out opioiod seeking behavior Chronic pain syndrome (Acute) This also was exacerbated at the same time as the migraine - in her muscles and joints. This doesn't make any nosological sense. Again, I cannot rule out opioid seeking behavior. Constipation (Acute) Another consequence of opioids - MOM hasn't worked. I will give her 34 grams of miralax Accelerated hypertension (Acute) This is recovered Type 2 diabetes, uncontrolled, with neuropathy (Chronic) Diabetes mellitus ( Chronic) her fasting glucose is on target, but she is higher during the day - this is likely due to insufficient prandial insulin. This is a daily pattern. I will adjust her prandial insulin Secondary diagnoses: Arthritis (Chronic) Autoimmune disease (Chronic) Diverticulosis (Chronic) Fibromyalgia (Chronic) GERD (gastroesophageal reflux disease) (Chronic) History of cholecystectomy (Chronic) Multiple drug allergies (Chronic) Opioid dependence (Chronic) Polypharmacy (Chronic) Psychosocial impairment (Chronic) Thyroid nodule (Chronic) I discussed the above with the patient. There is a strong psychological/social component to her symptoms presentation. There is no objective correlate to her described pain. She asked me about certifying her for medical marijuana - I am not sure she is a good candidate given the ambiguity about possible opioiod seeking. However, if Dr. Anila Saul refers her to me for this, and also this is a step towards verifiable opioid independence with accompanying counseling, I would consider this.
[2018-12-15] MEDS ORDERED: Dextrose 50% VIAL 50 ml IV PUSH PRN (09:55)
[2018-12-15] MEDS: Baclofen TAB* 20 MG PO PRN (16:47)
[2018-12-15] MEDS: Atorvastatin* 10 MG TAB PO SCH (20:27)
[2018-12-15] MEDS: Polyethylene Glycol 3350* 17 GM PACKET PO SCH (20:29)
[2018-12-15] MEDS: Insulin GLARGINE(*) 1 UNITS UNIT SUBCUT SCH (21:24)
[2018-12-16] MEDS: HYDROmorphone TAB* 4 MG PO PRN ×3 (02:00→12:40)
[2018-12-16] MEDS: Heparin VIAL(*) 5000 UNITS/ML VIAL (FIVE THOUSAND) SUBCUT SCH (05:14)
[2018-12-16] MEDS: Baclofen TAB* 20 MG PO PRN (05:18)
[2018-12-16 07:15] LABS: Albumin 3.6 g/dL (3.2-5.2); Albumin/Globulin Ratio 1.3 (1-3); BUN/Creatinine Ratio 9.2 (8-20); Calcium 9.4 mg/dL (8.6-10.3); EGFR African American 77.9 (>60); EGFR Non-African American 64.4 (>60); Globulin 2.7 g/dL (2-4); Potassium 4.6 mmol/L (3.5-5.0); Total Bilirubin 0.6 mg/dL (0.2-1.0); Total Protein 6.3 g/dL (6.4-8.9)
[2018-12-16] MEDS: Potassium Chlor TAB* 10 MEQ TAB.ER PO SCH (08:13)
[2018-12-16] MEDS: Pantoprazole TAB * 40 MG TAB PO SCH (08:14)
[2018-12-16] MEDS: Folic Acid TAB* 1 MG PO SCH (08:14)
[2018-12-16] MEDS: Lisinopril TAB* 10 MG PO SCH (08:14)
[2018-12-16] MEDS: Atenolol TAB* 25 MG PO SCH (08:14)
[2018-12-16] MEDS: Polyethylene Glycol 3350* 17 GM PACKET PO SCH (08:15)
[2018-12-16] MEDS: Insulin LISPRO* 1 UNITS UNIT SUBCUT SCH ×4 (09:05→12:41)
[2018-12-16] MEDS: SUMAtriptan SQ* 6 MG/0.5 ML VIAL SUBCUT PRN (09:44)
[2018-12-16 11:59] VITALS: BP 147/65
[2018-12-16] MEDS: Ondansetron INJ* 2 MG/ML VIAL IV PRN (12:41)
--- NOTE | 2018-12-16 13:17 | DS ---
DISCHARGE SUMMARY: DATE OF ADMISSION: 12/10/18 DATE OF DISCHARGE: 12/16/18 DISCHARGE DIAGNOSES: 1. Nausea and vomiting, etiology uncertain. 2. Migraine headaches. 3. Type 2 diabetes mellitus. 4. History of paroxysmal atrial fibrillation, not seen on this admission. 5. Multiple allergies. 6. Medication non-adherence. 7. Chronic pain, on chronic opioid therapy. 8. Hyperlipidemia, treated. 9. Hypertension, started lisinopril during this admission. 10. History of gastroesophageal reflux disease, on PPI. 11. Chronic constipation due to opioids. 12. Chronic demyelinating disease. 13. Fibromyalgia. 14. History of peripheral neuropathy. 15. Polyarthropathy. 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 17. Osteoporosis. 18. Diverticulosis. 19. Degenerative joint disease. 20. History of asthma. HISTORY OF PRESENT ILLNESS: Keila Brown is a 68-year-old woman admitted with nausea and vomiting. Please see dictated admission note for details of the present illness, past medical history, family history, social and personal history, review of systems, and physical examination. DIAGNOSTIC STUDIES/LAB DATA: Initial CBC: WBC 10.7, H and H 16.1/47, MCV 90, PLT 154K. White count came down to 8.3. H and H 15.4/43, MCV 90, PLT 162 on . INR was normal at 1.02 on 12/10/18. ABGs on 12/10/18, pH 7.49, pCO2 of 33, pO2 of 86. Chemistries on admission: Sodium 136, potassium 3.6, chloride 104, CO2 of 21, BUN and creatinine 14/0.88. Glucose 457, calcium 9.4, alkaline phosphatase 136. Rest of the comprehensive metabolic panel was otherwise within normal limits. Amylase 55, lipase slightly elevated at 96. Urinalysis: Yellow , clear, specific gravity 1.028, ketones 1+, glucose 3+. Repeat UA prior to discharge is pending. Chemistries prior to discharge on 12/16/18: Sodium 135, potassium 4.6, chloride 102, CO2 of 28, BUN and creatinine 8/0.87, glucose 199. Rest of comprehensive metabolic panel was essentially within normal limits except for a total protein slightly low at 6.3. TSH on 12/11/18 was 1.13. C- reactive protein was normal on 12/11/18 and 12/12/18. Troponin I was 0.01 on . Urine drug screen was positive for opioids. Serum alcohol was less than 10, acetaminophen was less than 15, salicylates less than 2.5. Stool for C. diff was negative. Imaging: Brain CT on 12/10/18, showed no acute findings. Abdomen and pelvis CT on 12/10/18 showed mild distention of loops in small bowel, status post cholecystectomy, collateral vessels of the subcutaneous tissues of the abdominal wall, Larry catheter in the bladder. Chest x-ray on 12/10/18 showed low lung volumes, small left basilar infiltrate. Chest x-ray on 12/11/18 showed no active cardiopulmonary disease. EKG on 12/10/18 showed normal sinus rhythm, possible left atrial enlargement, borderline prolong QT interval. EKG on 12/12/18 showed sinus bradycardia, low voltage extremity leads, QTc okay. HOSPITAL COURSE: The patient was initially admitted with nausea, vomiting, given IV fluids. Etiology of the nausea and vomiting was unclear. Ileus versus gastroparesis were entertained. Zofran was ordered p.r.n., Protonix 40 mg IV daily. Her Dilaudid orally was continued. Chest x-ray was originally done to rule out aspiration. There is a suggestion of an infiltrate but on reimaging, this was not seen and she had a normal CRP and she had a slight cough on the day after admission after that resolved. She had no fever. Her blood pressure was high initially, came down. Her blood pressure was running somewhat high and it was felt that perhaps this was contributing to headache. She was started on lisinopril. She had persistent headache, migraine for which she got sumatriptan. She says this happens intermittently at home. We discussed the fact that she has not been compliant with CPAP for sleep apnea. She will need to follow up with sleep clinic after discharge. She says the mask bothers her. For her insulin, she was placed on Lantus, sliding scale lispro. Her blood sugars run somewhat high. She takes Xultophy at home. This will be resumed at the time of discharge. She got Heparin for DVT prophylaxis. At the time of discharge, she is still having migraine headache but wanted to go home. She has been able to walk around. She is eating fairly well. She was initially constipated, then had a bowel movement. I prescibed milk of magnesia as needed. MEDICATIONS: Her medications at the time of discharge are: 1. Xultophy 50 units daily. 2. Lisinopril 10 mg daily. 3. Atenolol 25 mg daily. 4. Estradiol 0.5 mg daily. She says that we have cut back on that dose, had been taking 1 mg prior to that. 5. Metformin 1000 mg twice a day. 6. Ondansetron 4 mg q.i.d. p.r.n. 7. Dexilant 60 mg daily. 8. Linzess 290 mcg daily. 9. Levocetirizine 5 mg daily. 10. Azelastine 2 sprays both nostrils b.i.d. 11. Folic acid 1 mg daily. 12. Effie-3 fatty acids 1000 mg twice a day. 13. Ipratropium 1 spray both nostrils q.i.d. p.r.n. 14. Hydromorphone 8 mg every 3 hours p.r.n. pain with a maximum daily dose of 7. 15. Sumatriptan 100 mg daily p.r.n. or sumatriptan 6 mg daily. 16. Alpha lipoic acid 600 mg daily. 17. Ascorbic acid 100 mg daily. 18. Baclofen 20 mg 4 times a day p.r.n. 19. Clobetasol b.i.d. p.r.n. 20. Metronidazole. 21. Milk thistle 1000 mg daily. 22. Lotrisone cream as needed. 23. Atorvastatin 5 mg at bedtime. 24. Potassium 10 mEq twice a day. 25. Empagliflozin 10 mg daily. 26. Bumex 2 mg twice a day as needed. 27. B12 of 1000 mcg monthly. FOLLOWUP: Followup with me will be in 1 to 2 weeks. DIET: As usual. ACTIVITY: As tolerated. [id number]/[facility] #: [id number] [facility]
--- NOTE | 2018-12-19 22:42 | DS ---
DISCHARGE SUMMARY: DATE OF ADMISSION: DATE OF DISCHARGE: ADDENDUM: The patient is discharged home in improved condition, but still with migraine headache. [id number]/[facility] #: [id number] TIKI
== END 2018-12-16 13:40 | disposition home or self-care (01) | DRG 392 ==
LOC: ED 02:09 → MEDTELE 08:27 → UNDOADMOB 08:27 → OBSVTOIN 12-11 16:00 → INTOOBSV 12-11 16:00 → UNDODISIN 12-16 13:40
PROVIDERS: ADMIT Internal Medicine; ATTEND Internal Medicine Geriatric Medicine
DX: R11.2 Nausea with vomiting, unspecified (principal); G37.9 Demyelinating disease of central nervous system, unspecified; I87.1 Compression of vein; F11.20 Opioid dependence, uncomplicated; G43.909 Migraine, unspecified, not intractable, without status migrainosus; I48.0 Paroxysmal atrial fibrillation; R19.7 Diarrhea, unspecified; I16.0 Hypertensive urgency; G89.29 Other chronic pain; E78.5 Hyperlipidemia, unspecified; I10 Essential (primary) hypertension; K21.9 Gastro-esophageal reflux disease without esophagitis; R07.9 Chest pain, unspecified; K59.09 Other constipation; M79.7 Fibromyalgia; E11.40 Type 2 diabetes mellitus with diabetic neuropathy, unspecified; M81.0 Age-related osteoporosis without current pathological fracture; K57.90 Diverticulosis of intestine, part unspecified, without perforation or abscess without bleeding; J45.909 Unspecified asthma, uncomplicated; G47.33 Obstructive sleep apnea (adult) (pediatric); Z91.14 Patient's other noncompliance with medication regimen; Z99.89 Dependence on other enabling machines and devices; Z79.84 Long term (current) use of oral hypoglycemic drugs; Z79.4 Long term (current) use of insulin; Z79.899 Other long term (current) drug therapy; Z88.5 Allergy status to narcotic agent; Z88.8 Allergy status to other drugs, medicaments and biological substances; Z82.49 Family history of ischemic heart disease and other diseases of the circulatory system; Z80.0 Family history of malignant neoplasm of digestive organs; Z87.891 Personal history of nicotine dependence
CPT/HCPCS: 36415; 70450; 71046; 74177; 80048; 80053; 80076; 80307; 80320; 80329; 81003; 82140; 82150; 82803; 82947; 83036; 83605; 83690; 83735; 84100; 84443; 84484; 85025; 85060; 85610; 86140; 87493; 93005; 96365; 96375; 99285; A9270-GY; G0378; G0480; G8978-GP-CJ; G8978-GP-CK; G8979-GP-CI; J1644; J2405; J3030; J3480; Q9967

== ENCOUNTER 2019-01-29 00:53 | Inpatient (IN) | payer MEDICARE, MEDICAID ==
[2019-01-29] MEDS ORDERED: NS 0.9% 1000 ML** 1,000 ML IV ONE ×2 (01:20→03:18)
[2019-01-29] MEDS ORDERED: Ondansetron INJ* 2 MG/ML VIAL IV ONE (01:22)
--- NOTE | 2019-01-29 01:26 | ED ---
Complex/Multi-Sys Presentation - HPI Summary HPI Summary: Patient is a 68 y/o F presenting to the ED for a chief complaint of right eye ecchymosis after a fall around midnight on 01/29/19. Patient reports that she fell due to lightheadedness. She also notes decreased food intake, nausea, vomiting, abdominal pain, and constipation. She states her abdomen "always hurts." She denies shortness of breath or dysuria. Patient takes Zofran prescribed by Dr. Saul. She lives in [facility]. - History Of Current Complaint Time Seen by Provider: 01/29/19 01:15 Hx Obtained From: Patient Onset/Duration: Sudden Onset, Still Present Timing: Constant Severity Currently: Moderate Severity Initially: Moderate Associated Signs And Symptoms: Positive: Nausea, Vomiting, Abdominal Pain - Diffuse. Negative: SOB - Allergies/Home Medications Allergies/Adverse Reactions: Allergies Allergy/AdvReac Type Severity Reaction Status Date / Time methylparaben Allergy Intermediate Pain Verified 12/10/18 02:18 morphine Allergy Intermediate Hallucinati Verified 12/10/18 02:18 ons tizanidine Allergy Intermediate Swelling Verified 12/10/18 02:18 Of Face,Lips,& Throat Tricyclic Compounds Allergy Intermediate Altered Verified 12/10/18 02:18 Mental Status diphenhydramine Allergy Mild See Comment Verified 12/12/18 22:03 hydromorphone Allergy Mild See Comment Verified 12/10/18 02:18 itraconazole Allergy Mild Rash Verified 12/10/18 02:18 lanolin Allergy Mild Rash Verified 12/10/18 02:18 milnacipran Allergy Mild Rash And Verified 12/10/18 02:18 Itching mometasone furoate Allergy Mild Headache Verified 12/10/18 02:18 naloxone Allergy Mild Headache Verified 12/10/18 02:18 ondansetron Allergy Mild Headache Verified 12/10/18 02:18 oxycodone Allergy Mild Palpitation Verified 12/10/18 02:18 s oxymorphone Allergy Mild Palpitation Verified 12/10/18 02:18 s Penicillins Allergy Mild Rash Verified 12/10/18 02:18 pentazocine Allergy Mild Palpitation Verified 12/10/18 02:18 s propoxyphene Allergy Mild Rash Verified 12/10/18 02:18 sulfasalazine Allergy Mild Rash Verified 12/10/18 02:18 talc Allergy Mild Rash Verified 12/10/18 02:18 tramadol Allergy Mild Muscle Ache Verified 12/10/18 02:18 trazodone Allergy Mild Insomnia Verified 12/10/18 02:18 Adhesive Tape Allergy Unknown Unknown Verified 12/10/18 02:18 Reaction Details alprazolam Allergy Unknown Unknown Verified 12/10/18 02:18 Reaction Details aspirin Allergy Unknown Unknown Verified 12/10/18 02:18 Reaction Details cefaclor Allergy Unknown Unknown Verified 12/10/18 02:18 Reaction Details clarithromycin Allergy Unknown Unknown Verified 12/10/18 02:18 Reaction Details codeine Allergy Unknown Unknown Verified 12/10/18 02:18 Reaction Details diazepam Allergy Unknown Unknown Verified 12/10/18 02:18 Reaction Details doxycycline Allergy Unknown Unknown Verified 12/10/18 02:18 Reaction Details duloxetine Allergy Unknown Unknown Verified 12/10/18 02:18 Reaction Details fentanyl Allergy Unknown See Comment Verified 12/10/18 02:18 fluoxetine Allergy Unknown Unknown Verified 12/10/18 02:18 Reaction Details gabapentin Allergy Unknown See Comment Verified 12/10/18 02:18 hydroxychloroquine Allergy Unknown Unknown Verified 12/10/18 02:18 Reaction Details paroxetine Allergy Unknown Unknown Verified 12/10/18 02:18 Reaction Details adhesive Allergy Blisters Verified 12/10/18 02:18 apple Allergy Anaphylatic Verified 12/10/18 02:18 Shock black pepper Allergy Hives/Diff. Verified 12/10/18 02:18 Breathing/I tching Bleach (Sodium Hypochlorite) Allergy Unknown Verified 12/10/18 02:18 Reaction Details capsaicin Allergy Unknown Verified 12/10/18 02:18 Reaction Details cigarette smoke Allergy Difficulty Verified 12/10/18 02:18 Breathing Corticosteroids Allergy Unknown Verified 12/10/18 02:18 (Glucocorticoids) Reaction Details melon Allergy Anaphylatic Verified 12/10/18 02:18 Shock mupirocin Allergy Unknown Verified 12/10/18 02:18 Reaction Details NSAIDS (Non-Steroidal Allergy Unknown Verified 12/10/18 02:18 Anti-Inflamma Reaction Details onion Allergy Hives/Diff. Verified 12/10/18 02:18 Breathing/I tching pepper (genus Capsicum) Allergy Unknown Verified 12/10/18 02:18 Reaction Details tapentadol [From Nucynta] Allergy Unknown Verified 12/10/18 02:18 Reaction Details lettuce AdvReac Stomach Verified 12/10/18 02:18 Cramps VINEGAR Allergy Intermediate TROUBLE Uncoded 12/10/18 02:18 BREATHING ENVRIONMENTAL Allergy Mild Sneezing Uncoded 12/10/18 02:18 BANDAIDS AdvReac Mild Blisters Uncoded 12/10/18 02:18 PMH/Surg Hx/FS Hx/Imm Hx Previously Healthy: Yes Endocrine/Hematology History: Reports: Hx Diabetes Denies: Hx Systemic Lupus Erythematosus, Hx Thyroid Disease - But has thyroid tumor that needs annual check, Hx Anemia Cardiovascular History: Reports: Hx Angina, Hx Hypercholesterolemia, Hx Hypertension, Other Cardiovascular Problems/Disorders - SUPERIOR VENA CAVA [id number]. [facility] Denies: Hx Congestive Heart Failure - superior vena cava syndrome, Hx Coronary Artery Disease, Hx Pacemaker/ICD, Hx Valvular Heart Disease Respiratory History: Reports: Hx Asthma GI History: Reports: Hx Diverticulosis, Hx Gastroesophageal Reflux Disease, Hx Hiatal Hernia, Other GI Disorders - HX DIVERTICULOSIS Denies: Hx Jaundice History: Reports: Hx Acute Renal Failure Denies: Hx Chronic Renal Failure, Hx Dialysis, Hx Renal Disease Musculoskeletal History: Reports: Hx Arthritis - OSTEO, Hx Back Problems - degenerative disc disease, Hx Osteoporosis, Hx Tendonitis - WRISTS AND ELBOWS, Other Musculoskeletal History - DEGEN DISC DISEASE; chronic pain Denies: Hx Rheumatoid Arthritis - myeloradicular neurapathy Sensory History: Reports: Hx Cataracts - BILAT, Hx Contacts or Glasses Denies: Hx Legally Blind, Hx Deafness, Hx Hearing Aid Opthamlomology History: Reports: Hx Cataracts - BILAT, Hx Contacts or Glasses Denies: Hx Legally Blind EENT History: Denies: Hx Deafness Neurological History: Reports: Hx Headaches, Hx Migraine - 2-3 TIMES PER WEEK- TREATS WITH IMITREX, Other Neuro Impairments/Disorders - multiple sclerosis, FIBROMYALGIA, MYELORADICULAR NEUROPATHY Denies: Hx Seizures Psychiatric History: Reports: Hx Depression Denies: Hx Panic Disorder - Cancer History Hx Chemotherapy: No Hx Radiation Therapy: No - Surgical History Surgical History: Yes Surgery Procedure, Year, and Place: Hysterectomy 1999 [facility]. D+C 1999 [facility]. BOWEL RESECTION, COLOSTOMY 1993. COLOSTOMY WITH REVERSAL 1994 [facility]. OVARIAN CYSTECTOMY 1996 [facility]. LAP CRISTIAN WITH INFUSAPORT REMOVAL 2013 [facility]. APPY REMOVAL OF RIGHT OVARIAN CYST AND RESECTION 1968. T&A. DEVIATED SEPTUM REPAIR. SINUS SURGERY 2006 [facility]. INFUSAPORT 2003. 2014- LEFT EYE CATARACT REMOVED Hx Anesthesia Reactions: No - Immunization History Date of Influenza Vaccine: hsa not received Infectious Disease History: Reports: Hx Hepatitis - "medical"- only while taking a medication-states no longer takes, name unkn - Family History Known Family History: Positive: Other - Breast CA; anesthesia reaction Negative: Cardiac Disease - Social History Occupation: Disabled Lives: [facility] Alcohol Use: None Hx Substance Use: No Substance Use Type: Reports: None Hx Tobacco Use: Yes Smoking Status (MU): Former Smoker Type: Cigarettes Amount Used/How Often: 4 PPD X 15 YEARS Length of Time of Smoking/Using Tobacco: 20 YRS Have You Smoked in the Last Year: No Review of Systems Positive: Other - Positive decreased food intake Negative: Shortness Of Breath Positive: Abdominal Pain - Diffuse, Vomiting, Nausea, Other - Positive constipation Negative: dysuria Positive: Bruising - Right eye Neurological: Other - Positive lightheadedness All Other Systems Reviewed And Are Negative: Yes Physical Exam - Summary Physical Exam Summary: Appearance: Chronically ill-appearing elderly woman, Well-nourished, appears to be somewhat restless. Skin: Warm, dry, no obvious rash Eyes: sclera anicteric, no conjunctival pallor. Obvious right periorbital contusion with swelling over the maxilla. Tenderness about the cheek which does not appear to be injured, extraoccular movement intact, no proptosis. ENT: mucous membranes moist, pharynx appears normal Neck: Supple, nontender. Full ROM of the neck without any apparent pain. Respiratory: Clear to auscultation, no signs of respiratory distress Cardiovascular: Normal S1, S2. No murmurs. Normal distal pulses in tibial and radial bilaterally. Abdomen: Soft, nontender, normal active bowel sounds present Musculoskeletal: Normal, Strength/ROM Intact Neurological: A&Ox3, awake and alert, mentation is normal, speech is fluent and appropriate Psychiatric: affect is normal, does not appear anxious or depressed Triage Information Reviewed: Yes Vital Signs Reviewed: Yes - [place] Coma Scale Best Eye Response: 4 - Spontaneous Best Motor Response: 6 - Obeys Commands Best Verbal Response: 5 - Oriented Coma Scale Total: 15 Procedures - Sedation Patient Received Moderate/Deep Sedation with Procedure: No Diagnostics - Laboratory Result Diagrams: 01/29/19 01:37 01/29/19 01:37 Lab Statement: Any lab studies that have been ordered have been reviewed, and results considered in the medical decision making process. - CT Brain CT CT Interpretation Completed By: Radiologist Summary of CT Findings: Brain CT IMPRESSION: 1. Right periorbital contusion and pre-zygomatic subcutaneous hematoma. No traumatic intracranial abnormalities. 2. Stable left posterior fossa subarachnoid cyst. 3. Mild chronic small vessel ischemic disease. Reviewed by Dr. Akins. Maxillofacial CT CT Interpretation Completed By: Radiologist Summary of CT Findings: Maxillofacial CT IMPRESSION: Right periorbital and facial traumatic contusion with associated small pre-zygomatic subcutaneous hematoma. No facial bone fractures. Reviewed by Dr. Akins. Complex Multi-Symp Course/Dx Course Of Treatment: Patient is a 68 y/o F presenting to the ED for a chief complaint of right eye ecchymosis after a fall around midnight on 01/29/19. Patient reports that she fell due to lightheadedness. She also notes decreased food intake, nausea, vomiting, abdominal pain, and constipation. She states her abdomen "always hurts." She denies shortness of breath or dysuria. Patient takes Zofran prescribed by Dr. Saul. On exam, chronically ill-appearing elderly women who appears to be somewhat restless, obvious right periorbital contusion with swelling over the maxilla. Tenderness about the cheek which does not appear to be injured, extraoccular movement intact, no proptosis. Full ROM of the neck without any apparent pain. In the ED course, patient was given Zofran 8 mg IV and fluids. Laboratory abnormal findings: MCH 32, absolute monos 1.0, sodium 133, chloride 96, BUN 31, creatinine 1.93, glucose 186. Brain CT IMPRESSION: 1. Right periorbital contusion and pre-zygomatic subcutaneous hematoma. No traumatic intracranial abnormalities. 2. Stable left posterior fossa subarachnoid cyst. 3. Mild chronic small vessel ischemic disease. Maxillofacial CT IMPRESSION: Right periorbital and facial traumatic contusion with associated small pre-zygomatic subcutaneous hematoma. No facial bone fractures. At 05:50, Dr. Cary agrees to admit the patient to [facility] with a diagnosis of dehydration and acute kidney injury. Patient will be admitted to [facility] with a diagnosis of dehydration and acute kidney disease. - Diagnoses Provider Diagnoses: Acute kidney injury, Dehydration - Physician Notifications Discussed Care Of Patient With: Halie Cary - At 05:50, Dr. Cary agrees to admit the patient to [facility] with a diagnosis of dehydration and acute kidney injury. Time Discussed With Above Provider: 05:50 Instructed by Provider To: Admit As Inpatient Discharge ED - Sign-Out/Discharge Documenting (check all that apply): Patient Departure - Admit - Discharge Plan Condition: Guarded Disposition: ADMITTED TO [facility] Referrals: Anila Saul MD [Primary Care Provider] - - Billing Disposition and Condition Condition: GUARDED Disposition: Admitted to [facility] - Attestation Statements Document Initiated by Scribe: Yes Documenting Scribe: Lin Adames Provider For Whom Bishop is Documenting (Include Credential): Carlos Akins MD Scribe Attestation: Lin Starks scribed for Carlos Akins MD on 01/29/19 at 0648. Scribe Documentation Reviewed: Yes Provider Attestation: The documentation as recorded by the Lin mayer accurately reflects the service I personally performed and the decisions made by Carlos collier MD Status of Scribe Document: Viewed
[2019-01-29 01:44] LABS: ABS Eosinophils 0.3 10^3/ul (0-0.6); ABS Lymphocytes 2.8 10^3/ul (1.0-4.8); ABS Neutrophils 5.1 10^3/ul (1.5-7.7); Eosinophil % 3.2 %; Hematocrit 43 % (35-47); Hemoglobin 14.8 g/dL (12.0-16.0); Lymphocyte % 30.3 %; Mean Corpuscular HGB Conc 34 g/dL (31-36); Mean Corpuscular Hemoglobin 32 pg (27-31); Mean Corpuscular Volume 94 fL (80-97); Mean Platelet Volume 7.7 fL (7.4-10.4); Platelet Count 248 10^3/uL (150-450); Red Blood Count 4.61 10^6 /uL (3.70-4.87); Red Cell Distribution Width 14 % (10-15); White Blood Count 9.2 10^3/uL (3.5-10.8)
[2019-01-29 02:01] LABS: Albumin 4.1 g/dL (3.2-5.2); Albumin/Globulin Ratio 1.2 (1-3); BUN/Creatinine Ratio 16.1 (8-20); Calcium 9.1 mg/dL (8.6-10.3); EGFR African American 31.1 (>60); EGFR Non-African American 25.7 (>60); Globulin 3.4 g/dL (2-4); Potassium 4.3 mmol/L (3.5-5.0); Total Bilirubin 0.6 mg/dL (0.2-1.0); Total Protein 7.5 g/dL (6.4-8.9)
--- OUTSIDE RECORDS SUMMARY | 2019-01-29 02:49 | XMS REPORT ---
:1950 Author Organization [facility] Care Team Providers Name Role Phone Unavailable Unavailable Unavailable Problems This patient has no known problems. Allergies, Adverse Reactions, Alerts Allergy Allergy Status Severity Reaction(s) Onset Inactive Treating Comments Name Type Date Date Clinician methylparab Base Active Unknown pain 2017-02 Holly en Ingredient 0-10 Jason [id number] morphine Unknown Active Unknown hullucnations 2017-02 Holly 0-10 [place] [id number] tizanidine Base Active Unknown swelling of 2017-02 Holly Ingredient face 0-10 [place] [id number] Tricyclic Allergen Active Unknown altered mental 2017-02 Hloly [employer]ounds Group status 0-10 [place] [id number] hydromorpho Base Active Unknown mild heart 2017-02 Holly ne Ingredient palpations 0-10 [place] brand name is [id number] ok to use itraconazol Base Active Unknown Rash 2017-02 Holly e Ingredient 0-10 Jason [id number] lanolin Unknown Active Unknown Rash 2017-02 Holly 0-10 [place] [id number] milnacipran Base Active Unknown Rash 2017-02 Holly Ingredient 0-10 Jason [id number] mometasone Base Active Unknown headache 2017-02 Holly furoate Ingredient 0-10 [place] [id number] naloxone Base Active Unknown headache 2017-02 Holly Ingredient 0-10 Jason [id number] ondansetron Unknown Active Unknown headache 2017-02 Holly 0-10 [place] [id number] oxycodone Unknown Active Unknown palpitations 2017-02 Holly generic only 0-10 [place] [id number] oxymorphone Base Active Unknown palpitations 2017-02 Holly Ingredient 0-10 Jason [id number] penicillins Unknown Active Unknown Rash 2017-02 Holly 0-10 Jason [id number] propoxyphen Unknown Active Unknown palpitations 2017-02 Holly e 0-10 [place] [id number] sulfasalazi Base Active Unknown Rash 2018- Holly ne Ingredient 0-10 [place] [id number] talc Unknown Active Unknown Rash 2018- Holly 0-10 Jason [id number] tramadol Base Active Unknown muscle ache 2018- Holly Ingredient 0-10 [place] [id number] trazodone Base Active Unknown insomnia 2018- Holly Ingredient 0-10 [place] [id number] adhesive Unknown Active Unknown Reaction 2017- Holly tape Unknown 0-10 [place] [id number] alprazolam Unknown Active Unknown Reaction 2017- Holly Unknown 0-10 [place] [id number] aspirin Unknown Active Unknown Reaction 2017-02 Holly Unknown 0-10 [place] [id number] cefaclor Unknown Active Unknown Reaction 2017- Holly Unknown 0-10 [place] [id number] clarithromy Base Active Unknown Reaction 2017- Holly mike Ingredient Unknown 0-10 [place] [id number] codeine Unknown Active Unknown Reaction 2017-02 Holly Unknown 0-10 [place] [id number] diazepam Unknown Active Unknown Reaction 2017-02 Holly Unknown 0-10 [place] [id number] diphenhydra Base Active Unknown Reaction 2017- Holly mine Ingredient Unknown 0-10 [place] [id number] doxycycline Unknown Active Unknown Reaction 2018- Holly Unknown 0-10 [place] [id number] duloxetine Unknown Active Unknown Reaction 2017- Holly Unknown 0-10 [place] [id number] fentanyl Unknown Active Unknown Reaction 2017- Holly Unknown 0-10 [place] [id number] fluoxetine Unknown Active Unknown Reaction 2017-02 Holly Unknown 0-10 [place] [id number] gabapentin Unknown Active Unknown Reaction 2017-02 Holly Unknown 0-10 [place] [id number] hydroxychlo Base Active Unknown Reaction 2017- Holly roquine Ingredient Unknown 0-10 [place] [id number] paroxetine Base Active Unknown Reaction 2017- Holly Ingredient Unknown 0-10 [place] [id number] adhesive Unknown Active Unknown blisters 2017- Holly 0-10 [place] [id number] apple Unknown Active Unknown Anaphylaxis 2017- Holly 0-10 [place] [id number] black Unknown Active Unknown Hives, 2018- Holly pepper Difficulty 0-10 [place] swallowing [id number] bleach Unknown Active Unknown Reaction 2017-02 Holly Unknown 0-10 [place] [id number] capsacin Unknown Active Unknown Reaction 2018- Holly Unknown 0-10 [place] [id number] cigarette Unknown Active Unknown difficulty 2018- Holly smoke breathing 0-10 Jason [id number] Corticoster Allergen Active Unknown Reaction 2018- Holly oids Group Unknown 0-10 [place] (Glucocorti [id number] coids) melon Unknown Active Unknown Anaphylaxis 2018- Holly 0-10 [place] GI203419 mupirocin Unknown Active Unknown Reaction 2018- Holly Unknown 0-10 [place] [id number] NSAIDS Allergen Active Unknown Reaction 2018- Holly (Non-Steroi Group Unknown 0-10 [place] eric [id number] Anti-Inflam matory Drug) onion Unknown Active Unknown difficulty 2018- Holly breathing 0-10 [place] [id number] tapentadol Base Active Unknown Reaction 2018- Holly Ingredient Unknown 0-10 [place] [id number] lettuce Unknown Active Unknown Abdominal 2018- Holly pain/stomach 0-10 [place] cramps [id number] vinegar Unknown Active Unknown Wheezing, 2018- Holly trouble 0-10 [place] breathing [id number] applesauce Unknown Active Unknown throat 2018- Holly swelling 0-10 [place] [id number] enviromenta Unknown Active Unknown sneezing 2018- Holly l 0-10 [place] [id number] chlorine Unknown Active Unknown Reaction 2018- Holly Unknown 0-10 [place] [id number] peppers Unknown Active Unknown Reaction 2018- Holly Unknown 0-10 [place] [id number] Bandaids Unknown Active Unknown blisters 2018- Holly 0-10 [place] [id number] Medications Ordered Filled Start Stop Current Ordering Indication Dosage Frequency Signature Comments Components Medication Medication Date Date Medication? Clinician (SIG) Name Name No Known No Known No None None None Medications Medications For This For This Patient Patient Procedures This patient has no known procedures. Results This patient has no known results.
--- OUTSIDE RECORDS SUMMARY | 2019-01-29 02:49 | XMS REPORT ---
:1950 Author Organization [facility] Care Team Providers Name Role Phone Unavailable Unavailable Unavailable Problems This patient has no known problems. Allergies, Adverse Reactions, Alerts Allergy Allergy Status Severity Reaction(s) Onset Inactive Treating Comments Name Type Date Date Clinician methylparab Base Active Unknown pain 2017-02 Holly en Ingredient 0-10 Jason [id number] morphine Unknown Active Unknown hullucnations 2017-02 Holly 0-10 [place] [id number] tizanidine Base Active Unknown swelling of 2017-02 Holly Ingredient face 0-10 [place] [id number] Tricyclic Allergen Active Unknown altered mental 2017-02 Holly Compounds Group status 0-10 [place] [id number] hydromorpho Base Active Unknown mild heart 2017-02 Holly ne Ingredient palpations 0-10 [place] brand name is [id number] ok to use itraconazol Base Active Unknown Rash 2017-02 Holly e Ingredient 0-10 Jason [id number] lanolin Unknown Active Unknown Rash 2017-02 Holly 0-10 [place] [id number] milnacipran Base Active Unknown Rash 2017-02 Holly Ingredient 0-10 Jason [id number] mometasone Base Active Unknown headache 2017-02 Holly furoate Ingredient 0-10 [place] [id number] naloxone Base Active Unknown headache 2017-02 Holly Ingredient 0-10 Jason [id number] ondansetron Unknown Active Unknown headache 2017-02 Holly 0-10 [place] AU047792 oxycodone Unknown Active Unknown palpitations 2017-02 Holly generic only 0-10 [place] [id number] oxymorphone Base Active Unknown palpitations 2017-02 Holly Ingredient 0-10 Jason [id number] penicillins Unknown Active Unknown Rash 2017-02 Holly 0-10 Jason [id number] propoxyphen Unknown Active Unknown palpitations 2017-02 Holly e 0-10 [place] HC506040 sulfasalazi Base Active Unknown Rash 2018- Holly ne Ingredient 0-10 [place] [id number] talc Unknown Active Unknown Rash 2018- Holly 0-10 Jason [id number] tramadol Base Active Unknown muscle ache 2018- Holly Ingredient 0-10 [place] FH078572 trazodone Base Active Unknown insomnia 2018- Holly Ingredient 0-10 [place] [id number] adhesive Unknown Active Unknown Reaction 2017- Holly tape Unknown 0-10 [place] [id number] alprazolam Unknown Active Unknown Reaction 2017- Holly Unknown 0-10 [place] [id number] aspirin Unknown Active Unknown Reaction 2017-02 Holly Unknown 0-10 [place] [id number] cefaclor Unknown Active Unknown Reaction 2017- Holly Unknown 0-10 [place] [id number] clarithromy Base Active Unknown Reaction 2017- Holly mike Ingredient Unknown 0-10 [place] [id number] codeine Unknown Active Unknown Reaction 2017-02 Holly Unknown 0-10 [place] [id number] diazepam Unknown Active Unknown Reaction 2017-02 Holly Unknown 0-10 [place] [id number] diphenhydra Base Active Unknown Reaction 2017- Holly mine Ingredient Unknown 0-10 [place] SU002577 doxycycline Unknown Active Unknown Reaction 2018- Holly Unknown 0-10 [place] [id number] duloxetine Unknown Active Unknown Reaction 2017- Holly Unknown 0-10 [place] [id number] fentanyl Unknown Active Unknown Reaction 2017- Holly Unknown 0-10 [place] [id number] fluoxetine Unknown Active Unknown Reaction 2017-02 Holly Unknown 0-10 [place] PD889192 gabapentin Unknown Active Unknown Reaction 2017-02 [place] Unknown 0-10 [place] [id number] hydroxychlo Base Active Unknown Reaction 2017- Holly roquine Ingredient Unknown 0-10 [place] QT216292 paroxetine Base Active Unknown Reaction 2017- Holly Ingredient Unknown 0-10 [place] PV454205 adhesive Unknown Active Unknown blisters 2017- Holly 0-10 [place] [id number] apple Unknown Active Unknown Anaphylaxis 2017- Holly 0-10 [place] [id number] black Unknown Active Unknown Hives, 2018- Holly pepper Difficulty 0-10 [place] swallowing [id number] bleach Unknown Active Unknown Reaction 2017-02 Holly Unknown 0-10 [place] QW027272 capsacin Unknown Active Unknown Reaction 2018- Holly Unknown 0-10 [place] [id number] cigarette Unknown Active Unknown difficulty 2018- Holly smoke breathing 0-10 Jason [id number] Corticoster Allergen Active Unknown Reaction 2018- [place] oids Group Unknown 0-10 [place] (Glucocorti [id number] coids) melon Unknown Active Unknown Anaphylaxis 2018- Holly 0-10 [place] [id number] mupirocin Unknown Active Unknown Reaction 2018- Holly Unknown 0-10 [place] [id number] NSAIDS Allergen Active Unknown Reaction 2018- Holly (Non-Steroi Group Unknown 0-10 [place] eric [id number] Anti-Inflam matory Drug) onion Unknown Active Unknown difficulty 2018- Holly breathing 0-10 [place] [id number] tapentadol Base Active Unknown Reaction 2018- Holly Ingredient Unknown 0-10 [place] [id number] lettuce Unknown Active Unknown Abdominal 2018- Holly pain/stomach 0-10 [place] cramps [id number] vinegar Unknown Active Unknown Wheezing, 2018- Holly trouble 0-10 [place] breathing [id number] applesauce Unknown Active Unknown throat 2018- Holly swelling 0-10 [place] [id number] enviromenta Unknown Active Unknown sneezing 2018- Holly l 0-10 [place] US351598 chlorine Unknown Active Unknown Reaction 2018- Holly Unknown 0-10 [place] [id number] peppers Unknown Active Unknown Reaction 2018- Holly Unknown 0-10 [place] [id number] Bandaids Unknown Active Unknown blisters 2018- Holly 0-10 [place] [id number] Medications Ordered Filled Start Stop Current Ordering Indication Dosage Frequency Signature Comments Components Medication Medication Date Date Medication? Clinician (SIG) Name Name No Known No Known No None None None Medications Medications For This For This Patient Patient Procedures This patient has no known procedures. Results This patient has no known results.
--- OUTSIDE RECORDS SUMMARY | 2019-01-29 02:49 | XMS REPORT | Continuity of Care Document ---
:1950 External Reference #:[id number] Author Name Kaiden Duncan DO, MPH Address [address] [place] [address], [address] [place] [address] Care Team Providers Name Role Phone Anila Saul M.D. - Internal Care Team Information Manager Of Data Medicine Problems Active Problems Provider Date Type 2 diabetes mellitus Kaiden Duncan DO, MPH Onset: 09/03/2013 Social History Type Date Description Comments Sex Unknown Cigarette Use Former Cigarette Smoker 4 Packs Daily ETOH Use Denies alcohol use Tobacco Use Start: Unknown End: Unknown Patient is a former smoker Smoking Status Reviewed: 01/03/19 Patient is a former smoker Allergies, Adverse [...] 01/20/2014 8mg Tablets q3-4 hours as DO, [facility] directed chronic pain patient Lidocaine sig: apply [...] mouth Unknown 1mg Tablets every day Ipratropium [place] Unknown 0.06% Solution Levocetirizine sig: take 1 [...] daily Unknown 10mg Tablets Azelastine HCL Unknown 137mcg/[place] Solution Dexilant si po qd 30caps Unknown [...] Available Vital Signs Date Vital Result Comment 01/03/2019 1:23pm BP Systolic 124 mmHg BP Diastolic 86 mmHg Heart Rate 84 /min Respiratory Rate 20 /min Height 64 inches 5'4" Weight 151.00 lb Pain Level 9 Pain at this time. Pain Level With Medicine 9 on average with meds Pain Level Without Medicine 9 without meds BMI (Body Mass Index) 25.9 kg/m2 11/21/2018 3:27pm BP Systolic 120 mmHg BP Diastolic 74 mmHg Heart Rate 76 /min Respiratory Rate 20 /min Height 64 inches 5'4" Weight 154.00 lb Pain Level 9 Pain at this time. Pain Level With Medicine 9 on average with meds Pain Level Without Medicine 9 without meds BMI (Body Mass Index) 26.4 kg/m2 Results Description No Information Available Procedures Date Code Description Status 11/21/2018 50223 Therapeutic, Prophylactic Or Diagnostic Injection Subq/Im Completed 11/01/2018 45475 Therapeutic, Prophylactic Or Diagnostic Injection Subq/Im Completed 09/23/2018 70764 Therapeutic, Prophylactic Or Diagnostic Injection Subq/Im Completed 08/26/2018 79257 Therapeutic, Prophylactic Or Diagnostic Injection Subq/Im Completed 07/23/2018 43713 Therapeutic, Prophylactic Or Diagnostic Injection Subq/Im Completed Medical Devices Description No Information Available Encounters Type Date Location Provider Dx Diagnosis Office Visit 11/21/2018 Main Office as Of Kaiden Duncan DO, G89.21 Chronic pain due 3:15p 03/22/13 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 M54.2 Cervicalgia M54.5 Low back pain R53.83 Other fatigue 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 Office Visit 11/01/2018 1:45p Main Office as Kaiden Duncan G89.T[place] Chronic pain due Of 03/22/13 DO, 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 M54.2 Cervicalgia M54.5 Low back pain 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 R53.83 Other fatigue Office Visit 09/23/2018 3:15p Main Office as Kaiden Duncan 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, 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 M54.2 Cervicalgia M54.5 Low back pain R53.83 Other fatigue 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 Office Visit 08/26/2018 2:30p Main Office as Kaiden Duncan 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, 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 M54.2 Cervicalgia M54.5 Low back pain Z79.891 FDC (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 analgesic R53.83 Other fatigue Office Visit 07/23/2018 2:45p Main Office as Duncan, Kaiden, 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, 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 M54.5 Low back pain M54.2 Cervicalgia R53.83 Other fatigue Z79.891 FDC (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 analgesic Assessments Date Code Description Provider 01/03/2019 G89.21 Chronic pain due to trauma Duncan, Kaiden, DO, MPH 01/03/2019 M54.2 Cervicalgia Duncan, Kaiden, DO, MPH 01/03/2019 M54.5 Low back pain Duncan, Kaiden, DO, MPH 01/03/2019 Z79.891 FDC (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 analgesic Duncan, Akiden , DO, MPH 01/03/2019 R53.83 Other fatigue Duncan, Kaiden, DO, MPH 01/03/2019 Z71.89 Other specified counseling Duncan, Kaiden, DO, MPH 11/21/2018 G89.21 Chronic pain due to trauma Duncan, Kaiden, DO, MPH 11/21/2018 M54.2 Cervicalgia Duncan, Kaiden, DO, MPH 11/21/2018 M54.5 Low back pain Duncan, Kaiden, DO, MPH 11/21/2018 R53.83 Other fatigue Duncan, Kaiden, DO, MPH 11/21/2018 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 Duncan, Kaiden , DO, MPH 11/01/2018 G89.21 Chronic pain due to trauma Duncan, Kaiden, DO, MPH 11/01/2018 M54.2 Cervicalgia Duncan, Kaiden, DO, MPH 11/01/2018 M54.5 Low back pain Duncan, Kaiden, DO, MPH 11/01/2018 Z79.891 FDC (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 analgesic Duncan, Kaiden , DO, MPH 11/01/2018 R53.83 Other fatigue Duncan, Kaiden, DO, MPH 09/23/2018 G89.21 Chronic pain due to trauma Duncan, Kaiden, DO, MPH 09/23/2018 M54.2 Cervicalgia Duncan, Kaiden, DO, MPH 09/23/2018 M54.5 Low back pain Duncan, Kaiden, DO, MPH 09/23/2018 R53.83 Other fatigue Kaiden Duncan DO, MPH 09/23/2018 Z79.891 FDC (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 analgesic Kaiden Duncan DO, MPH 08/26/2018 G89.21 Chronic pain due to trauma aKiden Duncan DO, MPH 08/26/2018 M54.2 Cervicalgia Kaiden Duncan DO, MPH 08/26/2018 M54.5 Low back pain Kaiden Duncan DO, MPH 08/26/2018 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 Kaiden Duncan DO, MPH 08/26/2018 R53.83 Other fatigue Kaiden Duncan DO, MPH 07/23/2018 G89.21 Chronic pain due to trauma Kaiden Duncan DO, MPH 07/23/2018 M54.5 Low back pain Kaiden Duncan DO, MPH 07/23/2018 M54.2 Cervicalgia Kaiden Duncan DO, MPH 07/23/2018 R53.83 Other fatigue Kaiden Duncan DO, MPH 07/23/2018 Z79.891 FDC (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 analgesic Kaiden Duncan DO, MPH Plan of Treatment Future Appointment(s):01/30/2019 3:15 pm - Kaiden Duncan DO MPH at Main Office as Of 03/22/1410 - Kaiden Duncan DO, MPHG89.21 Chronic pain [...] and comfortable when current medical therapy is rendered.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New Labs:Urine Drug Screen, Ordered: 01/03/19Comments:Urine drug screen sample taken today to monitor opiate use and to monitor use of illicit substances.Will discuss results at next appointment.The following tests were ordered:6 AM, AMPH, JIL, IGGY, BUP, CARIS, COCM, ETG, FENT, MCSHSG, OPI, OXY, PCP, TAPEN, XTSY, ZOLP. A urine drug test (UDT) was ordered for this patient and collected on site today. Creatinine has been ordered as well for specimen validity, not for kidney function. Preliminary UDT results are not final and should not be used to determine patient care or plan of treatment. Initially a qualitative immunoassay screen will bedone. Any inconsistent or positive findings will be further tested with a more comprehensive quantitative confirmation LCMS study. It is part of the treatment process of prescribing controlled substances and is considered standard of care.R53.83 Other fatigueComments:Symptoms and complaints discussed and reviewed [...] time. Will continue to monitor ETOH in UDT' s.AllComments:Continue current medical pain management; injection therapy, osteopathic [...] while maintaining satisfactory side effect profile andminimizing long term care phlebotomist end-organ damage. Importance of regular nutrition throughout the day discussed.Activity as toleratedContinue with PCP Functional Status Description No Information Available Mental Status Description No Information Available Referrals Description No Information Available
[2019-01-29] MEDS ORDERED: HYDROmorphone TAB* 4 MG PO PRN (06:08)
--- NOTE | 2019-01-29 06:48 | HP ---
History of Present Illness - History of Present Illness Reason for Visit: fall History of Present Illness: 68 yo female with history of DM2 came to the hospital after a fall. She has of history of multiple admissions for nausea/vomiting and lightheadedness. Vomiting with unclear etiology. Pt has been vomiting again for 2 days and became weak and lightheaded. She fell around midnight this morning and hit her head. She came in with periorbital contusion and swelling. Her blood pressure was very low. Ct head was done which did not show any fractures. Pt is receiving multiple boluses for her blood pressure. - Past Medical History Cardiac: Hyperlipidemia Gastrointestinal: Constipation - Past Surgical History Past Surgical History: Hysterectomy - Past Family History Family History: Cancer - Past Social History Smoke: No Alcohol: None Drugs: None Lives: Alone Review of Systems - Measurements Intake and Output: Intake and Output Last 24 Hours 01/26/19 01/27/19 01/28/19 01/29/19 06:59 06:59 06:59 06:59 Intake Total 1000 Balance 1000 Weight 220 lb Intake: IV Fluids 1000 - Review of Systems Constitutional Symptoms: Positive: Weakness, Fatigue, Unexplained Falls Negative: Weight Gain, Weight Loss, Fever, Night Sweats, Other Dermatology: Negative: Normal, Rash, Skin Lesions, Cancer, Skin Lumps, Other HEENT: Positive: Other - facial trauma Thyroid: Negative: Normal, Goiter, Thyroid Nodule, Cold Intolerance, Heat Intolerance , Sweatiness, Tremor, Frequent Defecation, Constipation, Palpitations, Primary Hypothyroidism, Primary Hyperthyroidism, Weight Loss, Weight Gain, Change in Skin/Hair, Change in Menstruation, Radiation Exposure, Other Pulmonary: Negative: Normal, Cough, Sputum, Hemoptysis, Wheezing, Respiratory Distress, Shortness of Breath, COPD, Asthma, Exercise Intolerance, Home Oxygen, Other Cardiology: Negative: Normal, Chest Pain, Shortness of Breath, Palpitations, Swelling of Ankles, Peripheral Vascular Dis, Edema, Faintness, Syncope, Claudication, Proximal NocturnalDyspnea, Orthopnoea, Other Gastroenterology: Negative: Normal, Abdominal Pain, Nausea, Vomiting, Anorexia, Indigestion, Difficulty Swallowing, Heartburn, Constipation, Diarrhea, Blood in Stools, Change in Bowel Habits, Haematemesis, Melena, Other Genital - Urinary: Negative: Normal, Dysuria, Hematuria, Polyuria, Nocturia, Other Musculoskeletal: Negative: Joint Pain, Joint Stiffness, Arthritis, Osteoporosis, Low Back Pain , Sciatica, Joint Deformities, Kyphoscoliosis, Other Endocrinology: Negative: Normal, Thyroid Problems, Adrenal Problems, Gonadal Problems, Family Hx Endocrine Disorders, Obesity, Diabetes Mellitus, Hyperglycemia, Hx Hypoglycemia, Diabetic Foot Ulcers, Calluses, Hirsutism, Menstrual Abnormalities , Polydipsia, Polyuria, Gonadal Problems, Gynecomastia, Pituitary disease, Other Hematologic/Lymphatic: Negative: Anemia, Easy Bruising, Hx Leukemia, Hx Lymphoma, Use of Anticoagulant, Use of Antiplatelet Drugs, Other Neurology: Negative: Normal, Headache, Migraines, Change in Vision, Diplopia, Dizziness , Change in Balancing, Change in Coordination, Change in Memory, Change in Speech, Change in Sphincter Function, Change in Walking, Numbness\Paresthesiae, Unexplained Weakness, Hx of Stroke\TIA, Hx of Seizures, Other Psychiatry: Negative: Normal, Depression, Anxiety, Depressed Mood, Anhedonia, Sexual Dysfunction, Weight Change, Guilt Feelings, Tearfulness, Unusual Fatigue, Unusual Anxiety, Suicidal Ideation, Hypomania, Eating Disorders, Other Allergic/Immunologic: Negative: Hx Anaphylaxis, Hx Angioedema, Hx Environmental, Hx Seasonal, Asthma, Hx HIV, Immunocompromise, Swollen Glands LymphNodes, Other Objective Active Medications: Baclofen (Lioresal Tab*) 20 mg PO QID PRN PRN Reason: PAIN Dexlansoprazole (Dexilant (Nf)) 60 mg PO DAILY [facility] Hydromorphone HCl (Dilaudid Tab(Nf)) 8 mg PO Q4HR PRN PRN Reason: PAIN - MODERATE Sodium Chloride (Ns 0.9% 1000 Ml) 1,000 mls @ 100 mls/hr IV PER RATE [facility] Vital Signs - 8 hr 01/29/19 01/29/19 01/29/19 01:07 01:12 01:42 Temperature 98.0 F Pulse Rate 99 70 63 Respiratory 18 18 Rate Blood Pressure 109/64 (mmHg) O2 Sat by Pulse 96 96 93 Oximetry 01/29/19 01/29/19 01/29/19 01:43 01:49 02:08 Temperature Pulse Rate 62 62 Respiratory 12 24 18 Rate Blood Pressure 117/86 (mmHg) O2 Sat by Pulse 94 93 Oximetry 01/29/19 01/29/19 01/29/19 02:16 02:59 03:00 Temperature Pulse Rate 54 53 54 Respiratory 13 16 17 Rate Blood Pressure 90/51 110/61 (mmHg) O2 Sat by Pulse 90 100 100 Oximetry 01/29/19 01/29/19 01/29/19 03:16 03:17 03:57 Temperature Pulse Rate 53 54 66 Respiratory 16 17 15 Rate Blood Pressure 74/49 70/44 125/99 (mmHg) O2 Sat by Pulse 100 97 Oximetry 01/29/19 01/29/19 01/29/19 04:00 04:57 05:00 Temperature Pulse Rate 64 60 58 Respiratory 16 9 18 Rate Blood Pressure (mmHg) O2 Sat by Pulse 100 99 98 Oximetry 01/29/19 01/29/19 01/29/19 05:01 05:03 05:07 Temperature Pulse Rate 59 59 57 Respiratory 14 10 12 Rate Blood Pressure 58/32 82/42 (mmHg) O2 Sat by Pulse 98 97 99 Oximetry Oxygen Devices in Use Now: None Appearance: slugghish, NID Eyes: - - periorbital echymosis and edema Neck: NL Appearance and Movements; NL JVP, Trachea Midline Respiratory: Symmetrical Chest Expansion and Respiratory Effort, Clear to Auscultation, Clear to Percussion Cardiovascular: NL Sounds; No Murmurs; No JVD, No Edema Abdominal: NL Sounds; No Tenderness; No Distention Lymphatic: No Cervical Adenopathy, No Inguinal Adenopathy Skin: No Rash or Ulcers, - - bruises Neurological: Alert and Oriented x 3 Result Diagrams: 01/29/19 01:37 01/29/19 01:37 Assess/Plan/Problems-Billing Assessment: - Patient Problems (1) Fall Current Visit: Yes Status: Acute Comment: pt sustained a fall this morning. She is very weak and dehydrated from poor oral intake and N/V. She apparently has a hx of vomiting with unclear etiology. This time she has been vomiting for about 2 days and became very weak. She sustained facial trauma due to the fall. No fractures aggressive fluid hydration. zofran PRN abd Xr for Vomiting (2) Constipation Current Visit: No Status: Acute Code(s): K59.00 - CONSTIPATION, UNSPECIFIED SNOMED Code(s): 19135418 (3) Opioid dependence Current Visit: No Status: Chronic Code(s): F11.20 - OPIOID DEPENDENCE, UNCOMPLICATED SNOMED Code(s): 72604409 Comment: on oral dilaudid prn at home (4) Type 2 diabetes, uncontrolled, with neuropathy Current Visit: No Status: Chronic Code(s): E11.40 - TYPE 2 DIABETES MELLITUS WITH DIABETIC NEUROPATHY, UNSP; E11.65 - TYPE 2 DIABETES MELLITUS WITH HYPERGLYCEMIA SNOMED Code(s): 49449584 Comment: npo POC FS Q6H (5) SRINIVAS (acute kidney injury) Current Visit: Yes Status: Acute Code(s): N17.9 - ACUTE KIDNEY FAILURE, UNSPECIFIED SNOMED Code(s): 93001609 Comment: IVF
[2019-01-29] MEDS: HYDROMORPHONE 8 MG PO PRN ×2 (10:36→22:54)
[2019-01-29] MEDS: NS 0.9% 1000 ML** 1,000 ML IV SCH (11:26)
--- NOTE | 2019-01-29 12:13 | PN ---
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 Saul who was not made aware of this admission by night hospitalist. Labs: HypoNA, mild SRINIVAS AXR: Full of stool Maxilofacial CT: Orbital bruising Pt is tearful on exam, has neck and shoulder pain, no samuel chest pain though EKG and trops are negative. She reports no BM in several days which lead to her N/V and dehydration. No current nausea or vomiting. Objective Active Medications: Baclofen (Lioresal Tab*) 20 mg PO QID PRN PRN Reason: PAIN Hydromorphone HCl (Dilaudid Tab(Nf)) 8 mg PO Q4HR PRN PRN Reason: PAIN - MODERATE Last Admin: 01/29/19 10:36 Dose: 8 mg Sodium Chloride (Ns 0.9% 1000 Ml) 1,000 mls @ 100 mls/hr IV PER RATE [facility] Last Admin: 01/29/19 11:26 Dose: 100 mls/hr Ondansetron HCl (Zofran Inj*) 4 mg IV Q8H PRN PRN Reason: NAUSEA Pantoprazole Sodium (Protonix Tab*) 40 mg PO DAILY [facility] Vital Signs - 8 hr 01/29/19 01/29/19 01/29/19 04:57 05:00 05:01 Pulse Rate 60 58 59 Respiratory 9 18 14 Rate Blood Pressure (mmHg) O2 Sat by Pulse 99 98 98 Oximetry 01/29/19 01/29/19 01/29/19 05:03 05:07 05:26 Pulse Rate 59 57 51 Respiratory 10 12 9 Rate Blood Pressure 58/32 82/42 72/43 (mmHg) O2 Sat by Pulse 97 99 97 Oximetry 01/29/19 01/29/19 01/29/19 05:56 06:00 06:26 Pulse Rate 50 48 Respiratory Rate Blood Pressure 83/46 113/57 (mmHg) O2 Sat by Pulse 99 100 Oximetry 01/29/19 01/29/19 01/29/19 07:00 07:27 07:56 Pulse Rate 62 57 62 Respiratory Rate Blood Pressure 107/65 99/62 (mmHg) O2 Sat by Pulse 100 98 Oximetry 01/29/19 01/29/19 01/29/19 08:00 08:56 09:00 Pulse Rate 57 60 58 Respiratory Rate Blood Pressure 93/54 (mmHg) O2 Sat by Pulse 97 90 85 Oximetry 01/29/19 01/29/19 01/29/19 09:26 09:56 10:00 Pulse Rate 58 64 62 Respiratory Rate Blood Pressure 107/57 109/64 (mmHg) O2 Sat by Pulse 93 100 95 Oximetry Oxygen Devices in Use Now: None Appearance: Tearful woman, able to be coached, no acute distress, orbital bruising Eyes: PERRLA Ears/Nose/Mouth/Throat: - - Poor dentition Respiratory: Symmetrical Chest Expansion and Respiratory Effort, Clear to Auscultation Cardiovascular: NL Sounds; No Murmurs; No JVD, RRR Abdominal: NL Sounds; No Tenderness; No Distention, No Hepatosplenomegaly Lymphatic: No Cervical Adenopathy Extremities: No Edema, - - Bruising to R shoulder and back FROM in all 4 ext Skin: No Rash or Ulcers Neurological: Alert and Oriented x 3 Result Diagrams: 01/29/19 01:37 01/29/19 01:37 Assess/Plan/Problems-Billing Assessment: 68F PMH chronic pain (fibro, arthritis) on fci opiate pain medication and c/b dependence and chronic constipation, IDDM, asthma, HTN, migraine, rheumatologic dz vs demylenating dz on MTX who presented after mechanical fall caused by dehydration from N/V likely form opiate induced constipation, also with SRINIVAS, likely pre renal - Patient Problems (1) Fall Current Visit: Yes Status: Acute Comment: -Mechanical fall 2/2 to N/V and dehyrdation with orbital bruising, Maxillofacial CT without any fracture -Pt c/o shoulder and neck pain, if no improvement will order R shoulder radiograph, on exam limited active ROM, but FROM on passive. -PT/OT in place -Pain control with Lidocaine patch (2) SRINIVAS (acute kidney injury) Current Visit: Yes Status: Acute Code(s): N17.9 - ACUTE KIDNEY FAILURE, UNSPECIFIED SNOMED Code(s): 30347747 Comment: -Likely pre renal from N/V -IVF, CTM -Holding Bumex-no clear indication for diuretic given normal echo on last hospitlization (3) Constipation Current Visit: No Status: Acute Code(s): K59.00 - CONSTIPATION, UNSPECIFIED SNOMED Code(s): 83489800 Comment: -Acute on chronic leading to N/V -PRN Zofran, IVF total of 3L NS, now at 100cc/hr -Start Plyethlyne glycol, start dulcolax suppository, start linzess -Opiate induced, favor enema over oral given N/V if unable to have BM today (4) Autoimmune disease Current Visit: No Status: Chronic Code(s): D89.89 - OTH DISRD INVOLVING THE IMMUNE MECHANISM, NEC SNOMED Code(s): 58508696 Comment: -Holding home MTX (5) Diabetes mellitus Current Visit: No Status: Chronic Priority: Low Code(s): E11.9 - TYPE 2 DIABETES MELLITUS WITHOUT COMPLICATIONS SNOMED Code(s): 63844024 Comment: -IDDM, home regimen is 70/30 40 Q AM, 30 U QPM- hold for clear liquid diet only , lispro SSI, resume 70/30 as tolerating diet more -Holding home metformin in setting of SRINIVAS -Optimized on statin, not on JOSE JUAN (6) Fibromyalgia Current Visit: No Status: Chronic Code(s): M79.7 - FIBROMYALGIA SNOMED Code(s): 901875166 Comment: -On Dilaudid, Oxycodone (holding), Baclofen (7) GERD (gastroesophageal reflux disease) Current Visit: No Status: Chronic Code(s): K21.9 - GASTRO-ESOPHAGEAL REFLUX DISEASE WITHOUT ESOPHAGITIS SNOMED Code(s): 781780429 Comment: -Continue PPI (8) Opioid dependence Current Visit: No Status: Chronic Code(s): F11.20 - OPIOID DEPENDENCE, UNCOMPLICATED SNOMED Code(s): 80919352 Comment: -Consider tapering 10% (9) Polypharmacy Current Visit: No Status: Chronic Code(s): Z79.899 - OTHER CARE HOME ( CURRENT) DRUG THERAPY SNOMED Code(s): 584045546 Comment: -Reports she has home health aide that helps with meds, suggest pharmacy do adequate med rec and consolidate classes where able. -Holding all supplements and vitamins -Holding Estradiol (10) Hypertension Current Visit: Yes Status: Acute Code(s): I10 - ESSENTIAL (PRIMARY) HYPERTENSION SNOMED Code(s): 25189472 Comment: -Holding Atenolol, Bumex (11) Migraine Current Visit: No Status: Acute Code(s): G43.909 - MIGRAINE, UNSP, NOT INTRACTABLE, WITHOUT STATUS MIGRAINOSUS SNOMED Code(s): 29479222 Comment: -No active issues, on Sumatriptan as outpt (12) DVT prophylaxis Current Visit: Yes Status: Acute Code(s): Z29.9 - ENCOUNTER FOR PROPHYLACTIC MEASURES, UNSPECIFIED SNOMED Code(s): 225799071 (13) Full code status Current Visit: Yes Status: Acute Code(s): Z78.9 - OTHER SPECIFIED HEALTH STATUS SNOMED Code(s): 765302851 Status and Disposition: Inpatient, PT OT ordered To Dr. Kwok 01/30
[2019-01-29] MEDS ORDERED: Dextrose 50% VIAL 50 ml IV PUSH PRN (12:30)
[2019-01-29] MEDS: Pantoprazole TAB * 40 MG TAB PO SCH (12:40)
[2019-01-29] MEDS: Baclofen TAB* 20 MG PO PRN (12:41)
[2019-01-29] MEDS: Ondansetron INJ* 2 MG/ML VIAL IV PRN ×2 (12:41→23:10)
[2019-01-29] MEDS ORDERED: Polyethylene Glycol 3350* 17 GM PACKET PO SCH (13:00)
[2019-01-29] MEDS ORDERED: HYDROmorphone INJ1* 1 MG/ML SYRINGE IV SLOW PU PRN (13:12)
[2019-01-29] MEDS: Lidocaine PATCH 5%* 1 PATCH TRANSDERM SCH (13:16)
[2019-01-29] MEDS: Heparin VIAL(*) 5000 UNITS/ML VIAL (FIVE THOUSAND) SUBCUT SCH ×2 (13:17→22:57)
[2019-01-29] MEDS: Insulin LISPRO* 1 UNITS UNIT SUBCUT SCH ×2 (17:22→22:56)
[2019-01-29 19:43] LABS: Urine Appearance Clear; Urine Bilirubin Negative (Negative); Urine Blood Negative (Negative); Urine Color Yellow; Urine Glucose Negative (Negative); Urine Ketones Negative (Negative); Urine Nitrite Negative (Negative); Urine Protein Negative (Negative); Urine Specific Gravity 1.009 (1.010-1.030); Urine Urobilinogen Negative (Negative)
[2019-01-29] MEDS: Atorvastatin* 10 MG TAB PO SCH (22:56)
[2019-01-29] MEDS: Polyethylene Glycol 3350* 17 GM PACKET PO SCH (22:57)
[2019-01-29] MEDS: Lidocaine Patch REMOVE* 1 NOTE MISC SCH (23:13)
[2019-01-30] MEDS: NS 0.9% 1000 ML** 1,000 ML IV SCH ×2 (04:11→13:52)
[2019-01-30] MEDS: Heparin VIAL(*) 5000 UNITS/ML VIAL (FIVE THOUSAND) SUBCUT SCH ×3 (07:45→21:41)
[2019-01-30] MEDS: Insulin LISPRO* 1 UNITS UNIT SUBCUT SCH ×4 (08:00→21:42)
[2019-01-30] MEDS: HYDROmorphone INJ1* 1 MG/ML SYRINGE IV SLOW PU PRN ×2 (08:33→16:15)
[2019-01-30] MEDS: Polyethylene Glycol 3350* 17 GM PACKET PO SCH ×2 (08:33→21:41)
[2019-01-30] MEDS: LINACLOTIDE 290 MCG PO SCH (08:34)
[2019-01-30] MEDS: BRIMONIDINE TARTRATE TOPICAL SCH (08:34)
[2019-01-30] MEDS: Pantoprazole TAB * 40 MG TAB PO SCH (08:34)
[2019-01-30] MEDS: Lidocaine PATCH 5%* 1 PATCH TRANSDERM SCH (08:34)
[2019-01-30] MEDS ORDERED: Estradiol (NF) 0.5 MG TAB PO SCH (09:00)
[2019-01-30 09:10] LABS: Hematocrit 38 % (35-47); Hemoglobin 13.1 g/dL (12.0-16.0); Mean Corpuscular HGB Conc 35 g/dL (31-36); Mean Corpuscular Hemoglobin 33 pg (27-31); Mean Corpuscular Volume 94 fL (80-97); Mean Platelet Volume 7.6 fL (7.4-10.4); Platelet Count 169 10^3/uL (150-450); Red Blood Count 4.03 10^6 /uL (3.70-4.87); Red Cell Distribution Width 13 % (10-15); White Blood Count 6.2 10^3/uL (3.5-10.8)
[2019-01-30 09:24] LABS: BUN/Creatinine Ratio 17.9 (8-20); Calcium 8.5 mg/dL (8.6-10.3); EGFR African American 88.3 (>60); Potassium 4.5 mmol/L (3.5-5.0)
[2019-01-30 10:43] LABS: C Reactive Protein 1.08 mg/L (<8.01)
[2019-01-30 10:53] LABS: Magnesium 2.1 mg/dL (1.9-2.7); Phosphorus 3.1 mg/dL (2.5-5.0)
[2019-01-30] MEDS: Magnesium Hydroxide LIQ* 30 ML UDC PO PRN ×2 (13:46→21:42)
[2019-01-30] MEDS: HYDROMORPHONE 8 MG PO PRN ×2 (13:50→19:29)
[2019-01-30] MEDS: Baclofen TAB* 20 MG PO PRN (19:29)
[2019-01-30] MEDS: Atorvastatin* 10 MG TAB PO SCH (21:43)
[2019-01-30] MEDS: Lidocaine Patch REMOVE* 1 NOTE MISC SCH (21:43)
[2019-01-30] MEDS: Ondansetron INJ* 2 MG/ML VIAL IV PRN (23:20)
[2019-01-31] MEDS ORDERED: SUMAtriptan SQ* 6 MG/0.5 ML VIAL SUBCUT ONE
[2019-01-31] MEDS: HYDROmorphone INJ1* 1 MG/ML SYRINGE IV SLOW PU PRN ×3 (00:26→20:45)
[2019-01-31] MEDS ORDERED: SUMAtriptan SQ* 6 MG/0.5 ML VIAL SUBCUT PRN (02:00)
[2019-01-31] MEDS: Baclofen TAB* 20 MG PO PRN ×2 (05:15→22:07)
[2019-01-31] MEDS: Heparin VIAL(*) 5000 UNITS/ML VIAL (FIVE THOUSAND) SUBCUT SCH ×3 (05:15→21:52)
[2019-01-31] MEDS: HYDROMORPHONE 8 MG PO PRN ×2 (05:15→13:37)
[2019-01-31 06:48] LABS: ABS Eosinophils 0.2 10^3/ul (0-0.6); ABS Lymphocytes 3.3 10^3/ul (1.0-4.8); ABS Monocytes 0.7 10^3/ul (0-0.8); ABS Neutrophils 2.4 10^3/ul (1.5-7.7); Eosinophil % 2.9 %; Hematocrit 38 % (35-47); Hemoglobin 12.9 g/dL (12.0-16.0); Lymphocyte % 49.9 %; Mean Corpuscular HGB Conc 34 g/dL (31-36); Mean Corpuscular Hemoglobin 32 pg (27-31); Mean Corpuscular Volume 94 fL (80-97); Mean Platelet Volume 7.9 fL (7.4-10.4); Nucleated Red Blood Cells % 0.1; Platelet Count 187 10^3/uL (150-450); Red Blood Count 4.08 10^6 /uL (3.70-4.87); Red Cell Distribution Width 14 % (10-15); White Blood Count 6.6 10^3/uL (3.5-10.8)
[2019-01-31 07:04] LABS: Anion Gap 6 mmol/L (2-11); BUN/Creatinine Ratio 14.5 (8-20); Blood Urea Nitrogen 11 mg/dL (6-24); C Reactive Protein < 1.00 mg/L (<8.01); CO2 Carbon Dioxide 23 mmol/L (22-32); Calcium 8.5 mg/dL (8.6-10.3); Chloride 110 mmol/L (101-111); EGFR Non-African American 75.2 (>60); Glucose 140 mg/dL (70-100); Potassium 4.3 mmol/L (3.5-5.0); Sodium 139 mmol/L (135-145)
[2019-01-31] MEDS: Polyethylene Glycol 3350* 17 GM PACKET PO SCH ×2 (08:15→21:51)
[2019-01-31] MEDS: Insulin LISPRO* 1 UNITS UNIT SUBCUT SCH ×4 (08:16→21:52)
[2019-01-31] MEDS: Lidocaine PATCH 5%* 1 PATCH TRANSDERM SCH (08:16)
[2019-01-31] MEDS: Pantoprazole TAB * 40 MG TAB PO SCH (08:16)
[2019-01-31] MEDS: LINACLOTIDE 290 MCG PO SCH (08:17)
[2019-01-31] MEDS: BRIMONIDINE TARTRATE TOPICAL SCH (08:17)
[2019-01-31] MEDS: Ondansetron INJ* 2 MG/ML VIAL IV PRN ×2 (08:32→16:02)
[2019-01-31] MEDS ORDERED: Polyethylene Glycol 3350* 17 GM PACKET PO SCH (09:00)
[2019-01-31] MEDS: oxyCODONE SR TAB(*) 10 MG TAB.SR PO SCH ×2 (10:36→21:51)
[2019-01-31] MEDS: Atenolol TAB* 25 MG PO SCH (10:37)
[2019-01-31] MEDS: Cetirizine* 10 MG TAB PO SCH (10:37)
--- NOTE | 2019-01-31 18:54 | CONS ---
GASTROENTEROLOGY CONSULT: DATE OF CONSULT: 01/31/19 CONSULTING PHYSICIAN: Anila Saul MD. REASON FOR CONSULTATION: Nausea and vomiting with recent fall and bruising to the face and neck. HISTORY OF PRESENT ILLNESS: This 68-year-old woman with diabetes on insulin, chronic pain syndrome, polypharmacy, superior vena cava syndrome, fibromyalgia, and numerous other problems was admitted 2 days ago after a fall at home. She appeared somewhat dehydrated as her BUN was 31 and Cr 1.93 up from her baseline. She has been treated conservatively and her BUN today is 11. Vital signs are normal with pulse of 68, which is comparable to the pulse in the emergency room, although one recording said 120. She has an extraordinarily complex past medical history, which includes sigmoid diverticular resection in 1994 and takedown of the colostomy 4 months later, hysterectomy, appendectomy, abdominal surgical hernia repairs, cholecystectomy in 2011, [id number] being present for over 5 years; removed in 2011 (at time of GB removal) and she has listed 30 allergies or more. She has had evaluation and treatment by gastroenterology for GERD and anemia, undergoing upper endoscopy by Dr Mathew in 2014 and then in September [address] Randall bidirectional endoscopy. At the time, there was concern about iron deficiency anemia. The upper endoscopy was normal and biopsy of the duodenum normal. Colonoscopy that same day by Dr. Randall was also normal with prep not optimal, but no gross disease. Stool occult blood in July 2017 was negative. During her 2018 admission, a gastric emptying scan was normal. Dr Garcia was seeing her. At that time, she had constipation. She said the constipation has been treated right along by milk of magnesia every day and Linzess. Here, as an inpatient, she has been impressed by trying MiraLAX. She said in the past she could not tolerate MiraLAX, but that was over 10 years ago. She has had 3 stools today. Today, as an inpatient, she was brought downstairs for a nuclear medicine gastric emptying scan again and per nursing report, which was repeated and validated, she refused to eat the oatmeal. She was brought back and ate 100% of her lunch. PAST MEDICAL HISTORY: 1. Substantial obesity. 2. Type 2 diabetes, on insulin. Her urinalyses over the yrs and toady have not shown any protein. Her creatinine had been 0.76 to 0.88 recurrently, though it was 1.93 when admitted dehydrated 2 days ago. LFTs have been normal. Hemoglobin A1c has varied over the last 2-1/2 years from 7.1 to a high of 11.1 two months ago, and on this admission 9.4. 3. Fibromyalgia. 4. Superior vena cava syndrome - on Bumex at home. 5. Idiopathic neuropathy - she has been evaluated in [place]. At times, she has been on methotrexate. This was discussed in Dr Willi Keith's hospital consults. 6. History of migraines. 7. Iron deficiency - no sign of chronic gastrointestinal bleeding has been seen during an extensive review of the notes. Chronic PPI therapy would be a consideration. 8. Multiple allergies - as stated, over 30 items listed. MEDICATIONS: List of over 30 reviewed in the summary. Of GI relevance directly are: 1. Linzess. 2. Dexilant. 3. Glucophage. 4. Milk of magnesia. 5. Oxycodone twice a day. 6. Dilaudid p.r.n. REVIEW OF SYSTEMS: No history of ischemic heart disease, AR, SVT, blood clots, TB, or hemoptysis. She has had nuclear stress test that were low probability, most recently 10/28/18. She is being followed by Dr Duncan for what she describes as undifferentiated connective tissue disease. She has never had any joint surgeries. PHYSICAL EXAM: She is a substantially overweight, chronically ill-appearing woman with ecchymoses over the right orbit and neck. She also has ecchymosis to left forearm. She has an IV in place. She was in bed, calm with the lights out at 5 PM. She has no adenopathy. Her lungs are clear and heart sounds are regular. Breasts and pelvic exams deferred. The abdomen has some small ecchymosis. There are multiple scars and a bulge and asymmetry in the lela to infraumbilical area. Perianal inspection is unremarkable. Rectal reveals heightened tone and a little bit of stenosis. There is some yellow loose stool and smooth rectal mucosa. DIAGNOSTIC STUDIES/LAB DATA: Imaging - this admission, abdominal x-ray and chest x-ray show no acute disease. A large amount of stool was seen in the colon. Labs - hemoglobin 12.9, hematocrit 38, platelets 187, white count 6.6. INR 1.02 six weeks ago. Two days after admission, sodium 139, potassium 4.3, BUN 11 , creatinine 0.76, A1c 9.4. LFTs normal. Albumin 4.1. Amylase and lipase normal 6 weeks ago, as was TSH 1.13. Urinalysis is quite benign with no blood and no protein. IMPRESSION: This 68-year-old woman with longstanding diabetes that tends to be incompletely controlled as the A1c is fairly high is in a complex situation vis- a- vis her fluid and electrolyte status. She reportedly has superior vena cava syndrome and is on diuretics. No cardiology or thoracic surgery consult is seen in the chart, so the exact severity of this is unclear. It is mentioned in her CT report referencing back to 2014. This condition in combination with loosely controlled diabetes probably makes it more difficult to keep her fluid and electrolyte status in equilibrium. At this point, I do not see any sign that she would have any structural or motility disorder of the gastrointestinal tract that would benefit from further workup. Adverse GI effects of her many meds in combination over time are likely further complicating her stability. Her iron deficiency is most likely from chronic disease and chronic PPI therapy. Her polypharmacy is probably deeply rooted in her chronic disease processes, but would be a goal to simplify. [id number]/[facility] #: [id number] TIKI
[2019-01-31] MEDS: Atorvastatin* 10 MG TAB PO SCH (21:51)
[2019-01-31] MEDS: Lidocaine Patch REMOVE* 1 NOTE MISC SCH (21:52)
[2019-01-31] MEDS: Dextran 70/Hypromellose Tears Eye Drops 15 ml BTL (for Artificials Tears) BOTH EYES PRN (21:53)
[2019-02-01] MEDS: diPHENhydraMINE PO* 25 MG PO PRN (00:03)
[2019-02-01] MEDS: HYDROMORPHONE 8 MG PO PRN ×5 (00:14→21:21)
[2019-02-01] MEDS: SUMAtriptan SQ* 6 MG/0.5 ML VIAL SUBCUT PRN ×2 (00:26→12:12)
[2019-02-01] MEDS: Baclofen TAB* 20 MG PO PRN ×2 (04:33→08:55)
[2019-02-01] MEDS: HYDROmorphone INJ1* 1 MG/ML SYRINGE IV SLOW PU PRN (05:21)
[2019-02-01] MEDS: Heparin VIAL(*) 5000 UNITS/ML VIAL (FIVE THOUSAND) SUBCUT SCH ×3 (05:49→21:03)
[2019-02-01] MEDS: Polyethylene Glycol 3350* 17 GM PACKET PO SCH ×2 (08:41→21:31)
[2019-02-01] MEDS: Insulin LISPRO* 1 UNITS UNIT SUBCUT SCH ×4 (08:42→21:31)
[2019-02-01] MEDS: oxyCODONE SR TAB(*) 10 MG TAB.SR PO SCH ×2 (08:42→21:01)
[2019-02-01] MEDS: Bumetanide TAB* 2 MG PO SCH ×2 (08:43→21:02)
[2019-02-01] MEDS: Potassium Chlor TAB* 20 MEQ TAB.ER PO SCH ×2 (08:43→21:02)
[2019-02-01] MEDS: Pantoprazole TAB * 40 MG TAB PO SCH (08:43)
[2019-02-01] MEDS: Lisinopril TAB* 10 MG PO SCH (08:43)
[2019-02-01] MEDS: Cetirizine* 10 MG TAB PO SCH (08:44)
[2019-02-01] MEDS: BRIMONIDINE TARTRATE TOPICAL SCH (08:44)
[2019-02-01] MEDS: Atenolol TAB* 25 MG PO SCH (08:44)
[2019-02-01] MEDS: LINACLOTIDE 290 MCG PO SCH (08:54)
[2019-02-01] MEDS: Lidocaine PATCH 5%* 1 PATCH TRANSDERM SCH ×2 (08:54→21:03)
[2019-02-01] MEDS: Lidocaine Patch REMOVE* 1 NOTE MISC PATCH OFF SCH (10:00)
--- NOTE | 2019-02-01 11:02 | PN ---
Subjective - Subjective Reason for Note: Progress Note History: I have reviewed the electronic hospital record. She presented with a fall and this was complicated by a right periorbital hematoma and right facial contusions. She has had ongoing constipation and nausea. However, she has insisted on taking opioids as an outpatient. She has no migraine and no other new symptoms. I spoke with Dr. Fausto Vallecillo - opioid is the number one. Declined gastric emptying scan. She ate 100% lunch. She is not losing weight, albumin losing weight. She has been scoped twice in the past 2 years. Normal biopsy of the duodenum. Last year had a normal gastric emptying study. Active Problems: Active Problems Personality disorder (Chronic) F60.9 Nausea (Acute) R11.0 Facial contusion (Acute) S00.83XA Periorbital hematoma (Acute) H05.239 Fall (Acute) -Mechanical fall 2/2 to N/V and dehyrdation with orbital bruising, Maxillofacial CT without any fracture -Pt c/o shoulder and neck pain, if no improvement will order R shoulder radiograph, on exam limited active ROM, but FROM on passive. -PT/OT in place -Pain control with Lidocaine patch DVT prophylaxis (Chronic) Z29.9 Full code status (Chronic) Z78.9 Hypertension (Chronic) I10 -Holding Atenolol, Bumex Constipation (Acute) K59.00 -Acute on chronic leading to N/V -PRN Zofran, IVF total of 3L NS, now at 100cc /hr -Start Plyethlyne glycol, start dulcolax suppository, start linzess -Opiate induced, favor enema over oral given N/V if unable to have BM today Migraine (Chronic) G43.909 -No active issues, on Sumatriptan as outpt Autoimmune disease (Chronic) D89.89 -Holding home MTX Opioid dependence (Acute) F11.20 -Consider tapering 10% Diverticulosis (Chronic) K57.90 Fibromyalgia (Chronic) M79.7 -On Dilaudid, Oxycodone (holding), Baclofen GERD (gastroesophageal reflux disease) (Chronic) K21.9 -Continue PPI Polypharmacy (Chronic) Z79.899 -Reports she has home health aide that helps with meds, suggest pharmacy do adequate med rec and consolidate classes where able. -Holding all supplements and vitamins -Holding Estradiol Psychosocial impairment (Chronic) Z65.9 Arthritis (Chronic) M19.90 Diabetes mellitus (Chronic) E11.9 -IDDM, home regimen is 70/30 40 Q AM, 30 U QPM- hold for clear liquid diet only, lispro SSI, resume 70/30 as tolerating diet more -Holding home metformin in setting of SRINIVAS -Optimized on statin, not on JOSE JUAN Current Medications: Current Medications Artificial Tears (Natural Balance Tears Eye Drop) 1 drop BOTH EYES Q2H PRN PRN Reason: DRY EYE Last Admin: 01/31/19 21:53 Dose: 1 drop Atenolol (Tenormin Tab*) 25 mg PO DAILY [facility] Last Admin: 02/01/19 08:44 Dose: 25 mg Atorvastatin Calcium (Lipitor*) 5 mg PO BEDTIME [facility] Last Admin: 01/31/19 21:51 Dose: 5 mg Baclofen (Lioresal Tab*) 20 mg PO QID PRN PRN Reason: PAIN Last Admin: 02/01/19 08:55 Dose: 20 mg Bumetanide (Bumex Tab*) 2 mg PO BID [facility] Last Admin: 02/01/19 08:43 Dose: 2 mg Cetirizine HCl (Zyrtec*) 10 mg PO DAILY [facility] Last Admin: 02/01/19 08:44 Dose: 10 mg Dextrose (Dextrose 50% Vial 50 Ml*) 25 ml IV PUSH .FOR FS < 60 - SS PRN PRN Reason: FS < 60 Diphenhydramine HCl (Benadryl Po*) 25 mg PO BEDTIME PRN PRN Reason: SLEEP Last Admin: 02/01/19 00:03 Dose: 25 mg Heparin Sodium (Porcine) (Heparin Vial(*)) 5,000 units SUBCUT Q8HR [facility] Last Admin: 02/01/19 05:49 Dose: 5,000 units Hydromorphone HCl (Dilaudid Tab(Nf)) 8 mg PO Q4HR PRN PRN Reason: PAIN - MODERATE Last Admin: 02/01/19 00:14 Dose: 8 mg Hydromorphone HCl (Dilaudid Inj1s*) 1 mg IV SLOW PU Q8H PRN PRN Reason: PAIN - SEVERE Last Admin: 02/01/19 05:21 Dose: 1 mg Insulin Human Lispro (Humalog*) 0 units SUBCUT ACHS PETER; Protocol Last Admin: 02/01/19 08:42 Dose: 3 units Lidocaine (Lidoderm 5% Patch*) 1 patch TRANSDERM BEDTIME [facility] Linaclotide (Linzess (Nf)) 290 mcg PO DAILY [facility] Last Admin: 02/01/19 08:54 Dose: Not Given Lisinopril (Prinivil Tab*) 10 mg PO DAILY [facility] Last Admin: 02/01/19 08:43 Dose: 10 mg Magnesium Hydroxide (Milk Of Magnesia Liq*) 30 ml PO Q6H PRN PRN Reason: CONSTIPATION Last Admin: 01/30/19 21:42 Dose: 30 ml Nft: Brimonidine Tartrate [Mirvaso] 1 Applic) 1 applic TOPICAL DAILY [facility] Last Admin: 02/01/19 08:44 Dose: Not Given Ondansetron HCl (Zofran Inj*) 4 mg IV Q8H PRN PRN Reason: NAUSEA Last Admin: 01/31/19 16:02 Dose: 4 mg Oxycodone HCl (Oxycontin(*)) 10 mg PO Q12HR [facility] Last Admin: 02/01/19 08:42 Dose: 10 mg Pantoprazole Sodium (Protonix Tab*) 40 mg PO DAILY [facility] Last Admin: 02/01/19 08:43 Dose: 40 mg Pharmacy Profile Note (Lidocaine Patch Remove*) 1 note PATCH OFF 0900 [facility] Polyethylene Glycol/Electrolytes (Miralax*) 17 gm PO BID [facility] Last Admin: 02/01/19 08:41 Dose: 17 gm Potassium Chloride (Klor Con Er Tab*) 20 meq PO BID [facility] Last Admin: 02/01/19 08:43 Dose: 20 meq Sumatriptan Succinate (Imitrex Sq*) 6 mg SUBCUT DAILY PRN PRN Reason: MIGRAINE HEADACHE Last Admin: 02/01/19 00:26 Dose: 6 mg Home Medications: Home Medications Medication Instructions Recorded Confirmed Type metFORMIN* [Glucophage 1000 MG TAB 1,000 mg PO BID 03/31/13 01/29/19 History *] Dexlansoprazole (NF) [Dexilant 60 mg PO DAILY 07/29/14 01/29/19 History (NF)] Linaclotide (NF) [Linzess (NF)] 290 mcg PO QAM 07/29/14 01/29/19 History Ondansetron TAB* [Zofran 4 MG Tab*] 4 mg SL QID PRN 07/29/14 01/29/19 History LevoCETirizine TAB (NF) [Xyzal TAB 5 mg PO DAILY 01/27/15 01/29/19 History (NF)] Azelastine 0.15% NASAL(NF) 2 spray BOTH NARES BID 03/02/15 01/29/19 History [Astepro 0.15% NASAL (NF)] Folic Acid TAB* [Folvite TAB*] 1 mg PO DAILY 10/06/16 01/29/19 History Ipratropium Br (Nf)0.03% Nasal 1 spray BOTH NARES QID PRN 01/17/17 01/29/19 History [Ipratropium [place]] Mabank-3 Fatty Acids (Nf) [Fish Oil 1,000 mg PO BID 01/17/17 01/29/19 History (NF)] Alpha Lipoic Acid 600 mg PO DAILY 05/21/17 01/29/19 History SUMAtriptan TAB* [Imitrex TAB*] 100 mg PO DAILY PRN 05/21/17 01/29/19 History Ascorbic Acid TAB* [Vitamin C 100 mg PO DAILY 05/31/17 01/29/19 History TAB*] Atorvastatin* [Lipitor 10 MG*] 5 mg PO BEDTIME 08/10/17 01/29/19 History Baclofen TAB* [Lioresal TAB*] 20 mg PO QID PRN 08/10/17 01/29/19 History Clobetasol 0.05% OINT* 1 applic TOPICAL BID PRN 08/10/17 01/29/19 History Clotrimazole/Betamethasone* 1 applic TOPICAL BID MDD 2 weeks 08/10/17 01/29/19 History [Lotrisone Cream*] Metronidazole (TOPICAL)(NF) 1 applic TOPICAL BID PRN 08/10/17 01/29/19 History [Metrocream (NF)] Milk Thistle 1,000 mg PO DAILY 08/10/17 01/29/19 History SUMAtriptan SQ* [Imitrex SQ*] 0.5 ml SUBCUT DAILY PRN 08/10/17 01/29/19 History Atenolol TAB* [Tenormin TAB* 25 MG] 25 mg PO DAILY #30 tab 10/30/18 01/29/19 Rx Brimonidine Tartrate [Mirvaso] 1 applic TOPICAL DAILY 12/10/18 01/29/19 History Bumetanide TAB* [Bumex 2 MG TAB*] 2 mg PO BID 12/10/18 01/29/19 History Cyanocobalamin INJ * [Vitamin B12 1 ml IM MONTHLY 12/10/18 01/29/19 History INJ *] Dextran 70/Hypromellose Tears 1 drop BOTH EYES DAILY PRN 12/10/18 01/29/19 History [Natural Balance Tears Eye Drop] Insulin Degludec/Liraglutide 50 units SUBCUT DAILY 12/10/18 01/29/19 History [Xultophy 100 Unit-3.6MG/ml Pen] metHOTREXate sodium [Methotrexate] 50 mg INJ WEEKLY 12/10/18 01/29/19 History oxyCODONE SR TAB(*) [Oxycontin 10 10 mg PO Q12HR 12/10/18 01/29/19 History mg (*)] Potassium Chlor TAB* [Klor Con ER 10 meq PO BID tab.er 12/16/18 01/29/19 Rx TAB 10 MEQ*] Estradiol (NF) 1 mg PO DAILY 01/29/19 01/29/19 History HYDROmorphone TAB* [Dilaudid Tab*] 8 mg PO Q4H PRN 01/29/19 01/29/19 History Lisinopril TAB* [Prinivil TAB 10 10 mg PO DAILY 01/29/19 01/29/19 History MG*] Magnesium Hydroxide LIQ* [Milk of 30 ml PO TID PRN 01/29/19 01/29/19 History Magnesia LIQ*] Neomycin/Bacitracin/Polymyxinb 1 applic TOPICAL DAILY 01/29/19 01/29/19 History [Triple Antibiotic Ointment] Polyethylene Glycol 3350* 17 gm PO EVERY OTHER DAY 01/29/19 01/29/19 History [Miralax*] Proctosol Hc 2.5 Topical Cream 1 applic TOPICAL BID 01/29/19 01/29/19 History Magnesium Hydroxide LIQ* [Milk of 30 ml PO Q6H PRN udc 01/31/19 Rx Magnesia LIQ*] Allergies: Allergies Allergy/AdvReac Type Severity Reaction Status Date / Time methylparaben Allergy Intermediate Pain Verified 12/10/18 02:18 morphine Allergy Intermediate Hallucinati Verified 12/10/18 02:18 ons tizanidine Allergy Intermediate Swelling Verified 12/10/18 02:18 Of Face,Lips,& Throat Tricyclic Compounds Allergy Intermediate Altered Verified 12/10/18 02:18 Mental Status diphenhydramine Allergy Mild See Comment Verified 12/12/18 22:03 hydromorphone Allergy Mild See Comment Verified 12/10/18 02:18 itraconazole Allergy Mild Rash Verified 12/10/18 02:18 lanolin Allergy Mild Rash Verified 12/10/18 02:18 milnacipran Allergy Mild Rash And Verified 12/10/18 02:18 Itching mometasone furoate Allergy Mild Headache Verified 12/10/18 02:18 naloxone Allergy Mild Headache Verified 12/10/18 02:18 ondansetron Allergy Mild Headache Verified 12/10/18 02:18 oxycodone Allergy Mild Palpitation Verified 12/10/18 02:18 s oxymorphone Allergy Mild Palpitation Verified 12/10/18 02:18 s Penicillins Allergy Mild Rash Verified 12/10/18 02:18 pentazocine Allergy Mild Palpitation Verified 12/10/18 02:18 s propoxyphene Allergy Mild Rash Verified 12/10/18 02:18 sulfasalazine Allergy Mild Rash Verified 12/10/18 02:18 talc Allergy Mild Rash Verified 12/10/18 02:18 tramadol Allergy Mild Muscle Ache Verified 12/10/18 02:18 trazodone Allergy Mild Insomnia Verified 12/10/18 02:18 Adhesive Tape Allergy Unknown Unknown Verified 12/10/18 02:18 Reaction Details alprazolam Allergy Unknown Unknown Verified 12/10/18 02:18 Reaction Details aspirin Allergy Unknown Unknown Verified 12/10/18 02:18 Reaction Details cefaclor Allergy Unknown Unknown Verified 12/10/18 02:18 Reaction Details clarithromycin Allergy Unknown Unknown Verified 12/10/18 02:18 Reaction Details codeine Allergy Unknown Unknown Verified 12/10/18 02:18 Reaction Details diazepam Allergy Unknown Unknown Verified 12/10/18 02:18 Reaction Details doxycycline Allergy Unknown Unknown Verified 12/10/18 02:18 Reaction Details duloxetine Allergy Unknown Unknown Verified 12/10/18 02:18 Reaction Details fentanyl Allergy Unknown See Comment Verified 12/10/18 02:18 fluoxetine Allergy Unknown Unknown Verified 12/10/18 02:18 Reaction Details gabapentin Allergy Unknown See Comment Verified 12/10/18 02:18 hydroxychloroquine Allergy Unknown Unknown Verified 12/10/18 02:18 Reaction Details paroxetine Allergy Unknown Unknown Verified 12/10/18 02:18 Reaction Details adhesive Allergy Blisters Verified 12/10/18 02:18 apple Allergy Anaphylatic Verified 12/10/18 02:18 Shock black pepper Allergy Hives/Diff. Verified 12/10/18 02:18 Breathing/I tching Bleach (Sodium Hypochlorite) Allergy Unknown Verified 12/10/18 02:18 Reaction Details capsaicin Allergy Unknown Verified 12/10/18 02:18 Reaction Details cigarette smoke Allergy Difficulty Verified 12/10/18 02:18 Breathing Corticosteroids Allergy Unknown Verified 12/10/18 02:18 (Glucocorticoids) Reaction Details melon Allergy Anaphylatic Verified 12/10/18 02:18 Shock mupirocin Allergy Unknown Verified 12/10/18 02:18 Reaction Details NSAIDS (Non-Steroidal Allergy Unknown Verified 12/10/18 02:18 Anti-Inflamma Reaction Details onion Allergy Hives/Diff. Verified 12/10/18 02:18 Breathing/I tching pepper (genus Capsicum) Allergy Unknown Verified 12/10/18 02:18 Reaction Details tapentadol [From Nucynta] Allergy Unknown Verified 12/10/18 02:18 Reaction Details lettuce AdvReac Stomach Verified 12/10/18 02:18 Cramps VINEGAR Allergy Intermediate TROUBLE Uncoded 12/10/18 02:18 BREATHING ENVRIONMENTAL Allergy Mild Sneezing Uncoded 12/10/18 02:18 BANDAIDS AdvReac Mild Blisters Uncoded 12/10/18 02:18 Objective - Vital Signs Vital Signs: Vital Signs 01/31/19 01/31/19 01/31/19 11:15 13:30 15:15 Temperature 98 F 98.3 F Pulse Rate 72 66 Respiratory 16 16 16 Rate Blood Pressure 144/66 152/69 (mmHg) O2 Sat by Pulse 94 97 Oximetry 01/31/19 01/31/19 01/31/19 19:17 20:30 20:45 Temperature 97.7 F Pulse Rate 69 Respiratory 20 18 16 Rate Blood Pressure 134/65 (mmHg) O2 Sat by Pulse 99 Oximetry 01/31/19 01/31/19 01/31/19 21:45 21:51 23:47 Temperature 98 F Pulse Rate 69 Respiratory 16 16 16 Rate Blood Pressure 154/77 (mmHg) O2 Sat by Pulse 97 Oximetry 02/01/19 02/01/19 02/01/19 00:02 00:03 02:00 Temperature Pulse Rate Respiratory 16 16 18 Rate Blood Pressure (mmHg) O2 Sat by Pulse Oximetry 02/01/19 02/01/19 02/01/19 03:21 05:21 07:15 Temperature 98.6 F Pulse Rate 55 Respiratory 16 20 12 Rate Blood Pressure 139/66 (mmHg) O2 Sat by Pulse 97 Oximetry 02/01/19 02/01/19 07:30 08:42 Temperature 97.8 F Pulse Rate 52 Respiratory 12 15 Rate Blood Pressure 139/68 (mmHg) O2 Sat by Pulse 97 Oximetry - Intake and Output Intake and Output: Intake & Output 01/29/19 01/30/19 01/31/19 02/01/19 11:59 11:59 11:59 11:59 Intake Total 1000 1609 3720 1040 Balance 1000 1609 3720 1040 Weight 220 lb 156 lb 4.8 oz Intake: IV Fluids 8290 098 3487 NS (0.9%) 369 3240 Oral 5495 692 5375 Other: Estimated Void Large Medium Medium # Bowel Movements 0 1 1 Estimated Stool Amount Medium Medium # Voids 1 1 3 ADLs: Meal Record Start: 01/29/19 12: 11 Freq: DAILY@0900,1400,1800 Status: Active Protocol: Created 01/29/19 12:11 System (Rec: 01/29/19 12:11 System [facility]-9) Document 01/29/19 14:00 [id number] (Rec: 01/29/19 14:34 [id number] MED-C11) Document 01/29/19 18:00 [id number] (Rec: 01/29/19 18:40 [id number] MED-C05) Document 01/30/19 09:00 [id number] (Rec: 01/30/19 18:51 [id number] MED-C09) Document 01/30/19 14:00 [id number] (Rec: 01/30/19 18:53 [id number] MED-C09) Document 01/31/19 09:00 [id number] (Rec: 01/31/19 09:31 [id number] MED-C04) Document 01/31/19 13:54 [id number] (Rec: 01/31/19 13:54 [id number] MED-C04) Document 01/31/19 18:00 [id number] (Rec: 01/31/19 18:01 [id number] MED-C14) Intake and Output Start: 01/29/19 01: 24 Freq: Status: Active Protocol: Created 01/29/19 01:24 System (Rec: 01/29/19 01:24 System ED-C05) Intake and Output Start: 01/29/19 12: 11 Freq: DAILY@0600,1400,2200 Status: Active Protocol: Created 01/29/19 12:11 System (Rec: 01/29/19 12:11 System [id number]-[id number]) Document 01/29/19 14:00 [id number] (Rec: 01/29/19 14:34 [id number] MED-C11) Document 01/29/19 15:58 [id number] (Rec: 01/29/19 15:58 [id number] MED-C05) Document 01/29/19 22:00 [id number] (Rec: 01/30/19 00:31 [id number] MED-C13) Document 01/30/19 05:06 [id number] (Rec: 01/30/19 05:38 [id number] MED-C13) Document 01/30/19 14:00 [id number] (Rec: 01/30/19 18:53 [id number] MED-C09) Document 01/30/19 22:00 [id number] (Rec: 01/30/19 22:43 [id number] MED-C11) Document 01/31/19 06:00 [id number] (Rec: 01/31/19 06:38 [id number] MED-C05) Document 01/31/19 13:54 [id number] (Rec: 01/31/19 13:54 [id number] MED-C04) Document 02/01/19 06:00 [id number] (Rec: 02/01/19 06:18 [id number] MED-C05) - Physical Exam General Physical Exam Comment: Right periorbital hematoma and right facial bruising extending to her right neck. General: No Cyanosis, No Anemia, No Jaundice, No Clubbing Lungs and Chest: Yes: Chest Expansion Full, Chest Expansion Symetrica, Percussion Note Resonant, Vessicular Breath Sounds. No: Crackles, Wheezes Heart Rate and Rhythm: Regular Additional Cardiovascular: Yes: Normal Heart Sounds. No: Heart Murmur, Pedal Edema Abdominal Exam: Yes: Soft, Abdominal Tenderness - mild generalized tenderness, Bowel Sounds Present. No: Distention, Guarding, Rebound Tenderness - Extremities Cranial Nerves II-XII Intact: Yes Limbs: Normal Power, Normal Tone - Neuro Orientation: A/O x3 Psychiatric: Normal Speech: Normal Results - Results Lab Results: Laboratory Results - last 24 hr 01/31/19 01/31/19 01/31/19 06:01 11:30 16:45 POC Glucose (mg/dL) 170 H 179 H Hemoglobin A1c 9.4 H 01/31/19 02/01/19 19:30 08:08 POC Glucose (mg/dL) 232 H 151 H Hemoglobin A1c Radiology Results: Patient Name: KEILA BROWN Medical Record#: [id number] Ordering Physician: Carlos Akins MD Acct.#: [id number] : 1950 Age: 68 Sex: F Location: EMERGENCY DEPARTMENT Exam Date: 01/29/19 012 ADM Status: REG ER Order Information: CT MAXILLOFACIAL W/O Accession Number: [id number] CPT: 17561 PROCEDURE INFORMATION: Exam: CT Maxillofacial Without Contrast Exam date and time: 01/29/2019 2:10 AM Age: 68 years old Clinical history: Injury or trauma; Fall; Initial encounter; Abrasion; Cheek bone; Right; Additional info: Fall, injury TECHNIQUE: Imaging protocol: Computed tomography images of the face without contrast. Radiation optimization: All CT scans at this facility use at least one of these dose optimization techniques: automated exposure control; mA and/or kV adjustment per patient size (includes targeted exams where dose is matched to clinical indication); or iterative reconstruction. COMPARISON: No relevant prior studies available. FINDINGS: Orbits: There have been bilateral lens replacements. The globes, extraocular muscles, and optic nerves are symmetric and normal. Sinuses: Paranasal sinuses and mastoid air cells are clear. The ostiomeatal units and sphenoid recesses are patent. No nasal septal deviation. Bones/joints: No facial bone fractures. Mild multilevel cervical spondylopathy. Soft tissues: Mild right periorbital subcutaneous stranding which extends inferiorly along the presiding pneumatic and pre-maxillary soft tissues. Associated lobulated hematoma overlying the right zygomatic bone measuring 2.7 cm (series 10, image 39). Remaining soft tissues are normal. IMPRESSION: Right periorbital and facial traumatic contusion with associated small pre-zygomatic subcutaneous hematoma. No facial bone fractures. To contact [facility] with a general question: [facility] - [phone] For direct physician to physician contact: Physician Hotline - [phone] [facility] ([facility] Facility ID #[id number]) <Electronically signed by Radha Lee MD in [place]> 01/29/19257 Dictated By: Radha Lee MD Dictated Date/Time: 01/29/19209 Transcribed Date/Time: 01/29/19209 Copy to: Patient Name: KEILA BROWN Medical Record#: [id number] Ordering Physician: Halie Cary MD Acct.#: [id number] : 1950 Age: 68 Sex: F Location: EMERGENCY DEPARTMENT Exam Date: 01/29/19606 ADM Status: REG ER Order Information: ABDOMEN/KUB 1 VW Accession Number: [id number] CPT: 29436 HISTORY: vomiting COMPARISONS: CT dated December 10, 2018 VIEWS: Frontal views of the abdomen. FINDINGS: BOWEL: There is a nonspecific bowel gas pattern, with nondilated small bowel gas noted. There is a large amount of stool within the colon. CALCULI: There are no abnormal calculi. BONES AND SOFT TISSUES: There is diffuse osteopenia. Degenerative changes are noted. OTHER FINDINGS: The lung bases are clear. There is no subphrenic gas. IMPRESSION: NONSPECIFIC BOWEL GAS PATTERN. LARGE AMOUNT OF STOOL THROUGHOUT THE COLON. R1NF Preliminary Imaging Read R1NF <Electronically signed by Ilan Villegas MD in [place]> 01/29/19737 Dictated By: Ilan Villegas MD Dictated Date/Time: 01/29/19736 Transcribed Date/Time: 01/29/19736 Copy to: Assessment - Problem List Assessment: Patient Problems Personality disorder (Chronic) Nausea (Acute) Facial contusion (Acute) Periorbital hematoma (Acute) Fall (Acute) DVT prophylaxis (Chronic) Full code status (Chronic) Hypertension (Chronic) Constipation (Acute) Migraine (Chronic) Autoimmune disease (Chronic) Opioid dependence (Acute) Diverticulosis (Chronic) Fibromyalgia (Chronic) GERD (gastroesophageal reflux disease) (Chronic) Polypharmacy (Chronic) Psychosocial impairment (Chronic) Arthritis (Chronic) Diabetes mellitus (Chronic) Plan: Acute medical problems: Fall (Acute) Facial contusion (Acute) Periorbital hematoma (Acute) This is visible. The cause of her fall is not clear. She relates it to her nausea and constipation. She likely had some hypovolemia and fainted. Constipation (Acute) Nausea (Acute) Dr. Vallecillo has seen her in consultation. I spoke with him. She has had multiple evaluations previously with GI. Nothing pathological has been found. He thinks this is functional as she complains of nausea and vomiting and is then seen eating by the nursing staff a hearty meal. Autoimmune disease (Chronic)Fibromyalgia (Chronic) She attributes her pain to an undiagnosed autoimmune disease. There is no hard evidence for this. I think she is dependent on opioids and that this is causing her problems. Polypharmacy (Chronic) Opioid dependence (Acute) I suspect that her constipation and nausea is due to her high dose opioids and her fall may have been contributed to by her worrying polypharmacy. I have reviewed the list of outpatient medications from the chart*. I think many could be safely stopped. This is up to Dr. Anila Saul. A drug holiday would be a reasonable idea. Comorbidities: Diabetes mellitus (Chronic) Her A1c is 9.4% - very poor control. In the hospital her control is on target. This suggests that compliance is an issue. Personality disorder (Chronic) In my clinical opinion (though I admit I am not a psychiatrist), she has a dependent personality disorder with borderline tendencies. She has real chronic comorbidities, but elaborates on these and this causes her polypharmacy, opioid dependence and hence constipation, nausea and dehydration. Dr. Vallecillo doubts a primary GI pathology Secondary diagnoses: DVT prophylaxis (Chronic) Full code status (Chronic) Hypertension (Chronic) Migraine (Chronic) Diverticulosis (Chronic) GERD (gastroesophageal reflux disease) (Chronic) Psychosocial impairment (Chronic) Arthritis (Chronic) I explained my thoughts to Keila Brown. I think that she needs to simplify her pharmacology, but I believe she is very invested psychologically in their use. Interestingly, the ones she needs, she actually likely is not compliant with (insulin for her diabetes). I note her glycemic control is good in the hospital - this may be diet related. I discussed with her the use of medical marijuana to help her come off opioids - I would work with her on this conditionally on her stopping the opioids. I would only give her short prescriptions of the medical marijuana as the risk is that she would become dependent on both the medical marijuana and the opioids. *Review of home medications: Medication Instructions Recorded Confirmed Type metFORMIN* [Glucophage 1000 MG TAB 1,000 mg PO BID 03/31/13 01/29/19 History I recommend stopping - can cause GI upset *] Dexlansoprazole (NF) [Dexilant 60 mg PO DAILY 07/29/14 01/29/19 History Nothing has been proven on prior endoscopies - I am not sure this is needed. (NF)] Linaclotide (NF) [Linzess (NF)] 290 mcg PO QAM 07/29/14 01/29/19 History Her constipation is likely opioid induced - this is not needed and it is not working Ondansetron TAB* [Zofran 4 MG Tab*] 4 mg SL QID PRN 07/29/14 01/29/19 History This likely is treating opioid induced nausea LevoCETirizine TAB (NF) [Xyzal TAB 5 mg PO DAILY 01/27/15 01/29/19 History This doesn't need to be daily (NF)] Azelastine0.15% NASAL(NF) 2 spray BOTH NARES BID 03/02/15 01/29/19 History There is little evidence-based evidence for this drug's efficacy [Astepro 0.15% NASAL (NF)] Folic Acid TAB* [Folvite TAB*] 1 mg PO DAILY 10/06/16 01/29/19 History An improved diet would make this unnecessary Ipratropium Br (Nf)0.03% Nasal 1 spray BOTH NARES QID PRN 01/17/17 History I am not sure of the evidence-base for this prescription [Ipratropium [place]] Mabank-3 Fatty Acids (Nf) [Fish Oil 1,000 mg PO BID 01/17/17 01/29/19 History This likely does no harm, not sure if it does much good (NF)] Alpha Lipoic Acid 600 mg PO DAILY 05/21/17 01/29/19 History Marginal evidence base for this drugs use SUMAtriptan TAB* [Imitrex TAB*] 100 mg PO DAILY PRN 05/21/17 01/29/19 History This may be helpful for her migraines Ascorbic Acid TAB* [Vitamin C 100 mg PO DAILY 05/31/17 01/29/19 History No medical indication for this TAB*] Atorvastatin* [Lipitor 10 MG*] 5 mg PO BEDTIME 08/10/17 01/29/19 History Indicated Baclofen TAB* [Lioresal TAB*] 20 mg PO QID PRN 08/10/17 01/29/19 History I am not sure if this is effective - she is on a huge dose Clobetasol 0.05% OINT* 1 applic TOPICAL BID PRN 08/10/17 01/29/19 History Clotrimazole/Betamethasone* 1 applic TOPICAL BID MDD 2 weeks 08/10/1701/07 History No problem prn for yeast infections [Lotrisone Cream*] Metronidazole (TOPICAL)(NF) 1 applic TOPICAL BID PRN 08/10/17 01/29/19 History She uses this for rosacea - not harmful but is it helpful? [Metrocream (NF)] Milk Thistle 1,000 mg PO DAILY 08/10/17 01/29/19 History SUMAtriptan SQ* [Imitrex SQ*] 0.5 ml SUBCUT DAILY PRN 08/10/17 01/29/19 History duplicate Atenolol TAB* [Tenormin TAB* 25 MG] 25 mg PO DAILY #30 tab 10/30/18 Rx This maybe for migraine prophylaxis. Brimonidine Tartrate [Mirvaso] 1 applic TOPICAL DAILY 12/10/18 01/29/19 History Per ophthalmology Bumetanide TAB* [Bumex 2 MG TAB*] 2 mg PO BID 12/10/18 01/29/19 History Likely for edema - support hose may work as well Cyanocobalamin INJ * [Vitamin B12 1 ml IM MONTHLY 12/10/18 01/29/19 History This likely does no harm, she could take sublingual B12 INJ *] Dextran 70/Hypromellose Tears 1 drop BOTH EYES DAILY PRN 12/10/18 01/29/19 History Per ophthalmology [Natural Balance Tears Eye Drop] Insulin Degludec/Liraglutide 50 units SUBCUT DAILY 12/10/18 01/29/19 History The liraglutide may cause GI adverse effects [Xultophy 100 Unit-3.6MG/ml Pen] metHOTREXate sodium [Methotrexate] 50 mg INJ WEEKLY 12/10/18 01/29/19 History For the autoimmune disease - ? effective - what is the evidence basis for this? oxyCODONE SR TAB(*) [Oxycontin 10 10 mg PO Q12HR 12/10/18 01/29/19 History I think this is troublesome mg (*)] Potassium Chlor TAB* [Klor Con ER 10 meq PO BID tab.er 12/16/18 01/29/19 Rx She needs this if she takes the diuretic TAB 10 MEQ*] Estradiol (NF) 1 mg PO DAILY 01/29/19 01/29/19 History HYDROmorphone TAB* [Dilaudid Tab*] 8 mg PO Q4H PRN 01/29/19 01/29/19 History Likely cause of nausea Lisinopril TAB* [Prinivil TAB 10 10 mg PO DAILY 01/29/19 01/29/19 History Necessary MG*] Magnesium Hydroxide LIQ* [Milk of 30 ml PO TID PRN 01/29/19 01/29/19 History symptomatic for constipation induced by opioids Magnesia LIQ*] Neomycin/Bacitracin/Polymyxinb 1 applic TOPICAL DAILY 01/29/19 01/29/19 History PRN [Triple Antibiotic Ointment] Polyethylene Glycol 3350* 17 gm PO EVERY OTHER DAY 01/29/19 01/29/19 History Necessary for opiod induced constipation [Miralax*] Proctosol Hc 2.5 Topical Cream 1 applic TOPICAL BID 01/29/19 01/29/19 History prn Magnesium Hydroxide LIQ* [Milk of 30 ml PO Q6H PRN udc 01/31/19 Rx Likely needed for opioid induced constipation Magnesia LIQ*]
[2019-02-01] MEDS: Ondansetron INJ* 2 MG/ML VIAL IV PRN ×2 (12:12→23:20)
[2019-02-01] MEDS: Dextran 70/Hypromellose Tears Eye Drops 15 ml BTL (for Artificials Tears) BOTH EYES PRN (14:49)
[2019-02-01] MEDS: Baclofen TAB* 20 MG PO SCH ×2 (14:49→21:31)
[2019-02-01] MEDS: Atorvastatin* 10 MG TAB PO SCH (20:59)
[2019-02-01] MEDS: Magnesium Hydroxide LIQ* 30 ML UDC PO PRN (21:15)
[2019-02-02] MEDS: diPHENhydraMINE PO* 25 MG PO PRN (00:53)
[2019-02-02] MEDS: Heparin VIAL(*) 5000 UNITS/ML VIAL (FIVE THOUSAND) SUBCUT SCH ×3 (05:55→20:36)
[2019-02-02 06:52] LABS: ABS Eosinophils 0.4 10^3/ul (0-0.6); ABS Lymphocytes 4.4 10^3/ul (1.0-4.8); ABS Monocytes 0.8 10^3/ul (0-0.8); ABS Neutrophils 2.2 10^3/ul (1.5-7.7); Eosinophil % 4.7 %; Hematocrit 39 % (35-47); Hemoglobin 13.4 g/dL (12.0-16.0); Lymphocyte % 56.2 %; Mean Corpuscular HGB Conc 34 g/dL (31-36); Mean Corpuscular Hemoglobin 32 pg (27-31); Mean Corpuscular Volume 93 fL (80-97); Mean Platelet Volume 7.5 fL (7.4-10.4); Nucleated Red Blood Cells % 0.1; Platelet Count 205 10^3/uL (150-450); Red Cell Distribution Width 13 % (10-15); White Blood Count 7.9 10^3/uL (3.5-10.8)
[2019-02-02 06:56] LABS: Anion Gap 6 mmol/L (2-11); BUN/Creatinine Ratio 9.6 (8-20); Blood Urea Nitrogen 10 mg/dL (6-24); C Reactive Protein < 1.00 mg/L (<8.01); CO2 Carbon Dioxide 33 mmol/L (22-32); Calcium 9.5 mg/dL (8.6-10.3); Chloride 100 mmol/L (101-111); EGFR African American 63.4 (>60); EGFR Non-African American 52.4 (>60); Glucose 148 mg/dL (70-100); Potassium 4.1 mmol/L (3.5-5.0); Sodium 139 mmol/L (135-145)
[2019-02-02 08:26] LABS: Erythrocyte Sed Rate 10 mm/Hr (0-29)
[2019-02-02] MEDS: HYDROMORPHONE 8 MG PO PRN ×4 (08:57→21:57)
[2019-02-02] MEDS: Potassium Chlor TAB* 20 MEQ TAB.ER PO SCH ×2 (08:58→20:28)
[2019-02-02] MEDS: Pantoprazole TAB * 40 MG TAB PO SCH (08:58)
[2019-02-02] MEDS: oxyCODONE SR TAB(*) 10 MG TAB.SR PO SCH ×2 (08:58→20:29)
[2019-02-02] MEDS: Bumetanide TAB* 2 MG PO SCH ×2 (08:58→17:54)
[2019-02-02] MEDS: Cetirizine* 10 MG TAB PO SCH (08:58)
[2019-02-02] MEDS: Lisinopril TAB* 10 MG PO SCH (08:58)
[2019-02-02] MEDS: Insulin LISPRO* 1 UNITS UNIT SUBCUT SCH ×4 (08:59→20:34)
[2019-02-02] MEDS: Atenolol TAB* 25 MG PO SCH (09:00)
[2019-02-02] MEDS: Polyethylene Glycol 3350* 17 GM PACKET PO SCH ×2 (09:02→20:27)
[2019-02-02] MEDS: Lidocaine Patch REMOVE* 1 NOTE MISC PATCH OFF SCH (09:05)
[2019-02-02] MEDS: Baclofen TAB* 20 MG PO SCH ×3 (09:30→20:28)
[2019-02-02] MEDS: LINACLOTIDE 290 MCG PO SCH (09:31)
[2019-02-02] MEDS: BRIMONIDINE TARTRATE TOPICAL SCH (09:31)
--- NOTE | 2019-02-02 11:18 | PN ---
Subjective - Subjective Reason for Note: Progress Note History: She has walked around the riddle twice yesterday and again today. She is feeling more steady and strong. She remains constipated. She is eating and drinking. Her glycemic control remains acceptable. Her pain is at baseline. She has no migraine. Active Problems: Active Problems Constipation (Acute) K59.00 -Acute on chronic leading to N/V -PRN Zofran, IVF total of 3L NS, now at 100cc /hr -Start Plyethlyne glycol, start dulcolax suppository, start linzess -Opiate induced, favor enema over oral given N/V if unable to have BM today Facial contusion (Acute) S00.83XA Fall (Acute) -Mechanical fall 2/2 to N/V and dehyrdation with orbital bruising, Maxillofacial CT without any fracture -Pt c/o shoulder and neck pain, if no improvement will order R shoulder radiograph, on exam limited active ROM, but FROM on passive. -PT/OT in place -Pain control with Lidocaine patch Nausea (Acute) R11.0 Opioid dependence (Acute) F11.20 -Consider tapering 10% Periorbital hematoma (Acute) H05.239 Arthritis (Chronic) M19.90 Autoimmune disease (Chronic) D89.89 -Holding home MTX DVT prophylaxis (Chronic) Z29.9 Diabetes mellitus (Chronic) E11.9 -IDDM, home regimen is 70/30 40 Q AM, 30 U QPM- hold for clear liquid diet only, lispro SSI, resume 70/30 as tolerating diet more -Holding home metformin in setting of SRINIVAS -Optimized on statin, not on JOSE JUAN Diverticulosis (Chronic) K57.90 Fibromyalgia (Chronic) M79.7 -On Dilaudid, Oxycodone (holding), Baclofen Full code status (Chronic) Z78.9 GERD (gastroesophageal reflux disease) (Chronic) K21.9 -Continue PPI Hypertension (Chronic) I10 -Holding Atenolol, Bumex Migraine (Chronic) G43.909 -No active issues, on Sumatriptan as outpt Personality disorder (Chronic) F60.9 Polypharmacy (Chronic) Z79.899 -Reports she has home health aide that helps with meds, suggest pharmacy do adequate med rec and consolidate classes where able. -Holding all supplements and vitamins -Holding Estradiol Psychosocial impairment (Chronic) Z65.9 Current Medications: Current Medications Artificial Tears (Natural Balance Tears Eye Drop) 1 drop BOTH EYES Q2H PRN PRN Reason: DRY EYE Last Admin: 02/01/19 14:49 Dose: 1 drop Atenolol (Tenormin Tab*) 25 mg PO DAILY REPLACED BY [facility] Last Admin: 02/02/19 09:00 Dose: Not Given Atorvastatin Calcium (Lipitor*) 5 mg PO BEDTIME REPLACED BY [facility] Last Admin: 02/01/19 20:59 Dose: 5 mg Baclofen (Lioresal Tab*) 20 mg PO TID REPLACED BY [facility] Last Admin: 02/02/19 09:30 Dose: 20 mg Bumetanide (Bumex Tab*) 2 mg PO BID REPLACED BY [facility] Last Admin: 02/02/19 08:58 Dose: 2 mg Cetirizine HCl (Zyrtec*) 10 mg PO DAILY REPLACED BY [facility] Last Admin: 02/02/19 08:58 Dose: 10 mg Dextrose (Dextrose 50% Vial 50 Ml*) 25 ml IV PUSH .FOR FS < 60 - SS PRN PRN Reason: FS < 60 Diphenhydramine HCl (Benadryl Po*) 25 mg PO BEDTIME PRN PRN Reason: SLEEP Last Admin: 02/02/19 00:53 Dose: 25 mg Heparin Sodium (Porcine) (Heparin Vial(*)) 5,000 units SUBCUT Q8HR REPLACED BY [facility] Last Admin: 02/02/19 05:55 Dose: 5,000 units Hydromorphone HCl (Dilaudid Tab(Nf)) 8 mg PO Q4HR PRN PRN Reason: PAIN - MODERATE Last Admin: 02/02/19 08:57 Dose: 8 mg Insulin Human Lispro (Humalog*) 0 units SUBCUT ACHS REPLACED BY [facility]; Protocol Last Admin: 02/02/19 08:59 Dose: 2 units Lidocaine (Lidoderm 5% Patch*) 1 patch TRANSDERM BEDTIME REPLACED BY [facility] Last Admin: 02/01/19 21:03 Dose: 1 patch Linaclotide (Linzess (Nf)) 290 mcg PO DAILY REPLACED BY [facility] Last Admin: 02/02/19 09:31 Dose: Not Given Lisinopril (Prinivil Tab*) 10 mg PO DAILY REPLACED BY [facility] Last Admin: 02/02/19 08:58 Dose: 10 mg Magnesium Hydroxide (Milk Of Magnesia Liq*) 30 ml PO Q6H PRN PRN Reason: CONSTIPATION Last Admin: 02/01/19 21:15 Dose: 30 ml Nft: Brimonidine Tartrate [Mirvaso] 1 Applic) 1 applic TOPICAL DAILY REPLACED BY [facility] Last Admin: 02/02/19 09:31 Dose: Not Given Ondansetron HCl (Zofran Inj*) 4 mg IV Q8H PRN PRN Reason: NAUSEA Last Admin: 02/01/19 23:20 Dose: 4 mg Oxycodone HCl (Oxycontin(*)) 10 mg PO Q12HR REPLACED BY [facility] Last Admin: 02/02/19 08:58 Dose: 10 mg Pantoprazole Sodium (Protonix Tab*) 40 mg PO DAILY REPLACED BY [facility] Last Admin: 02/02/19 08:58 Dose: 40 mg Pharmacy Profile Note (Lidocaine Patch Remove*) 1 note PATCH OFF 0900 REPLACED BY [facility] Last Admin: 02/02/19 09:05 Dose: 1 note Polyethylene Glycol/Electrolytes (Miralax*) 17 gm PO BID REPLACED BY [facility] Last Admin: 02/02/19 09:02 Dose: 17 gm Potassium Chloride (Klor Con Er Tab*) 20 meq PO BID REPLACED BY [facility] Last Admin: 02/02/19 08:58 Dose: 20 meq Sumatriptan Succinate (Imitrex Sq*) 6 mg SUBCUT DAILY PRN PRN Reason: MIGRAINE HEADACHE Last Admin: 02/01/19 12:12 Dose: 6 mg Home Medications: Home Medications Medication Instructions Recorded Confirmed Type metFORMIN* [Glucophage 1000 MG TAB 1,000 mg PO BID 03/31/13 01/29/19 History *] Dexlansoprazole (NF) [Dexilant 60 mg PO DAILY 07/29/14 01/29/19 History (NF)] Linaclotide (NF) [Linzess (NF)] 290 mcg PO QAM 07/29/14 01/29/19 History Ondansetron TAB* [Zofran 4 MG Tab*] 4 mg SL QID PRN 07/29/14 01/29/19 History LevoCETirizine TAB (NF) [Xyzal TAB 5 mg PO DAILY 01/27/15 01/29/19 History (NF)] Azelastine 0.15% NASAL(NF) 2 spray BOTH NARES BID 03/02/15 01/29/19 History [Astepro 0.15% NASAL (NF)] Folic Acid TAB* [Folvite TAB*] 1 mg PO DAILY 10/06/16 01/29/19 History Ipratropium Br (Nf)0.03% Nasal 1 spray BOTH NARES QID PRN 01/17/17 01/29/19 History [Ipratropium [place]] [place]-3 Fatty Acids (Nf) [Fish Oil 1,000 mg PO BID 01/17/17 01/29/19 History (NF)] Alpha Lipoic Acid 600 mg PO DAILY 05/21/17 01/29/19 History SUMAtriptan TAB* [Imitrex TAB*] 100 mg PO DAILY PRN 05/21/17 01/29/19 History Ascorbic Acid TAB* [Vitamin C 100 mg PO DAILY 05/31/17 01/29/19 History TAB*] Atorvastatin* [Lipitor 10 MG*] 5 mg PO BEDTIME 08/10/17 01/29/19 History Baclofen TAB* [Lioresal TAB*] 20 mg PO QID PRN 08/10/17 01/29/19 History Clobetasol 0.05% OINT* 1 applic TOPICAL BID PRN 08/10/17 01/29/19 History Clotrimazole/Betamethasone* 1 applic TOPICAL BID MDD 2 weeks 08/10/17 01/29/19 History [Lotrisone Cream*] Metronidazole (TOPICAL)(NF) 1 applic TOPICAL BID PRN 08/10/17 01/29/19 History [Metrocream (NF)] Milk Thistle 1,000 mg PO DAILY 08/10/17 01/29/19 History SUMAtriptan SQ* [Imitrex SQ*] 0.5 ml SUBCUT DAILY PRN 08/10/17 01/29/19 History Atenolol TAB* [Tenormin TAB* 25 MG] 25 mg PO DAILY #30 tab 10/30/18 01/29/19 Rx Brimonidine Tartrate [Mirvaso] 1 applic TOPICAL DAILY 12/10/18 01/29/19 History Bumetanide TAB* [Bumex 2 MG TAB*] 2 mg PO BID 12/10/18 01/29/19 History Cyanocobalamin INJ * [Vitamin B12 1 ml IM MONTHLY 12/10/18 01/29/19 History INJ *] Dextran 70/Hypromellose Tears 1 drop BOTH EYES DAILY PRN 12/10/18 01/29/19 History [Natural Balance Tears Eye Drop] Insulin Degludec/Liraglutide 50 units SUBCUT DAILY 12/10/18 01/29/19 History [Xultophy 100 Unit-3.6MG/ml Pen] metHOTREXate sodium [Methotrexate] 50 mg INJ WEEKLY 12/10/18 01/29/19 History oxyCODONE SR TAB(*) [Oxycontin 10 10 mg PO Q12HR 12/10/18 01/29/19 History mg (*)] Potassium Chlor TAB* [Klor Con ER 10 meq PO BID tab.er 12/16/18 01/29/19 Rx TAB 10 MEQ*] Estradiol (NF) 1 mg PO DAILY 01/29/19 01/29/19 History HYDROmorphone TAB* [Dilaudid Tab*] 8 mg PO Q4H PRN 01/29/19 01/29/19 History Lisinopril TAB* [Prinivil TAB 10 10 mg PO DAILY 01/29/19 01/29/19 History MG*] Magnesium Hydroxide LIQ* [Milk of 30 ml PO TID PRN 01/29/19 01/29/19 History Magnesia LIQ*] Neomycin/Bacitracin/Polymyxinb 1 applic TOPICAL DAILY 01/29/19 01/29/19 History [Triple Antibiotic Ointment] Polyethylene Glycol 3350* 17 gm PO EVERY OTHER DAY 01/29/19 01/29/19 History [Miralax*] Proctosol Hc 2.5 Topical Cream 1 applic TOPICAL BID 01/29/19 01/29/19 History Magnesium Hydroxide LIQ* [Milk of 30 ml PO Q6H PRN udc 01/31/19 Rx Magnesia LIQ*] Allergies: Allergies Allergy/AdvReac Type Severity Reaction Status Date / Time methylparaben Allergy Intermediate Pain Verified 12/10/18 02:18 morphine Allergy Intermediate Hallucinati Verified 12/10/18 02:18 ons tizanidine Allergy Intermediate Swelling Verified 12/10/18 02:18 Of Face,Lips,& Throat Tricyclic Compounds Allergy Intermediate Altered Verified 12/10/18 02:18 Mental Status diphenhydramine Allergy Mild See Comment Verified 12/12/18 22:03 hydromorphone Allergy Mild See Comment Verified 12/10/18 02:18 itraconazole Allergy Mild Rash Verified 12/10/18 02:18 lanolin Allergy Mild Rash Verified 12/10/18 02:18 milnacipran Allergy Mild Rash And Verified 12/10/18 02:18 Itching mometasone furoate Allergy Mild Headache Verified 12/10/18 02:18 naloxone Allergy Mild Headache Verified 12/10/18 02:18 ondansetron Allergy Mild Headache Verified 12/10/18 02:18 oxycodone Allergy Mild Palpitation Verified 12/10/18 02:18 s oxymorphone Allergy Mild Palpitation Verified 12/10/18 02:18 s Penicillins Allergy Mild Rash Verified 12/10/18 02:18 pentazocine Allergy Mild Palpitation Verified 12/10/18 02:18 s propoxyphene Allergy Mild Rash Verified 12/10/18 02:18 sulfasalazine Allergy Mild Rash Verified 12/10/18 02:18 talc Allergy Mild Rash Verified 12/10/18 02:18 tramadol Allergy Mild Muscle Ache Verified 12/10/18 02:18 trazodone Allergy Mild Insomnia Verified 12/10/18 02:18 Adhesive Tape Allergy Unknown Unknown Verified 12/10/18 02:18 Reaction Details alprazolam Allergy Unknown Unknown Verified 12/10/18 02:18 Reaction Details aspirin Allergy Unknown Unknown Verified 12/10/18 02:18 Reaction Details cefaclor Allergy Unknown Unknown Verified 12/10/18 02:18 Reaction Details clarithromycin Allergy Unknown Unknown Verified 12/10/18 02:18 Reaction Details codeine Allergy Unknown Unknown Verified 12/10/18 02:18 Reaction Details diazepam Allergy Unknown Unknown Verified 12/10/18 02:18 Reaction Details doxycycline Allergy Unknown Unknown Verified 12/10/18 02:18 Reaction Details duloxetine Allergy Unknown Unknown Verified 12/10/18 02:18 Reaction Details fentanyl Allergy Unknown See Comment Verified 12/10/18 02:18 fluoxetine Allergy Unknown Unknown Verified 12/10/18 02:18 Reaction Details gabapentin Allergy Unknown See Comment Verified 12/10/18 02:18 hydroxychloroquine Allergy Unknown Unknown Verified 12/10/18 02:18 Reaction Details paroxetine Allergy Unknown Unknown Verified 12/10/18 02:18 Reaction Details adhesive Allergy Blisters Verified 12/10/18 02:18 apple Allergy Anaphylatic Verified 12/10/18 02:18 Shock black pepper Allergy Hives/Diff. Verified 12/10/18 02:18 Breathing/I tching Bleach (Sodium Hypochlorite) Allergy Unknown Verified 12/10/18 02:18 Reaction Details capsaicin Allergy Unknown Verified 12/10/18 02:18 Reaction Details cigarette smoke Allergy Difficulty Verified 12/10/18 02:18 Breathing Corticosteroids Allergy Unknown Verified 12/10/18 02:18 (Glucocorticoids) Reaction Details melon Allergy Anaphylatic Verified 12/10/18 02:18 Shock mupirocin Allergy Unknown Verified 12/10/18 02:18 Reaction Details NSAIDS (Non-Steroidal Allergy Unknown Verified 12/10/18 02:18 Anti-Inflamma Reaction Details onion Allergy Hives/Diff. Verified 12/10/18 02:18 Breathing/I tching pepper (genus Capsicum) Allergy Unknown Verified 12/10/18 02:18 Reaction Details tapentadol [From Nucynta] Allergy Unknown Verified 12/10/18 02:18 Reaction Details lettuce AdvReac Stomach Verified 12/10/18 02:18 Cramps VINEGAR Allergy Intermediate TROUBLE Uncoded 12/10/18 02:18 BREATHING ENVRIONMENTAL Allergy Mild Sneezing Uncoded 12/10/18 02:18 BANDAIDS AdvReac Mild Blisters Uncoded 12/10/18 02:18 Objective - Vital Signs Vital Signs: Vital Signs 02/01/19 02/01/19 02/01/19 11:40 15:15 19:45 Temperature 97.7 F 97.9 F 97.4 F Pulse Rate 55 54 65 Respiratory 12 13 19 Rate Blood Pressure 140/65 150/62 110/48 (mmHg) O2 Sat by Pulse 95 97 94 Oximetry 02/01/19 02/01/19 02/01/19 20:00 21:01 23:01 Temperature Pulse Rate Respiratory 19 19 16 Rate Blood Pressure (mmHg) O2 Sat by Pulse Oximetry 02/01/19 02/02/19 02/02/19 23:31 00:53 02:53 Temperature 97.6 F Pulse Rate 63 Respiratory 19 16 19 Rate Blood Pressure 105/57 (mmHg) O2 Sat by Pulse 95 Oximetry 02/02/19 02/02/19 02/02/19 04:44 07:40 08:42 Temperature 97.6 F 97.3 F Pulse Rate 55 54 60 Respiratory 19 16 Rate Blood Pressure 112/56 109/46 (mmHg) O2 Sat by Pulse 94 94 Oximetry 02/02/19 02/02/19 08:58 09:00 Temperature Pulse Rate Respiratory 16 16 Rate Blood Pressure (mmHg) O2 Sat by Pulse Oximetry - Intake and Output Intake and Output: Intake & Output 01/30/19 01/31/19 02/01/19 02/02/19 11:59 11:59 11:59 11:59 Intake Total 1609 3720 1040 1300 Balance 1609 3720 1040 1300 Weight 156 lb 4.8 oz Intake: IV Fluids 369 3240 NS (0.9%) 369 3240 Oral 1527 507 8990 1300 Other: Estimated Void Large Medium Medium Medium # Bowel Movements 0 1 1 1 Estimated Stool Amount Medium Medium Small # Voids 1 1 3 2 ADLs: Meal Record Start: 01/29/19 12: 11 Freq: DAILY@0900,1400,1800 Status: Active Protocol: Created 01/29/19 12:11 System (Rec: 01/29/19 12:11 System [facility]-9) Document 01/29/19 14:00 [id number] (Rec: 01/29/19 14:34 [id number] MED-C11) Document 01/29/19 18:00 [id number] (Rec: 01/29/19 18:40 [id number] MED-C05) Document 01/30/19 09:00 [id number] (Rec: 01/30/19 18:51 [id number] MED-C09) Document 01/30/19 14:00 [id number] (Rec: 01/30/19 18:53 [id number] MED-C09) Document 01/31/19 09:00 [id number] (Rec: 01/31/19 09:31 [id number] MED-C04) Document 01/31/19 13:54 [id number] (Rec: 01/31/19 13:54 [id number] MED-C04) Document 01/31/19 18:00 [id number] (Rec: 01/31/19 18:01 [id number] MED-C14) Document 02/01/19 09:00 [id number] (Rec: 02/01/19 15:18 [id number] MED-C11) Document 02/01/19 14:00 [id number] (Rec: 02/01/19 15:18 [id number] MED-C11) Document 02/01/19 18:00 [id number] (Rec: 02/01/19 19:14 [id number] MED-C09) Intake and Output Start: 01/29/19 01: 24 Freq: Status: Active Protocol: Created 01/29/19 01:24 System (Rec: 01/29/19 01:24 System ED-C05) Intake and Output Start: 01/29/19 12: 11 Freq: DAILY@0600,1400,2200 Status: Active Protocol: Created 01/29/19 12:11 System (Rec: 01/29/19 12:11 System [id number]) Document 01/29/19 14:00 [id number] (Rec: 01/29/19 14:34 [id number] MED-C11) Document 01/29/19 15:58 [id number] (Rec: 01/29/19 15:58 [id number] MED-C05) Document 01/29/19 22:00 [id number] (Rec: 01/30/19 00:31 [id number] MED-C13) Document 01/30/19 05:06 [id number] (Rec: 01/30/19 05:38 [id number] MED-C13) Document 01/30/19 14:00 [id number] (Rec: 01/30/19 18:53 [id number] MED-C09) Document 01/30/19 22:00 [id number] (Rec: 01/30/19 22:43 [id number] MED-C11) Document 01/31/19 06:00 [id number] (Rec: 01/31/19 06:38 [id number] MED-C05) Document 01/31/19 13:54 [id number] (Rec: 01/31/19 13:54 [id number] MED-C04) Document 02/01/19 06:00 [id number] (Rec: 02/01/19 06:18 [id number] MED-C05) Document 02/01/19 14:00 [id number] (Rec: 02/01/19 15:19 [id number] MED-C11) Document 02/01/19 18:00 [id number] (Rec: 02/01/19 20:09 [id number] MED-C04) Document 02/01/19 21:53 [id number] (Rec: 02/01/19 21:54 [id number] MED-C09) Document 02/02/19 04:09 [id number] (Rec: 02/02/19 04:11 [id number] MED-C15) - Physical Exam General Physical Exam Comment: Ongoing hematoma right orbit and face. General: No Cyanosis, No Anemia, No Jaundice, No Clubbing Lungs and Chest: Yes: Chest Expansion Full, Chest Expansion Symetrica, Percussion Note Resonant, Vessicular Breath Sounds. No: Crackles, Wheezes Heart Rate and Rhythm: Regular Additional Cardiovascular: Yes: Normal Heart Sounds. No: Heart Murmur, Pedal Edema Abdominal Exam: Yes: Soft, Abdominal Tenderness, Bowel Sounds Present. No: Distention, Guarding, Rebound Tenderness - Extremities Cranial Nerves II-XII Intact: Yes Limbs: Normal Power - Neuro Orientation: A/O x3 Psychiatric: Normal Speech: Normal Results - Results Lab Results: Laboratory Results - last 24 hr 02/01/19 02/01/19 02/01/19 11:22 16:46 20:41 WBC RBC Hgb Hct MCV MCH MCHC RDW Plt Count MPV Neut % (Auto) Lymph % (Auto) [place]ison % (Auto) Eos % (Auto) Baso % (Auto) Absolute Neuts (auto) Absolute Lymphs (auto) Absolute Monos (auto) Absolute Eos (auto) Absolute Basos (auto) Absolute Nucleated RBC Nucleated RBC % ESR Sodium Potassium Chloride Carbon Dioxide Anion Gap BUN Creatinine Est GFR ( Amer) Est GFR (Non-Af Amer) BUN/Creatinine Ratio Glucose POC Glucose (mg/dL) 137 H 320 H 151 H Calcium C-Reactive Protein 02/02/19 02/02/19 02/02/19 06:22 06:22 08:32 WBC 7.9 RBC 4.20 Hgb 13.4 Hct 39 MCV 93 MCH 32 H MCHC 34 RDW 13 Plt Count 205 MPV 7.5 Neut % (Auto) 28.2 Lymph % (Auto) 56.2 [place]ison % (Auto) 10.5 Eos % (Auto) 4.7 Baso % (Auto) 0.4 Absolute Neuts (auto) 2.2 Absolute Lymphs (auto) 4.4 Absolute Monos (auto) 0.8 Absolute Eos (auto) 0.4 Absolute Basos (auto) 0.0 Absolute Nucleated RBC 0.0 Nucleated RBC % 0.1 ESR 10 Sodium 139 Potassium 4.1 Chloride 100 L Carbon Dioxide 33 H Anion Gap 6 BUN 10 Creatinine 1.04 H Est GFR ( Amer) 63.4 Est GFR (Non-Af Amer) 52.4 BUN/Creatinine Ratio 9.6 Glucose 148 H POC Glucose (mg/dL) 149 H Calcium 9.5 C-Reactive Protein < 1.00 Assessment - Problem List Assessment: Patient Problems Constipation (Acute) Facial contusion (Acute) Fall (Acute) Nausea (Acute) Opioid dependence (Acute) Periorbital hematoma (Acute) Arthritis (Chronic) Autoimmune disease (Chronic) DVT prophylaxis (Chronic) Diabetes mellitus (Chronic) Diverticulosis (Chronic) Fibromyalgia (Chronic) Full code status (Chronic) GERD (gastroesophageal reflux disease) (Chronic) Hypertension (Chronic) Migraine (Chronic) Personality disorder (Chronic) Polypharmacy (Chronic) Psychosocial impairment (Chronic) Plan: Acute medical problems: Facial contusion (Acute) Fall (Acute) Periorbital hematoma (Acute)She is more mobile and thinks she will be able to cope at home tomorrow. Constipation (Acute) Nausea (Acute) She is eating and drinking Opioid dependence (Acute) This (and her polypharmacology) are the likely cause of her constipation and nausea. comorbidities: Arthritis (Chronic) Autoimmune disease (Chronic) her CRP and Sed rate show NO inflammation. I am skeptical about this diagnosis - though this may be well treated with methotrexate. All the records of her serology and immunology back to 2010 are negative. Diabetes mellitus (Chronic) Well controlled on insulin alone secondary diagnoses: DVT prophylaxis (Chronic) Diverticulosis (Chronic) Fibromyalgia (Chronic) Full code status (Chronic) GERD (gastroesophageal reflux disease) (Chronic) Hypertension (Chronic) Migraine (Chronic) Personality disorder (Chronic) Polypharmacy (Chronic) Psychosocial impairment (Chronic) I discussed the above with Keila Brown. She wants to go home tomorrow. I told her she would benefit from a drug holiday - cut back to the minimum number of necessary medications. I am prepared to work with Dr. Anila Saul by prescribing medical marijuana - but it would have to be contingent on coming off opioids completely - I would only give her one month at a time to make this verifiable. The opioid withdrawal would need to be tapered slowly (unless she prefers to detox - I don't think she would allow this). I explained to her that she is clearly dependent - that her pain is always going to be present, but there are alternative ways to deal with this. However, she may not have the will to go through with this. If not, I suspect she will remain constipated , nauseated and weak and this has a poor prognosis.
[2019-02-02] MEDS: Atorvastatin* 10 MG TAB PO SCH (20:28)
[2019-02-02] MEDS: Lidocaine PATCH 5%* 1 PATCH TRANSDERM SCH (20:31)
[2019-02-02] MEDS: Magnesium Hydroxide LIQ* 30 ML UDC PO PRN (21:57)
[2019-02-03] MEDS: diPHENhydraMINE PO* 25 MG PO PRN (00:39)
[2019-02-03] MEDS: HYDROMORPHONE 8 MG PO PRN ×2 (02:19→09:18)
[2019-02-03] MEDS: Heparin VIAL(*) 5000 UNITS/ML VIAL (FIVE THOUSAND) SUBCUT SCH (05:46)
[2019-02-03] MEDS: Insulin LISPRO* 1 UNITS UNIT SUBCUT SCH ×2 (08:16→12:51)
[2019-02-03] MEDS: Atenolol TAB* 25 MG PO SCH (09:17)
[2019-02-03] MEDS: Lisinopril TAB* 10 MG PO SCH (09:18)
[2019-02-03] MEDS: Cetirizine* 10 MG TAB PO SCH (09:18)
[2019-02-03] MEDS: oxyCODONE SR TAB(*) 10 MG TAB.SR PO SCH (09:19)
[2019-02-03] MEDS: LINACLOTIDE 290 MCG PO SCH (09:20)
[2019-02-03] MEDS: Bumetanide TAB* 2 MG PO SCH (09:20)
[2019-02-03] MEDS: Pantoprazole TAB * 40 MG TAB PO SCH (09:20)
[2019-02-03] MEDS: Potassium Chlor TAB* 20 MEQ TAB.ER PO SCH (09:20)
[2019-02-03] MEDS: BRIMONIDINE TARTRATE TOPICAL SCH (09:20)
[2019-02-03] MEDS: Baclofen TAB* 20 MG PO SCH (09:20)
[2019-02-03] MEDS: Polyethylene Glycol 3350* 17 GM PACKET PO SCH (09:22)
[2019-02-03] MEDS: Lidocaine Patch REMOVE* 1 NOTE MISC PATCH OFF SCH (09:32)
[2019-02-03] MEDS: SUMAtriptan SQ* 6 MG/0.5 ML VIAL SUBCUT PRN (10:45)
[2019-02-03] MEDS: Ondansetron INJ* 2 MG/ML VIAL IV PRN (10:45)
[2019-02-03 12:47] VITALS: BP 121/57
--- NOTE | 2019-02-06 14:17 | DS ---
DISCHARGE SUMMARY: DATE OF ADMISSION: 01/29/19 DATE OF DISCHARGE: 02/03/19 DISCHARGE DIAGNOSES: 1. Nausea and vomiting. 2. Acute kidney injury. 3. Status post fall. 4. Opioid-induced constipation. 5. Chronic pain, on opioids. 6. Type 2 diabetes mellitus, on insulin, poorly controlled. 7. Allergic conjunctivitis and rhinitis. 8. History of hypertension. 9. Hematomas, ecchymoses of the head and neck. 10. Diabetic neuropathy. 11. History of gastroesophageal reflux disease. 12. Undefined autoimmune disease. 13. History of migraine. 14. Superior vena cava syndrome. HISTORY OF PRESENT ILLNESS: Keila Brown is a 68-year-old woman admitted with nausea, vomiting after falling at home in the setting of opioid-induced constipation. Please see the dictated admission note and subsequent notes for details of the present illness, past medical history, family history, social and personal history, review of systems, and physical examination. LABORATORY DATA: CBC on admission: WBC 9.2, H and H 14.8/43, MCV 94, PLT 248, 000. CBC prior to discharge on 02/02/19: WBC 7.9, H and H 13.4/39, MCV 93, PLT 205,000, sed rate 10. Chemistries on admission: Sodium 132, potassium 4.3, chloride 96, CO2 of 29, BUN and creatinine 31/1.93, glucose 186, lactic acid 1.4. Rest of her comprehensive metabolic panel was within normal limits. Troponin was 0. CRP on 01/30/19 was 1.08, 01/31/19 less than 1, 02/02/19 less than 1. Phosphorus 3.1, magnesium 2.1. Blood sugars throughout the course of her hospitalization ranged from 91 to 320, mostly in the 100s. Urinalysis: Yellow, clear, specific gravity 1.009, pH 6, dipstick is negative except positive for ascorbic acid. IMAGING: Brain CT on 01/29/19: Right periorbital contusion and prezygomatic subcutaneous hematoma, stable left posterior fossa subarachnoid cyst, mild chronic small vessel ischemic disease. Maxillofacial CT on 01/29/19: Right periorbital and facial traumatic contusion with associated small prezygomatic subcutaneous hematoma and no facial bone fracture. Abdominal x-ray 01/29/19: No specific bowel gas pattern with large amount of stool throughout the colon. Chest x-ray 01/30/19: Elevated right hemidiaphragm, no pneumonia. EKG on 01/29/19: Sinus bradycardia, low voltage all extremity leads, otherwise normal and no significant change since previous EKG. CONSULTATION: GI, Dr. Vallecillo, 01/31/19. His feeling was that superior vena cava syndrome, loosely controlled diabetes makes it more difficult for her to keep her fluid and electrolyte status in equilibrium. He did not think she had a structural or motility disorder of the GI tract that would benefit from further workup. He thought that adverse GI effects of her many meds could complicate her stability. He felt that iron deficiency is most likely from chronic disease and chronic PPI therapy. He felt that polypharmacy is probably deeply rooted in her chronic disease processes, recommended simplifying that. He did not recommend gastric emptying study, previously ordered but canceled. HOSPITAL COURSE: The patient was initially admitted, felt to be weak and dehydrated from poor oral intake, nausea and vomiting, started fluid hydration, p.r.n. ondansetron. She was full code per her previous wishes. She was placed on DVT prophylaxis. Her usual narcotics were given. She was started on MiraLAX , Dulcolax suppository and Linzess were ordered. Her metformin was held because of acute kidney injury. Her labs improved. Her BUN and creatinine came down. She requested milk of magnesia for constipation, which was ordered. Her blood sugars were fairly well controlled. Medications were ordered for allergic conjunctivitis, rhinitis. As her blood pressure came up, her lisinopril and atenolol which were initially held were resumed. The patient admitted she had not been taking methotrexate recently for her connective tissue disease. By 02/03/19, she was felt to be improved. She was anxious to go home. The patient had been seen by Dr. Keith who had discussed possible tapering of opioids with her and she was amenable to that. He also discussed possible medical marijuana if she were able to come off the opioids. This will be discussed further with the patient, Dr. Keith, Dr. Duncan who prescribes her narcotics. At the time of discharge, vital signs were variable. Her blood pressure was somewhat low at times 87/60 and then repeated 121/57, respiratory rate 13, pulse 70, temp 98.3. She was felt to be in stable condition. She is being discharged to home. MEDICATIONS AT THE TIME OF DISCHARGE: 1. Metformin is being held. 2. Ondansetron 4 mg q.i.d. p.r.n. nausea and vomiting. 3. Dexilant 60 mg daily. 4. Linzess 290 mg daily. 5. Levocetirizine 5 mg daily. 6. Azelastine 2 sprays both nostrils twice a day. 7. Folic acid 1 mg daily. 8. Dixie-3 fatty acids 1000 mg daily. 9. Ipratropium nasal spray, both nares q.i.d. p.r.n. 10. Sumatriptan 100 mg daily as needed for migraine. 11. Alpha lipoic acid 600 mg daily. 12. Ascorbic acid 100 mg daily. 13. Baclofen 20 mg 4 times a day as needed. 14. Clobetasol ointment 0.05% topical b.i.d. p.r.n. 15. Metronidazole cream topical b.i.d. p.r.n. 16. Milk thistle capsule 1000 mg daily. 17. Sumatriptan 6 mg/0.5 mL vial subcutaneous daily p.r.n. 18. Lotrisone cream b.i.d. as needed for 2 weeks. 19. Atorvastatin 5 mg at h.s. 20. Atenolol 25 mg daily. 21. B12 injections 1000 mcg monthly. 22. OxyContin 10 mg twice a day. 23. Natural Balance Tears 1 drop daily as needed. 24. Methotrexate is being held, she is not taking this. 25. Brimonidine (Mirvaso) 30 g gel topical daily. 26. Xultophy 50 units daily. 27. Bumetanide 2 mg twice a day. 28. Potassium chloride 10 mEq twice a day. 29. Triple antibiotic ointment as needed. 30. Lisinopril 10 mg daily. 31. Proctosol-HC topical cream twice a day as needed. 32. MiraLAX 17 g every other day. 33. Hydromorphone 8 mg every 4 hours as needed. 34. Estradiol 0.5 mg daily. 35. Milk of magnesia 30 mL t.i.d. p.r.n. FOLLOWUP: She is to follow up with me in my office in 4 to 7 days. ACTIVITY: To walk with a walker. DIET: Consistent carbohydrate. CONDITION: Improved. [id number]/[facility] #: [id number] TIKI
== END 2019-02-03 13:00 | disposition home health service (06) | DRG 683 ==
LOC: ED 00:53 → MED 10:47
PROVIDERS: ADMIT Student in an Organized Health Care Education/Training Program; ATTEND Internal Medicine Geriatric Medicine
DX: N17.9 Acute kidney failure, unspecified (principal); E87.1 Hypo-osmolality and hyponatremia; F11.20 Opioid dependence, uncomplicated; D89.89 Other specified disorders involving the immune mechanism, not elsewhere classified; E11.65 Type 2 diabetes mellitus with hyperglycemia; K59.09 Other constipation; J45.909 Unspecified asthma, uncomplicated; E86.0 Dehydration; R07.9 Chest pain, unspecified; G89.29 Other chronic pain; K59.03 Drug induced constipation; T40.2X5A Adverse effect of other opioids, initial encounter; M79.7 Fibromyalgia; K21.9 Gastro-esophageal reflux disease without esophagitis; I10 Essential (primary) hypertension; G43.909 Migraine, unspecified, not intractable, without status migrainosus; S00.11XA Contusion of right eyelid and periocular area, initial encounter; E11.40 Type 2 diabetes mellitus with diabetic neuropathy, unspecified; W18.30XA Fall on same level, unspecified, initial encounter; S00.83XA Contusion of other part of head, initial encounter; W17.89XA Other fall from one level to another, initial encounter; K57.30 Diverticulosis of large intestine without perforation or abscess without bleeding; M19.90 Unspecified osteoarthritis, unspecified site; F60.9 Personality disorder, unspecified; E78.5 Hyperlipidemia, unspecified; Y92.009 Unspecified place in unspecified non-institutional (private) residence as the place of occurrence of the external cause; Z79.84 Long term (current) use of oral hypoglycemic drugs; Z79.899 Other long term (current) drug therapy; Z87.891 Personal history of nicotine dependence; Z80.3 Family history of malignant neoplasm of breast; Z88.6 Allergy status to analgesic agent; Z88.5 Allergy status to narcotic agent; Z88.0 Allergy status to penicillin; Z88.2 Allergy status to sulfonamides; Z91.048 Other nonmedicinal substance allergy status
CPT/HCPCS: 36415; 70450; 70486; 71046; 74018; 80048; 80053; 81003; 82947; 83036; 83605; 83735; 84100; 84484; 85025; 85027; 85652; 86140; 93005; 99284; A9270-GY; G8978-GP-CJ; G8979-GP-CJ; G8980-GP-CJ; J1170; J1644; J2405; J3030

== ENCOUNTER 2019-03-21 13:00 | Inpatient (IN) | payer MEDICARE, MEDICAID ==
--- NOTE | 2019-03-21 13:29 | ED ---
Back Pain - HPI Summary HPI Summary: Pt is a 68 y/o F presenting to the ED with a chief complaint of L-sided flank pain initially onset early in the morning of 03/21/2019. She states she was unable to sleep last night d/t the pain, and she has not been able to urinate for a long time, but has been drinking enough water. Denies abd pain. - History of Current Complaint Stated Complaint: PAIN & BURNING PER EMS Time Seen by Provider: 03/21/19 13:09 Hx Obtained From: Patient Onset/Duration: Sudden Onset, Lasting Hours, Still Present Onset/Duration: Started Hours Ago, Still Present Timing: Intermittent, Lasting Hours Back Pain Location: Is Discrete @ - L flank Severity Initially: Severe Severity Currently: Severe Aggravating Symptom(s): Movement Associated Signs And Symptoms: Positive: Flank Pain. Negative: Abdominal Pain - Allergies/Home Medications Allergies/Adverse Reactions: Allergies Allergy/AdvReac Type Severity Reaction Status Date / Time methylparaben Allergy Intermediate Pain Verified 12/10/18 02:18 morphine Allergy Intermediate Hallucinati Verified 12/10/18 02:18 ons tizanidine Allergy Intermediate Swelling Verified 12/10/18 02:18 Of Face,Lips,& Throat Tricyclic Compounds Allergy Intermediate Altered Verified 12/10/18 02:18 Mental Status diphenhydramine Allergy Mild See Comment Verified 12/12/18 22:03 hydromorphone Allergy Mild See Comment Verified 12/10/18 02:18 itraconazole Allergy Mild Rash Verified 12/10/18 02:18 lanolin Allergy Mild Rash Verified 12/10/18 02:18 milnacipran Allergy Mild Rash And Verified 12/10/18 02:18 Itching mometasone furoate Allergy Mild Headache Verified 12/10/18 02:18 naloxone Allergy Mild Headache Verified 12/10/18 02:18 ondansetron Allergy Mild Headache Verified 12/10/18 02:18 oxycodone Allergy Mild Palpitation Verified 12/10/18 02:18 s oxymorphone Allergy Mild Palpitation Verified 12/10/18 02:18 s Penicillins Allergy Mild Rash Verified 12/10/18 02:18 pentazocine Allergy Mild Palpitation Verified 12/10/18 02:18 s propoxyphene Allergy Mild Rash Verified 12/10/18 02:18 sulfasalazine Allergy Mild Rash Verified 12/10/18 02:18 talc Allergy Mild Rash Verified 12/10/18 02:18 tramadol Allergy Mild Muscle Ache Verified 12/10/18 02:18 trazodone Allergy Mild Insomnia Verified 12/10/18 02:18 Adhesive Tape Allergy Unknown Unknown Verified 12/10/18 02:18 Reaction Details alprazolam Allergy Unknown Unknown Verified 12/10/18 02:18 Reaction Details aspirin Allergy Unknown Unknown Verified 12/10/18 02:18 Reaction Details cefaclor Allergy Unknown Unknown Verified 12/10/18 02:18 Reaction Details clarithromycin Allergy Unknown Unknown Verified 12/10/18 02:18 Reaction Details codeine Allergy Unknown Unknown Verified 12/10/18 02:18 Reaction Details diazepam Allergy Unknown Unknown Verified 12/10/18 02:18 Reaction Details doxycycline Allergy Unknown Unknown Verified 12/10/18 02:18 Reaction Details duloxetine Allergy Unknown Unknown Verified 12/10/18 02:18 Reaction Details fentanyl Allergy Unknown See Comment Verified 12/10/18 02:18 fluoxetine Allergy Unknown Unknown Verified 12/10/18 02:18 Reaction Details gabapentin Allergy Unknown See Comment Verified 12/10/18 02:18 hydroxychloroquine Allergy Unknown Unknown Verified 12/10/18 02:18 Reaction Details paroxetine Allergy Unknown Unknown Verified 12/10/18 02:18 Reaction Details acetaminophen Allergy Unknown Verified 03/21/19 13:56 [From Darvocet-N] Reaction Details adhesive Allergy Blisters Verified 12/10/18 02:18 amitriptyline [From Elavil] Allergy Unknown Verified 03/21/19 13:56 Reaction Details apple Allergy Anaphylatic Verified 12/10/18 02:18 Shock black pepper Allergy Hives/Diff. Verified 12/10/18 02:18 Breathing/I tching Bleach (Sodium Hypochlorite) Allergy Unknown Verified 12/10/18 02:18 Reaction Details capsaicin Allergy Unknown Verified 12/10/18 02:18 Reaction Details cigarette smoke Allergy Difficulty Verified 12/10/18 02:18 Breathing Corticosteroids Allergy Unknown Verified 12/10/18 02:18 (Glucocorticoids) Reaction Details desipramine [From Norpramin] Allergy Unknown Verified 03/21/19 14:01 Reaction Details doxepin Allergy Unknown Verified 03/21/19 13:54 Reaction Details ibuprofen [From Motrin] Allergy Unknown Verified 03/21/19 13:56 Reaction Details melon Allergy Anaphylatic Verified 12/10/18 02:18 Shock methylprednisolone Allergy Unknown Verified 03/21/19 13:56 [From Medrol] Reaction Details mupirocin Allergy Unknown Verified 12/10/18 02:18 Reaction Details NSAIDS (Non-Steroidal Allergy Unknown Verified 12/10/18 02:18 Anti-Inflamma Reaction Details onion Allergy Hives/Diff. Verified 12/10/18 02:18 Breathing/I tching pepper (genus Capsicum) Allergy Unknown Verified 12/10/18 02:18 Reaction Details piroxicam [From Feldene] Allergy Unknown Verified 03/21/19 13:56 Reaction Details tapentadol [From Nucynta] Allergy Unknown Verified 12/10/18 02:18 Reaction Details lettuce AdvReac Stomach Verified 12/10/18 02:18 Cramps VINEGAR Allergy Intermediate TROUBLE Uncoded 12/10/18 02:18 BREATHING ENVRIONMENTAL Allergy Mild Sneezing Uncoded 12/10/18 02:18 BANDAIDS AdvReac Mild Blisters Uncoded 12/10/18 02:18 Home Medications: Home Medications Brimonidine Tartrate [Mirvaso] 1 applic TOPICAL ONCE PRN 03/21/19 [History Confirmed 03/21/19] Clotrimazole 1% CREAM* [Clotrimazole 1%*] 1 applic TOPICAL BID 03/21/19 [ History Confirmed 03/21/19] Empagliflozin [Jardiance] 10 mg PO DAILY 03/21/19 [History Confirmed 03/21/19] Insulin ASPART (NF) [Novolog 100 units/ml 10 ml VIAL (NF)] 20 units SUBCUT BID 03/21/19 [History Confirmed 03/21/19] metFORMIN* [Glucophage 500 MG TAB *] 1,000 mg PO BID 03/21/19 [History Confirmed 03/21/19] PMH/Surg Hx/FS Hx/Imm Hx Previously Healthy: Yes Endocrine/Hematology History: Denies: Hx Diabetes, Hx Systemic Lupus Erythematosus, Hx Thyroid Disease, Hx Anemia Cardiovascular History: Reports: Hx Angina, Hx Hypercholesterolemia, Hx Hypertension, Other Cardiovascular Problems/Disorders - SUPERIOR VENA CAVA [id number]. [facility] Denies: Hx Congestive Heart Failure - superior vena cava syndrome, Hx Coronary Artery Disease, Hx Pacemaker/ICD, Hx Peripheral Vascular Disease, Hx Valvular Heart Disease Respiratory History: Reports: Hx Asthma GI History: Reports: Hx Diverticulosis, Hx Gastroesophageal Reflux Disease, Hx Hiatal Hernia, Other GI Disorders - HX DIVERTICULOSIS Denies: Hx Jaundice History: Reports: Hx Acute Renal Failure Denies: Hx Chronic Renal Failure, Hx Dialysis, Hx Renal Disease Musculoskeletal History: Reports: Hx Back Problems - degenerative disc disease, Hx Tendonitis - WRISTS AND ELBOWS, Other Musculoskeletal History - DEGEN DISC DISEASE; chronic pain Denies: Hx Arthritis, Hx Rheumatoid Arthritis - myeloradicular neurapathy, Hx Osteoporosis Sensory History: Reports: Hx Cataracts - BILAT, Hx Contacts or Glasses Denies: Hx Legally Blind, Hx Deafness, Hx Hearing Aid Opthamlomology History: Reports: Hx Cataracts - BILAT, Hx Contacts or Glasses Denies: Hx Legally Blind Neurological History: Reports: Hx Migraine - 2-3 TIMES PER WEEK- TREATS WITH IMITREX, Other Neuro Impairments/Disorders - multiple sclerosis, FIBROMYALGIA, MYELORADICULAR NEUROPATHY Denies: Hx Headaches, Hx Seizures, Hx Transient Ischemic Attacks (TIA) Psychiatric History: Denies: Hx Anxiety, Hx Depression, Hx Panic Disorder - Cancer History Hx Chemotherapy: No Hx Radiation Therapy: No - Surgical History Surgery Procedure, Year, and Place: Hysterectomy 1999 [facility] [place]. D+C 1999 [facility] [place]. BOWEL RESECTION, COLOSTOMY 1993. COLOSTOMY WITH REVERSAL 1994 [facility] [place]. OVARIAN CYSTECTOMY 1996 [facility] [place]. LAP CRISTIAN WITH INFUSAPORT REMOVAL 2013 [facility] [place]. APPY REMOVAL OF RIGHT OVARIAN CYST AND RESECTION 1968. T&A. DEVIATED SEPTUM REPAIR. SINUS SURGERY 2005 [facility] [place]. INFUSAPORT 2004. 2015- LEFT EYE CATARACT REMOVED Hx Anesthesia Reactions: No - Immunization History Date of Influenza Vaccine: hsa not received Infectious Disease History: Reports: Hx Hepatitis - "medical"- only while taking a medication-states no longer takes, name unkn - Family History Known Family History: Positive: Other - Breast CA; anesthesia reaction Negative: Cardiac Disease - Social History Alcohol Use: None Hx Substance Use: No Substance Use Type: Reports: None Hx Tobacco Use: Yes Smoking Status (MU): Former Smoker Type: Cigarettes Amount Used/How Often: 4 PPD X 15 YEARS Length of Time of Smoking/Using Tobacco: 20 YRS Have You Smoked in the Last Year: No Review of Systems Negative: Abdominal Pain Positive: frequency - decreased, w/ increased water intake, flank pain All Other Systems Reviewed And Are Negative: Yes Physical Exam - Summary Physical Exam Summary: Appearance: The patient is well-nourished and agitated. Skin: The skin is warm and dry, and skin color reflects adequate perfusion. HEENT: The head is normocephalic and atraumatic. The pupils are equal and reactive. The conjunctivae are clear and without drainage. Nares are patent and without drainage. Mouth reveals moist mucous membranes, and the throat is without erythema and exudate. The external ears are intact. The ear canals are patent and without drainage. The tympanic membranes are intact. Neck: The neck is supple with full range of motion and non-tender. There are no carotid bruits. There is no neck vein distension. Respiratory: Chest is non-tender. Lungs are clear to auscultation and breath sounds are symmetrical and equal. Cardiovascular: Heart is regular rate and rhythm. There is no murmur or rub auscultated. There is no peripheral edema and pulses are symmetrical and equal. Abdomen: The abdomen is soft and non-tender. There are normal bowel sounds heard in all four quadrants and there is no organomegaly palpated. Musculoskeletal: There is L CVA tenderness. Extremities are non-tender with full range of motion. There is good capillary refill. There is no peripheral edema or calf tenderness elicited. Neurological: Patient is alert and oriented to person, place and time. The patient has symmetrical motor strength in all four extremities. Cranial nerves are grossly intact. Deep tendon reflexes are symmetrical and equal in all four extremities. Psychiatric: The patient is agitated. Triage Information Reviewed: Yes Vital Signs Reviewed: Yes Procedures - Sedation Patient Received Moderate/Deep Sedation with Procedure: No Diagnostics - Laboratory Result Diagrams: 03/21/19 13:35 03/21/19 13:35 Lab Statement: Any lab studies that have been ordered have been reviewed, and results considered in the medical decision making process. - CT CT a/p CT Interpretation Completed By: Radiologist Summary of CT Findings: 1. NO CLEAR ETIOLOGY FOR THE PATIENT'S SYMPTOMS. SPECIFICALLY, NO NEPHROLITHIASIS OR HYDRONEPHROSIS. 2. POSTOPERATIVE CHANGES ABOVE. 3. CORONARY ARTERY DISEASE. ED physician has reviewed this report. Back Pain Course/Dx - Course Course Of Treatment: Ms. Brown ostensibly came in for left flank pain. She was thrashing about and diffficult to get a history from. Her SPO2 tended to be in the 80's and she was placed on O2 and did manage to calm down some. Her labs, U/A and CT abdomen were unremarkable. She is pending a CT head and CXR at this time. She remains on O2. I suspect that she will need to be admitted. - Diagnoses Provider Diagnoses: Back pain, Hypoxia Discharge ED - Sign-Out/Discharge Documenting (check all that apply): Patient Departure - Discharge Plan Condition: Guarded Disposition: ADMITTED TO [facility] - Billing Disposition and Condition Condition: GUARDED Disposition: Admitted to [facility] - Attestation Statements Document Initiated by Scribe: Yes Documenting Scribe: Ginger Marcum Provider For Whom Shantaibe is Documenting (Include Credential): Carlos Lainez MD. Scribe Attestation: Ginger Starks scribed for Carlos Lainez MD. on 03/22/19 at 0848. Scribe Documentation Reviewed: Yes Provider Attestation: The documentation as recorded by the scribeGinger accurately reflects the service I personally performed and the decisions made by Carlos collier MD. Status of Scribe Document: Viewed
[2019-03-21 13:54] LABS: ABS Eosinophils 0.1 10^3/ul (0-0.6); ABS Lymphocytes 2.5 10^3/ul (1.0-4.8); ABS Monocytes 1.1 10^3/ul (0-0.8); ABS Neutrophils 7.3 10^3/ul (1.5-7.7); Hematocrit 47 % (35-47); Hemoglobin 15.9 g/dL (12.0-16.0); Lymphocyte % 22.5 %; Mean Corpuscular HGB Conc 34 g/dL (31-36); Mean Corpuscular Hemoglobin 32 pg (27-31); Mean Corpuscular Volume 93 fL (80-97); Mean Platelet Volume 8.1 fL (7.4-10.4); Platelet Count 243 10^3/uL (150-450); Red Blood Count 4.99 10^6 /uL (3.70-4.87); Red Cell Distribution Width 13 % (10-15)
[2019-03-21 14:07] LABS: INR 1.04 (0.82-1.09)
[2019-03-21 14:13] LABS: Albumin 3.8 g/dL (3.2-5.2); Albumin/Globulin Ratio 1.2 (1-3); BUN/Creatinine Ratio 14.9 (8-20); C Reactive Protein 1.56 mg/L (<8.01); Calcium 9.6 mg/dL (8.6-10.3); EGFR African American 42.2 (>60); EGFR Non-African American 34.9 (>60); Globulin 3.1 g/dL (2-4); Potassium 4.3 mmol/L (3.5-5.0); Total Bilirubin 0.8 mg/dL (0.2-1.0); Total Protein 6.9 g/dL (6.4-8.9); Troponin I 0.01 ng/mL (<0.03)
--- OUTSIDE RECORDS SUMMARY | 2019-03-21 14:44 | XMS REPORT ---
:1950 Author Organization [facility] Care Team Providers Name Role Phone Unavailable Unavailable Unavailable Problems This patient has no known problems. Allergies, Adverse Reactions, Alerts Allergy Name Allergy Status Severity Reaction(s) Onset Inactive Treating Comments Type Date Date Clinician methylparabe Base Active Unknown Reaction 2018-02 Interface n Ingredient Unknown 2-13 morphine Base Active Unknown Reaction 2018-02 Unknown Ingredient Unknown 2-13 tizanidine Base Active Unknown Reaction 2018-02 Interface Ingredient Unknown 2-13 Tricyclic Unknown Active Unknown Reaction 2018-02 Interface Compounds Unknown 2-13 diphenhydram Base Active Unknown Reaction 2018-02 Interface ine Ingredient Unknown 2-13 hydromorphon Base Active Unknown Reaction 2018-02 Interface e Ingredient Unknown 2-13 itraconazole Base Active Unknown Reaction 2018-02 Interface Ingredient Unknown 2-13 lanolin Unknown Active Unknown Reaction 2018-02 Interface Unknown 2-13 milnacipran Base Active Unknown Reaction 2018-02 Interface Ingredient Unknown 2-13 mometasone Base Active Unknown Reaction 2018-02 Interface furoate Ingredient Unknown 2-13 naloxone Base Active Unknown Reaction 2018-02 Interface Ingredient Unknown 2-13 ondansetron Base Active Unknown Reaction 2018-02 Interface Ingredient Unknown 2-13 oxycodone Base Active Unknown Reaction 2018-02 Interface Ingredient Unknown 2-13 oxymorphone Base Active Unknown Reaction 2018-02 Interface Ingredient Unknown 2-13 Penicillins Unknown Active Unknown Reaction 2018-02 Interface Unknown 2-13 pentazocine Base Active Unknown Reaction 2018-02 Interface Ingredient Unknown 2-13 propoxyphene Base Active Unknown Reaction 2018-02 Interface Ingredient Unknown 2-13 sulfasalazin Base Active Unknown Reaction 2018-02 Interface e Ingredient Unknown 2-13 talc Base Active Unknown Reaction 2018-02 Interface Ingredient Unknown 2-13 tramadol Base Active Unknown Reaction 2018-02 Interface Ingredient Unknown 2-13 trazodone Base Active Unknown Reaction 2018-02 Interface Ingredient Unknown 2-13 Adhesive Unknown Active Unknown Reaction 2018-02 Interface Tape Unknown 2-13 alprazolam Base Active Unknown Reaction 2018-02 Interface Ingredient Unknown 2-13 aspirin Base Active Unknown Reaction 2018-02 Interface Ingredient Unknown 2-13 cefaclor Base Active Unknown Reaction 2018-02 Interface Ingredient Unknown 2-13 clarithromyc Base Active Unknown Reaction 2018-02 Interface in Ingredient Unknown 2-13 codeine Base Active Unknown Reaction 2018-02 Interface Ingredient Unknown 2-13 diazepam Base Active Unknown Reaction 2018-02 Interface Ingredient Unknown 2-13 doxycycline Base Active Unknown Reaction 2018-02 Interface Ingredient Unknown 2-13 duloxetine Base Active Unknown Reaction 2018-02 Interface Ingredient Unknown 2-13 fentanyl Base Active Unknown Reaction 2018-02 Interface Ingredient Unknown 2-13 fluoxetine Base Active Unknown Reaction 2018-02 Interface Ingredient Unknown 2-13 gabapentin Base Active Unknown Reaction 2018-02 Interface Ingredient Unknown 2-13 hydroxychlor Base Active Unknown Reaction 2018-02 Interface [place] Ingredient Unknown 2-13 paroxetine Base Active Unknown Reaction 2018-02 Interface Ingredient Unknown 2-13 adhesive Unknown Active Unknown Reaction 2018-02 Interface Unknown 2-13 apple Unknown Active Unknown Reaction 2018-02 Interface Unknown 2-13 black pepper Unknown Active Unknown Reaction 2018-02 Interface Unknown 2-13 Bleach Unknown Active Unknown Reaction 2018-02 Interface (Sodium Unknown 2-13 Hypochlorite ) capsaicin Base Active Unknown Reaction 2018-02 Interface Ingredient Unknown 2-13 cigarette Unknown Active Unknown Reaction 2018-02 Interface smoke Unknown 2-13 Corticostero Unknown Active Unknown Reaction 2018-02 Interface ids Unknown 2-13 (Glucocortic oids) melon Base Active Unknown Reaction 2018-02 Interface Ingredient Unknown 2-13 mupirocin Base Active Unknown Reaction 2018-02 Unknown Ingredient Unknown 2-13 NSAIDS Unknown Active Unknown Reaction 2018-02 Interface (Non-Steroid Unknown 2-13 al Anti-Inflamm a onion Unknown Active Unknown Reaction 2018-02 Interface Unknown 2-13 pepper Base Active Unknown Reaction 2018-02 Interface (genus Ingredient Unknown 2-13 Capsicum) tapentadol Base Active Unknown Reaction 2018-02 Interface Ingredient Unknown 2-13 lettuce Base Active Unknown Reaction 2018-02 Interface Ingredient Unknown 2-13 VINEGAR Unknown Active Unknown Reaction 2018-02 Interface Unknown 2-13 ENVRIONMENTA Unknown Active Unknown Reaction 2018-02 Interface L Unknown 2-13 BANDAIDS Unknown Active Unknown Reaction 2018-02 Interface Unknown 2-13 Medications Ordered Filled Start Stop Current Ordering Indication Dosage Frequency Signature Comments Components Medication Medication Date Date Medication? Clinician (SIG) Name Name Metformin* Metformin* No Unknown Unknown Unknown 2-10 ondansetron ondansetron No Unknown Unknown Unknown HCl 4 mg HCl 4 mg 6-10 tablet tablet Dexlansopra Dexlansopra No Unknown Unknown Unknown zole (Nf) zole (Nf) 6-10 Linaclotide Linaclotide No Unknown Unknown Unknown (Nf) (Nf) 6-10 levocetiriz levocetiriz 2014-02 No Unknown Unknown Unknown ine 5 mg ine 5 mg 2-09 tablet tablet Azelastine Azelastine No Unknown Unknown Unknown 0.15% 0.15% 1-12 Nasal(Nf) Nasal(Nf) Procedures This patient has no known procedures. Results This patient has no known results.
--- OUTSIDE RECORDS SUMMARY | 2019-03-21 14:45 | XMS REPORT ---
:1950 Author Organization [facility] Care Team Providers Name Role Phone Unavailable [...]
--- OUTSIDE RECORDS SUMMARY | 2019-03-21 14:45 | XMS REPORT | Continuity of Care Document ---
:1950 External Reference #:[id number] Author Name Jared Henderson MD (transmitted by agent of provider Dorothea Falcon) Address [address] [place] [address] Care Team Providers Name Role Phone Anila Saul MD - Internal Medicine Care Team Information Orthotic/Prosthetic Practitioner Willi Keith MD - Endocrinology, Care Team Information Orthotic/Prosthetic Practitioner Diabetes & Metabolism Problems Active Problems Provider Date Right upper quadrant pain Tony Fajardo M.D. Onset: 11/02/2011 Myalgia & Myositis Unspecified Tony Fajardo M.D. Onset: 11/02/2011 Type 2 diabetes mellitus Tony Fajardo M.D. Onset: 11/02/2011 Gastroesophageal reflux disease Tony Fajardo M.D. Onset: 11/02/2011 Chronic pain syndrome Ciaran Yang M.D. Onset: 06/18/2013 Degenerative joint disease of hand Ciaran Yang M.D. Onset: 06/18/2013 Osteoarthritis of knee Ciaran Yang M.D. Onset: 06/18/2013 Inflammatory and toxic neuropathy Ciaran Yang M.D. Onset: 06/18/2013 Idiopathic peripheral neuropathy Elli Alberto MD Onset: 03/29/2016 Ptosis of eyelid Elli Alberto MD Onset: 03/29/2016 Demyelinating disease of central nervous Elli Alberto MD Onset: 03/29/2016 system Localized, primary osteoarthritis Aure Lowe M.D. Onset: 04/17/2016 Trochanteric bursitis Aure Lowe M.D. Onset: 09/22/2016 Diabetic peripheral neuropathy associated Elli Alberto MD Onset: 01/15/2017 with type 2 diabetes mellitus Edema Elli Alberto MD Onset: 01/15/2017 Acute renal failure syndrome Cas Jack N.P. Onset: 11/20/2017 Syncope and collapse Cas Jack N.P. Onset: 11/20/2017 Type 2 diabetes mellitus with diabetic Cas Jack N.P. Onset: 2017 neuropathy, unspecified Long-term current use of insulin Cas Jack N.P. Onset: 11/20/2017 Vitamin B6 deficiency Onset: 02/06/2017 Inflammatory polyarthropathy Onset: 12/20/2016 Drug-induced constipation Onset: 12/20/2016 Vomiting Onset: 09/25/2016 Neuropathy Onset: 06/13/2016 Type 2 diabetes mellitus with multiple Onset: 06/07/2016 complications Family history of diverticulitis of colon Onset: 06/07/2016 Arthritis Onset: 06/07/2016 Vitamin D deficiency Onset: 06/07/2016 Hypertriglyceridemia Onset: 06/07/2016 Microcytic hypochromic anemia Onset: 06/22/2015 Muscle weakness Onset: 06/21/2015 Thyroid nodule Onset: 06/10/2014 Migraine with aura Onset: 03/04/2014 Superior vena cava syndrome Onset: 02/19/2014 Peripheral nerve disease Onset: 01/19/2014 Osteoporosis Onset: 01/19/2014 Primary fibromyalgia syndrome Onset: 01/19/2014 Seasonal allergic rhinitis Onset: 01/19/2014 Recurrent major depression Onset: 01/19/2014 Degenerative joint disease involving Onset: 01/19/2014 multiple joints Rosacea Onset: 01/19/2014 Allergy to food Onset: 01/19/2014 Diverticular disease of colon Onset: 03/25/2012 Wheelchair bound Onset: 02/19/1986 Social History Type Date Description Comments Sex Unknown Tobacco Use Start: Unknown End: Former Cigarette Smoker Unknown Cigarette Use Pack Years - 11 Tobacco Use Start: Unknown End: Former Cigarette Smoker 4 Unknown Packs Daily Smoking Status Reviewed: 03/20/19 Former Cigarette Smoker 4 Packs Daily ETOH Use Denies alcohol use Tobacco Use Start: Unknown End: Patient is a former smoker Unknown Tobacco Use Start: Unknown End: Patient is a former smoker Unknown Recreational Drug Use Denies Drug Use Exercise Type/Frequency Does not exercise Allergies, Adverse Reactions, Alerts Active Allergies Reaction Severity Comments Date Clinoril 11/02/2011 Aspirin 03/29/2016 Benadryl 03/29/2016 Biaxin 03/29/2016 Ceclor 03/29/2016 Codeine 11/02/2011 Clarithromycin 03/29/2016 Cortisone 11/02/2011 Clinoril 03/29/2016 Doxepin 11/02/2011 Codeine 03/29/2016 Cortisone pills 03/29/2016 Cymbalta 03/29/2016 Darvocet 03/29/2016 Doxycycline 11/02/2011 Darvon 03/29/2016 Feldene 11/02/2011 Dilaudid generic only 03/29/2016 Elavil 03/29/2016 Exalgo 03/29/2016 Nasonex 11/02/2011 Feldene 03/29/2016 Fentanyl 03/29/2016 Hydroxychloroquine 03/29/2016 Itraconazole 03/29/2016 Lanolin 03/29/2016 Medrol 03/29/2016 Morphine 03/29/2016 Motrin 03/29/2016 Naprosyn 03/29/2016 Oxymorphone 11/02/2011 Nasocort generic only 03/29/2016 Nasonex 03/29/2016 Neurontin 03/29/2016 Penicillin 11/02/2011 Norpramin 03/29/2016 Nucynta 03/29/2016 Talwin Nx 11/02/2011 Opana 03/29/2016 Oxycodone generic only 03/29/2016 Mupirocin 03/29/2016 Paxil 03/29/2016 Penicillin 03/29/2016 Percocet 03/29/2016 Adhesives 11/02/2011 Percodan 03/29/2016 Prozac 03/29/2016 Savella 03/29/2016 Sulfasalazine 03/29/2016 Talc 03/29/2016 Chlorine 11/02/2011 Talwin Nx 03/29/2016 Trazodone 03/29/2016 Apples apple juice, applesauce 11/02/2011 Tricyclics 03/29/2016 Canteloupe 11/02/2011 Ultram 03/29/2016 Honeydew 11/02/2011 Valium 03/29/2016 Melon 11/02/2011 Xanax 03/29/2016 onions raw 11/02/2011 Zanaflex 03/29/2016 Cats 11/02/2011 Zofran 03/29/2016 Dust 11/02/2011 Hydromorphone can take brand name 12/18/2013 Dilaudid Tape 03/29/2016 Chlorine 03/29/2016 Apple Juice, Apple Sauce, 03/29/2016 Cantaloupe, Chlorinated Water,Honr Cat Dander 03/29/2016 Latex 12/18/2013 Cigarette Smoke 03/29/2016 Dust Mites 03/29/2016 Nucynta 07/16/2014 Ragweed 03/29/2016 [place] Lettuce 06/13/2018 Black Pepper 06/13/2018 Banuelos Pepper Green, Red, Yellow 06/13/2018 Vinegar 06/13/2018 Tramadol 02/19/2019 Tizanidine 02/19/2019 Sulindac 02/19/2019 Propoxyphene 02/19/2019 Piroxicam 02/19/2019 Paroxetine 02/19/2019 Ondansetron 02/19/2019 Naproxen 02/19/2019 Naloxone 02/19/2019 Milnacipran 02/19/2019 Ibuprofen 02/19/2019 Gabapentin 02/19/2019 Fluoxetine 02/19/2019 Cefaclor 02/19/2019 Amitriptyline 02/19/2019 Alprazolam 02/19/2019 Acetaminophen 02/19/2019 Acetaminophen 02/19/2019 Desipramine 02/19/2019 Talwin 02/19/2019 Percodan Reformulated June 2008 02/19/2019 Nasacort 02/19/2019 Penicillin V Hives 02/19/2019 Lyrica Other Moderate 02/19/2019 Victoza 03/20/2019 Medications Active Medications SIG Qnty Indications Ordering Date Provider Fluconazole take one tablet by 1tabs Jared Henderson, 03/20/2019 150mg Tablets mouth once for MD yeast infection Novolog Flexpen 20 units with 15ml E11.40 Jared Henderson, 07/25/2018 largest meal up to MD 100Unit/ML Solution twice daily MDD 40 Pen-Inject Freestyle Levar 14 use at least 4 1units E11.40 Jared Henderson, 07/25/2018 Day/[place]/Flash times daily with MD Monitoring System sensor Device Freestyle Levar [address] one sensor 2units E11.40 Colemanberonica Henderson, 07/25/2018 Day/Sensor/Flash every 14 days MD Monitoring System Misc Jardiance 10mg by mouth 30tabs E11.40 Jared Henderson, 04/23/2018 10mg Tablets daily MD Lancet Device use 2 times daily 100units E11.40 Jared Henderson, 01/15/2018 [facility] Pen [place] use with insulin 100units E11.40 Jared Henderson, 01/15/2018 31G X 8 mm pens 4-5 times MD Pate daily Diabetic Shoe e11.40, 1pair Jared Henderson, 12/13/2017 Device [id number], custom inserts to be provided by hat lining blocker (Dr. Costa) Insulin Syringe-Needle use as directed 1Box Jayson Briones, 12/27/2016 U-100 with methotrexate M.D. 31G X 1/4" 1 ML [facility] Methotrexate Sodium Inject 0.5 ML 8units M06.4 Jayson Briones, 07/06/2016 Under The Skin M.D. 50mg/2ML Solution Every Week Clobetasol Propionate Apply Two Times A 45units Kirti Perez, 07/25/2013 Day For Up To Two N.P. 0.05% Ointment Weeks, Stop For 2 Weeks And Repeat, as Needed Vitamin C 1 tab by mouth one Unknown 500mg Chewtabs time per day take with iron Milk Thistle 1tab by mouth a Unknown 70mg day Capsules Sumatriptan Succinate as directed Unknown Refill 6mg/0.5ML Solution Cartridge Atorvastatin Calcium 1/2 by mouth Unknown 10mg every day Tablets Atenolol 1/2 by mouth Unknown 25mg Tablets every day Bumex 2 by mouth every Unknown 2mg Tablets day Dexilant 1 by mouth every Unknown 60mg Capsules DR day Dilaudid 1 tablet every 3-4 Unknown 8mg Tablets hours as needed for pain Estradiol 1 by mouth every Unknown 1mg Tablets day Epipen 2-Justin use as directed Unknown 0.3mg/0.3ML Solution Auto-Inject Linzess 1 by mouth every Unknown 290mcg Capsules day Levocetirizine 1 by mouth every Unknown Dihydrochloride day 5mg Tablets Folic Acid Take 1 Tablet By 90tabs Jayson Briones, 1mg Tablets Mouth Every Day M.D. Klor-Con 10 1 by mouth two Unknown 10Meq Tablets times per day ER Triple Paste As needed Unknown Clotrimazole/Betametha use two times a Unknown sone Dipropionate day until clear 1-0.05% for up to 2 weeks Cream Tresiba Flextouch 40 units once Unknown daily in the 100Unit/ML Solution evenings, Pen-Inject Ondansetron HCL one by mouth every Unknown 4mg 4 hours as needed Tablets for nausea Alpha Lipoic Acid 2 tabs 2 x per day Unknown 100mg Tablets Azelastine HCL (Nasal) spray 2 sprays in Unknown each nostril two 0.1% Solution times a day Baclofen 1 po four times Unknown 20mg Tablets per day Floradix Iron And Herb 2 Teaspoons 10ML Unknown Liquid once daily Imitrex take 1 by mouth as Unknown 100mg Tablets need for migraine, may repeat after 2 hours, maximum 2 tablets in 24 hours, maximum 2 days a week. Ipratropium [place] instill 2 sprays Unknown 0.06% into each nostril Solution 4X a day Metronidazole 2 times per day to Unknown 1% Gel rosacea area Triple Paste as needed Unknown 2% Ointment Fish Oil [place] 3 2 times per day Unknown 2000mg Vitamin D3 4 tabs/day Unknown 1000Unit Capsules Citrate Of Magnesia 2 times per day Unknown 6ml Solution Ysabel-C 2 times per day Unknown 500mg Tablets with meal Powdered Magnesium two times per day Unknown 3TSP 6 G In Fluid Maalox Max as needed Unknown Chew Tabs Mylanta Max Strength as needed Unknown Suspension Tums Ultra Max as needed Unknown Mirvaso every day as Unknown 0.33% Gel needed Medications Administered in Office Medication SIG Qnty Indications Ordering Provider Date Depomedrol 40MG Aure Lowe M.D. 09/22/2016 Injection Depomedrol 40MG Aurecassia Lowe M.D. 09/22/2016 Injection Depomedrol 40MG Letty Hogue M.D. 09/07/2016 Injection Depomedrol 40MG Letty Hogue M.D. 09/07/2016 Injection Depomedrol 40MG Letty Hogue M.D. 05/31/2016 Injection Depomedrol 40MG Letty Hogue M.D. 05/31/2016 Injection Depomedrol 40MG Aure Lowe M.D. 05/19/2016 Injection Depomedrol 40MG Aure Lowe M.D. 05/12/2016 Injection Depomedrol 40MG Aure Lowe M.D. 04/17/2016 Injection Depomedrol 40MG Aure Lowe M.D. 04/17/2016 Injection Inj, Regadenoson, 0.1 MG Baljinder Smith M.D. 07/16/2014 Injection Aminophylline Baljinder Smith M.D. 07/16/2014 Injection Technetium TC 99M Tetrofosmin, Baljinder Smith M.D. 07/16/2014 Per Unit Dose Up To 40 Millicuries Injection Tetanus,Unspecified Unknown 03/22/2011 Injection Pneumococcal,Unspecified Unknown 07/20/2010 Injection Immunizations CPT Code Status Date Vaccine Reaction Lot # 55919 Given 07/06/2016 Pneumococcal Conjugate Vaccine 13 no reaction noted [id number] Valent For Intramuscular Use 96215 Given 07/20/2010 Pneumonia Vaccine 95362 Given 10/20/2009 Flu Vaccine [id number] Given 06/19/2009 Zoster (Zostavax) Vital Signs Date Vital Result Comment 03/20/2019 2:34pm Height 64 inches 5'4" Weight 145.00 lb w/ shoes BMI (Body Mass Index) 24.9 kg/m2 07/30/2018 2:46pm Height 64 inches 5'4" Weight 153.00 lb Heart Rate 81 /min BP Systolic Sitting 106 mmHg BP Diastolic Sitting 60 mmHg Respiratory Rate 14 /min O2 % BldC Oximetry 96 % Room air BMI (Body Mass Index) 26.3 kg/m2 Results Description No Information Available Procedures Date Code Description Status 01/29/2019 34756 EKG, Interpretation Only Completed 12/12/2018 15725 EKG, Interpretation Only Completed 10/28/2018 97911 ECHO Transthorasic Realtime 2D W Doppler & Color Flow Completed Hosp 10/28/2018 69258 Treadmill Interp/Report Only Completed 10/28/2018 78686 Stress Test Supervsn W/Out I/R Completed 07/13/2016 338229068 Bone Mineral Density Test Completed 02/20/1992 85074967 Colonoscopy Completed Medical Devices Description No Information Available Encounters Type Date Location Provider Dx Diagnosis Office Visit 01/29/2019 [facility] Jaimee Kim, N17.9 Acute kidney 9:27a bree Soria M.D. failure, Hospitalists unspecified E11.65 Type 2 diabetes mellitus with hyperglycemia E86.0 Dehydration R11.10 Vomiting, unspecified R53.1 Weakness Office Visit 12/10/2018 [facility] Bon R11.2 Nausea with 11:08a bree Soria M.D. vomiting, Hospitalists unspecified R41.82 Altered mental status, unspecified I16.0 Hypertensive urgency Office Visit 10/23/2018 9:11a 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 01/29/2019 N17.9 Acute kidney failure, unspecified Jaimee Kim M.D. 01/29/2019 E11.65 Type 2 diabetes mellitus with Jaimee Kim M.D. hyperglycemia 01/29/2019 E86.0 Dehydration Jaimee Kim M.D. 01/29/2019 R11.10 Vomiting, unspecified Jaimee Kim M.D. 01/29/2019 R53.1 Weakness Jaimee Kim M.D. 12/12/2018 R94.31 Abnormal electrocardiogram [ECG] [EKG] Ubaldo Castellano M.D., [facility] 12/10/2018 R11.2 Nausea with vomiting, unspecified Bon Smith M.D. 12/10/2018 R41.82 Altered mental status, unspecified Bon Smith M.D. 12/10/2018 I16.0 Hypertensive urgency Bon Smith M.D. 10/28/2018 I48.91 Unspecified atrial fibrillation Ubaldo Castellano M.D., [facility] 10/28/2018 R07.9 Chest pain, unspecified Alexandra Conley MD, [facility] 10/23/2018 R11.2 Nausea with vomiting, unspecified Jolene Low MD 10/23/2018 G89.29 Other chronic pain Jolene Low MD 10/23/2018 I10 Essential (primary) hypertension Jolene Low MD 10/23/2018 K21.9 Gastro-esophageal reflux disease Jolene Low MD without esophagitis Plan of Treatment 03/20/2019 - Jared Henderson MDE11.9 Type 2 diabetes mellitus without complicationsFollow up:MayInstructions:1. Increase Tresiba to 50 units every day. 2. Increase Novolog to 25 units with every meal. 3. If your blood glucose is more than 200 before you eat, at 10 units to your Novolog dose (total of 35 units). 4. Do not use Jardiance if your blood glucose is more than 200. 4. Check your blood glucose beforeevery meal. 5. 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
--- OUTSIDE RECORDS SUMMARY | 2019-03-21 14:45 | XMS REPORT | Continuity of Care Document ---
:1950 External Reference #:[id number] Author Name Kaiden Duncan DO, MPH Address [address] [place] [address], [address] [place] [address] Care Team Providers Name Role Phone Anila Saul M.D. - Internal Care Team Information Maritime Officer Medicine Problems Active Problems Provider Date Type 2 diabetes mellitus Kaiden Duncan DO, MPH Onset: 09/03/2013 Social History Type Date Description Comments Sex Unknown Cigarette Use Former Cigarette Smoker 4 Packs Daily ETOH Use Denies alcohol use Tobacco Use Start: Unknown End: Unknown Patient is a former smoker Smoking Status Reviewed: 03/06/19 Patient is a former smoker Allergies, Adverse [...] Medications SIG Qnty Indications Ordering Date Provider Olga Lidia si-2 by mouth 180tabs Kaiden Duncan, 03/06/2019 8mg Tablets every 6 to 8 DO, MPH hours as directed chronic pain patient Sumatriptan Succinate Unknown 6mg/0.5ML Solution Auto-Inject Alpha-Lipoic Acid take one capsule Unknown 100mg by mouth every Capsules 8-12 hours as directed chronic pain. Atenolol 1 by mouth every Unknown 25mg Tablets day Bumex Unknown 2mg Tablets Epinephrine Unknown 0.3mg/0.3ML Solution Auto-Inject Estradiol si by mouth Unknown 1mg Tablets every day Ipratropium [place] Unknown 0.06% Solution Levocetirizine sig: take 1 by Unknown Dihydrochloride mouth daily 5mg Tablets Vitamin C si by mouth Unknown 500mg Tablets twice a day Metronidazole Unknown 1% Gel Triple Paste Unknown 12.8% Ointment Fish Oil 2 by mouth every Unknown 1000mg Capsules day as directed Jardiance Unknown 10mg Tablets Xultophy Unknown 100-3.6Unit-mg/ML Solution Pen-Inject Novolog Penfill Unknown 100Unit/ML Solution Cartridge Trulicity Unknown 1.5mg/0.5ML Solution Pen-Inject Epiklor 1 daily Unknown 20Meq Packet Folic [...] Unknown 60mg Capsules DR Azelastine HCL Unknown 137mcg/Trade Solution Lipitor 1 by mouth daily Unknown 10mg Tablets Floradix 2 teaspoon twice Unknown Liquid daily before meals Baclofen 1 by mouth every Unknown 20mg Tablets 6-8 hours Clotrimazole/Betamethas Unknown one Dipropionate 1-0.05% Cream Lidocaine sig: apply cream Unknown 4% Cream to affected area three times a day. chronic pain patient Immunizations Description No Information Available Vital Signs Date Vital Result Comment 03/06/2019 2:49pm BP Systolic 122 mmHg BP Diastolic 74 mmHg Heart Rate 76 /min Respiratory Rate 20 /min Height 64 inches 5'4" Weight 142.00 lb Pain Level 9 Pain at this time. Pain Level With Medicine 8 on average with meds Pain Level Without Medicine 9 without meds BMI (Body Mass Index) 24.4 kg/m2 01/03/2019 1:23pm BP Systolic 124 mmHg BP Diastolic 86 mmHg Heart Rate 84 /min Respiratory Rate 20 /min Height 64 inches 5'4" Weight 151.00 lb Pain Level 9 Pain at this time. Pain Level With Medicine 9 on average with meds Pain Level Without Medicine 9 without meds BMI (Body Mass Index) 25.9 kg/m2 Results Description No Information Available Procedures Date Code Description Status 01/03/2019 75944 Therapeutic, Prophylactic Or Diagnostic Injection Subq/Im Completed 11/21/2018 74186 Therapeutic, Prophylactic Or Diagnostic Injection Subq/Im Completed 11/01/2018 34208 Therapeutic, Prophylactic Or Diagnostic Injection Subq/Im Completed 09/23/2018 03696 Therapeutic, Prophylactic Or Diagnostic Injection Subq/Im Completed Medical Devices Description No Information Available Encounters Type Date Location Provider Dx Diagnosis Office Visit 01/03/2019 Main Office as Of Kaiden Duncan DO G89.21 Chronic pain due 1:15p 03/22/13 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 M54.2 Cervicalgia M54.5 Low back pain 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 R53.83 Other fatigue Z71.89 Other specified counseling Office Visit 11/21/2018 3:15p Main Office as Kaiden Duncan 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, 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 M54.2 Cervicalgia M54.5 Low back pain R53.83 Other fatigue Z79.891 nursing home (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 analgesic Office Visit 11/01/2018 1:45p Main Office as Kaiden Duncan [id number] Chronic pain due Of 03/22/13 DO, 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 M54.2 Cervicalgia M54.5 Low back pain Z79.891 nursing home (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 analgesic R53.83 Other fatigue Office Visit 09/23/2018 3:15p Main Office as Kaiden Duncan 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, 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 M54.2 Cervicalgia M54.5 Low back pain R53.83 Other fatigue Z79.891 nursing home (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 analgesic Assessments Date Code Description Provider 03/06/2019 G89.21 Chronic pain due to trauma Duncan, Kaiden, DO, MPH 03/06/2019 M54.2 Cervicalgia Duncan, Kaiden, DO, MPH 03/06/2019 M54.5 Low back pain Duncan, Kaiden, DO, MPH 03/06/2019 Z79.891 nursing home (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 analgesic Duncan, Kaiden , DO, MPH 03/06/2019 R53.83 Other fatigue Duncan, Kaiden, DO, MPH 03/06/2019 Z13.31 Encounter for screening for depression Duncan, Kaiden, DO, MPH 01/03/2019 G89.21 Chronic pain due to trauma Duncan, Kaiden, DO, MPH 01/03/2019 M54.2 Cervicalgia Duncan, Kaiden, DO, MPH 01/03/2019 M54.5 Low back pain Duncan, Kaiden, DO, MPH 01/03/2019 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 Duncan, Kaiden , DO, MPH 01/03/2019 R53.83 Other fatigue Duncan, Kaiden, DO, MPH 01/03/2019 Z71.89 Other specified counseling Duncan, Kaiden, DO, MPH 11/21/2018 G89.21 Chronic pain due to trauma Duncan, Kaiden, DO, MPH 11/21/2018 M54.2 Cervicalgia Duncan, Kaiden, DO, MPH 11/21/2018 M54.5 Low back pain Duncan, Kaiden, DO, MPH 11/21/2018 R53.83 Other fatigue Duncan, Kaiden, DO, MPH 11/21/2018 Z79.891 nursing home (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 analgesic Duncan, Kaiden , DO, MPH 11/01/2018 G89.21 Chronic pain due to trauma Duncan, Kaiden, DO, MPH 11/01/2018 M54.2 Cervicalgia Duncan, Kaiden, DO, MPH 11/01/2018 M54.5 Low back pain Duncan, Kaiden, DO, MPH 11/01/2018 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 Duncan, Kaiden , DO, MPH 11/01/2018 R53.83 Other fatigue Duncan, Kaiden, DO, MPH 09/23/2018 G89.21 Chronic pain due to trauma Kaiden Duncan DO MPH 09/23/2018 M54.2 Cervicalgia Kaiden Duncan DO MPH 09/23/2018 M54.5 Low back pain Kaiden Duncan DO MPH 09/23/2018 R53.83 Other fatigue Kaiden Duncan DO MPH 09/23/2018 Z79.891 nursing home (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 analgesic Kaiden Duncan DO MPH Plan of Treatment Future Appointment(s):04/02/2019 2:45 pm - Kaiden Duncan DO MPH [...] comfortable when current medical therapy is rendered.Z79.891 nursing home (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 analgesicNew Labs:Urine Drug Screen, Ordered: 03/06/19Comments:Urine drug screen sample taken today to monitor [...] injection-B12 document for lot number and expiration date.)Z13.31 Encounter for screening for depressionComments:PHQ-9 Depression Screen administered today, results were negative at this time. No positive symptoms on the Patient Health Questionnaire. Will follow up or repeat Screen as necessary in the future Will follow as pertains to their pain. 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 Importance of regular nutrition throughout the day discussed.Activity as toleratedContinue with PCP Functional Status Description No Information Available Mental Status Description No Information Available Referrals Description No Information Available
--- OUTSIDE RECORDS SUMMARY | 2019-03-21 14:45 | XMS REPORT ---
:1950 Author Organization [facility] Care Team Providers Name Role Phone Unavailable [...]
--- OUTSIDE RECORDS SUMMARY | 2019-03-21 14:45 | XMS REPORT ---
:1950 Author Organization [facility] Care Team Providers Name Role Phone Unavailable [...]
--- OUTSIDE RECORDS SUMMARY | 2019-03-21 14:45 | XMS REPORT ---
:1950 Author Organization [facility] Care Team Providers Name Role Phone Unavailable [...]
--- OUTSIDE RECORDS SUMMARY | 2019-03-21 14:45 | XMS REPORT ---
:1950 Author Organization [facility] Care Team Providers Name Role Phone Unavailable [...]
--- OUTSIDE RECORDS SUMMARY | 2019-03-21 14:45 | XMS REPORT ---
:1950 Author Organization [facility] Care Team Providers Name Role Phone Unavailable [...]
--- OUTSIDE RECORDS SUMMARY | 2019-03-21 14:45 | XMS REPORT ---
:1950 Author Organization [facility] Care Team Providers Name Role Phone [...]
--- OUTSIDE RECORDS SUMMARY | 2019-03-21 14:45 | XMS REPORT ---
:1950 Author Organization [facility] Care Team Providers Name Role Phone Unavailable [...]
--- OUTSIDE RECORDS SUMMARY | 2019-03-21 14:45 | XMS REPORT ---
:1950 Author Organization [facility] Care Team Providers Name Role Phone Unavailable [...]
--- OUTSIDE RECORDS SUMMARY | 2019-03-21 14:45 | XMS REPORT ---
:1950 Author Organization [facility] Care Team Providers Name Role Phone Unavailable [...]
--- OUTSIDE RECORDS SUMMARY | 2019-03-21 14:45 | XMS REPORT ---
:1950 Author Organization [facility] Care Team Providers Name Role Phone Unavailable [...]
--- OUTSIDE RECORDS SUMMARY | 2019-03-21 14:45 | XMS REPORT ---
:1950 Author Organization [facility] Care Team Providers Name Role Phone Unavailable [...]
--- OUTSIDE RECORDS SUMMARY | 2019-03-21 14:45 | XMS REPORT ---
:1950 Author Organization [facility] Care Team Providers Name Role Phone Unavailable [...]
--- OUTSIDE RECORDS SUMMARY | 2019-03-21 14:45 | XMS REPORT ---
:1950 Author Organization [facility] Care Team Providers Name Role Phone Unavailable [...]
--- OUTSIDE RECORDS SUMMARY | 2019-03-21 14:45 | XMS REPORT ---
:1950 Author Organization [facility] Care Team Providers Name Role Phone Unavailable [...]
--- OUTSIDE RECORDS SUMMARY | 2019-03-21 14:45 | XMS REPORT | Continuity of Care Document ---
:1950 External Reference #:[id number] Author Name Jared Henderson MD (transmitted by agent of provider Albertina Walter) Address [address] [place] [address] Care Team Providers Name Role Phone Anila Saul MD - Internal Medicine Care Team Information Resident Caregiver [phone] Willi Keith MD - Endocrinology, Care Team Information Resident Caregiver Diabetes & Metabolism Problems Active Problems Provider [...] Solution twice daily MDD 40 Pen-Inject Freestyle Leavr 14 use at least 4 1units E11.40 Jared Henderson, 07/25/2018 Day/[place]aney/Flash times daily with MD Monitoring System sensor Device Freestyle Levar [address] one sensor 2units E11.40 Jared Henderson, 07/25/2018 Day/Sensor/Flash every 14 days MD Monitoring System Misc Jardiance 10mg by mouth 30tabs E11.40 Jared Henderson, 04/23/2018 10mg Tablets daily MD Lancet Device use 2 times daily 100units E11.40 Jared Henderson, 01/15/2018 [facility] Pen [place] use with insulin 100units E11.40 Jared Henderson, 01/15/2018 31G X 8 mm pens 4-5 times MD Pate daily Diabetic Shoe e11.40, 1pair Jared Henderson, 12/13/2017 Device [id number], custom inserts to be provided by casino gaming inspector (Dr. Costa) Insulin Syringe-Needle use as directed 1Box Jayson Briones, 12/27/2016 U-100 with methotrexate M.D. 31G X 1/4" 1 ML [facility] Methotrexate Sodium Inject 0.5 ML 8units M06.4 Jayson Briones, 07/06/2016 Under The Skin M.DDane 50mg/2ML Solution Every Week Clobetasol Propionate Apply [...] hours, maximum 2 days a week. Ipratropium [place] instill 2 sprays Unknown 0.06% into each nostril Solution 4X a day Metronidazole 2 times per day to Unknown 1% Gel rosacea area Triple Paste as needed Unknown 2% Ointment Fish Oil [place] 3 2 times per day Unknown 2000mg [...] Aure Lowe M.D. 09/22/2016 Injection Depomedrol 40MG Aureshannon Lowe M.D. 09/22/2016 Injection Depomedrol 40MG Letty Galina Hogue 09/07/2016 Injection Depomedrol 40MG Letty Hogue M.D. [...] Code Status Date Vaccine Reaction Lot # [id number] Given 07/06/2016 Pneumococcal Conjugate Vaccine 13 no reaction noted [id number] Valent For Intramuscular Use 19029 Given 07/20/2010 Pneumonia Vaccine 25515 Given 10/20/2009 Flu Vaccine 57128 Given 06/19/2009 Zoster (Zostavax) Vital Signs Date [...] Available Procedures Date Code Description Status 01/29/2019 73726 EKG, Interpretation Only Completed 12/12/2018 16760 EKG, Interpretation Only Completed 10/28/2018 48486 ECHO Transthorasic Realtime 2D W Doppler & Color Flow Completed Hosp 10/28/2018 17748 Treadmill Interp/Report Only Completed 10/28/2018 67988 Stress Test Supervsn W/Out I/R Completed 07/13/2016 406645599 Bone Mineral Density Test Completed 02/20/1992 26600620 Colonoscopy Completed Medical Devices Description No Information Available Encounters Type Date Location Provider Dx Diagnosis Office Visit 01/29/2019 [facility] Jaimee Kim, N17.9 Acute kidney 9:27a bree Soria M.D. failure, Hospitalists unspecified E11.65 Type 2 diabetes mellitus with hyperglycemia E86.0 Dehydration R11.10 Vomiting, unspecified R53.1 Weakness Office Visit 12/10/2018 [facility] Bon R11.2 Nausea with 11:08a bree Soria M.D. vomiting, Hospitalists unspecified R41.82 Altered mental status, unspecified I16.0 Hypertensive urgency Office Visit 10/23/2018 9:11a [facility] Jolene R11.2 Nausea with bree Soria MD vomiting, Hospitalists unspecified G89.29 Other chronic pain I10 Essential (primary) hypertension K21.9 Gastro-esophageal reflux disease without esophagitis Assessments Date Code Description Provider 03/20/2019 E11.9 Type 2 diabetes mellitus without Jared Henderson MD complications 03/20/2019 Z79.4 long-term (current) use of insulin Jared Henderson MD 01/31/2019 R11.2 Nausea with vomiting, unspecified Fausto Vallecillo MD 01/31/2019 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 01/29/2019 E11.65 Type 2 diabetes mellitus with Jaimee Kim M.D. hyperglycemia 01/29/2019 E86.0 Dehydration Jaimee Kim M.D. 01/29/2019 R11.10 Vomiting, unspecified Jaimee Kim M.D. 01/29/2019 R53.1 Weakness Jaimee Kim M.D. 12/12/2018 R94.31 Abnormal electrocardiogram [ECG] [EKG] Ubaldo Castellano M.D., [facility], [facility] 12/10/2018 R11.2 Nausea with vomiting, unspecified Bon Smith M.D. 12/10/2018 R41.82 Altered mental status, unspecified Bon Smith M.D. 12/10/2018 I16.0 Hypertensive urgency Bon Smith M.D. 10/28/2018 I48.91 Unspecified atrial fibrillation Ubaldo Castellano M.D., [facility], [facility] 10/28/2018 R07.9 Chest pain, unspecified Alexandra Conley MD, [facility], [facility] 10/23/2018 R11.2 Nausea with vomiting, unspecified Jolene Low MD 10/23/2018 G89.29 Other chronic pain Jolene Low MD 10/23/2018 I10 Essential (primary) hypertension Jolene Low MD 10/23/2018 K21.9 Gastro-esophageal reflux disease Jolene Low MD without esophagitis Plan of Treatment Future Appointment(s):07/16/2019 4:20 pm - Jared Henderson MD at [facility]03/20/2019 - Jared Henderson MDE11.9 Type 2 diabetes [...] Take fluconazole 150mg once for yeast infection.Z79.4 long-term (current) use of insulin Functional Status Description No Information Available Mental Status Description No Information Available Referrals Description No Information Available
--- OUTSIDE RECORDS SUMMARY | 2019-03-21 14:45 | XMS REPORT ---
:1950 Author Organization [facility] Care Team Providers Name Role Phone Unavailable [...]
--- OUTSIDE RECORDS SUMMARY | 2019-03-21 14:45 | XMS REPORT ---
:1950 Author Organization [facility] Care Team Providers Name Role Phone Unavailable [...]
--- OUTSIDE RECORDS SUMMARY | 2019-03-21 14:45 | XMS REPORT ---
:1950 Author Organization [facility] Care Team Providers Name Role Phone Unavailable [...]
--- OUTSIDE RECORDS SUMMARY | 2019-03-21 14:45 | XMS REPORT ---
:1950 Author Organization [facility] Care Team Providers Name Role Phone Unavailable [...]
--- OUTSIDE RECORDS SUMMARY | 2019-03-21 14:46 | XMS REPORT ---
:1950 Author Organization [facility] Care Team Providers Name Role Phone Unavailable [...]
--- OUTSIDE RECORDS SUMMARY | 2019-03-21 14:46 | XMS REPORT ---
:1950 Author Organization [facility] Care Team Providers Name Role Phone Unavailable [...]
[2019-03-21 16:41] LABS: Urine Appearance Clear; Urine Bilirubin Negative (Negative); Urine Blood Negative (Negative); Urine Color Yellow; Urine Glucose 3+(>=500 mg/dL) (Negative); Urine Ketones Negative (Negative); Urine Nitrite Negative (Negative); Urine Protein Negative (Negative); Urine Specific Gravity 1.022 (1.010-1.030); Urine Urobilinogen Negative (Negative)
--- NOTE | 2019-03-21 19:26 | ED ---
Progress - Progress Note Progress Note: Pt is a signout from Dr. Lainez at 1900 on 03/21/[address] CXR reveals no obvious infiltrate or effusion. Brain CT reveals: IMPRESSION: 1.No acute intracranial findings or change in appearance of the brain since prior study. 2. Stable left posterior extra-axial CSF density collection, possibly an arachnoid cyst. 3. Resolution of right periorbital skin contusion and decreased size of right pre zygomatic hematoma. 4. Study limited by motion. Administered 4 mg of dilaudid PO and gave insulin. Dr. Cary will admit the pt to [facility]. Course/Dx - Course Course Of Treatment: CXR reveals no obvious infiltrate or effusion. Brain CT reveals: IMPRESSION: 1.No acute intracranial findings or change in appearance of the brain since. prior study. 2. Stable left posterior extra-axial CSF density collection, possibly an. arachnoid cyst. 3. Resolution of right periorbital skin contusion and decreased size of right. pre zygomatic hematoma. 4. Study limited by motion. Final Dx are hypoxia and back pain. Administered 4 mg of dilaudid PO and gave insulin. Dr. Cary will admit the pt to [facility]. - Diagnoses Provider Diagnoses: Back pain, Hypoxia - Provider Notifications Discussed Care Of Patient With: Halie Cray - Dr. Cary will admit the pt to [facility]. Discharge ED - Sign-Out/Discharge Documenting (check all that apply): Patient Departure - admit, Receiving Sign- Out Receiving patient FROM: Carlos Lainez - Discharge Plan Condition: Guarded Disposition: ADMITTED TO [facility] - Billing Disposition and Condition Condition: GUARDED Disposition: Admitted to [facility] - Attestation Statements Document Initiated by Shantaibe: Yes Documenting Scribe: Wilbur Choi Provider For Whom Bishop is Documenting (Include Credential): Kary Scott MD Scribe Attestation: Wilbur Starks, scribed for Kary Scott MD on 03/22/19 at 0526. Scribe Documentation Reviewed: Yes Provider Attestation: The documentation as recorded by the scribeWilbur accurately reflects the service I personally performed and the decisions made by me, Kary Scott MD Status of Scribe Document: Viewed
[2019-03-21] MEDS ORDERED: HYDROmorphone TAB* 4 MG PO ONE (21:02)
[2019-03-21] MEDS ORDERED: Insulin REGULAR(*) 1 UNITS UNIT SUBCUT ONE (21:05)
[2019-03-21 21:42] LABS: Urine Benzodiazepine Screen None Detected (None Detect); Urine Opiates Screen Presumptive Positive (None Detect)
[2019-03-21] MEDS ORDERED: IPRATROPIUM BR (NF)0.03% NASAL 1 SPRAY BTL BOTH NARES PRN (22:51)
[2019-03-21] MEDS ORDERED: Ondansetron TAB* 4 MG PO PRN (22:51)
[2019-03-21] MEDS ORDERED: Clobetasol 0.05% OINT* 30 GM TUBE TOPICAL PRN (22:51)
[2019-03-21] MEDS ORDERED: Baclofen TAB* 10 MG ONE (23:23)
[2019-03-21] MEDS: HYDROmorphone TAB* 4 MG PO PRN (23:25)
[2019-03-21] MEDS: Baclofen TAB* 20 MG PO PRN (23:25)
[2019-03-22] MEDS: Polyethyl Glycol/Propylene Gly OPHTH.SOLN BOTH EYES PRN ×3 (01:38→22:49)
[2019-03-22] MEDS: NS 0.9% 1000 ML** 1,000 ML IV SCH ×2 (02:16→16:05)
[2019-03-22] MEDS ORDERED: Dextrose 50% Syringe 50 ML* 25 GM/50 ML SYRINGE IV PUSH PRN (04:38)
--- NOTE | 2019-03-22 04:43 | ADMNOTE ---
Subjective Interval History: This is my HP 68 yo female on chronic pain medications at home comes in with various pain complaints. She stopped taking all of her medications 3-4 days ago because she felt "off". She really couldnt explain what 'feeling off" meant. But she said she was worried that her medications would worsen how she felt. She also stopped eating she said. Gradually her pain problems started. She said she has this Stabbing sensation in her left flank. CT abdomen ws done and showed no explanation for her pain. Patient is also flailing around, very restless, coming in and out of consciousness. Vitals were stable when she arrived. Then her oxygen level requirement started going up down between RA and 7L. CXR was done and looked normal. ABG showed hypoxemia. She had drug screen which was only pos for opiates. Her UA is normal. She has mildly elevated WBC and she has an SRINIVAS. From chart review, this is also the patient who is frequently admitted for N/V with syncopal episodes of unknown etiology. Family History: Unchanged from Admission Social History: Unchanged from Admission Past Medical History: Unchanged from Admission Review of Systems - Measurements Intake and Output: Intake and Output Last 24 Hours 03/19/19 03/20/19 03/21/19 03/22/19 06:59 06:59 06:59 06:59 Weight 142 lb 6.4 oz - Review of Systems Constitutional Symptoms: Positive: Weakness, Fatigue, Unexplained Falls Pulmonary: Negative: Normal, Cough, Sputum, Hemoptysis, Wheezing, Respiratory Distress, Shortness of Breath, COPD, Asthma, Exercise Intolerance, Home Oxygen, Other Cardiology: Positive: Chest Pain Negative: Normal, Shortness of Breath, Palpitations, Swelling of Ankles, Peripheral Vascular Dis, Edema, Faintness, Syncope, Claudication, Proximal NocturnalDyspnea, Orthopnoea, Other Gastroenterology: Positive: Nausea Negative: Normal, Abdominal Pain, Vomiting, Anorexia, Indigestion, Difficulty Swallowing, Heartburn, Constipation, Diarrhea, Blood in Stools, Change in Bowel Habits, Haematemesis, Melena, Other Genital - Urinary: Negative: Normal, Dysuria, Hematuria, Polyuria, Nocturia, Other Musculoskeletal: Positive: Low Back Pain Negative: Joint Pain, Joint Stiffness, Arthritis, Osteoporosis, Sciatica, Joint Deformities, Kyphoscoliosis, Other Neurology: Negative: Normal, Headache, Migraines, Change in Vision, Diplopia, Dizziness , Change in Balancing, Change in Coordination, Change in Memory, Change in Speech, Change in Sphincter Function, Change in Walking, Numbness\\Paresthesiae, Unexplained Weakness, Hx of Stroke\\TIA, Hx of Seizures, Other Psychiatry: Negative: Normal, Depression, Anxiety, Depressed Mood, Anhedonia, Sexual Dysfunction, Weight Change, Guilt Feelings, Tearfulness, Unusual Fatigue, Unusual Anxiety, Suicidal Ideation, Hypomania, Eating Disorders, Other Objective Active Medications: Atenolol (Tenormin Tab*) 25 mg PO DAILY REPLACED BY [facility] Atorvastatin Calcium (Lipitor*) 5 mg PO BEDTIME PETER Azelastine HCl (Astepro 0.15% Nasal (Nf)) 2 spray BOTH NARES BID PETER Baclofen (Lioresal Tab*) 20 mg PO QID PRN PRN Reason: PAIN Last Admin: 03/21/19 23:25 Dose: 20 mg Bumetanide (Bumex Tab*) 2 mg PO 0900,1800 REPLACED BY [facility] Cetirizine HCl (Zyrtec*) 10 mg PO BEDTIME REPLACED BY [facility] Clobetasol Propionate (Clobetasol 0.05% Oint*) 1 applic TOPICAL BID PRN PRN Reason: RASH Dextrose (D50w Syringe 50 Ml*) 12.5 gm IV PUSH .FOR FS < 60 - SS PRN PRN Reason: FS < 60 Heparin Sodium (Porcine) (Heparin Vial(*)) 5,000 units SUBCUT Q8HR REPLACED BY [facility] Hydromorphone HCl (Dilaudid Tab*) 8 mg PO Q4H PRN PRN Reason: PAIN - SEVERE Last Admin: 03/21/19 23:25 Dose: 8 mg Sodium Chloride (Ns 0.9% 1000 Ml) 1,000 mls @ 75 mls/hr IV PER RATE PETER Last Admin: 03/22/19 02:16 Dose: 75 mls/hr Insulin Human Lispro (Humalog*) 0 units SUBCUT ACHS PETER; Protocol Ipratropium [place] (Ipratropium [place]) 1 spray BOTH NARES QID PRN PRN Reason: CONGESTION Ondansetron HCl (Zofran Tab*) 4 mg PO QID PRN PRN Reason: NAUSEA Polyethyl Glycol/Propylene Glycol (Lubricant Eye Drops) 1 drop BOTH EYES Q2H PRN PRN Reason: DRY EYE Last Admin: 03/22/19 01:38 Dose: 1 drop Vital Signs - 8 hr 03/21/19 03/21/19 03/21/19 21:00 21:03 21:05 Temperature 98.9 F Pulse Rate 87 82 79 Respiratory 22 16 24 Rate Blood Pressure 146/107 146/107 (mmHg) O2 Sat by Pulse 93 94 Oximetry 03/21/19 03/21/19 03/21/19 21:18 21:21 22:00 Temperature Pulse Rate 73 74 Respiratory 22 24 22 Rate Blood Pressure 138/79 (mmHg) O2 Sat by Pulse 92 87 Oximetry 03/21/19 03/21/19 03/21/19 23:00 23:19 23:25 Temperature Pulse Rate 72 Respiratory 19 24 24 Rate Blood Pressure 154/70 (mmHg) O2 Sat by Pulse Oximetry 03/21/19 03/21/19 03/22/19 23:30 23:49 00:00 Temperature 97.9 F Pulse Rate 75 Respiratory 24 24 23 Rate Blood Pressure 154/70 134/103 (mmHg) O2 Sat by Pulse 95 Oximetry 03/22/19 03/22/19 03/22/19 00:12 00:36 01:20 Temperature 98.9 F 98.5 F Pulse Rate 78 77 Respiratory 24 24 22 Rate Blood Pressure 134/103 123/70 (mmHg) O2 Sat by Pulse 95 97 Oximetry 03/22/19 03:23 Temperature 98.3 F Pulse Rate 79 Respiratory 21 Rate Blood Pressure 134/97 (mmHg) O2 Sat by Pulse 97 Oximetry Oxygen Devices in Use Now: Nasal Cannula Appearance: she is restless, with choreiform movements Eyes: No Scleral Icterus, PERRLA Ears/Nose/Mouth/Throat: - - poor dentition Neck: NL Appearance and Movements; NL JVP Respiratory: Symmetrical Chest Expansion and Respiratory Effort, Clear to Auscultation Cardiovascular: NL Sounds; No Murmurs; No JVD, No Edema Abdominal: NL Sounds; No Tenderness; No Distention, No Hepatosplenomegaly Extremities: No Edema Skin: No Rash or Ulcers Neurological: Alert and Oriented x 3, - - difficult to evaluate due to her restlessness Result Diagrams: 03/21/19 13:35 03/21/19 13:35 Assess/Plan/Problems-Billing Assessment: - Patient Problems (1) Restlessness and agitation Current Visit: Yes Status: Acute Code(s): R45.1 - RESTLESSNESS AND AGITATION SNOMED Code(s): 014330588 Comment: pt persistently flailing around, looks like choreiform movements Tox screen only pos for opiates. She said she stopped taking all of her medications a few days ago, she could just be withdrawing? But at the same time , she has polypharmacy, and toxic levels of any medications she is on could be causing the restlessness? I restarted all of her meds, if in fact she is telling the truth about stopping all of them. We'll see what that does. CT head was done and was neg. UA is neg. Will get a CT chest to r/o PNA since she is hypoxic. (2) Hypoxemia Current Visit: Yes Status: Acute Code(s): R09.02 - HYPOXEMIA SNOMED Code(s ): 017778515 Comment: she has been fluctuating between RA and 7L NC by how quickly her oxygen requirement keeps changing like that, it's likely atelectasis. Will get a CT chest (3) Opioid dependence Current Visit: No Status: Acute Code(s): F11.20 - OPIOID DEPENDENCE, UNCOMPLICATED SNOMED Code(s): 27537876 Comment: restarted her home dose dilaudid (4) Diabetes mellitus Current Visit: No Status: Chronic Priority: Low Code(s): E11.9 - TYPE 2 DIABETES MELLITUS WITHOUT COMPLICATIONS SNOMED Code(s): 56137417 Comment: hyperglycemic on presentation, given insulin in the ED will just start her on meal coverage and lantus daily (5) Arthritis Current Visit: No Status: Chronic Priority: Low Code(s): M19.90 - UNSPECIFIED OSTEOARTHRITIS, UNSPECIFIED SITE SNOMED Code(s): 8196426 Comment: on chronic narcotics (6) Fibromyalgia Current Visit: No Status: Chronic Code(s): M79.7 - FIBROMYALGIA SNOMED Code(s): 701598905 Comment: -On Dilaudid, Oxycodone (holding), Baclofen Of note, she has SRINIVAS, will need to stay mindful that these meds are renally cleared (7) GERD (gastroesophageal reflux disease) Current Visit: No Status: Chronic Code(s): K21.9 - GASTRO-ESOPHAGEAL REFLUX DISEASE WITHOUT ESOPHAGITIS SNOMED Code(s): 436868353 Comment: -Continue PPI (8) Hypertension Current Visit: No Status: Chronic Code(s): I10 - ESSENTIAL (PRIMARY) HYPERTENSION SNOMED Code(s): 89662750 Comment: -Holding Bumex due to SRINIVAS con atenolol (9) Polypharmacy Current Visit: No Status: Chronic Code(s): Z79.899 - OTHER USP ( CURRENT) DRUG THERAPY SNOMED Code(s): 047472179 Comment: -Reports she has home health aide that helps with meds, suggest pharmacy do adequate med rec and consolidate classes where able. -Holding all supplements and vitamins -Holding Estradiol (10) Psychosocial impairment Current Visit: No Status: Chronic Code(s): Z65.9 - PROBLEM RELATED TO UNSPECIFIED PSYCHOSOCIAL CIRCUMSTANCES SNOMED Code(s): 642296658 Comment: lives alone, has home health aid who comes periodically. Has not taken her meds in days for unknown reason and now seems lost on how to take them which is one of the reasons why she came to the ED (11) SRINIVAS (acute kidney injury) Current Visit: No Status: Resolved Code(s): N17.9 - ACUTE KIDNEY FAILURE, UNSPECIFIED SNOMED Code(s): 11627660 Comment: Could be pre-renal from dehydration IVF hold bumex (12) DVT prophylaxis Current Visit: No Status: Chronic Code(s): Z29.9 - ENCOUNTER FOR PROPHYLACTIC MEASURES, UNSPECIFIED SNOMED Code(s): 725621279 Comment: heparin scc (13) Full code status Current Visit: No Status: Chronic Code(s): Z78.9 - OTHER SPECIFIED HEALTH STATUS SNOMED Code(s): 718720086
[2019-03-22] MEDS: Heparin VIAL(*) 5000 UNITS/ML VIAL (FIVE THOUSAND) SUBCUT SCH ×3 (05:29→22:16)
[2019-03-22] MEDS: HYDROmorphone TAB* 4 MG PO PRN ×3 (05:30→22:47)
[2019-03-22] MEDS: Baclofen TAB* 20 MG PO PRN ×3 (05:44→22:47)
[2019-03-22] MEDS: Insulin GLARGINE(*) 1 UNITS UNIT SUBCUT SCH (06:53)
[2019-03-22] MEDS: Atenolol TAB* 25 MG PO SCH (08:00)
[2019-03-22] MEDS: Azelastine 0.15% NASAL(NF) 30 ML BTL BOTH NARES SCH ×2 (08:00→22:17)
[2019-03-22] MEDS: Insulin LISPRO* 1 UNITS UNIT SUBCUT SCH ×4 (08:26→22:15)
[2019-03-22 08:49] LABS: ABS Eosinophils 0.1 10^3/ul (0-0.6); ABS Lymphocytes 4.1 10^3/ul (1.0-4.8); ABS Monocytes 1.4 10^3/ul (0-0.8); ABS Neutrophils 7.6 10^3/ul (1.5-7.7); Eosinophil % 0.8 %; Hematocrit 45 % (35-47); Hemoglobin 15.7 g/dL (12.0-16.0); Mean Corpuscular HGB Conc 35 g/dL (31-36); Mean Corpuscular Hemoglobin 32 pg (27-31); Mean Corpuscular Volume 93 fL (80-97); Mean Platelet Volume 8.8 fL (7.4-10.4); Platelet Count 223 10^3/uL (150-450); Red Blood Count 4.85 10^6 /uL (3.70-4.87); Red Cell Distribution Width 13 % (10-15); White Blood Count 13.1 10^3/uL (3.5-10.8)
[2019-03-22] MEDS ORDERED: Bumetanide TAB* 2 MG PO SCH (09:00)
[2019-03-22 09:09] LABS: Albumin 3.7 g/dL (3.2-5.2); Albumin/Globulin Ratio 1.2 (1-3); BUN/Creatinine Ratio 19.6 (8-20); Calcium 9.2 mg/dL (8.6-10.3); EGFR African American 61.3 (>60); EGFR Non-African American 50.7 (>60); Potassium 4.2 mmol/L (3.5-5.0); Total Bilirubin 1.1 mg/dL (0.2-1.0); Total Protein 6.7 g/dL (6.4-8.9)
[2019-03-22 09:23] LABS: TSH (Thyroid Stimulating Horm) 0.77 mcIU/mL (0.34-5.60)
[2019-03-22] MEDS: hydrOXYzine HCL TAB* 10 MG PO PRN (12:35)
[2019-03-22 13:16] LABS: C Reactive Protein 3.17 mg/L (<8.01); Magnesium 2.2 mg/dL (1.9-2.7); Phosphorus 4.4 mg/dL (2.5-5.0)
[2019-03-22] MEDS: Atorvastatin* 10 MG TAB PO SCH (22:47)
[2019-03-22] MEDS: Cetirizine* 10 MG TAB PO SCH (22:48)
[2019-03-23] MEDS: Polyethyl Glycol/Propylene Gly OPHTH.SOLN BOTH EYES PRN ×4 (00:59→21:00)
[2019-03-23] MEDS: HYDROmorphone TAB* 4 MG PO PRN ×3 (03:43→21:05)
[2019-03-23] MEDS: NS 0.9% 1000 ML** 1,000 ML IV SCH (03:45)
[2019-03-23] MEDS: Insulin GLARGINE(*) 1 UNITS UNIT SUBCUT SCH (05:26)
[2019-03-23] MEDS: Baclofen TAB* 20 MG PO PRN ×2 (05:26→21:04)
[2019-03-23] MEDS: Heparin VIAL(*) 5000 UNITS/ML VIAL (FIVE THOUSAND) SUBCUT SCH ×3 (05:26→21:02)
[2019-03-23] MEDS: Atenolol TAB* 25 MG PO SCH (08:09)
[2019-03-23] MEDS: Insulin LISPRO* 1 UNITS UNIT SUBCUT SCH ×4 (08:10→21:03)
[2019-03-23] MEDS: Azelastine 0.15% NASAL(NF) 30 ML BTL BOTH NARES SCH ×2 (08:10→21:13)
--- NOTE | 2019-03-23 11:35 | PN ---
Subjective - Subjective Reason for Note: Progress Note History: Jessica Brown no longer has abnormal movements. She continues to have her chronic pain. She has constipation and some resulting abdominal pain. Otherwise, she has no new symptoms. Active Problems: Active Problems Constipation (Acute) K59.00 -Acute on chronic leading to N/V -PRN Zofran, IVF total of 3L NS, now at 100cc /hr -Start Plyethlyne glycol, start dulcolax suppository, start linzess -Opiate induced, favor enema over oral given N/V if unable to have BM today Hypoxemia (Acute) R09.02 she has been fluctuating between RA and 7L NC by how quickly her oxygen requirement keeps changing like that, it's likely atelectasis. Will get a CT chest Non compliance w medication regimen (Acute) Z91.14 Opioid dependence (Acute) F11.20 restarted her home dose dilaudid Restlessness and agitation (Acute) R45.1 pt persistently flailing around, looks like choreiform movements Tox screen only pos for opiates. She said she stopped taking all of her medications a few days ago, she could just be withdrawing? But at the same time, she has polypharmacy, and toxic levels of any medications she is on could be causing the restlessness? I restarted all of her meds, if in fact she is telling the truth about stopping all of them. We'll see what that does. CT head was done and was neg. UA is neg. Will get a CT chest to r/o PNA since she is hypoxic. Arthritis (Chronic) M19.90 on chronic narcotics DVT prophylaxis (Chronic) Z29.9 heparin scc Diabetes mellitus (Chronic) E11.9 hyperglycemic on presentation, given insulin in the ED will just start her on meal coverage and lantus daily Diverticulosis (Chronic) K57.90 Fibromyalgia (Chronic) M79.7 -On Dilaudid, Oxycodone (holding), Baclofen Of note, she has SRINIVAS, will need to stay mindful that these meds are renally cleared Full code status (Chronic) Z78.9 GERD (gastroesophageal reflux disease) (Chronic) K21.9 -Continue PPI Hypertension (Chronic) I10 -Holding Bumex due to SRINIVAS con atenolol Migraine (Chronic) G43.909 -No active issues, on Sumatriptan as outpt Personality disorder (Chronic) F60.9 Polypharmacy (Chronic) Z79.899 -Reports she has home health aide that helps with meds, suggest pharmacy do adequate med rec and consolidate classes where able. -Holding all supplements and vitamins -Holding Estradiol Psychosocial impairment (Chronic) Z65.9 lives alone, has home health aid who comes periodically. Has not taken her meds in days for unknown reason and now seems lost on how to take them which is one of the reasons why she came to the ED Current Medications: Current Medications Atenolol (Tenormin Tab*) 25 mg PO DAILY [facility] Last Admin: 03/23/19 08:09 Dose: 25 mg Atorvastatin Calcium (Lipitor*) 5 mg PO BEDTIME [facility] Last Admin: 03/22/19 22:47 Dose: 5 mg Azelastine HCl (Astepro 0.15% Nasal (Nf)) 2 spray BOTH NARES BID [facility] Last Admin: 03/23/19 08:10 Dose: Not Given Baclofen (Lioresal Tab*) 20 mg PO QID PRN PRN Reason: PAIN Last Admin: 03/23/19 05:26 Dose: 20 mg Cetirizine HCl (Zyrtec*) 10 mg PO BEDTIME [facility] Last Admin: 03/22/19 22:48 Dose: 10 mg Clobetasol Propionate (Clobetasol 0.05% Oint*) 1 applic TOPICAL BID PRN PRN Reason: RASH Dextrose (D50w Syringe 50 Ml*) 12.5 gm IV PUSH .FOR FS < 60 - SS PRN PRN Reason: FS < 60 Heparin Sodium (Porcine) (Heparin Vial(*)) 5,000 units SUBCUT Q8HR [facility] Last Admin: 03/23/19 05:26 Dose: 5,000 units Hydromorphone HCl (Dilaudid Tab*) 8 mg PO Q4H PRN PRN Reason: PAIN - SEVERE Last Admin: 03/23/19 08:09 Dose: 8 mg Hydroxyzine HCl (Atarax Tab*) 10 mg PO Q4H PRN PRN Reason: itching Last Admin: 03/22/19 12:35 Dose: 10 mg Sodium Chloride (Ns 0.9% 1000 Ml) 1,000 mls @ 75 mls/hr IV PER RATE [facility] Last Admin: 03/23/19 03:45 Dose: 75 mls/hr Insulin Glargine (Lantus(*)) 10 units SUBCUT Q24H [facility] Last Admin: 03/23/19 05:26 Dose: 10 units Insulin Human Lispro (Humalog*) 0 units SUBCUT ACHS [facility]; Protocol Last Admin: 03/23/19 08:10 Dose: Not Given Ipratropium [place] (Ipratropium [place]) 1 spray BOTH NARES QID PRN PRN Reason: CONGESTION Ondansetron HCl (Zofran Tab*) 4 mg PO QID PRN PRN Reason: NAUSEA Polyethyl Glycol/Propylene Glycol (Lubricant Eye Drops) 1 drop BOTH EYES Q2H PRN PRN Reason: DRY EYE Last Admin: 03/23/19 08:34 Dose: 1 drop - Review of Systems Constitutional Symptoms: No: Fever Pulmonary: Negative: Cough, Sputum, Hemoptysis Cardiology: Negative: Chest Pain, Shortness of Breath, Palpitations Gastroenterology: Positive: Abdominal Pain, Constipation Negative: Nausea, Vomiting Home Medications: Home Medications Medication Instructions Recorded Confirmed Type Dexlansoprazole (NF) [Dexilant 60 mg PO DAILY 07/29/14 03/21/19 History (NF)] Linaclotide (NF) [Linzess (NF)] 290 mcg PO QAM 07/29/14 03/21/19 History Ondansetron TAB* [Zofran 4 MG Tab*] 4 mg SL QID PRN 07/29/14 03/21/19 History LevoCETirizine TAB (NF) [Xyzal TAB 5 mg PO DAILY 01/27/15 03/21/19 History (NF)] Azelastine 0.15% NASAL(NF) 2 spray BOTH NARES BID 03/02/15 03/21/19 History [Astepro 0.15% NASAL (NF)] Ipratropium Br (Nf)0.03% Nasal 1 spray BOTH NARES QID PRN 01/17/17 03/21/19 History [Ipratropium [place]] Alpha Lipoic Acid 200 mg PO BID 05/21/17 03/21/19 History SUMAtriptan TAB* [Imitrex TAB*] 100 mg PO DAILY PRN 05/21/17 03/21/19 History Ascorbic Acid TAB* [Vitamin C 100 mg PO BID 05/31/17 03/21/19 History TAB*] Atorvastatin* [Lipitor 10 MG*] 5 mg PO BEDTIME 08/10/17 03/21/19 History Baclofen TAB* [Lioresal TAB*] 20 mg PO QID PRN 08/10/17 03/21/19 History Clobetasol 0.05% OINT* 1 applic TOPICAL BID PRN 08/10/17 03/21/19 History Metronidazole (TOPICAL)(NF) 1 applic TOPICAL BID PRN 08/10/17 03/21/19 History [Metrocream (NF)] SUMAtriptan SQ* [Imitrex SQ*] 0.5 ml SUBCUT DAILY PRN 08/10/17 03/21/19 History Atenolol TAB* [Tenormin TAB* 25 MG] 25 mg PO DAILY #30 tab 10/30/18 03/21/19 Rx Insulin Degludec/Liraglutide 50 units SUBCUT BEDTIME 12/10/18 03/21/19 History [Xultophy 100 Unit-3.6MG/ml Pen 3 ml x 5 Pens] Potassium Chlor TAB* [Klor Con ER 10 meq PO BID tab.er 12/16/18 03/21/19 Rx TAB 10 MEQ*] Estradiol (NF) 0.5 mg PO DAILY 01/29/19 03/21/19 History HYDROmorphone TAB* [Dilaudid Tab*] 8 mg PO Q4H PRN 01/29/19 03/21/19 History Bumetanide TAB* [Bumex 2 MG TAB*] 2 mg PO 0900,1800 tab 02/03/19 03/21/19 Rx Brimonidine Tartrate [Mirvaso] 1 applic TOPICAL ONCE PRN 03/21/19 03/21/19 History Clotrimazole 1% CREAM* 1 applic TOPICAL BID 03/21/19 03/21/19 History [Clotrimazole 1%*] Empagliflozin [Jardiance] 10 mg PO DAILY 03/21/19 03/21/19 History Insulin ASPART (NF) [Novolog 100 20 units SUBCUT BID 03/21/19 03/21/19 History units/ml 10 ml VIAL (NF)] metFORMIN* [Glucophage 500 MG TAB 1,000 mg PO BID 03/21/19 03/21/19 History *] Allergies: Allergies Allergy/AdvReac Type Severity Reaction Status Date / Time methylparaben Allergy Intermediate Pain Verified 12/10/18 02:18 morphine Allergy Intermediate Hallucinati Verified 12/10/18 02:18 ons tizanidine Allergy Intermediate Swelling Verified 12/10/18 02:18 Of Face,Lips,& Throat Tricyclic Compounds Allergy Intermediate Altered Verified 12/10/18 02:18 Mental Status diphenhydramine Allergy Mild See Comment Verified 12/12/18 22:03 hydromorphone Allergy Mild See Comment Verified 12/10/18 02:18 itraconazole Allergy Mild Rash Verified 12/10/18 02:18 lanolin Allergy Mild Rash Verified 12/10/18 02:18 milnacipran Allergy Mild Rash And Verified 12/10/18 02:18 Itching mometasone furoate Allergy Mild Headache Verified 12/10/18 02:18 naloxone Allergy Mild Headache Verified 12/10/18 02:18 ondansetron Allergy Mild Headache Verified 12/10/18 02:18 oxycodone Allergy Mild Palpitation Verified 12/10/18 02:18 s oxymorphone Allergy Mild Palpitation Verified 12/10/18 02:18 s Penicillins Allergy Mild Rash Verified 12/10/18 02:18 pentazocine Allergy Mild Palpitation Verified 12/10/18 02:18 s propoxyphene Allergy Mild Rash Verified 12/10/18 02:18 sulfasalazine Allergy Mild Rash Verified 12/10/18 02:18 talc Allergy Mild Rash Verified 12/10/18 02:18 tramadol Allergy Mild Muscle Ache Verified 12/10/18 02:18 trazodone Allergy Mild Insomnia Verified 12/10/18 02:18 Adhesive Tape Allergy Unknown Unknown Verified 12/10/18 02:18 Reaction Details alprazolam Allergy Unknown Unknown Verified 12/10/18 02:18 Reaction Details aspirin Allergy Unknown Unknown Verified 12/10/18 02:18 Reaction Details cefaclor Allergy Unknown Unknown Verified 12/10/18 02:18 Reaction Details clarithromycin Allergy Unknown Unknown Verified 12/10/18 02:18 Reaction Details codeine Allergy Unknown Unknown Verified 12/10/18 02:18 Reaction Details diazepam Allergy Unknown Unknown Verified 12/10/18 02:18 Reaction Details doxycycline Allergy Unknown Unknown Verified 12/10/18 02:18 Reaction Details duloxetine Allergy Unknown Unknown Verified 12/10/18 02:18 Reaction Details fentanyl Allergy Unknown See Comment Verified 12/10/18 02:18 fluoxetine Allergy Unknown Unknown Verified 12/10/18 02:18 Reaction Details gabapentin Allergy Unknown See Comment Verified 12/10/18 02:18 hydroxychloroquine Allergy Unknown Unknown Verified 12/10/18 02:18 Reaction Details paroxetine Allergy Unknown Unknown Verified 12/10/18 02:18 Reaction Details acetaminophen Allergy Unknown Verified 03/21/19 13:56 [From Darvocet-N] Reaction Details adhesive Allergy Blisters Verified 12/10/18 02:18 amitriptyline [From Elavil] Allergy Unknown Verified 03/21/19 13:56 Reaction Details apple Allergy Anaphylatic Verified 12/10/18 02:18 Shock black pepper Allergy Hives/Diff. Verified 12/10/18 02:18 Breathing/I tching Bleach (Sodium Hypochlorite) Allergy Unknown Verified 12/10/18 02:18 Reaction Details capsaicin Allergy Unknown Verified 12/10/18 02:18 Reaction Details cigarette smoke Allergy Difficulty Verified 12/10/18 02:18 Breathing Corticosteroids Allergy Unknown Verified 12/10/18 02:18 (Glucocorticoids) Reaction Details desipramine [From Norpramin] Allergy Unknown Verified 03/21/19 14:01 Reaction Details doxepin Allergy Unknown Verified 03/21/19 13:54 Reaction Details ibuprofen [From Motrin] Allergy Unknown Verified 03/21/19 13:56 Reaction Details melon Allergy Anaphylatic Verified 12/10/18 02:18 Shock methylprednisolone Allergy Unknown Verified 03/21/19 13:56 [From Medrol] Reaction Details mupirocin Allergy Unknown Verified 12/10/18 02:18 Reaction Details NSAIDS (Non-Steroidal Allergy Unknown Verified 12/10/18 02:18 Anti-Inflamma Reaction Details onion Allergy Hives/Diff. Verified 12/10/18 02:18 Breathing/I tching pepper (genus Capsicum) Allergy Unknown Verified 12/10/18 02:18 Reaction Details piroxicam [From Feldene] Allergy Unknown Verified 03/21/19 13:56 Reaction Details tapentadol [From Nucynta] Allergy Unknown Verified 12/10/18 02:18 Reaction Details lettuce AdvReac Stomach Verified 12/10/18 02:18 Cramps VINEGAR Allergy Intermediate TROUBLE Uncoded 12/10/18 02:18 BREATHING ENVRIONMENTAL Allergy Mild Sneezing Uncoded 12/10/18 02:18 BANDAIDS AdvReac Mild Blisters Uncoded 12/10/18 02:18 Objective - Vital Signs Vital Signs: Vital Signs 03/22/19 03/22/19 03/22/19 12:23 12:35 14:36 Temperature Pulse Rate Respiratory 18 18 18 Rate Blood Pressure (mmHg) O2 Sat by Pulse Oximetry 03/22/19 03/22/19 03/22/19 15:15 19:15 20:00 Temperature 98.4 F 97.9 F Pulse Rate 83 72 Respiratory 18 16 20 Rate Blood Pressure 118/64 101/53 (mmHg) O2 Sat by Pulse 95 100 Oximetry 03/22/19 03/22/19 03/23/19 22:47 23:15 01:00 Temperature 98 F Pulse Rate 62 Respiratory 20 19 20 Rate Blood Pressure 107/43 (mmHg) O2 Sat by Pulse 97 Oximetry 03/23/19 03/23/19 03/23/19 03:15 03:43 06:57 Temperature 97.8 F Pulse Rate 64 Respiratory 20 20 18 Rate Blood Pressure 121/50 (mmHg) O2 Sat by Pulse 99 Oximetry 03/23/19 03/23/19 03/23/19 07:15 08:00 08:09 Temperature 97.9 F Pulse Rate 68 Respiratory 18 20 20 Rate Blood Pressure 117/59 (mmHg) O2 Sat by Pulse 98 Oximetry - Intake and Output Intake and Output: Intake & Output 03/20/19 03/21/19 03/22/19 03/23/19 11:59 11:59 11:59 11:59 Intake Total 1231 1780 Balance 1231 1780 Weight 142 lb 6.4 oz Intake: IV Fluids 271 1060 NS (0.9%) 271 1060 Oral 960 720 Other: Estimated Void Medium Medium # Bowel Movements 0 Estimated Stool Amount Medium # Voids 2 1 ADLs: Meal Record Start: 03/21/19 23: 49 Freq: DAILY@0900,1400,1800 Status: Active Protocol: Created 03/21/19 23:49 System (Rec: 03/21/19 23:49 System [id number]) Document 03/22/19 09:00 [id number] (Rec: 03/22/19 09:29 [id number] MED-C09) Document 03/22/19 13:51 [id number] (Rec: 03/22/19 13:51 [id number] MED-C02) Document 03/22/19 18:00 [id number] (Rec: 03/23/19 00:02 [id number] TELE-M19) Document 03/23/19 09:00 [id number] (Rec: 03/23/19 09:49 [id number] MED-C13) Intake and Output Start: 03/21/19 13: 27 Freq: Status: Active Protocol: Created 03/21/19 13:27 System (Rec: 03/21/19 13:27 System ED-C29) Intake and Output Start: 03/21/19 23: 49 Freq: DAILY@0600,1400,2200 Status: Active Protocol: Created 03/21/19 23:49 System (Rec: 03/21/19 23:49 System CRM-C09) Document 03/22/19 06:00 [id number] (Rec: 03/22/19 06:40 [id number] MED-C07) Document 03/22/19 13:51 [id number] (Rec: 03/22/19 13:51 [id number] MED-C02) Document 03/22/19 21:53 [id number] (Rec: 03/22/19 21:54 [id number] MED-C07) Document 03/23/19 04:49 [id number] (Rec: 03/23/19 04:50 [id number] MED-C26) - Physical Exam General Physical Exam Comment: Warm and well perfused, in no acute distress. No abnormal movements General: No Cyanosis, No Anemia, No Jaundice, No Clubbing Eye Exam: bilateral: EOMI - normal Skin: Abnormal: Rash - from bedsheets on her arms Lungs and Chest: Yes: Chest Expansion Full, Chest Expansion Symetrica, Percussion Note Resonant, Vessicular Breath Sounds. No: Crackles, Wheezes, Respiratory Distress, Use of Accessory Muscles Heart Rate and Rhythm: Regular Additional Cardiovascular: Yes: Normal Heart Sounds, Pedal Edema - left ankle swollen - wearning support hose. No: Heart Murmur Abdominal Exam: Yes: Soft, Abdominal Tenderness - Left lower quadrant, Bowel Sounds Present. No: Distention, Abdominal Mass, Hepatomegaly, Guarding, Rebound Tenderness - Extremities Cranial Nerves II-XII Intact: Yes Limbs: Normal Power, Normal Tone - Neuro Orientation: A/O x3 Psychiatric: Anxious, Depressed Speech: Normal Results - Results Lab Results: Laboratory Results - last 24 hr 03/22/19 03/22/19 03/22/19 08:11 11:49 16:11 Sodium 134 L Potassium 4.2 Chloride 96 L Carbon Dioxide 25 Anion Gap 13 H BUN 21 Creatinine 1.07 H Est GFR ( Amer) 61.3 Est GFR (Non-Af Amer) 50.7 BUN/Creatinine Ratio 19.6 Glucose 138 H POC Glucose (mg/dL) 233 H 259 H Calcium 9.2 Phosphorus 4.4 Magnesium 2.2 Total Bilirubin 1.10 H AST 27 ALT 19 Alkaline Phosphatase 102 C-Reactive Protein 3.17 Total Protein 6.7 Albumin 3.7 Globulin 3.0 Albumin/Globulin Ratio 1.2 TSH 0.77 03/22/19 03/23/19 20:58 07:35 Sodium Potassium Chloride Carbon Dioxide Anion Gap BUN Creatinine Est GFR ( Amer) Est GFR (Non-Af Amer) BUN/Creatinine Ratio Glucose POC Glucose (mg/dL) 340 H 112 H Calcium Phosphorus Magnesium Total Bilirubin AST ALT Alkaline Phosphatase C-Reactive Protein Total Protein Albumin Globulin Albumin/Globulin Ratio TSH Radiology Results: Patient Name: JESSICA BROWN Medical Record#: [id number] Ordering Physician: Halie Cary MD Acct.#: [id number] : 1950 Age: 68 Sex: F Location: [address] [place] [address] - MEDICAL Exam Date: 03/22/19 0600 ADM Status: ADM IN Order Information: CT CHEST W/O Accession Number: [id number] CPT: 39882 INDICATION: Hypoxemia COMPARISON: October 26, [address] TECHNIQUE: A CT scan of the chest was performed without intravenous contrast. Contiguous axial sections were obtained from the lung apices through the lung bases. Images were reconstructed in the coronal and sagittal planes. FINDINGS: LUNGS: There is mild biapical predominant centrilobular and paraseptal emphysema. There are a 4 mm right upper lobe and 3 mm left upper lobe pulmonary nodules. There is probable bilateral dependent subsegmental atelectasis. No focal consolidation is observed within the hypoinflated lungs. The central airways are clear. MEDIASTINUM: No lymphadenopathy by size criteria. HEART: The heart is within normal limits in size. No pericardial effusion is present. There are coronary calcifications present. There is calcification in the superior vena cava (known stenosis) THORACIC AORTA: The thoracic aorta is normal in caliber. There is mild calcific plaque present. ABDOMEN: No acute findings are seen on the visualized portion of the upper abdomen. Several collateral vessels are seen in the anterior thoracic and abdominal subcutaneous tissues. The patient is status post cholecystectomy. BONES: No aggressive osseous lesion is identified. There is multilevel spondylosis throughout the imaged echo lumbar spine. IMPRESSION: 1. NO FOCAL AIRSPACE OPACIFICATION. 2. SUBCENTIMETER UPPER LOBE PULMONARY NODULES FOR WHICH CHEST CT IN 12 MONTHS IS RECOMMENDED TO DOCUMENT STABILITY. 3. MILD BIAPICAL PREDOMINANT CENTRILOBULAR AND PARASEPTAL EMPHYSEMA. 4. 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 5. CORONARY ARTERY DISEASE <Electronically signed by Fausto Harvey MD in [place]> 03/22/19 1211 1 of 2 Patient Name: JESSICA BROWN Medical Record#: [id number] Ordering Physician: Carlos Lainez MD Acct.#: [id number] : 1950 Age: 68 Sex: F Location: EMERGENCY DEPARTMENT Exam Date: 03/21/19 1322 ADM Status: PRE ER Order Information: CT ABD/PEL W/O Accession Number: [id number] CPT: 14931 INDICATION: Left flank pain. COMPARISON: 12/08/2018 and 06/07/[address] TECHNIQUE: A CT scan of the abdomen and pelvis was performed without intravenous and without oral contrast. Contiguous axial sections were obtained from the lung bases through the symphysis pubis. Images were reconstructed in the coronal and sagittal planes. FINDINGS: Evaluation limited without contrast. LUNG BASES: The bilateral lower lobe subsegmental atelectasis is likely. No pleural effusion is present. Coronary artery calcifications present. LIVER: The liver is normal in size. No significant focal abnormality is seen on this noncontrast study. GALLBLADDER: The patient is status post cholecystectomy. BILE DUCTS: No intra or extrahepatic ductal distention is seen. SPLEEN: The spleen is normal in size without significant focal abnormality. PANCREAS: The pancreas is normal in size. No ductal distention or calcifications are seen. ADRENAL GLANDS: The adrenal glands are normal in size. KIDNEYS: The kidneys are normal in size. A subcentimeter cyst in the superior pole left kidney is incompletely characterized (similar in size on comparison imaging). No renal calculi or hydronephrosis is seen. AORTA/VESSELS: The atheromatous abdominal aorta is normal in caliber. The tortuous azygos vein is redemonstrated. Several prominent collateral vessels in the anterior abdominal wall are redemonstrated communicating with the common femoral veins. LYMPH NODES: A 1.5 x 0.8 cm probable mesenteric lymph node annotated on axial image 53 is grossly from 2016. BOWEL: The stomach, small and large bowel appear nondistended. The appendix is not well visualized. There is no evidence for inflammatory change in the right lower quadrant. Postoperative changes related to a prior partial colectomy. An anastomosis near the rectosigmoid junction appears patent. PELVIC ORGANS: No bladder wall thickening is seen. The patient is status post hysterectomy. The adnexa are unremarkable by CT PERITONEUM: No free intraperitoneal air or fluid is seen. BONES: No aggressive osseous lesion is identified. There is advanced multilevel degenerative disc disease. A probable L5 bone island is unchanged 2016. [facility] Patient Name:JESSICA BROWN MR: [id number] : 1950 IMPRESSION: 1. NO CLEAR ETIOLOGY FOR THE PATIENT'S SYMPTOMS. SPECIFICALLY, NO NEPHROLITHIASIS OR HYDRONEPHROSIS. 2. POSTOPERATIVE CHANGES ABOVE. 3. CORONARY ARTERY DISEASE. <Electronically signed by Fausto Harvey MD in [place]> 03/21/19 1428 Dictated By: Fausto Harvey MD Dictated Date/Time: 03/21/191407 Transcribed Date/Time: 03/21/191407 Copy to: CC:Anila Saul MD; Carlos Lainez MD Imaging - [facility] - [place] [facility] [place] [facility] [address] [place] [address] ph ([phone]) ph ([phone]) ph ([phone]) Patient Name: JESSICA BROWN Medical Record#: [id number] Ordering Physician: Carlos Lainez MD Acct.#: [id number] : 1950 Age: 68 Sex: F Location: EMERGENCY DEPARTMENT Exam Date: 03/21/191754 ADM Status: REG ER Order Information: CT BRAIN WO Accession Number: [id number] CPT: 43006 PROCEDURE INFORMATION: Exam: CT Head Without Contrast Exam date and time: 03/21/2019 6:13 PM Age: 68 years old Clinical indication: Altered mental status/memory loss; Additional info: AMS TECHNIQUE: Imaging protocol: Computed tomography of the head without contrast. Radiation optimization: All CT scans at this facility use at least one of these dose optimization techniques: automated exposure control; mA and/or kV adjustment per patient size (includes targeted exams where dose is matched to clinical indication); or iterative reconstruction. COMPARISON: BRAIN WO CT BRAIN WO 01/29/2019 2:02 AM FINDINGS: Limitations: Image quality is degraded by motion artifact. Brain: A CSF density extra-axial collection again overlies the posterior left parietal lobe measuring 5.5 x 2.0 cm, similar to prior study. No acute hemorrhage or midline shift. Normal montilla-white differentiation. Bilateral punctate basal ganglia calcifications. Ventricles: Normal configuration. No hydrocephalus. Bones/joints: No acute fracture. Sinuses: Mucosal thickening is present in the ethmoid sinuses. No air-fluid levels. Mastoid air cells: No mastoid effusion. Soft tissues: Resolution of right periorbital skin contusion and decreased size of bilobed right pre maxillary hematoma measuring approximately 1.7 x 0.6 cm, decreased from 2.1 by 1.0 cm. IMPRESSION: 1.No acute intracranial findings or change in appearance of the brain since prior study. 2. Stable left posterior extra-axial CSF density collection, possibly an arachnoid cyst. 3. Resolution of right periorbital skin contusion and decreased size of right pre zygomatic hematoma. 4. Study limited by motion. Dictated and Authenticated by: Lin Caballero MD 03/21/2019 7:15 PM Eastern Time ([place] and [place]) To contact [facility] with a general question: Operations Center - [phone] For direct physician to physician contact: Physician Hotline - [phone] [facility] ([facility] Facility ID #[id number]) <Electronically signed by Lin Caballero MD in OV> 03/21/191914 Patient Name: JESSICA BROWN Medical Record#: [id number] Ordering Physician: Carlos Lainez MD Acct.#: [id number] : 1950 Age: 68 Sex: F Location: [address] [place] [address] MEDICAL Exam Date: 03/21/191838 ADM Status: ADM IN Order Information: CHEST AP/PORT Accession Number: [id number] CPT: 01292 INDICATION: Pain COMPARISON: January 30, 2019 chest radiograph TECHNIQUE: A portable view of the chest was obtained. FINDINGS: Overlying leads obscure the [id number] The lungs are clear. There is no pleural effusion. The cardiomediastinal silhouette is within normal limits. The upper abdominal contents are normal. Osseous structures are unremarkable. IMPRESSION: No acute pulmonary process by radiograph. R0 Preliminary Imaging Read R0 <Electronically signed by Fausto Harvey MD in OV> 03/22/19734 Dictated By: Fausto Harvey MD Dictated Date/Time: 03/22/19732 Transcribed Date/Time: 03/22/19732 Copy to: CC:Anila Saul MD; Halie Cary MD; Carlos Lainez MD Imaging - [facility] - [place] [facility] [address] [place] [address] Assessment - Problem List Assessment: Patient Problems Constipation (Acute) Hypoxemia (Acute) Non compliance w medication regimen (Acute) Opioid dependence (Acute) Restlessness and agitation (Acute) Arthritis (Chronic) DVT prophylaxis (Chronic) Diabetes mellitus (Chronic) Diverticulosis (Chronic) Fibromyalgia (Chronic) Full code status (Chronic) GERD (gastroesophageal reflux disease) (Chronic) Hypertension (Chronic) Migraine (Chronic) Personality disorder (Chronic) Polypharmacy (Chronic) Psychosocial impairment (Chronic) Plan: Non compliance w medication regimen (Acute) Restlessness and agitation (Acute) Opioid dependence (Acute) She did not take her usual medications for several days prior to admission. She had abnormal movements. These have resolved with reinstatement of her medication. She is back to baseline. We need to figure out why she stopped her medication - this may be psychiatric and not physical. She states she couldn't take her insulin due abnormal movements of her hands. However, this doesn't explain why she wasn't taking her oral medication. She is fully alert and oriented. There appears to be no other underlying reason for this physically. Maybe this was her way of trying to summon help for her chronic psycho-social issues. Comorbidities: Constipation (Acute) I will prescribe milk of magnesia Hypoxemia (Acute) She has no respiratory distress Type 2 diabetes - controlled. Secondary diagnoses: Arthritis (Chronic) DVT prophylaxis (Chronic) Diverticulosis (Chronic) Fibromyalgia (Chronic) Full code status (Chronic) GERD (gastroesophageal reflux disease) (Chronic) Hypertension (Chronic) Migraine (Chronic) Personality disorder (Chronic) Polypharmacy (Chronic) Psychosocial impairment (Chronic) She is improving. We will mobilize her today and I think she will be ready for discharge tomorrow.
[2019-03-23] MEDS: Magnesium Hydroxide LIQ* 30 ML UDC PO SCH ×2 (12:53→21:07)
[2019-03-23] MEDS: Cetirizine* 10 MG TAB PO SCH (21:06)
[2019-03-23] MEDS: Atorvastatin* 10 MG TAB PO SCH (21:06)
[2019-03-24] MEDS: Baclofen TAB* 20 MG PO PRN ×4 (02:10→20:30)
[2019-03-24] MEDS: HYDROmorphone TAB* 4 MG PO PRN ×4 (02:10→19:55)
[2019-03-24] MEDS: hydrOXYzine HCL TAB* 10 MG PO PRN (02:45)
[2019-03-24] MEDS: Insulin GLARGINE(*) 1 UNITS UNIT SUBCUT SCH (05:46)
[2019-03-24] MEDS: Heparin VIAL(*) 5000 UNITS/ML VIAL (FIVE THOUSAND) SUBCUT SCH ×3 (05:47→20:29)
[2019-03-24] MEDS: Insulin LISPRO* 1 UNITS UNIT SUBCUT SCH ×4 (08:44→20:29)
[2019-03-24] MEDS: Atenolol TAB* 25 MG PO SCH (08:45)
[2019-03-24] MEDS: Polyethyl Glycol/Propylene Gly OPHTH.SOLN BOTH EYES PRN (08:45)
[2019-03-24] MEDS: Magnesium Hydroxide LIQ* 30 ML UDC PO SCH ×2 (08:45→19:57)
[2019-03-24] MEDS: Azelastine 0.15% NASAL(NF) 30 ML BTL BOTH NARES SCH ×2 (08:47→19:53)
[2019-03-24] MEDS ORDERED: SUMAtriptan SQ* 6 MG/0.5 ML VIAL SUBCUT ONE (09:46)
[2019-03-24] MEDS: metFORMIN* 500 MG TAB PO SCH ×2 (10:31→19:56)
[2019-03-24] MEDS: Atorvastatin* 10 MG TAB PO SCH (19:57)
[2019-03-24] MEDS: Cetirizine* 10 MG TAB PO SCH (19:57)
[2019-03-25] MEDS: HYDROmorphone TAB* 4 MG PO PRN ×3 (00:21→08:55)
[2019-03-25] MEDS: hydrOXYzine HCL TAB* 10 MG PO PRN (00:24)
[2019-03-25] MEDS: Baclofen TAB* 20 MG PO PRN ×2 (02:09→08:33)
[2019-03-25] MEDS: Insulin GLARGINE(*) 1 UNITS UNIT SUBCUT SCH (05:29)
[2019-03-25] MEDS: Heparin VIAL(*) 5000 UNITS/ML VIAL (FIVE THOUSAND) SUBCUT SCH (05:29)
[2019-03-25 07:35] VITALS: BP 115/55
[2019-03-25] MEDS ORDERED: SUMAtriptan SQ* 6 MG/0.5 ML VIAL SUBCUT PRN (08:14)
[2019-03-25] MEDS: Magnesium Hydroxide LIQ* 30 ML UDC PO SCH (08:23)
[2019-03-25] MEDS: metFORMIN* 500 MG TAB PO SCH (08:23)
[2019-03-25] MEDS: Azelastine 0.15% NASAL(NF) 30 ML BTL BOTH NARES SCH (08:24)
[2019-03-25] MEDS: Atenolol TAB* 25 MG PO SCH (08:24)
[2019-03-25] MEDS: Insulin LISPRO* 1 UNITS UNIT SUBCUT SCH ×2 (08:30→12:47)
--- NOTE | 2019-03-25 12:09 | DS ---
Amended report to correct date of discharge. CC: Dr. Jared Henderson; Dr. Kaiden Duncan * DISCHARGE SUMMARY: DATE OF ADMISSION: 03/21/19 DATE OF DISCHARGE: 03/25/19 DISCHARGE DIAGNOSES: 1. Drug withdrawal. 2. Left flank pain due to trauma with ecchymosis. 3. Chronic pain, on opioids. 4. Type 2 diabetes mellitus with hyperglycemia. 5. Fibromyalgia. 6. History of gastroesophageal reflux disease. 7. History of hypertension. 8. Polypharmacy. 9. Acute kidney injury. 10. Migraine headache. 11. Status post fall. 12. Opioid-induced constipation. 13. History of allergic conjunctivitis and rhinitis. 14. Diabetic neuropathy. 15. Undefined autoimmune disease. 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 17. History of adverse reaction to Xultophy. 18. CT scan of the chest significant for pulmonary nodules, emphysema, superior vena cava syndrome, and coronary artery disease. 19. History of elevated vitamin D level, resolved. 20. Non-compliance with medication regimen. HISTORY: Keila Brown is a 68-year-old woman admitted with pain in the left flank, restlessness, fluctuating oxygen saturations. She was noted to have acute kidney injury. Please see the dictated admission note for details of the present illness, past medical history, family history, social and personal history, review of systems, and physical examination. LABORATORY: CBC on admission: White count 11, H and H 15.9/47, MCV 93, PLT 243 ,000. CBC on 03/22/19: WBC 13.1, H and H 15.7/45, MCV 93, PLT 223,000. INR 1.04. ABGs: PH 7.53, pCO2 of 34, pO2 of 68; not clear if this was on room air or not. Chemistries on admission: Sodium 133, potassium 4.3, chloride 94, CO2 of 29, BUN and creatinine 22/1.48. Glucose 464. Comprehensive metabolic panel is within normal limits except for alk phos slightly elevated at 116. Repeat CMP on 03/22/19: Sodium 134, potassium 4.2, chloride 96, CO2 of 25, BUN and creatinine 21/1.07. Rest of the comprehensive metabolic panel abnormal for bilirubin slightly elevated at 1.10. Rest of the comprehensive metabolic panel was normal. TSH was normal at 0.77. CRPs were normal. Troponin was normal. Blood sugar was greater than 444 on admission. [id number] glucoses after that ranged from 112 to 340. Fingerstick blood sugars on the day prior to discharge were 165, 225, 262, 243, was 192 on the morning of discharge. Urinalysis: Yellow, clear. Specific gravity 1.022. PH 7, dipsticks negative except for 3+ glucose. Urine tox screen was positive for opiates, otherwise negative. IMAGING: Brain CT showed no acute disease. Chest x-ray was clear. Chest CT showed no abnormalities except for some subcentimeter upper lobe pulmonary nodules, for which CT in 12 months was recommended to document stability. Mild biapical predominant centrilobular and paraseptal emphysema was noted. 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 CAD was also noted. HOSPITAL COURSE: The patient was restarted on her usual medications. She was full code. DVT prophylaxis was instated. She had abnormal movements on . She reported that she had called the ambulance because her head was buzzing , said abnormal movements started after the ambulance was called. On that day, she had mild lower abdominal tenderness. On exam, she had erythematous maculopapular rash in the upper extremities and back. It was felt that the rash was due to the detergent in the bed linens. As her medications were resumed, her symptoms improved. By 03/23/19, her abnormal movements had resolved. On 03/24/19, it was noted that the pain in her left flank was due to a large ecchymosis there. She had fallen. It was being treated symptomatically. Her blood sugars were followed. It was felt that we could resume metformin as the previous nausea and vomiting had been due to Xultophy, which had been discontinued. She had a migraine, requested sumatriptan, which was given. On 03/25/19, it was noted that she had refused to get up with physical therapy the day previous, but she had walked independently. She had a migraine, for which she is getting sumatriptan. 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 She said she had not been taking her medications because she was so tired due to chronic insomnia. She said she had previously taken sleeping pills, does not remember what they were, thinks that would help her. PHYSICAL EXAMINATION: Vital Signs: Blood pressure 115/55, pulse 68, respirations 16, temperature 98.4, O2 sat 94%. She was sitting up, alert, oriented, eating breakfast. Chest was clear. Heart was regular. Extremities without calf tenderness or edema. It was felt that she could go home. At the time of discharge, she should have activity as tolerated. DISCHARGE MEDICATIONS: Medications to be as follows: 1. Ondansetron 4 mg sublingual 4 times a day p.r.n.. 2. Dexilant 60 mg daily. 3. Linzess 290 mg daily. 4. Levocetirizine 5 mg daily. 5. Ipratropium nasal spray 4 times a day as needed. 6. Sumatriptan 100 mg daily as needed. 7. Alpha-lipoic acid 200 mg twice a day. 8. Baclofen 20 mg 4 times a day as needed. 9. Clobetasol ointment as needed. 10. Metronidazole cream as needed. 11. Sumatriptan 0.5 mL subcutaneous daily as needed. 12. Atorvastatin 5 mg at bedtime. 13. Atenolol 25 mg daily. 14. Potassium 10 mEq b.i.d. 15. Hydromorphone 8 mg every 4 hours as needed with a maximum daily dose of 6. 16. Estradiol 1 mg daily. 17. Bumetanide 2 mg twice a day. 18. NovoLog 10 to 20 units before meals. 19. Metformin 500 mg twice a day. 20. Jardiance 10 mg daily. 21. Mirvaso cream as needed. 22. Azelastine 2 sprays both nostrils twice a day. 23. Tresiba 40 units daily- told to go down to this dose from 50 units as metfromin being restarted. 24. Milk of magnesia 30 mL twice a day. 25. Metformin 500 mg twice a day. FOLLOWUP: Followup should be with Dr. Anila Saul in 4 to 7 days. Activity as tolerated. She will also be followed by the [facility] diabetes nurse, Sindhu Alexis. I have spoken with her. She is to follow up regarding pain with Dr. Duncan and regarding diabetes with Dr. Henderson as previously scheduled. [id number] #: [id number] [facility]
== END 2019-03-25 12:45 | disposition home health service (06) | DRG 897 ==
LOC: ED 13:00 → MED 22:47
PROVIDERS: ADMIT Student in an Organized Health Care Education/Training Program; ATTEND Internal Medicine Geriatric Medicine
DX: F11.23 Opioid dependence with withdrawal (principal); I87.1 Compression of vein; N17.9 Acute kidney failure, unspecified; J45.909 Unspecified asthma, uncomplicated; K57.90 Diverticulosis of intestine, part unspecified, without perforation or abscess without bleeding; K21.9 Gastro-esophageal reflux disease without esophagitis; G89.29 Other chronic pain; G43.909 Migraine, unspecified, not intractable, without status migrainosus; G35 Multiple sclerosis; M79.7 Fibromyalgia; M54.10 Radiculopathy, site unspecified; E78.00 Pure hypercholesterolemia, unspecified; I10 Essential (primary) hypertension; R09.02 Hypoxemia; K59.00 Constipation, unspecified; E11.40 Type 2 diabetes mellitus with diabetic neuropathy, unspecified; R91.8 Other nonspecific abnormal finding of lung field; I25.10 Atherosclerotic heart disease of native coronary artery without angina pectoris; J43.9 Emphysema, unspecified; F60.9 Personality disorder, unspecified; M19.90 Unspecified osteoarthritis, unspecified site; E11.65 Type 2 diabetes mellitus with hyperglycemia; R21 Rash and other nonspecific skin eruption; Z88.5 Allergy status to narcotic agent; Z88.8 Allergy status to other drugs, medicaments and biological substances; Z88.0 Allergy status to penicillin; Z88.2 Allergy status to sulfonamides; Z88.1 Allergy status to other antibiotic agents; Z87.891 Personal history of nicotine dependence; Z91.14 Patient's other noncompliance with medication regimen; Z65.9 Problem related to unspecified psychosocial circumstances; Z79.84 Long term (current) use of oral hypoglycemic drugs
CPT/HCPCS: 36415; 70450; 71045; 71250; 74176; 80053; 80307; 81003; 82803; 83605; 83735; 84100; 84443; 84484; 85025; 85610; 86140; 99285; A9270-GY; G0480; J1644; J3030

== ENCOUNTER 2019-06-04 14:31 | Inpatient (IN) | payer MEDICARE, MEDICAID, OTHER ==
--- OUTSIDE RECORDS SUMMARY | 2019-06-04 14:45 | XMS REPORT ---
:1950 Author Organization [facility] Care Team Providers Name Role Phone Unavailable Unavailable Unavailable Problems This patient has no known problems. Allergies, Adverse Reactions, Alerts Allergy Name Allergy Status Severity Reaction(s) Onset Inactive Treating Comments Type Date Date Clinician methylparabe Base Active Unknown Reaction 2020-0 Interface n Ingredient Unknown 2-03 morphine Base Active Unknown Reaction 2020-0 Unknown Ingredient Unknown 2-03 tizanidine Base Active Unknown Reaction 2020-0 Interface Ingredient Unknown 2-03 Tricyclic Unknown Active Unknown Reaction 2020-0 Interface Compounds Unknown 2-03 diphenhydram Base Active Unknown Reaction 2020-0 Interface ine Ingredient Unknown 2-03 hydromorphon Base Active Unknown Reaction 2020-0 Interface e Ingredient Unknown 2-03 itraconazole Base Active Unknown Reaction 2020-0 Interface Ingredient Unknown 2-03 lanolin Unknown Active Unknown Reaction 2020-0 Interface Unknown 2-03 milnacipran Base Active Unknown Reaction 2020-0 Interface Ingredient Unknown 2-03 mometasone Base Active Unknown Reaction 2020-0 Interface furoate Ingredient Unknown 2-03 naloxone Base Active Unknown Reaction 2020-0 Interface Ingredient Unknown 2-03 ondansetron Base Active Unknown Reaction 2020-0 Interface Ingredient Unknown 2-03 oxycodone Base Active Unknown Reaction 2020-0 Interface Ingredient Unknown 2-03 oxymorphone Base Active Unknown Reaction 2020-0 Interface Ingredient Unknown 2-03 Penicillins Unknown Active Unknown Reaction 2020-0 Interface Unknown 2-03 pentazocine Base Active Unknown Reaction 2020-0 Interface Ingredient Unknown 2-03 propoxyphene Base Active Unknown Reaction 2020-0 Interface Ingredient Unknown 2-03 sulfasalazin Base Active Unknown Reaction 2020-0 Interface e Ingredient Unknown 2-03 talc Base Active Unknown Reaction 2020-0 Unknown Ingredient Unknown 2-03 tramadol Base Active Unknown Reaction 2020-0 Interface Ingredient Unknown 2-03 trazodone Base Active Unknown Reaction 2020-0 Interface Ingredient Unknown 2-03 Adhesive Unknown Active Unknown Reaction 2020-0 Interface Tape Unknown 2-03 alprazolam Base Active Unknown Reaction 2020-0 Interface Ingredient Unknown 2-03 aspirin Base Active Unknown Reaction 2020-0 Interface Ingredient Unknown 2-03 cefaclor Base Active Unknown Reaction 2020-0 Interface Ingredient Unknown 2-03 clarithromyc Base Active Unknown Reaction 2020-0 Interface in Ingredient Unknown 2-03 codeine Base Active Unknown Reaction 2020-0 Interface Ingredient Unknown 2-03 diazepam Base Active Unknown Reaction 2020-0 Interface Ingredient Unknown 2-03 doxycycline Base Active Unknown Reaction 2020-0 Interface Ingredient Unknown 2-03 duloxetine Base Active Unknown Reaction 2020-0 Interface Ingredient Unknown 2-03 fentanyl Base Active Unknown Reaction 2020-0 Interface Ingredient Unknown 2-03 fluoxetine Base Active Unknown Reaction 2020-0 Interface Ingredient Unknown 2-03 gabapentin Base Active Unknown Reaction 2020-0 Interface Ingredient Unknown 2-03 hydroxychlor Base Active Unknown Reaction 2020-0 Interface o[place]ine Ingredient Unknown 2-03 paroxetine Base Active Unknown Reaction 2020-0 Interface Ingredient Unknown 2-03 acetaminophe Base Active Unknown Reaction 2020-0 Interface n Ingredient Unknown 2-03 adhesive Unknown Active Unknown Reaction 2020-0 Interface Unknown 2-03 amitriptylin Base Active Unknown Reaction 2020-0 Interface e Ingredient Unknown 2-03 apple Unknown Active Unknown Reaction 2020-0 Interface Unknown 2-03 black pepper Unknown Active Unknown Reaction 2020-0 Interface Unknown 2-03 Bleach Unknown Active Unknown Reaction 2020-0 Interface (Sodium Unknown 2-03 Hypochlorite ) capsaicin Base Active Unknown Reaction 2020-0 Interface Ingredient Unknown 2-03 cigarette Unknown Active Unknown Reaction 2020-0 Interface smoke Unknown 2-03 Corticostero Unknown Active Unknown Reaction 2020-0 Interface ids Unknown 2-03 (Glucocortic oids) desipramine Base Active Unknown Reaction 2020-0 Interface Ingredient Unknown 2-03 doxepin Base Active Unknown Reaction 2020-0 Interface Ingredient Unknown 2-03 ibuprofen Base Active Unknown Reaction 2020-0 Interface Ingredient Unknown 2-03 melon Base Active Unknown Reaction 2020-0 Interface Ingredient Unknown 2-03 methylpredni Base Active Unknown Reaction 2020-0 Interface solone Ingredient Unknown 2-03 mupirocin Base Active Unknown Reaction 2020-0 Interface Ingredient Unknown 2-03 NSAIDS Unknown Active Unknown Reaction 2020-0 Interface (Non-Steroid Unknown 2-03 al Anti-Inflamm a onion Unknown Active Unknown Reaction 2020-0 Interface Unknown 2-03 pepper Base Active Unknown Reaction 2020-0 Interface (genus Ingredient Unknown 2-03 Capsicum) piroxicam Base Active Unknown Reaction 2020-0 Interface Ingredient Unknown 03-24 tapentadol Base Active Unknown Reaction Interface Ingredient Unknown 03-24 lettuce Base Active Unknown Reaction Interface Ingredient Unknown 03-24 VINEGAR Unknown Active Unknown Reaction Interface Unknown 03-24 ENVRIONMENTA Unknown Active Unknown Reaction Interface L Unknown 03-24 BANDAIDS Unknown Active Unknown Reaction Interface Unknown 03-24 Medications Ordered Filled Start Stop Current Ordering Indication Dosage Frequency Signature Comments Components Medication Medication Date Date Medication? Clinician (SIG) Name Name Dexlansopra Dexlansopra No Unknown Unknown Unknown zole (Nf) zole (Nf) 07-29 Linaclotide Linaclotide No Unknown Unknown Unknown (Nf) (Nf) 610 Ondansetron Ondansetron No Unknown Unknown Unknown Tab* Tab* 6-10 levocetiriz levocetiriz 2014-02 No Unknown Unknown Unknown ine 5 mg ine 5 mg 2- tablet tablet Azelastine Azelastine No Unknown Unknown Unknown 0.15% 0.15% -12 Nasal(Nf) Nasal(Nf) Procedures This patient has no known procedures. Results This patient has no known results.
--- OUTSIDE RECORDS SUMMARY | 2019-06-04 14:45 | XMS REPORT ---
:1950 Author Organization [facility] Care Team Providers Name Role Phone Unavailable [...]
--- OUTSIDE RECORDS SUMMARY | 2019-06-04 14:45 | XMS REPORT ---
:1950 Author Organization [facility] Care Team Providers Name Role Phone Unavailable [...]
--- OUTSIDE RECORDS SUMMARY | 2019-06-04 14:45 | XMS REPORT ---
:1950 Author Organization [facility] Care Team Providers Name Role Phone Unavailable [...]
--- OUTSIDE RECORDS SUMMARY | 2019-06-04 14:45 | XMS REPORT ---
:1950 Author Organization [facility] Care Team Providers Name Role Phone Unavailable [...]
--- OUTSIDE RECORDS SUMMARY | 2019-06-04 14:45 | XMS REPORT ---
:1950 Author Organization [facility] Care Team Providers Name Role Phone Unavailable [...] 2-10 ondansetron ondansetron No Unknown Unknown Unknown HCL 4 mg HCL 4 mg 6-10 tablet tablet Dexlansopra Dexlansopra [...]
--- OUTSIDE RECORDS SUMMARY | 2019-06-04 14:45 | XMS REPORT ---
:1950 Author Organization [facility] Care Team Providers Name Role Phone Unavailable [...]
--- OUTSIDE RECORDS SUMMARY | 2019-06-04 14:45 | XMS REPORT ---
:1950 Author Organization [facility] Care Team Providers Name Role Phone Unavailable [...]
--- OUTSIDE RECORDS SUMMARY | 2019-06-04 14:45 | XMS REPORT ---
:1950 Author Organization [facility] Care Team Providers Name Role Phone Unavailable [...]
--- OUTSIDE RECORDS SUMMARY | 2019-06-04 14:45 | XMS REPORT ---
:1950 Author Organization [facility] Care Team Providers Name Role Phone Unavailable [...]
--- OUTSIDE RECORDS SUMMARY | 2019-06-04 14:45 | XMS REPORT ---
:1950 Author Organization [facility] Care Team Providers Name Role Phone Unavailable [...]
--- OUTSIDE RECORDS SUMMARY | 2019-06-04 14:45 | XMS REPORT ---
:1950 Author Organization [facility] Care Team Providers Name Role Phone Unavailable [...]
--- OUTSIDE RECORDS SUMMARY | 2019-06-04 14:45 | XMS REPORT ---
:1950 Author Organization [facility] Care Team Providers Name Role Phone Unavailable [...]
--- OUTSIDE RECORDS SUMMARY | 2019-06-04 14:45 | XMS REPORT ---
:1950 Author Organization [facility] Care Team Providers Name Role Phone Unavailable [...]
--- OUTSIDE RECORDS SUMMARY | 2019-06-04 14:45 | XMS REPORT ---
:1950 Author Organization [facility] Care Team Providers Name Role Phone Unavailable [...]
--- OUTSIDE RECORDS SUMMARY | 2019-06-04 14:45 | XMS REPORT ---
:1950 Author Organization [facility] Care Team Providers Name Role Phone Unavailable [...]
--- OUTSIDE RECORDS SUMMARY | 2019-06-04 14:46 | XMS REPORT ---
:1950 Author Organization [facility] Care Team Providers Name Role Phone Unavailable [...]
--- OUTSIDE RECORDS SUMMARY | 2019-06-04 14:46 | XMS REPORT ---
:1950 Author Organization [facility] Care Team Providers Name Role Phone Unavailable [...]
--- OUTSIDE RECORDS SUMMARY | 2019-06-04 14:46 | XMS REPORT ---
:1950 Author Organization [facility] Care Team Providers Name Role Phone Unavailable [...]
--- OUTSIDE RECORDS SUMMARY | 2019-06-04 14:46 | XMS REPORT ---
:1950 Author Organization [facility] Care Team Providers Name Role Phone Unavailable [...]
--- OUTSIDE RECORDS SUMMARY | 2019-06-04 14:46 | XMS REPORT ---
:1950 Author Organization [facility] Care Team Providers Name Role Phone Unavailable [...]
--- OUTSIDE RECORDS SUMMARY | 2019-06-04 14:46 | XMS REPORT ---
:1950 Author Organization [facility] Care Team Providers Name Role Phone Unavailable [...]
--- OUTSIDE RECORDS SUMMARY | 2019-06-04 14:46 | XMS REPORT ---
:1950 Author Organization [facility] Care Team Providers Name Role Phone Unavailable [...]
--- OUTSIDE RECORDS SUMMARY | 2019-06-04 14:46 | XMS REPORT ---
:1950 Author Organization [facility] Care Team Providers Name Role Phone Unavailable [...]
--- OUTSIDE RECORDS SUMMARY | 2019-06-04 14:46 | XMS REPORT ---
:1950 Author Organization [facility] Care Team Providers Name Role Phone Unavailable [...]
--- NOTE | 2019-06-04 15:44 | ED ---
Upper Extremity Pain - HPI Summary HPI Summary: 68 year old F presenting to [facility] with a chief complaint of bilateral hand pain. Patient reports that she had difficulty moving her right arm 5 days ago and was dizzy 3 days ago. She also reports weakness. The patient rates the pain 8/10 in severity. Patient denies any shortness of breath, fever, chills, chest pain, cough, or runny nose. She did not have any home help over the weekend. The patient has an undiagnosed autoimmune disease. She states that she normally uses her walker to ambulate. Medication list reviewed. Allergy list reviewed. - History of Current Complaint Chief Complaint: EDGeneral Stated Complaint: STROKE LIKE SYMPTOMS PER PT Time Seen by Provider: 06/04/19 15:35 Hx Obtained From: Patient Onset/Duration: Started Days Ago Timing: Constant Severity Currently: Moderate Pain Location: Hand - Bilateral Associated Signs & Symptoms: Positive: Negative - Chills, cough, runny nose, Weakness, Other - Dizziness. Negative: Fever, Chest Pain, SOB - Allergies/Home Medications Allergies/Adverse Reactions: Allergies Allergy/AdvReac Type Severity Reaction Status Date / Time methylparaben Allergy Intermediate Pain Verified 12/10/18 02:18 morphine Allergy Intermediate Hallucinati Verified 12/10/18 02:18 ons tizanidine Allergy Intermediate Swelling Verified 12/10/18 02:18 Of Face,Lips,& Throat Tricyclic Compounds Allergy Intermediate Altered Verified 12/10/18 02:18 Mental Status diphenhydramine Allergy Mild See Comment Verified 12/12/18 22:03 hydromorphone Allergy Mild See Comment Verified 12/10/18 02:18 itraconazole Allergy Mild Rash Verified 12/10/18 02:18 lanolin Allergy Mild Rash Verified 12/10/18 02:18 milnacipran Allergy Mild Rash And Verified 12/10/18 02:18 Itching mometasone furoate Allergy Mild Headache Verified 12/10/18 02:18 naloxone Allergy Mild Headache Verified 12/10/18 02:18 ondansetron Allergy Mild Headache Verified 12/10/18 02:18 oxycodone Allergy Mild Palpitation Verified 12/10/18 02:18 s oxymorphone Allergy Mild Palpitation Verified 12/10/18 02:18 s Penicillins Allergy Mild Rash Verified 12/10/18 02:18 pentazocine Allergy Mild Palpitation Verified 12/10/18 02:18 s propoxyphene Allergy Mild Rash Verified 12/10/18 02:18 sulfasalazine Allergy Mild Rash Verified 12/10/18 02:18 talc Allergy Mild Rash Verified 12/10/18 02:18 tramadol Allergy Mild Muscle Ache Verified 12/10/18 02:18 trazodone Allergy Mild Insomnia Verified 12/10/18 02:18 Adhesive Tape Allergy Unknown Unknown Verified 12/10/18 02:18 Reaction Details alprazolam Allergy Unknown Unknown Verified 12/10/18 02:18 Reaction Details aspirin Allergy Unknown Unknown Verified 12/10/18 02:18 Reaction Details cefaclor Allergy Unknown Unknown Verified 12/10/18 02:18 Reaction Details clarithromycin Allergy Unknown Unknown Verified 12/10/18 02:18 Reaction Details codeine Allergy Unknown Unknown Verified 12/10/18 02:18 Reaction Details diazepam Allergy Unknown Unknown Verified 12/10/18 02:18 Reaction Details doxycycline Allergy Unknown Unknown Verified 12/10/18 02:18 Reaction Details duloxetine Allergy Unknown Unknown Verified 12/10/18 02:18 Reaction Details fentanyl Allergy Unknown See Comment Verified 12/10/18 02:18 fluoxetine Allergy Unknown Unknown Verified 12/10/18 02:18 Reaction Details gabapentin Allergy Unknown See Comment Verified 12/10/18 02:18 hydroxychloroquine Allergy Unknown Unknown Verified 12/10/18 02:18 Reaction Details paroxetine Allergy Unknown Unknown Verified 12/10/18 02:18 Reaction Details acetaminophen Allergy Unknown Verified 03/21/19 13:56 [From Darvocet-N] Reaction Details adhesive Allergy Blisters Verified 12/10/18 02:18 amitriptyline [From Elavil] Allergy Unknown Verified 03/21/19 13:56 Reaction Details apple Allergy Anaphylatic Verified 12/10/18 02:18 Shock black pepper Allergy Hives/Diff. Verified 12/10/18 02:18 Breathing/I tching Bleach (Sodium Hypochlorite) Allergy Unknown Verified 12/10/18 02:18 Reaction Details capsaicin Allergy Unknown Verified 12/10/18 02:18 Reaction Details cigarette smoke Allergy Difficulty Verified 12/10/18 02:18 Breathing Corticosteroids Allergy Unknown Verified 12/10/18 02:18 (Glucocorticoids) Reaction Details desipramine [From Norpramin] Allergy Unknown Verified 03/21/19 14:01 Reaction Details doxepin Allergy Unknown Verified 03/21/19 13:54 Reaction Details ibuprofen [From Motrin] Allergy Unknown Verified 03/21/19 13:56 Reaction Details melon Allergy Anaphylatic Verified 12/10/18 02:18 Shock methylprednisolone Allergy Unknown Verified 03/21/19 13:56 [From Medrol] Reaction Details mupirocin Allergy Unknown Verified 12/10/18 02:18 Reaction Details NSAIDS (Non-Steroidal Allergy Unknown Verified 12/10/18 02:18 Anti-Inflamma Reaction Details onion Allergy Hives/Diff. Verified 12/10/18 02:18 Breathing/I tching pepper (genus Capsicum) Allergy Unknown Verified 12/10/18 02:18 Reaction Details piroxicam [From Feldene] Allergy Unknown Verified 03/21/19 13:56 Reaction Details tapentadol [From Nucynta] Allergy Unknown Verified 12/10/18 02:18 Reaction Details lettuce AdvReac Stomach Verified 12/10/18 02:18 Cramps VINEGAR Allergy Intermediate TROUBLE Uncoded 12/10/18 02:18 BREATHING ENVRIONMENTAL Allergy Mild Sneezing Uncoded 12/10/18 02:18 BANDAIDS AdvReac Mild Blisters Uncoded 12/10/18 02:18 Home Medications: Home Medications Dexlansoprazole (NF) [Dexilant (NF)] 60 mg PO DAILY 07/29/14 [History Confirmed 06/04/19] Linaclotide (NF) [Linzess (NF)] 290 mcg PO QAM 07/29/14 [History Confirmed 06/03] Ondansetron TAB* [Zofran 4 MG Tab*] 4 mg SL Q4HR PRN 07/29/14 [History Confirmed 06/04/19] LevoCETirizine TAB (NF) [Xyzal TAB (NF)] 5 mg PO DAILY 01/27/15 [History Confirmed 06/04/19] Ipratropium Br (Nf)0.03% Nasal [Ipratropium [place]] 1 spray BOTH NARES QID PRN 01/17/17 [History Confirmed 06/04/19] Alpha Lipoic Acid 200 mg PO BID 05/21/17 [History Confirmed 06/04/19] SUMAtriptan TAB* [Imitrex TAB*] 100 mg PO DAILY PRN 05/21/17 [History Confirmed 06/04/19] Atorvastatin* [Lipitor 10 MG*] 5 mg PO BEDTIME 08/10/17 [History Confirmed 06/03] Baclofen TAB* [Lioresal TAB*] 20 mg PO QID PRN 08/10/17 [History Confirmed ] Clobetasol 0.05% OINT* 1 applic TOPICAL BID PRN 08/10/17 [History Confirmed ] Metronidazole (TOPICAL)(NF) [Metrocream (NF)] 1 applic TOPICAL BID PRN 08/10/17 [History Confirmed 06/04/19] SUMAtriptan SQ* [Imitrex SQ*] 0.5 ml SUBCUT DAILY PRN 08/10/17 [History Confirmed 06/04/19] Atenolol TAB* [Tenormin TAB* 25 MG] 25 mg PO DAILY #30 tab 10/30/18 [Rx Confirmed 06/04/19] Potassium Chlor TAB* [Klor Con ER TAB 10 MEQ*] 10 meq PO BID tab.er 12/16/18 [ Rx Confirmed 06/04/19] HYDROmorphone TAB* [Dilaudid Tab*] 8 mg PO Q3HR PRN 01/29/19 [History Confirmed 06/04/19] Bumetanide TAB* [Bumex 2 MG TAB*] 2 mg PO 0900,1800 tab 02/03/19 [Rx Confirmed 06/04/19] Azelastine 0.15% NASAL(NF) [Astepro 0.15% NASAL (NF)] 2 spray BOTH NARES BID btl 03/25/19 [Rx Confirmed 06/04/19] Ascorbate Calcium/Bioflavonoid [Ysabel-C 500 mg Tablet] 1 tab PO BID WITH MEALS 06/04/19 [History Confirmed 06/04/19] Ascorbic Acid TAB* [Vitamin C TAB*] 500 mg PO BID 06/04/19 [History Confirmed 06/04/19] Brimonidine Tartrate [Mirvaso] 0.33 % TOPICAL DAILY PRN 06/04/19 [History Confirmed 06/04/19] Clotrimazole/Betamethasone* [Lotrisone Cream*] 1 applic TOPICAL BID 06/04/19 [ History Confirmed 06/04/19] EPINEPHrine [Epipen 2-Justin] 0.3 mg IM DAILY PRN 06/04/19 [History Confirmed 06/03] Empagliflozin (NF) [Jardiance (Nf)] 10 mg PO DAILY 06/04/19 [History Confirmed 06/04/19] Estradiol (NF) 0.5 mg PO QAM 06/04/19 [History Confirmed 06/04/19] Floradix Iron And Herb 10 ml PO BID PC 06/04/19 [History Confirmed 06/04/19] Folic Acid TAB* [Folvite TAB*] 1 mg PO DAILY WITH MEAL 06/04/19 [History Confirmed 06/04/19] Gabapentin CAP(*) [Neurontin 100 mg CAP(*)] 100 mg PO TID 06/04/19 [History Confirmed 06/04/19] Insulin ASPART (NF) [Novolog 100 units/ml 10 ml VIAL (NF)] 15 units SUBCUT QPM 06/04/19 [History Confirmed 06/04/19] Insulin ASPART (NF) [Novolog 100 units/ml 10 ml VIAL (NF)] 20 units SUBCUT 1300 06/04/19 [History Confirmed 06/04/19] Insulin Degludec/Liraglutide [Xultophy 100 Unit-3.6MG/ml Pen 3 ml x 5 Pens] 50 units SUBCUT BEDTIME 06/04/19 [History Confirmed 06/04/19] Magnesium CITRATE* [Citrate of Magnesia*] 6 ml PO BID 06/04/19 [History Confirmed 06/04/19] Methotrexate* 25 mg SUBCUT WEEKLY 06/04/19 [History Confirmed 06/04/19] Miconazole Nitrate [Triple Paste AF] 2 % TOPICAL DAILY PRN 06/04/19 [History Confirmed 06/04/19] Mirtazapine TAB* [Remeron TAB*] 7.5 mg PO BEDTIME 06/04/19 [History Confirmed ] [place]-3/Dha/Epa/Fish Oil [Fish Oil 1,000 mg Softgel] 2,000 mg PO BID 06/04/19 [ History Confirmed 06/04/19] metFORMIN* [Glucophage 500 MG TAB *] 1,000 mg PO BID 06/04/19 [History Confirmed 06/04/19] PMH/Surg Hx/FS Hx/Imm Hx Endocrine/Hematology History: Reports: Hx Diabetes Denies: Hx Systemic Lupus Erythematosus, Hx Thyroid Disease, Hx Anemia Cardiovascular History: Reports: Hx Angina, Hx Hypercholesterolemia, Hx Hypertension, Other Cardiovascular Problems/Disorders - SUPERIOR VENA CAVA [id number]. [facility] Denies: Hx Congestive Heart Failure - superior vena cava syndrome, Hx Coronary Artery Disease, Hx Pacemaker/ICD, Hx Peripheral Vascular Disease, Hx Valvular Heart Disease Respiratory History: Reports: Hx Asthma Denies: Hx Chronic Obstructive Pulmonary Disease (COPD) GI History: Reports: Hx Diverticulosis, Hx Gastroesophageal Reflux Disease, Hx Hiatal Hernia, Other GI Disorders - HX DIVERTICULOSIS Denies: Hx Jaundice History: Reports: Hx Acute Renal Failure Denies: Hx Chronic Renal Failure, Hx Dialysis, Hx Renal Disease Musculoskeletal History: Reports: Hx Back Problems - degenerative disc disease, Hx Tendonitis - WRISTS AND ELBOWS, Other Musculoskeletal History - DEGEN DISC DISEASE; chronic pain Denies: Hx Arthritis, Hx Rheumatoid Arthritis - myeloradicular neurapathy, Hx Osteoporosis Sensory History: Reports: Hx Cataracts - BILAT, Hx Contacts or Glasses Denies: Hx Legally Blind, Hx Deafness, Hx Hearing Aid Opthamlomology History: Reports: Hx Cataracts - BILAT, Hx Contacts or Glasses Denies: Hx Legally Blind Neurological History: Reports: Hx Migraine - 2-3 TIMES PER WEEK- TREATS WITH IMITREX, Other Neuro Impairments/Disorders - multiple sclerosis, FIBROMYALGIA, MYELORADICULAR NEUROPATHY Denies: Hx Dementia, Hx Headaches, Hx Seizures, Hx Transient Ischemic Attacks (TIA) Psychiatric History: Denies: Hx Anxiety, Hx Depression, Hx Panic Disorder - Cancer History Hx Chemotherapy: No Hx Radiation Therapy: No - Surgical History Surgical History: Yes Surgery Procedure, Year, and Place: Hysterectomy 1999 [facility] [place]. D+C 1999 [facility] [place]. BOWEL RESECTION, COLOSTOMY 1993. COLOSTOMY WITH REVERSAL 1994 [facility] [place]. OVARIAN CYSTECTOMY 1996 [facility] [place]. LAP CRISTIAN WITH INFUSAPORT REMOVAL 2013 [facility] [place]. APPY REMOVAL OF RIGHT OVARIAN CYST AND RESECTION 1967. T&A. DEVIATED SEPTUM REPAIR. SINUS SURGERY 2006 [facility] [place]. INFUSAPORT 2004. 2015- LEFT EYE CATARACT REMOVED Hx Anesthesia Reactions: No - Immunization History Date of Influenza Vaccine: hsa not received Infectious Disease History: No Infectious Disease History: Reports: Hx Hepatitis - "medical"- only while taking a medication-states no longer takes, name unkn Denies: Traveled Outside the [place] in Last 30 Days - Family History Known Family History: Positive: Other - Breast CA; anesthesia reaction Negative: Cardiac Disease - Social History Alcohol Use: None Hx Substance Use: No Substance Use Type: Reports: None Hx Tobacco Use: Yes Smoking Status (MU): Former Smoker Type: Cigarettes Amount Used/How Often: 4 PPD X 15 YEARS Length of Time of Smoking/Using Tobacco: 20 YRS Have You Smoked in the Last Year: No Review of Systems Negative: Fever, Chills Negative: Nasal Discharge Negative: Chest Pain Negative: Shortness Of Breath, Cough Positive: Other - Bilateral hand pain, difficulty moving her right arm Neurological/Mental Status: Other - Dizziness Positive: Weakness All Other Systems Reviewed And Are Negative: Yes Physical Exam - Summary Physical Exam Summary: VITAL SIGNS: Reviewed. GENERAL: Patient is a well-developed and nourished female who is lying comfortable in the stretcher. Patient is not in any acute respiratory distress. Patient is not well groomed, disheveled. HEAD AND FACE: No signs of trauma. No ecchymosis, hematomas or skull depressions. No sinus tenderness. EYES: PERRLA, EOMI x 2, No injected conjunctiva, no nystagmus. No photophobia. EARS: Hearing grossly intact. Ear canals and tympanic membranes are within normal limits. MOUTH: Oropharynx within normal limits. NECK: Supple, trachea is midline, no adenopathy, no JVD, no carotid bruit, no c- spine tenderness, neck with full ROM. No meningeal signs, no Kernig's or brudzinskis signs. CHEST: Symmetric, no tenderness at palpation. LUNGS: Clear to auscultation bilaterally. No wheezing or crackles. CVS: Regular rate and rhythm, S1 and S2 present, no murmurs or gallops appreciated. ABDOMEN: Soft, non-tender. No signs of distention. No rebound, no guarding, and no masses palpated. Bowel sounds are normal. EXTREMITIES: FROM in all major joints, no edema, no cyanosis or clubbing. NEURO: Alert and oriented x 3. Speech is normal and follows commands. Right upper extremity weakness. NIH Stroke Scale 3. SKIN: Dry and warm. GCS: 15 Triage Information Reviewed: Yes Vital Signs On Initial Exam: Initial Vitals Temp Pulse Resp BP Pulse Ox 97.5 F 80 16 132/79 96 06/04/19 14:34 06/04/19 14:34 06/04/19 14:34 06/04/19 14:34 06/04/19 14:34 Vital Signs Reviewed: Yes - Rubén Coma Scale Best Eye Response: 4 - Spontaneous Best Motor Response: 6 - Obeys Commands Best Verbal Response: 5 - Oriented Coma Scale Total: 15 Procedures - Sedation Patient Received Moderate/Deep Sedation with Procedure: No Diagnostics - Vital Signs Vital Signs Temp Pulse Resp BP Pulse Ox 06/04/19 14:34 97.5 F 80 16 132/79 96 - Laboratory Result Diagrams: 06/04/19 14:56 06/04/19 20:04 Lab Statement: Any lab studies that have been ordered have been reviewed, and results considered in the medical decision making process. - Radiology Chest x-ray Radiology Interpretation Completed By: Radiologist Summary of Radiographic Findings: FINDINGS SUSPICIOUS FOR LEFT BASILAR ATELECTASIS. ED physician has reviewed this report. - CT Brain CT CT Interpretation Completed By: Radiologist Summary of CT Findings: No intracranial mass or hemorrhage. CSF density collection extra-axial in the. left posterior parietal lobe consistent with arachnoid cyst is noted unchanged since 2018. ED physician has reviewed this report. - EKG 16:52 Cardiac Rate: NL - 67 BPM EKG Rhythm: Sinus Rhythm Summary of EKG Findings: No ST elevations. ED physician has reviewed and interpreted this EKG. National Institutes Of Health - NIH Scale Level of Consciousness: Alert/Keenly Responsive Ask Patient the Month and His/Her Age: Both Correct Ask Pt to Open/Close Eyes and Cable Wirer/Release Non-Paretic Hand: Both Correctly Best Gaze (Only Horizontal Eye Movement): Normal Visual Field Testing: No Visual Loss Facial Paresis-Pt to Smile & Close Eyes or Grimace Symmetry: Normal/Symmetrical Motor Function - Right Arm: Drifts LT 10 seconds Motor Function - Left Arm: No Drift-Holds 10 Seconds Motor Function - Right Leg: No Drift-Holds 10 Seconds Motor Function - Left Leg: No Drift-Holds 10 Seconds Limb Ataxia-Must be out of Proportion to Weakness Present: Present in One Limb Sensory (Use Pinprick to Test Arms/Legs/Trunk/Face): Pinprick Less on Affected Best Language (Describe Picture, Name Items): No Aphasia Dysarthria (Read Several Words): Normal Extinction and Inattention: No Abnormality Total Score: 3 Course/Dx - Course Assessment/Plan: 68 year old F presenting to [facility] with a chief complaint of bilateral hand pain. Patient reports that she had difficulty moving her right arm 5 days ago and was dizzy 3 days ago. She also reports weakness. The patient rates the pain 8/10 in severity. Patient denies any shortness of breath, fever, chills, chest pain, cough, or runny nose. She did not have any home help over the weekend. The patient has an undiagnosed autoimmune disease. She states that she normally uses her walker to ambulate. Medication list reviewed. Allergy list reviewed. Initially I did not call stroke code since the patient has right upper extremity weakness since last Sunday. Therefore the patient will be medicated therefore no TPA or any further endovascular interventions. In the ED course the patient was placed on a burring machine operator, IV access was obtained, IV fluids started. She was given 2 liters of IVF. Past medical records reviewed. Blood test w/o a significant abnormality except for platelet count 146, sodium of 124, chloride is 86, creatinine 1.15, glucose of 1057, lactic acid is 3.4. Lactic acid is probably high secondary to her hyperglycemia. AST is 11 and alkaline phosphatase 172. Urinalysis is negative for UTI. CXR IMPRESSION: FINDINGS SUSPICIOUS FOR LEFT BASILAR ATELECTASIS. Head CT IMPRESSION: No intracranial mass or hemorrhage. CSF density collection extra- axial in the left posterior parietal lobe consistent with arachnoid cyst is noted unchanged since 2018. The patient was given IV fluids for her hyperosmolar nonketotic state. The patient also was started on an insulin drip. At this point I discussed my physical exam and findings with Dr. Fontana from the ICU and she accepted the patient for admission. If needed, Dr. Fontana will consult neurology. - Diagnoses Provider Diagnoses: Hyperosmolar non-ketotic state in patient with type 2 diabetes mellitus - Physician Notifications Discussed Care of Patient With: Blanquita Fontana Time Discussed With Above Provider: 17:25 Instructed by Provider To: Other - Discussed with Dr. Fontana who accepts the patient for admission to the ICU. - Critical Care Time Critical Care Statement: Critical care time is provided exclusive of any time spent performing procedures. Discharge ED - Sign-Out/Discharge Documenting (check all that apply): Patient Departure - Discharge Plan Condition: Stable Disposition: ADMITTED TO [facility] - Billing Disposition and Condition Condition: STABLE Disposition: Admitted to [facility] - Attestation Statements Document Initiated by Scribe: Yes Documenting Scribe: Anel Marie Provider For Whom Scribe is Documenting (Include Credential): Tony Mathew MD Scribe Attestation: I, Anel Marie, scribed for Tony Mathew MD on 06/04/19 at 2051. Scribe Documentation Reviewed: Yes Provider Attestation: The documentation as recorded by the [email or web address] accurately reflects the service I personally performed and the decisions made by me, Tony Mathew MD Status of Scribe Document: Viewed
[2019-06-04 16:11] LABS: Urine Appearance Clear; Urine Bilirubin Negative (Negative); Urine Blood Negative (Negative); Urine Color Colorless; Urine Glucose 3+(>=500 mg/dL) (Negative); Urine Ketones Negative (Negative); Urine Nitrite Negative (Negative); Urine Protein Negative (Negative); Urine Specific Gravity 1.014 (1.010-1.030); Urine Urobilinogen Negative (Negative)
[2019-06-04 16:16] LABS: ABS Eosinophils 0.1 10^3/ul (0-0.6); ABS Lymphocytes 1.7 10^3/ul (1.0-4.8); ABS Monocytes 0.5 10^3/ul (0-0.8); ABS Neutrophils 2.8 10^3/ul (1.5-7.7); Eosinophil % 1.5 %; Hematocrit 47 % (35-47); Hemoglobin 15.8 g/dL (12.0-16.0); Lymphocyte % 33.1 %; Mean Corpuscular HGB Conc 34 g/dL (31-36); Mean Corpuscular Hemoglobin 31 pg (27-31); Mean Corpuscular Volume 92 fL (80-97); Mean Platelet Volume 9.1 fL (7.4-10.4); Nucleated Red Blood Cells % 0.1; Platelet Count 146 10^3/uL (150-450); Red Blood Count 5.08 10^6 /uL (3.70-4.87); Red Cell Distribution Width 14 % (10-15); White Blood Count 5.1 10^3/uL (3.5-10.8)
[2019-06-04 16:18] LABS: Activated Partial Thrombo Time 30.4 seconds (26.0-38.0); INR 0.94 (0.82-1.09)
[2019-06-04 16:47] LABS: ALT 13 U/L (7-52); AST 11 U/L (13-39); Albumin 3.7 g/dL (3.2-5.2); Albumin/Globulin Ratio 1.1 (1-3); Alkaline Phosphatase 172 U/L (34-104); Anion Gap 11 mmol/L (2-11); BUN/Creatinine Ratio 13.9 (8-20); Blood Urea Nitrogen 16 mg/dL (6-24); CO2 Carbon Dioxide 27 mmol/L (22-32); Calcium 8.8 mg/dL (8.6-10.3); Chloride 86 mmol/L (101-111); Cholesterol 161 mg/dL; EGFR African American 56.4 (>60); EGFR Non-African American 46.6 (>60); Globulin 3.3 g/dL (2-4); HDL Cholesterol 32.9 mg/dL; Sodium 124 mmol/L (135-145); Triglycerides 717 mg/dL
[2019-06-04 16:54] LABS: Alcohol < 10 mg/dL (<10)
[2019-06-04 17:03] LABS: LDL Cholesterol Direct 50 mg/dL
[2019-06-04 17:10] LABS: Glucose 1057 mg/dL (70-100)
[2019-06-04] MEDS ORDERED: Insulin Infusion 100unit/100mL 100 UNIT/100 ML BAG IV ONE (17:30)
[2019-06-04] MEDS: NS 0.9% 1000 ML** 2,000 ML IV ONE ×2 (17:32→18:21)
[2019-06-04] MEDS ORDERED: NS 0.9% 1000 ML** 1,000 ML IV SCH (18:15)
[2019-06-04] MEDS ORDERED: Insulin Infusion 100unit/100mL 100 UNIT/100 ML BAG IV SCH (18:41)
[2019-06-04] MEDS ORDERED: D5W 1/2 NS 1000 ML BAG* 1,000 ML IV SCH (18:41)
[2019-06-04] MEDS ORDERED: Polyethylene Glycol 3350* 17 GM PACKET PO PRN (19:41)
[2019-06-04] MEDS: Potassium Chlor TAB* 10 MEQ TAB.ER PO SCH (20:08)
[2019-06-04] MEDS: Atorvastatin* 10 MG TAB PO SCH (20:08)
[2019-06-04] MEDS: Mirtazapine TAB* 15 MG PO SCH (20:10)
[2019-06-04] MEDS: Gabapentin CAP(*) 100 MG PO SCH (20:10)
[2019-06-04] MEDS: Enoxaparin(*) 40 MG/0.4 ML SYR SUBCUT SCH (20:11)
[2019-06-04] MEDS: HYDROmorphone TAB* 4 MG PO PRN (20:18)
[2019-06-04 20:30] LABS: BUN/Creatinine Ratio 13.5 (8-20); Calcium 8.5 mg/dL (8.6-10.3); EGFR African American 63.4 (>60); EGFR Non-African American 52.4 (>60); Potassium 2.9 mmol/L (3.5-5.0)
[2019-06-04] MEDS ORDERED: Magnesium Sulfate 1 GM IV* 1 GM/100 ML BAG IV ONE (21:00)
[2019-06-04 21:10] LABS: Magnesium 2.4 mg/dL (1.9-2.7)
[2019-06-04] MEDS: KCL 20 MEQ/100 ML IVPREMIX* 20 MEQ/100 ML BAG IV SCH ×2 (21:11→23:33)
[2019-06-04] MEDS ORDERED: Insulin GLARGINE(*) 1 UNITS UNIT SUBCUT ONE (22:10)
[2019-06-04] MEDS ORDERED: Dextrose 50% Syringe 50 ML* 25 GM/50 ML SYRINGE IV PUSH PRN (22:11)
[2019-06-04] MEDS: Baclofen TAB* 20 MG PO PRN (22:33)
[2019-06-04] MEDS: Insulin LISPRO* 1 UNITS UNIT SUBCUT SCH (23:11)
[2019-06-05 00:18] LABS: Calcium 8.1 mg/dL (8.6-10.3); EGFR African American 85.8 (>60); EGFR Non-African American 70.9 (>60); Potassium 4.3 mmol/L (3.5-5.0)
--- NOTE | 2019-06-05 00:25 | HP ---
CC: Dr. Anila Saul; Dr. Blanquita Fontana* ADMISSION HISTORY AND PHYSICAL: DATE OF ADMISSION: 06/04/19 PRIMARY CARE PROVIDER: Dr. Anila Saul. ATTENDING FOR THIS ADMISSION: Dr. Blanquita Fontana* (dictated by Elicia Beltran NP). CHIEF COMPLAINT: Hyperglycemia and weakness. HISTORY OF PRESENT ILLNESS: Ms. 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 The patient states that she was at home in her usual state of health. Her aide had been coming to see her over the last couple of days. She does have an aide in the house for 4 hours a day. The patient is unclear about the course of events. Her history relating to the events leading up to her hospitalization are also sort of unclear. However , in any case, she states she was in the bathroom trying to have a bowel movement, she is unaware how long she was on the toilet for and states that she might have passed out. Her cat was coming in to check on her. She did not take her insulin and then when her aide came to see her, they called her primary care doctor because she was not feeling well. Her symptoms were very vague and her primary care doctor suggested she come to the hospital for evaluation. Upon arrival in the ED, her sugar was noted to be greater than 1000. She was placed on an insulin drip and given fluids. ICU was called to further manage her hyperglycemia. PAST MEDICAL HISTORY: As noted above, her past medical history is significant for type 2 diabetes mellitus with insulin dependence, history of a demyelinating disease, migraines, peripheral neuropathy, superior vena cava syndrome, GERD, anemia, diverticulitis and IBD, inflammatory polyarthropathy, fibromyalgia, osteoarthritis, osteoporosis, chronic pain. HOME MEDICATIONS: Include: 1. Magnesium citrate 6 mL p.o. b.i.d. 2. Folic acid 1 mg p.o. daily. 3. Fish oil 2000 mg p.o. b.i.d. 4. Vitamin C 1 tablet p.o. b.i.d. with meals. 5. Miconazole Triple Paste 2% topical daily as needed. 6. Mirvaso topical daily as needed. 7. MetroCream topical 2 times a day as needed. 8. Lotrisone cream topical 2 times a day as needed. 9. Remeron 7.5 mg p.o. at bedtime. 10. Clobetasol ointment topical 2 times a day as needed. 11. Xultophy 100/3.6 mg pen 50 units subcu at bedtime. 12. Vitamin C tablet 500 mg p.o. b.i.d. 13. Imitrex 0.5 mL subcu as needed for headache. 14. Klor-Con 10 mEq p.o. b.i.d. 15. Zofran 4 mg sublingual q.4 hours as needed. 16. NovoLog 20 units subcu at 1 p.m. and 15 units in the evening. 17. Methotrexate 25 mg subcu weekly. 18. Metformin 1000 mg p.o. b.i.d. 19. Linzess 290 mcg p.o. in the morning. 20. Xyzal 5 mg p.o. daily. 21. Jardiance 10 mg p.o. daily. 22. Imitrex 100 mg p.o. daily as needed for migraine. 23. Ipratropium bromide nasal 1 spray both nares 4 times a day as needed. 24. Gabapentin 100 mg p.o. 3 times a day. 25. Floradix iron and herbs 10 mL p.o. 2 times a day. 26. Estradiol 0.5 mg p.o. in the morning. 27. EpiPen as needed. 28. Hydromorphone 8 mg p.o. q.3 hours as needed for pain. 29. Dexilant 60 mg p.o. daily. 30. Bumex 2 mg p.o. at 9 a.m. and 6 p.m. 31. Baclofen 20 mg p.o. 4 times a day as needed. 32. Astepro 2 sprays both nares 2 times daily. 33. Lipitor 5 mg at bedtime. 34. Atenolol 25 mg p.o. daily. 35. Alpha lipoic acid 200 mg p.o. b.i.d. ALLERGIES: METHYLPARABEN, MORPHINE, TIZANIDINE, TRICYCLIC COMPOUNDS, DIPHENHYDRAMINE, HYDROMORPHONE, ITRACONAZOLE, LANOLIN, MILNACIPRAN, MOMETASONE, NALOXONE, ONDANSETRON which is unusual because she takes it every day, OXYCODONE , OXYMORPHONE, PENICILLINS, PENTAZOCINE, PROPOXYPHENE, SULFASALAZINE, TALC, TRAMADOL, TRAZODONE, ADHESIVE TAPE, ALPRAZOLAM, ASPIRIN, CEFACLOR, CLARITHROMYCIN, CODEINE, DIAZEPAM, DOXYCYCLINE, DULOXETINE, FENTANYL, FLUOXETINE , GABAPENTIN, HYDROXYCHLOROQUINE, PAROXETINE, ACETAMINOPHEN, ADHESIVE, AMITRIPTYLINE, APPLES, BLACK PEPPER, BLEACH, CAPSAICIN, CIGARETTE SMOKE, CORTICOSTEROIDS, NORPRAMIN, DOXEPIN, IBUPROFEN, MELON, METHYLPREDNISOLONE, MUPIROCIN, NSAIDS, PIROXICAM, TAPENTADOL, LETTUCE, VINEGAR, AND BAND-AIDS. FAMILY HISTORY: Positive for depression. SOCIAL HISTORY: The patient lives by herself. She has a home health aide. She does have a son that lives in [place] who would be her person to call in case of emergency. REVIEW OF SYSTEMS: The patient endorses feeling weak with all over pain, otherwise vague malaise. Denies chest pain, shortness of breath. No fevers, no chills. No nausea, no vomiting. She has some chronic arthralgias and myalgias and no further constitutional complaints. She does describe some painful range of motion and some weakness in the bilateral upper extremities. PHYSICAL EXAMINATION VITAL SIGNS: Blood pressure 104/64, heart rate 62, respiratory rate 19, O2 saturation 99% on room air with a temperature of 97.4. HEENT: The patient is atraumatic, normocephalic. PERRLA. Nonicteric sclerae. Oral mucosa is moist. Dentition is poor. LUNGS: Clear bilaterally to auscultation with no wheezing, rhonchi, or rales. CARDIOVASCULAR: S1, S2 present. No murmurs, gallops, or rubs noted. Rate and rhythm are regular. ABDOMEN: Soft, tender particularly in the right and left lower quadrants. She has positive bowel sounds in all 4 quadrants. : Deferred. MUSCULOSKELETAL: There is no clubbing or cyanosis. She has full range of motion. She is tender diffusely in her lower extremities to light touch and palpation. SKIN: Warm, dry, and intact. NEUROLOGIC: She is alert and oriented x3 with no acute focalities. LABORATORY DATA: WBCs 5.1, RBCs 5.08, hemoglobin 15.8, hematocrit 47, platelets 146. Sodium 124, potassium 4.0, chloride 86, CO2 27, anion gap 11, BUN 16, creatinine 1.15, GFR 46.6. Initial glucose is 1057, repeat is 797. Lactic acid 3.4, calcium 8.8, total bilirubin 0.60. AST 11, ALT 13, alk phos 172. Troponin 0.00. Total protein 7.0, albumin 3.7, globulin 3.3, albumin- globulin ratio 1.1. Triglycerides 717, cholesterol 161, LDL direct is 50, HDL 32.9. INR 0.94. Serum alcohol less than 10. Urinalysis shows 3+ glucose but no obvious infective process. IMAGING: Chest x-ray shows left basilar atelectasis. CT of the brain shows no intracranial mass or hemorrhage and a left posterior parietal lobe extra-axial fluid collection consistent with an arachnoid cyst, which is noted unchanged since 2018. IMPRESSION AND PLAN: Ms. Brown is a 68-year-old female patient who presents to the emergency department with general malaise and weakness, potentially a fall although this is unwitnessed and the patient is unsure of precipitating events, who will be admitted for hyperglycemia. Plan: The patient has been admitted to ICU. Hyperglycemic hyperosmolar syndrome. The patient has been placed on insulin drip in the emergency department. The patient does not have an anion gap. She is not obviously in diabetic ketoacidosis. At this time, she has been started on insulin drip. Her sugar is starting to come down. It is down 300 points already. Her vital signs are stable. She does not appear acidotic. She does have lactic acidosis, but she does not show any hemodynamic instability. Blood pressure has been stable, heart rate is also stable, and she is afebrile. At this point, we will continue to monitor her sugars q.1 hour per protocol. She has received 3 L of normal saline. Her electrolytes at this time, sodium is 124 , corrected sodium is around 140. She will be continued on normal saline at 200 and continue to follow her labs q.4 hours. We will repeat a lactic acid at 8 p.m. She is obviously having lactic acidemia from acute dehydration. She does report having poor p.o. intake over the last couple of days and has not been taking her insulin. Per previous records, it does appear the patient has had a significant amount of difficulty with adhering to an insulin regimen and although she has an aide in the house, it appears that she was not checking her sugar or taking her insulin and this has been an ongoing problem. Her admission from 2018 seems to have similar issues. So at this time, we will try to regulate her sugars and get her numbers back into a safe range and will likely be discharged out of the ICU to the regular floor. In terms of her other comorbidities, there are many, I am most concerned honestly about her chronic pain. She takes exceedingly high doses of Dilaudid. At this point, we will continue her pain medications in some modified form. I am concerned about her having some central nervous system depression especially with her sugar reading so high, but I also would be worried about the patient having acute withdrawal. So at this time, I have ordered her Dilaudid at a lower dose, continue her on gabapentin, continue her baclofen, her Bumex, her medications for her irritable bowel syndrome as she was struggling to have a bowel movement and continue her bowel regimen, continue her atenolol and her atorvastatin, mirtazapine for this evening, and continue to monitor her laboratories daily. I would also suggest that after her labs have been stabilized, restarting her home medications and then probably having a physical therapy and occupational therapy evaluation and having a social work consult. It does seem the patient may not be safe being at home by herself if she is going to continue to not take her insulin or check her blood sugars. For DVT prophylaxis, the patient has been started on Lovenox 40 mg q.24 hours and PPI for DVT prophylaxis. She is on Dexilant, we do not have that on formulary. She will be started on Protonix. At this time, she will be on bedrest. She is a full code, and again her son would be person to notify. Rest of the patient's course would be determined by further diagnostics, laboratories, and any other input from other providers as warranted during this admission. TIME SPENT: On admission and planning is 45 minutes. This plan of care has been discussed with Dr. Blanquita Fontana, attending on this admission, and she is in agreement with the plan of care. ELICIA BELTRAN, [employer] [id number]/[facility] #: [id number] [facility] [facility]
[2019-06-05] MEDS: Insulin LISPRO* 1 UNITS UNIT SUBCUT SCH ×6 (02:01→21:10)
[2019-06-05] MEDS: NS 0.9% 1000 ML** 1,000 ML IV SCH ×2 (04:00→12:10)
[2019-06-05 05:00] LABS: BUN/Creatinine Ratio 15.1 (8-20); EGFR African American 95.4 (>60); EGFR Non-African American 78.8 (>60); Magnesium 2.5 mg/dL (1.9-2.7); Phosphorus 1.2 mg/dL (2.5-5.0)
[2019-06-05 05:55] LABS: Hematocrit 41 % (35-47); Hemoglobin 14.3 g/dL (12.0-16.0); Mean Corpuscular HGB Conc 35 g/dL (31-36); Mean Corpuscular Hemoglobin 31 pg (27-31); Mean Corpuscular Volume 89 fL (80-97); Mean Platelet Volume 8.7 fL (7.4-10.4); Platelet Count 170 10^3/uL (150-450); Red Blood Count 4.64 10^6 /uL (3.70-4.87); Red Cell Distribution Width 14 % (10-15); White Blood Count 9.8 10^3/uL (3.5-10.8)
[2019-06-05] MEDS: CMCS:LINACLOTIDE 72 MCG CAP (NF) PO SCH (07:35)
[2019-06-05] MEDS: Gabapentin CAP(*) 100 MG PO SCH ×3 (08:53→21:08)
[2019-06-05] MEDS: Pantoprazole TAB * 40 MG TAB PO SCH (08:53)
[2019-06-05] MEDS: Potassium Chlor TAB* 10 MEQ TAB.ER PO SCH ×2 (08:53→21:08)
[2019-06-05 09:07] LABS: ABS Basophils 0.1 10^3/ul (0-0.2); ABS Eosinophils 0.3 10^3/ul (0-0.6); ABS Lymphocytes 5.6 10^3/ul (1.0-4.8); ABS Monocytes 0.9 10^3/ul (0-0.8); Eosinophil % 2.8 %; Lymphocyte % 57.8 %; Nucleated Red Blood Cells % 0.2
[2019-06-05] MEDS: Atenolol TAB* 25 MG PO SCH (09:21)
[2019-06-05] MEDS: Bumetanide TAB* 2 MG PO SCH ×2 (09:22→17:52)
[2019-06-05] MEDS: SUMAtriptan TAB* 100 MG PO PRN (10:04)
--- NOTE | 2019-06-05 14:09 | PN ---
Date of Service: 06/05/19 Critical Care Services: Patient seen and examined. No acute overnight events. Sugar corrected at about 10pm and insulin drip was discontinued. She was placed on long acting and is tolerating meals. She is complaining of generalized abdominal pain, but denies n /v, no fevers or chills, no SOB or chest pain, no dizziness. Vital Signs: Temp Pulse Resp BP SpO2 FiO2 99.1 F 60 21 145/88 92 06/05/19 11:41 06/05/19 13:00 06/05/19 13:00 06/05/19 13:00 06/05/19 13:00 Physical Exam: General: Alert, NAD HEENT: Normocephalic, atraumatic, non-icteric sclera, moist oral mucosa Neck: soft, supple, no JVD CV: Regular rate and rhythm, no murmurs or rubs Pulm/Chest: Good bilateral air entry, no rhonchi or rales, no wheeze Abdomen/GI: soft, nontender, nondistended, +BS noted MSK/Skin: warm, dry, intact, +2 pulses+, no edema or cyanosis Neuro: A&Ox3, general weakness Psych: Flat affect Fluid Balance (Past 24 Hours): I= O= Net Intake & Output 06/03/19 06/04/19 06/05/19 06/06/19 06:59 06:59 06:59 06:59 Intake Total 3603.4 963 Output Total 800 400 Balance 2803.4 563 Weight 148 lb 2.41 oz Intake: IV Fluids 3288 723 NS 1288 723 IVPB 310 KCl 210 Mag 100 Medicated IV 5.4 Insulin 5.4 Oral 240 Output: Urine 800 400 Other: Estimated Void Medium Date of Last Bowel t Movement # Bowel Movements 1 Estimated Stool Amount Small Small Labs: Laboratory Results - last 24 hr 06/04/19 06/04/19 06/04/19 14:56 14:56 14:56 WBC 5.1 RBC 5.08 H Hgb 15.8 Hct 47 MCV 92 MCH 31 MCHC 34 RDW 14 Plt Count 146 L MPV 9.1 Neut % (Auto) 55.1 Lymph % (Auto) 33.1 [place] % (Auto) 10.1 Eos % (Auto) 1.5 Baso % (Auto) 0.2 Absolute Neuts (auto) 2.8 Absolute Lymphs (auto) 1.7 Absolute Monos (auto) 0.5 Absolute Eos (auto) 0.1 Absolute Basos (auto) 0.0 Absolute Nucleated RBC 0.0 Neutrophils % Lymphocytes % Reactive Lymphs % Monocytes % Eosinophils % Nucleated RBC % 0.1 Hypogranular Platelets Clumped Platelets Large Platelets Giant Platelets Normal RBC Morphology Hem Pathologist Commnt INR (Anticoag Therapy) 0.94 APTT 30.4 Sodium Potassium Chloride Carbon Dioxide Anion Gap BUN Creatinine Est GFR ( Amer) Est GFR (Non-Af Amer) BUN/Creatinine Ratio Glucose POC Glucose (mg/dL) Glucose Meter Confirm Lactic Acid Calcium Phosphorus Magnesium Total Bilirubin AST ALT Alkaline Phosphatase Troponin I B-Natriuretic Peptide Total Protein Albumin Globulin Albumin/Globulin Ratio Triglycerides Cholesterol LDL Cholesterol LDL Cholesterol Direct HDL Cholesterol Urine Color Colorless Urine Appearance Clear Urine pH 7.0 Ur Specific [place] 1.014 Urine Protein Negative Urine Ketones Negative Urine Blood Negative Urine Nitrate Negative Urine Bilirubin Negative Urine Urobilinogen Negative Ur Leukocyte Esterase Negative Urine Glucose 3+(>=500 mg/dl) A Serum Alcohol Blood Type Antibody Screen 06/04/19 06/04/19 06/04/19 14:56 14:56 14:56 WBC RBC Hgb Hct MCV MCH MCHC RDW Plt Count MPV Neut % (Auto) Lymph % (Auto) [place] % (Auto) Eos % (Auto) Baso % (Auto) Absolute Neuts (auto) Absolute Lymphs (auto) Absolute Monos (auto) Absolute Eos (auto) Absolute Basos (auto) Absolute Nucleated RBC Neutrophils % Lymphocytes % Reactive Lymphs % Monocytes % Eosinophils % Nucleated RBC % Hypogranular Platelets Clumped Platelets Large Platelets Giant Platelets Normal RBC Morphology Hem Pathologist Commnt INR (Anticoag Therapy) APTT Sodium 124 L Potassium 4.0 Chloride 86 L Carbon Dioxide 27 Anion Gap 11 BUN 16 Creatinine 1.15 H Est GFR ( Amer) 56.4 Est GFR (Non-Af Amer) 46.6 BUN/Creatinine Ratio 13.9 Glucose 1057 H* POC Glucose (mg/dL) Glucose Meter Confirm Lactic Acid 3.4 H* Calcium 8.8 Phosphorus Magnesium Total Bilirubin 0.60 AST 11 L ALT 13 Alkaline Phosphatase 172 H Troponin I 0.00 B-Natriuretic Peptide Total Protein 7.0 Albumin 3.7 Globulin 3.3 Albumin/Globulin Ratio 1.1 Triglycerides 717 Cholesterol 161 LDL Cholesterol LDL Cholesterol Direct 50 HDL Cholesterol 32.9 Urine Color Urine Appearance Urine pH Ur Specific [place] Urine Protein Urine Ketones Urine Blood Urine Nitrate Urine Bilirubin Urine Urobilinogen Ur Leukocyte Esterase Urine Glucose Serum Alcohol < 10 Blood Type O Positive Antibody Screen Negative 06/04/19 06/04/19 06/04/19 17:30 18:10 18:17 WBC RBC Hgb Hct MCV MCH MCHC RDW Plt Count MPV Neut % (Auto) Lymph % (Auto) [place] % (Auto) Eos % (Auto) Baso % (Auto) Absolute Neuts (auto) Absolute Lymphs (auto) Absolute Monos (auto) Absolute Eos (auto) Absolute Basos (auto) Absolute Nucleated RBC Neutrophils % Lymphocytes % Reactive Lymphs % Monocytes % Eosinophils % Nucleated RBC % Hypogranular Platelets Clumped Platelets Large Platelets Giant Platelets Normal RBC Morphology Hem Pathologist Commnt INR (Anticoag Therapy) APTT Sodium Potassium Chloride Carbon Dioxide Anion Gap BUN Creatinine Est GFR ( Amer) Est GFR (Non-Af Amer) BUN/Creatinine Ratio Glucose 797 H* POC Glucose (mg/dL) > 444 H* > 444 H* Glucose Meter Confirm Lactic Acid Calcium Phosphorus Magnesium Total Bilirubin AST ALT Alkaline Phosphatase Troponin I B-Natriuretic Peptide Total Protein Albumin Globulin Albumin/Globulin Ratio Triglycerides Cholesterol LDL Cholesterol LDL Cholesterol Direct HDL Cholesterol Urine Color Urine Appearance Urine pH Ur Specific [place] Urine Protein Urine Ketones Urine Blood Urine Nitrate Urine Bilirubin Urine Urobilinogen Ur Leukocyte Esterase Urine Glucose Serum Alcohol Blood Type Antibody Screen 06/04/19 06/04/19 06/04/19 20:04 20:04 20:04 WBC RBC Hgb Hct MCV MCH MCHC RDW Plt Count MPV Neut % (Auto) Lymph % (Auto) [place] % (Auto) Eos % (Auto) Baso % (Auto) Absolute Neuts (auto) Absolute Lymphs (auto) Absolute Monos (auto) Absolute Eos (auto) Absolute Basos (auto) Absolute Nucleated RBC Neutrophils % Lymphocytes % Reactive Lymphs % Monocytes % Eosinophils % Nucleated RBC % Hypogranular Platelets Clumped Platelets Large Platelets Giant Platelets Normal RBC Morphology Hem Pathologist Commnt INR (Anticoag Therapy) APTT Sodium 140 D Potassium 2.9 L Chloride 98 L Carbon Dioxide 35 H Anion Gap 7 BUN 14 Creatinine 1.04 H Est GFR ( Amer) 63.4 Est GFR (Non-Af Amer) 52.4 BUN/Creatinine Ratio 13.5 Glucose 398 H POC Glucose (mg/dL) Glucose Meter Confirm 398 H Lactic Acid 3.5 H* Calcium 8.5 L Phosphorus Magnesium 2.4 Total Bilirubin AST ALT Alkaline Phosphatase Troponin I B-Natriuretic Peptide 103 H Total Protein Albumin Globulin Albumin/Globulin Ratio Triglycerides Cholesterol LDL Cholesterol LDL Cholesterol Direct HDL Cholesterol Urine Color Urine Appearance Urine pH Ur Specific [place] Urine Protein Urine Ketones Urine Blood Urine Nitrate Urine Bilirubin Urine Urobilinogen Ur Leukocyte Esterase Urine Glucose Serum Alcohol Blood Type Antibody Screen 06/04/19 06/04/19 06/04/19 21:04 22:05 23:05 WBC RBC Hgb Hct MCV MCH MCHC RDW Plt Count MPV Neut % (Auto) Lymph % (Auto) [place] % (Auto) Eos % (Auto) Baso % (Auto) Absolute Neuts (auto) Absolute Lymphs (auto) Absolute Monos (auto) Absolute Eos (auto) Absolute Basos (auto) Absolute Nucleated RBC Neutrophils % Lymphocytes % Reactive Lymphs % Monocytes % Eosinophils % Nucleated RBC % Hypogranular Platelets Clumped Platelets Large Platelets Giant Platelets Normal RBC Morphology Hem Pathologist Commnt INR (Anticoag Therapy) APTT Sodium Potassium Chloride Carbon Dioxide Anion Gap BUN Creatinine Est GFR ( Amer) Est GFR (Non-Af Amer) BUN/Creatinine Ratio Glucose POC Glucose (mg/dL) 321 H 161 H 137 H Glucose Meter Confirm Lactic Acid Calcium Phosphorus Magnesium Total Bilirubin AST ALT Alkaline Phosphatase Troponin I B-Natriuretic Peptide Total Protein Albumin Globulin Albumin/Globulin Ratio Triglycerides Cholesterol LDL Cholesterol LDL Cholesterol Direct HDL Cholesterol Urine Color Urine Appearance Urine pH Ur Specific [place] Urine Protein Urine Ketones Urine Blood Urine Nitrate Urine Bilirubin Urine Urobilinogen Ur Leukocyte Esterase Urine Glucose Serum Alcohol Blood Type Antibody Screen 06/04/19 06/04/19 06/05/19 23:55 23:55 01:47 WBC RBC Hgb Hct MCV MCH MCHC RDW Plt Count MPV Neut % (Auto) Lymph % (Auto) [place] % (Auto) Eos % (Auto) Baso % (Auto) Absolute Neuts (auto) Absolute Lymphs (auto) Absolute Monos (auto) Absolute Eos (auto) Absolute Basos (auto) Absolute Nucleated RBC Neutrophils % Lymphocytes % Reactive Lymphs % Monocytes % Eosinophils % Nucleated RBC % Hypogranular Platelets Clumped Platelets Large Platelets Giant Platelets Normal RBC Morphology Hem Pathologist Commnt INR (Anticoag Therapy) APTT Sodium 136 Potassium 4.3 Chloride 102 Carbon Dioxide 30 Anion Gap 4 BUN 12 Creatinine 0.80 Est GFR ( Amer) 85.8 Est GFR (Non-Af Amer) 70.9 BUN/Creatinine Ratio 15.0 Glucose 177 H POC Glucose (mg/dL) 194 H Glucose Meter Confirm Lactic Acid 1.3 Calcium 8.1 L Phosphorus Magnesium Total Bilirubin AST ALT Alkaline Phosphatase Troponin I B-Natriuretic Peptide Total Protein Albumin Globulin Albumin/Globulin Ratio Triglycerides Cholesterol LDL Cholesterol LDL Cholesterol Direct HDL Cholesterol Urine Color Urine Appearance Urine pH Ur Specific [place] Urine Protein Urine Ketones Urine Blood Urine Nitrate Urine Bilirubin Urine Urobilinogen Ur Leukocyte Esterase Urine Glucose Serum Alcohol Blood Type Antibody Screen 06/05/19 06/05/19 06/05/19 04:33 04:33 05:44 WBC Cancelled 9.8 RBC Cancelled 4.64 Hgb Cancelled 14.3 Hct Cancelled 41 MCV Cancelled 89 MCH Cancelled 31 MCHC Cancelled 35 RDW Cancelled 14 Plt Count Cancelled 170 MPV Cancelled 8.7 Neut % (Auto) Cancelled 30.2 Lymph % (Auto) Cancelled 57.8 [place] % (Auto) Cancelled 8.7 Eos % (Auto) Cancelled 2.8 Baso % (Auto) Cancelled 0.5 Absolute Neuts (auto) Cancelled 3.0 Absolute Lymphs (auto) Cancelled 5.6 H Absolute Monos (auto) Cancelled 0.9 H Absolute Eos (auto) Cancelled 0.3 Absolute Basos (auto) Cancelled 0.1 Absolute Nucleated RBC Cancelled 0.0 Neutrophils % 24.0 Lymphocytes % 59.0 Reactive Lymphs % 8.0 H Monocytes % 7.0 Eosinophils % 2.0 Nucleated RBC % Cancelled 0.2 Hypogranular Platelets Cancelled Clumped Platelets Cancelled Large Platelets Cancelled Giant Platelets Cancelled Normal RBC Morphology Normal Hem Pathologist Commnt INR (Anticoag Therapy) APTT Sodium 136 Potassium 4.0 Chloride 107 Carbon Dioxide 25 Anion Gap 4 BUN 11 Creatinine 0.73 Est GFR ( Amer) 95.4 Est GFR (Non-Af Amer) 78.8 BUN/Creatinine Ratio 15.1 Glucose 164 H POC Glucose (mg/dL) Glucose Meter Confirm Lactic Acid Calcium 8.0 L Phosphorus 1.2 L Magnesium 2.5 Total Bilirubin AST ALT Alkaline Phosphatase Troponin I B-Natriuretic Peptide Total Protein Albumin Globulin Albumin/Globulin Ratio Triglycerides Cholesterol LDL Cholesterol LDL Cholesterol Direct HDL Cholesterol Urine Color Urine Appearance Urine pH Ur Specific [place] Urine Protein Urine Ketones Urine Blood Urine Nitrate Urine Bilirubin Urine Urobilinogen Ur Leukocyte Esterase Urine Glucose Serum Alcohol Blood Type Antibody Screen 06/05/19 06/05/19 06:02 09:45 WBC RBC Hgb Hct MCV MCH MCHC RDW Plt Count MPV Neut % (Auto) Lymph % (Auto) [place] % (Auto) Eos % (Auto) Baso % (Auto) Absolute Neuts (auto) Absolute Lymphs (auto) Absolute Monos (auto) Absolute Eos (auto) Absolute Basos (auto) Absolute Nucleated RBC Neutrophils % Lymphocytes % Reactive Lymphs % Monocytes % Eosinophils % Nucleated RBC % Hypogranular Platelets Clumped Platelets Large Platelets Giant Platelets Normal RBC Morphology Hem Pathologist Commnt INR (Anticoag Therapy) APTT Sodium Potassium Chloride Carbon Dioxide Anion Gap BUN Creatinine Est GFR ( Amer) Est GFR (Non-Af Amer) BUN/Creatinine Ratio Glucose POC Glucose (mg/dL) 175 H 226 H Glucose Meter Confirm Lactic Acid Calcium Phosphorus Magnesium Total Bilirubin AST ALT Alkaline Phosphatase Troponin I B-Natriuretic Peptide Total Protein Albumin Globulin Albumin/Globulin Ratio Triglycerides Cholesterol LDL Cholesterol LDL Cholesterol Direct HDL Cholesterol Urine Color Urine Appearance Urine pH Ur Specific [place] Urine Protein Urine Ketones Urine Blood Urine Nitrate Urine Bilirubin Urine Urobilinogen Ur Leukocyte Esterase Urine Glucose Serum Alcohol Blood Type Antibody Screen Studies: CT brain: IMPRESSION: No intracranial mass or hemorrhage. CSF density collection extra- axial in the left posterior parietal lobe consistent with arachnoid cyst is noted unchanged since 2018. CXR: IMPRESSION: FINDINGS SUSPICIOUS FOR LEFT BASILAR ATELECTASIS. Nutrition: consistent carb Impression: This is a 68 year old female that presented to the ED with complaints of malaise and weakness, found to have blood glucose of 1095 without a gap: Diagnoses: 1. HHS 2. Hx of Inflammatory Polyarthropathy 2. Chronic Pain 3. HTN 4. Migraines 5. Non-adherence to Medical Therapy Plan: Neuro - Poor historian upon arrival but mentation intact today now that sugar is well controlled - CT head as above with no acute pathology - Treat migraine with sumatriptan PRN - Outpatient follow up for chronic/comorbid conditions CV - Maintain MAP>65 - Atenolol and bumex held today for lower BPs, may restart at discharge Pulm - No active issues, some atelectasis on CXR, but no respiratory compromise ID - No active issues GI - NPO DCd, on CC diet and tolerating - Continue linzess, holding bowel regimen for now, as patient had multiple bowel movements since admission, may restart PRN Renal- - DC lópez - Lytes normalized - Lactic Acid 3.5>1.3 after IVF Heme - H&H and PLTs stable Endo - Drip off, BG <200, continue lispro SS with lantus - CC diet - Needs counseling on adherence to taking insulin and checking sugars - Check HgbA1c Musculsk - OOB to chair - PT/OT - Limit narcotics and sedating meds, encourage ambulation - SW consult placed for home planning in light of fall risk Wounds: none DVT prophylaxis: lovenox GI prophylaxis: PPI Central Line: none Arterial Line: none López Catheter: Discontinue Disposition: Patient requires Critical Care/ICU for glucose monitoring, now medically optimized for downgrade to floor Patient clinical status: Stable Code Status: Full code Total Critical Care time is 35 minutes
[2019-06-05] MEDS: HYDROmorphone TAB* 4 MG PO PRN (17:52)
[2019-06-05] MEDS: Atorvastatin* 10 MG TAB PO SCH (21:07)
[2019-06-05] MEDS: Mirtazapine TAB* 15 MG PO SCH (21:08)
[2019-06-05] MEDS: Enoxaparin(*) 40 MG/0.4 ML SYR SUBCUT SCH (21:10)
[2019-06-06] MEDS: Insulin LISPRO* 1 UNITS UNIT SUBCUT SCH ×6 (00:16→22:23)
[2019-06-06 06:39] LABS: ABS Eosinophils 0.1 10^3/ul (0-0.6); ABS Lymphocytes 2.8 10^3/ul (1.0-4.8); ABS Monocytes 0.6 10^3/ul (0-0.8); ABS Neutrophils 4.4 10^3/ul (1.5-7.7); Eosinophil % 1.1 %; Hematocrit 47 % (35-47); Hemoglobin 15.9 g/dL (12.0-16.0); Lymphocyte % 35.1 %; Mean Corpuscular HGB Conc 34 g/dL (31-36); Mean Corpuscular Hemoglobin 31 pg (27-31); Mean Corpuscular Volume 90 fL (80-97); Mean Platelet Volume 8.5 fL (7.4-10.4); Nucleated Red Blood Cells % 0.1; Platelet Count 180 10^3/uL (150-450); Red Blood Count 5.16 10^6 /uL (3.70-4.87); Red Cell Distribution Width 14 % (10-15)
[2019-06-06 06:57] LABS: BUN/Creatinine Ratio 9.1 (8-20); Calcium 8.5 mg/dL (8.6-10.3); EGFR African American 89.7 (>60); EGFR Non-African American 74.1 (>60); Magnesium 1.8 mg/dL (1.9-2.7); Potassium 3.3 mmol/L (3.5-5.0)
[2019-06-06] MEDS: CMCS:LINACLOTIDE 72 MCG CAP (NF) PO SCH (08:12)
[2019-06-06] MEDS: Bumetanide TAB* 2 MG PO SCH ×2 (08:13→17:17)
[2019-06-06] MEDS: Atenolol TAB* 25 MG PO SCH (08:14)
[2019-06-06] MEDS: Potassium Chlor TAB* 10 MEQ TAB.ER PO SCH (08:14)
[2019-06-06] MEDS: Gabapentin CAP(*) 100 MG PO SCH ×3 (08:14→20:23)
[2019-06-06] MEDS: Pantoprazole TAB * 40 MG TAB PO SCH (08:14)
[2019-06-06] MEDS ORDERED: Magnesium Oxide TAB* 400 MG PO ONE (09:54)
[2019-06-06] MEDS: HYDROmorphone TAB* 4 MG PO PRN ×2 (10:02→22:30)
[2019-06-06] MEDS ORDERED: Potassium Chlor TAB* 20 MEQ TAB.ER PO ONE ×2 (12:00)
[2019-06-06] MEDS: Insulin GLARGINE(*) 1 UNITS UNIT SUBCUT SCH (13:34)
[2019-06-06] MEDS: Baclofen TAB* 20 MG PO PRN ×2 (16:09→22:30)
[2019-06-06] MEDS: SUMAtriptan TAB* 100 MG PO PRN (16:09)
[2019-06-06] MEDS ORDERED: Diphenoxylat/Atrop 2.5-0.025M* 1 TAB PO PRN (19:05)
[2019-06-06] MEDS ORDERED: Diphenoxylat/Atrop 2.5-0.025M* 1 TAB PO ONE (19:07)
--- NOTE | 2019-06-06 19:08 | PN ---
Subjective Date of Service: 06/06/19 Interval History: Pt states some headache at times but not c/o migraine-type pain. Denies CP, palpitations, SOB, abdominal discomfort. Has been having multiple episodes of diarrhea. Denies any new or unusual foods, being around any known sick contacts. Objective Active Medications: Atenolol (Tenormin Tab*) 25 mg PO DAILY [facility] Last Admin: 06/06/19 08:14 Dose: 25 mg Atorvastatin Calcium (Lipitor*) 5 mg PO BEDTIME [facility] Last Admin: 06/05/19 21:07 Dose: 5 mg Baclofen (Lioresal Tab*) 20 mg PO QID PRN PRN Reason: PAIN Last Admin: 06/06/19 16:09 Dose: 20 mg Bumetanide (Bumex Tab*) 2 mg PO 0900,1800 [facility] Last Admin: 06/06/19 17:17 Dose: 2 mg Dextrose (D50w Syringe 50 Ml*) 12.5 gm IV PUSH .FOR FS < 60 - SS PRN PRN Reason: FS < 60 Enoxaparin Sodium (Lovenox(*)) 40 mg SUBCUT Q24H [facility] Last Admin: 06/05/19 21:10 Dose: 40 mg Gabapentin (Neurontin Cap(*)) 100 mg PO TID [facility] Last Admin: 06/06/19 13:33 Dose: 100 mg Hydromorphone HCl (Dilaudid Tab*) 4 mg PO Q6H PRN PRN Reason: PAIN - SEVERE Last Admin: 06/06/19 10:02 Dose: 4 mg Insulin Glargine (Lantus(*)) 50 units SUBCUT Q24H [facility] Last Admin: 06/06/19 13:34 Dose: 50 unit Insulin Human Lispro (Humalog*) 0 units SUBCUT ACHS [facility]; Protocol Last Admin: 06/06/19 17:16 Dose: 8 units Linaclotide (Linzess) 288 mcg PO DAILY@0730 [facility] Last Admin: 06/06/19 08:12 Dose: 288 mcg Mirtazapine (Remeron Tab*) 7.5 mg PO BEDTIME [facility] Last Admin: 06/05/19 21:08 Dose: 7.5 mg Pantoprazole Sodium (Protonix Tab*) 40 mg PO DAILY [facility] Last Admin: 06/06/19 08:14 Dose: 40 mg Polyethylene Glycol/Electrolytes (Miralax (17 Gm Dose Justin)) 17 gm PO DAILY PRN PRN Reason: CONSTIPATION Potassium Chloride (Klor Con Er Tab*) 10 meq PO BID [facility] Last Admin: 06/06/19 08:14 Dose: 10 meq Sumatriptan Succinate (Imitrex Tab*) 100 mg PO DAILY PRN PRN Reason: MIGRAINE HEADACHE Last Admin: 06/06/19 16:09 Dose: 100 mg Vital Signs - 8 hr 06/06/19 06/06/19 06/06/19 11:17 12:02 13:33 Temperature 98.2 F Pulse Rate 66 Respiratory 16 16 16 Rate Blood Pressure 121/65 (mmHg) O2 Sat by Pulse 96 Oximetry 06/06/19 06/06/19 06/06/19 16:00 16:11 17:17 Temperature 98.6 F Pulse Rate 73 Respiratory 18 16 Rate Blood Pressure 126/67 129/68 (mmHg) O2 Sat by Pulse 98 Oximetry Oxygen Devices in Use Now: None Appearance: sitting up in chair, NAD Eyes: No Scleral Icterus Ears/Nose/Mouth/Throat: Clear Oropharnyx Respiratory: Symmetrical Chest Expansion and Respiratory Effort, Clear to Auscultation Cardiovascular: - - HR with infrequent irregularity, S1/S2 present, no murmur/ rub/gallop Abdominal: - - normoactive BSX4, abdomen soft with tenderness to RUQ with palpation Extremities: No Edema Skin: - - appears dry and intact Neurological: Alert and Oriented x 3 Nutrition: Taking PO's Result Diagrams: 06/07/19 06:19 06/07/19 06:19 Additional Lab and Data: Abnormal Lab Results 06/05/19 06/05/19 06/06/19 15:23 19:48 05:52 WBC RBC Hgb Hct MCV MCH MCHC RDW Plt Count MPV Neut % (Auto) Lymph % (Auto) [place] % (Auto) Eos % (Auto) Baso % (Auto) Absolute Neuts (auto) Absolute Lymphs (auto) Absolute Monos (auto) Absolute Eos (auto) Absolute Basos (auto) Absolute Nucleated RBC Nucleated RBC % Sodium 138 Potassium 3.3 L Chloride 105 Carbon Dioxide 20 L Anion Gap 13 H BUN 7 Creatinine 0.77 Est GFR ( Amer) 89.7 Est GFR (Non-Af Amer) 74.1 BUN/Creatinine Ratio 9.1 Glucose 259 H POC Glucose (mg/dL) 345 H Hemoglobin A1c See comment H Calcium 8.5 L Magnesium 1.8 L 06/06/19 06/06/19 06/06/19 05:52 07:42 11:54 WBC 8.0 RBC 5.16 H Hgb 15.9 Hct 47 MCV 90 MCH 31 MCHC 34 RDW 14 Plt Count 180 MPV 8.5 Neut % (Auto) 55.4 Lymph % (Auto) 35.1 [place] % (Auto) 8.1 Eos % (Auto) 1.1 Baso % (Auto) 0.3 Absolute Neuts (auto) 4.4 Absolute Lymphs (auto) 2.8 Absolute Monos (auto) 0.6 Absolute Eos (auto) 0.1 Absolute Basos (auto) 0.0 Absolute Nucleated RBC 0.0 Nucleated RBC % 0.1 Sodium Potassium Chloride Carbon Dioxide Anion Gap BUN Creatinine Est GFR ( Amer) Est GFR (Non-Af Amer) BUN/Creatinine Ratio Glucose POC Glucose (mg/dL) 302 H 366 H Hemoglobin A1c Calcium Magnesium 06/06/19 16:14 WBC RBC Hgb Hct MCV MCH MCHC RDW Plt Count MPV Neut % (Auto) Lymph % (Auto) [place] % (Auto) Eos % (Auto) Baso % (Auto) Absolute Neuts (auto) Absolute Lymphs (auto) Absolute Monos (auto) Absolute Eos (auto) Absolute Basos (auto) Absolute Nucleated RBC Nucleated RBC % Sodium Potassium Chloride Carbon Dioxide Anion Gap BUN Creatinine Est GFR ( Amer) Est GFR (Non-Af Amer) BUN/Creatinine Ratio Glucose POC Glucose (mg/dL) 303 H Hemoglobin A1c Calcium Magnesium Microbiology and Other Data: Microbiology 06/06/19 11:43 Stool Gross Appearance - Final Stool C. difficile DNA Amplification - Final 027 Presumptive NEGATIVE Toxigenic C.diff NEGATIVE Assess/Plan/Problems-Billing Assessment: - Patient Problems (1) HHNC (hyperglycemic hyperosmolar nonketotic coma) Current Visit: Yes Status: Acute Code(s): E11.01 - TYPE 2 DIABETES MELLITUS WITH HYPEROSMOLARITY WITH COMA SNOMED Code(s): 506877365 Comment: Resolved after insulin gtt in ICU, was sent to floor with lispro SS - Start lantus 50units q24h as this is her degludec dose and does not require conversion, she denies taking the xultophy, need to obtain more clear medication record - Continue lispro SS - FS ACHS - Consistent card diet (2) Diarrhea Current Visit: Yes Status: Acute Code(s): R19.7 - DIARRHEA, UNSPECIFIED SNOMED Code(s): 28988176 Comment: Developed she believes after coming to the hospital. Denies any new or unusual foods, denies being around any known sick contacts. Denies nausea. Tenderness to RUQ with palpation. May be an infectious gastroenteritis. CDiff presumptive neg Awaiting final cultures Stop linaclotide as this is helps treat constipation Start lomotil X1 NOW and TID PRN Continue to monitor (3) Opioid dependence Current Visit: No Status: Acute Code(s): F11.20 - OPIOID DEPENDENCE, UNCOMPLICATED SNOMED Code(s): 30834767 Comment: For chronic pain. Home regimen was edited while in ICU. Will continue with her current regimen of dilaudid 4mg q6hr, she seems to be doing well She should follow-up about this with her PCP (4) Hypertension Current Visit: No Status: Chronic Code(s): I10 - ESSENTIAL (PRIMARY) HYPERTENSION SNOMED Code(s): 05228688 Comment: BPs normalizing - Continue atenolol, bumex (5) Migraine Current Visit: No Status: Chronic Code(s): G43.909 - MIGRAINE, UNSP, NOT INTRACTABLE, WITHOUT STATUS MIGRAINOSUS SNOMED Code(s): 16406226 Comment: Not c/o migraine Continue sumatriptan PRN (6) DVT prophylaxis Current Visit: No Status: Chronic Code(s): Z29.9 - ENCOUNTER FOR PROPHYLACTIC MEASURES, UNSPECIFIED SNOMED Code(s): 628826843 Comment: lovenox sq (7) Full code status Current Visit: No Status: Chronic Code(s): Z78.9 - OTHER SPECIFIED HEALTH STATUS SNOMED Code(s): 150863522 Attending: Bel Patel
[2019-06-06] MEDS: Atorvastatin* 10 MG TAB PO SCH (20:23)
[2019-06-06] MEDS: Mirtazapine TAB* 15 MG PO SCH (20:24)
[2019-06-06] MEDS: Enoxaparin(*) 40 MG/0.4 ML SYR SUBCUT SCH (20:24)
[2019-06-06] MEDS: Potassium Chloride* LIQUID 20 MEQ/15 ML UDC PO SCH (20:25)
[2019-06-07 07:22] LABS: Calcium 9.1 mg/dL (8.6-10.3); Magnesium 1.4 mg/dL (1.9-2.7); Potassium 3.6 mmol/L (3.5-5.0)
[2019-06-07 07:28] LABS: BUN/Creatinine Ratio 15.5 (8-20); EGFR African American 68.7 (>60); EGFR Non-African American 56.8 (>60)
[2019-06-07 07:29] LABS: ABS Eosinophils 0.2 10^3/ul (0-0.6); ABS Lymphocytes 3.9 10^3/ul (1.0-4.8); ABS Monocytes 1.1 10^3/ul (0-0.8); ABS Neutrophils 4.1 10^3/ul (1.5-7.7); Eosinophil % 1.7 %; Hematocrit 49 % (35-47); Hemoglobin 16.7 g/dL (12.0-16.0); Lymphocyte % 42.1 %; Mean Corpuscular HGB Conc 34 g/dL (31-36); Mean Corpuscular Hemoglobin 31 pg (27-31); Mean Corpuscular Volume 92 fL (80-97); Mean Platelet Volume 8.6 fL (7.4-10.4); Platelet Count 212 10^3/uL (150-450); Red Blood Count 5.37 10^6 /uL (3.70-4.87); Red Cell Distribution Width 14 % (10-15); White Blood Count 9.4 10^3/uL (3.5-10.8)
[2019-06-07] MEDS: Gabapentin CAP(*) 100 MG PO SCH ×3 (07:53→22:20)
[2019-06-07] MEDS: Bumetanide TAB* 2 MG PO SCH ×2 (07:54→17:21)
[2019-06-07] MEDS: Atenolol TAB* 25 MG PO SCH (07:54)
[2019-06-07] MEDS: Pantoprazole TAB * 40 MG TAB PO SCH (07:54)
[2019-06-07] MEDS: HYDROmorphone TAB* 4 MG PO PRN ×3 (07:54→22:19)
[2019-06-07] MEDS: Potassium Chloride* LIQUID 20 MEQ/15 ML UDC PO SCH ×2 (07:55→22:23)
[2019-06-07] MEDS: Insulin LISPRO* 1 UNITS UNIT SUBCUT SCH ×4 (07:55→22:05)
[2019-06-07] MEDS ORDERED: Insulin LISPRO* 1 UNITS UNIT SUBCUT ONE ×2 (08:00→11:06)
[2019-06-07] MEDS ORDERED: Dextrose 50% Syringe 50 ML* 25 GM/50 ML SYRINGE IV PUSH PRN (11:06)
[2019-06-07] MEDS: Cetirizine* 10 MG TAB PO SCH (11:29)
[2019-06-07] MEDS: EMPAGLIFLOZIN 10 MG PO SCH ×2 (11:32→13:43)
[2019-06-07] MEDS: Insulin GLARGINE(*) 1 UNITS UNIT SUBCUT SCH (13:42)
[2019-06-07] MEDS: SUMAtriptan TAB* 100 MG PO PRN (13:50)
[2019-06-07] MEDS ORDERED: Magnesium Sulfate IV* 3 GM in NS 0.9% 100 ML* 100 ML IVPB ONE (14:38)
--- NOTE | 2019-06-07 17:33 | PN ---
Subjective Date of Service: 06/07/19 Interval History: Pt denies any CP, SOB. C/o tenderness to L and R posterior rib cage areas in the thoracic region. Also with abdominal pain to upper abdomen but flinches during palpation to all areas. Nauseous at times. She continues to c/o a pain to her R hand and throughout her RUE all the way to her shoulder. She thinks something is broken. States that her diarrhea stopped yesterday and now feels constipated, was passing flatus earlier per her report. Objective Active Medications: Atenolol (Tenormin Tab*) 25 mg PO DAILY [facility] Last Admin: 06/07/19 07:54 Dose: 25 mg Atorvastatin Calcium (Lipitor*) 5 mg PO BEDTIME [facility] Last Admin: 06/06/19 20:23 Dose: 5 mg Baclofen (Lioresal Tab*) 20 mg PO QID PRN PRN Reason: PAIN Last Admin: 06/06/19 22:30 Dose: 20 mg Bumetanide (Bumex Tab*) 2 mg PO 0900,1800 [facility] Last Admin: 06/07/19 17:21 Dose: 2 mg Cetirizine HCl (Zyrtec*) 10 mg PO DAILY [facility] Last Admin: 06/07/19 11:29 Dose: 10 mg Dextrose (D50w Syringe 50 Ml*) 12.5 gm IV PUSH .FOR FS < 60 - SS PRN PRN Reason: FS < 60 Diphenoxylate HCl/Atropine (Lomotil Tab*) 2 tab PO QID PRN PRN Reason: DIARRHEA Empagliflozin (Jardiance (Nf)) 10 mg PO DAILY [facility] Last Admin: 06/07/19 13:43 Dose: 10 mg Enoxaparin Sodium (Lovenox(*)) 40 mg SUBCUT Q24H [facility] Last Admin: 06/06/19 20:24 Dose: 40 mg Gabapentin (Neurontin Cap(*)) 100 mg PO TID [facility] Last Admin: 06/07/19 13:42 Dose: 100 mg Hydromorphone HCl (Dilaudid Tab*) 4 mg PO Q6H PRN PRN Reason: PAIN - SEVERE Last Admin: 06/07/19 13:50 Dose: 4 mg Insulin Glargine (Lantus(*)) 50 units SUBCUT Q24H [facility] Last Admin: 06/07/19 13:42 Dose: 50 unit Insulin Human Lispro (Humalog*) 0 units SUBCUT ACHS [facility]; Protocol Last Admin: 06/07/19 17:21 Dose: 1 units Mirtazapine (Remeron Tab*) 7.5 mg PO BEDTIME [facility] Last Admin: 06/06/19 20:24 Dose: 7.5 mg Pantoprazole Sodium (Protonix Tab*) 40 mg PO DAILY [facility] Last Admin: 06/07/19 07:54 Dose: 40 mg Polyethylene Glycol/Electrolytes (Miralax (17 Gm Dose Justin)) 17 gm PO DAILY PRN PRN Reason: CONSTIPATION Last Admin: 06/07/19 07:55 Dose: 17 gm Potassium Chloride (Potassium Chloride Liquid) 10 meq PO BID [facility] Last Admin: 06/07/19 07:55 Dose: 10 meq Sumatriptan Succinate (Imitrex Tab*) 100 mg PO DAILY PRN PRN Reason: MIGRAINE HEADACHE Last Admin: 06/07/19 13:50 Dose: 100 mg Vital Signs - 8 hr 06/07/19 06/07/19 06/07/19 10:00 11:31 13:42 Temperature 97.8 F Pulse Rate 70 Respiratory 20 20 20 Rate Blood Pressure 107/69 (mmHg) O2 Sat by Pulse 95 Oximetry 06/07/19 06/07/19 06/07/19 13:50 15:19 16:15 Temperature 98.3 F Pulse Rate 69 Respiratory 20 16 18 Rate Blood Pressure 113/60 (mmHg) O2 Sat by Pulse 95 Oximetry Oxygen Devices in Use Now: None Appearance: sitting up in bed, NAD Eyes: No Scleral Icterus, - - PERRL Ears/Nose/Mouth/Throat: Clear Oropharnyx Respiratory: Symmetrical Chest Expansion and Respiratory Effort, Clear to Auscultation Cardiovascular: RRR - no irregularity Abdominal: - - normoactive BSX4, abdomen very slightly distended, tender to upper abdomen with palpation and winces with palpation throughout Extremities: No Edema Skin: No Rash or Ulcers Neurological: Alert and Oriented x 3 Nutrition: Taking PO's Result Diagrams: 06/08/19 07:40 06/08/19 07:40 Additional Lab and Data: Abnormal Lab Results 06/05/19 06/05/19 06/06/19 15:23 19:48 05:52 WBC RBC Hgb Hct MCV MCH MCHC RDW Plt Count MPV Neut % (Auto) Lymph % (Auto) [facility] % (Auto) Eos % (Auto) Baso % (Auto) Absolute Neuts (auto) Absolute Lymphs (auto) Absolute Monos (auto) Absolute Eos (auto) Absolute Basos (auto) Absolute Nucleated RBC Nucleated RBC % Sodium 138 Potassium 3.3 L Chloride 105 Carbon Dioxide 20 L Anion Gap 13 H BUN 7 Creatinine 0.77 Est GFR ( Amer) 89.7 Est GFR (Non-Af Amer) 74.1 BUN/Creatinine Ratio 9.1 Glucose 259 H POC Glucose (mg/dL) 345 H Hemoglobin A1c See comment H Calcium 8.5 L Magnesium 1.8 L 06/06/19 06/06/19 06/06/19 05:52 07:42 11:54 WBC 8.0 RBC 5.16 H Hgb 15.9 Hct 47 MCV 90 MCH 31 MCHC 34 RDW 14 Plt Count 180 MPV 8.5 Neut % (Auto) 55.4 Lymph % (Auto) 35.1 [facility] % (Auto) 8.1 Eos % (Auto) 1.1 Baso % (Auto) 0.3 Absolute Neuts (auto) 4.4 Absolute Lymphs (auto) 2.8 Absolute Monos (auto) 0.6 Absolute Eos (auto) 0.1 Absolute Basos (auto) 0.0 Absolute Nucleated RBC 0.0 Nucleated RBC % 0.1 Sodium Potassium Chloride Carbon Dioxide Anion Gap BUN Creatinine Est GFR ( Amer) Est GFR (Non-Af Amer) BUN/Creatinine Ratio Glucose POC Glucose (mg/dL) 302 H 366 H Hemoglobin A1c Calcium Magnesium 06/06/19 16:14 WBC RBC Hgb Hct MCV MCH MCHC RDW Plt Count MPV Neut % (Auto) Lymph % (Auto) [facility] % (Auto) Eos % (Auto) Baso % (Auto) Absolute Neuts (auto) Absolute Lymphs (auto) Absolute Monos (auto) Absolute Eos (auto) Absolute Basos (auto) Absolute Nucleated RBC Nucleated RBC % Sodium Potassium Chloride Carbon Dioxide Anion Gap BUN Creatinine Est GFR ( Amer) Est GFR (Non-Af Amer) BUN/Creatinine Ratio Glucose POC Glucose (mg/dL) 303 H Hemoglobin A1c Calcium Magnesium Abnormal Lab Results 06/05/19 06/06/19 06/07/19 15:23 20:22 06:19 WBC 9.4 RBC 5.37 H Hgb 16.7 H Hct 49 H MCV 92 MCH 31 MCHC 34 RDW 14 Plt Count 212 MPV 8.6 Neut % (Auto) 44.2 Lymph % (Auto) 42.1 [facility] % (Auto) 11.7 Eos % (Auto) 1.7 Baso % (Auto) 0.3 Absolute Neuts (auto) 4.1 Absolute Lymphs (auto) 3.9 Absolute Monos (auto) 1.1 H Absolute Eos (auto) 0.2 Absolute Basos (auto) 0.0 Absolute Nucleated RBC 0.0 Nucleated RBC % 0.0 Sodium Potassium Chloride Carbon Dioxide Anion Gap BUN Creatinine Est GFR ( Amer) Est GFR (Non-Af Amer) BUN/Creatinine Ratio Glucose POC Glucose (mg/dL) 228 H Glucose Meter Confirm Hemoglobin A1c 18.0 H Calcium Magnesium 06/07/19 06/07/19 06/07/19 06:19 10:30 10:39 WBC RBC Hgb Hct MCV MCH MCHC RDW Plt Count MPV Neut % (Auto) Lymph % (Auto) [facility] % (Auto) Eos % (Auto) Baso % (Auto) Absolute Neuts (auto) Absolute Lymphs (auto) Absolute Monos (auto) Absolute Eos (auto) Absolute Basos (auto) Absolute Nucleated RBC Nucleated RBC % Sodium 132 L Potassium 3.6 Chloride 99 L Carbon Dioxide 23 Anion Gap 10 BUN 15 Creatinine 0.97 H Est GFR ( Amer) 68.7 Est GFR (Non-Af Amer) 56.8 BUN/Creatinine Ratio 15.5 Glucose 514 H* POC Glucose (mg/dL) > 444 H* Glucose Meter Confirm 451 H Hemoglobin A1c Calcium 9.1 Magnesium 1.4 L 06/07/19 06/07/19 06/07/19 12:38 15:33 17:09 WBC RBC Hgb Hct MCV MCH MCHC RDW Plt Count MPV Neut % (Auto) Lymph % (Auto) [facility] % (Auto) Eos % (Auto) Baso % (Auto) Absolute Neuts (auto) Absolute Lymphs (auto) Absolute Monos (auto) Absolute Eos (auto) Absolute Basos (auto) Absolute Nucleated RBC Nucleated RBC % Sodium Potassium Chloride Carbon Dioxide Anion Gap BUN Creatinine Est GFR ( Amer) Est GFR (Non-Af Amer) BUN/Creatinine Ratio Glucose POC Glucose (mg/dL) 376 H 280 H 140 H Glucose Meter Confirm Hemoglobin A1c Calcium Magnesium Microbiology and Other Data: Microbiology 06/06/19 11:43 Stool Gross Appearance - Final Stool C. difficile DNA Amplification - Final 027 Presumptive NEGATIVE Toxigenic C.diff NEGATIVE Assess/Plan/Problems-Billing Assessment: - Patient Problems (1) HHNC (hyperglycemic hyperosmolar nonketotic coma) Current Visit: Yes Status: Acute Code(s): E11.01 - TYPE 2 DIABETES MELLITUS WITH HYPEROSMOLARITY WITH COMA SNOMED Code(s): 726015714 Comment: Resolved after insulin gtt in ICU, was sent to floor with lispro SS. Has been significantly hyperglycemic today. Glucose 514@0619, 451@1039, 376@ 1238, 280@1533, 140@1709. Prior med rec from office has been obtained. Do not see metformin on this list. - Increase lantus to 60units q24h - Continue lispro SS - Restarted Jardiance 06/06 - FS ACHS - Consistent carb diet (2) Diarrhea Current Visit: Yes Status: Acute Code(s): R19.7 - DIARRHEA, UNSPECIFIED SNOMED Code(s): 95348967 Comment: Resolved (3) Opioid dependence Current Visit: No Status: Acute Code(s): F11.20 - OPIOID DEPENDENCE, UNCOMPLICATED SNOMED Code(s): 66578445 Comment: For chronic pain. Home regimen was edited while in ICU. Considering her baseline narcotic use and the pain that she is c/o with seemingly negative workup it is reasonable to increase current dose closer to her baseline and see if this helps. Last rx outpatient dilaudid 8mg PO q4-6hr PRN MDD 5 tabs per day - increase dilaudid to 6mg PO q6hr PRN - She should follow-up about this with her PCP (4) Hypertension Current Visit: No Status: Chronic Code(s): I10 - ESSENTIAL (PRIMARY) HYPERTENSION SNOMED Code(s): 30888194 Comment: BPs WNL - Continue atenolol, bumex (5) Migraine Current Visit: No Status: Chronic Code(s): G43.909 - MIGRAINE, UNSP, NOT INTRACTABLE, WITHOUT STATUS MIGRAINOSUS SNOMED Code(s): 55546576 Comment: Not c/o migraine at this time - Continue sumatriptan PRN (6) DVT prophylaxis Current Visit: No Status: Chronic Code(s): Z29.9 - ENCOUNTER FOR PROPHYLACTIC MEASURES, UNSPECIFIED SNOMED Code(s): 934828350 Comment: lovenox sq (7) Full code status Current Visit: No Status: Chronic Code(s): Z78.9 - OTHER SPECIFIED HEALTH STATUS SNOMED Code(s): 440871262 Attending: Bel Patel
[2019-06-07] MEDS ORDERED: Insulin GLARGINE(*) 1 UNITS UNIT SUBCUT ONE (19:30)
[2019-06-07] MEDS: Baclofen TAB* 20 MG PO PRN (22:19)
[2019-06-07] MEDS: Atorvastatin* 10 MG TAB PO SCH (22:21)
[2019-06-07] MEDS: Enoxaparin(*) 40 MG/0.4 ML SYR SUBCUT SCH (22:22)
[2019-06-08] MEDS: Magnesium Hydroxide LIQ* 30 ML UDC PO PRN ×2 (00:24→20:48)
[2019-06-08] MEDS: Mirtazapine TAB* 15 MG PO SCH ×2 (00:25→20:48)
[2019-06-08] MEDS: HYDROmorphone TAB* 4 MG PO PRN ×3 (05:31→20:47)
[2019-06-08 08:17] LABS: Hematocrit 51 % (35-47); Hemoglobin 17.7 g/dL (12.0-16.0); Mean Corpuscular HGB Conc 35 g/dL (31-36); Mean Corpuscular Hemoglobin 31 pg (27-31); Mean Corpuscular Volume 89 fL (80-97); Platelet Count 242 10^3/uL (150-450); Red Blood Count 5.75 10^6 /uL (3.70-4.87); Red Cell Distribution Width 14 % (10-15); White Blood Count 9.8 10^3/uL (3.5-10.8)
[2019-06-08] MEDS: Potassium Chloride* LIQUID 20 MEQ/15 ML UDC PO SCH ×2 (08:17→20:48)
[2019-06-08] MEDS: Atenolol TAB* 25 MG PO SCH (08:19)
[2019-06-08] MEDS: Cetirizine* 10 MG TAB PO SCH (08:19)
[2019-06-08] MEDS: Bumetanide TAB* 2 MG PO SCH ×2 (08:19→17:44)
[2019-06-08] MEDS: Pantoprazole TAB * 40 MG TAB PO SCH (08:19)
[2019-06-08] MEDS: Gabapentin CAP(*) 100 MG PO SCH ×3 (08:20→20:46)
[2019-06-08] MEDS: Insulin LISPRO* 1 UNITS UNIT SUBCUT SCH ×4 (08:21→22:03)
[2019-06-08 08:32] LABS: BUN/Creatinine Ratio 20.2 (8-20); Calcium 9.6 mg/dL (8.6-10.3); EGFR African American 67.1 (>60); EGFR Non-African American 55.5 (>60); Magnesium 2.7 mg/dL (1.9-2.7); Potassium 3.4 mmol/L (3.5-5.0)
[2019-06-08 08:50] LABS: ABS Eosinophils 0.3 10^3/ul (0-0.6); ABS Lymphocytes 5.4 10^3/ul (1.0-4.8); ABS Neutrophils 3.1 10^3/ul (1.5-7.7); Eosinophil % 2.8 %; Lymphocyte % 54.9 %; Nucleated Red Blood Cells % 0.1
[2019-06-08] MEDS: EMPAGLIFLOZIN 10 MG PO SCH (10:51)
[2019-06-08] MEDS: SUMAtriptan TAB* 100 MG PO PRN (11:49)
[2019-06-08] MEDS: Baclofen TAB* 20 MG PO PRN (12:54)
[2019-06-08] MEDS: Insulin GLARGINE(*) 1 UNITS UNIT SUBCUT SCH (12:55)
--- NOTE | 2019-06-08 16:57 | PN ---
Subjective Date of Service: 06/08/19 Interval History: States that her pain is better today, still with some soreness but improved. Denies any PARKER, CP, SOB, fevers, unusual numbness/tingling. Was having blurred vision at the beginning of her illness but she states that it is improving well. Is c/o new dry cough that started last night, she states that she had difficulty sleeping because of it. Objective Active Medications: Atenolol (Tenormin Tab*) 25 mg PO DAILY [facility] Last Admin: 06/08/19 08:19 Dose: 25 mg Atorvastatin Calcium (Lipitor*) 5 mg PO BEDTIME [facility] Last Admin: 06/07/19 22:21 Dose: 5 mg Baclofen (Lioresal Tab*) 20 mg PO QID PRN PRN Reason: PAIN Last Admin: 06/08/19 12:54 Dose: 20 mg Bumetanide (Bumex Tab*) 2 mg PO 0900,1800 [facility] Last Admin: 06/08/19 08:19 Dose: 2 mg Cetirizine HCl (Zyrtec*) 10 mg PO DAILY [facility] Last Admin: 06/08/19 08:19 Dose: 10 mg Dextrose (D50w Syringe 50 Ml*) 12.5 gm IV PUSH .FOR FS < 60 - SS PRN PRN Reason: FS < 60 Diphenoxylate HCl/Atropine (Lomotil Tab*) 2 tab PO QID PRN PRN Reason: DIARRHEA Empagliflozin (Jardiance (Nf)) 10 mg PO DAILY [facility] Last Admin: 06/08/19 10:51 Dose: Not Given Enoxaparin Sodium (Lovenox(*)) 40 mg SUBCUT Q24H [facility] Last Admin: 06/07/19 22:22 Dose: 40 mg Gabapentin (Neurontin Cap(*)) 100 mg PO TID [facility] Last Admin: 06/08/19 15:58 Dose: 100 mg Hydromorphone HCl (Dilaudid Tab*) 6 mg PO Q6H PRN PRN Reason: PAIN - SEVERE Last Admin: 06/08/19 11:46 Dose: 6 mg Insulin Glargine (Lantus(*)) 60 units SUBCUT Q24H [facility] Last Admin: 06/08/19 12:55 Dose: 60 units Insulin Human Lispro (Humalog*) 0 units SUBCUT ACHS [facility]; Protocol Last Admin: 06/08/19 11:46 Dose: 8 units Magnesium Hydroxide (Milk Of Magnesia Liq*) 30 ml PO Q6H PRN PRN Reason: CONSTIPATION Last Admin: 06/08/19 00:24 Dose: 30 ml Metformin HCl (Glucophage*) 1,000 mg PO BID [facility] Mirtazapine (Remeron Tab*) 7.5 mg PO BEDTIME [facility] Last Admin: 06/08/19 00:25 Dose: 7.5 mg Pantoprazole Sodium (Protonix Tab*) 40 mg PO DAILY [facility] Last Admin: 06/08/19 08:19 Dose: 40 mg Potassium Chloride (Potassium Chloride Liquid) 10 meq PO BID [facility] Last Admin: 06/08/19 08:17 Dose: 10 meq Sumatriptan Succinate (Imitrex Tab*) 100 mg PO DAILY PRN PRN Reason: MIGRAINE HEADACHE Last Admin: 06/08/19 11:49 Dose: 100 mg Vital Signs - 8 hr 06/08/19 06/08/19 06/08/19 11:46 12:00 15:57 Temperature 97.8 F Pulse Rate 67 Respiratory 20 12 18 Rate Blood Pressure 127/77 (mmHg) O2 Sat by Pulse 94 Oximetry 06/08/19 06/08/19 15:58 16:00 Temperature 97.3 F Pulse Rate 71 Respiratory 18 18 Rate Blood Pressure 109/56 (mmHg) O2 Sat by Pulse 94 Oximetry Oxygen Devices in Use Now: None Appearance: laying in bed, NAD Eyes: No Scleral Icterus Ears/Nose/Mouth/Throat: Clear Oropharnyx Respiratory: Symmetrical Chest Expansion and Respiratory Effort, Clear to Auscultation Cardiovascular: RRR Abdominal: NL Sounds; No Tenderness; No Distention Extremities: No Edema Skin: No Rash or Ulcers Neurological: Alert and Oriented x 3 Nutrition: Taking PO's Result Diagrams: 06/08/19 07:40 06/08/19 07:40 Additional Lab and Data: Abnormal Lab Results 06/05/19 06/05/19 06/06/19 15:23 19:48 05:52 WBC RBC Hgb Hct MCV MCH MCHC RDW Plt Count MPV Neut % (Auto) Lymph % (Auto) [facility] % (Auto) Eos % (Auto) Baso % (Auto) Absolute Neuts (auto) Absolute Lymphs (auto) Absolute Monos (auto) Absolute Eos (auto) Absolute Basos (auto) Absolute Nucleated RBC Nucleated RBC % Sodium 138 Potassium 3.3 L Chloride 105 Carbon Dioxide 20 L Anion Gap 13 H BUN 7 Creatinine 0.77 Est GFR ( Amer) 89.7 Est GFR (Non-Af Amer) 74.1 BUN/Creatinine Ratio 9.1 Glucose 259 H POC Glucose (mg/dL) 345 H Hemoglobin A1c See comment H Calcium 8.5 L Magnesium 1.8 L 06/06/19 06/06/19 06/06/19 05:52 07:42 11:54 WBC 8.0 RBC 5.16 H Hgb 15.9 Hct 47 MCV 90 MCH 31 MCHC 34 RDW 14 Plt Count 180 MPV 8.5 Neut % (Auto) 55.4 Lymph % (Auto) 35.1 [facility] % (Auto) 8.1 Eos % (Auto) 1.1 Baso % (Auto) 0.3 Absolute Neuts (auto) 4.4 Absolute Lymphs (auto) 2.8 Absolute Monos (auto) 0.6 Absolute Eos (auto) 0.1 Absolute Basos (auto) 0.0 Absolute Nucleated RBC 0.0 Nucleated RBC % 0.1 Sodium Potassium Chloride Carbon Dioxide Anion Gap BUN Creatinine Est GFR ( Amer) Est GFR (Non-Af Amer) BUN/Creatinine Ratio Glucose POC Glucose (mg/dL) 302 H 366 H Hemoglobin A1c Calcium Magnesium 06/06/19 16:14 WBC RBC Hgb Hct MCV MCH MCHC RDW Plt Count MPV Neut % (Auto) Lymph % (Auto) [facility] % (Auto) Eos % (Auto) Baso % (Auto) Absolute Neuts (auto) Absolute Lymphs (auto) Absolute Monos (auto) Absolute Eos (auto) Absolute Basos (auto) Absolute Nucleated RBC Nucleated RBC % Sodium Potassium Chloride Carbon Dioxide Anion Gap BUN Creatinine Est GFR ( Amer) Est GFR (Non-Af Amer) BUN/Creatinine Ratio Glucose POC Glucose (mg/dL) 303 H Hemoglobin A1c Calcium Magnesium Abnormal Lab Results 06/05/19 06/06/19 06/07/19 15:23 20:22 06:19 WBC 9.4 RBC 5.37 H Hgb 16.7 H Hct 49 H MCV 92 MCH 31 MCHC 34 RDW 14 Plt Count 212 MPV 8.6 Neut % (Auto) 44.2 Lymph % (Auto) 42.1 [facility] % (Auto) 11.7 Eos % (Auto) 1.7 Baso % (Auto) 0.3 Absolute Neuts (auto) 4.1 Absolute Lymphs (auto) 3.9 Absolute Monos (auto) 1.1 H Absolute Eos (auto) 0.2 Absolute Basos (auto) 0.0 Absolute Nucleated RBC 0.0 Nucleated RBC % 0.0 Sodium Potassium Chloride Carbon Dioxide Anion Gap BUN Creatinine Est GFR ( Amer) Est GFR (Non-Af Amer) BUN/Creatinine Ratio Glucose POC Glucose (mg/dL) 228 H Glucose Meter Confirm Hemoglobin A1c 18.0 H Calcium Magnesium 06/07/19 06/07/19 06/07/19 06:19 10:30 10:39 WBC RBC Hgb Hct MCV MCH MCHC RDW Plt Count MPV Neut % (Auto) Lymph % (Auto) [facility] % (Auto) Eos % (Auto) Baso % (Auto) Absolute Neuts (auto) Absolute Lymphs (auto) Absolute Monos (auto) Absolute Eos (auto) Absolute Basos (auto) Absolute Nucleated RBC Nucleated RBC % Sodium 132 L Potassium 3.6 Chloride 99 L Carbon Dioxide 23 Anion Gap 10 BUN 15 Creatinine 0.97 H Est GFR ( Amer) 68.7 Est GFR (Non-Af Amer) 56.8 BUN/Creatinine Ratio 15.5 Glucose 514 H* POC Glucose (mg/dL) > 444 H* Glucose Meter Confirm 451 H Hemoglobin A1c Calcium 9.1 Magnesium 1.4 L 06/07/19 06/07/19 06/07/19 12:38 15:33 17:09 WBC RBC Hgb Hct MCV MCH MCHC RDW Plt Count MPV Neut % (Auto) Lymph % (Auto) [facility] % (Auto) Eos % (Auto) Baso % (Auto) Absolute Neuts (auto) Absolute Lymphs (auto) Absolute Monos (auto) Absolute Eos (auto) Absolute Basos (auto) Absolute Nucleated RBC Nucleated RBC % Sodium Potassium Chloride Carbon Dioxide Anion Gap BUN Creatinine Est GFR ( Amer) Est GFR (Non-Af Amer) BUN/Creatinine Ratio Glucose POC Glucose (mg/dL) 376 H 280 H 140 H Glucose Meter Confirm Hemoglobin A1c Calcium Magnesium Microbiology and Other Data: Microbiology 06/06/19 11:43 Stool Gross Appearance - Final Stool C. difficile DNA Amplification - Final 027 Presumptive NEGATIVE Toxigenic C.diff NEGATIVE Assess/Plan/Problems-Billing Assessment: - Patient Problems (1) HHNC (hyperglycemic hyperosmolar nonketotic coma) Current Visit: Yes Status: Acute Code(s): E11.01 - TYPE 2 DIABETES MELLITUS WITH HYPEROSMOLARITY WITH COMA SNOMED Code(s): 935062464 Comment: Resolved after insulin gtt in ICU, was sent to floor with lispro SS. Has been significantly hyperglycemic today. 06/06 Glucose 514@0619, 451@1039 , 376@1238, 280@1533, 140@1709. Prior med rec from office has been obtained. Still seem to be some discrepancies with what she takes per her report and her own list. Better control today. - Continue lantus 60units q24h - Continue lispro SS - Restarted Jardiance 06/06 - Restarting Metformin 06/07 p.m. - FS ACHS - Consistent carb diet (2) Cough Current Visit: Yes Status: Acute Code(s): R05 - COUGH SNOMED Code(s): 00815839 Comment: C/o new dry cough. No ST, SOB, fevers. Considering she has significant co-morbidities, her age, her stay in the ICU, it is very reasonable to test for COVID. - COVID-19 PCR ordered (3) Diarrhea Current Visit: Yes Status: Acute Code(s): R19.7 - DIARRHEA, UNSPECIFIED SNOMED Code(s): 91756067 Comment: Resolved (4) Opioid dependence Current Visit: No Status: Acute Code(s): F11.20 - OPIOID DEPENDENCE, UNCOMPLICATED SNOMED Code(s): 55452709 Comment: For chronic pain. Home regimen was edited while in ICU. Pain is improved and pt seemingly doing well. Last rx outpatient dilaudid 8mg PO q4-6hr PRN MDD 5 tabs per day - Continue dilaudid to 6mg PO q6hr PRN - She should follow-up about this with her PCP (5) Hypertension Current Visit: No Status: Chronic Code(s): I10 - ESSENTIAL (PRIMARY) HYPERTENSION SNOMED Code(s): 97758332 Comment: BPs WNL - Continue atenolol, bumex (6) Migraine Current Visit: No Status: Chronic Code(s): G43.909 - MIGRAINE, UNSP, NOT INTRACTABLE, WITHOUT STATUS MIGRAINOSUS SNOMED Code(s): 60504265 Comment: Not c/o migraine at this time - Continue sumatriptan PRN (7) DVT prophylaxis Current Visit: No Status: Chronic Code(s): Z29.9 - ENCOUNTER FOR PROPHYLACTIC MEASURES, UNSPECIFIED SNOMED Code(s): 164362235 Comment: lovenox sq (8) Full code status Current Visit: No Status: Chronic Code(s): Z78.9 - OTHER SPECIFIED HEALTH STATUS SNOMED Code(s): 841858259 Attending: Bel Patel
[2019-06-08] MEDS: metFORMIN* 500 MG TAB PO SCH (20:46)
[2019-06-08] MEDS: Atorvastatin* 10 MG TAB PO SCH (20:47)
[2019-06-08] MEDS: Enoxaparin(*) 40 MG/0.4 ML SYR SUBCUT SCH (20:48)
[2019-06-09 07:25] LABS: Hematocrit 52 % (35-47); Hemoglobin 17.8 g/dL (12.0-16.0); Mean Corpuscular HGB Conc 35 g/dL (31-36); Mean Corpuscular Hemoglobin 31 pg (27-31); Mean Corpuscular Volume 90 fL (80-97); Mean Platelet Volume 8.4 fL (7.4-10.4); Platelet Count 228 10^3/uL (150-450); Red Cell Distribution Width 14 % (10-15); White Blood Count 10.7 10^3/uL (3.5-10.8)
[2019-06-09 07:39] LABS: Calcium 9.6 mg/dL (8.6-10.3)
[2019-06-09 08:36] LABS: BUN/Creatinine Ratio 27.5 (8-20); EGFR African American 64.8 (>60); EGFR Non-African American 53.6 (>60); Potassium 4.1 mmol/L (3.5-5.0)
[2019-06-09 08:40] LABS: ABS Basophils 0.1 10^3/ul (0-0.2); ABS Eosinophils 0.3 10^3/ul (0-0.6); ABS Lymphocytes 6.1 10^3/ul (1.0-4.8); ABS Neutrophils 3.2 10^3/ul (1.5-7.7); Eosinophil % 2.7 %; Lymphocyte % 56.8 %
[2019-06-09] MEDS: EMPAGLIFLOZIN 10 MG PO SCH (08:42)
[2019-06-09] MEDS: Potassium Chloride* LIQUID 20 MEQ/15 ML UDC PO SCH ×2 (08:46→21:58)
[2019-06-09] MEDS: Bumetanide TAB* 2 MG PO SCH (08:47)
[2019-06-09] MEDS: metFORMIN* 500 MG TAB PO SCH ×2 (08:47→22:00)
[2019-06-09] MEDS: Pantoprazole TAB * 40 MG TAB PO SCH (08:47)
[2019-06-09] MEDS: Atenolol TAB* 25 MG PO SCH (08:47)
[2019-06-09] MEDS: Cetirizine* 10 MG TAB PO SCH (08:47)
[2019-06-09] MEDS: Gabapentin CAP(*) 100 MG PO SCH ×3 (08:48→22:00)
[2019-06-09] MEDS: HYDROmorphone TAB* 4 MG PO PRN ×3 (08:48→21:58)
[2019-06-09] MEDS: Magnesium Hydroxide LIQ* 30 ML UDC PO PRN ×2 (08:49→17:04)
[2019-06-09] MEDS: Insulin LISPRO* 1 UNITS UNIT SUBCUT SCH ×4 (10:03→22:03)
[2019-06-09] MEDS ORDERED: NS 0.9% 500 ML* 500 ML IV ONE (11:59)
[2019-06-09] MEDS: Insulin GLARGINE(*) 1 UNITS UNIT SUBCUT SCH (12:50)
[2019-06-09] MEDS: NS 0.9% 1000 ML** 1,000 ML IV SCH (12:51)
--- NOTE | 2019-06-09 15:26 | PN ---
Subjective Date of Service: 06/09/19 Interval History: Per care management pt refused PT earlier today. They will attempt to see her later today. Pt states that her cough has resolved since getting her allergy medicine. Denies any CP, nausea, unusual numbness/tingling. Does continue to feel generalized pain and discomfort now to her anterior chest , states she believes it is muscular, happens with movement, denies any SOB. This is a new pain. Denies palpitations. Appears calm. Easy breathing. States she has been drinking lots of water, confirmed by nursing. States she is doing this because she wants to have a BM and she is now feeling constipated. Soon after exam I was told by nursing that pt did indeed have a BM. Objective Active Medications: Atenolol (Tenormin Tab*) 25 mg PO DAILY [facility] Last Admin: 06/09/19 08:47 Dose: 25 mg Atorvastatin Calcium (Lipitor*) 5 mg PO BEDTIME [facility] Last Admin: 06/08/19 20:47 Dose: 5 mg Baclofen (Lioresal Tab*) 20 mg PO QID PRN PRN Reason: PAIN Last Admin: 06/08/19 12:54 Dose: 20 mg Cetirizine HCl (Zyrtec*) 10 mg PO DAILY [facility] Last Admin: 06/09/19 08:47 Dose: 10 mg Dextrose (D50w Syringe 50 Ml*) 12.5 gm IV PUSH .FOR FS < 60 - SS PRN PRN Reason: FS < 60 Diphenoxylate HCl/Atropine (Lomotil Tab*) 2 tab PO QID PRN PRN Reason: DIARRHEA Empagliflozin (Jardiance (Nf)) 10 mg PO DAILY [facility] Last Admin: 06/09/19 08:42 Dose: Not Given Enoxaparin Sodium (Lovenox(*)) 40 mg SUBCUT Q24H [facility] Last Admin: 06/08/19 20:48 Dose: 40 mg Gabapentin (Neurontin Cap(*)) 100 mg PO TID [facility] Last Admin: 06/09/19 12:50 Dose: 100 mg Hydromorphone HCl (Dilaudid Tab*) 6 mg PO Q6H PRN PRN Reason: PAIN - SEVERE Last Admin: 06/09/19 08:48 Dose: 6 mg Sodium Chloride (Ns 0.9% 1000 Ml) 1,000 mls @ 75 mls/hr IV PER RATE [facility] Last Admin: 06/09/19 12:51 Dose: 75 mls/hr Insulin Glargine (Lantus(*)) 60 units SUBCUT Q24H [facility] Last Admin: 06/09/19 12:50 Dose: 60 units Insulin Human Lispro (Humalog*) 0 units SUBCUT ACHS [facility]; Protocol Last Admin: 06/09/19 12:49 Dose: 10 units Magnesium Hydroxide (Milk Of Magnesia Liq*) 30 ml PO Q6H PRN PRN Reason: CONSTIPATION Last Admin: 06/09/19 08:49 Dose: 30 ml Metformin HCl (Glucophage*) 1,000 mg PO BID [facility] Last Admin: 06/09/19 08:47 Dose: 1,000 mg Mirtazapine (Remeron Tab*) 7.5 mg PO BEDTIME [facility] Last Admin: 06/08/19 20:48 Dose: 7.5 mg Pantoprazole Sodium (Protonix Tab*) 40 mg PO DAILY [facility] Last Admin: 06/09/19 08:47 Dose: 40 mg Potassium Chloride (Potassium Chloride Liquid) 10 meq PO BID [facility] Last Admin: 06/09/19 08:46 Dose: 10 meq Sumatriptan Succinate (Imitrex Tab*) 100 mg PO DAILY PRN PRN Reason: MIGRAINE HEADACHE Last Admin: 06/08/19 11:49 Dose: 100 mg Vital Signs - 8 hr 06/09/19 06/09/19 06/09/19 08:00 08:48 10:25 Temperature Pulse Rate Respiratory 18 18 17 Rate Blood Pressure (mmHg) O2 Sat by Pulse Oximetry 06/09/19 06/09/19 12:00 12:50 Temperature 98.1 F Pulse Rate 73 Respiratory 17 17 Rate Blood Pressure 130/98 (mmHg) O2 Sat by Pulse 99 Oximetry Oxygen Devices in Use Now: None Appearance: laying in bed, NAD Eyes: No Scleral Icterus Ears/Nose/Mouth/Throat: Clear Oropharnyx Respiratory: Symmetrical Chest Expansion and Respiratory Effort, - - faint inspiratory rales RLL base, all other lobes clear Cardiovascular: RRR Abdominal: - - normoactive BS X4, abdomen slightly distended, signifigant tenderness to palpation throughout Extremities: No Edema Neurological: Alert and Oriented x 3 Nutrition: Taking PO's Result Diagrams: 06/10/19 05:37 06/10/19 05:37 Additional Lab and Data: Abnormal Lab Results 06/05/19 06/05/19 06/06/19 15:23 19:48 05:52 WBC RBC Hgb Hct MCV MCH MCHC RDW Plt Count MPV Neut % (Auto) Lymph % (Auto) [place]ud[place] % (Auto) Eos % (Auto) Baso % (Auto) Absolute Neuts (auto) Absolute Lymphs (auto) Absolute Monos (auto) Absolute Eos (auto) Absolute Basos (auto) Absolute Nucleated RBC Nucleated RBC % Sodium 138 Potassium 3.3 L Chloride 105 Carbon Dioxide 20 L Anion Gap 13 H BUN 7 Creatinine 0.77 Est GFR ( Amer) 89.7 Est GFR (Non-Af Amer) 74.1 BUN/Creatinine Ratio 9.1 Glucose 259 H POC Glucose (mg/dL) 345 H Hemoglobin A1c See comment H Calcium 8.5 L Magnesium 1.8 L 06/06/19 06/06/19 06/06/19 05:52 07:42 11:54 WBC 8.0 RBC 5.16 H Hgb 15.9 Hct 47 MCV 90 MCH 31 MCHC 34 RDW 14 Plt Count 180 MPV 8.5 Neut % (Auto) 55.4 Lymph % (Auto) 35.1 Hudspeth % (Auto) 8.1 Eos % (Auto) 1.1 Baso % (Auto) 0.3 Absolute Neuts (auto) 4.4 Absolute Lymphs (auto) 2.8 Absolute Monos (auto) 0.6 Absolute Eos (auto) 0.1 Absolute Basos (auto) 0.0 Absolute Nucleated RBC 0.0 Nucleated RBC % 0.1 Sodium Potassium Chloride Carbon Dioxide Anion Gap BUN Creatinine Est GFR ( Amer) Est GFR (Non-Af Amer) BUN/Creatinine Ratio Glucose POC Glucose (mg/dL) 302 H 366 H Hemoglobin A1c Calcium Magnesium 06/06/19 16:14 WBC RBC Hgb Hct MCV MCH MCHC RDW Plt Count MPV Neut % (Auto) Lymph % (Auto) [place] % (Auto) Eos % (Auto) Baso % (Auto) Absolute Neuts (auto) Absolute Lymphs (auto) Absolute Monos (auto) Absolute Eos (auto) Absolute Basos (auto) Absolute Nucleated RBC Nucleated RBC % Sodium Potassium Chloride Carbon Dioxide Anion Gap BUN Creatinine Est GFR ( Amer) Est GFR (Non-Af Amer) BUN/Creatinine Ratio Glucose POC Glucose (mg/dL) 303 H Hemoglobin A1c Calcium Magnesium Abnormal Lab Results 06/05/19 06/06/19 06/07/19 15:23 20:22 06:19 WBC 9.4 RBC 5.37 H Hgb 16.7 H Hct 49 H MCV 92 MCH 31 MCHC 34 RDW 14 Plt Count 212 MPV 8.6 Neut % (Auto) 44.2 Lymph % (Auto) 42.1 [place]ud[place] % (Auto) 11.7 Eos % (Auto) 1.7 Baso % (Auto) 0.3 Absolute Neuts (auto) 4.1 Absolute Lymphs (auto) 3.9 Absolute Monos (auto) 1.1 H Absolute Eos (auto) 0.2 Absolute Basos (auto) 0.0 Absolute Nucleated RBC 0.0 Nucleated RBC % 0.0 Sodium Potassium Chloride Carbon Dioxide Anion Gap BUN Creatinine Est GFR ( Amer) Est GFR (Non-Af Amer) BUN/Creatinine Ratio Glucose POC Glucose (mg/dL) 228 H Glucose Meter Confirm Hemoglobin A1c 18.0 H Calcium Magnesium 06/07/19 06/07/19 06/07/19 06:19 10:30 10:39 WBC RBC Hgb Hct MCV MCH MCHC RDW Plt Count MPV Neut % (Auto) Lymph % (Auto) [place] % (Auto) Eos % (Auto) Baso % (Auto) Absolute Neuts (auto) Absolute Lymphs (auto) Absolute Monos (auto) Absolute Eos (auto) Absolute Basos (auto) Absolute Nucleated RBC Nucleated RBC % Sodium 132 L Potassium 3.6 Chloride 99 L Carbon Dioxide 23 Anion Gap 10 BUN 15 Creatinine 0.97 H Est GFR ( Amer) 68.7 Est GFR (Non-Af Amer) 56.8 BUN/Creatinine Ratio 15.5 Glucose 514 H* POC Glucose (mg/dL) > 444 H* Glucose Meter Confirm 451 H Hemoglobin A1c Calcium 9.1 Magnesium 1.4 L 06/07/19 06/07/19 06/07/19 12:38 15:33 17:09 WBC RBC Hgb Hct MCV MCH MCHC RDW Plt Count MPV Neut % (Auto) Lymph % (Auto) [place] % (Auto) Eos % (Auto) Baso % (Auto) Absolute Neuts (auto) Absolute Lymphs (auto) Absolute Monos (auto) Absolute Eos (auto) Absolute Basos (auto) Absolute Nucleated RBC Nucleated RBC % Sodium Potassium Chloride Carbon Dioxide Anion Gap BUN Creatinine Est GFR ( Amer) Est GFR (Non-Af Amer) BUN/Creatinine Ratio Glucose POC Glucose (mg/dL) 376 H 280 H 140 H Glucose Meter Confirm Hemoglobin A1c Calcium Magnesium Microbiology and Other Data: Microbiology 06/06/19 11:43 Stool Gross Appearance - Final Stool C. difficile DNA Amplification - Final 027 Presumptive NEGATIVE Toxigenic C.diff NEGATIVE Assess/Plan/Problems-Billing Assessment: - Patient Problems (1) HHNC (hyperglycemic hyperosmolar nonketotic coma) Current Visit: Yes Status: Acute Code(s): E11.01 - TYPE 2 DIABETES MELLITUS WITH HYPEROSMOLARITY WITH COMA SNOMED Code(s): 622799236 Comment: Resolved after insulin gtt in ICU, was sent to floor with lispro SS. Has been significantly hyperglycemic today. Prior med rec from office has been obtained. Still seem to be some discrepancies with what she takes per her report and her own list. Poor control over last 24hr - Increase lantus to 65units q24h - Continue lispro SS - Restarted Jardiance 06/06 however not available - Restarting Metformin 06/07 p.m. - FS ACHS - Consistent carb diet - Mild polycythemia and low Na present, may be reactive vs hemoconcentrated - gentle IVF - Recovering from general deconditioning, refused PT today, potential for CARLA at d/c (2) Cough Current Visit: Yes Status: Acute Code(s): R05 - COUGH SNOMED Code(s): 61292240 Comment: C/o new dry cough. No ST, SOB, fevers. Considering she has significant co-morbidities, her age, her stay in the ICU, it is very reasonable to test for COVID. - COVID-19 PCR ordered - States that her cough has resolved 06/08 (3) Diarrhea Current Visit: Yes Status: Acute Code(s): R19.7 - DIARRHEA, UNSPECIFIED SNOMED Code(s): 48667982 Comment: Resolved (4) Opioid dependence Current Visit: No Status: Acute Code(s): F11.20 - OPIOID DEPENDENCE, UNCOMPLICATED SNOMED Code(s): 24513274 Comment: For chronic pain. Home regimen was edited while in ICU. Pain is improved and pt seemingly doing well. Last rx outpatient dilaudid 8mg PO q4-6hr PRN MDD 5 tabs per day - Continue dilaudid to 6mg PO q6hr PRN - She should follow-up about this with her PCP (5) Hypertension Current Visit: No Status: Chronic Code(s): I10 - ESSENTIAL (PRIMARY) HYPERTENSION SNOMED Code(s): 27185849 Comment: BPs WNL - Continue atenolol - Holding Bumex as I believe pt is becoming dehydrated (6) Migraine Current Visit: No Status: Chronic Code(s): G43.909 - MIGRAINE, UNSP, NOT INTRACTABLE, WITHOUT STATUS MIGRAINOSUS SNOMED Code(s): 89471472 Comment: Not c/o migraine at this time - Continue sumatriptan PRN (7) DVT prophylaxis Current Visit: No Status: Chronic Code(s): Z29.9 - ENCOUNTER FOR PROPHYLACTIC MEASURES, UNSPECIFIED SNOMED Code(s): 010460809 Comment: lovenox sq (8) Full code status Current Visit: No Status: Chronic Code(s): Z78.9 - OTHER SPECIFIED HEALTH STATUS SNOMED Code(s): 432362689 Attending: Bel Patel
[2019-06-09] MEDS ORDERED: Insulin GLARGINE(*) 1 UNITS UNIT SUBCUT ONE (15:35)
[2019-06-09] MEDS: Baclofen TAB* 20 MG PO PRN (17:03)
[2019-06-09] MEDS: Mirtazapine TAB* 15 MG PO SCH (21:59)
[2019-06-09] MEDS: Atorvastatin* 10 MG TAB PO SCH (22:01)
[2019-06-09] MEDS: Enoxaparin(*) 40 MG/0.4 ML SYR SUBCUT SCH (22:03)
[2019-06-10] MEDS: NS 0.9% 1000 ML** 1,000 ML IV SCH (02:28)
[2019-06-10 05:50] LABS: Hematocrit 45 % (35-47); Hemoglobin 15.3 g/dL (12.0-16.0); Mean Corpuscular HGB Conc 34 g/dL (31-36); Mean Corpuscular Hemoglobin 31 pg (27-31); Mean Corpuscular Volume 90 fL (80-97); Platelet Count 201 10^3/uL (150-450); Red Blood Count 4.98 10^6 /uL (3.70-4.87); Red Cell Distribution Width 14 % (10-15); White Blood Count 9.8 10^3/uL (3.5-10.8)
[2019-06-10 06:06] LABS: BUN/Creatinine Ratio 32.1 (8-20); Calcium 8.5 mg/dL (8.6-10.3); EGFR African American 84.6 (>60); EGFR Non-African American 69.9 (>60); Potassium 3.9 mmol/L (3.5-5.0)
[2019-06-10 06:37] LABS: ABS Eosinophils 0.3 10^3/ul (0-0.6); ABS Lymphocytes 5.6 10^3/ul (1.0-4.8); ABS Monocytes 0.9 10^3/ul (0-0.8); Eosinophil % 2.6 %; Lymphocyte % 57.1 %
[2019-06-10] MEDS: Atenolol TAB* 25 MG PO SCH (08:46)
[2019-06-10] MEDS: Potassium Chloride* LIQUID 20 MEQ/15 ML UDC PO SCH (08:46)
[2019-06-10] MEDS: Gabapentin CAP(*) 100 MG PO SCH ×2 (08:46→12:20)
[2019-06-10] MEDS: Pantoprazole TAB * 40 MG TAB PO SCH (08:46)
[2019-06-10] MEDS: Insulin LISPRO* 1 UNITS UNIT SUBCUT SCH ×2 (08:46→12:24)
[2019-06-10] MEDS: HYDROmorphone TAB* 4 MG PO PRN (08:47)
[2019-06-10] MEDS: Cetirizine* 10 MG TAB PO SCH (08:47)
[2019-06-10] MEDS: metFORMIN* 500 MG TAB PO SCH (08:47)
[2019-06-10] MEDS: EMPAGLIFLOZIN 10 MG PO SCH (08:48)
[2019-06-10 10:55] VITALS: BP 123/65
[2019-06-10] MEDS ORDERED: Insulin GLARGINE(*) 1 UNITS UNIT SUBCUT SCH (13:00)
--- NOTE | 2019-06-10 23:28 | DS ---
CC: Dr. Anila Saul; Dr. Jared Henderson; Dr. Jaimee Kim* DISCHARGE SUMMARY: DATE OF ADMISSION: 06/04/19 DATE OF DISCHARGE: 06/10/19 PRIMARY CARE PROVIDERS: Dr. Anila Saul, Dr. Jared Henderson. ATTENDING PHYSICIAN: Dr. Jaimee Kim* (dictated by ROULA Au). PRIMARY DIAGNOSES: 1. Hyperosmolar hyperglycemic state. 2. Possible rule out COVID-19. 3. Opioid dependence. SECONDARY DIAGNOSES: 1. Diabetes mellitus, type 2, insulin dependent. 2. History of demyelinating disease. 3. History of vena cava syndrome. 4. Gastroesophageal reflux disease. 5. Anemia. 6. Diverticulitis and inflammatory bowel disease. 7. Inflammatory polyarthropathy. 8. Fibromyalgia. 9. Osteoarthritis. 10. Osteoporosis. 11. Chronic pain. 12. Peripheral neuropathy. 13. Migraines. STUDIES WHILE IN THE HOSPITAL: 1. CT brain, impression: No intracranial mass or hemorrhage. CSF density collection extraaxial in the left posterior parietal lobe consistent with arachnoid cyst is noted unchanged since 2018. 2. Chest x-ray, impression: Findings suspicious for left basilar atelectasis. 3. Abdominal x-ray, impression: Gaseous distention as above with overall nonobstructive bowel gas pattern. 4. Bilateral rib, impression: No displaced rib fracture or pneumothorax. Old left 6th rib fracture is suspected. DISCHARGE MEDICATIONS: Home medications: 1. Alpha-lipoic acid 200 mg p.o. b.i.d. 2. Ascorbate calcium/bioflavonoid 1 tab p.o. b.i.d. with meals. 3. Ascorbic acid 500 mg p.o. b.i.d. 4. Atenolol 25 mg p.o. daily. 5. Atorvastatin 5 mg p.o. at bedtime. 6. Azelastine nasal spray 2 sprays at both nares b.i.d. 7. Baclofen 20 mg p.o. four times a day p.r.n. 8. Brimonidine tartrate 0.33% topical daily p.r.n. 9. Bumetanide 2 mg p.o. at 0900 and 1800. 10. Clobetasol 1 application topically b.i.d. p.r.n. 11. Lotrisone cream 1 application topically b.i.d. 12. Dexlansoprazole 60 mg p.o. daily. 13. Empagliflozin 10 mg p.o. daily. 14. Epinephrine 0.3 mg IM daily p.r.n. 15. Estradiol 0.5 mg p.o. daily. 16. Floradix Iron and Herbs 10 mL p.o. b.i.d. p.c. 17. Folic acid 1 mg p.o. daily with meals. 18. Gabapentin 100 mg p.o. t.i.d. 19. Ipratropium bromide 1 spray to both nares four times a day. 20. Levocetirizine 5 mg p.o. daily. 21. Linaclotide 290 mcg p.o. daily. 22. Magnesium citrate 6 mg p.o. b.i.d. 23. Methotrexate 25 mg subcu weekly. 24. Metronidazole 1 application topically b.i.d. p.r.n. 25. Miconazole 2% topical application daily p.r.n. 26. Mirtazapine 7.5 mg p.o. at bedtime. 27. Fish oil 2000 mg p.o. b.i.d. 28. Ondansetron 4 mg sublingual q.4 hours p.r.n. 28. Potassium chloride 10 mEq p.o. b.i.d. 29. Sumatriptan subcu 0.5 mL subcu daily p.r.n. 30. Sumatriptan 100 mg p.o. daily p.r.n. New home medications: 1. Hydromorphone dose changed to 6 mg p.o. q.6 hours p.r.n., MDD 4 tabs. 2. Insulin glargine 65 units subcu q.24 hours. 3. Lispro 15 units subcu a.c. 4. Metformin changed to metformin ER 750 mg p.o. daily. Discontinued medications: 1. Xultophy. 2. Metformin 1000 mg p.o. b.i.d. HISTORY OF PRESENT ILLNESS/HOSPITAL COURSE: 1. Ms. Brown is a 68-year-old female with a past medical history of diabetes mellitus, insulin dependent, which she is noncompliant, who presented to the ER on 06/04/19 with complaints of hyperglycemia and weakness. Her blood sugar upon arrival to the ER was noted to be 1057 at admission. She did not have an anion gap. She was admitted to the intensive care unit for treatment of hyperglycemic hyperosmolar state. The patient was placed on an insulin drip and was started on saline. Her electrolytes were monitored. She was noted to be of poor mentation with intact mentation at admission. Her CT of the head showed no acute pathology. The patient's HHS resolved with IV insulin and the patient was transitioned off. She was started on Lantus, which was titrated up to 65 units. Her Xultophy had been discontinued at admission. Throughout her stay, her medications were adjusted. She was restarted on metformin and Jardiance. She received lispro sliding scale throughout her stay. Her blood sugars were somewhat difficult to control throughout her stay, but her blood sugar remained below 400 for approximately 48 hours prior to discharge. Her hemoglobin A1c was 18, approximately 2 months prior her hemoglobin A1c was 12.7. She reports that she follows with Dr. Henderson and has not had a recent appointment, although she does have an appointment scheduled for the end of June. Prior to discharge, the patient's medications were discussed with Dr. Henderson , who manages her medications. He recommended continued glargine 65 units subcu daily and discontinuation of Xultophy. The patient will also be placed on lispro 15 units with meals, Jardiance once daily, and her metformin will be transitioned to ER 750 mg p.o. daily. This was discussed with her and she reported to nursing upon exiting the building that she would not be taking these medications as they were not prescribed by Dr. Henderson. 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 Dr. Henderson will call the patient to reschedule her followup appointment. The patient has been instructed on glucose testing every morning and with meals and it was suggested that she record these to bring to Dr. Henderson at her next visit. 2. The patient was noted to have opioid dependence and is on chronic Dilaudid. Her Dilaudid was weaned down and at discharge, she was placed on 4 mg q.6 hours. At discharge, the patient was prescribed this medication and told to discontinue her original dose. This was discussed with the patient prior to discharge and she reports that she refuses to change her dose as she has a contract with her primary care provider. She will continue to follow with her primary care provider for further management and possible decreasing of her home medication. 3. The patient did report a cough at one point during her stay. This resolved quickly once her allergy medications were resumed. The suspicion is that the patient's cough was due to allergies. She denies shortness of breath, fever, cough at discharge. COVID-19 test is pending at this time and the patient has been instructed to quarantine until she receives a call with results for further instructions. At this time, the patient denies headache, dizziness, lightheadedness, vision changes, chest pain, shortness of breath, cough, fever, chills, abdominal pain, nausea, vomiting, diarrhea, myalgias, or arthralgias. Ms. Brown is stable for discharge home. PHYSICAL EXAMINATION: Vital Signs: Temperature 97.5 temporal, heart rate 79, respiratory rate 16, oxygen saturation 96% on room air, blood pressure 123/65. General: Ms. rBown is a well-developed, well-nourished, older white female, who is sitting at the edge of her bed, she appears to be in no acute distress. She is breathing comfortably on room air and speaks in full sentences. Cardiovascular: Regular rate and rhythm with S1, S2 present without murmurs, rubs, clicks, or gallops. There is no JVD. There is no peripheral edema. Pulmonary: Symmetrical chest expansion without use of accessory muscles. Clear to auscultation bilaterally without rhonchi, wheeze, or rales. Abdomen: Bowel sounds in all quadrants. Soft and nontender to palpation. Neuro: The patient is awake. She is alert and oriented x3 and has capacity to make decisions. DISCHARGE PLAN: Ms. Brown will be discharged to home. CONDITION: Fair. DIET: 1. ADA/diabetic. 2. Heart healthy. ACTIVITY: Quarantine per COVID-19 rule out protocol. MEDICATIONS: 1. Discontinue Xultophy. 2. Start insulin glargine 65 units daily at bedtime. 3. Continue lispro 15 units subcu daily with meals. Check blood sugar prior to meal and prior to taking insulin. Call Dr. Henderson if blood sugars greater than 500. 4. Stop your old dose of metformin and start metformin ER 750 mg once daily. 5. Continue Jardiance daily. 6. There has been a change in your Dilaudid dose. We have discussed discarding your old medications and starting a new dose but you would prefer to follow up with your primary care provider. In the events that you decide to decrease your dose of Dilaudid, please either pick up operator this medication from your pharmacy or follow up with your primary care provider. EDUCATION: 1. It is vital that you take your medications as prescribed and follow up regularly with your auto battery builder. Blood glucose level was dangerously high at admission and uncontrolled diabetes could ultimately lead to the . 2. Please monitor blood sugars and keep a record to bring to Dr. Henderson. Blood sugars should be checked every morning and prior to every meal. 3. Continue quarantine per COVID-19 rule out protocol. 4. Follow up with Dr. Henderson within 1 week. He has been notified of your admission at discharge and will call with followup appointment date and time. 5. Follow up with primary care provider in 4 to 7 days. 6. Return to the ER or nearest hospital if you experience any return or worsening of symptoms, chest pain or discomfort, shortness of breath, dizziness , lightheadedness, loss of consciousness, high fevers, chills, night sweats, or any other worrisome signs or symptoms. Call Dr. Henderson or return to the ER for glucose level less than 70 or greater than 500. This is a summarized report of a complex medical history and hospital stay. For further details, please see the entire medical record. TIME SPENT: Approximately 40 minutes was spent on this discharge, greater than half that time spent [id number] with the patient discussing discharge instructions. ROULA JOSEPH [id number]/[facility] #: [id number] TIKI
== END 2019-06-10 13:15 | disposition home health service (06) | DRG 638 ==
LOC: ED 14:31 → ICU 18:00 → MEDTELE 06-05 14:55 → MED 06-08 14:17
PROVIDERS: ADMIT Surgery Surgical Critical Care; ATTEND Internal Medicine
DX: E11.00 Type 2 diabetes mellitus with hyperosmolarity without nonketotic hyperglycemic-hyperosmolar coma (NKHHC) (principal); G37.9 Demyelinating disease of central nervous system, unspecified; E87.2 Acidosis; F11.20 Opioid dependence, uncomplicated; I87.1 Compression of vein; J98.11 Atelectasis; M19.90 Unspecified osteoarthritis, unspecified site; M79.7 Fibromyalgia; K21.9 Gastro-esophageal reflux disease without esophagitis; E11.42 Type 2 diabetes mellitus with diabetic polyneuropathy; M81.0 Age-related osteoporosis without current pathological fracture; I10 Essential (primary) hypertension; G43.909 Migraine, unspecified, not intractable, without status migrainosus; R19.7 Diarrhea, unspecified; R05 Cough; D75.1 Secondary polycythemia; G89.29 Other chronic pain; D64.9 Anemia, unspecified; K58.9 Irritable bowel syndrome, unspecified; Z87.19 Personal history of other diseases of the digestive system; Z91.14 Patient's other noncompliance with medication regimen; Z79.84 Long term (current) use of oral hypoglycemic drugs; Z79.4 Long term (current) use of insulin; Z79.899 Other long term (current) drug therapy; Z88.6 Allergy status to analgesic agent; Z88.5 Allergy status to narcotic agent; Z88.0 Allergy status to penicillin; Z88.2 Allergy status to sulfonamides; Z88.8 Allergy status to other drugs, medicaments and biological substances; Z91.018 Allergy to other foods; Z91.048 Other nonmedicinal substance allergy status; Z81.8 Family history of other mental and behavioral disorders
CPT/HCPCS: 36415; 70450; 71045; 71110; 74019; 80048; 80053; 80061; 80320; 81003; 82947; 83036; 83605; 83721; 83735; 83880; 84100; 84484; 85025; 85060; 85610; 85730; 86850; 86900; 86901; 87045; 87046; 87077; 87493; 87635; 87899; 93005; 99285; A9270-GY; G0480; J1650; J3475; J3480

== ENCOUNTER 2019-10-16 13:44 | Inpatient (IN) ==
[2019-10-16] MEDS ORDERED: NS 0.9% 1000 ml BAG 1,000 ML IV ONE ×2 (13:55→14:24)
[2019-10-16 14:21] LABS: ALT 20 U/L (7-52); AST 13 U/L (13-39); Albumin 4.9 g/dL (3.2-5.2); Albumin/Globulin Ratio 1.1 (1-3); Alkaline Phosphatase 209 U/L (34-104); Anion Gap 19 mmol/L (2-11); BUN/Creatinine Ratio 21.1 (8-20); Blood Urea Nitrogen 26 mg/dL (6-24); CO2 Carbon Dioxide 24 mmol/L (22-32); Calcium 10.8 mg/dL (8.6-10.3); Chloride 96 mmol/L (101-111); EGFR African American 52.1 (>60); Globulin 4.4 g/dL (2-4); Magnesium 2.9 mg/dL (1.9-2.7); Potassium 3.4 mmol/L (3.5-5.0); Sodium 139 mmol/L (135-145); Total Protein 9.3 g/dL (6.4-8.9)
[2019-10-16 14:23] LABS: ABS Basophils 0.1 10^3/ul (0-0.2); ABS Lymphocytes 1.2 10^3/ul (1.0-4.8); ABS Monocytes 0.8 10^3/ul (0-0.8); ABS Neutrophils 12.5 10^3/ul (1.5-7.7); Glucose 718 mg/dL (70-100); Glucose Confirmatory 718 mg/dL (70-100); Hematocrit 62 % (35-47); Hemoglobin 17.3 g/dL (12.0-16.0); Lymphocyte % 8.1 %; Mean Corpuscular HGB Conc 28 g/dL (31-36); Mean Corpuscular Hemoglobin 28 pg (27-31); Mean Corpuscular Volume 101 fL (80-97); Platelet Count 327 10^3/uL (150-450); Red Blood Count 6.15 10^6 /uL (3.70-4.87); Red Cell Distribution Width 17 % (10-15); White Blood Count 14.6 10^3/uL (3.5-10.8)
[2019-10-16] MEDS ORDERED: Insulin Infusion 100unit/100mL 100 UNIT/100 ML BAG IV ONE (14:32)
[2019-10-16 14:42] LABS: Urine Appearance Clear; Urine Bilirubin Negative (Negative); Urine Blood Negative (Negative); Urine Color Colorless; Urine Glucose 3+(>=500 mg/dL) (Negative); Urine Ketones Negative (Negative); Urine Nitrite Negative (Negative); Urine Protein Negative (Negative); Urine Specific Gravity 1.021 (1.010-1.030); Urine Urobilinogen Negative (Negative)
[2019-10-16] MEDS: KCL 10 MEQ/50 ML IVPREMIX 10 MEQ/50 ML BAG IV SCH ×2 (14:57→16:41)
[2019-10-16 14:58] LABS: Urine Benzodiazepine Screen None Detected (None Detect); Urine Cannabinoids Screen None Detected (None Detect); Urine Opiates Screen Presumptive Positive (None Detect)
[2019-10-16] MEDS ORDERED: Insulin Infusion 100unit/100mL 100 UNIT/100 ML BAG IV SCH (15:00)
[2019-10-16 15:01] LABS: Acetaminophen < 15 mcg/mL; Alcohol, S < 10 mg/dL (<10); Salicylate < 2.50 mg/dL (<30)
[2019-10-16 17:14] LABS: BUN/Creatinine Ratio 20.8 (8-20); Calcium 10.4 mg/dL (8.6-10.3); EGFR African American 53.6 (>60); EGFR Non-African American 44.3 (>60); Potassium 3.1 mmol/L (3.5-5.0)
[2019-10-16 18:04] LABS: TSH Ultra Thyroid Stim Horm 0.55 mcIU/mL (0.34-5.60)
[2019-10-16] MEDS: Potassium Chloride IV 20 MEQ in Lactated Ringers 1000 ml BAG 1,000 ML IVPB SCH (20:09)
[2019-10-16 20:20] LABS: BUN/Creatinine Ratio 21.7 (8-20); Blood Urea Nitrogen 23 mg/dL (6-24); CO2 Carbon Dioxide 23 mmol/L (22-32); Calcium 10.5 mg/dL (8.6-10.3); EGFR African American 61.8 (>60); EGFR Non-African American 51.1 (>60); Glucose 194 mg/dL (70-100)
[2019-10-16 20:25] LABS: Chloride 116 mmol/L (101-111); Sodium 153 mmol/L (135-145)
[2019-10-16 20:28] LABS: Anion Gap 14 mmol/L (2-11)
[2019-10-16] MEDS: HYDROmorphone 1 MG/1 ML SYRINGE IV PRN ×2 (20:42→23:27)
[2019-10-16] MEDS ORDERED: Lactated Ringers 1000 ml BAG 1,000 ML IV ONE (21:00)
[2019-10-16] MEDS ORDERED: Insulin GLARGINE 100 un/ml 10 ml VIAL SUBCUT ONE (22:17)
[2019-10-17] MEDS ORDERED: Dextrose 50% Syringe 50 ml 25 GM/50 ML SYRINGE IV PUSH PRN (00:27)
[2019-10-17] MEDS: HYDROmorphone 1 MG/1 ML SYRINGE IV PRN ×3 (01:38→15:29)
[2019-10-17 04:44] LABS: Hematocrit 50 % (35-47); Mean Corpuscular HGB Conc 32 g/dL (31-36); Mean Corpuscular Hemoglobin 28 pg (27-31); Mean Corpuscular Volume 87 fL (80-97); Mean Platelet Volume 7.9 fL (7.4-10.4); Platelet Count 321 10^3/uL (150-450); Red Blood Count 5.76 10^6 /uL (3.70-4.87); Red Cell Distribution Width 15 % (10-15); White Blood Count 20.6 10^3/uL (3.5-10.8)
[2019-10-17 04:54] LABS: Calcium 9.9 mg/dL (8.6-10.3); EGFR African American 66.1 (>60); EGFR Non-African American 54.7 (>60)
[2019-10-17] MEDS: Potassium Chloride IV 20 MEQ in Lactated Ringers 1000 ml BAG 1,000 ML IVPB SCH (05:13)
[2019-10-17 05:43] LABS: ABS Lymphocytes 2.3 10^3/ul (1.0-4.8); ABS Monocytes 2.4 10^3/ul (0-0.8); ABS Neutrophils 15.8 10^3/ul (1.5-7.7); Lymphocyte % 11.1 %
[2019-10-17 08:14] LABS: Calcium 10.1 mg/dL (8.6-10.3); EGFR African American 66.1 (>60); EGFR Non-African American 54.7 (>60); Potassium 3.9 mmol/L (3.5-5.0)
[2019-10-17] MEDS: NS 0.45% 1000 ml BAG 1,000 ML IV SCH ×2 (09:00→14:41)
[2019-10-17 10:24] LABS: Magnesium 2.8 mg/dL (1.9-2.7)
[2019-10-17] MEDS ORDERED: Vancomycin 1,000 MG in NS 0.9% 250 ml 250 ML IVPB ONE (11:01)
[2019-10-17] MEDS: Heparin 5000 UNITS/ML 1 mL VIAL SUBCUT SCH ×2 (11:11→21:14)
[2019-10-17 11:39] LABS: Urine Appearance Turbid; Urine Bilirubin Negative (Negative); Urine Blood 3+ (Negative); Urine Color Yellow; Urine Glucose 3+(>=500 mg/dL) (Negative); Urine Ketones Trace (Negative); Urine Nitrite Negative (Negative); Urine Protein 2+(100 mg/dL) (Negative); Urine Specific Gravity 1.022 (1.010-1.030); Urine Urobilinogen Negative (Negative)
[2019-10-17 11:45] LABS: Urine Bacteria Absent (Absent); Urine Red Blood Cell 3+(>10/hpf) (Absent); Urine Squamous Epithelial Cell Present (Absent); Urine White Blood Cell 3+(>20/hpf) (Absent)
[2019-10-17] MEDS ORDERED: Vancomycin per Pharmacy 1 EA NOTE FOLLOW UP SCH (12:00)
[2019-10-17] MEDS: Meropenem 1 GM PREMIX(*) 1 GM/50 ML BAG IV SCH (13:02)
[2019-10-17 15:31] LABS: Calcium 8.8 mg/dL (8.6-10.3); EGFR African American 80.9 (>60); EGFR Non-African American 66.8 (>60); Potassium 3.6 mmol/L (3.5-5.0)
[2019-10-17] MEDS: KCL 10 MEQ/50 ML IVPREMIX 10 MEQ/50 ML BAG IV SCH ×2 (16:01→18:30)
[2019-10-17] MEDS ORDERED: NS 0.45% 1000 ml BAG 1,000 ML IV SCH (16:21)
[2019-10-17] MEDS: Insulin GLARGINE 100 un/ml 10 ml VIAL SUBCUT SCH (21:13)
[2019-10-17] MEDS: Vancomycin 1,000 MG in NS 0.9% 250 ml 250 ML IV SCH (21:14)
[2019-10-17 23:12] LABS: BUN/Creatinine Ratio 17.1 (8-20); EGFR African American 83.2 (>60); EGFR Non-African American 68.7 (>60)
[2019-10-18 00:34] LABS: BUN/Creatinine Ratio 16.9 (8-20); Calcium 8.8 mg/dL (8.6-10.3); EGFR African American 89.4 (>60); EGFR Non-African American 73.9 (>60); Potassium 3.9 mmol/L (3.5-5.0)
[2019-10-18] MEDS: Meropenem 1 GM PREMIX(*) 1 GM/50 ML BAG IV SCH ×2 (00:36→13:37)
[2019-10-18] MEDS: HYDROmorphone 1 MG/1 ML SYRINGE IV PRN ×7 (03:05→22:30)
[2019-10-18 05:02] LABS: ABS Lymphocytes 4.3 10^3/ul (1.0-4.8); ABS Monocytes 0.9 10^3/ul (0-0.8); ABS Neutrophils 7.9 10^3/ul (1.5-7.7); Eosinophil % 0.2 %; Hematocrit 41 % (35-47); Hemoglobin 13.7 g/dL (12.0-16.0); Lymphocyte % 32.8 %; Mean Corpuscular HGB Conc 33 g/dL (31-36); Mean Corpuscular Hemoglobin 28 pg (27-31); Mean Corpuscular Volume 84 fL (80-97); Mean Platelet Volume 7.4 fL (7.4-10.4); Nucleated Red Blood Cells % 0.1; Platelet Count 232 10^3/uL (150-450); Red Cell Distribution Width 16 % (10-15); White Blood Count 13.2 10^3/uL (3.5-10.8)
[2019-10-18 05:14] LABS: Magnesium 2.2 mg/dL (1.9-2.7); Potassium 3.9 mmol/L (3.5-5.0)
[2019-10-18 05:20] LABS: BUN/Creatinine Ratio 17.1 (8-20); EGFR African American 90.8 (>60)
[2019-10-18] MEDS: Heparin 5000 UNITS/ML 1 mL VIAL SUBCUT SCH ×3 (05:46→22:35)
[2019-10-18] MEDS: SUMAtriptan Subcut 6 MG/0.5 ML VIAL SUBCUT PRN (09:06)
[2019-10-18] MEDS: Vancomycin 1,000 MG in NS 0.9% 250 ml 250 ML IV SCH ×2 (11:43→22:43)
[2019-10-18] MEDS: Insulin GLARGINE 100 un/ml 10 ml VIAL SUBCUT SCH (22:33)
[2019-10-19] MEDS: HYDROmorphone 1 MG/1 ML SYRINGE IV PRN ×6 (00:48→21:33)
[2019-10-19] MEDS: Heparin 5000 UNITS/ML 1 mL VIAL SUBCUT SCH ×3 (05:04→21:32)
[2019-10-19 06:41] LABS: Hematocrit 40 % (35-47); Hemoglobin 13.7 g/dL (12.0-16.0); Mean Corpuscular HGB Conc 34 g/dL (31-36); Mean Corpuscular Hemoglobin 29 pg (27-31); Mean Corpuscular Volume 84 fL (80-97); Mean Platelet Volume 7.3 fL (7.4-10.4); Platelet Count 210 10^3/uL (150-450); Red Cell Distribution Width 16 % (10-15); White Blood Count 10.7 10^3/uL (3.5-10.8)
[2019-10-19 06:54] LABS: Calcium 9.1 mg/dL (8.6-10.3); EGFR African American 80.9 (>60); EGFR Non-African American 66.8 (>60); Magnesium 1.9 mg/dL (1.9-2.7); Potassium 4.1 mmol/L (3.5-5.0)
[2019-10-19] MEDS: SUMAtriptan Subcut 6 MG/0.5 ML VIAL SUBCUT PRN (07:12)
[2019-10-19] MEDS ORDERED: Vancomycin Trough Check NOTE FOLLOW UP ONE (09:30)
[2019-10-19 10:35] LABS: ABS Eosinophils 0.2 10^3/ul (0-0.6); ABS Lymphocytes 5.9 10^3/ul (1.0-4.8); ABS Monocytes 0.8 10^3/ul (0-0.8); ABS Neutrophils 3.7 10^3/ul (1.5-7.7); Eosinophil % 1.6 %; Lymphocyte % 55.5 %
[2019-10-19] MEDS: Vancomycin 1,000 MG in NS 0.9% 250 ml 250 ML IV SCH (11:34)
[2019-10-19] MEDS ORDERED: Vancomycin 750 MG in NS 0.9% 250 ml 250 ML IVPB SCH (12:00)
[2019-10-19] MEDS ORDERED: Saline NASAL SPRAY 0.65% BTL BOTH NARES PRN (15:02)
[2019-10-19] MEDS: Nitrofurantoin (monohydrate/macrocrystals) 100 mg CAP PO SCH (21:25)
[2019-10-19] MEDS: Insulin GLARGINE 100 un/ml 10 ml VIAL SUBCUT SCH (21:31)
[2019-10-19] MEDS ORDERED: IPRATROPIUM BR (NF)0.03% NASAL 1 SPRAY BTL BOTH NARES PRN (23:30)
[2019-10-20] MEDS: HYDROmorphone 1 MG/1 ML SYRINGE IV PRN ×8 (02:37→22:20)
[2019-10-20] MEDS: Heparin 5000 UNITS/ML 1 mL VIAL SUBCUT SCH ×3 (05:59→22:26)
[2019-10-20 06:14] LABS: ABS Eosinophils 0.2 10^3/ul (0-0.6); ABS Lymphocytes 3.4 10^3/ul (1.0-4.8); ABS Monocytes 0.6 10^3/ul (0-0.8); Eosinophil % 2.1 %; Hematocrit 42 % (35-47); Hemoglobin 14.1 g/dL (12.0-16.0); Lymphocyte % 47.6 %; Mean Corpuscular HGB Conc 34 g/dL (31-36); Mean Corpuscular Hemoglobin 29 pg (27-31); Mean Corpuscular Volume 84 fL (80-97); Mean Platelet Volume 7.6 fL (7.4-10.4); Nucleated Red Blood Cells % 0.1; Platelet Count 192 10^3/uL (150-450); Red Blood Count 4.95 10^6 /uL (3.70-4.87); Red Cell Distribution Width 16 % (10-15); White Blood Count 7.3 10^3/uL (3.5-10.8)
[2019-10-20 06:25] LABS: BUN/Creatinine Ratio 20.2 (8-20); Calcium 9.4 mg/dL (8.6-10.3); EGFR Non-African American 58.7 (>60); Magnesium 1.9 mg/dL (1.9-2.7); Potassium 4.2 mmol/L (3.5-5.0)
[2019-10-20] MEDS: Nitrofurantoin (monohydrate/macrocrystals) 100 mg CAP PO SCH ×2 (08:28→22:23)
[2019-10-20] MEDS: NF:Linaclotide 290 mcg CAP (NF) PO SCH (08:29)
[2019-10-20] MEDS: Azelastine 0.1% Nasal (NF) 30 ML BTL BOTH NARES SCH ×2 (08:29→22:17)
[2019-10-20] MEDS: SUMAtriptan Subcut 6 MG/0.5 ML VIAL SUBCUT PRN (12:55)
[2019-10-20] MEDS: Insulin GLARGINE 100 un/ml 10 ml VIAL SUBCUT SCH (22:27)
[2019-10-21] MEDS: HYDROmorphone 1 MG/1 ML SYRINGE IV PRN ×10 (00:31→23:22)
[2019-10-21] MEDS: Heparin 5000 UNITS/ML 1 mL VIAL SUBCUT SCH ×3 (05:53→20:34)
[2019-10-21] MEDS: NF:Linaclotide 290 mcg CAP (NF) PO SCH (08:08)
[2019-10-21] MEDS: Azelastine 0.1% Nasal (NF) 30 ML BTL BOTH NARES SCH ×2 (08:08→20:38)
[2019-10-21] MEDS: Nitrofurantoin (monohydrate/macrocrystals) 100 mg CAP PO SCH ×2 (09:41→20:33)
[2019-10-21] MEDS: SUMAtriptan Subcut 6 MG/0.5 ML VIAL SUBCUT PRN (09:42)
[2019-10-21 12:41] LABS: EGFR African American 74.7 (>60); EGFR Non-African American 61.7 (>60)
[2019-10-21] MEDS: Insulin GLARGINE 100 un/ml 10 ml VIAL SUBCUT SCH (20:34)
[2019-10-22] MEDS: Heparin 5000 UNITS/ML 1 mL VIAL SUBCUT SCH ×3 (04:59→22:41)
[2019-10-22] MEDS: HYDROmorphone 1 MG/1 ML SYRINGE IV PRN ×7 (04:59→22:31)
[2019-10-22] MEDS: NF:Linaclotide 290 mcg CAP (NF) PO SCH (08:19)
[2019-10-22] MEDS: Azelastine 0.1% Nasal (NF) 30 ML BTL BOTH NARES SCH ×2 (08:19→22:45)
[2019-10-22] MEDS: Nitrofurantoin (monohydrate/macrocrystals) 100 mg CAP PO SCH (08:20)
[2019-10-22] MEDS: SUMAtriptan Subcut 6 MG/0.5 ML VIAL SUBCUT PRN (18:31)
[2019-10-22] MEDS: Insulin GLARGINE 100 un/ml 10 ml VIAL SUBCUT SCH (22:40)
[2019-10-23] MEDS: Heparin 5000 UNITS/ML 1 mL VIAL SUBCUT SCH ×2 (05:46→13:42)
[2019-10-23] MEDS: HYDROmorphone 1 MG/1 ML SYRINGE IV PRN ×2 (05:47→08:32)
[2019-10-23] MEDS: Azelastine 0.1% Nasal (NF) 30 ML BTL BOTH NARES SCH (08:38)
[2019-10-23] MEDS: NF:Linaclotide 290 mcg CAP (NF) PO SCH (08:38)
[2019-10-23] MEDS ORDERED: HYDROmorphone 8mg TAB (NF) PO PRN (13:00)
[2019-10-23 14:08] VITALS: BP 135/62
== END 2019-10-23 16:10 | disposition home or self-care (01) | DRG 637 ==
LOC: ED 13:44 → ICU 16:31 → MEDTELE 10-18 09:37
PROVIDERS: ADMIT Internal Medicine; ATTEND Internal Medicine

== ENCOUNTER 2019-11-24 23:53 | Inpatient (IN) ==
[2019-11-25] MEDS ORDERED: NS 0.9% 1000 ml BAG 2,000 ML IV ONE (00:17)
[2019-11-25 01:51] LABS: ABS Lymphocytes 3.1 10^3/ul (1.0-4.8); ABS Monocytes 1.5 10^3/ul (0-0.8); ABS Neutrophils 10.9 10^3/ul (1.5-7.7); Eosinophil % 0.1 %; Hematocrit 51 % (35-47); Hemoglobin 16.1 g/dL (12.0-16.0); Lymphocyte % 20.2 %; Mean Corpuscular HGB Conc 32 g/dL (31-36); Mean Corpuscular Hemoglobin 28 pg (27-31); Mean Corpuscular Volume 87 fL (80-97); Mean Platelet Volume 8.7 fL (7.4-10.4); Platelet Count 331 10^3/uL (150-450); Red Cell Distribution Width 16 % (10-15); White Blood Count 15.5 10^3/uL (3.5-10.8)
[2019-11-25 01:57] LABS: INR 1.24 (0.82-1.09)
[2019-11-25 02:22] LABS: ALT 161 U/L (7-52); Albumin 4.5 g/dL (3.2-5.2); Albumin/Globulin Ratio 1.3 (1-3); Alkaline Phosphatase 163 U/L (34-104); BUN/Creatinine Ratio 30.6 (8-20); Blood Urea Nitrogen 82 mg/dL (6-24); Calcium 9.1 mg/dL (8.6-10.3); Chloride 89 mmol/L (101-111); EGFR African American 21.2 (>60); EGFR Non-African American 17.5 (>60); Globulin 3.5 g/dL (2-4); Glucose 296 mg/dL (70-100)
[2019-11-25 02:51] LABS: Alcohol, S < 10 mg/dL (<10)
[2019-11-25 03:14] LABS: Sodium 119 mmol/L (135-145)
[2019-11-25 03:15] LABS: CO2 Carbon Dioxide 13 mmol/L (22-32); Troponin I 0.11 ng/mL (<0.03)
[2019-11-25] MEDS ORDERED: Insulin Infusion 100unit/100mL 100 UNIT/100 ML BAG IV ONE (03:25)
[2019-11-25 03:29] LABS: AST 59 U/L (13-39)
[2019-11-25 03:32] LABS: Anion Gap 17 mmol/L (2-11)
[2019-11-25] MEDS ORDERED: NS 0.9% 1000 ml BAG 1,000 ML IV SCH (04:15)
[2019-11-25] MEDS ORDERED: D5NS 0.9% 1000 ml BAG 1,000 ML IV SCH (05:00)
[2019-11-25 05:12] LABS: Troponin I 0.09 ng/mL (<0.03)
[2019-11-25 06:16] LABS: Potassium Redraw 4.3 mmol/L (3.5-5.0)
[2019-11-25 06:25] LABS: Urine Appearance Cloudy; Urine Bilirubin Negative (Negative); Urine Blood Negative (Negative); Urine Color Yellow; Urine Glucose 3+(>=500 mg/dL) (Negative); Urine Ketones Negative (Negative); Urine Nitrite Negative (Negative); Urine Protein Negative (Negative); Urine Specific Gravity 1.011 (1.010-1.030); Urine Urobilinogen Negative (Negative)
[2019-11-25 07:11] LABS: Urine Bacteria 1+ (Absent); Urine Red Blood Cell 2+(6-10/hpf) (Absent); Urine White Blood Cell 3+(>20/hpf) (Absent)
[2019-11-25 07:52] LABS: ABS Eosinophils 0.1 10^3/ul (0-0.6); ABS Lymphocytes 3.4 10^3/ul (1.0-4.8); ABS Monocytes 1.8 10^3/ul (0-0.8); ABS Neutrophils 8.7 10^3/ul (1.5-7.7); Eosinophil % 0.4 %; Hematocrit 42 % (35-47); Hemoglobin 13.4 g/dL (12.0-16.0); Mean Corpuscular HGB Conc 32 g/dL (31-36); Mean Corpuscular Hemoglobin 28 pg (27-31); Mean Corpuscular Volume 89 fL (80-97); Nucleated Red Blood Cells % 0.2; Platelet Count 249 10^3/uL (150-450); Red Blood Count 4.74 10^6 /uL (3.70-4.87); Red Cell Distribution Width 16 % (10-15)
[2019-11-25 07:55] LABS: BUN/Creatinine Ratio 40.9 (8-20); Calcium 6.5 mg/dL (8.6-10.3); EGFR African American 37.4 (>60); EGFR Non-African American 30.9 (>60); Phosphorus 5.2 mg/dL (2.5-5.0); Potassium 3.4 mmol/L (3.5-5.0)
[2019-11-25] MEDS ORDERED: Dextrose 50% Syringe 50 ml 25 GM/50 ML SYRINGE ONE (08:16)
[2019-11-25] MEDS: KCL 10 MEQ/50 ML IVPREMIX 10 MEQ/50 ML BAG IV SCH ×4 (08:19→13:45)
[2019-11-25] MEDS: D5LR 1000 ml BAG 1,000 ML IV SCH ×2 (08:19→14:48)
[2019-11-25] MEDS: Heparin 5000 UNITS/ML 1 mL VIAL SUBCUT SCH ×3 (08:19→22:10)
[2019-11-25] MEDS: Dextrose 50% Syringe 50 ml 25 GM/50 ML SYRINGE IV PUSH PRN ×2 (08:20→11:11)
[2019-11-25] MEDS ORDERED: Naloxone 0.4 mg VIAL 0.4 mg/ml 1 ml VIAL ONE (08:49)
[2019-11-25 08:53] LABS: Urine Benzodiazepine Screen None Detected (None Detect); Urine Cannabinoids Screen None Detected (None Detect); Urine Opiates Screen Presumptive Positive (None Detect)
[2019-11-25] MEDS ORDERED: Naloxone 0.4 mg VIAL 0.4 mg/ml 1 ml VIAL IV PUSH ONE (09:14)
[2019-11-25] MEDS: Cefepime 1 GM in Dextrose 1 GM/50 ML BAG IV SCH ×2 (10:19→19:53)
[2019-11-25] MEDS: Naloxone 0.4 mg VIAL 0.4 mg/ml 1 ml VIAL IV PUSH PRN ×2 (10:45→16:07)
[2019-11-25] MEDS ORDERED: Insulin GLARGINE 100 un/ml 10 ml VIAL SUBCUT ONE ×3 (11:57→23:04)
[2019-11-25] MEDS ORDERED: Dextrose 50% Syringe 50 ml 25 GM/50 ML SYRINGE IV PUSH PRN (13:43)
[2019-11-25] MEDS: Dextrose 50% Syringe 50 ml 25 GM/50 ML SYRINGE ONE ×2 (13:45→13:51)
[2019-11-25 15:39] LABS: BUN/Creatinine Ratio 39.4 (8-20); EGFR African American 44.1 (>60); EGFR Non-African American 36.5 (>60); Potassium 4.6 mmol/L (3.5-5.0)
[2019-11-25] MEDS ORDERED: D5LR 1000 ml BAG 1,000 ML IV SCH (15:51)
[2019-11-25 20:48] LABS: BUN/Creatinine Ratio 39.4 (8-20); EGFR African American 59.9 (>60); EGFR Non-African American 49.5 (>60)
[2019-11-26] MEDS ORDERED: HYDROmorphone 0.5 MG/0.5 ML SYRINGE IV ONE (03:15)
[2019-11-26] MEDS: Ondansetron 4 mg VIAL 2 MG/ML 2 ml VIAL IV PRN ×2 (03:42→14:55)
[2019-11-26 05:41] LABS: ABS Lymphocytes 2.4 10^3/ul (1.0-4.8); ABS Monocytes 0.9 10^3/ul (0-0.8); ABS Neutrophils 7.2 10^3/ul (1.5-7.7); Eosinophil % 0.4 %; Hematocrit 42 % (35-47); Lymphocyte % 22.5 %; Mean Corpuscular HGB Conc 34 g/dL (31-36); Mean Corpuscular Hemoglobin 29 pg (27-31); Mean Corpuscular Volume 85 fL (80-97); Mean Platelet Volume 7.9 fL (7.4-10.4); Platelet Count 219 10^3/uL (150-450); Red Blood Count 4.88 10^6 /uL (3.70-4.87); Red Cell Distribution Width 15 % (10-15); White Blood Count 10.5 10^3/uL (3.5-10.8)
[2019-11-26 06:04] LABS: Anion Gap 6 mmol/L (2-11); CO2 Carbon Dioxide 21 mmol/L (22-32); Calcium 8.4 mg/dL (8.6-10.3); Chloride 109 mmol/L (101-111); Magnesium 2.2 mg/dL (1.9-2.7); Potassium 4.4 mmol/L (3.5-5.0); Sodium 136 mmol/L (135-145)
[2019-11-26 06:08] LABS: Troponin I 0.05 ng/mL (<0.03)
[2019-11-26 06:10] LABS: BUN/Creatinine Ratio 33.7 (8-20); Blood Urea Nitrogen 29 mg/dL (6-24); Cholesterol 69 mg/dL; EGFR African American 78.7 (>60); Glucose 224 mg/dL (70-100); HDL Cholesterol 26.9 mg/dL; LDL Cholesterol 13 mg/dL; Triglycerides 146 mg/dL
[2019-11-26] MEDS: Heparin 5000 UNITS/ML 1 mL VIAL SUBCUT SCH ×3 (06:38→22:00)
[2019-11-26] MEDS: Cefepime 1 GM in Dextrose 1 GM/50 ML BAG IV SCH ×2 (09:05→20:03)
[2019-11-26] MEDS ORDERED: Insulin GLARGINE 100 un/ml 10 ml VIAL SUBCUT SCH (21:00)
[2019-11-27] MEDS: Ondansetron 4 mg VIAL 2 MG/ML 2 ml VIAL IV PRN (00:17)
[2019-11-27] MEDS: Heparin 5000 UNITS/ML 1 mL VIAL SUBCUT SCH ×3 (05:38→22:39)
[2019-11-27] MEDS: Cefepime 1 GM in Dextrose 1 GM/50 ML BAG IV SCH ×2 (09:04→19:43)
[2019-11-27 11:53] LABS: ABS Lymphocytes 2.2 10^3/ul (1.0-4.8); ABS Monocytes 0.8 10^3/ul (0-0.8); ABS Neutrophils 6.2 10^3/ul (1.5-7.7); Eosinophil % 0.3 %; Hematocrit 43 % (35-47); Hemoglobin 14.3 g/dL (12.0-16.0); Mean Corpuscular HGB Conc 33 g/dL (31-36); Mean Corpuscular Hemoglobin 29 pg (27-31); Mean Corpuscular Volume 86 fL (80-97); Mean Platelet Volume 8.1 fL (7.4-10.4); Platelet Count 221 10^3/uL (150-450); Red Cell Distribution Width 16 % (10-15); White Blood Count 9.4 10^3/uL (3.5-10.8)
[2019-11-27 12:09] LABS: BUN/Creatinine Ratio 20.5 (8-20); Calcium 9.7 mg/dL (8.6-10.3); EGFR African American 88.1 (>60); EGFR Non-African American 72.8 (>60); Potassium 4.8 mmol/L (3.5-5.0)
[2019-11-27] MEDS ORDERED: Dextrose 50% Syringe 50 ml 25 GM/50 ML SYRINGE IV PUSH PRN (14:22)
[2019-11-27] MEDS: Insulin GLARGINE 100 un/ml 10 ml VIAL SUBCUT SCH (15:53)
[2019-11-27] MEDS ORDERED: RAMELTEON 8 MG PO SCH (21:00)
[2019-11-28] MEDS ORDERED: Magnesium Hydroxide LIQ 30 ML UDC PO ONE (02:32)
[2019-11-28] MEDS: Heparin 5000 UNITS/ML 1 mL VIAL SUBCUT SCH ×3 (05:45→22:04)
[2019-11-28] MEDS: Cefepime 1 GM in Dextrose 1 GM/50 ML BAG IV SCH ×2 (08:03→20:11)
[2019-11-28 09:08] LABS: Hematocrit 47 % (35-47); Hemoglobin 15.9 g/dL (12.0-16.0); Mean Corpuscular HGB Conc 34 g/dL (31-36); Mean Corpuscular Hemoglobin 29 pg (27-31); Mean Corpuscular Volume 85 fL (80-97); Mean Platelet Volume 7.8 fL (7.4-10.4); Platelet Count 279 10^3/uL (150-450); Red Blood Count 5.54 10^6 /uL (3.70-4.87); Red Cell Distribution Width 16 % (10-15); White Blood Count 13.8 10^3/uL (3.5-10.8)
[2019-11-28] MEDS ORDERED: Ramelteon 8 mg TAB (NF) PO SCH (09:10)
[2019-11-28 09:28] LABS: BUN/Creatinine Ratio 22.1 (8-20); Calcium 9.3 mg/dL (8.6-10.3); EGFR African American 78.7 (>60); Potassium 3.7 mmol/L (3.5-5.0)
[2019-11-28] MEDS ORDERED: Dextrose 50% Syringe 50 ml 25 GM/50 ML SYRINGE IV PUSH PRN (10:54)
[2019-11-28] MEDS: [UNRECOGNIZED DRUG - OTHER] BOTH EYES PRN ×2 (16:14→18:40)
[2019-11-28] MEDS: Insulin GLARGINE 100 un/ml 10 ml VIAL SUBCUT SCH (16:59)
[2019-11-28] MEDS ORDERED: Metronidazole (TOPICAL)(NF) 45 GM TUBE TOPICAL PRN (20:24)
[2019-11-28] MEDS ORDERED: Al Hydrox/Mg Hydrox/Simet LIQ 30 ML UDC PO PRN (20:28)
[2019-11-28] MEDS ORDERED: Magnesium Hydroxide LIQ 30 ML UDC PO PRN (21:48)
[2019-11-29] MEDS: Heparin 5000 UNITS/ML 1 mL VIAL SUBCUT SCH ×2 (06:05→13:23)
[2019-11-29 06:40] LABS: Hematocrit 47 % (35-47); Hemoglobin 16.1 g/dL (12.0-16.0); Mean Corpuscular HGB Conc 34 g/dL (31-36); Mean Corpuscular Hemoglobin 29 pg (27-31); Mean Corpuscular Volume 85 fL (80-97); Mean Platelet Volume 7.9 fL (7.4-10.4); Platelet Count 306 10^3/uL (150-450); Red Blood Count 5.56 10^6 /uL (3.70-4.87); Red Cell Distribution Width 16 % (10-15); White Blood Count 14.8 10^3/uL (3.5-10.8)
[2019-11-29 07:09] LABS: Albumin/Globulin Ratio 1.3 (1-3); BUN/Creatinine Ratio 23.8 (8-20); Calcium 9.4 mg/dL (8.6-10.3); EGFR African American 62.5 (>60); EGFR Non-African American 51.7 (>60); Globulin 3.1 g/dL (2-4); Indirect Bilirubin 0.5 mg/dL (0.3-1.0); Potassium 4.1 mmol/L (3.5-5.0); Total Bilirubin 0.6 mg/dL (0.2-1.0); Total Protein 7.1 g/dL (6.4-8.9)
[2019-11-29] MEDS: Cefepime 1 GM in Dextrose 1 GM/50 ML BAG IV SCH ×2 (08:31→20:19)
[2019-11-29] MEDS: Empaglifozin 10 mg TAB (NF) PO SCH (08:31)
[2019-11-29] MEDS: Linaclotide 290 mcg CAP (NF) PO SCH (08:32)
[2019-11-29] MEDS ORDERED: Lactated Ringers 500 ml BAG 500 ML IV ONE (08:34)
[2019-11-29] MEDS: Insulin GLARGINE 100 un/ml 10 ml VIAL SUBCUT SCH (15:57)
[2019-11-29] MEDS ORDERED: HYDROmorphone 8mg TAB (NF) PO PRN (21:18)
[2019-11-29] MEDS: Enoxaparin 40 MG/0.4 ML SYR SUBCUT SCH (22:22)
[2019-11-29] MEDS: CAMPHOR MENTHOL TOPICAL SCH (23:07)
[2019-11-30 07:48] LABS: BUN/Creatinine Ratio 32.6 (8-20); Calcium 9.2 mg/dL (8.6-10.3); EGFR African American 78.7 (>60); Magnesium 2.6 mg/dL (1.9-2.7); Potassium 4.6 mmol/L (3.5-5.0)
[2019-11-30 08:09] LABS: Hematocrit 46 % (35-47); Hemoglobin 15.3 g/dL (12.0-16.0); Mean Corpuscular HGB Conc 33 g/dL (31-36); Mean Corpuscular Hemoglobin 28 pg (27-31); Mean Corpuscular Volume 86 fL (80-97); Mean Platelet Volume 8.1 fL (7.4-10.4); Platelet Count 269 10^3/uL (150-450); Red Blood Count 5.42 10^6 /uL (3.70-4.87); Red Cell Distribution Width 16 % (10-15); White Blood Count 10.5 10^3/uL (3.5-10.8)
[2019-11-30] MEDS: CAMPHOR MENTHOL TOPICAL SCH ×2 (08:25→20:31)
[2019-11-30] MEDS: Linaclotide 290 mcg CAP (NF) PO SCH (08:27)
[2019-11-30] MEDS: Empaglifozin 10 mg TAB (NF) PO SCH (08:27)
[2019-11-30] MEDS: Cefepime 1 GM in Dextrose 1 GM/50 ML BAG IV SCH (09:19)
[2019-11-30] MEDS: Insulin GLARGINE 100 un/ml 10 ml VIAL SUBCUT SCH (14:40)
[2019-11-30] MEDS ORDERED: Analgesic BALM 114 GM TOPICAL PRN (21:43)
[2019-11-30] MEDS: Enoxaparin 40 MG/0.4 ML SYR SUBCUT SCH (22:24)
[2019-11-30] MEDS: Lidocaine PATCH 5% PATCH TRANSDERM SCH (22:28)
[2019-12-01 07:02] LABS: BUN/Creatinine Ratio 24.8 (8-20); Calcium 9.6 mg/dL (8.6-10.3); EGFR African American 65.4 (>60); Potassium 4.6 mmol/L (3.5-5.0)
[2019-12-01] MEDS: Empaglifozin 10 mg TAB (NF) PO SCH (07:22)
[2019-12-01] MEDS: Linaclotide 290 mcg CAP (NF) PO SCH (08:25)
[2019-12-01] MEDS: Lidocaine PATCH 5% PATCH TRANSDERM SCH (08:35)
[2019-12-01] MEDS: CAMPHOR MENTHOL TOPICAL SCH (08:39)
[2019-12-01 11:32] VITALS: BP 110/63
[2019-12-01] MEDS ORDERED: Lidocaine Patch REMOVE PATCH PATCH OFF SCH (21:00)
== END 2019-12-01 14:25 | disposition home health service (06) | DRG 638 ==
LOC: ED 23:53 → MCHOB 11-25 06:50 → ICU 11-25 06:56 → MED 11-26 15:34
PROVIDERS: ADMIT Hospitalist; ATTEND Internal Medicine

== ENCOUNTER 2020-02-01 11:03 | Observation (INO) ==
[2020-02-01] MEDS ORDERED: NS 0.9% 1000 ml BAG 1,000 ML IV ONE ×2 (11:23→13:29)
[2020-02-01 12:22] LABS: ABS Lymphocytes 3.5 10^3/ul (1.0-4.8); ABS Neutrophils 7.2 10^3/ul (1.5-7.7); Eosinophil % 0.2 %; Hematocrit 54 % (35-47); Hemoglobin 17.5 g/dL (12.0-16.0); Lymphocyte % 29.7 %; Mean Corpuscular HGB Conc 33 g/dL (31-36); Mean Corpuscular Hemoglobin 27 pg (27-31); Mean Corpuscular Volume 83 fL (80-97); Nucleated Red Blood Cells % 0.1; Platelet Count 278 10^3/uL (150-450); Red Blood Count 6.46 10^6 /uL (3.70-4.87); Red Cell Distribution Width 18 % (10-15); White Blood Count 11.8 10^3/uL (3.5-10.8)
[2020-02-01 12:37] LABS: Influenza A Molecular Negative (Negative); Influenza B Molecular Negative (Negative)
[2020-02-01 13:05] LABS: Albumin 4.3 g/dL (3.2-5.2); Albumin/Globulin Ratio 1.1 (1-3); BUN/Creatinine Ratio 36.6 (8-20); C Reactive Protein 2.07 mg/L (<8.01); Calcium 9.9 mg/dL (8.6-10.3); EGFR African American 65.4 (>60); Globulin 3.9 g/dL (2-4); Magnesium 2.4 mg/dL (1.9-2.7); Potassium 3.6 mmol/L (3.5-5.0); Total Bilirubin 0.9 mg/dL (0.2-1.0); Total Protein 8.2 g/dL (6.4-8.9)
[2020-02-01 13:06] LABS: Troponin I 0.01 ng/mL (<0.03)
[2020-02-01] MEDS ORDERED: Potassium Chlor 20 meq TAB.ER PO ONE (13:29)
[2020-02-01 15:04] LABS: Urine Appearance Cloudy; Urine Bilirubin Negative (Negative); Urine Blood Negative (Negative); Urine Color Yellow; Urine Glucose 3+(>=500 mg/dL) (Negative); Urine Ketones Negative (Negative); Urine Nitrite Negative (Negative); Urine Protein 1+(30 mg/dL) (Negative); Urine Specific Gravity 1.023 (1.010-1.030); Urine Urobilinogen Negative (Negative)
[2020-02-01 15:07] LABS: Urine Bacteria 1+ (Absent); Urine Red Blood Cell Trace(0-2/hpf) (Absent); Urine White Blood Cell 1+(6-10/hpf) (Absent)
[2020-02-01] MEDS ORDERED: Lactated Ringers 1000 ml BAG 1,000 ML IV ONE (15:17)
[2020-02-01] MEDS ORDERED: Dextrose 50% Syringe 50 ml 25 GM/50 ML SYRINGE IV PUSH PRN ×2 (15:17→15:40)
[2020-02-01] MEDS ORDERED: Calcium Carb (TUMS) 500 mg CHEW TAB PO PRN (16:37)
[2020-02-01] MEDS: Enoxaparin 40 MG/0.4 ML SYR SUBCUT SCH (17:46)
[2020-02-01] MEDS ORDERED: Insulin GLARGINE 100 un/ml 10 ml VIAL SUBCUT SCH (21:00)
[2020-02-02 05:48] LABS: ABS Lymphocytes 3.9 10^3/ul (1.0-4.8); ABS Neutrophils 6.9 10^3/ul (1.5-7.7); Eosinophil % 0.2 %; Hematocrit 49 % (35-47); Hemoglobin 15.8 g/dL (12.0-16.0); Lymphocyte % 32.6 %; Mean Corpuscular HGB Conc 33 g/dL (31-36); Mean Corpuscular Hemoglobin 27 pg (27-31); Mean Corpuscular Volume 82 fL (80-97); Mean Platelet Volume 7.6 fL (7.4-10.4); Platelet Count 230 10^3/uL (150-450); Red Blood Count 5.89 10^6 /uL (3.70-4.87); Red Cell Distribution Width 18 % (10-15); White Blood Count 11.8 10^3/uL (3.5-10.8)
[2020-02-02 06:07] LABS: BUN/Creatinine Ratio 26.1 (8-20); Calcium 8.9 mg/dL (8.6-10.3); EGFR African American 76.6 (>60); EGFR Non-African American 63.3 (>60); Magnesium 2.2 mg/dL (1.9-2.7)
[2020-02-02 06:19] LABS: Potassium 4.1 mmol/L (3.5-5.0)
[2020-02-02] MEDS ORDERED: Linaclotide 290 mcg CAP (NF) PO SCH (09:00)
[2020-02-02 16:04] VITALS: BP 127/65
[2020-02-02] MEDS: Enoxaparin 40 MG/0.4 ML SYR SUBCUT SCH (16:06)
== END 2020-02-02 19:00 | disposition home or self-care (01) ==
LOC: ED 11:03 → MED 11:03
PROVIDERS: ADMIT Student in an Organized Health Care Education/Training Program; ATTEND Internal Medicine

== ENCOUNTER 2020-02-04 18:09 | Inpatient (IN) ==
[2020-02-04] MEDS ORDERED: Tetan/Diph/Pertus SYR(Tdap) 0.5 ML SYR(BOOSTRIX) use SYR contains LATEX IM ONE (18:58)
[2020-02-04] MEDS ORDERED: Lidocaine 1% w EPI 1:100,000 MDV 20 ML VIAL INJ ONE (19:04)
[2020-02-04] MEDS ORDERED: Iodixanol (CONTRAST) 320 MG/ML 100 ML SDV IV ONE (19:05)
[2020-02-04 19:41] LABS: ABS Eosinophils 0.2 10^3/ul (0-0.6); ABS Lymphocytes 4.3 10^3/ul (1.0-4.8); ABS Monocytes 1.2 10^3/ul (0-0.8); ABS Neutrophils 7.7 10^3/ul (1.5-7.7); Eosinophil % 1.3 %; Hematocrit 43 % (35-47); Lymphocyte % 32.3 %; Mean Corpuscular HGB Conc 33 g/dL (31-36); Mean Corpuscular Hemoglobin 27 pg (27-31); Mean Corpuscular Volume 84 fL (80-97); Mean Platelet Volume 7.7 fL (7.4-10.4); Platelet Count 253 10^3/uL (150-450); Red Blood Count 5.16 10^6 /uL (3.70-4.87); Red Cell Distribution Width 19 % (10-15); White Blood Count 13.4 10^3/uL (3.5-10.8)
[2020-02-04 19:47] LABS: INR 1.18 (0.82-1.09)
[2020-02-04 19:59] LABS: Albumin 3.4 g/dL (3.2-5.2); Albumin/Globulin Ratio 1.3 (1-3); BUN/Creatinine Ratio 28.6 (8-20); Calcium 8.9 mg/dL (8.6-10.3); Globulin 2.6 g/dL (2-4); Magnesium 2.1 mg/dL (1.9-2.7); Potassium 3.6 mmol/L (3.5-5.0); Total Bilirubin 0.6 mg/dL (0.2-1.0)
[2020-02-04 22:22] LABS: Urine Appearance Cloudy; Urine Bilirubin Negative (Negative); Urine Blood Negative (Negative); Urine Color Yellow; Urine Glucose Negative (Negative); Urine Ketones Negative (Negative); Urine Nitrite Positive (Negative); Urine Protein Negative (Negative); Urine Specific Gravity 1.024 (1.010-1.030); Urine Urobilinogen Negative (Negative)
[2020-02-04] MEDS ORDERED: cefTRIAXone 1 gm/50 mL NS BAG 1 GM/50 ML BAG IV ONE (22:28)
[2020-02-04 22:45] LABS: Urine Bacteria 1+ (Absent); Urine Red Blood Cell Trace(0-2/hpf) (Absent); Urine White Blood Cell 3+(>20/hpf) (Absent)
[2020-02-05] MEDS ORDERED: Ondansetron 4 mg VIAL 2 MG/ML 2 ml VIAL IV PRN (00:17)
[2020-02-05] MEDS ORDERED: Dextrose 50% Syringe 50 ml 25 GM/50 ML SYRINGE IV PUSH PRN (00:21)
[2020-02-05] MEDS ORDERED: HYDROmorphone 0.5 MG/0.5 ML SYRINGE IV ONE (00:37)
[2020-02-05] MEDS ORDERED: HYDROmorphone 8mg TAB (NF) PO PRN (00:38)
[2020-02-05] MEDS ORDERED: Insulin GLARGINE 100 un/ml 10 ml VIAL SUBCUT SCH (01:00)
[2020-02-05 02:38] LABS: Activated Partial Thrombo Time 27.8 seconds (26.0-38.0); INR 1.16 (0.82-1.09)
[2020-02-05] MEDS: NS 0.9% 1000 ml BAG 1,000 ML IV SCH ×3 (02:46→23:21)
[2020-02-05] MEDS: HYDROmorphone 8mg TAB (NF) PO PRN ×3 (05:56→18:34)
[2020-02-05] MEDS: Heparin 5000 UNITS/ML 1 mL VIAL SUBCUT SCH ×3 (05:57→22:01)
[2020-02-05 07:25] LABS: INR 1.1 (0.82-1.09)
[2020-02-05 07:46] LABS: Troponin I 0.01 ng/mL (<0.03)
[2020-02-05 07:53] LABS: Calcium 8.3 mg/dL (8.6-10.3); Potassium 3.9 mmol/L (3.5-5.0)
[2020-02-05 07:58] LABS: BUN/Creatinine Ratio 27.7 (8-20); EGFR African American 65.4 (>60)
[2020-02-05 08:22] LABS: ABS Eosinophils 0.1 10^3/ul (0-0.6); ABS Lymphocytes 3.6 10^3/ul (1.0-4.8); ABS Neutrophils 7.9 10^3/ul (1.5-7.7); Eosinophil % 1.1 %; Hematocrit 43 % (35-47); Hemoglobin 13.9 g/dL (12.0-16.0); Lymphocyte % 28.8 %; Mean Corpuscular HGB Conc 33 g/dL (31-36); Mean Corpuscular Hemoglobin 27 pg (27-31); Mean Corpuscular Volume 83 fL (80-97); Mean Platelet Volume 8.3 fL (7.4-10.4); Platelet Count 241 10^3/uL (150-450); Red Blood Count 5.09 10^6 /uL (3.70-4.87); Red Cell Distribution Width 19 % (10-15); White Blood Count 12.7 10^3/uL (3.5-10.8)
[2020-02-05] MEDS: CMC: LINACLOTIDE 72 MCG CAP (NF) PO SCH (10:45)
[2020-02-05] MEDS: cefTRIAXone 1 gm/50 mL NS BAG 1 GM/50 ML BAG IVPB SCH (22:00)
[2020-02-06] MEDS: HYDROmorphone 8mg TAB (NF) PO PRN ×4 (00:31→21:40)
[2020-02-06] MEDS: Heparin 5000 UNITS/ML 1 mL VIAL SUBCUT SCH ×3 (06:21→21:39)
[2020-02-06] MEDS: CMC: LINACLOTIDE 72 MCG CAP (NF) PO SCH (08:32)
[2020-02-06] MEDS ORDERED: Magnesium Hydroxide LIQ 30 ML UDC PO PRN (12:25)
[2020-02-06] MEDS: cefTRIAXone 1 gm/50 mL NS BAG 1 GM/50 ML BAG IVPB SCH (21:41)
[2020-02-06] MEDS ORDERED: Insulin GLARGINE 100 un/ml 10 ml VIAL SUBCUT SCH (22:00)
[2020-02-07] MEDS: HYDROmorphone 8mg TAB (NF) PO PRN ×3 (03:59→21:18)
[2020-02-07] MEDS: Heparin 5000 UNITS/ML 1 mL VIAL SUBCUT SCH ×3 (06:24→21:18)
[2020-02-07] MEDS: CMC: LINACLOTIDE 72 MCG CAP (NF) PO SCH (08:29)
[2020-02-07 09:09] LABS: ABS Eosinophils 0.1 10^3/ul (0-0.6); ABS Monocytes 0.7 10^3/ul (0-0.8); ABS Neutrophils 3.6 10^3/ul (1.5-7.7); Eosinophil % 1.8 %; Hematocrit 43 % (35-47); Hemoglobin 13.8 g/dL (12.0-16.0); Lymphocyte % 40.7 %; Mean Corpuscular HGB Conc 32 g/dL (31-36); Mean Corpuscular Hemoglobin 27 pg (27-31); Mean Corpuscular Volume 85 fL (80-97); Nucleated Red Blood Cells % 0.1; Platelet Count 186 10^3/uL (150-450); Red Blood Count 5.09 10^6 /uL (3.70-4.87); Red Cell Distribution Width 19 % (10-15); White Blood Count 7.4 10^3/uL (3.5-10.8)
[2020-02-07 09:26] LABS: BUN/Creatinine Ratio 21.6 (8-20); EGFR African American 76.6 (>60); EGFR Non-African American 63.3 (>60); Potassium 4.5 mmol/L (3.5-5.0)
[2020-02-07] MEDS: cefTRIAXone 1 gm/50 mL NS BAG 1 GM/50 ML BAG IVPB SCH (21:17)
[2020-02-07] MEDS ORDERED: Insulin GLARGINE 100 un/ml 10 ml VIAL SUBCUT SCH (22:00)
[2020-02-08] MEDS: Heparin 5000 UNITS/ML 1 mL VIAL SUBCUT SCH ×3 (05:33→20:03)
[2020-02-08 06:01] LABS: Hematocrit 39 % (35-47); Mean Corpuscular HGB Conc 33 g/dL (31-36); Mean Corpuscular Hemoglobin 28 pg (27-31); Mean Corpuscular Volume 83 fL (80-97); Mean Platelet Volume 7.5 fL (7.4-10.4); Platelet Count 213 10^3/uL (150-450); Red Blood Count 4.68 10^6 /uL (3.70-4.87); Red Cell Distribution Width 20 % (10-15); White Blood Count 8.2 10^3/uL (3.5-10.8)
[2020-02-08 07:04] LABS: ABS Eosinophils 0.1 10^3/ul (0-0.6); ABS Lymphocytes 3.1 10^3/ul (1.0-4.8); ABS Monocytes 0.7 10^3/ul (0-0.8); ABS Neutrophils 4.3 10^3/ul (1.5-7.7); Eosinophil % 1.4 %; Lymphocyte % 37.3 %
[2020-02-08] MEDS: CMC: LINACLOTIDE 72 MCG CAP (NF) PO SCH (08:19)
[2020-02-08] MEDS: HYDROmorphone 8mg TAB (NF) PO PRN ×3 (08:20→23:24)
[2020-02-08] MEDS: Insulin GLARGINE 100 un/ml 10 ml VIAL SUBCUT SCH (21:28)
[2020-02-08] MEDS: cefTRIAXone 1 gm/50 mL NS BAG 1 GM/50 ML BAG IVPB SCH (21:29)
[2020-02-09] MEDS: HYDROmorphone 8mg TAB (NF) PO PRN ×3 (05:45→18:32)
[2020-02-09] MEDS: Heparin 5000 UNITS/ML 1 mL VIAL SUBCUT SCH ×3 (05:46→20:09)
[2020-02-09] MEDS: CMC: LINACLOTIDE 72 MCG CAP (NF) PO SCH (11:01)
[2020-02-09] MEDS: Insulin GLARGINE 100 un/ml 10 ml VIAL SUBCUT SCH (20:10)
[2020-02-09] MEDS: cefTRIAXone 1 gm/50 mL NS BAG 1 GM/50 ML BAG IVPB SCH (22:36)
[2020-02-10] MEDS: HYDROmorphone 8mg TAB (NF) PO PRN ×3 (05:03→17:58)
[2020-02-10] MEDS: Heparin 5000 UNITS/ML 1 mL VIAL SUBCUT SCH (05:03)
[2020-02-10] MEDS: CMC: LINACLOTIDE 72 MCG CAP (NF) PO SCH (08:40)
[2020-02-10] MEDS ORDERED: Insulin GLARGINE 100 un/ml 10 ml VIAL SUBCUT SCH (09:00)
[2020-02-10] MEDS: Fluticasone NASAL SPRAY 50MCG 16 gm SPRAY BTL BOTH NARES SCH (12:03)
[2020-02-10] MEDS: Enoxaparin 40 MG/0.4 ML SYR SUBCUT SCH (20:46)
[2020-02-10] MEDS: Insulin GLARGINE 100 un/ml 10 ml VIAL SUBCUT SCH (20:47)
[2020-02-10] MEDS: cefTRIAXone 1 gm/50 mL NS BAG 1 GM/50 ML BAG IVPB SCH (22:22)
[2020-02-11] MEDS: HYDROmorphone 8mg TAB (NF) PO PRN ×4 (00:26→22:07)
[2020-02-11] MEDS: CMC: LINACLOTIDE 72 MCG CAP (NF) PO SCH (07:55)
[2020-02-11] MEDS: Fluticasone NASAL SPRAY 50MCG 16 gm SPRAY BTL BOTH NARES SCH (07:56)
[2020-02-11] MEDS: Insulin GLARGINE 100 un/ml 10 ml VIAL SUBCUT SCH (22:08)
[2020-02-11] MEDS: Enoxaparin 40 MG/0.4 ML SYR SUBCUT SCH (22:08)
[2020-02-12] MEDS: HYDROmorphone 8mg TAB (NF) PO PRN ×3 (08:17→20:21)
[2020-02-12] MEDS: CMC: LINACLOTIDE 72 MCG CAP (NF) PO SCH (08:19)
[2020-02-12] MEDS: Fluticasone NASAL SPRAY 50MCG 16 gm SPRAY BTL BOTH NARES SCH ×2 (08:37→20:27)
[2020-02-12] MEDS: Enoxaparin 40 MG/0.4 ML SYR SUBCUT SCH (20:20)
[2020-02-12] MEDS: Insulin GLARGINE 100 un/ml 10 ml VIAL SUBCUT SCH (20:21)
[2020-02-13] MEDS: HYDROmorphone 8mg TAB (NF) PO PRN ×3 (05:00→20:57)
[2020-02-13 05:46] LABS: Hematocrit 38 % (35-47); Hemoglobin 12.4 g/dL (12.0-16.0); Mean Corpuscular HGB Conc 33 g/dL (31-36); Mean Corpuscular Hemoglobin 27 pg (27-31); Mean Corpuscular Volume 83 fL (80-97); Mean Platelet Volume 7.2 fL (7.4-10.4); Platelet Count 180 10^3/uL (150-450); Red Cell Distribution Width 19 % (10-15); White Blood Count 8.4 10^3/uL (3.5-10.8)
[2020-02-13 06:08] LABS: BUN/Creatinine Ratio 35.9 (8-20); Calcium 9.2 mg/dL (8.6-10.3); EGFR African American 72.8 (>60); EGFR Non-African American 60.2 (>60); Magnesium 1.8 mg/dL (1.9-2.7); Potassium 4.2 mmol/L (3.5-5.0)
[2020-02-13] MEDS: CMC: LINACLOTIDE 72 MCG CAP (NF) PO SCH (08:07)
[2020-02-13] MEDS ORDERED: Magnesium Sulfate IV 1GM/100ML 1 GM/100 ML BAG IV ONE (08:30)
[2020-02-13] MEDS: Enoxaparin 40 MG/0.4 ML SYR SUBCUT SCH (21:17)
[2020-02-13] MEDS: Insulin GLARGINE 100 un/ml 10 ml VIAL SUBCUT SCH (21:18)
[2020-02-13] MEDS: Fluticasone NASAL SPRAY 50MCG 16 gm SPRAY BTL BOTH NARES SCH (22:51)
[2020-02-14] MEDS: HYDROmorphone 8mg TAB (NF) PO PRN ×2 (06:17→13:15)
[2020-02-14] MEDS: CMC: LINACLOTIDE 72 MCG CAP (NF) PO SCH (08:23)
[2020-02-14] MEDS: Enoxaparin 40 MG/0.4 ML SYR SUBCUT SCH (20:55)
[2020-02-14] MEDS: Insulin GLARGINE 100 un/ml 10 ml VIAL SUBCUT SCH (20:56)
[2020-02-14] MEDS: Fluticasone NASAL SPRAY 50MCG 16 gm SPRAY BTL BOTH NARES SCH (20:56)
[2020-02-15] MEDS: HYDROmorphone 8mg TAB (NF) PO PRN ×3 (06:13→21:38)
[2020-02-15 07:22] LABS: BUN/Creatinine Ratio 36.1 (8-20); Blood Urea Nitrogen 35 mg/dL (6-24); CO2 Carbon Dioxide 30 mmol/L (22-32); Calcium 9.4 mg/dL (8.6-10.3); Chloride 103 mmol/L (101-111); EGFR African American 68.5 (>60); EGFR Non-African American 56.6 (>60); Glucose 166 mg/dL (70-100); Magnesium 2.1 mg/dL (1.9-2.7); Sodium 138 mmol/L (135-145)
[2020-02-15 07:32] LABS: Anion Gap 5 mmol/L (2-11)
[2020-02-15] MEDS: CMC: LINACLOTIDE 72 MCG CAP (NF) PO SCH (08:54)
[2020-02-15] MEDS: Enoxaparin 40 MG/0.4 ML SYR SUBCUT SCH (21:31)
[2020-02-15] MEDS: Fluticasone NASAL SPRAY 50MCG 16 gm SPRAY BTL BOTH NARES SCH (21:32)
[2020-02-15] MEDS: Insulin GLARGINE 100 un/ml 10 ml VIAL SUBCUT SCH (21:38)
[2020-02-16] MEDS: HYDROmorphone 8mg TAB (NF) PO PRN ×2 (02:56→09:50)
[2020-02-16] MEDS: CMC: LINACLOTIDE 72 MCG CAP (NF) PO SCH (09:05)
[2020-02-16 12:18] VITALS: BP 136/70
== END 2020-02-16 14:08 | disposition home health service (06) | DRG 312 ==
LOC: MEDTELE 18:09 → ED 18:09 → MEDTELE 02-07 10:15
PROVIDERS: ADMIT Internal Medicine; ATTEND Internal Medicine

== ENCOUNTER 2020-02-18 22:07 | Inpatient (IN) ==
[2020-02-18] MEDS ORDERED: NS 0.9% 1000 ml BAG 1,000 ML IV ONE (22:53)
[2020-02-18 23:07] LABS: Urine Appearance Clear; Urine Bilirubin Negative (Negative); Urine Blood 2+ (Negative); Urine Color Straw; Urine Glucose 3+(>=500 mg/dL) (Negative); Urine Ketones Negative (Negative); Urine Nitrite Negative (Negative); Urine Protein Negative (Negative); Urine Specific Gravity 1.016 (1.010-1.030); Urine Urobilinogen Negative (Negative)
[2020-02-18 23:23] LABS: Urine Benzodiazepine Screen None Detected (None Detect); Urine Cannabinoids Screen None Detected (None Detect); Urine Opiates Screen Presumptive Positive (None Detect)
[2020-02-18 23:26] LABS: Urine Bacteria Absent (Absent); Urine Red Blood Cell Trace(0-2/hpf) (Absent); Urine Squamous Epithelial Cell Present (Absent); Urine White Blood Cell Trace(0-5/hpf) (Absent)
[2020-02-19 00:15] LABS: INR 0.91 (0.82-1.09)
[2020-02-19 00:17] LABS: ABS Lymphocytes 0.8 10^3/ul (1.0-4.8); ABS Monocytes 0.5 10^3/ul (0-0.8); ABS Neutrophils 7.2 10^3/ul (1.5-7.7); Eosinophil % 0.2 %; Hematocrit 52 % (35-47); Hemoglobin 14.4 g/dL (12.0-16.0); Lymphocyte % 9.1 %; Mean Corpuscular HGB Conc 27 g/dL (31-36); Mean Corpuscular Hemoglobin 28 pg (27-31); Mean Corpuscular Volume 100 fL (80-97); Mean Platelet Volume 8.6 fL (7.4-10.4); Platelet Count 187 10^3/uL (150-450); Red Blood Count 5.22 10^6 /uL (3.70-4.87); Red Cell Distribution Width 19 % (10-15); White Blood Count 8.4 10^3/uL (3.5-10.8)
[2020-02-19 00:25] LABS: Alcohol, S < 10 mg/dL (<10)
[2020-02-19 00:27] LABS: ALT 26 U/L (7-52); AST 14 U/L (13-39); Albumin 4.5 g/dL (3.2-5.2); Albumin/Globulin Ratio 1.4 (1-3); Alkaline Phosphatase 189 U/L (34-104); Anion Gap 10 mmol/L (2-11); BUN/Creatinine Ratio 34.3 (8-20); Blood Urea Nitrogen 34 mg/dL (6-24); CO2 Carbon Dioxide 34 mmol/L (22-32); Calcium 9.8 mg/dL (8.6-10.3); Chloride 89 mmol/L (101-111); EGFR African American 66.9 (>60); EGFR Non-African American 55.3 (>60); Globulin 3.3 g/dL (2-4); Potassium 3.9 mmol/L (3.5-5.0); Sodium 133 mmol/L (135-145); Total Protein 7.8 g/dL (6.4-8.9)
[2020-02-19 00:28] LABS: Troponin I 0.01 ng/mL (<0.03)
[2020-02-19 00:45] LABS: Glucose 819 mg/dL (70-100)
[2020-02-19] MEDS ORDERED: NS 0.9% 1000 ml BAG 1,000 ML IV ONE (01:05)
[2020-02-19 01:31] LABS: Albumin/Globulin Ratio 1.4 (1-3); BUN/Creatinine Ratio 33.3 (8-20); Calcium 9.1 mg/dL (8.6-10.3); EGFR African American 69.3 (>60); EGFR Non-African American 57.3 (>60); Globulin 2.9 g/dL (2-4); Potassium 3.9 mmol/L (3.5-5.0); Total Bilirubin 0.4 mg/dL (0.2-1.0); Total Protein 6.9 g/dL (6.4-8.9)
[2020-02-19] MEDS ORDERED: LORazepam 2 mg VIAL 1 ml IV PUSH ONE (02:03)
[2020-02-19] MEDS ORDERED: Lorazepam PYXIS KEY PRN (02:03)
[2020-02-19] MEDS ORDERED: NS 0.9% 1000 ml BAG 1,000 ML IV SCH (02:15)
[2020-02-19] MEDS ORDERED: Insulin Infusion 100unit/100mL 100 UNIT/100 ML BAG IV ONE (02:19)
[2020-02-19] MEDS ORDERED: Ondansetron ODT 4 mg TAB 4 MG TAB PO PRN (02:27)
[2020-02-19 04:50] LABS: ABS Lymphocytes 1.2 10^3/ul (1.0-4.8); ABS Monocytes 0.8 10^3/ul (0-0.8); ABS Neutrophils 7.2 10^3/ul (1.5-7.7); Hematocrit 45 % (35-47); Hemoglobin 13.7 g/dL (12.0-16.0); Lymphocyte % 13.3 %; Mean Corpuscular HGB Conc 30 g/dL (31-36); Mean Corpuscular Hemoglobin 27 pg (27-31); Mean Corpuscular Volume 90 fL (80-97); Platelet Count 192 10^3/uL (150-450); Red Blood Count 5.03 10^6 /uL (3.70-4.87); Red Cell Distribution Width 19 % (10-15); White Blood Count 9.3 10^3/uL (3.5-10.8)
[2020-02-19 05:07] LABS: BUN/Creatinine Ratio 31.1 (8-20); Calcium 9.5 mg/dL (8.6-10.3); EGFR African American 74.7 (>60); EGFR Non-African American 61.7 (>60); Potassium 4.1 mmol/L (3.5-5.0)
[2020-02-19] MEDS: Enoxaparin 40 MG/0.4 ML SYR SUBCUT SCH (05:38)
[2020-02-19] MEDS: Pantoprazole VIAL 40 MG VIAL IV SCH (05:44)
[2020-02-19] MEDS ORDERED: Ondansetron ODT 4 mg TAB 4 MG TAB ONE (06:50)
[2020-02-19 07:44] LABS: Magnesium 3.5 mg/dL (1.9-2.7); Phosphorus 4.9 mg/dL (2.5-5.0)
[2020-02-19] MEDS: D5W 1/2 NS KCl 20 meq 1000 ml 1,000 ML IV SCH ×3 (07:44→23:05)
[2020-02-19] MEDS ORDERED: Insulin GLARGINE 100 un/ml 10 ml VIAL SUBCUT ONE (09:04)
[2020-02-19] MEDS ORDERED: Dextrose 50% Syringe 50 ml 25 GM/50 ML SYRINGE IV PUSH PRN (09:29)
[2020-02-19 11:15] LABS: BUN/Creatinine Ratio 24.7 (8-20); Blood Urea Nitrogen 20 mg/dL (6-24); CO2 Carbon Dioxide 29 mmol/L (22-32); Calcium 7.5 mg/dL (8.6-10.3); Chloride 107 mmol/L (101-111); EGFR African American 84.3 (>60); EGFR Non-African American 69.7 (>60); Sodium 137 mmol/L (135-145)
[2020-02-19 11:58] LABS: Anion Gap 1 mmol/L (2-11); Glucose 910 mg/dL (70-100)
[2020-02-19 16:26] LABS: BUN/Creatinine Ratio 26.4 (8-20); Blood Urea Nitrogen 19 mg/dL (6-24); CO2 Carbon Dioxide 35 mmol/L (22-32); Calcium 9.3 mg/dL (8.6-10.3); Chloride 109 mmol/L (101-111); EGFR African American 96.6 (>60); EGFR Non-African American 79.9 (>60); Glucose 224 mg/dL (70-100)
[2020-02-19 16:28] LABS: Anion Gap 3 mmol/L (2-11); Sodium 147 mmol/L (135-145)
[2020-02-19] MEDS ORDERED: Ondansetron 4 mg VIAL 2 MG/ML 2 ml VIAL IV PRN (17:34)
[2020-02-19] MEDS: Butalb/Acetamin/Caff TAB 325-50-40MG PO PRN (20:24)
[2020-02-19] MEDS ORDERED: hydrALAZINE 20 mg/ml 1 ML Vial IV IV SLOW PU PRN (22:55)
[2020-02-20 05:39] LABS: ABS Eosinophils 0.2 10^3/ul (0-0.6); ABS Lymphocytes 4.2 10^3/ul (1.0-4.8); ABS Monocytes 0.9 10^3/ul (0-0.8); ABS Neutrophils 5.4 10^3/ul (1.5-7.7); Eosinophil % 1.5 %; Hematocrit 39 % (35-47); Hemoglobin 12.4 g/dL (12.0-16.0); Mean Corpuscular HGB Conc 32 g/dL (31-36); Mean Corpuscular Hemoglobin 27 pg (27-31); Mean Corpuscular Volume 85 fL (80-97); Mean Platelet Volume 7.4 fL (7.4-10.4); Platelet Count 182 10^3/uL (150-450); Red Blood Count 4.53 10^6 /uL (3.70-4.87); Red Cell Distribution Width 19 % (10-15); White Blood Count 10.7 10^3/uL (3.5-10.8)
[2020-02-20] MEDS: Pantoprazole VIAL 40 MG VIAL IV SCH (05:57)
[2020-02-20 05:59] LABS: Albumin 3.4 g/dL (3.2-5.2); Albumin/Globulin Ratio 1.3 (1-3); BUN/Creatinine Ratio 21.9 (8-20); EGFR African American 95.1 (>60); EGFR Non-African American 78.6 (>60); Globulin 2.7 g/dL (2-4); Potassium 4.6 mmol/L (3.5-5.0); Total Bilirubin 0.4 mg/dL (0.2-1.0); Total Protein 6.1 g/dL (6.4-8.9)
[2020-02-20] MEDS: D5W 1/2 NS KCl 20 meq 1000 ml 1,000 ML IV SCH (06:06)
[2020-02-20] MEDS: Enoxaparin 40 MG/0.4 ML SYR SUBCUT SCH (09:08)
[2020-02-20] MEDS: SUMAtriptan Subcut 6 MG/0.5 ML VIAL SUBCUT PRN (14:09)
[2020-02-20] MEDS: Insulin ISOPH/REG 70/30 SUBCUT SCH (17:24)
[2020-02-20] MEDS: Butalb/Acetamin/Caff TAB 325-50-40MG PO PRN (20:58)
[2020-02-21] MEDS: SUMAtriptan Subcut 6 MG/0.5 ML VIAL SUBCUT PRN ×2 (00:02→17:13)
[2020-02-21 06:29] LABS: ABS Eosinophils 0.2 10^3/ul (0-0.6); ABS Lymphocytes 4.1 10^3/ul (1.0-4.8); ABS Monocytes 0.9 10^3/ul (0-0.8); ABS Neutrophils 4.7 10^3/ul (1.5-7.7); Eosinophil % 2.1 %; Hematocrit 42 % (35-47); Hemoglobin 13.8 g/dL (12.0-16.0); Lymphocyte % 40.9 %; Mean Corpuscular HGB Conc 33 g/dL (31-36); Mean Corpuscular Hemoglobin 27 pg (27-31); Mean Corpuscular Volume 84 fL (80-97); Mean Platelet Volume 7.5 fL (7.4-10.4); Platelet Count 209 10^3/uL (150-450); Red Blood Count 5.05 10^6 /uL (3.70-4.87); Red Cell Distribution Width 19 % (10-15); White Blood Count 9.9 10^3/uL (3.5-10.8)
[2020-02-21 06:49] LABS: BUN/Creatinine Ratio 21.6 (8-20); Calcium 9.7 mg/dL (8.6-10.3); EGFR African American 93.6 (>60); EGFR Non-African American 77.4 (>60); Potassium 3.7 mmol/L (3.5-5.0)
[2020-02-21] MEDS: Insulin ISOPH/REG 70/30 SUBCUT SCH ×2 (08:44→17:12)
[2020-02-21] MEDS: Enoxaparin 40 MG/0.4 ML SYR SUBCUT SCH (08:47)
[2020-02-21] MEDS: Butalb/Acetamin/Caff TAB 325-50-40MG PO PRN (08:57)
[2020-02-21] MEDS: Lidocaine PATCH 5% PATCH TRANSDERM SCH (08:59)
[2020-02-21] MEDS ORDERED: Fluticasone NASAL SPRAY 50MCG 16 gm SPRAY BTL BOTH NARES SCH (10:00)
[2020-02-21] MEDS: HYDROmorphone 8mg TAB (NF) PO PRN ×2 (10:52→17:14)
[2020-02-21] MEDS: Fluticasone NASAL SPRAY 50MCG 16 gm SPRAY BTL BOTH NARES SCH ×2 (10:52→20:55)
[2020-02-21] MEDS ORDERED: Ondansetron 4 mg VIAL 2 MG/ML 2 ml VIAL IV PRN (20:40)
[2020-02-21] MEDS: Lidocaine Patch REMOVE PATCH PATCH OFF SCH (20:57)
[2020-02-22] MEDS: Butalb/Acetamin/Caff TAB 325-50-40MG PO PRN (00:03)
[2020-02-22] MEDS: HYDROmorphone 8mg TAB (NF) PO PRN ×3 (02:26→19:35)
[2020-02-22] MEDS ORDERED: Pneumococcal Vac 23-Polyvalent IM ONE (09:00)
[2020-02-22] MEDS: Enoxaparin 40 MG/0.4 ML SYR SUBCUT SCH (09:36)
[2020-02-22] MEDS: Insulin ISOPH/REG 70/30 SUBCUT SCH ×2 (09:36→17:16)
[2020-02-22] MEDS: SUMAtriptan Subcut 6 MG/0.5 ML VIAL SUBCUT PRN (09:36)
[2020-02-22] MEDS: Lidocaine PATCH 5% PATCH TRANSDERM SCH (09:37)
[2020-02-22] MEDS: Fluticasone NASAL SPRAY 50MCG 16 gm SPRAY BTL BOTH NARES SCH ×2 (09:42→21:46)
[2020-02-22] MEDS: Lidocaine Patch REMOVE PATCH PATCH OFF SCH (22:29)
[2020-02-23] MEDS: Enoxaparin 40 MG/0.4 ML SYR SUBCUT SCH (08:09)
[2020-02-23] MEDS: Lidocaine PATCH 5% PATCH TRANSDERM SCH (08:10)
[2020-02-23] MEDS: Fluticasone NASAL SPRAY 50MCG 16 gm SPRAY BTL BOTH NARES SCH (08:10)
[2020-02-23] MEDS: HYDROmorphone 8mg TAB (NF) PO PRN (08:11)
[2020-02-23] MEDS: Insulin ISOPH/REG 70/30 SUBCUT SCH (08:11)
[2020-02-23 13:14] VITALS: BP 137/66
== END 2020-02-23 14:40 | disposition home health service (06) | DRG 70 ==
LOC: ED 22:07 → ICU 02-19 02:11 → MEDTELE 02-20 18:00
PROVIDERS: ADMIT Hospitalist; ATTEND Internal Medicine

== ENCOUNTER 2020-11-22 13:46 | Inpatient (IN) ==
[2020-11-22] MEDS ORDERED: Lactated Ringers 1000 ml BAG 1,000 ML IV ONE ×2 (13:51→13:54)
[2020-11-22 14:07] LABS: ABS Lymphocytes 2.4 10^3/ul (1.0-4.8); ABS Monocytes 2.3 10^3/ul (0-0.8); ABS Neutrophils 27.1 10^3/ul (1.5-7.7); Hematocrit 50 % (35-47); Hemoglobin 14.8 g/dL (12.0-16.0); Lymphocyte % 7.6 %; Mean Corpuscular HGB Conc 30 g/dL (31-36); Mean Corpuscular Hemoglobin 26 pg (27-31); Mean Corpuscular Volume 86 fL (80-97); Mean Platelet Volume 9.4 fL (7.4-10.4); Platelet Count 428 10^3/uL (150-450); Red Blood Count 5.81 10^6 /uL (3.70-4.87); Red Cell Distribution Width 18 % (10-15); White Blood Count 31.8 10^3/uL (3.5-10.8)
[2020-11-22] MEDS ORDERED: metroNIDAZOLE IV 500 MG/100ML 500 MG/100 ML BAG IVPB ONE (14:09)
[2020-11-22] MEDS ORDERED: Cefepime 2 GM in NS 0.9% 50 ML 50 ML IVPB ONE (14:09)
[2020-11-22] MEDS ORDERED: Vancomycin 1,250 MG in NS 0.9% 250 ml 250 ML IVPB ONE (14:10)
[2020-11-22] MEDS ORDERED: NS 0.9% 250 ml 250 ML ONE (14:17)
[2020-11-22] MEDS ORDERED: NS 0.9% 50 ML 50 ML ONE (14:17)
[2020-11-22 14:23] LABS: Rapid COVID-19 Molecular Undetected (Undetected)
[2020-11-22 14:33] LABS: ALT 24 U/L (7-52); Alkaline Phosphatase 210 U/L (35-149); Blood Urea Nitrogen 50 mg/dL (6-24); Calcium 9.1 mg/dL (8.6-10.3); Chloride 101 mmol/L (101-111); Creatine Kinase 1248 U/L (10-223)
[2020-11-22 14:36] LABS: Urine Appearance Clear; Urine Bilirubin Negative (Negative); Urine Blood 2+ (Negative); Urine Color Yellow; Urine Glucose 3+(>=500 mg/dL) (Negative); Urine Ketones 1+ (Negative); Urine Nitrite Negative (Negative); Urine Protein Negative (Negative); Urine Specific Gravity 1.026 (1.002-1.030); Urine Urobilinogen Negative (Negative)
[2020-11-22 14:38] LABS: Anion Gap 36 mmol/L (2-11); CO2 Carbon Dioxide 11 mmol/L (22-32); Sodium 148 mmol/L (135-145); Troponin I 0.96 ng/mL (<0.03)
[2020-11-22 14:43] LABS: Urine Bacteria Absent (Absent); Urine Red Blood Cell Trace(0-2/hpf) (Absent); Urine White Blood Cell Trace(0-5/hpf) (Absent)
[2020-11-22 15:00] LABS: Glucose 1162 mg/dL (70-100)
[2020-11-22] MEDS ORDERED: Insulin Infusion 100unit/100mL 100 UNIT/100 ML BAG IV ONE (15:02)
[2020-11-22 15:03] LABS: Acetaminophen < 15 mcg/mL; Salicylate < 2.50 mg/dL (<30)
[2020-11-22] MEDS ORDERED: LORazepam 2 mg VIAL 1 ml ONE (15:06)
[2020-11-22] MEDS ORDERED: Cefepime 2 GM IV - ED ONCE IV ONE (15:30)
[2020-11-22] MEDS ORDERED: LORazepam 2 mg VIAL 1 ml IV PUSH ONE (15:46)
[2020-11-22] MEDS ORDERED: Lorazepam PYXIS KEY PRN (15:46)
[2020-11-22] MEDS ORDERED: Iodixanol (CONTRAST) 320 MG/ML 100 ML SDV IV ONE (16:07)
[2020-11-22 16:31] LABS: PCO2 Arterial 28 mmHg (35-45); PO2 Arterial 80 mmHg (80-100)
[2020-11-22 16:45] LABS: Blood Urea Nitrogen 30 mg/dL (6-24)
[2020-11-22 16:50] LABS: Anion Gap 18 mmol/L (2-11); CO2 Carbon Dioxide 9 mmol/L (22-32); Calcium 4.4 mg/dL (8.6-10.3); Chloride 120 mmol/L (101-111); Glucose 637 mg/dL (70-100); Potassium 2.4 mmol/L (3.5-5.0); Sodium 147 mmol/L (135-145)
[2020-11-22] MEDS ORDERED: CALCIUM GLUCONATE 1GM/50ML NS 1 GM/50 ML BAG IV ONE (16:54)
[2020-11-22] MEDS: KCL 20 MEQ/100 ML IVPREMIX 20 MEQ/100 ML BAG IV SCH ×2 (17:17→22:00)
[2020-11-22] MEDS ORDERED: levETIRAcetam 500 MG IVPREMIX 500 MG/100 ML BAG IVPB ONE (17:47)
[2020-11-22] MEDS: NS 0.45% KCl 20 Meq 1000 ml 1,000 ML IV SCH (19:45)
[2020-11-22 19:52] LABS: Blood Urea Nitrogen 43 mg/dL (6-24); CO2 Carbon Dioxide 16 mmol/L (22-32); Sodium 143 mmol/L (135-145)
[2020-11-22 19:52] LABS: C Reactive Protein 37.39 mg/L (<8.01)
[2020-11-22 19:57] LABS: Anion Gap 11 mmol/L (2-11); Chloride 116 mmol/L (101-111)
[2020-11-22] MEDS ORDERED: Vancomycin per Pharmacy 1 EA NOTE FOLLOW UP SCH (20:00)
[2020-11-22 20:16] LABS: Troponin I 0.81 ng/mL (<0.03)
[2020-11-22 20:18] LABS: Glucose 792 mg/dL (70-100)
[2020-11-22 20:19] LABS: Glucose Confirmatory 792 mg/dL (70-100)
[2020-11-22 20:22] LABS: Alcohol, S < 13 mg/dL (<13)
[2020-11-22 21:41] LABS: Glucose Confirmatory 868 mg/dL (70-100)
[2020-11-22] MEDS ORDERED: Insulin REGULAR drip 100 units/100 ml per Titration Protocol IV SCH ×2 (23:00→23:38)
[2020-11-22 23:29] LABS: Blood Urea Nitrogen 48 mg/dL (6-24); CO2 Carbon Dioxide 17 mmol/L (22-32)
[2020-11-22 23:34] LABS: Anion Gap 22 mmol/L (2-11); Chloride 113 mmol/L (101-111); Glucose 771 mg/dL (70-100); Glucose Confirmatory 771 mg/dL (70-100); Sodium 152 mmol/L (135-145)
[2020-11-23 00:15] LABS: Glucose Confirmatory 743 mg/dL (70-100)
[2020-11-23] MEDS: Heparin 5000 UNITS/ML 1 mL VIAL SUBCUT SCH ×4 (00:45→20:16)
[2020-11-23 01:38] LABS: Glucose Confirmatory 638 mg/dL (70-100); Troponin I 0.87 ng/mL (<0.03)
[2020-11-23] MEDS: NS 0.45% KCl 20 Meq 1000 ml 1,000 ML IV SCH (01:53)
[2020-11-23 02:33] LABS: Glucose Confirmatory 592 mg/dL (70-100)
[2020-11-23] MEDS ORDERED: Succinylcholine 200 mg VIAL 20 mg/ml 10 ml VIAL (200 mg) ONE (03:31)
[2020-11-23] MEDS ORDERED: Rocuronium 50 mg VIAL 10 mg/ml 5 ml VIAL (50 mg) ONE (03:32)
[2020-11-23 03:34] LABS: CO2 Carbon Dioxide 20 mmol/L (22-32); Calcium 8.4 mg/dL (8.6-10.3)
[2020-11-23 03:40] LABS: Blood Urea Nitrogen 43 mg/dL (6-24); Glucose 495 mg/dL (70-100); Glucose Confirmatory 495 mg/dL (70-100)
[2020-11-23 03:41] LABS: Anion Gap 12 mmol/L (2-11); Chloride 118 mmol/L (101-111); Potassium 5.6 mmol/L (3.5-5.0); Sodium 150 mmol/L (135-145)
[2020-11-23] MEDS ORDERED: Etomidate 40 mg/20 ml (2 MG/ML) 20 ml VIAL (40 mg) ONE (03:42)
[2020-11-23 03:48] LABS: Troponin I 0.79 ng/mL (<0.03)
[2020-11-23] MEDS ORDERED: Midazolam 2 mg/2 ml VIAL 1 mg/ml 2 ml VIAL (2 mg) IV SLOW PU ONE ×2 (03:57→04:13)
[2020-11-23] MEDS ORDERED: Midazolam 5 mg/5 ml VIAL 1 mg/ml 5 ml VIAL (5 mg) ONE (03:58)
[2020-11-23] MEDS ORDERED: Dexmedetomidine 1,000 MCG in NS 0.9% 250 ml 240 ML IV SCH (04:00)
[2020-11-23] MEDS: Vancomycin 750 MG in NS 0.9% 250 ML IVPB SCH ×2 (04:29→15:36)
[2020-11-23 04:42] LABS: ABS Lymphocytes 2.1 10^3/ul (1.0-4.8); ABS Monocytes 0.9 10^3/ul (0-0.8); ABS Neutrophils 18.6 10^3/ul (1.5-7.7); Hematocrit 47 % (35-47); Lymphocyte % 9.6 %; Mean Corpuscular HGB Conc 32 g/dL (31-36); Mean Corpuscular Hemoglobin 25 pg (27-31); Mean Corpuscular Volume 79 fL (80-97); Mean Platelet Volume 8.5 fL (7.4-10.4); Platelet Count 368 10^3/uL (150-450); Red Blood Count 5.94 10^6 /uL (3.70-4.87); Red Cell Distribution Width 17 % (10-15); White Blood Count 21.7 10^3/uL (3.5-10.8)
[2020-11-23 05:02] LABS: PCO2 Arterial 35 mmHg (35-45); PO2 Arterial 103 mmHg (80-100)
[2020-11-23 05:02] LABS: Blood Urea Nitrogen 44 mg/dL (6-24); CO2 Carbon Dioxide 22 mmol/L (22-32); Calcium 8.8 mg/dL (8.6-10.3); Creatine Kinase 860 U/L (10-223); Glucose 466 mg/dL (70-100); Glucose Confirmatory 466 mg/dL (70-100)
[2020-11-23 05:05] LABS: Anion Gap 11 mmol/L (2-11); Chloride 119 mmol/L (101-111); Potassium 5.1 mmol/L (3.5-5.0); Sodium 152 mmol/L (135-145)
[2020-11-23] MEDS ORDERED: NS 0.9% 1000 ml BAG 1,000 ML IV SCH (05:15)
[2020-11-23] MEDS: Chlorhexidine MOUTHWASH 0.12% 15 ML UDC TOPICAL SCH ×5 (05:49→20:16)
[2020-11-23] MEDS ORDERED: Midazolam 50 MG VIAL IV DRIP 50 ML IV SCH ×2 (06:00→09:00)
[2020-11-23] MEDS: NS 0.45% 1000 ml BAG 1,000 ML IV SCH ×2 (06:15→10:53)
[2020-11-23] MEDS: Cefepime 2 GM in Dextrose 2 GM/50 ML BAG IV SCH ×3 (06:21→18:39)
[2020-11-23] MEDS ORDERED: Norepinephrine 16MCG/ML IVPRE 4,000 MCG/250 ML BAG IV ONE (06:34)
[2020-11-23] MEDS ORDERED: LORazepam 2 mg VIAL 1 ml ONE (06:37)
[2020-11-23] MEDS ORDERED: Lorazepam PYXIS KEY ONE (06:37)
[2020-11-23] MEDS ORDERED: Insulin GLARGINE 100 un/ml 10 ml VIAL ONE (06:39)
[2020-11-23] MEDS: LORazepam 2 mg VIAL 1 ml IV PUSH ONE (06:40)
[2020-11-23] MEDS ORDERED: Insulin GLARGINE 100 un/ml 10 ml VIAL SUBCUT ONE ×2 (07:00→11:24)
[2020-11-23] MEDS ORDERED: Norepinephrine 16MCG/ML IVPRE 4,000 MCG/250 ML BAG IV SCH (07:00)
[2020-11-23] MEDS ORDERED: Phenylephrine IV 50 MG in NS 0.9% 250 ml 245 ML IV SCH (07:00)
[2020-11-23] MEDS ORDERED: NS 0.45% 1000 ml BAG 1,000 ML IV SCH (07:00)
[2020-11-23] MEDS: Norepinephrine 16MCG/ML IVPRE 4,000 MCG/250 ML BAG IV SCH ×2 (08:11→10:54)
[2020-11-23] MEDS: levETIRAcetam 500 MG IVPREMIX 500 MG/100 ML BAG IV SCH ×2 (09:27→19:33)
[2020-11-23 09:31] LABS: Venous Bicarbonate HCO3 22.8 mmol/L (24-28)
[2020-11-23 09:47] LABS: Calcium 7.7 mg/dL (8.6-10.3); Magnesium 2.2 mg/dL (1.9-2.7); Phosphorus 2.3 mg/dL (2.5-5.0); Potassium 3.6 mmol/L (3.5-5.0)
[2020-11-23] MEDS ORDERED: NORMOSOL-R pH 7.4 1000 mL BAG 1,000 ML IV SCH ×2 (10:00→16:00)
[2020-11-23] MEDS: metroNIDAZOLE IV 500 MG/100ML 500 MG/100 ML BAG IVPB SCH ×2 (10:07→17:45)
[2020-11-23] MEDS: fentaNYL 100 mcg/2 ml 50 MCG/ML VIAL IV SLOW PU PRN ×4 (11:00→22:03)
[2020-11-23] MEDS: Pantoprazole VIAL 40 MG VIAL IV SCH (11:01)
[2020-11-23] MEDS ORDERED: Perflutren Lipid Microsphere 3 ML VIAL ONE (11:04)
[2020-11-23] MEDS ORDERED: KCL 20 MEQ/100 ML IVPREMIX 20 MEQ/100 ML BAG IV ONE ×2 (11:27→14:09)
[2020-11-23 13:56] LABS: Calcium 7.6 mg/dL (8.6-10.3); Magnesium 2.1 mg/dL (1.9-2.7); Potassium 3.4 mmol/L (3.5-5.0)
[2020-11-23] MEDS: Phenylephrine IV 50 MG in NS 0.9% 250 ml 245 ML IV SCH ×2 (16:14→22:04)
[2020-11-23 17:34] LABS: Calcium 7.4 mg/dL (8.6-10.3); Potassium 4.1 mmol/L (3.5-5.0)
[2020-11-23] MEDS: HYDROmorphone 1 MG/1 ML SYRINGE IV PRN (22:46)
[2020-11-23 23:19] LABS: Calcium 7.6 mg/dL (8.6-10.3)
[2020-11-24] MEDS: Chlorhexidine MOUTHWASH 0.12% 15 ML UDC TOPICAL SCH ×7 (00:17→23:50)
[2020-11-24] MEDS: metroNIDAZOLE IV 500 MG/100ML 500 MG/100 ML BAG IVPB SCH ×3 (00:17→17:38)
[2020-11-24] MEDS: HYDROmorphone 1 MG/1 ML SYRINGE IV PRN ×6 (02:00→22:05)
[2020-11-24] MEDS: Vancomycin 750 MG in NS 0.9% 250 ML IVPB SCH ×2 (03:16→16:20)
[2020-11-24] MEDS: Phenylephrine IV 50 MG in NS 0.9% 250 ml 245 ML IV SCH ×3 (03:43→20:32)
[2020-11-24 04:34] LABS: Hematocrit 36 % (35-47); Hemoglobin 11.5 g/dL (12.0-16.0); Mean Corpuscular HGB Conc 32 g/dL (31-36); Mean Corpuscular Hemoglobin 25 pg (27-31); Mean Corpuscular Volume 79 fL (80-97); Mean Platelet Volume 8.4 fL (7.4-10.4); Platelet Count 213 10^3/uL (150-450); Red Blood Count 4.59 10^6 /uL (3.70-4.87); Red Cell Distribution Width 17 % (10-15); White Blood Count 25.6 10^3/uL (3.5-10.8)
[2020-11-24 04:51] LABS: Calcium 7.4 mg/dL (8.6-10.3); Potassium 4.3 mmol/L (3.5-5.0)
[2020-11-24 05:00] LABS: ABS Eosinophils 0.3 10^3/ul (0-0.6); ABS Lymphocytes 3.4 10^3/ul (1.0-4.8); ABS Monocytes 0.8 10^3/ul (0-0.8); ABS Neutrophils 21.1 10^3/ul (1.5-7.7); Eosinophil % 1.1 %; Lymphocyte % 13.2 %
[2020-11-24] MEDS: Cefepime 2 GM in Dextrose 2 GM/50 ML BAG IV SCH ×2 (05:47→18:25)
[2020-11-24] MEDS: Heparin 5000 UNITS/ML 1 mL VIAL SUBCUT SCH ×3 (05:48→22:05)
[2020-11-24] MEDS: levETIRAcetam 500 MG IVPREMIX 500 MG/100 ML BAG IV SCH ×2 (07:56→17:45)
[2020-11-24 08:30] LABS: Magnesium 2.2 mg/dL (1.9-2.7); Phosphorus 2.5 mg/dL (2.5-5.0)
[2020-11-24] MEDS: Pantoprazole VIAL 40 MG VIAL IV SCH (08:49)
[2020-11-24] MEDS: Insulin GLARGINE 100 un/ml 10 ml VIAL SUBCUT SCH (09:01)
[2020-11-24] MEDS ORDERED: NORMOSOL-R pH 7.4 1000 mL BAG 1,000 ML IV SCH (09:54)
[2020-11-24 13:45] LABS: Calcium 7.5 mg/dL (8.6-10.3); Potassium 4.2 mmol/L (3.5-5.0)
[2020-11-24] MEDS ORDERED: Vancomycin Trough Check NOTE FOLLOW UP ONE (15:00)
[2020-11-24] MEDS ORDERED: Lidocaine 1% VIAL 10 MG/ML VIAL ONE (17:07)
[2020-11-24] MEDS ORDERED: Lidocaine 1% VIAL 10 MG/ML VIAL INJ ONE ×2 (17:24)
[2020-11-24] MEDS ORDERED: Metoprolol Tartrate 5 mg VIAL 5 ml VIAL (1 mg/ml) IV ONE ×2 (18:27→18:42)
[2020-11-24] MEDS ORDERED: Metoprolol Tartrate 5 mg VIAL 5 ml VIAL (1 mg/ml) ONE (18:30)
[2020-11-24] MEDS ORDERED: Metoprolol Tartrate 5 mg VIAL 5 ml VIAL (1 mg/ml) IV PRN (18:44)
[2020-11-24] MEDS ORDERED: Midazolam 50 MG VIAL IV DRIP 50 ML IV SCH (19:00)
[2020-11-25] MEDS: HYDROmorphone 1 MG/1 ML SYRINGE IV PRN ×7 (00:23→16:00)
[2020-11-25] MEDS: metroNIDAZOLE IV 500 MG/100ML 500 MG/100 ML BAG IVPB SCH ×2 (00:32→08:13)
[2020-11-25] MEDS: Metoprolol Tartrate 5 mg VIAL 5 ml VIAL (1 mg/ml) IV PRN (02:36)
[2020-11-25] MEDS: Vancomycin 750 MG in NS 0.9% 250 ML IVPB SCH (03:04)
[2020-11-25] MEDS: Chlorhexidine MOUTHWASH 0.12% 15 ML UDC TOPICAL SCH ×5 (04:14→19:24)
[2020-11-25 04:20] LABS: Hematocrit 33 % (35-47); Hemoglobin 10.5 g/dL (12.0-16.0); Mean Corpuscular HGB Conc 32 g/dL (31-36); Mean Corpuscular Hemoglobin 25 pg (27-31); Mean Corpuscular Volume 79 fL (80-97); Platelet Count 161 10^3/uL (150-450); Red Blood Count 4.14 10^6 /uL (3.70-4.87); Red Cell Distribution Width 17 % (10-15); White Blood Count 16.1 10^3/uL (3.5-10.8)
[2020-11-25 04:35] LABS: Calcium 7.7 mg/dL (8.6-10.3); Magnesium 2.1 mg/dL (1.9-2.7); Phosphorus 1.8 mg/dL (2.5-5.0)
[2020-11-25] MEDS: levETIRAcetam 500 MG IVPREMIX 500 MG/100 ML BAG IV SCH ×2 (05:49→18:04)
[2020-11-25] MEDS: Cefepime 2 GM in Dextrose 2 GM/50 ML BAG IV SCH (05:49)
[2020-11-25] MEDS: Heparin 5000 UNITS/ML 1 mL VIAL SUBCUT SCH ×3 (05:49→22:31)
[2020-11-25] MEDS: Insulin GLARGINE 100 un/ml 10 ml VIAL SUBCUT SCH (08:12)
[2020-11-25] MEDS: Pantoprazole VIAL 40 MG VIAL IV SCH (08:13)
[2020-11-25] MEDS ORDERED: Potassium Phosphate IV 15 MMOLE in NS 0.9% 250 ml 250 ML IVPB ONE (08:28)
[2020-11-25] MEDS ORDERED: Piperacillin/Tazobac ADVAN 3.375 GM in NS 0.9% 100 ml BAG 100 ML IV ONE (09:43)
[2020-11-25] MEDS ORDERED: Zosyn per Pharmacy NOTE FOLLOW UP SCH (10:00)
[2020-11-25] MEDS ORDERED: ZOSYN 3.375 GM Q8H per EXTENDED INFUSION IV SCH (13:30)
[2020-11-25] MEDS: ZOSYN 3.375 GM Q8H per EXTENDED INFUSION IV SCH (17:12)
[2020-11-25] MEDS ORDERED: HYDROmorphone 1 MG/1 ML SYRINGE IV SLOW PU ONE (17:16)
[2020-11-25] MEDS: Artificial Tear OPHTH.OINT 3.5 GM BOTH EYES PRN (20:56)
[2020-11-25] MEDS ORDERED: Midazolam 5 mg/5 ml VIAL 1 mg/ml 5 ml VIAL (5 mg) IV SLOW PU ONE (21:30)
[2020-11-25] MEDS ORDERED: Midazolam 5 mg/5 ml VIAL 1 mg/ml 5 ml VIAL (5 mg) ONE (21:32)
[2020-11-26] MEDS: Chlorhexidine MOUTHWASH 0.12% 15 ML UDC TOPICAL SCH ×7 (01:35→22:26)
[2020-11-26] MEDS: ZOSYN 3.375 GM Q8H per EXTENDED INFUSION IV SCH ×4 (01:35→22:26)
[2020-11-26] MEDS: Artificial Tear OPHTH.OINT 3.5 GM BOTH EYES PRN ×2 (01:39→04:45)
[2020-11-26 04:42] LABS: Hematocrit 31 % (35-47); Hemoglobin 9.9 g/dL (12.0-16.0); Mean Corpuscular HGB Conc 32 g/dL (31-36); Mean Corpuscular Hemoglobin 26 pg (27-31); Mean Corpuscular Volume 80 fL (80-97); Mean Platelet Volume 8.7 fL (7.4-10.4); Platelet Count 142 10^3/uL (150-450); Red Blood Count 3.89 10^6 /uL (3.70-4.87); Red Cell Distribution Width 17 % (10-15); White Blood Count 13.8 10^3/uL (3.5-10.8)
[2020-11-26 04:58] LABS: Calcium 7.6 mg/dL (8.6-10.3); Phosphorus 1.8 mg/dL (2.5-5.0); Potassium 3.6 mmol/L (3.5-5.0)
[2020-11-26] MEDS: Heparin 5000 UNITS/ML 1 mL VIAL SUBCUT SCH ×3 (06:21→20:52)
[2020-11-26] MEDS: levETIRAcetam 500 MG IVPREMIX 500 MG/100 ML BAG IV SCH ×2 (06:22→17:42)
[2020-11-26] MEDS: HYDROmorphone 1 MG/1 ML SYRINGE IV PRN ×5 (06:52→21:39)
[2020-11-26] MEDS ORDERED: Magnesium Sulfate 2 gm BAG 2 GM/50 ML BAG IVPB ONE (07:05)
[2020-11-26] MEDS ORDERED: Potassium Chloride LIQUID 20 MEQ/15 ML LIQUID PO ONE (07:40)
[2020-11-26] MEDS: Pantoprazole VIAL 40 MG VIAL IV SCH (08:13)
[2020-11-26] MEDS: Insulin GLARGINE 100 un/ml 10 ml VIAL SUBCUT SCH (08:13)
[2020-11-26 08:30] LABS: HDL Cholesterol 10.5 mg/dL
[2020-11-26] MEDS ORDERED: Potassium Phosphate IV 30 MMOLE in NS 0.9% 250 ml 250 ML IVPB ONE (09:00)
[2020-11-26] MEDS ORDERED: Aspirin EC 81 mg TAB.EC (enteric coated) PO SCH (10:00)
[2020-11-26] MEDS ORDERED: Furosemide 40 mg/4 ml IV VIAL IV SLOW PU ONE (10:38)
[2020-11-26] MEDS: Dexmedetomidine 1,000 MCG in NS 0.9% 250 ml 240 ML IV SCH (15:44)
[2020-11-26] MEDS ORDERED: Lidocaine 2% PF 5 ML VIAL ONE (16:44)
[2020-11-26] MEDS ORDERED: fentaNYL 100 mcg/2 ml 50 MCG/ML VIAL ONE (16:44)
[2020-11-26] MEDS: Phenylephrine IV 50 MG in NS 0.9% 250 ml 245 ML IV SCH (21:21)
[2020-11-27] MEDS: HYDROmorphone 1 MG/1 ML SYRINGE IV PRN ×8 (01:54→22:06)
[2020-11-27] MEDS: Chlorhexidine MOUTHWASH 0.12% 15 ML UDC TOPICAL SCH ×6 (02:27→22:40)
[2020-11-27] MEDS: levETIRAcetam 500 MG IVPREMIX 500 MG/100 ML BAG IV SCH ×2 (04:10→17:18)
[2020-11-27] MEDS: Heparin 5000 UNITS/ML 1 mL VIAL SUBCUT SCH (04:10)
[2020-11-27 04:20] LABS: Hematocrit 33 % (35-47); Hemoglobin 10.5 g/dL (12.0-16.0); Mean Corpuscular HGB Conc 32 g/dL (31-36); Mean Corpuscular Hemoglobin 25 pg (27-31); Mean Corpuscular Volume 79 fL (80-97); Mean Platelet Volume 8.6 fL (7.4-10.4); Platelet Count 162 10^3/uL (150-450); Red Blood Count 4.15 10^6 /uL (3.70-4.87); Red Cell Distribution Width 17 % (10-15); White Blood Count 11.9 10^3/uL (3.5-10.8)
[2020-11-27 04:38] LABS: Calcium 7.7 mg/dL (8.6-10.3); Magnesium 2.1 mg/dL (1.9-2.7); Phosphorus 2.2 mg/dL (2.5-5.0); Potassium 3.6 mmol/L (3.5-5.0)
[2020-11-27] MEDS: Pantoprazole VIAL 40 MG VIAL IV SCH (07:55)
[2020-11-27] MEDS: Insulin GLARGINE 100 un/ml 10 ml VIAL SUBCUT SCH (07:55)
[2020-11-27] MEDS: ZOSYN 3.375 GM Q8H per EXTENDED INFUSION IV SCH ×3 (07:55→22:40)
[2020-11-27] MEDS ORDERED: Potassium Phosphate IV 30 MMOLE in NS 0.9% 250 ml 250 ML IVPB ONE (08:00)
[2020-11-27] MEDS ORDERED: Furosemide 40 mg/4 ml IV VIAL IV ONE ×2 (08:24→18:00)
[2020-11-27] MEDS ORDERED: Vancomycin Trough Check NOTE FOLLOW UP ONE (15:00)
[2020-11-27] MEDS: Dexmedetomidine 1,000 MCG in NS 0.9% 250 ml 240 ML IV SCH (15:17)
[2020-11-27] MEDS ORDERED: Propofol 10 mg/ml 100 ML BTL 100 ML ONE (22:14)
[2020-11-27] MEDS: Propofol 10 mg/ml 100 ML BTL 100 ML IV SCH (22:30)
[2020-11-28] MEDS: Chlorhexidine MOUTHWASH 0.12% 15 ML UDC TOPICAL SCH ×6 (02:21→22:33)
[2020-11-28] MEDS: Propofol 10 mg/ml 100 ML BTL 100 ML IV SCH ×4 (02:46→22:41)
[2020-11-28] MEDS: HYDROmorphone 1 MG/1 ML SYRINGE IV PRN ×7 (03:39→22:53)
[2020-11-28 04:23] LABS: Hematocrit 30 % (35-47); Hemoglobin 9.9 g/dL (12.0-16.0); Mean Corpuscular HGB Conc 33 g/dL (31-36); Mean Corpuscular Hemoglobin 26 pg (27-31); Mean Corpuscular Volume 78 fL (80-97); Mean Platelet Volume 9.5 fL (7.4-10.4); Platelet Count 169 10^3/uL (150-450); Red Blood Count 3.88 10^6 /uL (3.70-4.87); Red Cell Distribution Width 17 % (10-15); White Blood Count 10.6 10^3/uL (3.5-10.8)
[2020-11-28] MEDS: levETIRAcetam 500 MG IVPREMIX 500 MG/100 ML BAG IV SCH ×2 (04:36→17:43)
[2020-11-28 04:37] LABS: Albumin 2.4 g/dL (3.2-5.2); Albumin/Globulin Ratio 0.8 (1-3); Calcium 7.7 mg/dL (8.6-10.3); Globulin 2.9 g/dL (2-4); Magnesium 1.8 mg/dL (1.9-2.7); Phosphorus 3.2 mg/dL (2.5-5.0); Potassium 3.7 mmol/L (3.5-5.0); Total Bilirubin 0.4 mg/dL (0.2-1.0); Total Protein 5.3 g/dL (6.4-8.9)
[2020-11-28] MEDS: Dexmedetomidine 1,000 MCG in NS 0.9% 250 ml 240 ML IV SCH (06:20)
[2020-11-28] MEDS ORDERED: Magnesium Sulfate 2 gm BAG 2 GM/50 ML BAG IVPB ONE (07:22)
[2020-11-28] MEDS: Pantoprazole VIAL 40 MG VIAL IV SCH (07:33)
[2020-11-28] MEDS: Insulin GLARGINE 100 un/ml 10 ml VIAL SUBCUT SCH (07:34)
[2020-11-28] MEDS: ZOSYN 3.375 GM Q8H per EXTENDED INFUSION IV SCH ×3 (07:58→22:33)
[2020-11-28] MEDS ORDERED: Furosemide 40 mg/4 ml IV VIAL IV SLOW PU ONE ×2 (08:00→15:46)
[2020-11-28] MEDS ORDERED: Insulin GLARGINE 100 un/ml 10 ml VIAL SUBCUT SCH (09:00)
[2020-11-28 11:14] LABS: PCO2 Arterial 32 mmHg (35-45); PO2 Arterial 65 mmHg (80-100)
[2020-11-28] MEDS: Metoprolol Tartrate 5 mg VIAL 5 ml VIAL (1 mg/ml) IV PRN (23:06)
[2020-11-28] MEDS ORDERED: Diltiazem IV push/loading dose 5 MG/ML 5 ML vial (25 mg) IV SLOW PU ONE (23:48)
[2020-11-29] MEDS ORDERED: Diltiazem IV push/loading dose 5 MG/ML 5 ML vial (25 mg) IV SLOW PU ONE (00:33)
[2020-11-29] MEDS ORDERED: Diltiazem (ADVAN VIAL) 100 MG/100 ML ADDV.BAG IV SCH (01:00)
[2020-11-29] MEDS: Propofol 10 mg/ml 100 ML BTL 100 ML IV SCH ×6 (02:00→21:54)
[2020-11-29] MEDS: Chlorhexidine MOUTHWASH 0.12% 15 ML UDC TOPICAL SCH ×5 (04:24→19:30)
[2020-11-29] MEDS: levETIRAcetam 500 MG IVPREMIX 500 MG/100 ML BAG IV SCH ×2 (04:24→18:16)
[2020-11-29 04:39] LABS: Hematocrit 30 % (35-47); Hemoglobin 9.6 g/dL (12.0-16.0); Mean Corpuscular HGB Conc 32 g/dL (31-36); Mean Corpuscular Hemoglobin 26 pg (27-31); Mean Corpuscular Volume 79 fL (80-97); Mean Platelet Volume 9.8 fL (7.4-10.4); Platelet Count 238 10^3/uL (150-450); Red Blood Count 3.75 10^6 /uL (3.70-4.87); Red Cell Distribution Width 17 % (10-15); White Blood Count 16.7 10^3/uL (3.5-10.8)
[2020-11-29 04:51] LABS: Potassium 3.5 mmol/L (3.5-5.0)
[2020-11-29 05:07] LABS: Basophilic Stippling 1+
[2020-11-29 05:08] LABS: Anisocytosis 1+
[2020-11-29 05:10] LABS: Toxic Granulation 2+
[2020-11-29 05:11] LABS: Polychromasia 1+
[2020-11-29 05:14] LABS: ABS Eosinophils 0.1 10^3/ul (0-0.6); ABS Lymphocytes 1.7 10^3/ul (1.0-4.8); ABS Monocytes 1.4 10^3/ul (0-0.8); ABS Neutrophils 13.5 10^3/ul (1.5-7.7); Eosinophil % 0.7 %; Nucleated Red Blood Cells % 0.2
[2020-11-29 05:22] LABS: RBC Morphology Normal (Normal)
[2020-11-29 07:33] LABS: Phosphorus 4.6 mg/dL (2.5-5.0)
[2020-11-29] MEDS: Pantoprazole VIAL 40 MG VIAL IV SCH (07:33)
[2020-11-29] MEDS: ZOSYN 3.375 GM Q8H per EXTENDED INFUSION IV SCH ×2 (07:33→16:16)
[2020-11-29] MEDS ORDERED: KCL 20 MEQ/100 ML IVPREMIX 20 MEQ/100 ML BAG IV ONE (07:42)
[2020-11-29] MEDS: Artificial Tear OPHTH.OINT 3.5 GM BOTH EYES PRN (08:00)
[2020-11-29] MEDS ORDERED: Furosemide 40 mg/4 ml IV VIAL IV SLOW PU ONE ×2 (08:47→15:35)
[2020-11-29] MEDS ORDERED: Insulin GLARGINE 100 un/ml 10 ml VIAL SUBCUT SCH (09:00)
[2020-11-29] MEDS ORDERED: Furosemide 20 mg/2 ml IV VIAL IV SLOW PU ONE (10:32)
[2020-11-29 14:14] LABS: Calcium 8.1 mg/dL (8.6-10.3); Potassium 3.1 mmol/L (3.5-5.0)
[2020-11-29] MEDS: KCL 20 MEQ/100 ML IVPREMIX 20 MEQ/100 ML BAG IV SCH ×2 (14:51→17:50)
[2020-11-29] MEDS: HYDROmorphone 1 MG/1 ML SYRINGE IV PRN (17:07)
[2020-11-29] MEDS ORDERED: Insulin GLARGINE 100 un/ml 10 ml VIAL SUBCUT ONE (20:00)
[2020-11-30] MEDS: Chlorhexidine MOUTHWASH 0.12% 15 ML UDC TOPICAL SCH ×6 (00:16→19:35)
[2020-11-30] MEDS: ZOSYN 3.375 GM Q8H per EXTENDED INFUSION IV SCH ×3 (00:16→16:54)
[2020-11-30] MEDS: HYDROmorphone 1 MG/1 ML SYRINGE IV PRN ×6 (00:56→18:35)
[2020-11-30] MEDS: Artificial Tear OPHTH.OINT 3.5 GM BOTH EYES PRN ×2 (04:27→09:46)
[2020-11-30 04:33] LABS: Hematocrit 26 % (35-47); Hemoglobin 8.7 g/dL (12.0-16.0); Mean Corpuscular HGB Conc 33 g/dL (31-36); Mean Corpuscular Hemoglobin 26 pg (27-31); Mean Corpuscular Volume 79 fL (80-97); Mean Platelet Volume 9.5 fL (7.4-10.4); Platelet Count 248 10^3/uL (150-450); Red Blood Count 3.29 10^6 /uL (3.70-4.87); Red Cell Distribution Width 18 % (10-15)
[2020-11-30 04:39] LABS: INR 1.39 (0.86-1.15)
[2020-11-30 04:48] LABS: Albumin 2.4 g/dL (3.2-5.2); Albumin/Globulin Ratio 0.8 (1-3); Calcium 7.7 mg/dL (8.6-10.3); Globulin 3.2 g/dL (2-4); Phosphorus 2.9 mg/dL (2.5-5.0); Potassium 3.1 mmol/L (3.5-5.0); Total Bilirubin 0.3 mg/dL (0.2-1.0); Total Protein 5.6 g/dL (6.4-8.9)
[2020-11-30 04:59] LABS: ABS Basophils 0.2 10^3/ul (0-0.2); ABS Eosinophils 0.2 10^3/ul (0-0.6); ABS Lymphocytes 2.1 10^3/ul (1.0-4.8); ABS Monocytes 1.2 10^3/ul (0-0.8); ABS Neutrophils 12.4 10^3/ul (1.5-7.7); Eosinophil % 1.5 %; Lymphocyte % 13.1 %; Nucleated Red Blood Cells % 0.3
[2020-11-30] MEDS: levETIRAcetam 500 MG IVPREMIX 500 MG/100 ML BAG IV SCH ×2 (06:01→17:07)
[2020-11-30] MEDS: Propofol 10 mg/ml 100 ML BTL 100 ML IV SCH (06:46)
[2020-11-30] MEDS: KCL 20 MEQ/100 ML IVPREMIX 20 MEQ/100 ML BAG IV SCH ×6 (07:33→19:33)
[2020-11-30] MEDS ORDERED: KCL 20 MEQ/100 ML IVPREMIX 20 MEQ/100 ML BAG IV SCH ×2 (08:00→15:00)
[2020-11-30] MEDS: Insulin GLARGINE 100 un/ml 10 ml VIAL SUBCUT SCH ×2 (08:32→22:27)
[2020-11-30] MEDS: Pantoprazole VIAL 40 MG VIAL IV SCH (08:35)
[2020-11-30] MEDS ORDERED: Insulin GLARGINE 100 un/ml 10 ml VIAL SUBCUT SCH (09:00)
[2020-11-30] MEDS: Dexmedetomidine 1,000 MCG in NS 0.9% 250 ml 240 ML IV SCH ×2 (09:28→20:56)
[2020-11-30 12:55] LABS: Anion Gap 6 mmol/L (2-11); Blood Urea Nitrogen 19 mg/dL (6-24); CO2 Carbon Dioxide 24 mmol/L (22-32); Calcium 7.1 mg/dL (8.6-10.3); Chloride 104 mmol/L (101-111); Glucose 169 mg/dL (70-100); Sodium 134 mmol/L (135-145)
[2020-11-30] MEDS ORDERED: Lorazepam PYXIS KEY PRN ×2 (14:37→15:52)
[2020-11-30] MEDS ORDERED: LORazepam 2 mg VIAL 1 ml IV PUSH ONE (14:37)
[2020-11-30] MEDS ORDERED: LORazepam 2 mg VIAL 1 ml ONE (14:40)
[2020-11-30] MEDS: LORazepam 2 mg VIAL 1 ml IV PUSH ONE (14:44)
[2020-11-30] MEDS ORDERED: LORazepam 2 mg VIAL 1 ml IV PUSH PRN ×2 (15:52→18:51)
[2020-11-30] MEDS: Dextrose 50% Syringe 50 ml 25 GM/50 ML SYRINGE IV PUSH PRN ×2 (17:30→18:05)
[2020-11-30] MEDS ORDERED: HYDROmorphone 1 MG/1 ML SYRINGE IV ONE (18:30)
[2020-11-30] MEDS ORDERED: HYDROmorphone 1 MG/1 ML SYRINGE ONE (18:32)
[2020-11-30 20:40] LABS: Calcium 7.9 mg/dL (8.6-10.3); Potassium 3.7 mmol/L (3.5-5.0)
[2020-11-30] MEDS ORDERED: Furosemide 40 mg/4 ml IV VIAL IV SLOW PU ONE (23:45)
[2020-11-30] MEDS ORDERED: Potassium Chloride LIQUID 20 MEQ/15 ML LIQUID PO ONE (23:45)
[2020-12-01] MEDS: ZOSYN 3.375 GM Q8H per EXTENDED INFUSION IV SCH ×3 (00:18→16:13)
[2020-12-01] MEDS: Chlorhexidine MOUTHWASH 0.12% 15 ML UDC TOPICAL SCH ×7 (00:19→22:22)
[2020-12-01] MEDS: Saline FLUSH-CENTRAL 10 ML SYRINGE CENT\\PICC SCH ×2 (00:31→11:34)
[2020-12-01 04:05] LABS: Hematocrit 26 % (35-47); Hemoglobin 8.6 g/dL (12.0-16.0); Mean Corpuscular HGB Conc 33 g/dL (31-36); Mean Corpuscular Hemoglobin 26 pg (27-31); Mean Corpuscular Volume 79 fL (80-97); Mean Platelet Volume 9.1 fL (7.4-10.4); Platelet Count 269 10^3/uL (150-450); Red Blood Count 3.35 10^6 /uL (3.70-4.87); Red Cell Distribution Width 17 % (10-15); White Blood Count 15.4 10^3/uL (3.5-10.8)
[2020-12-01 04:24] LABS: Calcium 8.3 mg/dL (8.6-10.3)
[2020-12-01 04:48] LABS: ABS Eosinophils 0.2 10^3/ul (0-0.6); ABS Monocytes 0.7 10^3/ul (0-0.8); ABS Neutrophils 12.5 10^3/ul (1.5-7.7); ABS Nucleated RBC 0.1 10^3/ul; Eosinophil % 1.5 %; Lymphocyte % 12.7 %; Nucleated Red Blood Cells % 0.3
[2020-12-01] MEDS: levETIRAcetam 500 MG IVPREMIX 500 MG/100 ML BAG IV SCH (04:54)
[2020-12-01] MEDS: HYDROmorphone 1 MG/1 ML SYRINGE IV PRN ×7 (05:52→22:42)
[2020-12-01] MEDS: Dexmedetomidine 1,000 MCG in NS 0.9% 250 ml 240 ML IV SCH ×2 (08:47→20:27)
[2020-12-01] MEDS: Pantoprazole VIAL 40 MG VIAL IV SCH (09:39)
[2020-12-01] MEDS: Insulin GLARGINE 100 un/ml 10 ml VIAL SUBCUT SCH ×2 (10:04→10:15)
[2020-12-01] MEDS: Miconazole TOPICAL CREAM 2% 30 GM TOPICAL SCH ×2 (12:57→19:54)
[2020-12-01] MEDS ORDERED: Furosemide 40 mg/4 ml IV VIAL IV SLOW PU ONE (13:10)
[2020-12-01] MEDS: levETIRAcetam IV 250 MG in NS 0.9% 100 ml BAG 100 ML IVPB SCH (17:08)
[2020-12-01] MEDS: LORazepam 2 mg VIAL 1 ml IV PUSH PRN (18:47)
[2020-12-02] MEDS: ZOSYN 3.375 GM Q8H per EXTENDED INFUSION IV SCH ×3 (00:43→16:20)
[2020-12-02] MEDS: Saline FLUSH-CENTRAL 10 ML SYRINGE CENT\\PICC SCH ×3 (00:43→23:42)
[2020-12-02] MEDS: HYDROmorphone 1 MG/1 ML SYRINGE IV PRN ×5 (00:49→12:43)
[2020-12-02 04:22] LABS: Hematocrit 25 % (35-47); Mean Corpuscular HGB Conc 33 g/dL (31-36); Mean Corpuscular Hemoglobin 26 pg (27-31); Mean Corpuscular Volume 79 fL (80-97); Mean Platelet Volume 8.4 fL (7.4-10.4); Platelet Count 279 10^3/uL (150-450); Red Blood Count 3.11 10^6 /uL (3.70-4.87); Red Cell Distribution Width 17 % (10-15)
[2020-12-02 04:29] LABS: ABS Eosinophils 0.2 10^3/ul (0-0.6); ABS Lymphocytes 2.4 10^3/ul (1.0-4.8); ABS Monocytes 0.8 10^3/ul (0-0.8); ABS Neutrophils 13.5 10^3/ul (1.5-7.7); Eosinophil % 1.5 %; Lymphocyte % 13.9 %; Nucleated Red Blood Cells % 0.1
[2020-12-02] MEDS: Chlorhexidine MOUTHWASH 0.12% 15 ML UDC TOPICAL SCH ×5 (04:40→21:29)
[2020-12-02 04:42] LABS: Magnesium 1.9 mg/dL (1.9-2.7); Phosphorus 2.9 mg/dL (2.5-5.0); Potassium 3.1 mmol/L (3.5-5.0)
[2020-12-02] MEDS: levETIRAcetam IV 250 MG in NS 0.9% 100 ml BAG 100 ML IVPB SCH ×2 (05:25→17:44)
[2020-12-02] MEDS: Dexmedetomidine 1,000 MCG in NS 0.9% 250 ml 240 ML IV SCH ×2 (07:04→15:33)
[2020-12-02] MEDS ORDERED: Magnesium Sulfate 2 gm BAG 2 GM/50 ML BAG IVPB ONE (07:18)
[2020-12-02] MEDS ORDERED: NS 0.9% 100 ml BAG 100 ML ONE (07:49)
[2020-12-02] MEDS: Insulin GLARGINE 100 un/ml 10 ml VIAL SUBCUT SCH (07:54)
[2020-12-02] MEDS: Pantoprazole VIAL 40 MG VIAL IV SCH (08:15)
[2020-12-02] MEDS: Miconazole TOPICAL CREAM 2% 30 GM TOPICAL SCH ×2 (08:17→21:35)
[2020-12-02] MEDS: KCL 20 MEQ/100 ML IVPREMIX 20 MEQ/100 ML BAG IV SCH ×3 (08:37→14:08)
[2020-12-02 11:54] LABS: Potassium 3.8 mmol/L (3.5-5.0)
[2020-12-02] MEDS ORDERED: Furosemide 40 mg/4 ml IV VIAL IV SLOW PU ONE (12:35)
[2020-12-02] MEDS: LORazepam 2 mg VIAL 1 ml IV PUSH PRN ×2 (13:09→13:33)
[2020-12-02] MEDS ORDERED: Midazolam 2 mg/2 ml VIAL 1 mg/ml 2 ml VIAL (2 mg) IV SLOW PU ONE (13:25)
[2020-12-02] MEDS ORDERED: LORazepam 2 mg VIAL 1 ml ONE (13:27)
[2020-12-02] MEDS ORDERED: LORazepam 2 mg VIAL 1 ml IV PUSH ONE (13:33)
[2020-12-03] MEDS: Chlorhexidine MOUTHWASH 0.12% 15 ML UDC TOPICAL SCH ×3 (00:39→11:13)
[2020-12-03] MEDS: ZOSYN 3.375 GM Q8H per EXTENDED INFUSION IV SCH ×4 (00:40→22:27)
[2020-12-03] MEDS: HYDROmorphone 1 MG/1 ML SYRINGE IV PRN ×5 (01:22→23:51)
[2020-12-03] MEDS: LORazepam 2 mg VIAL 1 ml IV PUSH PRN ×3 (03:37→21:50)
[2020-12-03] MEDS: levETIRAcetam IV 250 MG in NS 0.9% 100 ml BAG 100 ML IVPB SCH (06:11)
[2020-12-03 06:30] LABS: Hematocrit 25 % (35-47); Hemoglobin 8.2 g/dL (12.0-16.0); Mean Corpuscular HGB Conc 32 g/dL (31-36); Mean Corpuscular Hemoglobin 26 pg (27-31); Mean Corpuscular Volume 79 fL (80-97); Mean Platelet Volume 8.6 fL (7.4-10.4); Platelet Count 310 10^3/uL (150-450); Red Blood Count 3.19 10^6 /uL (3.70-4.87); Red Cell Distribution Width 17 % (10-15); White Blood Count 13.4 10^3/uL (3.5-10.8)
[2020-12-03 06:47] LABS: Calcium 8.4 mg/dL (8.6-10.3); Magnesium 2.2 mg/dL (1.9-2.7); Phosphorus 2.8 mg/dL (2.5-5.0); Potassium 3.3 mmol/L (3.5-5.0)
[2020-12-03 08:07] LABS: HDL Cholesterol 22.4 mg/dL
[2020-12-03 08:31] LABS: ABS Eosinophils 0.1 10^3/ul (0-0.6); ABS Lymphocytes 1.6 10^3/ul (1.0-4.8); ABS Monocytes 0.6 10^3/ul (0-0.8); Eosinophil % 0.9 %; Lymphocyte % 11.7 %
[2020-12-03] MEDS ORDERED: Insulin GLARGINE 100 un/ml 10 ml VIAL SUBCUT SCH (09:00)
[2020-12-03] MEDS: KCL 20 MEQ/100 ML IVPREMIX 20 MEQ/100 ML BAG IV SCH ×6 (09:50→19:48)
[2020-12-03] MEDS: Pantoprazole VIAL 40 MG VIAL IV SCH (09:50)
[2020-12-03] MEDS: Miconazole TOPICAL CREAM 2% 30 GM TOPICAL SCH ×2 (12:25→19:48)
[2020-12-03] MEDS: Saline FLUSH-CENTRAL 10 ML SYRINGE CENT\\PICC SCH ×2 (12:25→21:45)
[2020-12-03 12:47] LABS: Calcium 8.4 mg/dL (8.6-10.3); Potassium 3.1 mmol/L (3.5-5.0)
[2020-12-03] MEDS ORDERED: Furosemide 40 mg/4 ml IV VIAL IV SLOW PU ONE (13:20)
[2020-12-03 15:21] LABS: Troponin I 0.04 ng/mL (<0.03)
[2020-12-03] MEDS ORDERED: Metoprolol Tartrate 5 mg VIAL 5 ml VIAL (1 mg/ml) IV PRN (17:25)
[2020-12-03 18:50] LABS: Glucose Confirmatory 582 mg/dL (70-100); Troponin I 0.05 ng/mL (<0.03)
[2020-12-03 22:20] LABS: Calcium 8.4 mg/dL (8.6-10.3); Potassium 3.9 mmol/L (3.5-5.0)
[2020-12-04] MEDS: LORazepam 2 mg VIAL 1 ml IV PUSH PRN ×2 (02:07→11:04)
[2020-12-04 04:14] LABS: Hematocrit 26 % (35-47); Hemoglobin 8.5 g/dL (12.0-16.0); Mean Corpuscular HGB Conc 32 g/dL (31-36); Mean Corpuscular Hemoglobin 26 pg (27-31); Mean Corpuscular Volume 79 fL (80-97); Mean Platelet Volume 8.2 fL (7.4-10.4); Platelet Count 357 10^3/uL (150-450); Red Blood Count 3.32 10^6 /uL (3.70-4.87); Red Cell Distribution Width 17 % (10-15); White Blood Count 15.2 10^3/uL (3.5-10.8)
[2020-12-04] MEDS: HYDROmorphone 1 MG/1 ML SYRINGE IV PRN ×3 (04:27→13:26)
[2020-12-04 04:30] LABS: Calcium 8.6 mg/dL (8.6-10.3); Phosphorus 2.4 mg/dL (2.5-5.0); Potassium 3.4 mmol/L (3.5-5.0)
[2020-12-04 04:53] LABS: ABS Eosinophils 0.1 10^3/ul (0-0.6); ABS Lymphocytes 1.5 10^3/ul (1.0-4.8); ABS Monocytes 0.8 10^3/ul (0-0.8); ABS Neutrophils 12.8 10^3/ul (1.5-7.7); Eosinophil % 0.8 %; Lymphocyte % 9.9 %
[2020-12-04] MEDS: levETIRAcetam IV 250 MG in NS 0.9% 100 ml BAG 100 ML IVPB SCH (06:31)
[2020-12-04] MEDS: ZOSYN 3.375 GM Q8H per EXTENDED INFUSION IV SCH ×3 (08:47→22:39)
[2020-12-04] MEDS: Pantoprazole VIAL 40 MG VIAL IV SCH (08:47)
[2020-12-04] MEDS ORDERED: Insulin GLARGINE 100 un/ml 10 ml VIAL SUBCUT SCH (09:00)
[2020-12-04] MEDS: Saline FLUSH-CENTRAL 10 ML SYRINGE CENT\\PICC SCH ×2 (10:33→21:46)
[2020-12-04] MEDS: KCL 20 MEQ/100 ML IVPREMIX 20 MEQ/100 ML BAG IV SCH ×2 (11:03→13:24)
[2020-12-04] MEDS: Miconazole TOPICAL CREAM 2% 30 GM TOPICAL SCH ×2 (11:05→19:33)
[2020-12-04 14:31] LABS: Calcium 8.6 mg/dL (8.6-10.3); Potassium 4.1 mmol/L (3.5-5.0)
[2020-12-04] MEDS ORDERED: Furosemide 40 mg/4 ml IV VIAL IV SLOW PU ONE (14:58)
[2020-12-04] MEDS: Dextrose 50% Syringe 50 ml 25 GM/50 ML SYRINGE IV PUSH PRN ×2 (19:27→22:53)
[2020-12-04] MEDS ORDERED: D5W 500 ml BAG 500 ML IV SCH (23:00)
[2020-12-04] MEDS ORDERED: Prothrombin Complex Conc. DOSE = Units Factor IX (nine) IV SLOW PU ONE (23:01)
[2020-12-05] MEDS: levETIRAcetam IV 250 MG in NS 0.9% 100 ml BAG 100 ML IVPB SCH (04:19)
[2020-12-05 04:24] LABS: ABS Eosinophils 0.3 10^3/ul (0-0.6); ABS Lymphocytes 1.4 10^3/ul (1.0-4.8); ABS Monocytes 0.8 10^3/ul (0-0.8); ABS Neutrophils 9.8 10^3/ul (1.5-7.7); ABS Nucleated RBC 0.1 10^3/ul; Eosinophil % 2.7 %; Hematocrit 27 % (35-47); Hemoglobin 8.6 g/dL (12.0-16.0); Lymphocyte % 11.5 %; Mean Corpuscular HGB Conc 32 g/dL (31-36); Mean Corpuscular Hemoglobin 25 pg (27-31); Mean Corpuscular Volume 79 fL (80-97); Nucleated Red Blood Cells % 0.4; Platelet Count 372 10^3/uL (150-450); Red Cell Distribution Width 17 % (10-15); White Blood Count 12.3 10^3/uL (3.5-10.8)
[2020-12-05 04:43] LABS: Calcium 8.6 mg/dL (8.6-10.3); Magnesium 1.8 mg/dL (1.9-2.7); Phosphorus 2.6 mg/dL (2.5-5.0); Potassium 3.5 mmol/L (3.5-5.0)
[2020-12-05] MEDS: HYDROmorphone 1 MG/1 ML SYRINGE IV PRN ×3 (06:03→21:30)
[2020-12-05] MEDS ORDERED: Magnesium Sulfate 2 gm BAG 2 GM/50 ML BAG IVPB ONE (07:47)
[2020-12-05] MEDS: Pantoprazole VIAL 40 MG VIAL IV SCH (08:17)
[2020-12-05] MEDS: ZOSYN 3.375 GM Q8H per EXTENDED INFUSION IV SCH ×2 (08:17→15:23)
[2020-12-05] MEDS: Miconazole TOPICAL CREAM 2% 30 GM TOPICAL SCH ×2 (08:27→20:05)
[2020-12-05] MEDS ORDERED: Labetalol IV 5 MG/ML 20 ml VIAL IV PUSH PRN (11:31)
[2020-12-05] MEDS ORDERED: Furosemide 40 mg/4 ml IV VIAL IV SLOW PU ONE (11:35)
[2020-12-05] MEDS: Insulin GLARGINE 100 un/ml 10 ml VIAL SUBCUT SCH (12:02)
[2020-12-05] MEDS: Saline FLUSH-CENTRAL 10 ML SYRINGE CENT\\PICC SCH (12:04)
[2020-12-05] MEDS ORDERED: Dextrose 50% Syringe 50 ml 25 GM/50 ML SYRINGE IV PUSH PRN (23:47)
[2020-12-06] MEDS: ZOSYN 3.375 GM Q8H per EXTENDED INFUSION IV SCH ×3 (00:03→15:40)
[2020-12-06] MEDS: Saline FLUSH-CENTRAL 10 ML SYRINGE CENT\\PICC SCH ×2 (00:04→12:18)
[2020-12-06] MEDS ORDERED: NS 0.9% 100 ml BAG 100 ML ONE (05:09)
[2020-12-06] MEDS: levETIRAcetam IV 250 MG in NS 0.9% 100 ml BAG 100 ML IVPB SCH (05:34)
[2020-12-06 05:46] LABS: Calcium 8.3 mg/dL (8.6-10.3); Phosphorus 2.9 mg/dL (2.5-5.0); Potassium 3.4 mmol/L (3.5-5.0)
[2020-12-06] MEDS: HYDROmorphone 1 MG/1 ML SYRINGE IV PRN ×3 (07:22→20:37)
[2020-12-06] MEDS: Insulin GLARGINE 100 un/ml 10 ml VIAL SUBCUT SCH (08:51)
[2020-12-06] MEDS: Pantoprazole VIAL 40 MG VIAL IV SCH (08:57)
[2020-12-06 09:09] LABS: Hematocrit 27 % (35-47); Hemoglobin 8.4 g/dL (12.0-16.0); Mean Corpuscular HGB Conc 32 g/dL (31-36); Mean Corpuscular Hemoglobin 25 pg (27-31); Mean Corpuscular Volume 79 fL (80-97); Mean Platelet Volume 7.4 fL (7.4-10.4); Platelet Count 368 10^3/uL (150-450); Red Blood Count 3.36 10^6 /uL (3.70-4.87); Red Cell Distribution Width 17 % (10-15)
[2020-12-06 09:41] LABS: ABS Basophils 0.1 10^3/ul (0-0.2); ABS Eosinophils 0.2 10^3/ul (0-0.6); ABS Lymphocytes 2.3 10^3/ul (1.0-4.8); ABS Monocytes 1.1 10^3/ul (0-0.8); ABS Neutrophils 9.3 10^3/ul (1.5-7.7); Eosinophil % 1.9 %; Lymphocyte % 17.6 %; Nucleated Red Blood Cells % 0.1
[2020-12-06] MEDS: Miconazole TOPICAL CREAM 2% 30 GM TOPICAL SCH ×2 (10:29→22:00)
[2020-12-06] MEDS: KCL 20 MEQ/100 ML IVPREMIX 20 MEQ/100 ML BAG IV SCH (20:45)
[2020-12-07] MEDS: KCL 20 MEQ/100 ML IVPREMIX 20 MEQ/100 ML BAG IV SCH ×2 (00:06→04:29)
[2020-12-07] MEDS: ZOSYN 3.375 GM Q8H per EXTENDED INFUSION IV SCH ×3 (01:15→16:48)
[2020-12-07] MEDS: Saline FLUSH-CENTRAL 10 ML SYRINGE CENT\\PICC SCH ×3 (01:39→23:51)
[2020-12-07] MEDS: HYDROmorphone 1 MG/1 ML SYRINGE IV PRN ×4 (03:50→22:12)
[2020-12-07] MEDS: Pantoprazole VIAL 40 MG VIAL IV SCH (09:20)
[2020-12-07] MEDS: Insulin GLARGINE 100 un/ml 10 ml VIAL SUBCUT SCH (09:22)
[2020-12-07] MEDS: Miconazole TOPICAL CREAM 2% 30 GM TOPICAL SCH ×2 (09:32→19:56)
[2020-12-07 11:32] LABS: Calcium 8.2 mg/dL (8.6-10.3); Potassium 4.3 mmol/L (3.5-5.0)
[2020-12-07] MEDS: Lidocaine PATCH 5% PATCH TRANSDERM SCH (16:51)
[2020-12-07] MEDS: Lidocaine Patch REMOVE PATCH PATCH OFF SCH (19:56)
[2020-12-07] MEDS ORDERED: Lidocaine Patch REMOVE PATCH PATCH OFF SCH (21:00)
[2020-12-07] MEDS ORDERED: Dextrose 50% Syringe 50 ml 25 GM/50 ML SYRINGE IV PUSH PRN (23:35)
[2020-12-08] MEDS: ZOSYN 3.375 GM Q8H per EXTENDED INFUSION IV SCH (00:06)
[2020-12-08] MEDS: HYDROmorphone 1 MG/1 ML SYRINGE IV PRN ×3 (05:00→20:03)
[2020-12-08 05:43] LABS: Hematocrit 26 % (35-47); Hemoglobin 8.2 g/dL (12.0-16.0); Mean Corpuscular HGB Conc 32 g/dL (31-36); Mean Corpuscular Hemoglobin 26 pg (27-31); Mean Corpuscular Volume 81 fL (80-97); Mean Platelet Volume 7.5 fL (7.4-10.4); Platelet Count 326 10^3/uL (150-450); Red Blood Count 3.18 10^6 /uL (3.70-4.87); Red Cell Distribution Width 17 % (10-15); White Blood Count 12.1 10^3/uL (3.5-10.8)
[2020-12-08 06:02] LABS: Albumin 2.6 g/dL (3.2-5.2); Albumin/Globulin Ratio 0.7 (1-3); Calcium 8.6 mg/dL (8.6-10.3); Globulin 3.7 g/dL (2-4); Potassium 4.3 mmol/L (3.5-5.0); Total Bilirubin 0.3 mg/dL (0.2-1.0); Total Protein 6.3 g/dL (6.4-8.9)
[2020-12-08 07:17] LABS: ABS Eosinophils 0.4 10^3/ul (0-0.6); ABS Lymphocytes 1.8 10^3/ul (1.0-4.8); ABS Monocytes 1.2 10^3/ul (0-0.8); ABS Neutrophils 8.6 10^3/ul (1.5-7.7); Eosinophil % 3.2 %; Lymphocyte % 15.2 %
[2020-12-08 07:20] LABS: Polychromasia 2+
[2020-12-08] MEDS: Lidocaine PATCH 5% PATCH TRANSDERM SCH (08:14)
[2020-12-08] MEDS: Pantoprazole VIAL 40 MG VIAL IV SCH (08:15)
[2020-12-08] MEDS ORDERED: Insulin GLARGINE 100 un/ml 10 ml VIAL SUBCUT SCH (09:00)
[2020-12-08] MEDS: Miconazole TOPICAL CREAM 2% 30 GM TOPICAL SCH (10:25)
[2020-12-08] MEDS: Saline FLUSH-CENTRAL 10 ML SYRINGE CENT\\PICC SCH ×2 (12:53→23:20)
[2020-12-08 16:33] LABS: PCO2 Arterial 44 mmHg (35-45); PO2 Arterial 75 mmHg (80-100)
[2020-12-08] MEDS: Lidocaine Patch REMOVE PATCH PATCH OFF SCH (20:26)
[2020-12-09] MEDS: HYDROmorphone 1 MG/1 ML SYRINGE IV PRN ×4 (03:00→21:47)
[2020-12-09] MEDS: Pantoprazole VIAL 40 MG VIAL IV SCH (08:57)
[2020-12-09] MEDS: Insulin GLARGINE 100 un/ml 10 ml VIAL SUBCUT SCH (08:58)
[2020-12-09] MEDS: Lidocaine PATCH 5% PATCH TRANSDERM SCH (09:07)
[2020-12-09 09:57] LABS: ABS Basophils 0.1 10^3/ul (0-0.2); ABS Eosinophils 0.3 10^3/ul (0-0.6); ABS Lymphocytes 2.7 10^3/ul (1.0-4.8); ABS Monocytes 0.9 10^3/ul (0-0.8); ABS Neutrophils 9.1 10^3/ul (1.5-7.7); Hematocrit 27 % (35-47); Hemoglobin 8.3 g/dL (12.0-16.0); Lymphocyte % 20.6 %; Mean Corpuscular HGB Conc 31 g/dL (31-36); Mean Corpuscular Hemoglobin 25 pg (27-31); Mean Corpuscular Volume 80 fL (80-97); Mean Platelet Volume 7.2 fL (7.4-10.4); Nucleated Red Blood Cells % 0.1; Platelet Count 338 10^3/uL (150-450); Red Blood Count 3.31 10^6 /uL (3.70-4.87); Red Cell Distribution Width 17 % (10-15)
[2020-12-09 10:09] LABS: ALT 7 U/L (7-52); AST 7 U/L (13-39); Albumin 2.7 g/dL (3.2-5.2); Albumin/Globulin Ratio 0.7 (1-3); Alkaline Phosphatase 121 U/L (35-149); Anion Gap 5 mmol/L (2-11); Blood Urea Nitrogen 9 mg/dL (6-24); CO2 Carbon Dioxide 30 mmol/L (22-32); Calcium 8.8 mg/dL (8.6-10.3); Chloride 98 mmol/L (101-111); Globulin 3.8 g/dL (2-4); Glucose 324 mg/dL (70-100); Potassium 4.5 mmol/L (3.5-5.0); Sodium 133 mmol/L (135-145); Total Protein 6.5 g/dL (6.4-8.9)
[2020-12-09] MEDS: Saline FLUSH-CENTRAL 10 ML SYRINGE CENT\\PICC SCH ×2 (12:53→21:23)
[2020-12-09] MEDS: Lidocaine Patch REMOVE PATCH PATCH OFF SCH (21:06)
[2020-12-09 22:31] LABS: % Iron Saturation 10 % (15-55); Iron 24 ug/dL (50-212); Total Iron Binding Capacity 252 mcg/dL (250-450); Transferrin 180 mg/dL (203-362); Unsaturated Iron Binding < 237 ug/dL
[2020-12-09 22:44] LABS: Ferritin 65.9 ng/mL (11-307)
[2020-12-09 22:48] LABS: Folate 10.57 ng/mL (5.90-24.80)
[2020-12-09 22:49] LABS: Vitamin B12 850 pg/mL (180-914)
[2020-12-10] MEDS: HYDROmorphone 1 MG/1 ML SYRINGE IV PRN ×2 (06:49→12:52)
[2020-12-10 08:40] LABS: Hematocrit 27 % (35-47); Hemoglobin 8.4 g/dL (12.0-16.0); Mean Corpuscular HGB Conc 32 g/dL (31-36); Mean Corpuscular Hemoglobin 26 pg (27-31); Mean Corpuscular Volume 81 fL (80-97); Mean Platelet Volume 7.6 fL (7.4-10.4); Platelet Count 342 10^3/uL (150-450); Red Blood Count 3.27 10^6 /uL (3.70-4.87); Red Cell Distribution Width 18 % (10-15); White Blood Count 9.9 10^3/uL (3.5-10.8)
[2020-12-10 08:57] LABS: Calcium 8.6 mg/dL (8.6-10.3); Potassium 4.7 mmol/L (3.5-5.0)
[2020-12-10 09:33] LABS: ABS Basophils 0.1 10^3/ul (0-0.2); ABS Eosinophils 0.4 10^3/ul (0-0.6); ABS Lymphocytes 2.5 10^3/ul (1.0-4.8); ABS Monocytes 0.9 10^3/ul (0-0.8); ABS Neutrophils 6.1 10^3/ul (1.5-7.7); Eosinophil % 3.6 %; Nucleated Red Blood Cells % 0.1
[2020-12-10] MEDS: Insulin GLARGINE 100 un/ml 10 ml VIAL SUBCUT SCH (09:39)
[2020-12-10] MEDS: Lidocaine PATCH 5% PATCH TRANSDERM SCH (09:53)
[2020-12-10] MEDS: Pantoprazole VIAL 40 MG VIAL IV SCH (10:03)
[2020-12-10] MEDS ORDERED: Al Hydrox/Mg Hydrox/Simet LIQ 30 ML UDC PO ONE (11:56)
[2020-12-10] MEDS: Saline FLUSH-CENTRAL 10 ML SYRINGE CENT\\PICC SCH ×2 (13:47→22:43)
[2020-12-10] MEDS ORDERED: Magnesium Hydroxide LIQ 30 ML UDC PO PRN (14:19)
[2020-12-10] MEDS: Lidocaine Patch REMOVE PATCH PATCH OFF SCH (20:55)
[2020-12-11 08:42] LABS: Glucose Confirmatory 400 mg/dL (70-100)
[2020-12-11] MEDS ORDERED: Insulin GLARGINE 100 un/ml 10 ml VIAL SUBCUT SCH (09:00)
[2020-12-11] MEDS ORDERED: Linaclotide 290 mcg CAP (NF) PO SCH (09:00)
[2020-12-11] MEDS: Lidocaine PATCH 5% PATCH TRANSDERM SCH (09:31)
[2020-12-11] MEDS: Saline FLUSH-CENTRAL 10 ML SYRINGE CENT\\PICC SCH (14:51)
[2020-12-11] MEDS: Lidocaine Patch REMOVE PATCH PATCH OFF SCH (21:22)
[2020-12-12] MEDS: Saline FLUSH-CENTRAL 10 ML SYRINGE CENT\\PICC SCH ×2 (01:08→12:43)
[2020-12-12 05:27] LABS: ABS Basophils 0.1 10^3/ul (0-0.2); ABS Eosinophils 0.4 10^3/ul (0-0.6); ABS Lymphocytes 2.6 10^3/ul (1.0-4.8); ABS Neutrophils 4.9 10^3/ul (1.5-7.7); Eosinophil % 4.3 %; Hematocrit 29 % (35-47); Hemoglobin 9.3 g/dL (12.0-16.0); Lymphocyte % 29.2 %; Mean Corpuscular HGB Conc 32 g/dL (31-36); Mean Corpuscular Hemoglobin 25 pg (27-31); Mean Corpuscular Volume 80 fL (80-97); Mean Platelet Volume 7.5 fL (7.4-10.4); Nucleated Red Blood Cells % 0.1; Platelet Count 399 10^3/uL (150-450); Red Blood Count 3.65 10^6 /uL (3.70-4.87); Red Cell Distribution Width 17 % (10-15)
[2020-12-12 05:42] LABS: Calcium 9.2 mg/dL (8.6-10.3); Potassium 4.3 mmol/L (3.5-5.0)
[2020-12-12] MEDS: Lidocaine PATCH 5% PATCH TRANSDERM SCH (08:56)
[2020-12-12] MEDS: CMC:LINACLOTIDE 72 MCG CAP (NF) PO SCH (08:57)
[2020-12-12] MEDS ORDERED: Insulin GLARGINE 100 un/ml 10 ml VIAL SUBCUT SCH (09:00)
[2020-12-12] MEDS: Insulin GLARGINE 100 un/ml 10 ml VIAL SUBCUT SCH (09:03)
[2020-12-12] MEDS ORDERED: Butalb/Acetamin/Caff TAB 325-50-40MG PO ONE (11:32)
[2020-12-12 13:27] LABS: Glucose Confirmatory 412 mg/dL (70-100)
[2020-12-12 17:31] LABS: Glucose Confirmatory 431 mg/dL (70-100)
[2020-12-12] MEDS: Lidocaine Patch REMOVE PATCH PATCH OFF SCH (21:52)
[2020-12-13] MEDS: Saline FLUSH-CENTRAL 10 ML SYRINGE CENT\\PICC SCH ×2 (01:32→11:56)
[2020-12-13 07:28] LABS: ABS Basophils 0.1 10^3/ul (0-0.2); ABS Eosinophils 0.5 10^3/ul (0-0.6); ABS Neutrophils 5.9 10^3/ul (1.5-7.7); Eosinophil % 4.5 %; Hematocrit 30 % (35-47); Hemoglobin 9.6 g/dL (12.0-16.0); Lymphocyte % 28.4 %; Mean Corpuscular HGB Conc 32 g/dL (31-36); Mean Corpuscular Hemoglobin 25 pg (27-31); Mean Corpuscular Volume 80 fL (80-97); Mean Platelet Volume 7.3 fL (7.4-10.4); Nucleated Red Blood Cells % 0.1; Platelet Count 399 10^3/uL (150-450); Red Blood Count 3.77 10^6 /uL (3.70-4.87); Red Cell Distribution Width 17 % (10-15); White Blood Count 10.5 10^3/uL (3.5-10.8)
[2020-12-13 07:46] LABS: Magnesium 1.5 mg/dL (1.9-2.7); Potassium 4.4 mmol/L (3.5-5.0)
[2020-12-13] MEDS ORDERED: Magnesium Sulfate IV 3 GM in NS 0.9% 100 ml BAG 100 ML IVPB ONE (08:04)
[2020-12-13] MEDS: Insulin GLARGINE 100 un/ml 10 ml VIAL SUBCUT SCH (08:56)
[2020-12-13] MEDS: CMC:LINACLOTIDE 72 MCG CAP (NF) PO SCH (09:11)
[2020-12-13] MEDS: Lidocaine PATCH 5% PATCH TRANSDERM SCH (09:16)
[2020-12-13] MEDS: Butalb/Acetamin/Caff TAB 325-50-40MG PO PRN (10:09)
[2020-12-13] MEDS ORDERED: SUMAtriptan Subcut 6 MG/0.5 ML VIAL SUBCUT ONE (13:01)
[2020-12-13] MEDS: Lidocaine Patch REMOVE PATCH PATCH OFF SCH (20:45)
[2020-12-14] MEDS: Saline FLUSH-CENTRAL 10 ML SYRINGE CENT\\PICC SCH ×2 (00:19→11:59)
[2020-12-14 05:42] LABS: ABS Basophils 0.1 10^3/ul (0-0.2); ABS Eosinophils 0.5 10^3/ul (0-0.6); ABS Lymphocytes 2.5 10^3/ul (1.0-4.8); ABS Monocytes 0.9 10^3/ul (0-0.8); ABS Neutrophils 6.2 10^3/ul (1.5-7.7); Hematocrit 32 % (35-47); Lymphocyte % 24.6 %; Mean Corpuscular HGB Conc 31 g/dL (31-36); Mean Corpuscular Hemoglobin 25 pg (27-31); Mean Corpuscular Volume 79 fL (80-97); Mean Platelet Volume 7.4 fL (7.4-10.4); Platelet Count 440 10^3/uL (150-450); Red Blood Count 4.02 10^6 /uL (3.70-4.87); Red Cell Distribution Width 17 % (10-15); White Blood Count 10.3 10^3/uL (3.5-10.8)
[2020-12-14 06:02] LABS: Calcium 9.2 mg/dL (8.6-10.3); Magnesium 2.1 mg/dL (1.9-2.7); Potassium 3.8 mmol/L (3.5-5.0)
[2020-12-14] MEDS: CMC:LINACLOTIDE 72 MCG CAP (NF) PO SCH (10:22)
[2020-12-14] MEDS: Insulin GLARGINE 100 un/ml 10 ml VIAL SUBCUT SCH (10:23)
[2020-12-14] MEDS: Lidocaine PATCH 5% PATCH TRANSDERM SCH (10:34)
[2020-12-14] MEDS: Butalb/Acetamin/Caff TAB 325-50-40MG PO PRN (12:54)
[2020-12-14 17:48] LABS: Rapid COVID-19 Molecular Undetected (Undetected)
[2020-12-14] MEDS: Lidocaine Patch REMOVE PATCH PATCH OFF SCH (21:18)
[2020-12-15] MEDS: Saline FLUSH-CENTRAL 10 ML SYRINGE CENT\\PICC SCH (02:01)
[2020-12-15] MEDS: Lidocaine PATCH 5% PATCH TRANSDERM SCH (08:06)
[2020-12-15] MEDS: Butalb/Acetamin/Caff TAB 325-50-40MG PO PRN (08:08)
[2020-12-15] MEDS: CMC:LINACLOTIDE 72 MCG CAP (NF) PO SCH (08:13)
[2020-12-15] MEDS: Insulin GLARGINE 100 un/ml 10 ml VIAL SUBCUT SCH (08:14)
[2020-12-15] MEDS: Lidocaine Patch REMOVE PATCH PATCH OFF SCH (21:14)
[2020-12-16] MEDS: Albuterol/Ipratropium NEB.SOL (2.5/0.5 MG) 3 ML NEB.SOLN INH PRN ×2 (00:11→11:49)
[2020-12-16] MEDS: Insulin GLARGINE 100 un/ml 10 ml VIAL SUBCUT SCH (09:12)
[2020-12-16] MEDS: Lidocaine PATCH 5% PATCH TRANSDERM SCH (09:14)
[2020-12-16] MEDS: CMC:LINACLOTIDE 72 MCG CAP (NF) PO SCH (09:20)
[2020-12-16] MEDS ORDERED: Acetylcysteine INHALATION SOL 200 MG/ML NEB.SOLN 10 ML INH ONE (09:49)
[2020-12-16] MEDS: Lidocaine Patch REMOVE PATCH PATCH OFF SCH (21:36)
[2020-12-17] MEDS ORDERED: Benzocaine/Menthol LOZ MT ONE (01:15)
[2020-12-17] MEDS: CMC:LINACLOTIDE 72 MCG CAP (NF) PO SCH (09:21)
[2020-12-17] MEDS: Lidocaine PATCH 5% PATCH TRANSDERM SCH (09:21)
[2020-12-17] MEDS: Insulin GLARGINE 100 un/ml 10 ml VIAL SUBCUT SCH (09:22)
[2020-12-17] MEDS: Butalb/Acetamin/Caff TAB 325-50-40MG PO PRN (22:23)
[2020-12-17] MEDS: Benzocaine/Menthol LOZ PO PRN (22:23)
[2020-12-17] MEDS: Lidocaine Patch REMOVE PATCH PATCH OFF SCH (22:27)
[2020-12-18] MEDS: Albuterol/Ipratropium NEB.SOL (2.5/0.5 MG) 3 ML NEB.SOLN INH PRN (03:55)
[2020-12-18] MEDS: CMC:LINACLOTIDE 72 MCG CAP (NF) PO SCH (09:28)
[2020-12-18] MEDS: Insulin GLARGINE 100 un/ml 10 ml VIAL SUBCUT SCH (09:29)
[2020-12-18] MEDS: Lidocaine PATCH 5% PATCH TRANSDERM SCH (09:29)
[2020-12-18] MEDS: Benzocaine/Menthol LOZ PO PRN ×2 (09:36→17:05)
[2020-12-18] MEDS: Lidocaine Patch REMOVE PATCH PATCH OFF SCH (21:03)
[2020-12-19] MEDS: Albuterol/Ipratropium NEB.SOL (2.5/0.5 MG) 3 ML NEB.SOLN INH PRN ×2 (00:20→21:12)
[2020-12-19] MEDS: Benzocaine/Menthol LOZ PO PRN ×3 (00:30→20:57)
[2020-12-19] MEDS: Lidocaine PATCH 5% PATCH TRANSDERM SCH (10:12)
[2020-12-19] MEDS: Insulin GLARGINE 100 un/ml 10 ml VIAL SUBCUT SCH (10:14)
[2020-12-19] MEDS: CMC:LINACLOTIDE 72 MCG CAP (NF) PO SCH (10:24)
[2020-12-19] MEDS: Lidocaine Patch REMOVE PATCH PATCH OFF SCH (20:53)
[2020-12-20] MEDS: Benzocaine/Menthol LOZ PO PRN ×3 (06:32→23:00)
[2020-12-20] MEDS: Lidocaine PATCH 5% PATCH TRANSDERM SCH (08:34)
[2020-12-20] MEDS: Insulin GLARGINE 100 un/ml 10 ml VIAL SUBCUT SCH (08:35)
[2020-12-20] MEDS: CMC:LINACLOTIDE 72 MCG CAP (NF) PO SCH (08:37)
[2020-12-20] MEDS: Butalb/Acetamin/Caff TAB 325-50-40MG PO PRN (08:39)
[2020-12-20] MEDS: Albuterol/Ipratropium NEB.SOL (2.5/0.5 MG) 3 ML NEB.SOLN INH PRN ×2 (14:14→20:47)
[2020-12-20] MEDS: Lidocaine Patch REMOVE PATCH PATCH OFF SCH (20:26)
[2020-12-21] MEDS: Albuterol/Ipratropium NEB.SOL (2.5/0.5 MG) 3 ML NEB.SOLN INH PRN (02:44)
[2020-12-21] MEDS: Lidocaine PATCH 5% PATCH TRANSDERM SCH (09:35)
[2020-12-21] MEDS: Insulin GLARGINE 100 un/ml 10 ml VIAL SUBCUT SCH (10:00)
[2020-12-21] MEDS: CMC:LINACLOTIDE 72 MCG CAP (NF) PO SCH (10:16)
[2020-12-21] MEDS: Benzocaine/Menthol LOZ PO PRN ×2 (10:37→18:59)
[2020-12-21] MEDS: Albuterol HFA INHALER 8 gm MDI INH PRN (16:49)
[2020-12-21] MEDS: Lidocaine Patch REMOVE PATCH PATCH OFF SCH (21:20)
[2020-12-22] MEDS: Albuterol HFA INHALER 8 gm MDI INH PRN ×3 (01:24→21:06)
[2020-12-22] MEDS: Benzocaine/Menthol LOZ PO PRN ×3 (01:32→21:04)
[2020-12-22] MEDS: Butalb/Acetamin/Caff TAB 325-50-40MG PO PRN (02:49)
[2020-12-22] MEDS: Lidocaine PATCH 5% PATCH TRANSDERM SCH (08:34)
[2020-12-22] MEDS: CMC:LINACLOTIDE 72 MCG CAP (NF) PO SCH (08:35)
[2020-12-22] MEDS: Insulin GLARGINE 100 un/ml 10 ml VIAL SUBCUT SCH (08:35)
[2020-12-22 12:32] LABS: Calcium 9.7 mg/dL (8.6-10.3); Magnesium 1.6 mg/dL (1.9-2.7); Potassium 3.5 mmol/L (3.5-5.0)
[2020-12-22] MEDS: Lidocaine Patch REMOVE PATCH PATCH OFF SCH (21:09)
[2020-12-23] MEDS: Benzocaine/Menthol LOZ PO PRN ×2 (03:04→15:40)
[2020-12-23] MEDS: CMC:LINACLOTIDE 72 MCG CAP (NF) PO SCH (09:48)
[2020-12-23] MEDS: Lidocaine PATCH 5% PATCH TRANSDERM SCH (09:51)
[2020-12-23] MEDS: Insulin GLARGINE 100 un/ml 10 ml VIAL SUBCUT SCH (09:52)
[2020-12-23 11:29] LABS: Rapid COVID-19 Molecular Undetected (Undetected)
[2020-12-23 12:05] LABS: Glucose Confirmatory 434 mg/dL (70-100)
[2020-12-23] MEDS: Lidocaine Patch REMOVE PATCH PATCH OFF SCH (21:09)
[2020-12-24] MEDS: Benzocaine/Menthol LOZ PO PRN (03:17)
[2020-12-24 07:41] VITALS: BP 122/63
[2020-12-24] MEDS: CMC:LINACLOTIDE 72 MCG CAP (NF) PO SCH (08:35)
[2020-12-24] MEDS: Lidocaine PATCH 5% PATCH TRANSDERM SCH (08:38)
[2020-12-24] MEDS: Insulin GLARGINE 100 un/ml 10 ml VIAL SUBCUT SCH (08:39)
== END 2020-12-24 09:23 | DRG 637 ==
LOC: ED 13:46 → SUATTDRO 18:11 → ICU 18:11 → SSU 12-05 21:51
PROVIDERS: ADMIT Internal Medicine; ATTEND Internal Medicine